=== PATIENT | male | born 1995 | race Caucasian/White ===

== ENCOUNTER 2023-03-12 16:09 | Emergency (ER) | payer OTHER, SELFPAY ==
--- NOTE | ~2023-03-12 | CT_ITS ---
EXAMINATION: CT cervical spine wo IV con, CT head/brain wo IV con INDICATION INFORMATION: Reason for Exam Syncope, neck pain, rule out fracture COMPARISON: None TECHNIQUE: Separate noncontrast CT examinations of the head and cervical spine were performed. Coronal and sagittal images were created for each examination at the technologist workstation. This CT examination was performed using dose optimization techniques as appropriate, variously including the following: *Automated exposure control *Adjustment of mA and/or kV according to patient size (this includes techniques or standardized protocols for targeted exams where dose is matched to indication/reason for exam; i.e. extremities or head) *Use of iterative reconstruction technique DLP: 1128 mGy-cm FINDINGS: Head: No acute osseous or soft tissue abnormality. The mastoid air cells and visualized portions of the paranasal sinuses are well aerated. There is no evidence of acute intracranial hemorrhage or territorial infarction. No abnormal mass effect or midline shift is seen. Bruce to white matter differentiation is well preserved. No extra-axial fluid collections are identified. There are several punctate calcifications in the right frontal lobe. No hydrocephalus. No significant volume loss. There is no abnormal attenuation within the brain parenchyma. Cervical spine: There is no evidence of acute cervical spine fracture. Vertebral bodies remain normal in height. Degenerative disc disease at C3-C4. Left greater than right facet arthropathy at C7-T1. Cervical straightening. No pre- or paravertebral soft tissue abnormality is identified. Visualized portions of the lung apices are unremarkable. The thyroid gland is unremarkable. Several dental caries. CT/CT cervical spine wo IV con IMPRESSION: 1. No acute intracranial abnormality including hemorrhage, mass effect, hydrocephalus, or acute territorial edematous infarction. 2. Several punctate foci of calcification in the right frontal lobe are nonspecific but may reflect dystrophic calcification in the setting of prior infection or inflammation. Correlate with clinical history. 3. No cervical spine fracture or traumatic malalignment.
[2023-03-12 16:15] VITALS: BP 145/100; PULSE 85; O2SAT 100
[2023-03-12 16:36] VITALS: BP 150/96; PULSE 85; RESP 14; TEMP 37; O2SAT 100; BMI 29.2
[2023-03-12 16:40] VITALS: BP 150/96; PULSE 85; RESP 14; TEMP 37
[2023-03-12 18:00] VITALS: BP 159/118; PULSE 78; RESP 15; TEMP 37.1; O2SAT 100
--- NOTE | 2023-03-12 18:16 | ED_ITS ---
HPI - Fall General Chief Complaint: Fall Stated Complaint: SYNCOPE Time Seen by Provider: 03/12/23 18:00 Source: patient Mode of arrival: EMS Limitations: no limitations History of Present Illness HPI Narrative: 27-year-old male who presents emergency department for evaluation tingling this in his lower extremities and syncope. The patient has a history of end-stage renal disease and was on peritoneal dialysis for 4 years. He was admitted to [facility] for abdominal pain, lower back pain, weakness and numbness of his lower extremities. He states that he was worked up for possible peritonitis and blood clots of his lower extremities. He states that while he was [facility] his pain was treated with Dilaudid. He states that he was discharged he still was having pain in his lower back and lower extremities. He states that he was walking the into his kitchen around 18:00 hours when he developed tingling this in both his legs he then had a syncopal episode. He was told by his mother that he struck his face and was unresponsive. An ambulance was called and he was brought to the emergency department. In the emergency department he is complaining of weakness, nausea, headache, tingling this in both lower extremities, lower back pain. The patient has a left chest dialysis catheter, right chest Port-A-Cath and peritoneal dialysis catheter still in place. He is receiving hemodialysis on Mondays, Wednesdays and Fridays. He states that he had a normal dialysis on Saturday with no complications. I did review summary packets obtained from [facility] pertaining to admission from 03/08/2023 until 03/11/2023. Patient initially was felt to have peritonitis secondary to peritoneal dialysis catheter and he was treated with vancomycin and Zosyn, however studies were unremarkable. The patient's pain however persisted. Discharge diagnosis was nonspecific abdominal pain, hy pertension and peritonitis. The hospitalist discharge note states the patient was requesting for opiate pain medications however there was no current indication to continue opiates as an outpatient and he was not discharged on opiates. 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 Social History Social History Alcohol intake: never Smoked in Last 30 Days: Yes Use of substances other than those prescribed or required for medical reasons: No Advance Directives: No Advance Directives Information Provided: No Physical Exam Vital Signs: Vital Signs: Last Vital Signs Temp 98.8 F 03/12/23 20:00 Pulse 77 03/12/23 20:00 Resp 15 03/12/23 20:00 BP 147/102 H 03/12/23 20:00 Pulse Ox 97 03/12/23 20:00 O2 Del Method Room Air 03/12/23 20:00 BMI result Body Mass Index 29.2 Const: Other: Awake, alert, male patient, pleasant, cooperative, he is tearful, answers all questions appropriately HEENT: Other: Patient's head is normal cephalic he does have tenderness palpation of his forehead, there is no facial tenderness, no ecchymosis or lacerations noted, mouth red moist membranes, pupils equal, round, reactive to light, sclera cont act however normal, no tenderness palpation of the patient's nose Eyes: General: appearance normal, both eyes and all related structures Pupils: Equal, round and reactive pupils present Neck: Other: Patient has diffuse tenderness with palpation of his trapezius muscles bilaterally with no localizing point tenderness palpation over the cervical spine Chest: Chest palpation & inspection: normal inspection of the chest and normal palpation of entire chest wall Resp: Effort & Inspection: normal respiratory effort and able to speak in complete sentences Auscultation: clear to auscultation bilaterally Cardio: Rate: regular rate Rhythm: regular rhythm Heart sounds: S1 normal heart sound present, S2 normal heart sound present and no murmurs GI: Other: Patient's abdomen does not appear to be distended, he has normoactive bowel sounds, he has mild diffuse tenderness, there is a peritoneal dialysis catheter in place Back/Spine/Pelvis: Other: Patient has no localizing point tenderness with palpation over his vertebrae of his back, he does have bilateral paraspinal muscle tenderness in the lumbar sacral area, there is no ecchymosis or lesions in this area Skin: General skin exam: no rashes or lesions noted Neuro: Other: Patient is oriented to person place, answers questions appropriately Cranial nerves: Yes CN's II-XII intact bilaterally and Yes Equal, round and reactive pupils present Cognition (Neuro): normal cognition Motor exam (neuro): 5/5 motor strength present throughout Deep tendon reflexes (DTR's): Right triceps reflex intensity grade: 2+, Left triceps reflex intensity grade: 2+, Rt Biceps (C5, C6): 2+, Left biceps reflex intensity grade: 2+, Right brachioradialis reflex intensity grade: 2+, Left brachioradialis reflex intensity grade: 2+, Right patellar reflex intensity grade: 2+, Left patellar reflex intensity grade: 2+, Right ankle reflex intensity grade: 2+ and Left ankle reflex intensity grade: 2+ Extrem: Other: Patient does have ecchymosis to his knees bilaterally, he has full range of motion of both knees, there is no edema noted to his lower extremities and his extremities are neurovascular intact Psych: Appearance: grossly normal Speech and movement: Normal speech and movement present Affect: Sad affect present (Patient is tearful) Attitude: cooperative Thought process: Normal thought process present Thought content: Normal thought content present Medications Administered Discontinued Medications Generic Name Dose Route Start Last Admin Trade Name Ruth Ann PRN Reason Stop Dose Admin Hydromorphone HCl 1 mg 03/12/23 18:18 03/12/23 19:08 Hydromorphone Hcl 1 Mg/Ml Syringe IVPUSH 03/12/23 18:19 1 mg ONCE STA Administration Protocol Hydromorphone HCl 1 mg 03/12/23 21:02 03/12/23 21:10 Hydromorphone Hcl 1 Mg/Ml Syringe IVPUSH 03/12/23 21:03 1 mg ONCE STA Administration Protocol Ondansetron HCl 4 mg 03/12/23 18:18 03/12/23 19:08 Ondansetron Hcl 4 Mg/2 Ml Vial IVPUSH 03/12/23 18:19 4 mg ONCE ONE Administration Medical Decision Making Medical Decision Making [facility] Narrative: 27-year-old male history of end-stage renal disease with 4 years of peritoneal dialysis now with hemodialysis on Saturday, Saturday and Saturday who presents emergency department for evaluation of lower back, lower extremity pain and tingling of his lower extremities x5 days with syncopal episode today when he was walking to his kitchen. Patient did fall face forward and was reported to have a loss of consciousness by his mother. Patient was recently hospitalized at [facility] for lower back , lower extremity pain , abdominal pain and peritonitis which was initially treated with antibiotics but the infectious workup was negative. The patient's physical examination did reveal mild diffuse abdominal tenderness, tenderness palpation of his trapezius muscles, tenderness with palpation of his lumbar sacral paraspinal muscles with no point tenderness of his cervical spine or vertebrae. Patient's lower extremities have normal strength with normal reflexes and his neurologic exam was nonfocal. I ordered the following tests: CBC, CMP, lipase, ethanol, PT/INR, PTT CT scan of the cervical spine, CT scan of the brain. Ordered the nurse to access his Port-A-Cath and the patient was given Zofran 4 mg IV and Dilaudid 1 mg IV. Patient will be placed on a cardiac and O2 saturation monitor 2101: Patient's electrolytes were unremarkable, mild anemia but chronic Patient's PTT is elevated however patient does have a Port-A-Cath and has had burn flushes. CT scan of the head and cervical spine were unremarkable Patient is feeling better after the above treatment, however he is still having pains was given a 2nd dose of Dilaudid 1 mg IV. Patient will be discharged home and advised to follow-up with his PCP and [facility] [employer] [facility]. Differential Diagnosis Differential diagnosis includes was not limited to: syncope caused by arrhythmia, anemia, electrolyte abnormality, anemia, hyperventilation syndrome/anxiety Skull fracture, cervical fracture, intracranial bleed Admission/Observation Consideration of admission/observation: Escalation of care including admission/observation considered Lab Data MDM Lab Attestation statement: I reviewed the patient's lab results. My interpretation patient's laboratory evaluation is as follows: Anemia with an H&H of 11 and 33 with a normal MCV-consistent anemia chronic disease/renal failure. Low platelet count a 203602. PTT is elevated at 123, the patient does have a Port-A-Cath that is been flushed with heparin and is also a dialysis patient. 06/20/23 18:52 03/12/23 18:52 Labs: Lab Results 03/12/23 03/12/23 03/12/23 Range/Units 18:52 18:52 18:52 WBC 5.5 (4.8-10.8) X10*3/uL RBC 3.70 L (4.60-5.80) X10*6/uL Hgb 11.0 L (14.0-18.0) g/dl Hct 33.4 L (42.0-52.0) % MCV 90.3 (80.0-98.0) fL MCH 29.7 (27.0-33.0) pg MCHC 32.9 (31.0-36.0) g/dl RDW 13.7 (11.0-16.0) % Plt Count 127 L (160-400) X10*3/uL MPV 9.2 L (9.4-12.4) fL Immature Gran % (Auto) 0.4 (0.0-0.4) % Neut % (Auto) 61.5 (45-73) % Lymph % (Auto) 22.8 (20-40) % [place] % (Auto) 12.2 H (2-11) % Eos % (Auto) 2.4 (0-4) % Baso % (Auto) 0.7 (0-2) % Lymph # (Auto) 1.3 (1.2-4.9) X10*3/uL [place] # (Auto) 0.7 (0.1-1.2) X10*3/uL Eos # (Auto) 0.1 (0.0-0.4) X10*3/uL Baso # (Auto) 0.0 (0.0-0.2) X10*3/uL Abs Immat Gran (auto) 0.02 (0.00-0.03) X10*3/uL Absolute Neuts (auto) 3.4 (2.0-8.3) x10*3/uL Absolute Nucleated RBC 0.000 (0.0-0.012) X10*3/uL Nucleated RBC % (auto) 0.0 (0.0-0.2) /100WBC PT 10.0 (10.0-13.1) SEC INR 0.9 (0.9-1.1) APTT 123.4 H* (26.0-36.4) SEC Sodium 140 (135-145) mmol/L Potassium 4.3 (3.3-5.1) mmol/L Chloride 98 (96-108) mmol/L Carbon Dioxide 26 (22-29) mmol/L Anion Gap 20 (12-20) BUN 18 H (9-16) mg/dL Creatinine 10.67 H* (0.5-1.4) mg/dL Estim Creat Clear Calc 12.4 Estimated GFR 6 Random Glucose 80 (60-115) mg/dL Calcium 10.0 (8.4-10.2) mg/dL Total Bilirubin 0.6 (0.0-1.0) mg/dL AST 33 (5-37) U/L ALT 17 (0-40) U/L Alkaline Phosphatase 58 (39-117) U/L Total Protein 6.1 L (6.5-8.0) g/dL Albumin 3.7 (3.5-5.0) g/dL Lipase 15 (8-78) U/L Ethyl Alcohol mg/dL 03/12/23 Range/Units 18:52 WBC (4.8-10.8) X10*3/uL RBC (4.60-5.80) X10*6/uL Hgb (14.0-18.0) g/dl Hct (42.0-52.0) % MCV (80.0-98.0) fL MCH (27.0-33.0) pg MCHC (31.0-36.0) g/dl RDW (11.0-16.0) % Plt Count (160-400) X10*3/uL MPV (9.4-12.4) fL Immature Gran % (Auto) (0.0-0.4) % Neut % (Auto) (45-73) % Lymph % (Auto) (20-40) % [place] % (Auto) (2-11) % Eos % (Auto) (0-4) % Baso % (Auto) (0-2) % Lymph # (Auto) (1.2-4.9) X10*3/uL [place] # (Auto) (0.1-1.2) X10*3/uL Eos # (Auto) (0.0-0.4) X10*3/uL Baso # (Auto) (0.0-0.2) X10*3/uL Abs Immat Gran (auto) (0.00-0.03) X10*3/uL Absolute Neuts (auto) (2.0-8.3) x10*3/uL Absolute Nucleated RBC (0.0-0.012) X10*3/uL Nucleated RBC % (auto) (0.0-0.2) /100WBC PT (10.0-13.1) SEC INR (0.9-1.1) APTT (26.0-36.4) SEC Sodium (135-145) mmol/L Potassium (3.3-5.1) mmol/L Chloride (96-108) mmol/L Carbon Dioxide (22-29) mmol/L Anion Gap (12-20) BUN (9-16) mg/dL Creatinine (0.5-1.4) mg/dL Estim Creat Clear Calc Estimated GFR Random Glucose (60-115) mg/dL Calcium (8.4-10.2) mg/dL Total Bilirubin (0.0-1.0) mg/dL AST (5-37) U/L ALT (0-40) U/L Alkaline Phosphatase (39-117) U/L Total Protein (6.5-8.0) g/dL Albumin (3.5-5.0) g/dL Lipase (8-78) U/L Ethyl Alcohol < 10 mg/dL Independent Interpretation I performed an independent interpretation of an: EKG Interpretation: My independent interpretation patient's 12 EKG is as follows: Normal sinus rhythm at a rate of 79, normal VT interval, prolonged QRS of 102 milliseconds, normal QTC interval, inverted T-waves in lead 1 and aVL, no ST segment elevatio n, no ST segment depression, no PACs, no PVCs, except for the T-wave abnormalities this is a normal EKG Radiology Impression Discussion of test interpretation with radiology: I have reviewed the radiologist's reading. Radiologist Impression: CT head/brain wo IV con and CT cervical spine wo IV con IMPRESSION: 1. No acute intracranial abnormality including hemorrhage, mass effect, hydrocephalus, or acute territorial edematous infarction. 2. Several punctate foci of calcification in the right frontal lobe are nonspecific but may reflect dystrophic calcification in the setting of prior infection or inflammation. Correlate with clinical history. 3. No cervical spine fracture or traumatic malalignment. Dictated By:Jamaal Serrato Discharge Plan Discharge Clinical Impression: Bilateral lower extremity pain Back pain Qualifiers: Back pain location: low back pain Chronicity: acute Back pain laterality: bilateral Sciatica presence: without sciatica Qualified Code(s): M54.50 - Low back pain, unspecified Syncope Qualifiers: Encounter type: initial encounter Patient Disposition: Home, Self-Care Instructions: Syncope (ED) Additional Instructions: The CT scan your head and neck revealed no skull fracture, no bleeding in the brain, no neck fracture Your blood work revealed mild anemia which is consistent with your kidney disease Your electrolytes were normal At this time I do not have a clear cause for your back pain, leg pain and for passing out. You did receive Dilaudid 1 mg IV x2 here in the emergency department. Continue taking medications as prescribed by your providers. Follow-up with your doctor in 2 days. Please return to the emergency department if your symptoms get worse or if you develop any symptoms that are concerning to you.
[2023-03-12 18:56] LABS: MANUAL DIFF FLAG NO
[2023-03-12 19:00] LABS: Basophils Percent Auto 0.7 % (0-2); Eosinophils Absolute Auto 0.1 X10*3/uL (0.0-0.4); Eosinophils Percent Auto 2.4 % (0-4); Hematocrit 33.4 % (42.0-52.0); Imm Gran Abs Auto 0.02 X10*3/uL (0.00-0.03); Imm Gran Pct Auto 0.4 % (0.0-0.4); Lymphocytes Absolute Auto 1.3 X10*3/uL (1.2-4.9); Lymphocytes Percent Auto 22.8 % (20-40); Mean Corpuscular HGB Conc 32.9 g/dl (31.0-36.0); Mean Corpuscular Hemoglobin 29.7 pg (27.0-33.0); Mean Corpuscular Volume 90.3 fL (80.0-98.0); Mean Platelet Volume 9.2 fL (9.4-12.4); Monocytes Absolute Auto 0.7 X10*3/uL (0.1-1.2); Monocytes Percent Auto 12.2 % (2-11); Neutrophils Absolute Auto 3.4 x10*3/uL (2.0-8.3); Neutrophils Percent Auto 61.5 % (45-73); Platelet Count 127 X10*3/uL (160-400); Red Cell Distribution Width 13.7 % (11.0-16.0); White Blood Count 5.5 X10*3/uL (4.8-10.8)
[2023-03-12] MEDS: ondansetron HCL 4 MG/2 ML VIAL IVPUSH (19:08)
[2023-03-12] MEDS: HYDROmorphone HCl 1 MG/ML SYRINGE IVPUSH ×2 (19:08→21:10)
[2023-03-12 19:18] LABS: Ethanol < 10 mg/dL
[2023-03-12 19:23] LABS: Alanine Aminotransferase 17 U/L (0-40); Albumin Level 3.7 g/dL (3.5-5.0); Alkaline Phosphatase 58 U/L (39-117); Anion Gap 20 (12-20); Aspartate Amino Transferase 33 U/L (5-37); Bilirubin Total 0.6 mg/dL (0.0-1.0); Blood Urea Nitrogen 18 mg/dL (9-16); Carbon Dioxide 26 mmol/L (22-29); Chloride 98 mmol/L (96-108); Creatinine Clr Calc Pharmacy 12.4; Estimated Glomerular Filt Rate 6; Glucose Random 80 mg/dL (60-115); Lipase 15 U/L (8-78); Potassium 4.3 mmol/L (3.3-5.1); Sodium 140 mmol/L (135-145); Total Protein 6.1 g/dL (6.5-8.0)
[2023-03-12 19:32] LABS: INTERNATIONAL NORM RATIO 0.9 (0.9-1.1)
--- NOTE | 2023-03-12 19:54 | PC.NURSE ---
assumed care of patient at 1900 - pt medicated per nov. pt reporting 8/10 pain to thighs radiating to lower back. pt states this has been constant for a few weeks now. pt given zofran as well for nausea. on cardiac care unit nurse, resting comfortably. call navarro within reach. waiting for CT scans and ED provider. will CTM.
[2023-03-12 20:00] VITALS: BP 147/102; PULSE 77; RESP 15; TEMP 37.1; O2SAT 97
--- NOTE | 2023-03-12 21:12 | ECG_ITS ---
Test Reason : SYNCOPE Blood Pressure : / mmHG Vent. Rate : 079 BPM Atrial Rate : 079 BPM P-R Int : 178 ms QRS Dur : 102 ms QT Int : 386 ms P-R-T Axes : 041 009 072 degrees QTc Int : 442 ms Normal sinus rhythm Nonspecific ST and T wave abnormality Abnormal ECG No previous ECGs available Referred By: Stefan Medina Electronically Signed By:CHASE FERREIRA
[2023-03-12 21:41] LABS: Partial Thromboplastin Time 123.4 SEC (26.0-36.4)
--- NOTE | 2023-03-12 22:02 | PC.NURSE ---
pt port deaccessed using normal saline flush and heparin lock flush per provider request. dressing applied. pt tolerated well. pt ready for discharge. verbalizes understanding of discharge instructions . no apparent distress or current complaints.
== END 2023-03-12 22:10 | disposition home or self-care (01) ==
PROVIDERS: Emergency Provider Emergency Medicine Emergency Medical Services
DX: R55 Syncope and collapse (principal); M54.50 Low back pain, unspecified; R20.0 Anesthesia of skin; R60.0 Localized edema; M54.2 Cervicalgia; R51.9 Headache, unspecified; Z79.899 Other long term (current) drug therapy
CPT/HCPCS: 36415; 70450; 72125; 80053; 80307; 83690; 85025; 85610; 85730; 93005; 96374; 96375; 96376; 99284; J1170; J1642; J2405

== ENCOUNTER 2023-03-13 13:27 | Inpatient (IN) | payer OTHER, SELFPAY ==
--- NOTE | 2023-03-13 | EEG_ITS ---
INTERPRETATION: This is a 16-channel EEG with an EKG lead. Patient is reported drowsy during the tracing. Background is intermittently about 10 hertz, 5 to 20 microvolt posteriorly and lower amplitude fast anteriorly. Patient goes in and out of drowsiness. Also, intermittently bifrontal slowing was noted in theta to delta range with 1 bifrontal sharp wave. Photic stimulation did not produce any significant driving. Hyperventilation is not performed. Cardiac lead did not reveal any significant abnormality. 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 MD KARINA Turpin/BALA / [id number]
--- NOTE | ~2023-03-13 | XR_ITS ---
EXAMINATION: CHEST, LEFT SHOULDER, AND LEFT ELBOW CLINICAL INFORMATION: Fall with pain COMPARISON: Elbow of July 20, 2015 TECHNIQUE: Two-view chest, 3 view left shoulder, and 3 view left elbow. FINDINGS: Two-view chest does not demonstrate any evidence of acute parenchymal disease, pneumothorax, or pleural effusion. Heart normal size. No evidence of pulmonary edema. Right internal jugular port catheter in place with tip in the distal superior vena cava. Left internal jugular dialysis catheter seen with tip in the region of the superior right atrium. There is no evidence of acute fracture or dislocation of the left shoulder. Glenohumeral joint appears unremarkable. No evidence of calcific tendinitis. Acromioclavicular joint appears unremarkable. No widening of the coracoclavicular space is seen. There is no evidence of acute fracture or dislocation of the left elbow. No left elbow effusion is identified. Joint spaces are maintained. XR/XR elbow LT min 3V IMPRESSION: No acute disease within the chest. No significant bony abnormality of the left shoulder identified. No bony abnormality or effusion of the left elbow.
--- NOTE | ~2023-03-13 | XR_ITS ---
EXAMINATION: CHEST, LEFT SHOULDER, AND LEFT ELBOW CLINICAL INFORMATION: Fall with pain COMPARISON: Elbow of July 20, 2015 TECHNIQUE: Two-view chest, 3 view left shoulder, and 3 view left elbow. FINDINGS: Two-view chest does not demonstrate any evidence of acute parenchymal disease, pneumothorax, or pleural effusion. Heart normal size. No evidence of pulmonary edema. Right internal jugular port catheter in place with tip in the distal superior vena cava. Left internal jugular dialysis catheter seen with tip in the region of the superior right atrium. There is no evidence of acute fracture or dislocation of the left shoulder. Glenohumeral joint appears unremarkable. No evidence of calcific tendinitis. Acromioclavicular joint appears unremarkable. No widening of the coracoclavicular space is seen. There is no evidence of acute fracture or dislocation of the left elbow. No left elbow effusion is identified. Joint spaces are maintained. XR/XR chest 2V IMPRESSION: No acute disease within the chest. No significant bony abnormality of the left shoulder identified. No bony abnormality or effusion of the left elbow.
--- NOTE | ~2023-03-13 | XR_ITS ---
EXAMINATION: CHEST, LEFT SHOULDER, AND LEFT ELBOW CLINICAL INFORMATION: Fall with pain COMPARISON: Elbow of July 20, 2015 TECHNIQUE: Two-view chest, 3 view left shoulder, and 3 view left elbow. FINDINGS: Two-view chest does not demonstrate any evidence of acute parenchymal disease, pneumothorax, or pleural effusion. Heart normal size. No evidence of pulmonary edema. Right internal jugular port catheter in place with tip in the distal superior vena cava. Left internal jugular dialysis catheter seen with tip in the region of the superior right atrium. There is no evidence of acute fracture or dislocation of the left shoulder. Glenohumeral joint appears unremarkable. No evidence of calcific tendinitis. Acromioclavicular joint appears unremarkable. No widening of the coracoclavicular space is seen. There is no evidence of acute fracture or dislocation of the left elbow. No left elbow effusion is identified. Joint spaces are maintained. XR/XR shoulder LT min 2V IMPRESSION: No acute disease within the chest. No significant bony abnormality of the left shoulder identified. No bony abnormality or effusion of the left elbow.
--- NOTE | ~2023-03-13 | CT_ITS ---
EXAMINATION: CT HEAD WITHOUT CONTRAST CT CERVICAL SPINE WITHOUT CONTRAST CLINICAL INFORMATION: Headache. Syncope. Neck pain. COMPARISON: CT head and cervical spine 03/12/2023 TECHNIQUE: Imaging was performed from the skull base to vertex without intravenous administration of contrast. In addition, helical noncontrast CT imaging was acquired through the cervical spine and source images were reviewed along with axial reconstructions and sagittal and coronal MPRs. [This CT examination was performed using dose optimization techniques as appropriate, variously including the following: *Automated exposure control *Adjustment of mA and/or kV according to patient size (this includes techniques or standardized protocols for targeted exams where dose is matched to indication/reason for exam; i.e. extremities or head) *Use of iterative reconstruction technique] DLP: 1253 mGy-cm FINDINGS: HEAD: No intracranial mass, hemorrhage, or midline shift is visualized. The ventricles and sulci are proportional. No extra-axial collections are identified. Redemonstration of small calcifications in the right frontal lobe unchanged since prior studies. The paranasal sinuses and mastoid air cells are well aerated. CERVICAL SPINE: There is no evidence of acute cervical spine fracture. Vertebral bodies remain normal in height. Cervical vertebrae have normal alignment. There is multilevel degenerative spondylosis of the cervical spine with disc height narrowing and endplate spurs. This is most significant at the C3-C4 disc level. No pre- or paravertebral soft tissue abnormality is identified. Limited assessment of the lung apices is unremarkable. CT/CT cervical spine wo IV con IMPRESSION: 1. No acute intracranial pathology. 2. No CT evidence of acute cervical spine fracture or traumatic subluxation
--- NOTE | ~2023-03-13 | CT_ITS ---
EXAMINATION: CT HEAD WITHOUT CONTRAST CT CERVICAL SPINE WITHOUT CONTRAST CLINICAL INFORMATION: Headache. Syncope. Neck pain. COMPARISON: CT head and cervical spine 03/12/2023 TECHNIQUE: Imaging was performed from the skull base to vertex without intravenous administration of contrast. In addition, helical noncontrast CT imaging was acquired through the cervical spine and source images were reviewed along with axial reconstructions and sagittal and coronal MPRs. [This CT examination was performed using dose optimization techniques as appropriate, variously including the following: *Automated exposure control *Adjustment of mA and/or kV according to patient size (this includes techniques or standardized protocols for targeted exams where dose is matched to indication/reason for exam; i.e. extremities or head) *Use of iterative reconstruction technique] DLP: 1253 mGy-cm FINDINGS: HEAD: No intracranial mass, hemorrhage, or midline shift is visualized. The ventricles and sulci are proportional. No extra-axial collections are identified. Redemonstration of small calcifications in the right frontal lobe unchanged since prior studies. The paranasal sinuses and mastoid air cells are well aerated. CERVICAL SPINE: There is no evidence of acute cervical spine fracture. Vertebral bodies remain normal in height. Cervical vertebrae have normal alignment. There is multilevel degenerative spondylosis of the cervical spine with disc height narrowing and endplate spurs. This is most significant at the C3-C4 disc level. No pre- or paravertebral soft tissue abnormality is identified. Limited assessment of the lung apices is unremarkable. CT/CT head/brain wo IV con IMPRESSION: 1. No acute intracranial pathology. 2. No CT evidence of acute cervical spine fracture or traumatic subluxation
--- NOTE | ~2023-03-13 | MR_ITS ---
EXAMINATION: MR LUMBAR SPINE WITHOUT AND WITH CONTRAST CLINICAL INFORMATION: Lower back pain. Disc disease. Abscess. COMPARISON: None available. TECHNIQUE: MRI of the lumbar spine was obtained using routine sequences without and following the administration of 10 mL of Gadavist intravenous contrast. FINDINGS: Mild left convex curvature of the lumbar spine. Mild degenerative retrolisthesis of L5 on S1. Otherwise, normal anatomic alignment. Moderate degenerative disc disease from T11-L3. Mild degenerative disc disease at L5-S1. Associated mixed Modic type discogenic endplate changes including mild Modic type I discogenic edema at L1-L2 and L2-L3. No additional suspicious marrow edema. Small Schmorl's nodes from T11-L3. Otherwise, the vertebral body heights are well-maintained. Normal anatomic alignment. Normal, homogeneous marrow signal throughout. The vertebral body heights are maintained. The intervertebral discs are of normal height and signal. The conus medullaris terminates at the level of L1-L2. The distal spinal cord is normal in appearance. No abnormal contrast enhancement. Moderate subcutaneous edema within the soft tissues of the back from L2-L5. No additional significant abnormalities of the paraspinal musculature. Limited evaluation of the intra-abdominal structures without significant abnormalities. The abdominal aorta is of normal contour and caliber. AXIAL SPINAL LEVELS: T12-L1: Mild diffuse disc bulge with superimposed small central disc extrusion with mild superior migration. There is mild bilateral facet joint arthropathy. There is no neural foraminal stenosis. There is mild spinal canal stenosis. L1-L2: Shallow diffuse disc bulge. There is mild bilateral facet joint arthropathy. There is no neural foraminal stenosis. There is no spinal canal stenosis. L2-L3: Shallow diffuse disc bulge. There is mild bilateral facet joint arthropathy. There is mild left and no right neural foraminal stenosis. There is no spinal canal stenosis. L3-L4: Shallow diffuse disc bulge with superimposed small left foraminal disc protrusion. There is moderate bilateral facet joint arthropathy. There is mild bilateral neural foraminal stenosis. There is mild narrowing of the subarticular zones with no overt spinal canal stenosis centrally. L4-L5: Mild diffuse disc bulge. There is moderate right and mild left facet joint arthropathy. There is mild left and no right neural foraminal stenosis. There is narrowing of the subarticular zones with no overt spinal canal stenosis centrally. L5-S1: Mild diffuse disc bulge. There is mild bilateral facet joint arthropathy. There is mild neural foraminal stenosis. There is no spinal canal stenosis. MR/MR lumbar spine wo/w con IMPRESSION: Mild to moderate multilevel degenerative spondyloarthropathy of the lumbar spine as described in detail above. Most notably, there is mild spinal canal stenosis at T12-L1. Mild narrowings of the subarticular zones at L3-L4 and L4-L5. Mild neural foraminal stenoses from L2-S1.
--- NOTE | ~2023-03-13 | MR_ITS ---
MR BRAIN WITHOUT AND WITH CONTRAST CLINICAL INFORMATION: Abnormal CT. COMPARISON: Head CT 03/13/2023. TECHNIQUE: Multiplanar, multisequence MRI of the brain was obtained before and after the intravenous administration of 10 mL Gadavist. FINDINGS: Coarse calcifications within the inferior aspect of the right frontal lobe are better demonstrated on the prior CT study. On MRI there is a developmental venous anomaly in this location and dystrophic calcifications are associated with DVAs. There is no adjacent abnormal signal. There is increased FLAIR signal within the inner ear structures bilaterally, possibly labyrinthitis that can be clinically correlated. There is no hydrocephalus, extra-axial surface collection, or herniation. The major flow voids at the skull base are preserved. There is no acute infarct on diffusion-weighted imaging. There is no intracranial hemorrhage on the gradient recalled echo acquisition. The midline structures are normal. The cerebellar tonsils are normally positioned. The cerebellum and brainstem are normal. The craniocervical junction is normal. Osseous marrow signal intensity is homogenous. The visualized soft tissues are unremarkable. MR/MR head/brain wo/w con IMPRESSION: Coarse calcifications within the inferior aspect of the right frontal lobe are better demonstrated on the prior CT study. On MRI there is a developmental venous anomaly in this location and dystrophic calcifications are associated with DVAs. There is no adjacent abnormal signal. There is increased FLAIR signal within the inner ear structures bilaterally, possibly labyrinthitis that can be clinically correlated.
[2023-03-13 13:46] VITALS: BP 139/90; PULSE 80; O2SAT 100
--- NOTE | 2023-03-13 13:58 | ECG_ITS ---
Test Reason : SYNCOPE Blood Pressure : / mmHG Vent. Rate : 067 BPM Atrial Rate : 067 BPM P-R Int : 178 ms QRS Dur : 084 ms QT Int : 388 ms P-R-T Axes : 058 009 055 degrees QTc Int : 409 ms Normal sinus rhythm Normal ECG When compared with ECG of 12-MAR-2023 21:14, Nonspecific T wave abnormality, improved in Anterolateral leads Referred By: Stefan Medina Electronically Signed By:CHASE FERREIRA
[2023-03-13 14:06] VITALS: BP 159/119; PULSE 74; RESP 16; TEMP 37; O2SAT 100; BMI 29.1
--- NOTE | 2023-03-13 14:06 | ED_ITS ---
HPI - Syncope General Chief Complaint: General Medical Stated Complaint: neck pain, fainted per EMS Time Seen by Provider: 03/13/23 13:36 Source: patient Mode of arrival: EMS Limitations: no limitations History of Present Illness HPI narrative: 27-year-old male with a history of ADHD, hyperactivity, anemia, anxiety, depression, remote history of drug addiction with IV heroin use disorder-no use in 3 years and marijuana daily use , end-stage renal disease, glomerulonephritis, hematemesis, hypertension, migraines without auras, osteomyelitis of the cervical spine, sleep apnea, lupus who presents emergency department for evaluation syncopal episode , lower back pain and pain in his legs from the knees down to his ankles bilaterally. The patient was seen in the emergency department by me yesterday for a similar presentation. The patient has been experiencing lower back pain and bilateral lower extremity pain times weeks. He states that he feels like his lower back it is bruised . He states that he has pain in both legs from the knees down to the ankles which she describes as a tingly sensation. He states that the pain in his back in 8/10 at its worst. The patient was recently hospitalized at [facility] from 03/08/2023 for until 03/11/2023 for abdominal pain and was ruled out for peritonitis (patient was getting peritoneal dialysis and is now getting hemodialysis through a left chest dialysis catheter). Yesterday he was walking into his kitchen, he had a syncopal episode and fell forward. He had no premonition prior to the syncopal episode and remembers waking up on the floor. He was seen by me in the emergency department, he had a CT scan of the head and neck which was negative and laboratory evaluation and EKG which were unremarkable. Labs were consistent with his end-stage renal disease. Patient was treated yesterday with Dilaudid x2 doses and sent home. He states that since being [place], he has continued to have constant pain in his lower back and a tingly pain from his knees down to his ankles bilaterally. He states that he was walking into the kitchen to get something out of the refrigerator and the next thing he remembers is waking up on the floor. His sister witnessed him falling into the refrigerator and then onto the floor. Patient did have a period of unresponsiveness. Patient states that he had no warning or premonition that he was going to pass out. Patient is currently complaining of neck pain, left shoulder pain, left elbow pain, lower back pain and pain from his knees to his ankles bilaterally. The patient was supposed to be dialyzed today at 11:00 however he states that he was unable to go to dialysis secondary to his back pain in his lower extremity pain. Related Data Allergies Allergy/AdvReac Type Severity Reaction Status Date / Time acetaminophen [From Percocet] Allergy Unknown Verified 03/13/23 14:05 codeine Allergy Unknown Verified 03/13/23 14:05 oxycodone [From Percocet] Allergy Unknown Verified 03/13/23 14:05 Review of Systems Review of Systems: Yes all other systems are reviewed and are negative [facility] Past Medical History [facility] Narrative: Past medical history: ADHD, hyperactivity, anemia, anxiety, depression, remote history of drug addiction with IV heroin use disorder and marijuana daily use now in remission in [facility], end-stage renal disease on hemodialysis Mondays, Wednesdays and Fridays, glomerulonephritis, hematemesis, hypertension, migraines without auras, osteomyelitis of the cervical spine, sleep apnea, lupus. Past social history: He denies tobacco, alcohol and drug use. Social History Social History Alcohol intake: never Smoked in Last 30 Days: No Advance Directives: No Advance Directives Information Provided: No Physical Exam Vital Signs: Vital Signs: Last Vital Signs Temp 98.4 F 03/13/23 17:04 Pulse 90 03/13/23 17:04 Resp 16 03/13/23 17:04 BP 165/125 H 03/13/23 17:04 Pulse Ox 98 03/13/23 17:04 O2 Del Method Room Air 03/13/23 17:04 BMI result Body Mass Index 29.1 Const: Other: Awake, alert, male patient, pleasant, cooperative, in no distress, patient sad appearing and is tearful, answers all questions appropriately HEENT: Head: Yes normal to inspection, Yes normocephalic and Yes atraumatic Ears: external ears normal General nose exam: Normal external nose present Face and sinus: Yes normal facial exam Mouth: Normal oral and palatal mucosa present Throat: Yes posterior oropharynx normal Eyes: General: appearance normal, both eyes and all related structures Neck: Other: Tender left trapezius muscle and scapular area, no point tenderness palpation over the cervical spine Neck: Yes supple Chest: Other: Mild left chest wall tenderness, patient has a dialysis catheter and his left c hest and a Port-A-Cath in his right chest Resp: Effort & Inspection: normal respiratory effort and able to speak in complete sentences Auscultation: clear to auscultation bilaterally Cardio: Rate: regular rate Rhythm: regular rhythm Heart sounds: S1 normal heart sound present, S2 normal heart sound present and no murmurs GI: Inspection: Yes normal to inspection Palpation (GI): Soft to palpation, nontender and no guarding Auscultation: normal bowel sounds Back/Spine/Pelvis: Other: No point tenderness over the thoracic, lumbar sacral vertebrae, patient does have tenderness palpation paraspinal muscles bilaterally in the lumbar sacral area Skin: General skin exam: no rashes or lesions noted Neuro: Other: Patient is awake and alert oriented to person place, cranial nerves 2-12 are int act, patient does have weakness of his lower extremities secondary to pain, his able to raise his legs up against gravity, he has 2+ upper and lower extremity reflexes Extrem: Other: Patient has tenderness with palpation of his left shoulder, has ecchymosis to his left biceps area with tenderness with palpation of his left elbow with soft tissue swelling and ecchymosis over the elbow Psych: Appearance: grossly normal Speech and movement: Normal speech and movement present Attitude: cooperative Medications Administered Discontinued Medications Generic Name Dose Route Start Last Admin Trade Name Freq PRN Reason Stop Dose Admin Diphenhydramine HCl 25 mg 03/13/23 16:56 03/13/23 17:01 Diphenhydramine Hcl 50 Mg/Ml Vial IVPUSH 03/13/23 16:57 25 mg ONCE ONE Administration Gadobutrol 10 ml 03/13/23 16:31 03/13/23 16:31 Gadobutrol 10 Ml Vial IVPUSH 03/13/23 16:32 10 ml ONCE ONE Administration Hydromorphone HCl 1 mg 03/13/23 13:57 03/13/23 15:25 Hydromorphone Hcl 1 Mg/Ml Syringe IVPUSH 03/13/23 13:58 1 mg ONCE STA Administration Protocol Hydromorphone HCl 1 mg 03/13/23 16:56 03/13/23 17:01 Hydromorphone Hcl 1 Mg/Ml Syringe IVPUSH 03/13/23 16:57 1 mg ONCE STA Administration Protocol Sodium Chloride 1,000 mls @ 999 mls/hr 03/13/23 13:57 03/13/23 17:02 Ns IV 03/13/23 14:57 999 mls/hr .[id number] STA Administration Medical Decision Making Medical Decision Making [facility] Narrative: 19-year-old male with history of end-stage renal disease on hemodialysis Mondays, Wednesdays and Fridays-missed dialysis today, lower back pain times weeks with pain to the bilateral lower extremities from the knees down to the ankles times weeks who has remote history heroin use with no reported use in 3 years who presents emergency department for evaluation of a syncopal episode. Patient states that he was walking in the kitchen go to the refrigerator when he woke up on the floor, fall was witnessed by his sister. Patient had a similar syncopal episode yesterday again when he was walking in the kitchen was seen here in the emergency department by me. Given the patient's repeat syncopal episode and persistent lower back pain with bilateral lower extremity pain I ordered the following tests: CBC, CMP, lipase, PT/INR, PTT, urine drug screen (patient did receive Dilaudid x2 yesterday in the emergency department), ETOH level lactic acid, lipase, CT scan of the head, cervical spine, x-ray of the left elbow, shoulder and chest x2. I will also try to obtain an MRI of the patient's lumbar sacral spine with and without contrast to rule out a paraspinal abscess. I did order the nurse to access the patient's Port-A-Cath and the patient was ordered to get Dilaudid 1 mg IV for his pain. 1801: The patient's laboratory evaluation was unremarkable. The patient's potassium is normal at 4.8. CT scan head and cervical spine was unremarkable. MRI of the lumbar sacral spine with and without contrast did not reveal a evidence for an abscess or other finding to explain the patient's lower back and bilateral lower extremity pain. Patient is feeling better after receiving 2 doses of Dilaudid 1 mg each. Given the fact that this is the patient's 2nd syncopal episode in 2 days with no prodrome symptoms, I will discuss admission with the covering hospitalist. 18 15: I did discuss the patient's presentation with the covering hospitalist, Dr. Lemuel Goldstein the patient will be admitted for further evaluation of his syncope. Differential Diagnosis Differential diagnosis includes was not limited to vasovagal syncope, tachyarrhythmia, bradyarrhythmia, electrolyte abnormality, paraspinal abscess, disc disease, vertebral disease, skull fracture, neck fracture, left shoulder fracture, left elbow fracture, rib fracture Admission/Observation Consideration of admission/observation: Escalation of care including admission/observation considered Lab Data MDM Lab Attestation statement: I reviewed the patient's lab results. My interpretation patient's laboratory evaluation is as follows: Low H&H 10.8 and 329-chronic unchanged from yesterday. Low platelet count a [id number]. Elevated PTT 68.8-patient has a Port-A-Cath which was flushed with heparin. BUN creatinine elevated 24 and 13.4 consistent with his chronic renal disease. Potassium was normal at 4.8. Alcohol below detectable limits. 03/13/23 15:16 03/13/23 15:16 Labs: Lab Results 03/13/23 03/13/23 03/13/23 Range/Units 15:16 15:16 15:16 WBC 5.3 (4.8-10.8) X10*3/uL RBC 3.67 L (4.60-5.80) X10*6/uL Hgb 10.8 L (14.0-18.0) g/dl Hct 32.9 L (42.0-52.0) % MCV 89.6 (80.0-98.0) fL MCH 29.4 (27.0-33.0) pg MCHC 32.8 (31.0-36.0) g/dl RDW 13.4 (11.0-16.0) % Plt Count 124 L (160-400) X10*3/uL MPV 8.5 L (9.4-12.4) fL Immature Gran % (Auto) 0.4 (0.0-0.4) % Neut % (Auto) 70.1 (45-73) % Lymph % (Auto) 17.8 L (20-40) % [place] % (Auto) 9.8 (2-11) % Eos % (Auto) 1.1 (0-4) % Baso % (Auto) 0.8 (0-2) % Lymph # (Auto) 1.0 L (1.2-4.9) X10*3/uL Nash # (Auto) 0.5 (0.1-1.2) X10*3/uL Eos # (Auto) 0.1 (0.0-0.4) X10*3/uL Baso # (Auto) 0.0 (0.0-0.2) X10*3/uL Abs Immat Gran (auto) 0.02 (0.00-0.03) X10*3/uL Absolute Neuts (auto) 3.7 (2.0-8.3) x10*3/uL Absolute Nucleated RBC 0.000 (0.0-0.012) X10*3/uL Nucleated RBC % (auto) 0.0 (0.0-0.2) /100WBC PT 9.8 L (10.0-13.1) SEC INR 0.9 (0.9-1.1) APTT 68.8 H* D (26.0-36.4) SEC Sodium 140 (135-145) mmol/L Potassium 4.8 (3.3-5.1) mmol/L Chloride 100 (96-108) mmol/L Carbon Dioxide 24 (22-29) mmol/L Anion Gap 21 H (12-20) BUN 24 H (9-16) mg/dL Creatinine 13.40 H* (0.5-1.4) mg/dL Estim Creat Clear Calc 9.9 Estimated GFR 4 Random Glucose 82 (60-115) mg/dL Lactic Acid (0.5-2.0) mmol/L Calcium 9.5 (8.4-10.2) mg/dL Total Bilirubin 0.5 (0.0-1.0) mg/dL AST 31 (5-37) U/L ALT 21 (0-40) U/L Alkaline Phosphatase 62 (39-117) U/L Total Protein 6.0 L (6.5-8.0) g/dL Albumin 3.7 (3.5-5.0) g/dL Lipase 48 (8-78) U/L Ethyl Alcohol < 10 mg/dL 03/13/23 Range/Units 15:16 WBC (4.8-10.8) X10*3/uL RBC (4.60-5.80) X10*6/uL Hgb (14.0-18.0) g/dl Hct (42.0-52.0) % MCV (80.0-98.0) fL MCH (27.0-33.0) pg MCHC (31.0-36.0) g/dl RDW (11.0-16.0) % Plt Count (160-400) X10*3/uL MPV (9.4-12.4) fL Immature Gran % (Auto) (0.0-0.4) % Neut % (Auto) (45-73) % Lymph % (Auto) (20-40) % [place] % (Auto) (2-11) % Eos % (Auto) (0-4) % Baso % (Auto) (0-2) % Lymph # (Auto) (1.2-4.9) X10*3/uL Nash # (Auto) (0.1-1.2) X10*3/uL Eos # (Auto) (0.0-0.4) X10*3/uL Baso # (Auto) (0.0-0.2) X10*3/uL Abs Immat Gran (auto) (0.00-0.03) X10*3/uL Absolute Neuts (auto) (2.0-8.3) x10*3/uL Absolute Nucleated RBC (0.0-0.012) X10*3/uL Nucleated RBC % (auto) (0.0-0.2) /100WBC PT (10.0-13.1) SEC INR (0.9-1.1) APTT (26.0-36.4) SEC Sodium (135-145) mmol/L Potassium (3.3-5.1) mmol/L Chloride (96-108) mmol/L Carbon Dioxide (22-29) mmol/L Anion Gap (12-20) BUN (9-16) mg/dL Creatinine (0.5-1.4) mg/dL Estim Creat Clear Calc Estimated GFR Random Glucose (60-115) mg/dL Lactic Acid 0.6 (0.5-2.0) mmol/L Calcium (8.4-10.2) mg/dL Total Bilirubin (0.0-1.0) mg/dL AST (5-37) U/L ALT (0-40) U/L Alkaline Phosphatase (39-117) U/L Total Protein (6.5-8.0) g/dL Albumin (3.5-5.0) g/dL Lipase (8-78) U/L Ethyl Alcohol mg/dL Independent Interpretation I performed an independent interpretation of an: EKG Interpretation: My independent interpretation patient's 12 EKG done at 1407 is as follows: Normal sinus rhythm rate of 67, normal IN interval, QRS duration QTC interval, no ST segment elevation, no ST segment depression, Q-wave lead 3, no T-wave abnormalities, no PACs, no PVCs, this is a normal EKG. No change compared to EKG 03/12/2023. Radiology Impression Discussion of test interpretation with radiology: I have reviewed the radiologist's reading. Radiologist Impression: CT head/brain wo IV con andCT cervical spine wo IV con IMPRESSION: IMPRESSION: 1. No acute intracranial pathology. 2. No CT evidence of acute cervical spine fracture or traumatic subluxation Dictated By:Gui Werner MD MR lumbar spine wo/w con IMPRESSION: Mild to moderate multilevel degenerative spondyloarthropathy of the lumbar spine as described in detail above. Most notably, there is mild spinal canal stenosis at T12-L1. Mild narrowings of the subarticular zones at L3-L4 and L4-L5. Mild neural foraminal stenoses from L2-S1. Dictated By:Neal Lucas DO Discharge Plan Discharge Patient Disposition: Admitted As Inpatient
[2023-03-13 15:22] LABS: MANUAL DIFF FLAG NO
[2023-03-13] MEDS: HYDROmorphone HCl 1 MG/ML SYRINGE IVPUSH ×2 (15:25→17:01)
[2023-03-13 15:27] LABS: Basophils Percent Auto 0.8 % (0-2); Eosinophils Absolute Auto 0.1 X10*3/uL (0.0-0.4); Eosinophils Percent Auto 1.1 % (0-4); Hematocrit 32.9 % (42.0-52.0); Hemoglobin 10.8 g/dl (14.0-18.0); Imm Gran Abs Auto 0.02 X10*3/uL (0.00-0.03); Imm Gran Pct Auto 0.4 % (0.0-0.4); Lymphocytes Percent Auto 17.8 % (20-40); Mean Corpuscular HGB Conc 32.8 g/dl (31.0-36.0); Mean Corpuscular Hemoglobin 29.4 pg (27.0-33.0); Mean Corpuscular Volume 89.6 fL (80.0-98.0); Mean Platelet Volume 8.5 fL (9.4-12.4); Monocytes Absolute Auto 0.5 X10*3/uL (0.1-1.2); Monocytes Percent Auto 9.8 % (2-11); Neutrophils Absolute Auto 3.7 x10*3/uL (2.0-8.3); Neutrophils Percent Auto 70.1 % (45-73); Platelet Count 124 X10*3/uL (160-400); Red Blood Count 3.67 X10*6/uL (4.60-5.80); Red Cell Distribution Width 13.4 % (11.0-16.0); White Blood Count 5.3 X10*3/uL (4.8-10.8)
[2023-03-13 15:38] LABS: INTERNATIONAL NORM RATIO 0.9 (0.9-1.1); Prothrombin Time 9.8 SEC (10.0-13.1)
[2023-03-13 15:39] LABS: Lactic Acid 0.6 mmol/L (0.5-2.0)
--- NOTE | 2023-03-13 15:46 | PC.NURSE ---
currently in MRI screening form completed and faxed at [phone]. Port accessed, labs done, premeditated with pain medication prior to scan
[2023-03-13 15:51] LABS: Partial Thromboplastin Time 68.8 SEC (26.0-36.4)
[2023-03-13 15:54] LABS: Alanine Aminotransferase 21 U/L (0-40); Albumin Level 3.7 g/dL (3.5-5.0); Alkaline Phosphatase 62 U/L (39-117); Anion Gap 21 (12-20); Aspartate Amino Transferase 31 U/L (5-37); Bilirubin Total 0.5 mg/dL (0.0-1.0); Blood Urea Nitrogen 24 mg/dL (9-16); Calcium 9.5 mg/dL (8.4-10.2); Carbon Dioxide 24 mmol/L (22-29); Chloride 100 mmol/L (96-108); Creatinine Clr Calc Pharmacy 9.9; Estimated Glomerular Filt Rate 4; Ethanol < 10 mg/dL; Glucose Random 82 mg/dL (60-115); Lipase 48 U/L (8-78); Potassium 4.8 mmol/L (3.3-5.1); Sodium 140 mmol/L (135-145)
[2023-03-13] MEDS: diphenhydrAMINE HCL 50 MG/ML VIAL 25 MG IVPUSH ×2 (17:01→22:46)
[2023-03-13] MEDS: 0.9 % Sodium Chloride 1,000 ML 999 ML IV (17:02)
[2023-03-13 17:04] VITALS: BP 165/125; PULSE 90; RESP 16; TEMP 36.9; O2SAT 98
[2023-03-13 18:00] VITALS: BP 186/129; PULSE 75; RESP 16; TEMP 36.8; O2SAT 97
--- NOTE | 2023-03-13 18:32 | PC.NURSE ---
pharmacy called for clondine, seen by hospitalist waiting on admit orders and bed assignment
--- NOTE | 2023-03-13 18:39 | MHC.EDTECH ---
Renal and Transplant was called @[phone]
--- NOTE | 2023-03-13 18:44 | P.HPHOSP_ITS ---
History of Present Illness Date of Service: 03/13/23 Chief Complaint: syncope 27-year-old male with a history of ADHD, hyperactivity, anemia, anxiety, depression, remote history of drug addiction with IV heroin use disorder-no use in 3 years and marijuana daily use , end-stage renal disease, glomerulonephritis, hematemesis, hypertension, migraines without auras, osteomyelitis of the cervical spine, sleep apnea, lupus who presents emergency department for evaluation syncopal episode , lower back pain and pain in his legs from the knees down to his ankles bilaterally.patient has been experiencing lower back pain and bilateral lower extremity pain times weeks.? He states that he feels like his lower back it is bruised .? He states that he has pain in both legs from the knees down to the ankles which she describes as a tingly sensation.? He states that the pain in his back in 05/02 at its worst.? The patie nt was recently hospitalized at [facility] from 03/08/2023 for until 03/11/2023 for abdominal pain and was ruled out for peritonitis (patient was getting peritoneal dialysis and is now getting hemodialysis through a left chest dialysis catheter).? Yesterday he was walking into his kitchen, he had a syncopal episode and fell forward.? He had no premonition prior to the syncopal episode and remembers waking up on the floor.? He was seen by me in the emergency department, he had a CT scan of the head and neck which was negative and laboratory evaluation and EKG which were? unremarkable.? Labs were consistent with his end-stage renal disease.? Patient was treated yesterday with Dilaudid x2 doses and sent home ER course Presents again today with similar complaints. Head CT and cervical CT negative. Lumbar spine MRI demonstrates [id number] multilevel degenerative spondyloarthropathy with mild spinal stenosis T12-L1. Labs consistent with chronic renal failure. He denies chest pain or aura prior to his fall. Mother states falls have been witnessed; no notable seizure activity Review of Systems Review of Systems: Denies chest pain Denies shortness of breath Denies nausea vomiting diarrhea Denies fever chills PMFSH Social History Alcohol intake: never Smoked in Last 30 Days: No Advance Directives: No Advance Directives Information Provided: No Meds Allergies Allergy/AdvReac Type Severity Reaction Status Date / Time acetaminophen [From Percocet] Allergy Unknown Verified 03/13/23 14:05 codeine Allergy Unknown Verified 03/13/23 14:05 oxycodone [From Percocet] Allergy Unknown Verified 03/13/23 14:05 Active Medications: Current Medications Acetaminophen (Acetaminophen 325 Mg Tablet) 650 mg PO Q6H PRN PRN Reason: Pain, Mild (Pain Scale 1-3) Heparin Sodium (Porcine) (Heparin Sodium,Porcine 5,000 Unit/Ml Vial) 5,000 unit SUBCUT Q8H DENZEL Hydromorphone HCl (Hydromorphone Hcl 0.5 Mg/0.5 Ml Syringe) 0.5 mg SUBCUT Q4H PRN; Protocol PRN Reason: Pain, Severe (Pain Scale 7-10) Pharmacy Consult (Consult Rx Perform Med Rec) 1 each MISCELLANE ONCE PRN PRN Reason: Consult order Sodium Chloride (0.9 % Sodium Chloride Flush 3 Ml Syringe) 3 ml IVFLUSH QSHIFT DENZEL Physical Exam Vital Signs and Narrative: Vital Signs: Last Vital Signs Temp 98.2 F 03/13/23 18:00 Pulse 75 03/13/23 18:00 Resp 16 03/13/23 18:00 BP 186/129 H 03/13/23 18:00 Pulse Ox 97 03/13/23 18:00 O2 Del Method Room Air 03/13/23 18:00 BMI result Body Mass Index 29.1 Const: Other: Awake alert no acute distress Chest: Other: Right in left sided chest Port-A-Cath Resp: Other: Clear to auscultation bilaterally no rales rhonchi or wheezes Cardio: Other: No S4; positive S1-S2; no S3 murmurs rubs or gallops GI: Other: Soft nontender nondistended normoactive bowel sounds. Peritoneal dialysis catheter in place Neuro: Other: Cranial nerves 2-12 grossly intact as tested. Motor is 5/5 all extremities sensation is intact. Cognition is appropriate Extrem: Other: No edema bilaterally Results Labs 03/13/23 15:16 03/13/23 15:16 Labs: Laboratory Results - last 24 hr 03/13/23 03/13/23 03/13/23 15:16 15:16 15:16 MCV 89.6 MCH 29.4 MCHC 32.8 RDW 13.4 Plt Count 124 L MPV 8.5 L Immature Gran % (Auto) 0.4 Neut % (Auto) 70.1 Lymph % (Auto) 17.8 L [place] % (Auto) 9.8 Eos % (Auto) 1.1 Baso % (Auto) 0.8 Lymph # (Auto) 1.0 L [place] # (Auto) 0.5 Eos # (Auto) 0.1 Baso # (Auto) 0.0 Abs Immat Gran (auto) 0.02 Absolute Neuts (auto) 3.7 Absolute Nucleated RBC 0.000 Nucleated RBC % (auto) 0.0 PT 9.8 L INR 0.9 APTT 68.8 H* D Anion Gap 21 H Estim Creat Clear Calc 9.9 Estimated GFR 4 Random Glucose 82 Lactic Acid Calcium 9.5 Total Bilirubin 0.5 AST 31 ALT 21 Alkaline Phosphatase 62 Total Protein 6.0 L Albumin 3.7 Lipase 48 Ethyl Alcohol < 10 03/13/23 15:16 MCV MCH MCHC RDW Plt Count MPV Immature Gran % (Auto) Neut % (Auto) Lymph % (Auto) [place] % (Auto) Eos % (Auto) Baso % (Auto) Lymph # (Auto) [place] # (Auto) Eos # (Auto) Baso # (Auto) Abs Immat Gran (auto) Absolute Neuts (auto) Absolute Nucleated RBC Nucleated RBC % (auto) PT INR APTT Anion Gap Estim Creat Clear Calc Estimated GFR Random Glucose Lactic Acid 0.6 Calcium Total Bilirubin AST ALT Alkaline Phosphatase Total Protein Albumin Lipase Ethyl Alcohol Imaging Radiologist's Impressions: Impressions Chest X-Ray 03/13/23 14:40 IMPRESSION: No acute disease within the chest. No significant bony abnormality of the left shoulder identified. No bony abnormality or effusion of the left elbow. Elbow X-Ray 03/13/23 14:40 IMPRESSION: No acute disease within the chest. No significant bony abnormality of the left shoulder identified. No bony abnormality or effusion of the left elbow. Shoulder X-Ray 03/13/23 14:40 IMPRESSION: No acute disease within the chest. No significant bony abnormality of the left shoulder identified. No bony abnormality or effusion of the left elbow. Cervical Spine CT 03/13/23 14:49 IMPRESSION: 1. No acute intracranial pathology. 2. No CT evidence of acute cervical spine fracture or traumatic subluxation Head CT 03/13/23 14:49 IMPRESSION: 1. No acute intracranial pathology. 2. No CT evidence of acute cervical spine fracture or traumatic subluxation Lumbar Spine MRI 03/13/23 16:49 IMPRESSION: Mild to moderate multilevel degenerative spondyloarthropathy of the lumbar spine as described in detail above. Most notably, there is mild spinal canal stenosis at T12-L1. Mild narrowings of the subarticular zones at L3-L4 and L4-L5. Mild neural foraminal stenoses from L2-S1. Assessment and Plan (1) Syncope: Status: Acute (2) Back pain: Status: Acute (3) Bilateral lower extremity pain: Status: Acute (4) End stage chronic kidney disease: Status: Acute Plan 27-year-old male with a history of ADHD, hyperactivity, anemia, anxiety, depression, remote history of drug addiction with IV heroin use disorder-no use in 3 years and marijuana daily use , end-stage renal disease, glomerulonephritis, hematemesis, hypertension, migraines without auras, who presents to the emergency room for 2 consecutive days with complaint of witnessed syncope without seizure activity 1.Syncope -admit to telemetry to rule out dysrhythmias -check 2D echo in a.m. -EEG -neurology consult 2. Back pain/bilateral lower extremity pain -MRI with mild stenosis -pain management 3. End-stage renal disease on HD -renal consult -hemodialysis inpatient Full code Heparin Patient will require 2 nights inpatient stay to evaluate causes for syncope. This cannot be achieved a lesser acute setting Time Spent With Patient Time: Total time managing care of this patient today ____ minutes. Quality Stroke Does the patient have a stroke diagnosis?: No VTE Prior VTE?: No VTE Risk Level:: Medical - moderate - high VTE Device Contraindication: Treatment Not Indicated VTE Drug Contraindication: N/A - Med Ordered
[2023-03-13] MEDS: cloNIDine 0.3 MG PATCH.TDWK TRANSDERMA (19:16)
[2023-03-13] MEDS: Labetalol HCL 100 MG/20 ML VIAL 20 MG IVPUSH (19:17)
--- NOTE | 2023-03-13 19:19 | PHA.MEDREC ---
Pharmacy Consult ? Medication Reconciliation Pharmacy has completed the medication reconciliation. spoke with patient and family member. They had a list. Patient states that he did not take any medications today.
--- NOTE | 2023-03-13 19:42 | PC.NURSE ---
Nurse to nurse report given to Cony. machine operator hop worker to transport to room 452
[2023-03-13 20:00] VITALS: BP 166/114; PULSE 81; RESP 16; TEMP 36.3; O2SAT 98; BMI 29.4
[2023-03-13] MEDS: HYDROmorphone HCl 0.5 MG/0.5 ML SYRINGE SUBCUT (21:26)
[2023-03-13] MEDS: Heparin Sodium,Porcine 5,000 UNIT/ML VIAL 5000 UNIT SUBCUT (21:27)
[2023-03-13] MEDS: 0.9 % Sodium Chloride Flush 3 ML SYRINGE IVFLUSH (21:28)
[2023-03-13] MEDS: ondansetron HCL 4 MG/2 ML VIAL IVPUSH (22:45)
[2023-03-13 23:15] VITALS: BP 178/125; PULSE 70; RESP 18; TEMP 36.2; O2SAT 98
[2023-03-13] MEDS: carvediloL 25 MG TABLET PO (23:19)
[2023-03-13] MEDS: Gabapentin 100 MG CAPSULE 200 MG PO (23:19)
[2023-03-13] MEDS: Sennosides/Docusate Sodium TABLET 2 TAB PO (23:19)
[2023-03-13] MEDS: hydrALAZINE HCl 25 MG TABLET PO (23:19)
[2023-03-14 00:41] LABS: Appearance Urine Clear; Color Urine Yellow; Glucose Urine UA 100 mg/dL (Negative); Leukocyte Esterase Urine Trace (Negative); Nitrite Urine Negative (Negative); PH 8.5 (5.0-9.0); UMIC TRIGGER UACC YES; Urine Blood Trace (Negative); Urine Ketones Negative (Negative); Urine Protein 300 (3+) mg/dL (Neg-Trace)
[2023-03-14 00:49] LABS: Bacteria Urine None Seen (None Seen); Hyaline Casts Urine 0-2 /LPF (0-2); RBC Urine 0-2 /HPF (0-2); Squamous Epithelial Cell Urine 0-2 /HPF (0-2); UACC Culture Trigger YES
[2023-03-14 01:08] LABS: Amphetamine Screen Urine Not Detected (Not Detect); Barbiturates, Urine Not Detected (Not Detect); Benzodiazepines Screen Urine Not Detected (Not Detect); Cannabinoid Screen Urine Not Detected (Not Detect); Cocaine Screen Urine Not Detected (Not Detect); Fentanyl, urine Not Detected (Not Detect); Opiate Screen Urine Not Detected (Not Detect); Phencyclidine Screen Urine Not Detected (Not Detect)
[2023-03-14] MEDS: HYDROmorphone HCl 0.5 MG/0.5 ML SYRINGE SUBCUT ×5 (01:31→18:50)
[2023-03-14] MEDS: ALPRAZolam 0.5 MG TABLET PO ×2 (02:43→20:11)
[2023-03-14 03:19] VITALS: BP 171/110; PULSE 72; RESP 18; TEMP 36.2; O2SAT 96
--- NOTE | 2023-03-14 03:29 | PC.NURSE ---
Notified Dr Santizo around 22:28, pt requesting Zofran, Benadryl and something for sleep. Benadryl and Zofran given around 22:45. Pt declined Melatonin. At 0239, pt requesting Benadryl again. I explained the Dr may not order but did notify Dr Santizo. did not reorder. I gave prn Xanax. Pt sleeping intermittently. C/o back pain and BLE pain-Dilaudid given at 2125 and 130 so far with some effect. See MAR. Bed alarm on for pt safety. Urinal and call navarro within patients reach. BP's remain elevated. MD aware-see MAR. Clonidine patch on right shoulder. Will continue to monitor.
[2023-03-14] MEDS: Heparin Sodium,Porcine 5,000 UNIT/ML VIAL 5000 UNIT SUBCUT ×3 (05:54→20:11)
[2023-03-14] MEDS: Omeprazole 20 MG CAPSULE.DR PO (05:54)
[2023-03-14] MEDS: cloNIDine HCL 0.2 MG TABLET PO (06:03)
--- NOTE | 2023-03-14 07:00 | CA_ITS ---
Transthoracic Echocardiogram Patient (Last, First, Middle): Gary Burns P Gender: Male Date of : 1995 Age: 27 Procedure Date: 03/14/2023 Procedure Type: Transthoracic Echocardiogram Location: [facility] – [place] Height: 182.88 cm Weight: 97.98 kg BSA: 2.20 m2 Heart Rate: bpm BP: 160 / 110 mmHg Finance Vice President: JOSE DANIEL Referring MD: Lemuel Goldstein DO Symptoms: syncope Study Quality: Adequate ECG Rhythm: Sinus Conclusions: - The left ventricular systolic function is normal. The calculated ejection fraction is 60% by biplane method. - No obvious valvular pathology seen on this study. Findings Left Ventricle Normal left ventricular cavity size. There is mildly increased left ventricular wall thickness. The left ventricular systolic function is normal. The calculated ejection fraction is 60% by biplane method. There is no evidence of regional wall motion abnormalities. Diastolic function is normal for age. Right Ventricle Normal right ventricular cavity size. There is low normal right ventricular systolic function. Atria Both atria are normal in size. Aortic Valve There is a normal trileaflet aortic valve. There is no aortic valve stenosis. There is no aortic valve regurgitation. Mitral Valve The mitral valve appears normal. There is trace mitral valve regurgitation. There is no mitral valve stenosis. Pulmonic Valve The pulmonic valve is likely normal. Tricuspid Valve Normal tricuspid valve structure. There is trace tricuspid valve regurgitation. There is no evidence of pulmonary hypertension. Great Vessels The asc aorta is normal in size. Venous The inferior vena cava is normal in size and collapses greater than 50% with inspiration. Pericardium/Pleural Prominent epicardial adipose tissue noted. There is no evidence of pericardial effusion. Prior Study Comparison No prior study available for comparison. Recommendations, Care & Conclusions No obvious valvular pathology seen on this study. Measurements 2D Linear Measurements IVSd: 1.22 0.6-0.9/0.6-1.0 cm LVIDd: 4.68 3.9-5.3/4.2-5.9 cm LVIDd Index: 2.13 2.4-3.2/2.2-3.1 cm/m2 LVIDs: 2.92 2.0-3.6 cm LVPWd: 1.28 0.7-1.1 cm LA Diam: 3.00 2.7-3.8/3.0-4.0 cm LAIDs Index: 1.36 1.5-2.3 cm/m2 LV Mass: 278.35 67-162/88-224 g LV Mass Index: 126.52 43-95/49-115 g/m2 LVOT Diam: 2.20 3.0+(-)1.3 cm 2D Systolic Function EF 4C: 57.90 >55% EF 2C: 62.90 >55% EF BiP: 60.30 >55% Mitral Valve MV Pk E: 0.57 MV PK A: 0.48 MV Decel Time: 203.00 E/A: 1.20 E'Lateral: 9.14 E'Medial: 5.87 E/E' Med: 9.80 E/E' Lat: 6.30 PHT: 59.00 MVA PHT: 3.73 Decel Patrick: 2.83 Aortic Valve AoV Pk Champ: 1.18 AoV Mn Champ: 0.91 AoV VTI: 0.24 AoV Pk Grad: 6.00 Aov Mn Grad: 4.00 DANILO Cont.VTI: 3.11 LVOT LVOT Pk Champ: 1.01 LVOT Mn Champ: 0.74 LVOT VTI: 0.19 LVOT Pk Grad: 4.00 LVOT Mn Grad: 2.00 LVOT Diam: 2.20 LVOT Area: 3.80 Diastolic Function MV Pk E: 0.57 MV Pk A: 0.48 E/A: 1.20 E'Medial: 5.87 E/E' Med: 9.80 E' Laterial: 9.14 E/E' Lat: 6.30 Right Ventricle TAPSE (mm): 18.00 TVS' Champ: 10.10 Tricuspid Valve TR Pk Champ: 1.97 TR Pk Grad: 16.00 RA Press: 3.00 RVSP: 19.00 Great Vessels Aorta Sinus of Valsalva: 3.87 2.0-3.5 cm Ao Asc: 3.30 2.1-3.4 cm Updated in Other Vendor System with Status of Final Danilo Oh MD electronically signed on 03/15/2023 1:03:10 PM with status of Final
[2023-03-14 07:18] VITALS: BP 160/110; PULSE 70; RESP 20; TEMP 36.6; O2SAT 94
--- NOTE | 2023-03-14 09:09 | MHC.CM.PN ---
CM met with Patient at bedside and addressed IMM with him, providing him with the original and placing a copy on the chart. Patient lives in a house with his Mother/HCP, Step-Father, Sister and 18 year old Nephew and he required no services [facility]LETT[facility]. Patient uses a cane at times. Patient attends HD @ [facility] M/W/. Home/resume said services is the goal and CM has initiated and will follow for dc planning. Patient is corazon schwartz and his PCP is Dr. Pillo Trejo.
[2023-03-14] MEDS: Acetaminophen 325 MG TABLET 650 MG PO ×2 (09:29→20:10)
[2023-03-14] MEDS: Losartan Potassium 50 MG TABLET 100 MG PO (09:29)
[2023-03-14] MEDS: Sennosides/Docusate Sodium TABLET 2 TAB PO ×2 (09:30→20:11)
[2023-03-14] MEDS: Gabapentin 100 MG CAPSULE 200 MG PO ×2 (09:30→20:11)
[2023-03-14] MEDS: NIFEdipine ER 60 MG TAB.ER.24 PO (09:30)
[2023-03-14] MEDS: hydrALAZINE HCl 25 MG TABLET PO (09:30)
[2023-03-14] MEDS: 0.9 % Sodium Chloride Flush 3 ML SYRINGE IVFLUSH ×2 (09:30→14:36)
[2023-03-14] MEDS: Sevelamer Carbonate Tablet 800 MG TABLET 2400 MG PO ×2 (09:30→16:57)
[2023-03-14] MEDS: carvediloL 25 MG TABLET PO ×2 (09:30→20:11)
[2023-03-14] MEDS: Sertraline HCL 50 MG TABLET PO (09:30)
[2023-03-14] MEDS: Atorvastatin Calcium 20 MG TABLET PO (09:30)
--- NOTE | 2023-03-14 11:00 | P.CNNE_ITS ---
History of Present Illness Data of Consult Service Date: 03/14/23 Primary Care Provider: Pillo Trejo, [facility]- HPI Reason for consult: Syncopal 27-year-old male with a history of ADHD, hyperactivity, anemia, anxiety, depression, remote history of drug addiction with IV heroin use disorder-no use in 3 years and marijuana daily use , end-stage renal disease, glomerulonephritis, hematemesis, hypertension, migraines without auras, osteomyelitis of the cervical spine, sleep apne, and lupus who I was asked to se e for syncope. He said that last few days he has passed out few times without any obvious trigger or reason or warning. He was not aware that there was any convulsion. He woke up on the floor. There was no cardiac symptoms Review of Systems Review of Systems: He has complain of back pain PMFSH Social History Social History Household Members: Family Household Members Other:: mom, step dad, sister and nephew Housing: House Do you presently have visiting nurse or other home services: No Alcohol intake: never Patient Tobacco Use Status: Never used Tobacco Substance Use Type: Marijuana service: No Meds Allergies Allergy/AdvReac Type Severity Reaction Status Date / Time acetaminophen [From Percocet] Allergy Unknown Verified 03/13/23 14:05 codeine Allergy Unknown Verified 03/13/23 14:05 oxycodone [From Percocet] Allergy Unknown Verified 03/13/23 14:05 Active Medications: Current Medications Acetaminophen (Acetaminophen 325 Mg Tablet) 650 mg PO Q6H PRN PRN Reason: Pain, Mild (Pain Scale 1-3) Last Admin: 03/14/23 09:29 Dose: 650 mg Alprazolam (Alprazolam 0.5 Mg Tablet) 0.5 mg PO BID PRN PRN Reason: anxiety Last Admin: 03/14/23 02:43 Dose: 0.5 mg Atorvastatin Calcium (Atorvastatin Calcium 20 Mg Tablet) 20 mg PO DAILY [facility] Last Admin: 03/14/23 09:30 Dose: 20 mg Calcitriol (Calcitriol 0.25 Mcg Capsule) 0.5 mcg PO MoWeFr@1400 [facility] Carvedilol (Carvedilol 25 Mg Tablet) 25 mg PO BID [facility]; Protocol Last Admin: 03/14/23 09:30 Dose: 25 mg Cinacalcet (Cinacalcet Hcl 30 Mg Tablet) 90 mg PO MoWeFr@0900 [facility] Clonidine (Clonidine 0.3 Mg Patch.Tdwk) 0.3 mg TRANSDERMA Q168H [facility]; Protocol Clonidine HCl (Clonidine Hcl 0.2 Mg Tablet) 0.2 mg PO DAILY PRN; Protocol PRN Reason: Blood Pressure Last Admin: 03/14/23 06:03 Dose: 0.2 mg Gabapentin (Gabapentin 100 Mg Capsule) 200 mg PO BID [facility] Last Admin: 03/14/23 09:30 Dose: 200 mg Heparin Sodium (Porcine) (Heparin Sodium,Porcine 5,000 Unit/Ml Vial) 5,000 unit SUBCUT Q8H [facility] Last Admin: 03/14/23 05:54 Dose: 5,000 unit Hydralazine HCl (Hydralazine Hcl 25 Mg Tablet) 25 mg PO TID [facility]; Protocol Last Admin: 03/14/23 09:30 Dose: 25 mg Hydromorphone HCl (Hydromorphone Hcl 0.5 Mg/0.5 Ml Syringe) 0.5 mg SUBCUT Q4H PRN; Protocol PRN Reason: Pain, Severe (Pain Scale 7-10) Last Admin: 03/14/23 10:44 Dose: 0.5 mg Lactulose (Lactulose 20 Gm/30 Ml Solution) 10 gm PO DAILY PRN PRN Reason: Constipation Losartan Potassium (Losartan Potassium 50 Mg Tablet) 100 mg PO DAILY [facility]; Protocol Last Admin: 03/14/23 09:29 Dose: 100 mg Melatonin (Melatonin 3 Mg Tablet) 6 mg PO BEDTIME PRN PRN Reason: insomnia Nifedipine (Nifedipine Er 60 Mg Tab.Er.24) 60 mg PO DAILY [facility] Last Admin: 03/14/23 09:30 Dose: 60 mg Nitroglycerin (Nitroglycerin 0.4 Mg Tab.Subl) 0.4 mg SUBLINGUAL Q5M PRN PRN Reason: Chest Pain Omeprazole (Omeprazole 20 Mg Capsule.Dr) 20 mg PO DAILY@0630 [facility] Last Admin: 03/14/23 05:54 Dose: 20 mg Ondansetron HCl (Ondansetron Hcl 4 Mg/2 Ml Vial) 4 mg IVPUSH Q6H PRN PRN Reason: Nausea and Vomiting Last Admin: 03/13/23 22:45 Dose: 4 mg Pharmacy Consult (Consult Rx Perform Med Rec) 1 each MISCELLANE ONCE PRN PRN Reason: Consult order Polyethylene Glycol (Polyethylene Glycol 3350 17 Gm Powd.Pack) 17 gm PO DAILY PRN PRN Reason: Constipation Senna/Docusate Sodium (Sennosides/Docusate Sodium Tablet) 2 tab PO BID [facility] Last Admin: 03/14/23 09:30 Dose: 2 tab Sertraline HCl (Sertraline Hcl 50 Mg Tablet) 50 mg PO DAILY [facility] Last Admin: 03/14/23 09:30 Dose: 50 mg Sevelamer Carbonate (Sevelamer Carbonate Tablet 800 Mg Tablet) 2,400 mg PO TIDWM [facility] Last Admin: 03/14/23 09:30 Dose: 2,400 mg Sodium Chloride (0.9 % Sodium Chloride Flush 3 Ml Syringe) 3 ml IVFLUSH QSHIFT [facility] Last Admin: 03/14/23 09:30 Dose: 3 ml Home Medications Medication Instructions Recorded Confirmed Last Taken Type acetaminophen 500 mg tablet 1,000 mg PO TID PRN pain 03/13/23 03/13/23 Unknown History alprazolam 0.5 mg tablet 0.5 mg PO BID PRN anxiety 03/13/23 03/13/23 Unknown History atorvastatin 20 mg tablet 20 mg PO DAILY 03/13/23 03/13/23 Unknown History calcitriol 0.5 mcg capsule 0.5 mcg PO MOWEFR 03/13/23 03/13/23 Unknown History calcium carbonate 500 mg calcium 500 mg PO DAILY 03/13/23 03/13/23 Unknown History (1,250 mg) chewable tablet carvedilol 25 mg tablet 25 mg PO BID 03/13/23 03/13/23 Unknown History cinacalcet 90 mg tablet 90 mg PO MOWEFR 03/13/23 03/13/23 Unknown History clonidine 0.3 mg/24 hr weekly 1 patch topical QWEEK 03/13/23 03/13/23 Unknown History transdermal patch clonidine HCl 0.2 mg tablet 0.2 mg PO DAILY PRN Blood Pressure 03/13/23 03/13/23 Unknown History ergocalciferol (vitamin D2) 1,250 1,250 mcg PO FR 03/13/23 03/13/23 Unknown History mcg (50,000 unit) capsule (Vitamin D2) gabapentin 100 mg capsule 200 mg PO BID 03/13/23 03/13/23 Unknown History hydralazine 25 mg tablet 25 mg PO TID 03/13/23 03/13/23 Unknown History hydrocortisone 0.5 % topical cream 1 appl topical DAILY PRN Rash 03/13/23 03/13/23 Unknown History ketoconazole 2 % topical cream 1 appl topical DAILY PRN Rash 03/13/23 03/13/23 Unknown History lactulose 10 gram/15 mL oral 15 ml PO DAILY PRN Constipation 03/13/23 03/13/23 Unknown History solution losartan 100 mg tablet 100 mg PO DAILY 03/13/23 03/13/23 Unknown History nifedipine 60 mg tablet,extended 60 mg PO DAILY 03/13/23 03/13/23 Unknown History release nitroglycerin 0.4 mg sublingual 0.4 mg sublingual Q5M PRN Chest 03/13/23 03/13/23 Unknown History tablet Pain ondansetron HCl 4 mg tablet 4 mg PO Q8H PRN Nausea 03/13/23 03/13/23 Unknown History pantoprazole 40 mg tablet,delayed 40 mg PO DAILY 03/13/23 03/13/23 Unknown History release polyethylene glycol 3350 17 17 g PO DAILY PRN Constipation 03/13/23 03/13/23 Unknown History gram/dose oral powder sennosides 8.6 mg-docusate sodium 2 tab PO BID 03/13/23 03/13/23 Unknown History 50 mg tablet (Senna Plus) sertraline 50 mg tablet 50 mg PO DAILY 03/13/23 03/13/23 Unknown History sevelamer carbonate 800 mg tablet 2,400 mg PO TIDWMEAL 03/13/23 03/13/23 Unknown History Physical Exam Vital Signs: Vital Signs: Last Vital Signs Temp 97.9 F 03/14/23 07:18 Pulse 70 03/14/23 07:18 Resp 20 03/14/23 07:18 BP 160/110 H 03/14/23 07:18 Pulse Ox 94 03/14/23 07:18 O2 Del Method Room Air 03/14/23 07:18 BMI result Body Mass Index 29.4 Neuro: Other: He is alert and awake with normal spontaneity of speech fluency comprehension and affect. Face is symmetrical. Visual soler are full. Deep tendon reflexes are on the brisker side with equivocal plantars. [id number] testing is okay. Speech is normal. Results Labs 03/13/23 15:16 03/13/23 15:16 Labs: Short CBC 03/13/23 Range/Units 15:16 WBC 5.3 (4.8-10.8) X10*3/uL Hgb 10.8 L (14.0-18.0) g/dl Hct 32.9 L (42.0-52.0) % Plt Count 124 L (160-400) X10*3/uL BMP 03/13/23 15:16 Sodium 140 Potassium 4.8 Chloride 100 Carbon Dioxide 24 BUN 24 H Creatinine 13.40 H* Calcium 9.5 Liver Function 03/13/23 Range/Units 15:16 Total Bilirubin 0.5 (0.0-1.0) mg/dL AST 31 (5-37) U/L ALT 21 (0-40) U/L Alkaline Phosphatase 62 (39-117) U/L Albumin 3.7 (3.5-5.0) g/dL Urine 03/14/23 Range/Units 00:12 Urine Color Yellow Urine Appearance Clear Urine pH 8.5 (5.0-9.0) Ur Specific [place] 1.010 (1.005-1.025) Urine Protein 300 (3+) H (Neg-Trace) mg/dL Urine Glucose (UA) 100 H (Negative) mg/dL Head CT revealed a right lower frontal hyperdensity probably of either a venous angioma or cavernous angioma. Assessment and Plan (1) Syncope: Status: Acute 27 years old man with complex medical history including uncontrolled hypertension, end-stage renal disease, and history of drug abuse. List of problems also included diagnosis of lupus. I was asked to see him for syncopal episode. He said that during last few days he has passed out few times. There was no warning and no witnessing of any convulsion. His examination revealed relative hyper reflexia, which is nonspecific. Head CT revealed her lower right frontal lesion, either a venous angioma or cavernous angioma. This type of lesions are potentially epileptogenic. If possible, I recommend obtaining an EEG and also an MRI of brain at least without contrast, but ideally with contrast if possible. For now he should avoid driving and activities that could put his life in danger in case he would pass out. Nephrology consultation can provide guidance for blood pressure control and management of renal disease. Time Spent With Patient Time: Total time managing care of this patient today ____ minutes. Procedures Date of Service Date of Service: 03/14/23
--- NOTE | 2023-03-14 12:19 | PM.CNNEP ---
History of Present Illness Reason for Consult Consult date: 03/14/23 Chief Complaint Chief complaint: Syncope History of Present Illness Narrative: 27-year-old male with end-stage renal disease( MWF ) who presented to the emergency department for evaluation syncopal episode , lower back pain and pain in his legs from the knees down to his ankles bilaterally. He was recently hospitalized at [facility] from 03/08/2023 for until 03/11/2023 for abdominal pain and was ruled out for peritonitis (patient was getting peritoneal dialysis and is now getting hemodialysis through a left chest dialysis catheter).? Yesterday he was walking into his kitchen, he had a syncopal episode and fell forward.? He had no warning symptoms to the syncopal episode and remembers waking up on the floor.? CT scan of the head and neck which was negative and laboratory evaluation and EKG which were? unremarkable.?He did not have HD yesterday. He was admitted for further management. Nephrology has been consulted to assist in his clinical care during his current hospital stay. Review of Systems Review of Systems Yes all other systems are reviewed and are [facility] Social History Social History Household Members: Family Household Members Other:: mom, step dad, sister and nephew Housing: House Do you presently have visiting nurse or other home services: No Alcohol intake: never Patient Tobacco Use Status: Never used Tobacco Substance Use Type: Marijuana service: No Meds Allergies Allergy/AdvReac Type Severity Reaction Status Date / Time acetaminophen [From Percocet] Allergy Unknown Verified 03/13/23 14:05 codeine Allergy Unknown Verified 03/13/23 14:05 oxycodone [From Percocet] Allergy Unknown Verified 03/13/23 14:05 Active Medications: Current Medications Acetaminophen (Acetaminophen 325 Mg Tablet) 650 mg PO Q6H PRN PRN Reason: Pain, Mild (Pain Scale 1-3) Last Admin: 03/14/23 09:29 Dose: 650 mg Alprazolam (Alprazolam 0.5 Mg Tablet) 0.5 mg PO BID PRN PRN Reason: anxiety Last Admin: 03/14/23 02:43 Dose: 0.5 mg Atorvastatin Calcium (Atorvastatin Calcium 20 Mg Tablet) 20 mg PO DAILY [facility] Last Admin: 03/14/23 09:30 Dose: 20 mg Calcitriol (Calcitriol 0.25 Mcg Capsule) 0.5 mcg PO MoWeFr@1400 [facility] Carvedilol (Carvedilol 25 Mg Tablet) 25 mg PO BID [facility]; Protocol Last Admin: 03/14/23 09:30 Dose: 25 mg Cinacalcet (Cinacalcet Hcl 30 Mg Tablet) 90 mg PO MoWeFr@0900 [facility] Clonidine (Clonidine 0.3 Mg Patch.Tdwk) 0.3 mg TRANSDERMA Q168H [facility]; Protocol Clonidine HCl (Clonidine Hcl 0.2 Mg Tablet) 0.2 mg PO DAILY PRN; Protocol PRN Reason: Blood Pressure Last Admin: 03/14/23 06:03 Dose: 0.2 mg Gabapentin (Gabapentin 100 Mg Capsule) 200 mg PO BID [facility] Last Admin: 03/14/23 09:30 Dose: 200 mg Heparin Sodium (Porcine) (Heparin Sodium,Porcine 5,000 Unit/Ml Vial) 5,000 unit SUBCUT Q8H [facility] Last Admin: 03/14/23 05:54 Dose: 5,000 unit Hydralazine HCl (Hydralazine Hcl 25 Mg Tablet) 25 mg PO TID [facility]; Protocol Last Admin: 03/14/23 09:30 Dose: 25 mg Hydromorphone HCl (Hydromorphone Hcl 0.5 Mg/0.5 Ml Syringe) 0.5 mg SUBCUT Q4H PRN; Protocol PRN Reason: Pain, Severe (Pain Scale 7-10) Last Admin: 03/14/23 10:44 Dose: 0.5 mg Lactulose (Lactulose 20 Gm/30 Ml Solution) 10 gm PO DAILY PRN PRN Reason: Constipation Losartan Potassium (Losartan Potassium 50 Mg Tablet) 100 mg PO DAILY [facility]; Protocol Last Admin: 03/14/23 09:29 Dose: 100 mg Melatonin (Melatonin 3 Mg Tablet) 6 mg PO BEDTIME PRN PRN Reason: insomnia Nifedipine (Nifedipine Er 60 Mg Tab.Er.24) 60 mg PO DAILY [facility] Last Admin: 03/14/23 09:30 Dose: 60 mg Nitroglycerin (Nitroglycerin 0.4 Mg Tab.Subl) 0.4 mg SUBLINGUAL Q5M PRN PRN Reason: Chest Pain Omeprazole (Omeprazole 20 Mg Capsule.Dr) 20 mg PO DAILY@0630 [facility] Last Admin: 03/14/23 05:54 Dose: 20 mg Ondansetron HCl (Ondansetron Hcl 4 Mg/2 Ml Vial) 4 mg IVPUSH Q6H PRN PRN Reason: Nausea and Vomiting Last Admin: 03/13/23 22:45 Dose: 4 mg Pharmacy Consult (Consult Rx Perform Med Rec) 1 each MISCELLANE ONCE PRN PRN Reason: Consult order Polyethylene Glycol (Polyethylene Glycol 3350 17 Gm Powd.Pack) 17 gm PO DAILY PRN PRN Reason: Constipation Senna/Docusate Sodium (Sennosides/Docusate Sodium Tablet) 2 tab PO BID [facility] Last Admin: 03/14/23 09:30 Dose: 2 tab Sertraline HCl (Sertraline Hcl 50 Mg Tablet) 50 mg PO DAILY [facility] Last Admin: 03/14/23 09:30 Dose: 50 mg Sevelamer Carbonate (Sevelamer Carbonate Tablet 800 Mg Tablet) 2,400 mg PO TIDWM [facility] Last Admin: 03/14/23 09:30 Dose: 2,400 mg Sodium Chloride (0.9 % Sodium Chloride Flush 3 Ml Syringe) 3 ml IVFLUSH QSHIFT [facility] Last Admin: 03/14/23 09:30 Dose: 3 ml Home Medications Medication Instructions Recorded Confirmed Last Taken Type acetaminophen 500 mg tablet 1,000 mg PO TID PRN pain 03/13/23 03/13/23 Unknown History alprazolam 0.5 mg tablet 0.5 mg PO BID PRN anxiety 03/13/23 03/13/23 Unknown History atorvastatin 20 mg tablet 20 mg PO DAILY 03/13/23 03/13/23 Unknown History calcitriol 0.5 mcg capsule 0.5 mcg PO MOWEFR 03/13/23 03/13/23 Unknown History calcium carbonate 500 mg calcium 500 mg PO DAILY 03/13/23 03/13/23 Unknown History (1,250 mg) chewable tablet carvedilol 25 mg tablet 25 mg PO BID 03/13/23 03/13/23 Unknown History cinacalcet 90 mg tablet 90 mg PO MOWEFR 03/13/23 03/13/23 Unknown History clonidine 0.3 mg/24 hr weekly 1 patch topical QWEEK 03/13/23 03/13/23 Unknown History transdermal patch clonidine HCl 0.2 mg tablet 0.2 mg PO DAILY PRN Blood Pressure 03/13/23 03/13/23 Unknown History ergocalciferol (vitamin D2) 1,250 1,250 mcg PO FR 03/13/23 03/13/23 Unknown History mcg (50,000 unit) capsule (Vitamin D2) gabapentin 100 mg capsule 200 mg PO BID 03/13/23 03/13/23 Unknown History hydralazine 25 mg tablet 25 mg PO TID 03/13/23 03/13/23 Unknown History hydrocortisone 0.5 % topical cream 1 appl topical DAILY PRN Rash 03/13/23 03/13/23 Unknown History ketoconazole 2 % topical cream 1 appl topical DAILY PRN Rash 03/13/23 03/13/23 Unknown History lactulose 10 gram/15 mL oral 15 ml PO DAILY PRN Constipation 03/13/23 03/13/23 Unknown History solution losartan 100 mg tablet 100 mg PO DAILY 03/13/23 03/13/23 Unknown History nifedipine 60 mg tablet,extended 60 mg PO DAILY 03/13/23 03/13/23 Unknown History release nitroglycerin 0.4 mg sublingual 0.4 mg sublingual Q5M PRN Chest 03/13/23 03/13/23 Unknown History tablet Pain ondansetron HCl 4 mg tablet 4 mg PO Q8H PRN Nausea 03/13/23 03/13/23 Unknown History pantoprazole 40 mg tablet,delayed 40 mg PO DAILY 03/13/23 03/13/23 Unknown History release polyethylene glycol 3350 17 17 g PO DAILY PRN Constipation 03/13/23 03/13/23 Unknown History gram/dose oral powder sennosides 8.6 mg-docusate sodium 2 tab PO BID 03/13/23 03/13/23 Unknown History 50 mg tablet (Senna Plus) sertraline 50 mg tablet 50 mg PO DAILY 03/13/23 03/13/23 Unknown History sevelamer carbonate 800 mg tablet 2,400 mg PO TIDWMEAL 03/13/23 03/13/23 Unknown History Physical Exam Vital Signs: Last Vital Signs Temp 97.9 F 03/14/23 07:18 Pulse 70 03/14/23 07:18 Resp 20 03/14/23 07:18 BP 160/110 H 03/14/23 07:18 Pulse Ox 94 03/14/23 07:18 O2 Del Method Room Air 03/14/23 07:18 BMI result Body Mass Index 29.4 Const General: no acute distress Orientation/consciousness: patient oriented x3 Eyes EOM: EOMs intact bilaterally Neck Neck: Yes supple Chest Other: Permcath in place Resp Auscultation: diminished lung sounds Cardio Rate: regular rate GI Other: Has a PD catheter in place Palpation (GI): Soft to palpation Skin General skin exam: no rashes or lesions noted Neuro General: patient oriented x3 and moves all extremities Results Lab Results 03/13/23 15:16 03/13/23 15:16 Lab results: Chemistry 03/13/23 15:16 Sodium 140 Potassium 4.8 Carbon Dioxide 24 BUN 24 H Creatinine 13.40 H* Calcium 9.5 Hematology 03/13/23 15:16 WBC 5.3 Hgb 10.8 L Plt Count 124 L Urinalysis 03/14/23 00:12 Urine Color Yellow Urine Appearance Clear Urine pH 8.5 Ur Specific [place] 1.010 Urine Protein 300 (3+) H Urine Glucose (UA) 100 H Urine Ketones Negative Urine Blood Trace H Urine Nitrite Negative Ur Leukocyte Esterase Trace H Urine RBC 0-2 Urine WBC 11-20 H Ur Squamous Epith Cells 0-2 Hyaline Casts 0-2 Assessment and Plan (1) ESRD on dialysis: Status: Acute Time Spent With Patient Time: Typically gets HD on MWF ( [facility]); Has not had HD yesterday Shall dialyze today & put him back on HD schedule for tomorrow( outpt schedule) Renal Diet; Phos binders with meals; D/C Hydralazine Needs Surgery to see and D/C PD catheter Dr Bauman can see as a consult for AVG as outpt All questions answered; Seen him on HD as well Procedures Date of Service Date of Service: 03/14/23
[2023-03-14] MEDS: ondansetron HCL 4 MG/2 ML VIAL IVPUSH ×2 (14:36→20:11)
--- NOTE | 2023-03-14 14:57 | HO.PM.IMPN ---
Subjective Subjective Date of Service: 03/14/23 Interval History: No acute events overnight. Examined in dialysis no acute issues Review of Systems Denies chest pain Denies shortness of breath Denies nausea vomiting diarrhea Denies fever chills Physical Exam Vital Signs: Vital Signs: Last Vital Signs Temp 97.9 F 03/14/23 07:18 Pulse 70 03/14/23 07:18 Resp 20 03/14/23 07:18 BP 160/110 H 03/14/23 07:18 Pulse Ox 94 03/14/23 07:18 O2 Del Method Room Air 03/14/23 07:18 BMI result Body Mass Index 29.4 Const: Other: Awake alert no acute distress Chest: Other: Right in left sided chest Port-A-Cath Resp: Other: Clear to auscultation bilaterally no rales rhonchi or wheezes Cardio: Other: No S4; positive S1-S2; no S3 murmurs rubs or gallops GI: Other: Soft nontender nondistended normoactive bowel sounds. Peritoneal dialysis catheter in place Neuro: Other: Cranial nerves 2-12 grossly intact as tested. Motor is 5/5 all extremities sensation is intact. Cognition is appropriate Extrem: Other: No edema bilaterally Objective Data Active Medications Acetaminophen (Acetaminophen 325 Mg Tablet) 650 mg PO Q6H PRN PRN Reason: Pain, Mild (Pain Scale 1-3) Last Admin: 03/14/23 09:29 Dose: 650 mg Documented By: MARGARET Alprazolam (Alprazolam 0.5 Mg Tablet) 0.5 mg PO BID PRN PRN Reason: anxiety Last Admin: 03/14/23 02:43 Dose: 0.5 mg Documented By: GARRETT Atorvastatin Calcium (Atorvastatin Calcium 20 Mg Tablet) 20 mg PO DAILY [facility] Last Admin: 03/14/23 09:30 Dose: 20 mg Documented By: MARGARET Calcitriol (Calcitriol 0.25 Mcg Capsule) 0.5 mcg PO MoWeFr@1400 [facility] Carvedilol (Carvedilol 25 Mg Tablet) 25 mg PO BID [facility]; Protocol Last Admin: 03/14/23 09:30 Dose: 25 mg Documented By: MARGARET Cinacalcet (Cinacalcet Hcl 30 Mg Tablet) 90 mg PO MoWeFr@0900 [facility] Clonidine (Clonidine 0.3 Mg Patch.Tdwk) 0.3 mg TRANSDERMA Q168H [facility]; Protocol Clonidine HCl (Clonidine Hcl 0.2 Mg Tablet) 0.2 mg PO DAILY PRN; Protocol PRN Reason: Blood Pressure Last Admin: 03/14/23 06:03 Dose: 0.2 mg Documented By: GARRETT Gabapentin (Gabapentin 100 Mg Capsule) 200 mg PO BID [facility] Last Admin: 03/14/23 09:30 Dose: 200 mg Documented By: MARGARET Heparin Sodium (Porcine) (Heparin Sodium,Porcine 5,000 Unit/Ml Vial) 5,000 unit SUBCUT Q8H [facility] Last Admin: 03/14/23 05:54 Dose: 5,000 unit Documented By: GARRETT Heparin Sodium (Porcine) (Heparin Sodium,Porcine 5,000 Unit/Ml Vial) 5,000 unit INTRACATH MOWEFR@1645 [facility] Hydromorphone HCl (Hydromorphone Hcl 0.5 Mg/0.5 Ml Syringe) 0.5 mg SUBCUT Q4H PRN; Protocol PRN Reason: Pain, Severe (Pain Scale 7-10) Last Admin: 03/14/23 14:36 Dose: 0.5 mg Documented By: MARGARET Lactulose (Lactulose 20 Gm/30 Ml Solution) 10 gm PO DAILY PRN PRN Reason: Constipation Losartan Potassium (Losartan Potassium 50 Mg Tablet) 100 mg PO DAILY [facility]; Protocol Last Admin: 03/14/23 09:29 Dose: 100 mg Documented By: MARGARET Melatonin (Melatonin 3 Mg Tablet) 6 mg PO BEDTIME PRN PRN Reason: insomnia Nifedipine (Nifedipine Er 60 Mg Tab.Er.24) 60 mg PO DAILY [facility] Last Admin: 03/14/23 09:30 Dose: 60 mg Documented By: MARGARET Nitroglycerin (Nitroglycerin 0.4 Mg Tab.Subl) 0.4 mg SUBLINGUAL Q5M PRN PRN Reason: Chest Pain Omeprazole (Omeprazole 20 Mg Capsule.) 20 mg PO DAILY@0630 [facility] Last Admin: 03/14/23 05:54 Dose: 20 mg Documented By: GARRETT Ondansetron HCl (Ondansetron Hcl 4 Mg/2 Ml Vial) 4 mg IVPUSH Q6H PRN PRN Reason: Nausea and Vomiting Last Admin: 03/14/23 14:36 Dose: 4 mg Documented By: MARGARET Pharmacy Consult (Consult Rx Perform Med Rec) 1 each MISCELLANE ONCE PRN PRN Reason: Consult order Polyethylene Glycol (Polyethylene Glycol 3350 17 Gm Powd.Pack) 17 gm PO DAILY PRN PRN Reason: Constipation Senna/Docusate Sodium (Sennosides/Docusate Sodium Tablet) 2 tab PO BID [facility] Last Admin: 03/14/23 09:30 Dose: 2 tab Documented By: MARGARET Sertraline HCl (Sertraline Hcl 50 Mg Tablet) 50 mg PO DAILY [facility] Last Admin: 03/14/23 09:30 Dose: 50 mg Documented By: MARGARET Sevelamer Carbonate (Sevelamer Carbonate Tablet 800 Mg Tablet) 2,400 mg PO TIDWM [facility] Last Admin: 03/14/23 09:30 Dose: 2,400 mg Documented By: MARGARET Sodium Chloride (0.9 % Sodium Chloride Flush 3 Ml Syringe) 3 ml IVFLUSH QSHIFT [facility] Last Admin: 03/14/23 14:36 Dose: 3 ml Documented By: MARGARET Labs 03/13/23 15:16 03/13/23 15:16 Labs: Laboratory Results - last 24 hr 03/13/23 03/13/23 03/13/23 15:16 15:16 15:16 MCV 89.6 MCH 29.4 MCHC 32.8 RDW 13.4 Plt Count 124 L MPV 8.5 L Immature Gran % (Auto) 0.4 Neut % (Auto) 70.1 Lymph % (Auto) 17.8 L [place] % (Auto) 9.8 Eos % (Auto) 1.1 Baso % (Auto) 0.8 Lymph # (Auto) 1.0 L [place] # (Auto) 0.5 Eos # (Auto) 0.1 Baso # (Auto) 0.0 Abs Immat Gran (auto) 0.02 Absolute Neuts (auto) 3.7 Absolute Nucleated RBC 0.000 Nucleated RBC % (auto) 0.0 PT 9.8 L INR 0.9 APTT 68.8 H* D Anion Gap 21 H Estim Creat Clear Calc 9.9 Estimated GFR 4 Random Glucose 82 Lactic Acid Calcium 9.5 Total Bilirubin 0.5 AST 31 ALT 21 Alkaline Phosphatase 62 Total Protein 6.0 L Albumin 3.7 Lipase 48 Urine Color Urine Appearance Urine pH Ur Specific [place] Urine Protein Urine Glucose (UA) Urine Ketones Urine Blood Urine Nitrite Ur Leukocyte Esterase Urine RBC Urine WBC Ur Squamous Epith Cells Urine Bacteria Hyaline Casts Urine Opiates Screen Urine Fentanyl Screen Ur Barbiturates Screen Ur Phencyclidine Scrn Ur Amphetamines Screen U Benzodiazepines Scrn Urine Cocaine Screen U Marijuana (THC) Screen Ethyl Alcohol < 10 03/13/23 03/14/23 03/14/23 15:16 00:12 00:12 MCV MCH MCHC RDW Plt Count MPV Immature Gran % (Auto) Neut % (Auto) Lymph % (Auto) [place] % (Auto) Eos % (Auto) Baso % (Auto) Lymph # (Auto) [place] # (Auto) Eos # (Auto) Baso # (Auto) Abs Immat Gran (auto) Absolute Neuts (auto) Absolute Nucleated RBC Nucleated RBC % (auto) PT INR APTT Anion Gap Estim Creat Clear Calc Estimated GFR Random Glucose Lactic Acid 0.6 Calcium Total Bilirubin AST ALT Alkaline Phosphatase Total Protein Albumin Lipase Urine Color Yellow Urine Appearance Clear Urine pH 8.5 Ur Specific [place] 1.010 Urine Protein 300 (3+) H Urine Glucose (UA) 100 H Urine Ketones Negative Urine Blood Trace H Urine Nitrite Negative Ur Leukocyte Esterase Trace H Urine RBC 0-2 Urine WBC 11-20 H Ur Squamous Epith Cells 0-2 Urine Bacteria None Seen Hyaline Casts 0-2 Urine Opiates Screen Not Detected Urine Fentanyl Screen Not Detected Ur Barbiturates Screen Not Detected Ur Phencyclidine Scrn Not Detected Ur Amphetamines Screen Not Detected U Benzodiazepines Scrn Not Detected Urine Cocaine Screen Not Detected U Marijuana (THC) Screen Not Detected Ethyl Alcohol Assessment and Plan (1) Syncope: Status: Acute (2) Back pain: Status: Acute (3) ESRD on dialysis: Status: Acute Plan 27-year-old male with a history of ADHD, hyperactivity, anemia, anxiety, depression, remote history of drug addiction with IV heroin use disorder-no use in 3 years and marijuana daily use , end-stage renal disease, glomerulonephritis, hematemesis, hypertension, migraines without auras, who presents to the emergency room for 2 consecutive days with complaint of witnessed syncope without seizure activity 1.Syncope -monitor sinus rhythm; no dysrhythmia is noted -check 2D echo -EEG; mildly abnormal EEG suggestive of underlying tendency for frontal lobe seizure disorder -neurology consult appreciated -MRI in a.m. with contrast; hemodialysis to follow-up 2. Back pain/bilateral lower extremity pain -MRI with mild stenosis -pain management 3. End-stage renal disease on HD -renal consult -hemodialysis inpatient Full code Heparin Will require ongoing hospitalization to complete workup for syncope and receive dialysis prior to discharge Time Spent With Patient Time: Total time managing care of this patient today ____ minutes. Quality Stroke Does the patient have a stroke diagnosis?: No VTE Prior VTE?: No VTE Risk Level:: Medical - moderate - high VTE Device Contraindication: Treatment Not Indicated VTE Drug Contraindication: N/A - Med Ordered
[2023-03-14 15:23] VITALS: BP 148/98; PULSE 71; RESP 14; TEMP 35.9; O2SAT 96
[2023-03-14] MEDS: diphenhydrAMINE HCL 25 MG CAPSULE PO (18:17)
[2023-03-14 19:14] VITALS: BP 138/89; PULSE 84; RESP 14; TEMP 36.7; O2SAT 96
[2023-03-14] MEDS: Melatonin 3 MG TABLET 6 MG PO (20:11)
[2023-03-14 22:57] VITALS: BP 122/69; PULSE 70; RESP 18; TEMP 36.2; O2SAT 98
[2023-03-15] MEDS: HYDROmorphone HCl 0.5 MG/0.5 ML SYRINGE SUBCUT ×6 (00:23→21:44)
[2023-03-15 03:12] VITALS: BP 149/96; PULSE 73; RESP 18; TEMP 36.3; O2SAT 98
[2023-03-15] MEDS: Omeprazole 20 MG CAPSULE.DR PO (04:51)
[2023-03-15] MEDS: Heparin Sodium,Porcine 5,000 UNIT/ML VIAL 5000 UNIT SUBCUT ×3 (04:51→21:44)
[2023-03-15 07:39] VITALS: BP 140/80; PULSE 80; RESP 20; TEMP 36.4; O2SAT 98
[2023-03-15] MEDS: Cinacalcet HCl 30 MG TABLET 90 MG PO (08:22)
[2023-03-15] MEDS: Sennosides/Docusate Sodium TABLET 2 TAB PO ×2 (08:22→21:46)
[2023-03-15] MEDS: carvediloL 25 MG TABLET PO ×2 (08:22→21:46)
[2023-03-15] MEDS: Losartan Potassium 50 MG TABLET 100 MG PO (08:23)
[2023-03-15] MEDS: Sertraline HCL 50 MG TABLET PO (08:23)
[2023-03-15] MEDS: Gabapentin 100 MG CAPSULE 200 MG PO ×2 (08:23→21:47)
[2023-03-15] MEDS: Acetaminophen 325 MG TABLET 650 MG PO (08:23)
[2023-03-15] MEDS: NIFEdipine ER 60 MG TAB.ER.24 PO (08:23)
[2023-03-15] MEDS: Atorvastatin Calcium 20 MG TABLET PO (08:23)
[2023-03-15] MEDS: 0.9 % Sodium Chloride Flush 3 ML SYRINGE IVFLUSH ×3 (08:24→21:47)
[2023-03-15] MEDS: Sevelamer Carbonate Tablet 800 MG TABLET 2400 MG PO ×3 (08:24→18:06)
--- NOTE | 2023-03-15 10:26 | MHC.CM.PN ---
Per ROUNDS discussion, Patient is having a MRI @ noon and then HD and is not yet medically cleared for dc. Home/resume HD is the goal and CM will continue to follow.
[2023-03-15 11:11] VITALS: BP 168/104; PULSE 74; RESP 20; TEMP 36.3; O2SAT 96
[2023-03-15] MEDS: ondansetron HCL 4 MG/2 ML VIAL IVPUSH (12:45)
--- NOTE | 2023-03-15 14:15 | PM.PNNEP ---
Subjective Subjective Date of Service: 03/15/23 Interval history: Seen adn examined, events noted Physical Exam Vital Signs: Vital Signs: Last Vital Signs Temp 97.3 F 03/15/23 11:11 Pulse 74 03/15/23 11:11 Resp 20 03/15/23 11:11 BP 168/104 H 03/15/23 11:11 Pulse Ox 96 03/15/23 11:11 O2 Del Method Room Air 03/15/23 11:11 BMI result Body Mass Index 29.4 Const: General: no acute distress Orientation/consciousness: patient oriented x3 Eyes: EOM: EOMs intact bilaterally Neck: Neck: Yes supple Chest: Other: Permcath in place Resp: Auscultation: diminished lung sounds Cardio: Rate: regular rate GI: Other: Has a PD catheter in place Palpation (GI): Soft to palpation Skin: General skin exam: no rashes or lesions noted Neuro: General: patient oriented x3 and moves all extremities Objective Data Labs 03/13/23 15:16 03/13/23 15:16 Microbiology Microbiology Results: Microbiology 03/14/23 Unknown Urine clean catch - Urine vang top Urine Culture - Final No growth. 03/13/23 15:16 Blood - Venous Blood Culture - Preliminary No growth after 24 hours. 03/13/23 15:16 Blood - Venous Blood Culture - Preliminary No growth after 24 hours. Procedures Date of Service Date of Service: 03/15/23 Assessment & Plan Assessment and plan (1) ESRD on dialysis: Status: Acute (2) Syncope: Status: Acute (3) Back pain: Status: Acute Plan 27-year-old male with a history of ADHD, hyperactivity, anemia, anxiety, depression, end-stage renal disease adn with ques SZ and gettng w/u Recently switched from CCDto iHD 1. ESRD: HD today after MRI w [facility] 2 2. SZ vs syncopevs both: w/u in progress 3. PD cath still inplace--schedule remova; 4. Hemoaccess: cont using Pcath and look to have AVF placed as outpt REC: cont HD 3x/wk; scheduled PD cath removal ( can be done as an outpt ) Time Spent With Patient Time: Total time managing care of this patient today ____ minutes. Progress Note: Quality Stroke Does the patient have a stroke diagnosis?: No
[2023-03-15] MEDS: ALPRAZolam 0.5 MG TABLET PO (14:40)
[2023-03-15] MEDS: diphenhydrAMINE HCL 25 MG CAPSULE PO (14:40)
--- NOTE | 2023-03-15 14:59 | P.PNIM_ITS ---
Subjective Subjective Date of Service: 03/15/23 Interval History: No acute issues overnight. Review of Systems Denies chest pain Denies shortness of breath Denies nausea vomiting diarrhea Denies fever chills Physical Exam Vital Signs: Vital Signs: Last Vital Signs Temp 97.3 F 03/15/23 11:11 Pulse 74 03/15/23 11:11 Resp 20 03/15/23 11:11 BP 168/104 H 03/15/23 11:11 Pulse Ox 96 03/15/23 11:11 O2 Del Method Room Air 03/15/23 11:11 BMI result Body Mass Index 29.4 Const: Other: Awake alert no acute distress Chest: Other: Right in left sided chest Port-A-Cath Resp: Other: Clear to auscultation bilaterally no rales rhonchi or wheezes Cardio: Other: No S4; positive S1-S2; no S3 murmurs rubs or gallops GI: Other: Soft nontender nondistended normoactive bowel sounds. Peritoneal dialysis catheter in place Neuro: Other: Cranial nerves 2-12 grossly intact as tested. Motor is 5/5 all extremities sensation is intact. Cognition is appropriate Extrem: Other: No edema bilaterally Objective Data Active Medications Acetaminophen (Acetaminophen 325 Mg Tablet) 650 mg PO Q6H PRN PRN Reason: Pain, Mild (Pain Scale 1-3) Last Admin: 03/15/23 08:23 Dose: 650 mg Documented By: MARGARET Alprazolam (Alprazolam 0.5 Mg Tablet) 0.5 mg PO BID PRN PRN Reason: anxiety Last Admin: 03/15/23 14:40 Dose: 0.5 mg Documented By: MARGARET Atorvastatin Calcium (Atorvastatin Calcium 20 Mg Tablet) 20 mg PO DAILY [facility] Last Admin: 03/15/23 08:23 Dose: 20 mg Documented By: MARGARET Calcitriol (Calcitriol 0.25 Mcg Capsule) 0.5 mcg PO MoWeFr@1400 [facility] Carvedilol (Carvedilol 25 Mg Tablet) 25 mg PO BID [facility]; Protocol Last Admin: 03/15/23 08:22 Dose: 25 mg Documented By: MARGARET Cinacalcet (Cinacalcet Hcl 30 Mg Tablet) 90 mg PO MoWeFr@0900 [facility] Last Admin: 03/15/23 08:22 Dose: 90 mg Documented By: MARGARET Clonidine (Clonidine 0.3 Mg Patch.Tdwk) 0.3 mg TRANSDERMA Q168H [facility]; Protocol Clonidine HCl (Clonidine Hcl 0.2 Mg Tablet) 0.2 mg PO DAILY PRN; Protocol PRN Reason: Blood Pressure Last Admin: 03/14/23 06:03 Dose: 0.2 mg Documented By: GARRETT Diphenhydramine HCl (Diphenhydramine Hcl 25 Mg Capsule) 25 mg PO Q6H PRN PRN Reason: Itching Last Admin: 03/15/23 14:40 Dose: 25 mg Documented By: MARGARET Gabapentin (Gabapentin 100 Mg Capsule) 200 mg PO BID [facility] Last Admin: 03/15/23 08:23 Dose: 200 mg Documented By: MARGARET Heparin Sodium (Porcine) (Heparin Sodium,Porcine 5,000 Unit/Ml Vial) 5,000 unit SUBCUT Q8H [facility] Last Admin: 03/15/23 12:45 Dose: 5,000 unit Documented By: MARGARET Heparin Sodium (Porcine) (Heparin Sodium,Porcine 5,000 Unit/Ml Vial) 5,000 unit INTRACATH MOWEFR@1645 [facility] Hydromorphone HCl (Hydromorphone Hcl 0.5 Mg/0.5 Ml Syringe) 0.5 mg SUBCUT Q4H PRN; Protocol PRN Reason: Pain, Severe (Pain Scale 7-10) Last Admin: 03/15/23 12:45 Dose: 0.5 mg Documented By: MARGARET Lactulose (Lactulose 20 Gm/30 Ml Solution) 10 gm PO DAILY PRN PRN Reason: Constipation Losartan Potassium (Losartan Potassium 50 Mg Tablet) 100 mg PO DAILY [facility]; Protocol Last Admin: 03/15/23 08:23 Dose: 100 mg Documented By: MARGARET Melatonin (Melatonin 3 Mg Tablet) 6 mg PO BEDTIME PRN PRN Reason: insomnia Last Admin: 03/14/23 20:11 Dose: 6 mg Documented By: LINNEA Nifedipine (Nifedipine Er 60 Mg Tab.Er.24) 60 mg PO DAILY [facility] Last Admin: 03/15/23 08:23 Dose: 60 mg Documented By: MARGARET Nitroglycerin (Nitroglycerin 0.4 Mg Tab.Subl) 0.4 mg SUBLINGUAL Q5M PRN PRN Reason: Chest Pain Omeprazole (Omeprazole 20 Mg Capsule.) 20 mg PO DAILY@0630 [facility] Last Admin: 03/15/23 04:51 Dose: 20 mg Documented By: LINNEA Ondansetron HCl (Ondansetron Hcl 4 Mg/2 Ml Vial) 4 mg IVPUSH Q6H PRN PRN Reason: Nausea and Vomiting Last Admin: 03/15/23 12:45 Dose: 4 mg Documented By: MARGARET Oxycodone HCl (Oxycodone Hcl Immed Release 5 Mg Tablet) 10 mg PO Q4H PRN PRN Reason: Pain, Moderate(Pain Scale 4-6) Pharmacy Consult (Consult Rx Perform Med Rec) 1 each MISCELLANE ONCE PRN PRN Reason: Consult order Polyethylene Glycol (Polyethylene Glycol 3350 17 Gm Powd.Pack) 17 gm PO DAILY PRN PRN Reason: Constipation Senna/Docusate Sodium (Sennosides/Docusate Sodium Tablet) 2 tab PO BID [facility] Last Admin: 03/15/23 08:22 Dose: 2 tab Documented By: MARGARET Sertraline HCl (Sertraline Hcl 50 Mg Tablet) 50 mg PO DAILY [facility] Last Admin: 03/15/23 08:23 Dose: 50 mg Documented By: MARGARET Sevelamer Carbonate (Sevelamer Carbonate Tablet 800 Mg Tablet) 2,400 mg PO TIDWM [facility] Last Admin: 03/15/23 12:45 Dose: 2,400 mg Documented By: MARGARET Sodium Chloride (0.9 % Sodium Chloride Flush 3 Ml Syringe) 3 ml IVFLUSH QSHIFT [facility] Last Admin: 03/15/23 08:24 Dose: 3 ml Documented By: MARGARET Labs 03/13/23 15:16 03/13/23 15:16 Microbiology Microbiology Results: Microbiology 03/14/23 Unknown Urine Culture - Final Urine clean catch - Urine vang top No growth. 03/13/23 15:16 Blood Culture - Preliminary Blood - Venous No growth after 24 hours. 03/13/23 15:16 Blood Culture - Preliminary Blood - Venous No growth after 24 hours. Assessment and Plan (1) Syncope: Status: Acute (2) ESRD on dialysis: Status: Acute Plan 27-year-old male with a history of ADHD, hyperactivity, anemia, anxiety, depression, remote history of drug addiction with IV heroin use disorder-no use in 3 years and marijuana daily use , end-stage renal disease, glomerulonephritis, hematemesis, hypertension, migraines without auras, who presents to the emergency room for 2 consecutive days with complaint of witnessed syncope without seizure activity 1.Syncope -monitor sinus rhythm; no dysrhythmia is noted -check 2D echo -EEG; mildly abnormal EEG suggestive of underlying tendency for frontal lobe seizure disorder -neurology consult appreciated -MRIdone...await further Neuro input 2. Back pain/bilateral lower extremity pain -MRI with mild stenosis -pain management 3. End-stage renal disease on HD -renal consult -hemodialysis inpatient Full code Heparin Will require ongoing hospitalization to complete workup for syncope and receive dialysis prior to discharge Time Spent With Patient Time: Total time managing care of this patient today ____ minutes. Quality Stroke Does the patient have a stroke diagnosis?: No VTE Prior VTE?: No VTE Risk Level:: Medical - moderate - high VTE Device Contraindication: Treatment Not Indicated VTE Drug Contraindication: N/A - Med Ordered
[2023-03-15] MEDS: oxyCODONE HCl Immed Release 5 MG TABLET 10 MG PO (16:30)
[2023-03-15] MEDS: calcitrioL 0.25 MCG CAPSULE 0.5 MCG PO (18:06)
[2023-03-15 19:07] VITALS: BP 140/98; PULSE 101; RESP 14; TEMP 36.2; O2SAT 98
[2023-03-15] MEDS: Melatonin 3 MG TABLET 6 MG PO (21:46)
[2023-03-15] MEDS: levETIRAcetam 500 MG TABLET PO (21:46)
[2023-03-15 23:34] VITALS: BP 132/85; PULSE 95; RESP 20; TEMP 37.1; O2SAT 97
[2023-03-16] MEDS: HYDROmorphone HCl 0.5 MG/0.5 ML SYRINGE SUBCUT (02:45)
[2023-03-16 03:17] VITALS: BP 123/78; PULSE 80; RESP 20; TEMP 36.4; O2SAT 99
[2023-03-16] MEDS: Heparin Sodium,Porcine 5,000 UNIT/ML VIAL 5000 UNIT SUBCUT ×2 (06:11→12:11)
[2023-03-16] MEDS: Omeprazole 20 MG CAPSULE.DR PO (06:12)
[2023-03-16 07:14] VITALS: BP 131/96; PULSE 74; RESP 18; TEMP 36.9; O2SAT 99
--- NOTE | 2023-03-16 08:29 | PC.NURSE ---
pt medicated with dilaudid for 8/10 pain x2 overnight. He dozed off waiting for the 2nd dose and rang again while this RN was obtaining the meds. He asked the [employer] MANA[employer] who answered the navarro if he had been given his meds yet as he couldn't remember. Med was given and pt went to sleep. This am he was roused for scheduled meds and he asked if he could have his oxycodone for 6/10 pain. Med administered and pt put meds in his mouth. This RN turned a way and was immediately alerted by the Video Engineering Assistant that pt had removed meds from his mouth and hidden them in his blankets. Pt was reminded he had a safety camera in use and asked for the meds. He removed them from beside his leg and gave them back. Meds wasted, Dr. Santizo made aware and narcotic orders d/c'd.
[2023-03-16] MEDS: Sertraline HCL 50 MG TABLET PO (08:39)
[2023-03-16] MEDS: Atorvastatin Calcium 20 MG TABLET PO (08:39)
[2023-03-16] MEDS: Losartan Potassium 50 MG TABLET 100 MG PO (08:39)
[2023-03-16] MEDS: levETIRAcetam 500 MG TABLET PO (08:39)
[2023-03-16] MEDS: NIFEdipine ER 60 MG TAB.ER.24 PO (08:39)
[2023-03-16] MEDS: Gabapentin 100 MG CAPSULE 200 MG PO (08:39)
[2023-03-16] MEDS: Sennosides/Docusate Sodium TABLET 2 TAB PO (08:40)
[2023-03-16] MEDS: carvediloL 25 MG TABLET PO (08:40)
[2023-03-16] MEDS: Acetaminophen 325 MG TABLET 650 MG PO (08:40)
[2023-03-16] MEDS: 0.9 % Sodium Chloride Flush 3 ML SYRINGE IVFLUSH (08:43)
--- NOTE | 2023-03-16 10:46 | P.DS_ITS ---
DS: Providers Provider Date of Service: 03/16/23 Date of admission: 03/13/23 18:40 Date of discharge: 03/16/23 Primary care physician: NEL Garcia Consults: 03/13/23 18:22 Consult to Nephrology Stat Consulting Provider: Ruben Graves Reason for consultation: Syncope, hemodialysis Wednesdays, missed dialysis on Has provider been notified: Yes 03/13/23 18:58 Consult to Neurology Routine Consulting Provider: [facility] Reason for consultation: syncop[e Has provider been notified: No DS: Diagnosis Discharge Diagnosis (1) Syncope: Status: Acute (2) ESRD on dialysis: Status: Acute DS: Summary Hospital Course Hospital Course: 27-year-old male with a history of ADHD, hyperactivity, anemia, anxiety, depression, remote history of drug addiction with IV heroin use disorder-no use in 3 years and marijuana daily use , end-stage renal disease, glomerulonephritis, hematemesis, hypertension, migraines without auras, osteomyelitis of the cervical spine, sleep apnea, lupus who presents emergency department for evaluation syncopal episode , lower back pain and pain in his legs from the knees down to his ankles bilaterally.patient has been experiencing lower back pain and bilateral lower extremity pain times weeks.? He states that he feels like his lower back it is bruised .? He states that he has pain in both legs from the knees down to the ankles which she describes as a tingly sensation.? He states that the pain in his back in 8/10 at its worst.? The tony ent was recently hospitalized at [facility] from 03/08/2023 for until 03/11/2023 for abdominal pain and was ruled out for peritonitis (patient was getting peritoneal dialysis and is now getting hemodialysis through a left chest dialysis catheter).? Yesterday he was walking into his kitchen, he had a syncopal episode and fell forward.? He had no premonition prior to the syncopal episode and remembers waking up on the floor.? He was seen by me in the emergency department, he had a CT scan of the head and neck which was negative and laboratory evaluation and EKG which were? unremarkable.? Labs were consistent with his end-stage renal disease.? Hospital Course Patient admitted to telemetry where his monitor failed to demonstrate any dysrhythmias. 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 Subsequent MRI confirms same. EEG done suggestive of underlying tendencies for frontal lobe seizures confirming diagnosis. Patient was started on Keppra 500 b.i.d. will continue as an outpatient. He is instructed not to drive until follow-up with Neurology. Time Spent with Patient Time attestation: Total time managing care of this patient today ____ minutes. Discharge coordination time: Greater than 30 minutes Quality: Safe Use of Opioids Does Pt have an Active Cancer Diagnosis on the Problem List?: No Quality: Stroke Does the patient have a stroke diagnosis?: No Physical Exam Vital Signs: Vital Signs: Last Vital Signs Temp 98.5 F 03/16/23 07:14 Pulse 74 03/16/23 07:14 Resp 18 03/16/23 07:14 BP 131/96 H 03/16/23 07:14 Pulse Ox 99 03/16/23 07:14 O2 Del Method Room Air 03/16/23 07:14 BMI result Body Mass Index 29.4 Const: Other: Awake alert no acute distress Chest: Other: Right in left sided chest Port-A-Cath Resp: Other: Clear to auscultation bilaterally no rales rhonchi or wheezes Cardio: Other: No S4; positive S1-S2; no S3 murmurs rubs or gallops GI: Other: Soft nontender nondistended normoactive bowel sounds. Peritoneal dialysis catheter in place Neuro: Other: Cranial nerves 2-12 grossly intact as tested. Motor is 5/5 all extremities sensation is intact. Cognition is appropriate Extrem: Other: No edema bilaterally DS: Data Data Completed and Pending Labs on day of discharge: Preliminary micro results at discharge 03/13/23 15:16 Blood Culture - Preliminary Blood - Venous No growth after 48 hours. 03/13/23 15:16 Blood Culture - Preliminary Blood - Venous No growth after 48 hours. Discharge Plan Discharge Anticipated Discharge Date/Time: 03/16/23 10:43 Patient Disposition: Home, Self-Care Discharge Diagnosis: New onset seizures Referrals: Pillo Trejo MANAGER [facility] [Primary Care Provider] - 1 Week Discharge Medications: New levetiracetam 500 mg Tablet 500 mg PO BID Qty: 60 0RF Continued carvedilol 25 mg tablet 25 mg PO BID atorvastatin 20 mg tablet 20 mg PO DAILY ondansetron HCl 4 mg tablet 4 mg PO Q8H PRN (Reason: Nausea) sennosides-docusate sodium [Senna Plus] 8.6-50 mg tablet 2 tab PO BID hydralazine 25 mg tablet 25 mg PO TID acetaminophen 500 mg tablet 1,000 mg PO TID PRN (Reason: pain) alprazolam 0.5 mg tablet 0.5 mg PO BID PRN (Reason: anxiety) clonidine HCl 0.2 mg tablet 0.2 mg PO DAILY PRN (Reason: Blood Pressure) pantoprazole 40 mg tablet,delayed release (DR/EC) 40 mg PO DAILY nitroglycerin 0.4 mg tablet, sublingual 0.4 mg sublingual Q5M PRN (Reason: Chest Pain) calcium carbonate 500 mg calcium (1,250 mg) Tablet,Chewable 500 mg PO DAILY clonidine 0.3 mg/24 hr patch weekly 1 patch topical QWEEK gabapentin 100 mg capsule 200 mg PO BID polyethylene glycol 3350 17 gram/dose powder 17 g PO DAILY PRN (Reason: Constipation) nifedipine 60 mg tablet extended release 60 mg PO DAILY losartan 100 mg tablet 100 mg PO DAILY sertraline 50 mg tablet 50 mg PO DAILY cinacalcet 90 mg Tablet 90 mg PO MOWEFR lactulose 10 gram/15 mL solution 15 ml PO DAILY PRN (Reason: Constipation) sevelamer carbonate 800 mg tablet 2,400 mg PO TIDWMEAL hydrocortisone 0.5 % Cream 1 appl TOPICAL DAILY PRN (Reason: Rash) Rx Instructions: face calcitriol 0.5 mcg Capsule 0.5 mcg PO MOWEFR Rx Instructions: administer after dialysis on dialysis days ergocalciferol (vitamin D2) [Vitamin D2] 1,250 mcg (50,000 unit) Capsule 1,250 mcg PO FR ketoconazole 2 % Cream 1 appl TOPICAL DAILY PRN (Reason: Rash) Rx Instructions: face Discharge Orders: Discharge Order (Routine); Ordered 03/16/23 Ordered By: Lemuel Goldstein Diet: Advance to usual diet Activity on Discharge: As tolerated Stand Alone Forms: Patient Portal Discharge page Care Plan Goals: Start Keppra 500 b.i.d.. Health Concerns: No driving to re-evaluated by Neurology Plan of Treatment: Continue all other outpatient therapies Assessment: See discharge summary
--- NOTE | 2023-03-16 11:13 | MHC.CM.PN ---
order for home, self-care. CM acknowledge.
[2023-03-16 11:38] VITALS: BP 116/85; PULSE 81; RESP 18; TEMP 36.8; O2SAT 98
[2023-03-16] MEDS: ondansetron HCL 4 MG/2 ML VIAL IVPUSH (12:11)
== END 2023-03-16 15:35 | disposition home or self-care (01) | DRG 100 ==
LOC: HO.ED 18:10 → HO.EDOVER 18:49 → HO.IMC 19:08
PROVIDERS: Admitting Provider Hospitalist; Emergency Provider Emergency Medicine Emergency Medical Services; PCP Nurse Practitioner Family; Visit Provider Hospitalist
DX: G40.802 Other epilepsy, not intractable, without status epilepticus (principal); N18.6 End stage renal disease; Q28.3 Other malformations of cerebral vessels; I12.0 Hypertensive chronic kidney disease with stage 5 chronic kidney disease or end stage renal disease; R55 Syncope and collapse; F90.1 Attention-deficit hyperactivity disorder, predominantly hyperactive type; M32.9 Systemic lupus erythematosus, unspecified; Z99.2 Dependence on renal dialysis; Z79.899 Other long term (current) drug therapy
CPT/HCPCS: 36415; 70450; 70553; 71046; 72125; 72158; 73030; 73080; 80053; 80307; 81001; 83605; 83690; 85025; 85610; 85730; 87040; 87086; 90999; 93005; 93306; 95816; 99285; A9585; J1170; J1200; J1643; J2405

== ENCOUNTER 2023-03-19 22:39 | Emergency (ER) | payer OTHER, SELFPAY ==
[2023-03-19 22:54] VITALS: BP 171/116; PULSE 79; RESP 17; TEMP 37.1
--- NOTE | 2023-03-19 23:00 | ED_ITS ---
HPI - Syncope General Chief Complaint: General Medical Stated Complaint: syncope Time Seen by Provider: 03/19/23 23:00 Source: patient Mode of arrival: ambulatory Limitations: no limitations History of Present Illness HPI narrative: Patient with end-stage renal disease on hemodialysis with newly diagnosed seizures came for episode of syncope questionable seizure episode.? Patient is on clonidine 0.3 mg patch but noticed that he was not wearing the patch just before EMS arrived and put a new patch on arrival patient's blood pressure was elevated to 171/116 it is not sure for how long patient had patch off,? history is not reliable compliance and not reliable patient does not sleep well in the night similar deprivation could be the cause for is having syncope/seizure episodes patient has been to [facility] all 3- 4 times a month for multiple issues most of time looks like noncompliance to his medication.? Patient states that he took his Keppra but the way his sleep pattern is not sure if taking on right time Related Data Home Medications Medication Instructions Recorded Confirmed acetaminophen 500 mg tablet 1,000 mg PO TID PRN pain 03/13/23 03/13/23 alprazolam 0.5 mg tablet 0.5 mg PO BID PRN anxiety 03/13/23 03/13/23 atorvastatin 20 mg tablet 20 mg PO DAILY 03/13/23 03/13/23 calcitriol 0.5 mcg capsule 0.5 mcg PO MOWEFR 03/13/23 03/13/23 calcium carbonate 500 mg calcium 500 mg PO DAILY 03/13/23 03/13/23 (1,250 mg) chewable tablet carvedilol 25 mg tablet 25 mg PO BID 03/13/23 03/13/23 cinacalcet 90 mg tablet 90 mg PO MOWEFR 03/13/23 03/13/23 clonidine 0.3 mg/24 hr weekly 1 patch topical QWEEK 03/13/23 03/13/23 transdermal patch clonidine HCl 0.2 mg tablet 0.2 mg PO DAILY PRN Blood Pressure 03/13/23 03/13/23 ergocalciferol (vitamin D2) 1,250 1,250 mcg PO FR 03/13/23 03/13/23 mcg (50,000 unit) capsule (Vitamin D2) gabapentin 100 mg capsule 200 mg PO BID 03/13/23 03/13/23 hydralazine 25 mg tablet 25 mg PO TID 03/13/23 03/13/23 hydrocortisone 0.5 % topical cream 1 appl topical DAILY PRN Rash 03/13/23 03/13/23 ketoconazole 2 % topical cream 1 appl topical DAILY PRN Rash 03/13/23 03/13/23 lactulose 10 gram/15 mL oral 15 ml PO DAILY PRN Constipation 03/13/23 03/13/23 solution losartan 100 mg tablet 100 mg PO DAILY 03/13/23 03/13/23 nifedipine 60 mg tablet,extended 60 mg PO DAILY 03/13/23 03/13/23 release nitroglycerin 0.4 mg sublingual 0.4 mg sublingual Q5M PRN Chest 03/13/23 03/13/23 tablet Pain ondansetron HCl 4 mg tablet 4 mg PO Q8H PRN Nausea 03/13/23 03/13/23 pantoprazole 40 mg tablet,delayed 40 mg PO DAILY 03/13/23 03/13/23 release polyethylene glycol 3350 17 17 g PO DAILY PRN Constipation 03/13/23 03/13/23 gram/dose oral powder sennosides 8.6 mg-docusate sodium 2 tab PO BID 03/13/23 03/13/23 50 mg tablet (Senna Plus) sertraline 50 mg tablet 50 mg PO DAILY 03/13/23 03/13/23 sevelamer carbonate 800 mg tablet 2,400 mg PO TIDWMEAL 03/13/23 03/13/23 Previous Rx's Medication Instructions Recorded levetiracetam 500 mg tablet 500 mg PO BID #60 tabs 03/16/23 Allergies Allergy/AdvReac Type Severity Reaction Status Date / Time lorazepam [From Ativan] AdvReac Shakiness Verified 03/15/23 14:31 metoclopramide [From Reglan] AdvReac Nausea Verified 03/15/23 14:31 Review of Systems Review of Systems: Yes all other systems are reviewed and are negative PMFSH Past Medical History Medical History Back pain Bilateral lower extremity pain End stage chronic kidney disease ESRD on dialysis Social History Social History Household Members: Family Household Members Other:: mom, step dad, sister and nephew Housing: House Do you presently have visiting nurse or other home services: No Alcohol intake: never Patient Tobacco Use Status: Never used Tobacco Smoked in Last 30 Days: Yes Use of substances other than those prescribed or required for medical reasons: Yes Substance Use Type: Marijuana Substance Use Frequency: Daily Substance Use Frequency Other:: 1 Last Used Substance: Days (ago) Any prior treatment program specific to substance use: No Advance Directives: No Advance Directives Information Provided: No service: No Physical Exam Vital Signs: Vital Signs: Last Vital Signs Temp 98.4 F 03/20/23 02:53 Pulse 80 03/20/23 02:53 Resp 18 03/20/23 02:53 BP 160/104 H 03/20/23 02:53 Pulse Ox 99 03/20/23 02:51 O2 Del Method Room Air 03/20/23 02:51 BMI result Body Mass Index 29.2 Appearance: Alert. Oriented X3. No acute distress. Eyes: PERRLA, No Nystagmus pale+ ENT: Pharynx normal. Oral Mucosa moist Neck: Normal inspection. Neck supple. CVS: Normal heart rate and rhythm. Pulses normal. Respiratory: No respiratory distress. Equal air entry bilateral, no wheezing/rales/rhonchi Abdomen: Soft and nontender. Bowel sounds are present, no mass palpable, no CVA tenderness Skin: Skin warm and dry. Normal skin color. Normal skin turgor. Extremities: No lower extremity edema. No calf tenderness Neuro: Oriented X 3. No motor deficit. No sensory deficit.No cerebellar signs , cranial nerves II-XII intact Medications Administered Generic Name Dose Route Start Last Admin Trade Name Freq PRN Reason Stop Dose Admin Heparin Sodium (Porcine) 50 0 units 03/20/23 08:00 03/20/23 03:31 units/ Sodium Chloride 5 ml IVFLUSH 50 unit QSHIFT [facility] Administration Discontinued Medications Generic Name Dose Route Start Last Admin Trade Name Freq PRN Reason Stop Dose Admin Clonidine HCl 0.2 mg 03/20/23 02:21 03/20/23 02:35 Clonidine Hcl 0.2 Mg Tablet PO 03/20/23 02:22 0.2 mg ONCE ONE Administration Protocol Hydralazine HCl 10 mg 03/19/23 23:30 03/20/23 00:02 Hydralazine Hcl 20 Mg/Ml Vial IVPUSH 03/19/23 23:31 10 mg ONCE ONE Administration Protocol Hydralazine HCl 20 mg 03/20/23 01:49 03/20/23 01:59 Hydralazine Hcl 20 Mg/Ml Vial IVPUSH 03/20/23 01:50 20 mg ONCE ONE Administration Protocol Morphine Sulfate 4 mg 03/20/23 01:49 03/20/23 01:58 Morphine Sulfate 4 Mg/Ml Cartridge IVPUSH 03/20/23 01:50 4 mg ONCE ONE Administration Protocol Ondansetron HCl 4 mg 03/20/23 01:51 03/20/23 01:58 Ondansetron Hcl 4 Mg/2 Ml Vial IVPUSH 03/20/23 01:52 4 mg ONCE ONE Administration Medical Decision Making Medical Decision Making [facility] Narrative: Patient with end-stage renal disease on hemodialysis with newly diagnosed seizures came for episode of syncope questionable seizure episode. Patient is on clonidine 0.3 mg patch but noticed that he was not wearing the patch just before EMS arrived and put a new patch on arrival patient's blood pressure was elevated to 171/116 it is not sure for how long patient had patch off, history is not reliable compliance and not reliable patient does not sleep well in the night similar deprivation could be the cause for is having syncope/seizure episodes patient has been to [facility] all 3 4 times a month for multiple issues most of time looks like noncompliance to his medication. Patient due for dialysis tomorrow will discharge patient home advised to continue his body and take them on time Patient received IV dose of hydralazine 2 times p.o. clonidine blood pressure improved discharge patient home Lab Data [facility] Lab Attestation statement: I reviewed the patient's lab results. 03/20/23 00:08 03/20/23 00:08 Labs: Lab Results 03/20/23 03/20/23 Range/Units 00:08 00:08 WBC 8.5 (4.8-10.8) X10*3/uL RBC 2.81 L D (4.60-5.80) X10*6/uL Hgb 8.3 L D (14.0-18.0) g/dl Hct 24.9 L D (42.0-52.0) % MCV 88.6 (80.0-98.0) fL MCH 29.5 (27.0-33.0) pg MCHC 33.3 (31.0-36.0) g/dl RDW 13.5 (11.0-16.0) % Plt Count 133 L (160-400) X10*3/uL MPV 9.6 (9.4-12.4) fL Immature Gran % (Auto) 0.6 H (0.0-0.4) % Neut % (Auto) 67.8 (45-73) % Lymph % (Auto) 13.7 L (20-40) % Pender % (Auto) 12.1 H (2-11) % Eos % (Auto) 5.2 H (0-4) % Baso % (Auto) 0.6 (0-2) % Lymph # (Auto) 1.2 (1.2-4.9) X10*3/uL Pender # (Auto) 1.0 (0.1-1.2) X10*3/uL Eos # (Auto) 0.4 (0.0-0.4) X10*3/uL Baso # (Auto) 0.1 (0.0-0.2) X10*3/uL Abs Immat Gran (auto) 0.05 H (0.00-0.03) X10*3/uL Absolute Neuts (auto) 5.8 (2.0-8.3) x10*3/uL Absolute Nucleated RBC 0.000 (0.0-0.012) X10*3/uL Nucleated RBC % (auto) 0.0 (0.0-0.2) /100WBC Sodium 143 (135-145) mmol/L Potassium 4.0 (3.3-5.1) mmol/L Chloride 105 (96-108) mmol/L Carbon Dioxide 27 (22-29) mmol/L Anion Gap 15 (12-20) BUN 32 H (9-16) mg/dL Creatinine 9.71 H* (0.5-1.4) mg/dL Estim Creat Clear Calc 13.7 Estimated GFR 6 Random Glucose 85 (60-115) mg/dL Calcium 9.5 (8.4-10.2) mg/dL Total Bilirubin 0.4 (0.0-1.0) mg/dL AST 11 (5-37) U/L ALT 11 (0-40) U/L Alkaline Phosphatase 43 (39-117) U/L Total Protein 5.1 L (6.5-8.0) g/dL Albumin 3.2 L (3.5-5.0) g/dL Critical Care Time Critical Care Time Critical Care Time: Yes Total Critical Care Time: 35 Attestation: The patient was critically ill with a high probability of imminent or life threatening deterioration. I spent greater than 40 minutes of discontinuous time evaluating the patient,delivering critical care at the bedside, discussing and evaluating pertinent data with consultants. Critical care time does not include time spent performing separately billable procedures or teaching. Total time spent performing critical care was 35 minutes. 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, End stage chronic kidney disease, Chronic pain Instructions: Syncope (ED), Chronic Pain (ED), Epilepsy (ED), End Stage Kidney Disease (ED) Additional Instructions: Sleep well avoid sleep deprivation Taking medication on time Follow-up with your kidney doctor and PCP Prescriptions: No Action carvedilol 25 mg tablet 25 mg PO BID atorvastatin 20 mg tablet 20 mg PO DAILY ondansetron HCl 4 mg tablet 4 mg PO Q8H PRN (Reason: Nausea) sennosides-docusate sodium [Senna Plus] 8.6-50 mg tablet 2 tab PO BID hydralazine 25 mg tablet 25 mg PO TID acetaminophen 500 mg tablet 1,000 mg PO TID PRN (Reason: pain) alprazolam 0.5 mg tablet 0.5 mg PO BID PRN (Reason: anxiety) clonidine HCl 0.2 mg tablet 0.2 mg PO DAILY PRN (Reason: Blood Pressure) pantoprazole 40 mg tablet,delayed release (DR/EC) 40 mg PO DAILY nitroglycerin 0.4 mg tablet, sublingual 0.4 mg sublingual Q5M PRN (Reason: Chest Pain) calcium carbonate 500 mg calcium (1,250 mg) Tablet,Chewable 500 mg PO DAILY clonidine 0.3 mg/24 hr patch weekly 1 patch topical QWEEK gabapentin 100 mg capsule 200 mg PO BID polyethylene glycol 3350 17 gram/dose powder 17 g PO DAILY PRN (Reason: Constipation) nifedipine 60 mg tablet extended release 60 mg PO DAILY losartan 100 mg tablet 100 mg PO DAILY sertraline 50 mg tablet 50 mg PO DAILY cinacalcet 90 mg Tablet 90 mg PO MOWEFR lactulose 10 gram/15 mL solution 15 ml PO DAILY PRN (Reason: Constipation) sevelamer carbonate 800 mg tablet 2,400 mg PO TIDWMEAL hydrocortisone 0.5 % Cream 1 appl TOPICAL DAILY PRN (Reason: Rash) Rx Instructions: face calcitriol 0.5 mcg Capsule 0.5 mcg PO MOWEFR Rx Instructions: administer after dialysis on dialysis days ergocalciferol (vitamin D2) [Vitamin D2] 1,250 mcg (50,000 unit) Capsule 1,250 mcg PO FR ketoconazole 2 % Cream 1 appl TOPICAL DAILY PRN (Reason: Rash) Rx Instructions: face levetiracetam 500 mg Tablet 500 mg PO BID Qty: 60 0RF Interventions: ED Discharge Assessment Last Done: 03/20/23 03:12
--- NOTE | 2023-03-19 23:30 | ECG_ITS ---
Test Reason : HEART Blood Pressure : / mmHG Vent. Rate : 075 BPM Atrial Rate : 075 BPM P-R Int : 190 ms QRS Dur : 098 ms QT Int : 380 ms P-R-T Axes : 064 032 057 degrees QTc Int : 424 ms Normal sinus rhythm Normal ECG When compared with ECG of 13-MAR-2023 14:07, No significant change was found Referred By: Michele Esqueda Electronically Signed By:Juvencio Vila
[2023-03-19 23:35] VITALS: BP 170/116; PULSE 77; RESP 16; TEMP 36.9; O2SAT 99; BMI 29.2
--- NOTE | 2023-03-19 23:47 | PC.NURSE ---
patient is here in the ER due to patient complaining of having episodes of passing out at home patient is alert and oriented patient is waiting to have doctor to come and assess patient will continue to be monitored for safety
[2023-03-20] VITALS: BP 170/116; PULSE 75; RESP 18; TEMP 36.9; O2SAT 99
[2023-03-20] MEDS: hydrALAZINE HCl 20 MG/ML VIAL 10 MG IVPUSH (00:02)
[2023-03-20 00:15] LABS: MANUAL DIFF FLAG NO
[2023-03-20 00:16] LABS: Basophils Absolute Auto 0.1 X10*3/uL (0.0-0.2); Basophils Percent Auto 0.6 % (0-2); Eosinophils Absolute Auto 0.4 X10*3/uL (0.0-0.4); Eosinophils Percent Auto 5.2 % (0-4); Hematocrit 24.9 % (42.0-52.0); Hemoglobin 8.3 g/dl (14.0-18.0); Imm Gran Abs Auto 0.05 X10*3/uL (0.00-0.03); Imm Gran Pct Auto 0.6 % (0.0-0.4); Lymphocytes Absolute Auto 1.2 X10*3/uL (1.2-4.9); Lymphocytes Percent Auto 13.7 % (20-40); Mean Corpuscular HGB Conc 33.3 g/dl (31.0-36.0); Mean Corpuscular Hemoglobin 29.5 pg (27.0-33.0); Mean Corpuscular Volume 88.6 fL (80.0-98.0); Mean Platelet Volume 9.6 fL (9.4-12.4); Monocytes Percent Auto 12.1 % (2-11); Neutrophils Absolute Auto 5.8 x10*3/uL (2.0-8.3); Neutrophils Percent Auto 67.8 % (45-73); Platelet Count 133 X10*3/uL (160-400); Red Blood Count 2.81 X10*6/uL (4.60-5.80); Red Cell Distribution Width 13.5 % (11.0-16.0); White Blood Count 8.5 X10*3/uL (4.8-10.8)
[2023-03-20 00:37] LABS: Alanine Aminotransferase 11 U/L (0-40); Albumin Level 3.2 g/dL (3.5-5.0); Alkaline Phosphatase 43 U/L (39-117); Anion Gap 15 (12-20); Aspartate Amino Transferase 11 U/L (5-37); Bilirubin Total 0.4 mg/dL (0.0-1.0); Blood Urea Nitrogen 32 mg/dL (9-16); Calcium 9.5 mg/dL (8.4-10.2); Carbon Dioxide 27 mmol/L (22-29); Chloride 105 mmol/L (96-108); Creatinine Clr Calc Pharmacy 13.7; Estimated Glomerular Filt Rate 6; Glucose Random 85 mg/dL (60-115); Sodium 143 mmol/L (135-145); Total Protein 5.1 g/dL (6.5-8.0)
[2023-03-20 01:50] VITALS: BP 178/115; PULSE 92; RESP 18; TEMP 37; O2SAT 99
[2023-03-20 01:58] VITALS: RESP 16
[2023-03-20] MEDS: Morphine Sulfate 4 MG/ML CARTRIDGE IVPUSH (01:58)
[2023-03-20] MEDS: ondansetron HCL 4 MG/2 ML VIAL IVPUSH (01:58)
[2023-03-20] MEDS: hydrALAZINE HCl 20 MG/ML VIAL IVPUSH (01:59)
--- NOTE | 2023-03-20 02:02 | PC.NURSE ---
patient received all medication by port patient vitals are elevated patient was given medication to help with the lower extremities pain 06/02 patient will continue to be monitored for safety
[2023-03-20] MEDS: cloNIDine HCL 0.2 MG TABLET PO (02:35)
[2023-03-20 02:51] VITALS: BP 160/104; PULSE 77; RESP 16; TEMP 36.9; O2SAT 99
[2023-03-20 02:53] VITALS: BP 160/104; PULSE 80; RESP 18; TEMP 36.9
--- NOTE | 2023-03-20 03:10 | PC.NURSE ---
'patient in the process of being discharged patient will continue to be given all paperwork
[2023-03-20] MEDS: Heparin Sodium,Porcine Flush 50 UNITS, 0.9 % Sodium Chloride Flush 5 ML IVFLUSH (03:31)
== END 2023-03-20 03:56 | disposition home or self-care (01) ==
PROVIDERS: Emergency Provider Internal Medicine; PCP Nurse Practitioner Family
DX: G40.909 Epilepsy, unspecified, not intractable, without status epilepticus (principal); R55 Syncope and collapse; G89.29 Other chronic pain; Z79.899 Other long term (current) drug therapy
CPT/HCPCS: 36415; 80053; 85025; 93005; 96374; 96375; 96376; 99285; J1642; J2270; J2405

== ENCOUNTER 2023-03-20 23:19 | Emergency (ER) | payer OTHER, SELFPAY ==
--- NOTE | ~2023-03-20 | CT_ITS ---
EXAMINATION: NONCONTRAST HEAD CT NONCONTRAST CERVICAL SPINE CT INDICATION INFORMATION: Seizure, headache and neck pain COMPARISON: 03/13/2023 TECHNIQUE: Separate noncontrast CT examinations of the head and cervical spine were performed. Coronal head CT images and coronal and sagittal cervical spine images were created at the technologist workstation. DLP: 1141 mGy-cm DOSE LOWERING TECHNIQUES: This CT examination was performed using dose optimization techniques as appropriate, variously including the following: - Automated exposure control - Adjustment of mA and/or kV according to patient size (this includes techniques or standardized protocols for targeted exams were dose is matched to indication/reason for exam; i.e. extremities or head) - Use of iterative reconstruction technique FINDINGS: Head: There is no evidence of acute intracranial hemorrhage or territorial infarction. No abnormal mass-effect or midline shift is seen. Bruce to white matter differentiation is well preserved. No extra-axial fluid collections are identified. The ventricles are normal in size. Redemonstrated right frontal lobe calcifications. The osseous structures and soft tissues are normal. Small mucous retention cysts in the sphenoid sinuses. The mastoid air cells are well-aerated. Cervical spine: Grade 1 anterolisthesis of C2 on C3 is unchanged. Alignment of the cervical spine otherwise appears anatomic. Vertebral body heights are maintained. There is disc space narrowing and surrounding endplate irregularity at C3-C4. No evidence of acute fracture. No prevertebral soft tissue swelling. Visualized portions of the lung apices are unremarkable. The thyroid gland is unremarkable. CT/CT cervical spine wo IV con IMPRESSION: No acute findings identified in the head or cervical spine.
--- NOTE | ~2023-03-20 | CT_ITS ---
EXAMINATION: NONCONTRAST HEAD CT NONCONTRAST CERVICAL SPINE CT INDICATION INFORMATION: Seizure, headache and neck pain COMPARISON: 03/13/2023 TECHNIQUE: Separate noncontrast CT examinations of the head and cervical spine were performed. Coronal head CT images and coronal and sagittal cervical spine images were created at the technologist workstation. DLP: 1141 mGy-cm DOSE LOWERING TECHNIQUES: This CT examination was performed using dose optimization techniques as appropriate, variously including the following: - Automated exposure control - Adjustment of mA and/or kV according to patient size (this includes techniques or standardized protocols for targeted exams were dose is matched to indication/reason for exam; i.e. extremities or head) - Use of iterative reconstruction technique FINDINGS: Head: There is no evidence of acute intracranial hemorrhage or territorial infarction. No abnormal mass-effect or midline shift is seen. Bruce to white matter differentiation is well preserved. No extra-axial fluid collections are identified. The ventricles are normal in size. Redemonstrated right frontal lobe calcifications. The osseous structures and soft tissues are normal. Small mucous retention cysts in the sphenoid sinuses. The mastoid air cells are well-aerated. Cervical spine: Grade 1 anterolisthesis of C2 on C3 is unchanged. Alignment of the cervical spine otherwise appears anatomic. Vertebral body heights are maintained. There is disc space narrowing and surrounding endplate irregularity at C3-C4. No evidence of acute fracture. No prevertebral soft tissue swelling. Visualized portions of the lung apices are unremarkable. The thyroid gland is unremarkable. CT/CT head/brain wo IV con IMPRESSION: No acute findings identified in the head or cervical spine.
[2023-03-20 23:22] VITALS: BP 168/70; PULSE 90; O2SAT 98
[2023-03-20 23:30] VITALS: BP 148/102; PULSE 78; RESP 10; TEMP 36.9; O2SAT 96; BMI 30.7
--- NOTE | 2023-03-21 00:53 | ED_ITS ---
HPI - Seizure General Chief Complaint: Fall Stated Complaint: seizure/fall Time Seen by Provider: 03/21/23 00:18 Source: patient Mode of arrival: EMS Limitations: other (Patient has no memory of events after his fall) History of Present Illness HPI Narrative: 27-year-old male with a history of ADHD, hyperactivity, anemia, anxiety, depression, remote history of drug addiction with IV heroin use disorder-no use in 3 years and marijuana daily use , end-stage renal disease, glomerulonephritis, hematemesis, hypertension, migraines without auras, osteomyelitis of the cervical spine, sleep apnea, lupus who presents emergency department for evaluation syncopal episode , lower back pain and pain in his legs from the knees down to his ankles bilaterally. The patient told me that he was walking out of the bathroom and then has no memory of what happened after. EMS reported to nursing staff that the patient had a syncopal episode and possible seizure. The patient was seen by me on 03/12/2023 and on 03/13/2023 with similar presentations. 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 The patient was started on Keppra 500 mg b.i.d. and he states he has been compliant with his medication. Patient is currently complaining of pain on the left side of his head which she believes is secondary to striking his head on the floor. He is also complaining of neck pain which she believes is secondary to the fall. He has been experiencing lower back pain and bilateral leg pain for months without a clear etiology. The patient does get hemodialyzed on Mondays, Wednesdays and Fridays he states t hat he was hemodialyzed yesterday without any difficulty. The patient has a left chest dialysis catheter, right chest Port-A-Cath and peritoneal dialysis catheter which is still in place. Related Data Home Medications Medication Instructions Recorded Confirmed acetaminophen 500 mg tablet 1,000 mg PO TID PRN pain 03/13/23 03/13/23 alprazolam 0.5 mg tablet 0.5 mg PO BID PRN anxiety 03/13/23 03/13/23 atorvastatin 20 mg tablet 20 mg PO DAILY 03/13/23 03/13/23 calcitriol 0.5 mcg capsule 0.5 mcg PO MOWEFR 03/13/23 03/13/23 calcium carbonate 500 mg calcium 500 mg PO DAILY 03/13/23 03/13/23 (1,250 mg) chewable tablet carvedilol 25 mg tablet 25 mg PO BID 03/13/23 03/13/23 cinacalcet 90 mg tablet 90 mg PO MOWEFR 03/13/23 03/13/23 clonidine 0.3 mg/24 hr weekly 1 patch topical QWEEK 03/13/23 03/13/23 transdermal patch clonidine HCl 0.2 mg tablet 0.2 mg PO DAILY PRN Blood Pressure 03/13/23 03/13/23 ergocalciferol (vitamin D2) 1,250 1,250 mcg PO FR 03/13/23 03/13/23 mcg (50,000 unit) capsule (Vitamin D2) gabapentin 100 mg capsule 200 mg PO BID 03/13/23 03/13/23 hydralazine 25 mg tablet 25 mg PO TID 03/13/23 03/13/23 hydrocortisone 0.5 % topical cream 1 appl topical DAILY PRN Rash 03/13/23 03/13/23 ketoconazole 2 % topical cream 1 appl topical DAILY PRN Rash 03/13/23 03/13/23 lactulose 10 gram/15 mL oral 15 ml PO DAILY PRN Constipation 03/13/23 03/13/23 solution losartan 100 mg tablet 100 mg PO DAILY 03/13/23 03/13/23 nifedipine 60 mg tablet,extended 60 mg PO DAILY 03/13/23 03/13/23 release nitroglycerin 0.4 mg sublingual 0.4 mg sublingual Q5M PRN Chest 03/13/23 03/13/23 tablet Pain ondansetron HCl 4 mg tablet 4 mg PO Q8H PRN Nausea 03/13/23 03/13/23 pantoprazole 40 mg tablet,delayed 40 mg PO DAILY 03/13/23 03/13/23 release polyethylene glycol 3350 17 17 g PO DAILY PRN Constipation 03/13/23 03/13/23 gram/dose oral powder sennosides 8.6 mg-docusate sodium 2 tab PO BID 03/13/23 03/13/23 50 mg tablet (Senna Plus) sertraline 50 mg tablet 50 mg PO DAILY 03/13/23 03/13/23 sevelamer carbonate 800 mg tablet 2,400 mg PO TIDWMEAL 03/13/23 03/13/23 Previous Rx's Medication Instructions Recorded levetiracetam 500 mg tablet 500 mg PO BID #60 tabs 03/16/23 levetiracetam 1,000 mg tablet 1,000 mg PO Q12H 30 days #60 tabs 03/21/23 (Keppra) Allergies Allergy/AdvReac Type Severity Reaction Status Date / Time lorazepam [From Ativan] AdvReac Shakiness Verified 03/20/23 23:33 metoclopramide [From Reglan] AdvReac Nausea Verified 03/20/23 23:33 Review of Systems Review of Systems: Yes all other systems are reviewed and are negative PMFSH Past Medical History Medical History Back pain Bilateral lower extremity pain End stage chronic kidney disease ESRD on dialysis Social History Social History Household Members: Family Household Members Other:: mom, step dad, sister and nephew Housing: House Do you presently have visiting nurse or other home services: No Alcohol intake: never Patient Tobacco Use Status: Never used Tobacco Smoked in Last 30 Days: Yes Substance Use Type: Marijuana Advance Directives: No Advance Directives Information Provided: No service: No Physical Exam Vital Signs: Vital Signs: Last Vital Signs Temp 98.4 F 03/20/23 23:30 Pulse 84 03/21/23 01:00 Resp 18 03/21/23 01:00 BP 137/91 H 03/21/23 01:00 Pulse Ox 98 03/21/23 01:00 O2 Del Method Room Air 03/20/23 23:30 BMI result Body Mass Index 30.7 Const: Other: Awake, alert, male patient, answers questions appropriately, does not appear to be in distress HEENT: Other: The patient does have ecchymosis with a small hematoma to his left lateral forehead, this area is tender to palpation Ears: external ears normal General nose exam: Normal external nose present Face and sinus: Yes normal facial exam Mouth: Normal oral and palatal mucosa present Throat: Yes posterior oropharynx normal Eyes: General: appearance normal, both eyes and all related structures Pupils: Equal, round and reactive pupils present Neck: Other: Patient does have tenderness palpation of his cervical spine diffusely in bilateral trapezius muscle Chest: Chest palpation & inspection: normal inspection of the chest and normal palpation of entire chest wall Resp: Effort & Inspection: normal respiratory effort and able to speak in complete sentences Auscultation: clear to auscultation bilaterally Cardio: Rate: regular rate Rhythm: regular rhythm Heart sounds: S1 normal heart sound present, S2 normal heart sound present and no murmurs GI: Inspection: Yes normal to inspection Palpation (GI): Soft to palpation, nontender and no guarding Auscultation: normal bowel sounds : General: Yes no CVA tenderness Back/Spine/Pelvis: Back: no CVA tenderness Skin: General skin exam: no rashes or lesions noted Neuro: Cranial nerves: Yes CN's II-XII intact bilaterally and Yes Equal, round and reactive pupils present Cognition (Neuro): normal cognition Motor exam (neuro): 5/5 motor strength present throughout Extrem: General: Yes normal to inspection Psych: Appearance: grossly normal Speech and movement: Normal speech and movement present Affect: normal affect Attitude: cooperative Medications Administered Discontinued Medications Generic Name Dose Route Start Last Admin Trade Name Ruth Ann PRN Reason Stop Dose Admin Hydromorphone HCl 1 mg 03/21/23 00:54 03/21/23 01:38 Hydromorphone Hcl 1 Mg/Ml Syringe IVPUSH 03/21/23 00:55 1 mg ONCE STA Administration Protocol Levetiracetam 500 mg in 100 mls @ 400 mls/hr 03/21/23 01:08 03/21/23 02:01 Keppra IV 03/21/23 01:22 Infused ONCE ONE Infusion Medical Decision Making Medical Decision Making [facility] Narrative: 27-year-old male with a history of ADHD, hyperactivity, anemia, anxiety, depression, remote history of drug addiction with IV heroin use disorder-no use in 3 years and marijuana daily use , end-stage renal disease hemodialysis on Wednesdays and Saturday, glomerulonephritis, hematemesis, hypertension, migraines without auras, osteomyelitis of the cervical spine, sleep apnea, lupus who presents emergency department for evaluation syncopal episode. Patient bloo d pressure was elevated 148/102. Patient's exam did reveal hematoma only tenderness palpation of the left lateral forehead as well as tenderness palpation over his neck muscles and cervical spine. His exam was otherwise unremarkable. I ordered the following tests: CBC, CMP, lipase, PT/INR, PTT, 12 EKG, CT scan of the head and cervical spine. I did order Dilaudid 1 mg IV 1st pain and the patient will be given Keppra 500 mg IV for his seizure disorder. I also ordered the nurse to access the patient's right chest Port-A-Cath. 0254: Laboratory evaluation is consistent with his chronic renal failure. CT scan of the brain and cervical spine revealed no acute fracture injury. Patient was given Dilaudid 1 mg IV for his pain. Patient was also given Keppra 500 mg IV for possible seizure as the cause of his syncope. Patient will be discharged home. I will increase his Keppra to 1000 mg q.12 hours. Patient will need to follow-up with his PCP and Neurology Differential Diagnosis Differential Diagnoses: The differential diagnosis associated with the presentation includes Differential diagnosis includes but is not limited to skull fracture, cerebral bleed, neck fracture, neck muscle strain, electrolyte abnormality, anemia, seizure disorder Admission/Observation Consideration of admission/observation: Escalation of care including admission/observation considered Lab Data MDM Lab Attestation statement: I reviewed the patient's lab results. My interpretation patient's laboratory evaluation as follows: Anemia with an H&H of 8.5 and 25.7-chronic secondary to renal disease. Thrombocytopenia at 129,000-again chronic secondary chronic renal failure. Elevated BUN 6.27 at baseline-secondary to chronic renal failure. 03/21/23 01:13 03/21/23 01:13 Labs: Lab Results 03/21/23 03/21/23 03/21/23 Range/Units 01:13 01:13 01:13 WBC 8.3 (4.8-10.8) X10*3/uL RBC 2.88 L (4.60-5.80) X10*6/uL Hgb 8.5 L (14.0-18.0) g/dl Hct 25.7 L (42.0-52.0) % MCV 89.2 (80.0-98.0) fL MCH 29.5 (27.0-33.0) pg MCHC 33.1 (31.0-36.0) g/dl RDW 13.6 (11.0-16.0) % Plt Count 129 L (160-400) X10*3/uL MPV 9.6 (9.4-12.4) fL Immature Gran % (Auto) 0.4 (0.0-0.4) % Neut % (Auto) 71.8 (45-73) % Lymph % (Auto) 10.5 L (20-40) % [place] % (Auto) 11.3 H (2-11) % Eos % (Auto) 5.5 H (0-4) % Baso % (Auto) 0.5 (0-2) % Lymph # (Auto) 0.9 L (1.2-4.9) X10*3/uL [place] # (Auto) 0.9 (0.1-1.2) X10*3/uL Eos # (Auto) 0.5 H (0.0-0.4) X10*3/uL Baso # (Auto) 0.0 (0.0-0.2) X10*3/uL Abs Immat Gran (auto) 0.03 (0.00-0.03) X10*3/uL Absolute Neuts (auto) 6.0 (2.0-8.3) x10*3/uL Absolute Nucleated RBC 0.000 (0.0-0.012) X10*3/uL Nucleated RBC % (auto) 0.0 (0.0-0.2) /100WBC PT 10.8 (10.0-13.1) SEC INR 0.9 (0.9-1.1) APTT 50.2 H D (26.0-36.4) SEC Sodium 142 (135-145) mmol/L Potassium 3.7 (3.3-5.1) mmol/L Chloride 102 (96-108) mmol/L Carbon Dioxide 29 (22-29) mmol/L Anion Gap 15 (12-20) BUN 15 (9-16) mg/dL Creatinine 6.27 H* (0.5-1.4) mg/dL Estim Creat Clear Calc 21.7 Estimated GFR 11 Random Glucose 90 (60-115) mg/dL Calcium 9.0 (8.4-10.2) mg/dL Total Bilirubin 0.6 (0.0-1.0) mg/dL AST 10 (5-37) U/L ALT 10 (0-40) U/L Alkaline Phosphatase 46 (39-117) U/L Total Protein 5.4 L (6.5-8.0) g/dL Albumin 3.3 L (3.5-5.0) g/dL Independent Interpretation I performed an independent interpretation of an: EKG Interpretation: My independent interpretation of the patient's 12 EKG done at 00:58 hours is as follows: Normal sinus rhythm with a rate of 73, normal [place] interval, QRS duration QTC interval, no ST segment elevation, no ST segment depression, no T- wave abnormalities, no PACs, no PVCs. This is a normal EKG. EKG is unchanged compared to 03/19/2023. Radiology Impression Discussion of test interpretation with radiology: I have reviewed the radiologist's reading. Radiologist Impression: CT cervical spine wo IV con and CT head/brain wo IV con IMPRESSION: No acute findings identified in the head or cervical spine. Dictated By:Baldemar Orosco MD Independent Historian Clinical information obtained from an independent historian. History obtained from or confirmed by: EMS External Record Review External record reviewed: Inpatient record Chronic Conditions Patient?s care impacted by: Other (End-stage renal disease, hypertension, seizure disorder) Discharge Plan Discharge Clinical Impression: Seizure Fall Qualifiers: Encounter type: initial encounter Qualified Code(s): W19.XXXA - Unspecified fall, initial encounter Closed head injury Qualifiers: Encounter type: initial encounter Qualified Code(s): S09.90XA - Unspecified injury of head, initial encounter Acute neck sprain Qualifiers: Encounter type: initial encounter Qualified Code(s): S13.9XXA - Sprain of joints and ligaments of unspecified parts of neck, initial encounter Patient Disposition: Home, Self-Care Instructions: Recurrent Seizures in Adults (ED) Additional Instructions: Your blood work was consistent with your kidney disease. The CT scan of your brain and neck did not reveal an broken bones/fractures At this time, I believe that your passing out was caused by your seizure disorder. You were given Keppra 500 mg IV to try to prevent you from having further seizures. You also received Dilaudid 1 mg IV x2 doses for your pain. I am increasing your Keppra( levetiracetam) to 1000 mg every 12 hours. Until you get this prescription filled you can take 2 of your 500 mg pills twice a day. Follow-up with your neurology in 1 week Please return to the emergency department if your symptoms get worse or if you develop any symptoms that are concerning to you. Prescriptions: New levetiracetam [Keppra] 1,000 mg tablet 1,000 mg PO Q12H 30 Days Qty: 60 0RF No Action carvedilol 25 mg tablet 25 mg PO BID atorvastatin 20 mg tablet 20 mg PO DAILY ondansetron HCl 4 mg tablet 4 mg PO Q8H PRN (Reason: Nausea) sennosides-docusate sodium [Senna Plus] 8.6-50 mg tablet 2 tab PO BID hydralazine 25 mg tablet 25 mg PO TID acetaminophen 500 mg tablet 1,000 mg PO TID PRN (Reason: pain) alprazolam 0.5 mg tablet 0.5 mg PO BID PRN (Reason: anxiety) clonidine HCl 0.2 mg tablet 0.2 mg PO DAILY PRN (Reason: Blood Pressure) pantoprazole 40 mg tablet,delayed release (DR/EC) 40 mg PO DAILY nitroglycerin 0.4 mg tablet, sublingual 0.4 mg sublingual Q5M PRN (Reason: Chest Pain) calcium carbonate 500 mg calcium (1,250 mg) Tablet,Chewable 500 mg PO DAILY clonidine 0.3 mg/24 hr patch weekly 1 patch topical QWEEK gabapentin 100 mg capsule 200 mg PO BID polyethylene glycol 3350 17 gram/dose powder 17 g PO DAILY PRN (Reason: Constipation) nifedipine 60 mg tablet extended release 60 mg PO DAILY losartan 100 mg tablet 100 mg PO DAILY sertraline 50 mg tablet 50 mg PO DAILY cinacalcet 90 mg Tablet 90 mg PO MOWEFR lactulose 10 gram/15 mL solution 15 ml PO DAILY PRN (Reason: Constipation) sevelamer carbonate 800 mg tablet 2,400 mg PO TIDWMEAL hydrocortisone 0.5 % Cream 1 appl TOPICAL DAILY PRN (Reason: Rash) Rx Instructions: face calcitriol 0.5 mcg Capsule 0.5 mcg PO MOWEFR Rx Instructions: administer after dialysis on dialysis days ergocalciferol (vitamin D2) [Vitamin D2] 1,250 mcg (50,000 unit) Capsule 1,250 mcg PO FR ketoconazole 2 % Cream 1 appl TOPICAL DAILY PRN (Reason: Rash) Rx Instructions: face levetiracetam 500 mg Tablet 500 mg PO BID Qty: 60 0RF
--- NOTE | 2023-03-21 00:54 | ECG_ITS ---
Test Reason : FALL Blood Pressure : / mmHG Vent. Rate : 073 BPM Atrial Rate : 073 BPM P-R Int : 178 ms QRS Dur : 092 ms QT Int : 400 ms P-R-T Axes : 055 032 059 degrees QTc Int : 440 ms Normal sinus rhythm Normal ECG When compared with ECG of 19-MAR-2023 23:45, No significant change was found Referred By: Stefan Medina Electronically Signed By:Juvencio Vila
[2023-03-21 01:00] VITALS: BP 137/91; PULSE 84; RESP 18; O2SAT 98
[2023-03-21 01:20] LABS: Basophils Percent Auto 0.5 % (0-2); Eosinophils Absolute Auto 0.5 X10*3/uL (0.0-0.4); Eosinophils Percent Auto 5.5 % (0-4); Hematocrit 25.7 % (42.0-52.0); Hemoglobin 8.5 g/dl (14.0-18.0); Imm Gran Abs Auto 0.03 X10*3/uL (0.00-0.03); Imm Gran Pct Auto 0.4 % (0.0-0.4); Lymphocytes Absolute Auto 0.9 X10*3/uL (1.2-4.9); Lymphocytes Percent Auto 10.5 % (20-40); MANUAL DIFF FLAG NO; Mean Corpuscular HGB Conc 33.1 g/dl (31.0-36.0); Mean Corpuscular Hemoglobin 29.5 pg (27.0-33.0); Mean Corpuscular Volume 89.2 fL (80.0-98.0); Mean Platelet Volume 9.6 fL (9.4-12.4); Monocytes Absolute Auto 0.9 X10*3/uL (0.1-1.2); Monocytes Percent Auto 11.3 % (2-11); Neutrophils Percent Auto 71.8 % (45-73); Platelet Count 129 X10*3/uL (160-400); Red Blood Count 2.88 X10*6/uL (4.60-5.80); Red Cell Distribution Width 13.6 % (11.0-16.0); White Blood Count 8.3 X10*3/uL (4.8-10.8)
[2023-03-21 01:26] LABS: INTERNATIONAL NORM RATIO 0.9 (0.9-1.1); Prothrombin Time 10.8 SEC (10.0-13.1)
[2023-03-21 01:29] LABS: Partial Thromboplastin Time 50.2 SEC (26.0-36.4)
[2023-03-21 01:38] LABS: Alanine Aminotransferase 10 U/L (0-40); Albumin Level 3.3 g/dL (3.5-5.0); Alkaline Phosphatase 46 U/L (39-117); Anion Gap 15 (12-20); Aspartate Amino Transferase 10 U/L (5-37); Bilirubin Total 0.6 mg/dL (0.0-1.0); Blood Urea Nitrogen 15 mg/dL (9-16); Carbon Dioxide 29 mmol/L (22-29); Chloride 102 mmol/L (96-108); Creatinine Clr Calc Pharmacy 21.7; Estimated Glomerular Filt Rate 11; Glucose Random 90 mg/dL (60-115); Potassium 3.7 mmol/L (3.3-5.1); Sodium 142 mmol/L (135-145); Total Protein 5.4 g/dL (6.5-8.0)
[2023-03-21] MEDS: HYDROmorphone HCl 1 MG/ML SYRINGE IVPUSH ×2 (01:38→03:25)
[2023-03-21] MEDS: levETIRAcetam in NaCl (iso-os) 500 MG/100 ML PIGGYBACK 400 MG IV (01:38)
[2023-03-21 03:12] VITALS: BP 129/91; PULSE 90; O2SAT 96
[2023-03-21 03:24] VITALS: BP 126/84; PULSE 93; RESP 15; O2SAT 96
== END 2023-03-21 04:07 | disposition home or self-care (01) ==
PROVIDERS: Emergency Provider Emergency Medicine Emergency Medical Services; PCP Nurse Practitioner Family
DX: R56.9 Unspecified convulsions (principal); S09.90XA Unspecified injury of head, initial encounter; S13.9XXA Sprain of joints and ligaments of unspecified parts of neck, initial encounter; W18.30XA Fall on same level, unspecified, initial encounter; Y93.89 Activity, other specified; Y92.89 Other specified places as the place of occurrence of the external cause; Y99.9 Unspecified external cause status; R51.9 Headache, unspecified; I12.0 Hypertensive chronic kidney disease with stage 5 chronic kidney disease or end stage renal disease; N18.6 End stage renal disease; Z99.2 Dependence on renal dialysis; M32.9 Systemic lupus erythematosus, unspecified; M86.9 Osteomyelitis, unspecified; Z79.899 Other long term (current) drug therapy
CPT/HCPCS: 36415; 70450; 72125; 80053; 85025; 85610; 85730; 93005; 96365; 96375; 96376; 99284; 99285; J1170; J1953

== ENCOUNTER 2023-03-22 11:29 | Inpatient (IN) | payer OTHER, SELFPAY ==
[2023-03-22] VITALS (11 sets, daily range): BP systolic 136–192; BP diastolic 84–117; PULSE 67–97; RESP 12–18; TEMP 36.6–36.7; O2SAT 97–99; BMI 30.2; BMI 29.6
--- NOTE | ~2023-03-22 | CT_ITS ---
EXAMINATION: CT HEAD WITHOUT CONTRAST CLINICAL INFORMATION: Head trauma, syncope COMPARISON: Examination of the previous day. TECHNIQUE: Contiguous axial imaging was performed from the skull base to vertex without intravenous administration of contrast. This CT examination was performed using dose optimization techniques as appropriate, variously including the following: *Automated exposure control *Adjustment of mA and/or kV according to patient size (this includes techniques or standardized protocols for targeted exams where dose is matched to indication/reason for exam; i.e. extremities or head) *Use of iterative reconstruction technique DLP: 691 mGy-cm FINDINGS: No definite evidence for acute hemorrhage or mass effect. Cisterns are unremarkable. No appreciable blood in the lateral ventricles. Right frontal lobe calcifications again seen. Bruce/white matter differentiation is maintained. No appreciable extra-axial collections. The mastoids are well aerated. Skull base unremarkable. The zygomas are intact. There is no appreciable calvarial disruption. CT/CT head/brain wo IV con IMPRESSION: No evidence for acute process. No significant change since the previous examination.
--- NOTE | ~2023-03-22 | CT_ITS ---
EXAMINATION: CT CERVICAL SPINE WITHOUT CONTRAST CLINICAL INFORMATION: Neck pain, status post syncope COMPARISON: Examination of the previous day. TECHNIQUE: Axial sections performed without IV contrast enhancement. Sagittal and coronal reconstructions performed. This CT examination was performed using dose optimization techniques as appropriate, variously including the following: *Automated exposure control *Adjustment of mA and/or kV according to patient size (this includes techniques or standardized protocols for targeted exams where dose is matched to indication/reason for exam; i.e. extremities or head) *Use of iterative reconstruction technique DLP: 488 mGy-cm FINDINGS: The odontoid and the condyles are unremarkable. C1 and C2 arches intact. Anterolisthesis C2-C3 again observed. Degenerative disc space narrowing and spondylitic change C2 3-4 again seen, appearing stable. No new cervical compression fracture. There is mild facet arthrosis. Spinous processes and facets intact. Epiglottis and vocal cords unremarkable. No suspiciously enlarged adenopathy. Thyroid appears stable. Bilateral central lines in position. CT/CT cervical spine wo IV con IMPRESSION: 1. No evidence for acute bony fracture. 2. Degenerative changes as noted above. 3. Other incidental findings as noted above.
--- NOTE | 2023-03-22 12:24 | ECG_ITS ---
Test Reason : SYNCOPE Blood Pressure : / mmHG Vent. Rate : 069 BPM Atrial Rate : 069 BPM P-R Int : 178 ms QRS Dur : 090 ms QT Int : 400 ms P-R-T Axes : 041 006 036 degrees QTc Int : 428 ms Normal sinus rhythm Normal ECG When compared with ECG of 21-MAR-2023 00:58, No significant change was found Referred By: Jessenia Madrigal Electronically Signed By:Juvencio Vila
--- NOTE | 2023-03-22 12:48 | ED_ITS ---
HPI - Syncope General Chief Complaint: Syncope Stated Complaint: fall w/ head strike, weakness, neck pain, ABDI Time Seen by Provider: 03/22/23 12:16 Source: patient, EMS and old records reviewed Mode of arrival: EMS Limitations: no limitations History of Present Illness HPI narrative: 27-year-old male with a history of ADHD, anemia, anxiety, depression, remote history of drug addiction with IV heroin use disorder-no use in 3 years and marijuana daily use , ESRD on PD xlast 4-5 years now on HD the last 1 month, hx glomerulonephritis, hematemesis, HTN , migraines without auras, osteomyelitis of the cervical spine, sleep apnea, lupus?who presents to the ER via EMS from [facility] where he had a syncopal episode. Patient states he was sitting down in the dialysis waiting room and leaned forward to grab something out of his bag. He then lost consciousness and woke up on the floor. Reports hitting his head on the ground. Did not feel light headed or dizzy before losing consciousness. In ED he reports headache, left lateral neck pain, nausea without vomiting. No chest pain or abdominal pain. No reports of seizure activity or postictal state. On M/W/F dialysis, did not get dialyzed today. Patient recently admitted here for similar episode, seen by neurology. Brain MRI and EEG were obtained suggesting underlying tendency for frontal lobe seizure disorder. Patient was started on Keppra. complaint: loss of consciousness Onset (ago): hour(s) Context: at rest Injuries sustained associated with event: face Related Data Home Medications Medication Instructions Recorded Confirmed acetaminophen 500 mg tablet 1,000 mg PO TID PRN pain 03/13/23 03/13/23 alprazolam 0.5 mg tablet 0.5 mg PO BID PRN anxiety 03/13/23 03/13/23 atorvastatin 20 mg tablet 20 mg PO DAILY 03/13/23 03/13/23 calcitriol 0.5 mcg capsule 0.5 mcg PO MOWEFR 03/13/23 03/13/23 calcium carbonate 500 mg calcium 500 mg PO DAILY 03/13/23 03/13/23 (1,250 mg) chewable tablet carvedilol 25 mg tablet 25 mg PO BID 03/13/23 03/13/23 cinacalcet 90 mg tablet 90 mg PO MOWEFR 03/13/23 03/13/23 clonidine 0.3 mg/24 hr weekly 1 patch topical QWEEK 03/13/23 03/13/23 transdermal patch clonidine HCl 0.2 mg tablet 0.2 mg PO DAILY PRN Blood Pressure 03/13/23 03/13/23 ergocalciferol (vitamin D2) 1,250 1,250 mcg PO FR 03/13/23 03/13/23 mcg (50,000 unit) capsule (Vitamin D2) gabapentin 100 mg capsule 200 mg PO BID 03/13/23 03/13/23 hydralazine 25 mg tablet 25 mg PO TID 03/13/23 03/13/23 hydrocortisone 0.5 % topical cream 1 appl topical DAILY PRN Rash 03/13/23 03/13/23 ketoconazole 2 % topical cream 1 appl topical DAILY PRN Rash 03/13/23 03/13/23 lactulose 10 gram/15 mL oral 15 ml PO DAILY PRN Constipation 03/13/23 03/13/23 solution losartan 100 mg tablet 100 mg PO DAILY 03/13/23 03/13/23 nifedipine 60 mg tablet,extended 60 mg PO DAILY 03/13/23 03/13/23 release nitroglycerin 0.4 mg sublingual 0.4 mg sublingual Q5M PRN Chest 03/13/23 03/13/23 tablet Pain ondansetron HCl 4 mg tablet 4 mg PO Q8H PRN Nausea 03/13/23 03/13/23 pantoprazole 40 mg tablet,delayed 40 mg PO DAILY 03/13/23 03/13/23 release polyethylene glycol 3350 17 17 g PO DAILY PRN Constipation 03/13/23 03/13/23 gram/dose oral powder sennosides 8.6 mg-docusate sodium 2 tab PO BID 03/13/23 03/13/23 50 mg tablet (Senna Plus) sertraline 50 mg tablet 50 mg PO DAILY 03/13/23 03/13/23 sevelamer carbonate 800 mg tablet 2,400 mg PO TIDWMEAL 03/13/23 03/13/23 Previous Rx's Medication Instructions Recorded levetiracetam 500 mg tablet 500 mg PO BID #60 tabs 03/16/23 levetiracetam 1,000 mg tablet 1,000 mg PO Q12H 30 days #60 tabs 03/21/23 (Keppra) Allergies Allergy/AdvReac Type Severity Reaction Status Date / Time lorazepam [From Ativan] AdvReac Shakiness Verified 03/20/23 23:33 metoclopramide [From Reglan] AdvReac Nausea Verified 03/20/23 23:33 Review of Systems Review of Systems: Yes all other systems are reviewed and are negative [facility] Past Medical History Attestation statement: The following information was validated with the patient. Source: old records reviewed and nursing notes reviewed Medical History Back pain Bilateral lower extremity pain End stage chronic kidney disease ESRD on dialysis Social History Social History Household Members: Family Household Members Other:: mom, step dad, sister and nephew Housing: House Do you presently have visiting nurse or other home services: No Alcohol intake: never Patient Tobacco Use Status: Never used Tobacco Substance Use Type: Marijuana Advance Directives: No Advance Directives Information Provided: No service: No Physical Exam Vital Signs: Vital Signs: Last Vital Signs Temp 98.1 F 03/22/23 11:36 Pulse 76 03/22/23 14:46 Resp 14 03/22/23 14:46 BP 155/104 H 03/22/23 14:46 Pulse Ox 99 03/22/23 14:46 O2 Del Method Room Air 03/22/23 14:46 BMI result Body Mass Index 30.2 Appearance: Alert. Oriented X3. No acute distress. Patient lying in bed with cervical collar in place. Head: normocephalic. Bruise to middle forehead, healing bruise noted to left periorbital region. Eyes: Pupils equal, round and reactive to light. ENT: Pharynx normal. No tonsillar swelling or exudate. Neck: Normal inspection. Neck supple. CVS: Normal heart rate and rhythm. Pulses normal. Respiratory: No respiratory distress. Breath sounds normal. Abdomen: Soft and nontender. +BS x4 Skin: Skin warm and dry. Normal skin color. Normal skin turgor. No rashes. Extremities: No lower extremity edema. No joint swelling. Anterior quadriceps soft but TTP. Neuro/psych: Oriented X 3. No motor deficit. No sensory deficit. B/l LE are equally weak, barely able to lift off the bed. Normal speech and cognition. Medications Administered Discontinued Medications Generic Name Dose Route Start Last Admin Trade Name Ruth Ann PRN Reason Stop Dose Admin Acetaminophen 975 mg 03/22/23 13:14 03/22/23 13:38 Acetaminophen 325 Mg Tablet PO 03/22/23 13:15 975 mg ONCE ONE Administration Ondansetron HCl 4 mg 03/22/23 13:14 03/22/23 13:38 Ondansetron Odt 4 Mg Tab.Rapdis TRANSLINGU 03/22/23 13:15 4 mg ONCE ONE Administration Medical Decision Making Medical Decision Making MDM Narrative: 27-year-old male with a history of ADHD, anemia, anxiety, depression, remote history of drug addiction with IV heroin use disorder-no use in 3 years and m arijuana daily use , ESRD on PD xlast 4-5 years now on HD the last 1 month, hx glomerulonephritis, hematemesis, HTN , migraines without auras, osteomyelitis of the cervical spine, sleep apnea, lupus?who presents to the ER via EMS from his [facility] where he had a syncopal episode. Vital signs notable for elevated blood pressure, otherwise within normal limits. Plan: labs, EKG, ct c spine/ head, pain control Patient's workup unremarkable, labs stable, no need for emergent HD today. Concerned about his recurrent syncope despite being started on keppra for +EEG. Question ongoing seizures vs cardiac etiology. will require admission for further evaluation and treatment. Differential Diagnosis Differential Diagnoses: The differential diagnosis associated with the presentation includes (cardiac arrhythmia, electrolyte abnormalities, hypotension, seizure, worsening anemia) Admission/Observation Consideration of admission/observation: Escalation of care including admission/o bservation considered (This 27 year old male with extensive medical history on HD with syncopal episode and recently dx seizures will be admitted.) Consult Healthcare Provider Management of the patient was discussed with: Hospitalist ([facility] ) Lab Data [facility] Lab Attestation statement: I reviewed the patient's lab results. Notable for chronic anemia. ESRD without significant electrolyte abnormalities 03/22/23 13:12 03/22/23 13:12 Labs: Lab Results 03/22/23 03/22/23 Range/Units 13:12 13:12 WBC 9.5 (4.8-10.8) X10*3/uL RBC 2.93 L (4.60-5.80) X10*6/uL Hgb 8.6 L (14.0-18.0) g/dl Hct 25.9 L (42.0-52.0) % MCV 88.4 (80.0-98.0) fL MCH 29.4 (27.0-33.0) pg MCHC 33.2 (31.0-36.0) g/dl RDW 13.4 (11.0-16.0) % Plt Count 135 L (160-400) X10*3/uL MPV 9.5 (9.4-12.4) fL Immature Gran % (Auto) 0.4 (0.0-0.4) % Neut % (Auto) 79.2 H (45-73) % Lymph % (Auto) 7.0 L (20-40) % [place] % (Auto) 9.8 (2-11) % Eos % (Auto) 3.2 (0-4) % Baso % (Auto) 0.4 (0-2) % Lymph # (Auto) 0.7 L (1.2-4.9) X10*3/uL [place] # (Auto) 0.9 (0.1-1.2) X10*3/uL Eos # (Auto) 0.3 (0.0-0.4) X10*3/uL Baso # (Auto) 0.0 (0.0-0.2) X10*3/uL Abs Immat Gran (auto) 0.04 H (0.00-0.03) X10*3/uL Absolute Neuts (auto) 7.5 (2.0-8.3) x10*3/uL Absolute Nucleated RBC 0.000 (0.0-0.012) X10*3/uL Nucleated RBC % (auto) 0.0 (0.0-0.2) /100WBC Sodium 143 (135-145) mmol/L Potassium 4.2 (3.3-5.1) mmol/L Chloride 103 (96-108) mmol/L Carbon Dioxide 27 (22-29) mmol/L Anion Gap 17 (12-20) BUN 31 H (9-16) mg/dL Creatinine 10.31 H* (0.5-1.4) mg/dL Estim Creat Clear Calc 13.1 Estimated GFR 6 Random Glucose 91 (60-115) mg/dL Calcium 9.5 (8.4-10.2) mg/dL Phosphorus 5.0 H (2.7-4.5) mg/dL Magnesium 2.2 (1.6-2.6) mg/dL Total Bilirubin 0.6 (0.0-1.0) mg/dL Direct Bilirubin 0.1 (0.0-0.5) mg/dL AST 9 (5-37) U/L ALT 7 (0-40) U/L Alkaline Phosphatase 49 (39-117) U/L Total Creatine Kinase 29 L (38-174) U/L Total Protein 5.5 L (6.5-8.0) g/dL Albumin 3.4 L (3.5-5.0) g/dL Ethyl Alcohol < 10 mg/dL Independent Interpretation I performed an independent interpretation of an: EKG (Normal sinus rhythm with rate of 69 bpm, no QT prolongation, no ST or T wave changes) and CT Scan (CT head: no intracerebral bleed or edema, CT neck: no obvious fracture, agree with radiologist's read) Radiology Impression Discussion of test interpretation with radiology: I have reviewed the radiologist's reading. Radiologist Impression: CT head/brain wo IV con IMPRESSION: No evidence for acute process. No significant change since the previous examination CT cervical spine wo IV con IMPRESSION: 1.? No evidence for acute bony fracture. 2.? Degenerative changes as noted above. 3.? Other incidental findings as noted above. Independent Historian Clinical information obtained from an independent historian. History obtained from or confirmed by: EMS External Record Review External record reviewed: Inpatient record, Office record, Outpatient record, Prior outpatient labs and Prior outpatient radiology Tests considered The following testing was considered but not selected: CTA considered - PE less likely etiology Prescription Management I considered prescription management with: Pain Medication and Other (antiepileptic) Chronic Conditions Patient?s care impacted by: Other (ESRD, anemia, seizures, lupus) Social Determinants Patient?s care significantly limited by Social Determinants of Health including: Other Social Determinant of Health Critical Care Time Critical Care Time Critical Care Time: Yes Total Critical Care Time: 35 Attestation: I have personally provided critical care time exclusive of time spent on separately billable procedures. Time includes review of lab data, radiology results, discussion with consultants, and monitoring for potential deco mpensation. Intervention performed as documented. Discharge Plan Discharge Clinical Impression: Recurrent syncope Patient Disposition: Admitted As Inpatient clonidine HCl 0.2 mg tablet 0.2 mg PO DAILY PRN (Reason: Blood Pressure) pantoprazole 40 mg tablet,delayed release (DR/EC) 40 mg PO DAILY nitroglycerin 0.4 mg tablet, sublingual 0.4 mg sublingual Q5M PRN (Reason: Chest Pain) calcium carbonate 500 mg calcium (1,250 mg) Tablet,Chewable 500 mg PO DAILY clonidine 0.3 mg/24 hr patch weekly 1 patch topical QWEEK gabapentin 100 mg capsule 200 mg PO BID polyethylene glycol 3350 17 gram/dose powder 17 g PO DAILY PRN (Reason: Constipation) nifedipine 60 mg tablet extended release 60 mg PO DAILY losartan 100 mg tablet 100 mg PO DAILY sertraline 50 mg tablet 50 mg PO DAILY cinacalcet 90 mg Tablet 90 mg PO MOWEFR lactulose 10 gram/15 mL solution 15 ml PO DAILY PRN (Reason: Constipation) sevelamer carbonate 800 mg tablet 2,400 mg PO TIDWMEAL hydrocortisone 0.5 % Cream 1 appl TOPICAL DAILY PRN (Reason: Rash) Rx Instructions: face calcitriol 0.5 mcg Capsule 0.5 mcg PO MOWEFR Rx Instructions: administer after dialysis on dialysis days ergocalciferol (vitamin D2) [Vitamin D2] 1,250 mcg (50,000 unit) Capsule 1,250 mcg PO FR ketoconazole 2 % Cream 1 appl TOPICAL DAILY PRN (Reason: Rash) Rx Instructions: face levetiracetam 500 mg Tablet 500 mg PO BID Qty: 60 0RF levetiracetam [Keppra] 1,000 mg tablet 1,000 mg PO Q12H 30 Days Qty: 60 0RF
[2023-03-22 13:19] LABS: MANUAL DIFF FLAG NO
--- NOTE | 2023-03-22 13:19 | PC.NURSE ---
accessed patients power port, good blood return. labs sent, pt tolerated procedure well
[2023-03-22 13:22] LABS: Basophils Percent Auto 0.4 % (0-2); Eosinophils Absolute Auto 0.3 X10*3/uL (0.0-0.4); Eosinophils Percent Auto 3.2 % (0-4); Hematocrit 25.9 % (42.0-52.0); Hemoglobin 8.6 g/dl (14.0-18.0); Imm Gran Abs Auto 0.04 X10*3/uL (0.00-0.03); Imm Gran Pct Auto 0.4 % (0.0-0.4); Lymphocytes Absolute Auto 0.7 X10*3/uL (1.2-4.9); Mean Corpuscular HGB Conc 33.2 g/dl (31.0-36.0); Mean Corpuscular Hemoglobin 29.4 pg (27.0-33.0); Mean Corpuscular Volume 88.4 fL (80.0-98.0); Mean Platelet Volume 9.5 fL (9.4-12.4); Monocytes Absolute Auto 0.9 X10*3/uL (0.1-1.2); Monocytes Percent Auto 9.8 % (2-11); Neutrophils Absolute Auto 7.5 x10*3/uL (2.0-8.3); Neutrophils Percent Auto 79.2 % (45-73); Platelet Count 135 X10*3/uL (160-400); Red Blood Count 2.93 X10*6/uL (4.60-5.80); Red Cell Distribution Width 13.4 % (11.0-16.0); White Blood Count 9.5 X10*3/uL (4.8-10.8)
[2023-03-22] MEDS: Acetaminophen 325 MG TABLET 975 MG PO (13:38)
[2023-03-22] MEDS: Ondansetron ODT 4 MG TAB.RAPDIS TRANSLINGU (13:38)
--- NOTE | 2023-03-22 13:40 | PC.NURSE ---
pt requested pain medication and nausea medication, provided pt tylenol and zofran as ordered by PA
[2023-03-22 14:01] LABS: Alanine Aminotransferase 7 U/L (0-40); Albumin Level 3.4 g/dL (3.5-5.0); Alkaline Phosphatase 49 U/L (39-117); Anion Gap 17 (12-20); Aspartate Amino Transferase 9 U/L (5-37); Bilirubin Direct 0.1 mg/dL (0.0-0.5); Bilirubin Total 0.6 mg/dL (0.0-1.0); Blood Urea Nitrogen 31 mg/dL (9-16); Calcium 9.5 mg/dL (8.4-10.2); Carbon Dioxide 27 mmol/L (22-29); Chloride 103 mmol/L (96-108); Creatinine Clr Calc Pharmacy 13.1; Estimated Glomerular Filt Rate 6; Ethanol < 10 mg/dL; Glucose Random 91 mg/dL (60-115); Magnesium 2.2 mg/dL (1.6-2.6); Potassium 4.2 mmol/L (3.3-5.1); Sodium 143 mmol/L (135-145); Total Protein 5.5 g/dL (6.5-8.0)
[2023-03-22] MEDS: HYDROmorphone HCl 0.5 MG/0.5 ML SYRINGE IVPUSH (15:16)
--- NOTE | 2023-03-22 15:31 | P.HPHOSP_ITS ---
History of Present Illness Date of Service: 03/22/23 Attending physician on admission: Jhon Espinoza Chief Complaint: syncope 27-year-old male with a history of ADHD, hyperactivity, anemia, anxiety, depression, remote history of drug addiction with IV heroin use disorder-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 He was admitted last week for similar episode and had positive EEG and was started on keppra. Two days ago was at home and experienced syncopal episode. This morning went to dialysis and prior to dialysis initiation felt lightheaded as he bent to grab something in his bag and syncopized, falling to the floor and hit head with LOC for unknown duration. Denies any palpitations, sob, chest pain, visual changes at the time. After the fall, complaining of left neck pain into the left upper trap. States for the last week had felt fatigued and generally week. Also notes leg cramping in legs bilaterally for the last month. As result of syncope, he was unable to be dialyzed this morning. On arrival, vital stable except for hypertension at 155/104. There is no leukocytosis. H/H 8.6/25.9%, platelets 135. Creatinine 10.31, BUN 31, electrolyte levels normal except for elevated phosphorus 5.0. Total CK 27. Etoh negative. Head CT negative for any acute abnormality. Cervical spine CT negative for any acute fracture or subluxation but degenerativ e changes are noted. He did have echocardiogram performed last week without any significant valvular abnormality or LV dysfunction. There were no wall motion abnormalities. Review of Systems Review of Systems: General: No fevers, malaise, unintentional weight loss. +fatigue, +generalized weakness HEENT: No blurred vision, diplopia. No sore throat, nasal congestion, rhinorrhea, sinus pain, ear pain Cardiovascular: No chest pain, palpitations, or leg edema Respiratory: No shortness of breath, wheezing, cough GI: No abdominal pain, nausea, vomiting, diarrhea, constipation, melena, hematochezia : No dysuria, hematuria, increased urinary frequency, decreased urinary output MSK: No myalgia, back pain. +neck pain, +leg pain Neuro: No headaches, weakness, paresthesias Skin: No rashes or lesions [facility] Medical History Back pain Bilateral lower extremity pain End stage chronic kidney disease ESRD on dialysis Seizure disorder Social History Household Members: Family Household Members Other:: mom, step dad, sister and nephew Housing: House Do you presently have visiting nurse or other home services: No Alcohol intake: never Patient Tobacco Use Status: Never used Tobacco Substance Use Type: Marijuana Advance Directives: No Advance Directives Information Provided: No service: No Meds Allergies Allergy/AdvReac Type Severity Reaction Status Date / Time lorazepam [From Ativan] AdvReac Shakiness Verified 03/20/23 23:33 metoclopramide [From Reglan] AdvReac Nausea Verified 03/20/23 23:33 Active Medications: Current Medications Acetaminophen (Acetaminophen 325 Mg Tablet) 650 mg PO Q6H PRN PRN Reason: Pain, Mild (Pain Scale 1-3) Docusate Sodium (Docusate Sodium 100 Mg Capsule) 100 mg PO DAILY PRN PRN Reason: Constipation Heparin Sodium (Porcine) (Heparin Sodium,Porcine 5,000 Unit/Ml Vial) 5,000 unit SUBCUT Q12H DENZEL Ondansetron HCl (Ondansetron Hcl 4 Mg/2 Ml Vial) 4 mg IVPUSH Q8H PRN PRN Reason: Nausea and Vomiting Pharmacy Consult (Consult Rx Perform Med Rec) 1 each MISCELLANE ONCE PRN PRN Reason: Consult order Home Medications Medication Instructions Recorded Confirmed Last Taken Type acetaminophen 500 mg tablet 1,000 mg PO TID PRN pain 03/13/23 03/13/23 Unknown History alprazolam 0.5 mg tablet 0.5 mg PO BID PRN anxiety 03/13/23 03/13/23 Unknown History atorvastatin 20 mg tablet 20 mg PO DAILY 03/13/23 03/13/23 Unknown History calcitriol 0.5 mcg capsule 0.5 mcg PO MOWEFR 03/13/23 03/13/23 Unknown History calcium carbonate 500 mg calcium 500 mg PO DAILY 03/13/23 03/13/23 Unknown History (1,250 mg) chewable tablet carvedilol 25 mg tablet 25 mg PO BID 03/13/23 03/13/23 Unknown History cinacalcet 90 mg tablet 90 mg PO MOWEFR 03/13/23 03/13/23 Unknown History clonidine 0.3 mg/24 hr weekly 1 patch topical QWEEK 03/13/23 03/13/23 Unknown History transdermal patch clonidine HCl 0.2 mg tablet 0.2 mg PO DAILY PRN Blood Pressure 03/13/23 03/13/23 Unknown History ergocalciferol (vitamin D2) 1,250 1,250 mcg PO FR 03/13/23 03/13/23 Unknown History mcg (50,000 unit) capsule (Vitamin D2) gabapentin 100 mg capsule 200 mg PO BID 03/13/23 03/13/23 Unknown History hydralazine 25 mg tablet 25 mg PO TID 03/13/23 03/13/23 Unknown History hydrocortisone 0.5 % topical cream 1 appl topical DAILY PRN Rash 03/13/23 03/13/23 Unknown History ketoconazole 2 % topical cream 1 appl topical DAILY PRN Rash 03/13/23 03/13/23 Unknown History lactulose 10 gram/15 mL oral 15 ml PO DAILY PRN Constipation 03/13/23 03/13/23 Unknown History solution losartan 100 mg tablet 100 mg PO DAILY 03/13/23 03/13/23 Unknown History nifedipine 60 mg tablet,extended 60 mg PO DAILY 03/13/23 03/13/23 Unknown History release nitroglycerin 0.4 mg sublingual 0.4 mg sublingual Q5M PRN Chest 03/13/23 03/13/23 Unknown History tablet Pain ondansetron HCl 4 mg tablet 4 mg PO Q8H PRN Nausea 03/13/23 03/13/23 Unknown History pantoprazole 40 mg tablet,delayed 40 mg PO DAILY 03/13/23 03/13/23 Unknown History release polyethylene glycol 3350 17 17 g PO DAILY PRN Constipation 03/13/23 03/13/23 Unknown History gram/dose oral powder sennosides 8.6 mg-docusate sodium 2 tab PO BID 03/13/23 03/13/23 Unknown History 50 mg tablet (Senna Plus) sertraline 50 mg tablet 50 mg PO DAILY 03/13/23 03/13/23 Unknown History sevelamer carbonate 800 mg tablet 2,400 mg PO TIDWMEAL 03/13/23 03/13/23 Unknown History Physical Exam Vital Signs and Narrative: Vital Signs: Last Vital Signs Temp 98.1 F 03/22/23 11:36 Pulse 76 03/22/23 14:46 Resp 14 03/22/23 14:46 BP 155/104 H 03/22/23 14:46 Pulse Ox 99 03/22/23 14:46 O2 Del Method Room Air 03/22/23 14:46 BMI result Body Mass Index 30.2 Constitutional - Awake and Alert, No apparent distress Eyes - Pupils slightly dilated but PERRLA, EOMI Cardiovascular - S1S2, RRR, No edema Respiratory - Normal lung expansion, Normal respiratory effort, No respiratory distress, CTA bilaterally Gastrointestinal - NT / ND; +BS; No rebound or guarding Extremities - no calf tenderness bilaterally, no swelling Musculoskeletal - Normal inspection, normal ROM. Tenderness to palpation left posterior neck without palpable spasm Skin - Warm/Dry Neurological - Alert & oriented x3, CN II-XII in tact, 5/5 strength BUE and BLE Psychological - Appropriate affect Results Labs 03/22/23 13:12 03/22/23 13:12 Labs: Laboratory Results - last 24 hr 03/22/23 03/22/23 13:12 13:12 MCV 88.4 MCH 29.4 MCHC 33.2 RDW 13.4 Plt Count 135 L MPV 9.5 Immature Gran % (Auto) 0.4 Neut % (Auto) 79.2 H Lymph % (Auto) 7.0 L [place] % (Auto) 9.8 Eos % (Auto) 3.2 Baso % (Auto) 0.4 Lymph # (Auto) 0.7 L [place] # (Auto) 0.9 Eos # (Auto) 0.3 Baso # (Auto) 0.0 Abs Immat Gran (auto) 0.04 H Absolute Neuts (auto) 7.5 Absolute Nucleated RBC 0.000 Nucleated RBC % (auto) 0.0 Anion Gap 17 Estim Creat Clear Calc 13.1 Estimated GFR 6 Random Glucose 91 Calcium 9.5 Phosphorus 5.0 H Magnesium 2.2 Total Bilirubin 0.6 Direct Bilirubin 0.1 AST 9 ALT 7 Alkaline Phosphatase 49 Total Creatine Kinase 29 L Total Protein 5.5 L Albumin 3.4 L Ethyl Alcohol < 10 Imaging Radiologist's Impressions: Impressions Cervical Spine CT 03/22/23 13:10 IMPRESSION: 1. No evidence for acute bony fracture. 2. Degenerative changes as noted above. 3. Other incidental findings as noted above. Head CT 03/22/23 13:10 IMPRESSION: No evidence for acute process. No significant change since the previous examination. Assessment and Plan (1) Recurrent syncope: Status: Acute (2) Seizure disorder: Status: Acute Plan 27-year-old male with a history of ADHD, hyperactivity, anemia, anxiety, depre ssion, remote history of drug addiction with IV heroin use disorder-no use in 3 years and marijuana daily use , end-stage renal disease, glomerulonephritis, hematemesis, hypertension, migraines without auras, osteomyelitis of the cervical spine, sleep apnea, lupus admitted for syncopal episode with ESRD requiring dialysis. #Syncope -suspect neurognic r/t seziure disorder diagnosed last week with EEG showing frontal lobe seizure activity -Continue keppra -Neurology consult -Check orthostatic VS -Discussed with Dr. Espinoza, cardiology consult ordered to assess for cardiogenic etiology -Last echo 03/14 without significnat valvular abnormlity, wall motion abnormality, or systolic/diastolic dysfunction -Lytes normal, no uremia, baseline anemia -Check UA, Urine drug screen -MOnitor on telemetry #ESRD on dilaysis- non oliguric -Creat 10, BUN 30. Lytes normal, except elevated phosphorus 5 -Nephrology consult -continue renvela #Neck pain -s/p syncope. Cervical spine CT negative for fraacture/subluxation but shows ddd -lidocaine patch, tylenol #HTN -continue home meds #Chronic leg pain -continue gabapentin, tylenol #HLD -continue statin #GERD -continue ppi DVT prophylaxis- heparin Full code Patient requires inpatient stay at least 2 midnights for management of syncope and ESRD requiring dialysis and x-ray consultation Time Spent With Patient Time: Total time managing care of this patient today ____ minutes. Quality Stroke Does the patient have a stroke diagnosis?: No VTE Prior VTE?: No VTE Risk Level:: Medical - moderate - high VTE Device Contraindication: Treatment Not Indicated VTE Drug Contraindication: N/A - Med Ordered
[2023-03-22] MEDS: Heparin Sodium,Porcine 5,000 UNIT/ML VIAL 5000 UNIT SUBCUT (16:09)
[2023-03-22] MEDS: Lidocaine 4 % Patch ADH..PATCH 1 PATCH TRANSDERMA (16:11)
--- NOTE | 2023-03-22 16:25 | PC.NURSE ---
called and gave report to [facility] RN, will arrange transport
--- NOTE | 2023-03-22 16:39 | PHA.MEDREC ---
Pharmacy Consult ? Medication Reconciliation Pharmacy has completed the medication reconciliation. Spoke to patient's mother on the phone and spoke to patient to confirm meds. Per patient, nifedipine is 60mg daily, but they have recently picked up a Rx for 120mg daily and have not started it yet. Patient is also now taking Keppra 1000mg BID.
[2023-03-22] MEDS: hydrALAZINE HCl 25 MG TABLET PO (20:44)
[2023-03-22] MEDS: traMADoL HCL 50 MG TABLET PO (20:44)
[2023-03-22] MEDS: Sennosides/Docusate Sodium TABLET 2 TAB PO (20:45)
[2023-03-22] MEDS: Gabapentin 100 MG CAPSULE 200 MG PO (20:45)
[2023-03-22] MEDS: carvediloL 25 MG TABLET PO (20:45)
[2023-03-22] MEDS: levETIRAcetam 1,000 MG TABLET 1000 MG PO (21:29)
[2023-03-22] MEDS: Morphine Sulfate 4 MG/ML CARTRIDGE IVPUSH (22:53)
[2023-03-23] VITALS (12 sets, daily range): BP systolic 136–171; BP diastolic 84–109; PULSE 68–84; RESP 16–20; TEMP 36.2–37.3; O2SAT 96–98
[2023-03-23] MEDS: diphenhydrAMINE HCL 50 MG/ML VIAL IVPUSH (00:14)
[2023-03-23] MEDS: diphenhydrAMINE HCL 50 MG/ML VIAL 25 MG IVPUSH (03:41)
[2023-03-23] MEDS: Heparin Sodium,Porcine 5,000 UNIT/ML VIAL 5000 UNIT SUBCUT (03:42)
[2023-03-23] MEDS: Omeprazole 20 MG CAPSULE.DR PO (05:43)
[2023-03-23 06:25] LABS: MANUAL DIFF FLAG NO
[2023-03-23 06:28] LABS: Basophils Percent Auto 0.4 % (0-2); Eosinophils Absolute Auto 0.3 X10*3/uL (0.0-0.4); Hematocrit 24.1 % (42.0-52.0); Hemoglobin 7.9 g/dl (14.0-18.0); Imm Gran Abs Auto 0.04 X10*3/uL (0.00-0.03); Imm Gran Pct Auto 0.5 % (0.0-0.4); Lymphocytes Absolute Auto 1.1 X10*3/uL (1.2-4.9); Lymphocytes Percent Auto 14.4 % (20-40); Mean Corpuscular HGB Conc 32.8 g/dl (31.0-36.0); Mean Corpuscular Hemoglobin 29.4 pg (27.0-33.0); Mean Corpuscular Volume 89.6 fL (80.0-98.0); Mean Platelet Volume 9.3 fL (9.4-12.4); Monocytes Absolute Auto 0.8 X10*3/uL (0.1-1.2); Monocytes Percent Auto 10.9 % (2-11); Neutrophils Absolute Auto 5.2 x10*3/uL (2.0-8.3); Neutrophils Percent Auto 69.8 % (45-73); Platelet Count 122 X10*3/uL (160-400); Red Blood Count 2.69 X10*6/uL (4.60-5.80); Red Cell Distribution Width 13.3 % (11.0-16.0); White Blood Count 7.5 X10*3/uL (4.8-10.8)
[2023-03-23 06:52] LABS: Anion Gap 16 (12-20); Blood Urea Nitrogen 38 mg/dL (9-16); Calcium 9.3 mg/dL (8.4-10.2); Carbon Dioxide 27 mmol/L (22-29); Chloride 103 mmol/L (96-108); Creatinine Clr Calc Pharmacy 10.6; Estimated Glomerular Filt Rate 5; Glucose Random 116 mg/dL (60-115); Magnesium 2.2 mg/dL (1.6-2.6); Potassium 3.9 mmol/L (3.3-5.1); Sodium 142 mmol/L (135-145)
[2023-03-23] MEDS: Sevelamer Carbonate Tablet 800 MG TABLET 2400 MG PO ×3 (08:10→17:49)
[2023-03-23] MEDS: Atorvastatin Calcium 20 MG TABLET PO (08:11)
[2023-03-23] MEDS: Sennosides/Docusate Sodium TABLET 2 TAB PO ×2 (08:11→20:02)
[2023-03-23] MEDS: Gabapentin 100 MG CAPSULE 200 MG PO ×2 (08:11→20:02)
[2023-03-23] MEDS: levETIRAcetam 1,000 MG TABLET 1000 MG PO ×2 (08:12→20:02)
[2023-03-23] MEDS: carvediloL 25 MG TABLET PO ×2 (08:12→20:02)
[2023-03-23] MEDS: ALPRAZolam 0.5 MG TABLET PO (08:12)
[2023-03-23] MEDS: Losartan Potassium 50 MG TABLET 100 MG PO (08:13)
[2023-03-23] MEDS: hydrALAZINE HCl 25 MG TABLET PO ×2 (08:13→14:49)
[2023-03-23] MEDS: cloNIDine 0.3 MG PATCH.TDWK TRANSDERMA (08:13)
[2023-03-23] MEDS: NIFEdipine ER 60 MG TAB.ER.24 PO (08:13)
[2023-03-23] MEDS: Sertraline HCL 50 MG TABLET PO (08:13)
[2023-03-23] MEDS: Lidocaine 4 % Patch ADH..PATCH 1 PATCH TRANSDERMA (08:14)
[2023-03-23] MEDS: Acetaminophen 325 MG TABLET 650 MG PO ×2 (08:16→15:18)
--- NOTE | 2023-03-23 10:42 | PM.CNCAR ---
History of Present Illness History of Present Illness Date of Service: 03/23/23 Requesting physician: Lemuel Goldstein Chief complaint: recurrent syncope, seizures Narrative: 27-year-old gentleman presenting for syncope. He has end-stage renal disease and started hemodialysis 1 week ago. He was on peritoneal dialysis since 2017. He was admitted with syncope recently and was diagnosed with seizures and was sent home on Keppra. He said he went for hemodialysis and was sitting in a chair before the dialysis could be started. He said he bent down to pick something and then passed out. When he came to [facility] he was in dialysis unit and he remembers everything and did not have any significant confusion afterward. He has no recent chest pains. He is anemic compared to his recent blood workup from end february. Blood pressure is actually elevated. He is due to get dialysis today. He had echocardiography on 03/14/2023 showing left ventricular ejection fraction 60% without any wall motion abnormalities and normal diastolic function. Right ventricular function was low normal and size was normal. No significant valvular disease. EKG reviewed showing sinus rhythm, normal axis, normal EKG, QTC 428 milliseconds. [facility] Past Medical History Medical History Back pain Bilateral lower extremity pain End stage chronic kidney disease ESRD on dialysis Seizure disorder Social History Social History Household Members: Family Household Members Other:: mom, step dad, sister and nephew Housing: House Do you presently have visiting nurse or other home services: No Alcohol intake: never Patient Tobacco Use Status: Never used Tobacco Use of substances other than those prescribed or required for medical reasons: Yes Substance Use Type: Marijuana Substance Use Frequency: Daily Last Used Substance: Days (ago) Currently Displaying Signs/Symptoms of Drug Intoxication Withdrawal: No Any prior treatment program specific to substance use: No Have you been hit, kicked, punched, or otherwise hurt by someone within the past year? If so, by whom?: No Do you feel safe in your current relationship?: No Current Relationship Is there a partner from a previous relationship who is making you feel unsafe now?: No Are you made to feel afraid or neglected: No Spiritual Healthcare Practices: none Uatsdin Healthcare Practices: none Cultural Healthcare Practices: none Advance Directives: No Advance Directives Information Provided: No Do you have thoughts of harming others: None Do you have a plan to hurt others: No Plan Recently lost weight without trying: Unsure Eating poorly because of decreased appetite: No Nutrition Risks: No Nutritional Risk Poor oral hygiene: No service: No Meds Allergies Allergy/AdvReac Type Severity Reaction Status Date / Time lorazepam [From Ativan] AdvReac Shakiness Verified 03/20/23 23:33 metoclopramide [From Reglan] AdvReac Nausea Verified 03/20/23 23:33 Active Medications: Current Medications Acetaminophen (Acetaminophen 325 Mg Tablet) 650 mg PO Q6H PRN PRN Reason: Pain, Mild (Pain Scale 1-3) Last Admin: 03/23/23 08:16 Dose: 650 mg Alprazolam (Alprazolam 0.5 Mg Tablet) 0.5 mg PO BID PRN PRN Reason: anxiety Last Admin: 03/23/23 08:12 Dose: 0.5 mg Atorvastatin Calcium (Atorvastatin Calcium 20 Mg Tablet) 20 mg PO DAILY [facility] Last Admin: 03/23/23 08:11 Dose: 20 mg Calcitriol (Calcitriol 0.25 Mcg Capsule) 0.5 mcg PO MoWeFr@1800 DENZEL Calcium Carbonate (Calcium Carbonate 750 Mg Tab.Chew) 750 mg PO DAILY PRN PRN Reason: Acid Reflux Carvedilol (Carvedilol 25 Mg Tablet) 25 mg PO BID [facility]; Protocol Last Admin: 03/23/23 08:12 Dose: 25 mg Cinacalcet (Cinacalcet Hcl 30 Mg Tablet) 90 mg PO MoWeFr@1800 DENZEL Clonidine (Clonidine 0.3 Mg Patch.Tdwk) 0.3 mg TRANSDERMA SA@0900 [facility]; Protocol Last Admin: 03/23/23 08:13 Dose: 0.3 mg Clonidine HCl (Clonidine Hcl 0.2 Mg Tablet) 0.2 mg PO DAILY PRN; Protocol PRN Reason: Sbp > 180 Clotrimazole (Clotrimazole 1 % Cream 15 Gm Tube) 1 appl TOPICAL DAILY PRN PRN Reason: Rash Docusate Sodium (Docusate Sodium 100 Mg Capsule) 100 mg PO DAILY PRN PRN Reason: Constipation Ergocalciferol (Ergocalciferol (Vitamin D2) 1,250 Mcg Capsule) 1,250 mcg PO [facility] Gabapentin (Gabapentin 100 Mg Capsule) 200 mg PO BID [facility] Last Admin: 03/23/23 08:11 Dose: 200 mg Heparin Sodium (Porcine) (Heparin Sodium,Porcine 5,000 Unit/Ml Vial) 5,000 unit SUBCUT Q12H [facility] Last Admin: 03/23/23 03:42 Dose: 5,000 unit Hydralazine HCl (Hydralazine Hcl 25 Mg Tablet) 25 mg PO TID [facility]; Protocol Last Admin: 03/23/23 08:13 Dose: 25 mg Hydrocortisone (Hydrocortisone 1 % Cream 28.35 Gm Tube) 1 appl TOPICAL DAILY PRN PRN Reason: Rash Lactulose (Lactulose 20 Gm/30 Ml Solution) 10 gm PO DAILY PRN PRN Reason: Constipation Levetiracetam (Levetiracetam 1,000 Mg Tablet) 1,000 mg PO BID [facility] Last Admin: 03/23/23 08:12 Dose: 1,000 mg Lidocaine (Lidocaine 4 % Patch Adh..Patch) 1 patch TRANSDERMA DAILY [facility]; Protocol Last Admin: 03/23/23 08:14 Dose: 1 patch Losartan Potassium (Losartan Potassium 50 Mg Tablet) 100 mg PO DAILY [facility]; Protocol Last Admin: 03/23/23 08:13 Dose: 100 mg Nifedipine (Nifedipine Er 60 Mg Tab.Er.24) 60 mg PO DAILY [facility] Last Admin: 03/23/23 08:13 Dose: 60 mg Omeprazole (Omeprazole 20 Mg Capsule.Dr) 20 mg PO DAILY@0630 [facility] Last Admin: 03/23/23 05:43 Dose: 20 mg Ondansetron HCl (Ondansetron Hcl 4 Mg/2 Ml Vial) 4 mg IVPUSH Q8H PRN PRN Reason: Nausea and Vomiting Pharmacy Consult (Consult Rx Perform Med Rec) 1 each MISCELLANE ONCE PRN PRN Reason: Consult order Polyethylene Glycol (Polyethylene Glycol 3350 17 Gm Powd.Pack) 17 gm PO DAILY PRN PRN Reason: Constipation Senna/Docusate Sodium (Sennosides/Docusate Sodium Tablet) 2 tab PO BID [facility] Last Admin: 03/23/23 08:11 Dose: 2 tab Sertraline HCl (Sertraline Hcl 50 Mg Tablet) 50 mg PO DAILY [facility] Last Admin: 03/23/23 08:13 Dose: 50 mg Sevelamer Carbonate (Sevelamer Carbonate Tablet 800 Mg Tablet) 2,400 mg PO TIDWM [facility] Last Admin: 03/23/23 08:10 Dose: 2,400 mg Home Medications Medication Instructions Recorded Confirmed Last Taken Type acetaminophen 500 mg tablet 1,000 mg PO TID PRN pain 03/13/23 03/22/23 Unknown History alprazolam 0.5 mg tablet 0.5 mg PO BID PRN anxiety 03/13/23 03/22/23 Unknown History atorvastatin 20 mg tablet 20 mg PO DAILY 03/13/23 03/22/23 03/22/23 09:00 History calcitriol 0.5 mcg capsule 0.5 mcg PO MOWEFR 03/13/23 03/22/23 03/20/23 History calcium carbonate 500 mg calcium 500 mg PO DAILY PRN Acid Reflux 03/13/23 03/22/23 Unknown History (1,250 mg) chewable tablet carvedilol 25 mg tablet 25 mg PO BID 03/13/23 03/22/23 03/22/23 09:00 History cinacalcet 90 mg tablet 90 mg PO MOWEFR 03/13/23 03/22/23 03/20/23 History clonidine 0.3 mg/24 hr weekly 1 patch topical SA@0900 03/13/23 03/22/23 03/16/23 History transdermal patch clonidine HCl 0.2 mg tablet 0.2 mg PO DAILY PRN Blood Pressure 03/13/23 03/22/23 Unknown History ergocalciferol (vitamin D2) 1,250 1,250 mcg PO FR 03/13/23 03/22/23 03/15/23 History mcg (50,000 unit) capsule (Vitamin D2) gabapentin 100 mg capsule 200 mg PO BID 03/13/23 03/22/23 03/22/23 09:00 History hydralazine 25 mg tablet 25 mg PO TID 03/13/23 03/22/23 03/22/23 09:00 History hydrocortisone 0.5 % topical cream 1 appl topical DAILY PRN Rash 03/13/23 03/22/23 Unknown History ketoconazole 2 % topical cream 1 appl topical DAILY PRN Rash 03/13/23 03/22/23 Unknown History lactulose 10 gram/15 mL oral 15 ml PO DAILY PRN Constipation 03/13/23 03/22/23 Unknown History solution losartan 100 mg tablet 100 mg PO DAILY 03/13/23 03/22/2323 09:00 History nifedipine 60 mg tablet,extended 60 mg PO DAILY 03/13/23 03/22/23 03/22/23 09:00 History release nitroglycerin 0.4 mg sublingual 0.4 mg sublingual Q5M PRN Chest 03/13/23 03/22/23 Unknown History tablet Pain ondansetron HCl 4 mg tablet 4 mg PO Q8H PRN Nausea 03/13/23 03/22/23 Unknown History pantoprazole 40 mg tablet,delayed 40 mg PO DAILY@0630 03/13/23 03/22/23 03/22/23 09:00 History release polyethylene glycol 3350 17 17 g PO DAILY PRN Constipation 03/13/23 03/22/23 Unknown History gram/dose oral powder sennosides 8.6 mg-docusate sodium 2 tab PO BID 03/13/23 03/22/23 03/22/23 09:00 History 50 mg tablet (Senna Plus) sertraline 50 mg tablet 50 mg PO DAILY 03/13/23 03/22/23 03/22/23 09:00 History sevelamer carbonate 800 mg tablet 2,400 mg PO TIDWMEAL 03/13/23 03/22/23 03/22/23 09:00 History levetiracetam 500 mg tablet 1,000 mg PO BID 03/22/23 03/22/23 03/22/23 09:00 History Physical Exam Vital Signs: Vital Signs: Last Vital Signs Temp 98.7 F 03/23/23 07:47 Pulse 69 03/23/23 07:47 Resp 20 03/23/23 07:47 BP 146/95 H 03/23/23 07:47 Pulse Ox 97 03/23/23 07:47 O2 Del Method Room Air 03/23/23 07:47 BMI result Body Mass Index 29.6 GENERAL APPEARANCE: in no acute distress, pleasant. NECK: no carotid bruit, no jugular venous distention. SKIN: no suspicious lesions, warm and dry. Left sided PermCath. Right chest port. HEART: no murmurs, regular rate and rhythm. LUNGS: clear to auscultation bilaterally. ABDOMEN: soft, nontender. EXTREMITIES: no edema. PERIPHERAL PULSES: equal. NEUROLOGIC: No gross deficits, AAO X 3 Objective Labs and Meds 03/23/23 06:13 03/23/23 06:13 Lab results: Laboratory Results - last 24 hr 03/22/23 03/22/23 03/23/23 13:12 13:12 06:13 WBC 9.5 7.5 RBC 2.93 L 2.69 L Hgb 8.6 L 7.9 L Hct 25.9 L 24.1 L MCV 88.4 89.6 MCH 29.4 29.4 MCHC 33.2 32.8 RDW 13.4 13.3 Plt Count 135 L 122 L MPV 9.5 9.3 L Immature Gran % (Auto) 0.4 0.5 H Neut % (Auto) 79.2 H 69.8 Lymph % (Auto) 7.0 L 14.4 L Emery % (Auto) 9.8 10.9 Eos % (Auto) 3.2 4.0 Baso % (Auto) 0.4 0.4 Lymph # (Auto) 0.7 L 1.1 L Emery # (Auto) 0.9 0.8 Eos # (Auto) 0.3 0.3 Baso # (Auto) 0.0 0.0 Abs Immat Gran (auto) 0.04 H 0.04 H Absolute Neuts (auto) 7.5 5.2 Absolute Nucleated RBC 0.000 0.000 Nucleated RBC % (auto) 0.0 0.0 Sodium 143 Potassium 4.2 Chloride 103 Carbon Dioxide 27 Anion Gap 17 BUN 31 H Creatinine 10.31 H* Estim Creat Clear Calc 13.1 Estimated GFR 6 Random Glucose 91 Calcium 9.5 Phosphorus 5.0 H Magnesium 2.2 Total Bilirubin 0.6 Direct Bilirubin 0.1 AST 9 ALT 7 Alkaline Phosphatase 49 Total Creatine Kinase 29 L Total Protein 5.5 L Albumin 3.4 L Ethyl Alcohol < 10 03/23/23 06:13 WBC RBC Hgb Hct MCV MCH MCHC RDW Plt Count MPV Immature Gran % (Auto) Neut % (Auto) Lymph % (Auto) Emery % (Auto) Eos % (Auto) Baso % (Auto) Lymph # (Auto) Emery # (Auto) Eos # (Auto) Baso # (Auto) Abs Immat Gran (auto) Absolute Neuts (auto) Absolute Nucleated RBC Nucleated RBC % (auto) Sodium 142 Potassium 3.9 Chloride 103 Carbon Dioxide 27 Anion Gap 16 BUN 38 H Creatinine 12.61 H* Estim Creat Clear Calc 10.6 Estimated GFR 5 Random Glucose 116 H Calcium 9.3 Phosphorus Magnesium 2.2 Total Bilirubin Direct Bilirubin AST ALT Alkaline Phosphatase Total Creatine Kinase Total Protein Albumin Ethyl Alcohol Imaging Radiologist's impression: Impressions Cervical Spine CT 03/22/23 13:10 IMPRESSION: 1. No evidence for acute bony fracture. 2. Degenerative changes as noted above. 3. Other incidental findings as noted above. Head CT 03/22/23 13:10 IMPRESSION: No evidence for acute process. No significant change since the previous examination. Assessment and Plan (1) Recurrent syncope: Status: Acute (2) Seizure disorder: Status: Acute Plan [age] year gentleman with end-stage renal disease who has been started on hemodialysis 1 week ago presenting with recurrent syncope. He was diagnosed with seizures recently and was started on Keppra. It looks like he passed out while changing posture and has been started on hemodialysis a week ago. Potential causes are orthostasis versus seizure. He had a normal echocardiogram recently. His EKG has no dynamic changes. He can be monitor on telemetry to rule out any arrhythmia. I think syncope is likely to be noncardiac in origin and seems more likely due to orthostasis given the fact that he just started hemodialysis. He is also anemic. He should have repeat hemoglobin post dialysis. Thank you for allowing me to participate in the care of your patient. Please feel free to contact me if you have any questions. Time Spent With Patient Time: Total time managing care of this patient today ____ minutes. Procedures Date of Service Date of Service: 03/23/23
--- NOTE | 2023-03-23 12:51 | PM.CNNEP ---
History of Present Illness Reason for Consult Consult date: 03/24/23 Reason for consult: ESRD Chief Complaint Chief complaint: recurrent syncope, seizures History of Present Illness Narrative: 27-year-old male with a history of ADHD, hyperactivity, anemia, anxiety, depression, remote history of drug addiction with IV heroin use disorder-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 He was admitted last week for similar episode and had positive EEG and was started on keppra. Two days ago was at home and experienced syncopal episode. This morning went to dialysis and prior to dialysis initiation felt lightheaded as he bent to grab something in his bag and syncopized, falling to the floor and hit head with LOC for unknown duration. Denies any palpitations, sob, chest pain, visual changes at the time. After the fall, complaining of left neck pain into the left upper trap. States for the last week had felt fatigued and generally week. Also notes leg cramping in legs bilaterally for the last month.? As result of syncope, he was unable to be dialyzed this morning.? On arrival, vital stable except for hypertension at 155/104.? There is no leukocytosis.? H/H 8.6/25.9%, platelets 135.? Creatinine 10.31, BUN 31, electrolyte levels normal except for elevated phosphorus 5.0. Total CK 27. Etoh negative.? Head CT negative for any acute abnormality.? Cervical spine CT negative for any acute fracture or subluxation but degenerative changes are noted.? He did have echocardiogram performed last week without any significant valvular abnormality or LV dysfunction.? There were no wall motion abnormalities. Usually gets dialysis Saturday. He did not get his dialysis yesterday. Review of Systems Review of Systems No headache. No nausea vomiting. No abdominal pain. No shortness of breath. No cough. No dysuria urgency or hematuria. No edema. No rash. [facility] Past Medical History Medical History (Updated 03/23/23 @ 17:13 by Lemuel Goldstein DO) Back pain Bilateral lower extremity pain End stage chronic kidney disease ESRD on dialysis Seizure disorder Social History Social History Household Members: Family Household Members Other:: mom, step dad, sister and nephew Housing: House Do you presently have visiting nurse or other home services: No Alcohol intake: never Patient Tobacco Use Status: Never used Tobacco Use of substances other than those prescribed or required for medical reasons: Yes Substance Use Type: Marijuana Substance Use Frequency: Daily Last Used Substance: Days (ago) Currently Displaying Signs/Symptoms of Drug Intoxication Withdrawal: No Any prior treatment program specific to substance use: No Have you been hit, kicked, punched, or otherwise hurt by someone within the past year? If so, by whom?: No Do you feel safe in your current relationship?: No Current Relationship Is there a partner from a previous relationship who is making you feel unsafe now?: No Are you made to feel afraid or neglected: No Spiritual Healthcare Practices: none [facility] Practices: none Cultural Healthcare Practices: none Advance Directives: No Advance Directives Information Provided: No Do you have thoughts of harming others: None Do you have a plan to hurt others: No Plan Recently lost weight without trying: Unsure Eating poorly because of decreased appetite: No Nutrition Risks: No Nutritional Risk Poor oral hygiene: No service: No Meds Allergies Allergy/AdvReac Type Severity Reaction Status Date / Time lorazepam [From Ativan] AdvReac Shakiness Verified 03/20/23 23:33 metoclopramide [From Reglan] AdvReac Nausea Verified 03/20/23 23:33 Active Medications: Current Medications Acetaminophen (Acetaminophen 325 Mg Tablet) 650 mg PO Q6H PRN PRN Reason: Pain, Mild (Pain Scale 1-3) Last Admin: 03/23/23 08:16 Dose: 650 mg Alprazolam (Alprazolam 0.5 Mg Tablet) 0.5 mg PO BID PRN PRN Reason: anxiety Last Admin: 03/23/23 08:12 Dose: 0.5 mg Atorvastatin Calcium (Atorvastatin Calcium 20 Mg Tablet) 20 mg PO DAILY [facility] Last Admin: 03/23/23 08:11 Dose: 20 mg Calcitriol (Calcitriol 0.25 Mcg Capsule) 0.5 mcg PO MoWeFr@1800 [facility] Calcium Carbonate (Calcium Carbonate 750 Mg Tab.Chew) 750 mg PO DAILY PRN PRN Reason: Acid Reflux Carvedilol (Carvedilol 25 Mg Tablet) 25 mg PO BID [facility]; Protocol Last Admin: 03/23/23 08:12 Dose: 25 mg Cinacalcet (Cinacalcet Hcl 30 Mg Tablet) 90 mg PO MoWeFr@1800 [facility] Clonidine (Clonidine 0.3 Mg Patch.Tdwk) 0.3 mg TRANSDERMA SA@0900 [facility]; Protocol Last Admin: 03/23/23 08:13 Dose: 0.3 mg Clonidine HCl (Clonidine Hcl 0.2 Mg Tablet) 0.2 mg PO DAILY PRN; Protocol PRN Reason: Sbp > 180 Clotrimazole (Clotrimazole 1 % Cream 15 Gm Tube) 1 appl TOPICAL DAILY PRN PRN Reason: Rash Docusate Sodium (Docusate Sodium 100 Mg Capsule) 100 mg PO DAILY PRN PRN Reason: Constipation Ergocalciferol (Ergocalciferol (Vitamin D2) 1,250 Mcg Capsule) 1,250 mcg PO FR [facility] Gabapentin (Gabapentin 100 Mg Capsule) 200 mg PO BID [facility] Last Admin: 03/23/23 08:11 Dose: 200 mg Heparin Sodium (Porcine) (Heparin Sodium,Porcine 5,000 Unit/Ml Vial) 5,000 unit SUBCUT Q12H [facility] Last Admin: 03/23/23 03:42 Dose: 5,000 unit Hydralazine HCl (Hydralazine Hcl 25 Mg Tablet) 25 mg PO TID [facility]; Protocol Last Admin: 03/23/23 08:13 Dose: 25 mg Hydrocortisone (Hydrocortisone 1 % Cream 28.35 Gm Tube) 1 appl TOPICAL DAILY PRN PRN Reason: Rash Lactulose (Lactulose 20 Gm/30 Ml Solution) 10 gm PO DAILY PRN PRN Reason: Constipation Levetiracetam (Levetiracetam 1,000 Mg Tablet) 1,000 mg PO BID [facility] Last Admin: 03/23/23 08:12 Dose: 1,000 mg Lidocaine (Lidocaine 4 % Patch Adh..Patch) 1 patch TRANSDERMA DAILY [facility]; Protocol Last Admin: 03/23/23 08:14 Dose: 1 patch Losartan Potassium (Losartan Potassium 50 Mg Tablet) 100 mg PO DAILY [facility]; Protocol Last Admin: 03/23/23 08:13 Dose: 100 mg Nifedipine (Nifedipine Er 60 Mg Tab.Er.24) 60 mg PO DAILY [facility] Last Admin: 03/23/23 08:13 Dose: 60 mg Omeprazole (Omeprazole 20 Mg Capsule.Dr) 20 mg PO DAILY@0630 [facility] Last Admin: 03/23/23 05:43 Dose: 20 mg Ondansetron HCl (Ondansetron Hcl 4 Mg/2 Ml Vial) 4 mg IVPUSH Q8H PRN PRN Reason: Nausea and Vomiting Pharmacy Consult (Consult Rx Perform Med Rec) 1 each MISCELLANE ONCE PRN PRN Reason: Consult order Polyethylene Glycol (Polyethylene Glycol 3350 17 Gm Powd.Pack) 17 gm PO DAILY PRN PRN Reason: Constipation Senna/Docusate Sodium (Sennosides/Docusate Sodium Tablet) 2 tab PO BID [facility] Last Admin: 03/23/23 08:11 Dose: 2 tab Sertraline HCl (Sertraline Hcl 50 Mg Tablet) 50 mg PO DAILY [facility] Last Admin: 03/23/23 08:13 Dose: 50 mg Sevelamer Carbonate (Sevelamer Carbonate Tablet 800 Mg Tablet) 2,400 mg PO TIDWM [facility] Last Admin: 03/23/23 12:12 Dose: 2,400 mg Home Medications Medication Instructions Recorded Confirmed Last Taken Type acetaminophen 500 mg tablet 1,000 mg PO TID PRN pain 03/13/23 03/22/23 Unknown History alprazolam 0.5 mg tablet 0.5 mg PO BID PRN anxiety 03/13/23 03/22/23 Unknown History atorvastatin 20 mg tablet 20 mg PO DAILY 03/13/23 03/22/23 03/22/23 09:00 History calcitriol 0.5 mcg capsule 0.5 mcg PO MOWEFR 03/13/23 03/22/23 03/20/23 History calcium carbonate 500 mg calcium 500 mg PO DAILY PRN Acid Reflux 03/13/23 03/22/23 Unknown History (1,250 mg) chewable tablet carvedilol 25 mg tablet 25 mg PO BID 03/13/23 03/22/23 03/22/23 09:00 History cinacalcet 90 mg tablet 90 mg PO MOWEFR 03/13/23 03/22/23 03/20/23 History clonidine 0.3 mg/24 hr weekly 1 patch topical SA@0900 03/13/23 03/22/23 03/16/23 History transdermal patch clonidine HCl 0.2 mg tablet 0.2 mg PO DAILY PRN Blood Pressure 03/13/23 03/22/23 Unknown History ergocalciferol (vitamin D2) 1,250 1,250 mcg PO FR 03/13/23 03/22/23 03/15/23 History mcg (50,000 unit) capsule (Vitamin D2) gabapentin 100 mg capsule 200 mg PO BID 03/13/23 03/22/23 03/22/23 09:00 History hydrocortisone 0.5 % topical cream 1 appl topical DAILY PRN Rash 03/13/23 03/22/23 Unknown History ketoconazole 2 % topical cream 1 appl topical DAILY PRN Rash 03/13/23 03/22/23 Unknown History lactulose 10 gram/15 mL oral 15 ml PO DAILY PRN Constipation 03/13/23 03/22/23 Unknown History solution losartan 100 mg tablet 100 mg PO DAILY 03/13/23 03/22/23 03/22/23 09:00 History nifedipine 60 mg tablet,extended 60 mg PO DAILY 03/13/23 03/22/23 03/22/23 09:00 History release nitroglycerin 0.4 mg sublingual 0.4 mg sublingual Q5M PRN Chest 03/13/23 03/22/23 Unknown History tablet Pain ondansetron HCl 4 mg tablet 4 mg PO Q8H PRN Nausea 03/13/23 03/22/23 Unknown History pantoprazole 40 mg tablet,delayed 40 mg PO DAILY@62903/13/23 03/22/23 03/22/23 09:00 History release polyethylene glycol 3350 17 17 g PO DAILY PRN Constipation 03/13/23 03/22/23 Unknown History gram/dose oral powder sennosides 8.6 mg-docusate sodium 2 tab PO BID 03/13/23 03/22/23 03/22/23 09:00 History 50 mg tablet (Senna Plus) sertraline 50 mg tablet 50 mg PO DAILY 03/13/23 03/22/23 03/22/23 09:00 History sevelamer carbonate 800 mg tablet 2,400 mg PO TIDWMEAL 03/13/23 03/22/23 03/22/23 09:00 History levetiracetam 500 mg tablet 1,000 mg PO BID 03/22/23 03/22/23 03/22/23 09:00 History Physical Exam Vital Signs: Last Vital Signs Temp 97.2 F 03/23/23 11:33 Pulse 70 03/23/23 11:33 Resp 18 03/23/23 11:33 BP 150/100 H 03/23/23 11:33 Pulse Ox 96 03/23/23 11:33 O2 Del Method Room Air 03/23/23 11:33 BMI result Body Mass Index 29.6 Comfortable Neck is supple Lung: Air entry equal Heart: S1,S2, normal. No rub Abd: Soft. BS + NS : Alert.No asterexis Ext: No edema Results Lab Results 03/23/23 06:13 03/23/23 06:13 Lab results: Chemistry 03/22/23 03/23/23 13:12 06:13 Sodium 143 142 Potassium 4.2 3.9 Carbon Dioxide 27 27 BUN 31 H 38 H Creatinine 10.31 H* 12.61 H* Calcium 9.5 9.3 Phosphorus 5.0 H Hematology 03/22/23 03/23/23 13:12 06:13 WBC 9.5 7.5 Hgb 8.6 L 7.9 L Plt Count 135 L 122 L Assessment and Plan (1) ESRD on dialysis: Status: Acute Plan Young man with ESRD. Today he has no overt signs or symptoms of uremia. He was due for dialysis yesterday since he has missed dialysis I will proceed with dialysis today. We will remove fluid as tolerated and reassess blood pressure. Anemia due to underlying CKD we will restart Epogen. Concur with other medical management and await neuro evaluation. Time Spent With Patient Time: Total time managing care of this patient today ____ minutes. Procedures Date of Service Date of Service: 03/24/23
--- NOTE | 2023-03-23 13:18 | MHC.CM.PN ---
Interview conducted w/Pt. Previously independent; owns cane, does not drive, no prior services, family drives him where he needs to go. Lives w/mother, step father, sister and nephew. D/C plan is return to home w/family via family when ready. CM to follow.
--- NOTE | 2023-03-23 13:40 | PC.NURSE ---
pt to dialysis at this time via bed
--- NOTE | 2023-03-23 16:59 | HO.PM.IMPN ---
Subjective Subjective Date of Service: 03/23/23 Interval History: continues to feel lousy . Complaining of crampy leg pain. . . Requesting pain meds and Benadryl Review of Systems denies chest pain Denies shortness of breath Denies nausea vomiting diarrhea Denies fever chills Physical Exam Vital Signs: Vital Signs: Last Vital Signs Temp 97.5 F 03/23/23 16:12 Pulse 73 03/23/23 16:12 Resp 16 03/23/23 16:12 BP 150/98 H 03/23/23 16:12 Pulse Ox 96 03/23/23 11:33 O2 Del Method Room Air 03/23/23 11:33 BMI result Body Mass Index 29.6 Const: Other: no acute distress Resp: Other: clear to auscultation bilaterally no rales rhonchi or wheezes Cardio: Other: no S4; positive S1-S2; no S3 murmurs rubs or gallops GI: Other: soft nontender nondistended normoactive bowel sounds Extrem: Other: no edema bilaterally Objective Data Active Medications Acetaminophen (Acetaminophen 325 Mg Tablet) 650 mg PO Q6H PRN PRN Reason: Pain, Mild (Pain Scale 1-3) Last Admin: 03/23/23 15:18 Dose: 650 mg Documented By: ARAM Alprazolam (Alprazolam 0.5 Mg Tablet) 0.5 mg PO BID PRN PRN Reason: anxiety Last Admin: 03/23/23 08:12 Dose: 0.5 mg Documented By: ARAM Atorvastatin Calcium (Atorvastatin Calcium 20 Mg Tablet) 20 mg PO DAILY [facility] Last Admin: 03/23/23 08:11 Dose: 20 mg Documented By: ARAM Calcitriol (Calcitriol 0.25 Mcg Capsule) 0.5 mcg PO MoWeFr@1800 [facility] Calcium Carbonate (Calcium Carbonate 750 Mg Tab.Chew) 750 mg PO DAILY PRN PRN Reason: Acid Reflux Carvedilol (Carvedilol 25 Mg Tablet) 25 mg PO BID [facility]; Protocol Last Admin: 03/23/23 08:12 Dose: 25 mg Documented By: ARAM Cinacalcet (Cinacalcet Hcl 30 Mg Tablet) 90 mg PO MoWeFr@1800 [facility] Clonidine (Clonidine 0.3 Mg Patch.Tdwk) 0.3 mg TRANSDERMA SA@0900 [facility]; Protocol Last Admin: 03/23/23 08:13 Dose: 0.3 mg Documented By: ARAM Clonidine HCl (Clonidine Hcl 0.2 Mg Tablet) 0.2 mg PO DAILY PRN; Protocol PRN Reason: Sbp > 180 Clotrimazole (Clotrimazole 1 % Cream 15 Gm Tube) 1 appl TOPICAL DAILY PRN PRN Reason: Rash Docusate Sodium (Docusate Sodium 100 Mg Capsule) 100 mg PO DAILY PRN PRN Reason: Constipation Ergocalciferol (Ergocalciferol (Vitamin D2) 1,250 Mcg Capsule) 1,250 mcg PO FR [facility] Gabapentin (Gabapentin 100 Mg Capsule) 200 mg PO BID [facility] Last Admin: 03/23/23 08:11 Dose: 200 mg Documented By: ARAM Heparin Sodium (Porcine) (Heparin Sodium,Porcine 5,000 Unit/Ml Vial) 5,000 unit SUBCUT Q12H [facility] Last Admin: 03/23/23 15:17 Dose: Not Given Documented By: ARAM Non-Admin Reason: able to walk Hydralazine HCl (Hydralazine Hcl 25 Mg Tablet) 25 mg PO TID [facility]; Protocol Last Admin: 03/23/23 14:49 Dose: 25 mg Documented By: ARAM Comments: 160/120 Hydrocortisone (Hydrocortisone 1 % Cream 28.35 Gm Tube) 1 appl TOPICAL DAILY PRN PRN Reason: Rash Lactulose (Lactulose 20 Gm/30 Ml Solution) 10 gm PO DAILY PRN PRN Reason: Constipation Levetiracetam (Levetiracetam 1,000 Mg Tablet) 1,000 mg PO BID [facility] Last Admin: 03/23/23 08:12 Dose: 1,000 mg Documented By: ARAM Lidocaine (Lidocaine 4 % Patch Adh..Patch) 1 patch TRANSDERMA DAILY [facility]; Protocol Last Admin: 03/23/23 08:14 Dose: 1 patch Documented By: ARAM Losartan Potassium (Losartan Potassium 50 Mg Tablet) 100 mg PO DAILY [facility]; Protocol Last Admin: 03/23/23 08:13 Dose: 100 mg Documented By: ARAM Nifedipine (Nifedipine Er 60 Mg Tab.Er.24) 60 mg PO DAILY [facility] Last Admin: 03/23/23 08:13 Dose: 60 mg Documented By: ARAM Omeprazole (Omeprazole 20 Mg Capsule.Dr) 20 mg PO DAILY@0630 [facility] Last Admin: 03/23/23 05:43 Dose: 20 mg Documented By: CRYSTAL Ondansetron HCl (Ondansetron Hcl 4 Mg/2 Ml Vial) 4 mg IVPUSH Q8H PRN PRN Reason: Nausea and Vomiting Pharmacy Consult (Consult Rx Perform Med Rec) 1 each MISCELLANE ONCE PRN PRN Reason: Consult order Polyethylene Glycol (Polyethylene Glycol 3350 17 Gm Powd.Pack) 17 gm PO DAILY PRN PRN Reason: Constipation Senna/Docusate Sodium (Sennosides/Docusate Sodium Tablet) 2 tab PO BID [facility] Last Admin: 03/23/23 08:11 Dose: 2 tab Documented By: ARAM Sertraline HCl (Sertraline Hcl 50 Mg Tablet) 50 mg PO DAILY [facility] Last Admin: 03/23/23 08:13 Dose: 50 mg Documented By: ARAM Sevelamer Carbonate (Sevelamer Carbonate Tablet 800 Mg Tablet) 2,400 mg PO TIDWM [facility] Last Admin: 03/23/23 12:12 Dose: 2,400 mg Documented By: ARAM Labs 03/23/23 06:13 03/23/23 06:13 Labs: Laboratory Results - last 24 hr 03/23/23 03/23/23 03/23/23 06:13 06:13 12:37 MCV 89.6 MCH 29.4 MCHC 32.8 RDW 13.3 Plt Count 122 L MPV 9.3 L Immature Gran % (Auto) 0.5 H Neut % (Auto) 69.8 Lymph % (Auto) 14.4 L [place] % (Auto) 10.9 Eos % (Auto) 4.0 Baso % (Auto) 0.4 Lymph # (Auto) 1.1 L [place] # (Auto) 0.8 Eos # (Auto) 0.3 Baso # (Auto) 0.0 Abs Immat Gran (auto) 0.04 H Absolute Neuts (auto) 5.2 Absolute Nucleated RBC 0.000 Nucleated RBC % (auto) 0.0 Anion Gap 16 Estim Creat Clear Calc 10.6 Estimated GFR 5 Random Glucose 116 H Calcium 9.3 Magnesium 2.2 Urine Color Yellow Urine Appearance Clear Urine pH 8.0 Ur Specific [place] 1.010 Urine Protein 300 (3+) H Urine Glucose (UA) 100 H Urine Ketones Negative Urine Blood Negative Urine Nitrite Negative Ur Leukocyte Esterase Negative Urine RBC 0-2 Urine WBC 6-10 H Ur Squamous Epith Cells 0-2 Urine Bacteria None Seen Hyaline Casts 0-2 Urine Opiates Screen Urine Fentanyl Screen Ur Barbiturates Screen Ur Phencyclidine Scrn Ur Amphetamines Screen U Benzodiazepines Scrn Urine Cocaine Screen U Marijuana (THC) Screen Blood Type Antibody Screen Crossmatch 03/23/23 03/23/23 12:37 13:47 MCV MCH MCHC RDW Plt Count MPV Immature Gran % (Auto) Neut % (Auto) Lymph % (Auto) [place] % (Auto) Eos % (Auto) Baso % (Auto) Lymph # (Auto) [place] # (Auto) Eos # (Auto) Baso # (Auto) Abs Immat Gran (auto) Absolute Neuts (auto) Absolute Nucleated RBC Nucleated RBC % (auto) Anion Gap Estim Creat Clear Calc Estimated GFR Random Glucose Calcium Magnesium Urine Color Urine Appearance Urine pH Ur Specific [place] Urine Protein Urine Glucose (UA) Urine Ketones Urine Blood Urine Nitrite Ur Leukocyte Esterase Urine RBC Urine WBC Ur Squamous Epith Cells Urine Bacteria Hyaline Casts Urine Opiates Screen POSITIVE H Urine Fentanyl Screen Not Detected Ur Barbiturates Screen Not Detected Ur Phencyclidine Scrn Not Detected Ur Amphetamines Screen Not Detected U Benzodiazepines Scrn POSITIVE H Urine Cocaine Screen Not Detected U Marijuana (THC) Screen Not Detected Blood Type O Positive Antibody Screen NEGATIVE Crossmatch See Detail Assessment and Plan (1) Recurrent syncope: Status: Acute (2) ESRD on dialysis: Status: Acute (3) HTN (hypertension): Status: Acute (4) Anemia: Status: Acute Plan 27-year-old male with a history of ADHD, hyperactivity, anemia, anxiety, depression, remote history of drug addiction with IV heroin use disorder-no use in 3 years and marijuana daily use , end-stage renal disease, glomerulonephritis, hematemesis, hypertension, migraines without auras, osteomyelitis of the cervical spine, sleep apnea, lupus admitted for syncopal episode with ESRD requiring dialysis. 1.Syncope -describes orthostatic near syncope -Continue keppra -Neurology consult -Check orthostatic VS 2.ESRD on dilaysis- non oliguric(recent start HD -HD as per Renal -Nephrology consult appreciated -continue renvela -follow renals/divalents 3.Anemia - will transfuse 2 units packed cells during dialysis - follow response in a.m. -epo as per enal 4.Neck pain/Chronic leg pain -caution with narcotics. . . -lidocaine patch, tylenol 5.HTN... Poor control. Goes against orthostatic nature of syncope - increase hydralazine to 50 mg t.i.d. - follow clinically Heparin Full code requires ongoing hospitalization for hemodialysis and improved control of blood pressure. Also requires hospitalization for transfusion Time Spent With Patient Time: Total time managing care of this patient today ____ minutes. Quality Stroke Does the patient have a stroke diagnosis?: No VTE Prior VTE?: No VTE Risk Level:: Medical - moderate - high VTE Device Contraindication: Treatment Not Indicated VTE Drug Contraindication: N/A - Med Ordered
[2023-03-24] MEDS: Acetaminophen 325 MG TABLET 650 MG PO (00:04)
[2023-03-24 02:07] VITALS: TEMP 36.7
[2023-03-24] MEDS: Heparin Sodium,Porcine 5,000 UNIT/ML VIAL 5000 UNIT SUBCUT (02:12)
[2023-03-24 03:32] VITALS: BP 130/75; PULSE 73; RESP 18; TEMP 36.9; O2SAT 95
[2023-03-24] MEDS: Omeprazole 20 MG CAPSULE.DR PO (05:39)
[2023-03-24 07:19] VITALS: BP 138/90; PULSE 74; RESP 20; TEMP 36.8; O2SAT 97
[2023-03-24] MEDS: Sennosides/Docusate Sodium TABLET 2 TAB PO (08:43)
[2023-03-24] MEDS: carvediloL 25 MG TABLET PO (08:43)
[2023-03-24] MEDS: Sevelamer Carbonate Tablet 800 MG TABLET 2400 MG PO (08:44)
[2023-03-24] MEDS: NIFEdipine ER 60 MG TAB.ER.24 PO (08:44)
[2023-03-24] MEDS: Atorvastatin Calcium 20 MG TABLET PO (08:44)
[2023-03-24] MEDS: Sertraline HCL 50 MG TABLET PO (08:44)
[2023-03-24] MEDS: Gabapentin 100 MG CAPSULE 200 MG PO (08:44)
[2023-03-24] MEDS: levETIRAcetam 1,000 MG TABLET 1000 MG PO (08:44)
[2023-03-24] MEDS: Losartan Potassium 50 MG TABLET 100 MG PO (08:44)
[2023-03-24 11:35] VITALS: PULSE 74; RESP 20; TEMP 36.9; O2SAT 96
--- NOTE | 2023-03-24 11:58 | PM.DS ---
DS: Providers Provider Date of Service: 03/24/23 Date of admission: 03/22/23 15:25 Primary care physician: NEL Garcia Consults: 03/22/23 15:18 Consult to Cardiology Routine Consulting Provider: [facility] [place] Cardiovascular Services Reason for consultation: syncope, ?cardiogenic Consult to Nephrology Routine Consulting Provider: Adalberto Mar Reason for consultation: esrd on dialysis DS: Diagnosis Discharge Diagnosis (1) Recurrent syncope: Status: Acute (2) ESRD on dialysis: Status: Acute (3) HTN (hypertension): Status: Acute (4) Anemia: Status: Acute DS: Summary Hospital Course Hospital Course: 27-year-old male with a history of ADHD, hyperactivity, anemia, anxiety, depression, remote history of drug addiction with IV heroin use disorder-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 He was admitted last week for similar episode and had positive EEG and was started on keppra. Two days ago was at home and experienced syncopal episode. This morning went to dialysis and prior to dialysis initiation felt lightheaded as he bent to grab something in his bag and syncopized, falling to the floor and hit head with LOC for unknown duration. Denies any palpitations, sob, chest pain, visual changes at the time. After the fall, complaining of left neck pain into the left upper trap. States for the last week had felt fatigued and generally week. Also notes leg cramping in legs bilaterally for the last month.? As result of syncope, he was unable to be dialyzed this morning.? On arrival, vital stable except for hypertension at 155/104.? There is no leukocytosis.? H/H 8.6/25.9%, platelets 135.? Creatinine 10.31, BUN 31, electrolyte levels normal except for elevated phosphorus 5.0. Total CK 27. Etoh negative.? Head CT negative for any acute abnormality.? Cervical spine CT negative for any acute fracture or subluxation but degenerative changes are noted.? He did have echocardiogram performed last week without any significant valvular abnormality or LV dysfunction.? There were no wall motion abnormalities. Hospital Course Admitted to telemetry where monitor failed to demonstrate any dysrhythmia the could be cause of patient's syncope. Patient described an orthostatics syncope however blood pressures were elevated which goes against this differential diagnosis. He was seen by Cardiology and 2D echo was reviewed. . . Cardiology did not feel this was a cardiogenic syncope. Patient's major focus is hospitalization was on his leg pain. He has follow-up with new PCP on April 02 and can discuss that at that time. And he was found to anemic and was transfused 2 units of packed red cell. Renal will follow-up at dialysis. at this point he is medically acceptable for discharge and can follow-up with his dialysis schedule Saturday and follow-up with new PCP as scheduled Time Spent with Patient Time attestation: Total time managing care of this patient today ____ minutes. Discharge coordination time: Greater than 30 minutes Quality: Safe Use of Opioids Does Pt have an Active Cancer Diagnosis on the Problem List?: No Quality: Stroke Does the patient have a stroke diagnosis?: No Physical Exam Vital Signs: Vital Signs: Last Vital Signs Temp 98.4 F 03/24/23 11:35 Pulse 74 03/24/23 11:35 Resp 20 03/24/23 11:35 BP 138/90 H 03/24/23 07:19 Pulse Ox 96 03/24/23 11:35 O2 Del Method Room Air 03/24/23 11:35 BMI result Body Mass Index 29.6 Const: Other: no acute distress Resp: Other: clear to auscultation bilaterally no rales rhonchi or wheezes Cardio: Other: no S4; positive S1-S2; no S3 murmurs rubs or gallops GI: Other: soft nontender nondistended normoactive bowel sounds Extrem: Other: no edema bilaterally DS: Data Data Completed and Pending Completed studies during hospitalization [Text1]: Procedures Performance of Urinary Filtration, Intermittent, Less than 6 Hours Per Day (03/13/23) Labs on day of discharge: Laboratory Results - last 24 hr 03/23/23 03/23/23 03/23/23 12:37 12:37 13:47 Urine Color Yellow Urine Appearance Clear Urine pH 8.0 Ur Specific [place] 1.010 Urine Protein 300 (3+) H Urine Glucose (UA) 100 H Urine Ketones Negative Urine Blood Negative Urine Nitrite Negative Ur Leukocyte Esterase Negative Urine RBC 0-2 Urine WBC 6-10 H Ur Squamous Epith Cells 0-2 Urine Bacteria None Seen Hyaline Casts 0-2 Urine Opiates Screen POSITIVE H Urine Fentanyl Screen Not Detected Ur Barbiturates Screen Not Detected Ur Phencyclidine Scrn Not Detected Ur Amphetamines Screen Not Detected U Benzodiazepines Scrn POSITIVE H Urine Cocaine Screen Not Detected U Marijuana (THC) Screen Not Detected Blood Type O Positive Antibody Screen NEGATIVE Crossmatch See Detail Discharge Plan Discharge Anticipated Discharge Date/Time: 03/24/23 11:47 Patient Disposition: Home, Self-Care Discharge Diagnosis: Presyncope Referrals: Pillo Trejo FNP-BC [Primary Care Provider] - 1 Week Discharge Medications: New hydralazine 50 mg Tablet 50 mg PO TID Qty: 90 0RF Protocol: Hold for SBP< HOLD for SBP < : 90 Continued carvedilol 25 mg tablet 25 mg PO BID atorvastatin 20 mg tablet 20 mg PO DAILY ondansetron HCl 4 mg tablet 4 mg PO Q8H PRN (Reason: Nausea) sennosides-docusate sodium [Senna Plus] 8.6-50 mg tablet 2 tab PO BID acetaminophen 500 mg tablet 1,000 mg PO TID PRN (Reason: pain) alprazolam 0.5 mg tablet 0.5 mg PO BID PRN (Reason: anxiety) clonidine HCl 0.2 mg tablet 0.2 mg PO DAILY PRN (Reason: Blood Pressure) pantoprazole 40 mg tablet,delayed release (DR/EC) 40 mg PO DAILY@0630 nitroglycerin 0.4 mg tablet, sublingual 0.4 mg sublingual Q5M PRN (Reason: Chest Pain) calcium carbonate 500 mg calcium (1,250 mg) Tablet,Chewable 500 mg PO DAILY PRN (Reason: Acid Reflux) clonidine 0.3 mg/24 hr patch weekly 1 patch topical SA@0900 gabapentin 100 mg capsule 200 mg PO BID polyethylene glycol 3350 17 gram/dose powder 17 g PO DAILY PRN (Reason: Constipation) nifedipine 60 mg tablet extended release 60 mg PO DAILY losartan 100 mg tablet 100 mg PO DAILY sertraline 50 mg tablet 50 mg PO DAILY cinacalcet 90 mg Tablet 90 mg PO MOWEFR Rx Instructions: only on dialysis days lactulose 10 gram/15 mL solution 15 ml PO DAILY PRN (Reason: Constipation) sevelamer carbonate 800 mg tablet 2,400 mg PO TIDWMEAL hydrocortisone 0.5 % Cream 1 appl TOPICAL DAILY PRN (Reason: Rash) Rx Instructions: face calcitriol 0.5 mcg Capsule 0.5 mcg PO MOWEFR Rx Instructions: administer after dialysis on dialysis days ergocalciferol (vitamin D2) [Vitamin D2] 1,250 mcg (50,000 unit) Capsule 1,250 mcg PO FR ketoconazole 2 % Cream 1 appl TOPICAL DAILY PRN (Reason: Rash) Rx Instructions: face levetiracetam 500 mg tablet 1,000 mg PO BID Discontinued hydralazine 25 mg tablet 25 mg PO TID Discharge Orders: Discharge Order (Routine); Ordered 03/24/23 Ordered By: Lemuel Goldstein Diet: Advance to usual diet Activity on Discharge: As tolerated Stand Alone Forms: Patient Portal Discharge page Care Plan Goals: meds were adjusted. Hydralazine was increased to 50 mg 3 times a day Health Concerns: resume all medicines as taken prior to hospice Plan of Treatment: resume dialysis as previous Assessment: see discharge summary
--- NOTE | 2023-03-24 12:15 | MHC.CM.PN ---
PT MEDICALLY CLEARED FOR D/C HOME SELF CARE, FAMILY FOR TRANSPORT
--- NOTE | 2023-03-24 13:02 | P.PNNP_ITS ---
Subjective Subjective Date of Service: 04/03/23 Interval history: continues to feel lousy . Complaining of crampy leg pain. . . Requesting pain meds and Benadryl Physical Exam Vital Signs: Vital Signs: Last Vital Signs Temp 98.4 F 03/24/23 11:35 Pulse 74 03/24/23 11:35 Resp 20 03/24/23 11:35 BP 138/90 H 03/24/23 07:19 Pulse Ox 96 03/24/23 11:35 O2 Del Method Room Air 03/24/23 11:35 BMI result Body Mass Index 29.6 Objective Data Labs 03/23/23 06:13 03/23/23 06:13 Labs: Laboratory Results - last 24 hr 03/23/23 03/23/23 03/23/23 12:37 12:37 13:47 Urine Color Yellow Urine Appearance Clear Urine pH 8.0 Ur Specific [place] 1.010 Urine Protein 300 (3+) H Urine Glucose (UA) 100 H Urine Ketones Negative Urine Blood Negative Urine Nitrite Negative Ur Leukocyte Esterase Negative Urine RBC 0-2 Urine WBC 6-10 H Ur Squamous Epith Cells 0-2 Urine Bacteria None Seen Hyaline Casts 0-2 Urine Opiates Screen POSITIVE H Urine Fentanyl Screen Not Detected Ur Barbiturates Screen Not Detected Ur Phencyclidine Scrn Not Detected Ur Amphetamines Screen Not Detected U Benzodiazepines Scrn POSITIVE H Urine Cocaine Screen Not Detected U Marijuana (THC) Screen Not Detected Blood Type O Positive Antibody Screen NEGATIVE Crossmatch See Detail Microbiology Microbiology Results: Microbiology 03/23/23 Unknown Urine clean catch - Urine vang top Urine Culture - Final No growth. Procedures Date of Service Date of Service: 04/03/23 Assessment & Plan Time Spent With Patient Time: Total time managing care of this patient today ____ minutes. Progress Note: Quality Stroke Does the patient have a stroke diagnosis?: No
== END 2023-03-24 15:27 | disposition home or self-care (01) | DRG 312 ==
LOC: HO.ED 14:49 → HO.EDOVER 15:36 → HO.IMC 15:57
PROVIDERS: Physician Assistant; Admitting Provider Physician Assistant; Emergency Provider Emergency Medicine Emergency Medical Services; PCP Nurse Practitioner Family; Visit Provider Hospitalist
DX: R55 Syncope and collapse (principal); N18.6 End stage renal disease; I12.0 Hypertensive chronic kidney disease with stage 5 chronic kidney disease or end stage renal disease; D63.1 Anemia in chronic kidney disease; E78.5 Hyperlipidemia, unspecified; G40.909 Epilepsy, unspecified, not intractable, without status epilepticus; F11.21 Opioid dependence, in remission; F90.9 Attention-deficit hyperactivity disorder, unspecified type; Z99.2 Dependence on renal dialysis; Z79.899 Other long term (current) drug therapy
CPT/HCPCS: 36415; 70450; 72125; 80048; 80076; 80307; 81001; 82550; 83735; 84100; 85025; 86850; 86900; 86901; 86923; 87086; 90999; 93005; 99285; J1170; J1200; J1642; J1643; J1885; J2270; P9016

== ENCOUNTER 2023-03-25 15:24 | Emergency (ER) | payer OTHER, SELFPAY ==
[2023-03-25 15:34] VITALS: BP 157/95; BP 164/114; PULSE 91; PULSE 97; RESP 18; TEMP 37.3; O2SAT 100; O2SAT 99; BMI 29.2
--- NOTE | 2023-03-25 16:35 | ED.WEAKNESS ---
HPI - Weakness General Chief complaint: Weakness Stated complaint: nausea, BL lower leg pain, seen recently Time Seen by Provider: 03/25/23 15:36 History of Present Illness HPI Narrative: Patient is a 27-year-old male presented today after having a syncopal episode at the dialysis center. Patient has a history of end-stage renal disease normally gets dialysis Saturday presented today getting dialysis felt very weak had bilateral leg pain then subsequently passed out. Denies any chest pain or diaphoresis no fever no chills feels very nauseous he is from home. Vomited multiple times. Never had any bowel obstructions in the past. Patient also complaining of bilateral leg pain. The leg pain has been more chronic in nature. It is not associated with any fever or chills. There has been no trauma. There is no redness. There is no fever. Related Data Home Medications Medication Instructions Recorded Confirmed acetaminophen 500 mg tablet 1,000 mg PO TID PRN pain 03/13/23 03/22/23 alprazolam 0.5 mg tablet 0.5 mg PO BID PRN anxiety 03/13/23 03/22/23 atorvastatin 20 mg tablet 20 mg PO DAILY 03/13/23 03/22/23 calcitriol 0.5 mcg capsule 0.5 mcg PO MOWEFR 03/13/23 03/22/23 calcium carbonate 500 mg calcium 500 mg PO DAILY PRN Acid Reflux 03/13/23 03/22/23 (1,250 mg) chewable tablet carvedilol 25 mg tablet 25 mg PO BID 03/13/23 03/22/23 cinacalcet 90 mg tablet 90 mg PO MOWEFR 03/13/23 03/22/23 clonidine 0.3 mg/24 hr weekly 1 patch topical SA@0900 03/13/23 03/22/23 transdermal patch clonidine HCl 0.2 mg tablet 0.2 mg PO DAILY PRN Blood Pressure 03/13/23 03/22/23 ergocalciferol (vitamin D2) 1,250 1,250 mcg PO FR 03/13/23 03/22/23 mcg (50,000 unit) capsule (Vitamin D2) gabapentin 100 mg capsule 200 mg PO BID 03/13/23 03/22/23 hydrocortisone 0.5 % topical cream 1 appl topical DAILY PRN Rash 03/13/23 03/22/23 ketoconazole 2 % topical cream 1 appl topical DAILY PRN Rash 03/13/23 03/22/23 lactulose 10 gram/15 mL oral 15 ml PO DAILY PRN Constipation 03/13/23 03/22/23 solution losartan 100 mg tablet 100 mg PO DAILY 03/13/23 03/22/23 nifedipine 60 mg tablet,extended 60 mg PO DAILY 03/13/23 03/22/23 release nitroglycerin 0.4 mg sublingual 0.4 mg sublingual Q5M PRN Chest 03/13/23 03/22/23 tablet Pain ondansetron HCl 4 mg tablet 4 mg PO Q8H PRN Nausea 03/13/23 03/22/23 pantoprazole 40 mg tablet,delayed 40 mg PO DAILY@30 03/13/23 03/22/23 release polyethylene glycol 3350 17 17 g PO DAILY PRN Constipation 03/13/23 03/22/23 gram/dose oral powder sennosides 8.6 mg-docusate sodium 2 tab PO BID 03/13/23 03/22/23 50 mg tablet (Senna Plus) sertraline 50 mg tablet 50 mg PO DAILY 03/13/23 03/22/23 sevelamer carbonate 800 mg tablet 2,400 mg PO TIDWMEAL 03/13/23 03/22/23 levetiracetam 500 mg tablet 1,000 mg PO BID 03/22/23 03/22/23 Previous Rx's Medication Instructions Recorded hydralazine 50 mg tablet 50 mg PO TID #90 tabs 03/24/23 Allergies Allergy/AdvReac Type Severity Reaction Status Date / Time lorazepam [From Ativan] AdvReac Shakiness Verified 03/20/23 23:33 metoclopramide [From Reglan] AdvReac Nausea Verified 03/20/23 23:33 Review of Systems Review of Systems: Positive abdominal pain, positive bilateral leg swelling Yes all other systems are reviewed and are negative PMFSH Past Medical History Attestation statement: The following information was validated with the patient. Medical History Back pain Bilateral lower extremity pain End stage chronic kidney disease ESRD on dialysis Seizure disorder Social History Social History Household Members: Family Household Members Other:: mom, step dad, sister and nephew Housing: House Do you presently have visiting nurse or other home services: No Alcohol intake: never Patient Tobacco Use Status: Never used Tobacco Substance Use Type: Marijuana Advance Directives: No Advance Directives Information Provided: No service: No Physical Exam Vital Signs: Vital Signs: Last Vital Signs Temp 99.1 F 03/25/23 15:34 Pulse 91 03/25/23 15:34 Resp 18 03/25/23 15:34 BP 164/114 H 03/25/23 15:34 Pulse Ox 100 03/25/23 15:34 O2 Del Method Room Air 03/25/23 15:34 BMI result Body Mass Index 29.2 Appearance: Alert. Oriented X3. No acute distress. Eyes: Pupils equal, round and reactive to light. ENT: Pharynx normal. Neck: Normal inspection. Neck supple. No lymph nodes noted. No crepitus CVS: Normal heart rate and rhythm. Pulses normal. Normal S1 and S2 Respiratory: No respiratory distress. Breath sounds normal. No Wheezing. No rales Abdomen: Soft and nontender. No rigidity. No distention. good BS x4 Skin: Skin warm and dry. Normal skin color. Normal skin turgor. Extremities: No lower extremity edema. Neurovascular intact to all extremities. No Lacerations. No Rash Neuro: Oriented X 3. No motor deficit. No sensory deficit. Moving all extermities. No slurred speech Medications Administered Discontinued Medications Generic Name Dose Route Start Last Admin Trade Name Freq PRN Reason Stop Dose Admin Hydromorphone HCl 0.5 mg 03/25/23 16:32 03/25/23 17:49 Hydromorphone Hcl 0.5 Mg/0.5 Ml Syringe IVPUSH 03/25/23 16:33 0.5 mg ONCE ONE Administration Protocol Hydromorphone HCl 0.5 mg 03/25/23 18:52 03/25/23 19:03 Hydromorphone Hcl 0.5 Mg/0.5 Ml Syringe IVPUSH 03/25/23 18:53 0.5 mg ONCE ONE Administration Protocol Ondansetron HCl 4 mg 03/25/23 16:32 03/25/23 17:49 Ondansetron Hcl 4 Mg/2 Ml Vial IVPUSH 03/25/23 16:33 4 mg ONCE ONE Administration Medical Decision Making Medical Decision Making [facility] Narrative: Positive syncopal episode. Patient has a history of end-stage renal disease. EKG not send honest with ACS. Patient's electrolytes consistent with end-stage renal disease. Patient's potassium is 4.1. Creatinine is in the 6 range. Consistent with just getting dialysis. Chest x-ray showed no pneumonia no CHF. CT scan of the abdomen pelvis showed no obstruction no abscess no perforation. Patient's nausea improved with Zofran. Question cause of patient's syncope. Will admit for observation overnight in stable condition patient complaining of bilateral lower extremity pain. Electrolytes are okay. Pain more chronic in nature. Given pain medication with moderate relief. Differential Diagnosis Differential Diagnoses: The differential diagnosis associated with the presentation includes Electrolyte abnormality, syncope, dehydration, fluid overload, cardiac arrhythmia Consult Healthcare Provider Management of the patient was discussed with: Hospitalist Lab Data [facility] Lab Attestation statement: I reviewed the patient's lab results. 03/25/23 18:03 03/25/23 18:03 Labs: Lab Results 03/25/23 03/25/23 03/25/23 Range/Units 18:03 18:03 18:03 WBC 6.4 (4.8-10.8) X10*3/uL RBC 3.25 L (4.60-5.80) X10*6/uL Hgb 9.6 L (14.0-18.0) g/dl Hct 28.1 L (42.0-52.0) % MCV 86.5 (80.0-98.0) fL MCH 29.5 (27.0-33.0) pg MCHC 34.2 (31.0-36.0) g/dl RDW 13.2 (11.0-16.0) % Plt Count 107 L (160-400) X10*3/uL MPV 8.2 L (9.4-12.4) fL Immature Gran % (Auto) 0.8 H (0.0-0.4) % Neut % (Auto) 70.5 (45-73) % Lymph % (Auto) 11.1 L (20-40) % [place] % (Auto) 12.4 H (2-11) % Eos % (Auto) 4.7 H (0-4) % Baso % (Auto) 0.5 (0-2) % Lymph # (Auto) 0.7 L (1.2-4.9) X10*3/uL [place] # (Auto) 0.8 (0.1-1.2) X10*3/uL Eos # (Auto) 0.3 (0.0-0.4) X10*3/uL Baso # (Auto) 0.0 (0.0-0.2) X10*3/uL Abs Immat Gran (auto) 0.05 H (0.00-0.03) X10*3/uL Absolute Neuts (auto) 4.5 (2.0-8.3) x10*3/uL Absolute Nucleated RBC 0.000 (0.0-0.012) X10*3/uL Nucleated RBC % (auto) 0.0 (0.0-0.2) /100WBC Sodium 141 (135-145) mmol/L Potassium 4.1 (3.3-5.1) mmol/L Chloride 104 (96-108) mmol/L Carbon Dioxide 27 (22-29) mmol/L Anion Gap 14 (12-20) BUN 22 H (9-16) mg/dL Creatinine 6.47 H* (0.5-1.4) mg/dL Estim Creat Clear Calc 20.5 Estimated GFR 10 Random Glucose 86 (60-115) mg/dL Calcium 8.7 D Cancelled (8.4-10.2) mg/dL Magnesium 1.9 (1.6-2.6) mg/dL Total Bilirubin 0.5 (0.0-1.0) mg/dL Direct Bilirubin 0.1 (0.0-0.5) mg/dL AST 11 (5-37) U/L ALT 7 (0-40) U/L Alkaline Phosphatase 45 (39-117) U/L Total Protein 5.6 L (6.5-8.0) g/dL Albumin 3.3 L (3.5-5.0) g/dL Lipase 17 (8-78) U/L Independent Interpretation I performed an independent interpretation of an: EKG Interpretation: Sinus rhythm heart rate is 65 FL QRS QT within normal limits is no acute ST segment elevation. External Record Review External record reviewed: Inpatient record Discharge Plan Discharge Clinical Impression: Syncope Patient Disposition: Home, Self-Care Prescriptions: No Action carvedilol 25 mg tablet 25 mg PO BID atorvastatin 20 mg tablet 20 mg PO DAILY ondansetron HCl 4 mg tablet 4 mg PO Q8H PRN (Reason: Nausea) sennosides-docusate sodium [Senna Plus] 8.6-50 mg tablet 2 tab PO BID acetaminophen 500 mg tablet 1,000 mg PO TID PRN (Reason: pain) alprazolam 0.5 mg tablet 0.5 mg PO BID PRN (Reason: anxiety) clonidine HCl 0.2 mg tablet 0.2 mg PO DAILY PRN (Reason: Blood Pressure) pantoprazole 40 mg tablet,delayed release (DR/EC) 40 mg PO DAILY@0630 nitroglycerin 0.4 mg tablet, sublingual 0.4 mg sublingual Q5M PRN (Reason: Chest Pain) calcium carbonate 500 mg calcium (1,250 mg) Tablet,Chewable 500 mg PO DAILY PRN (Reason: Acid Reflux) clonidine 0.3 mg/24 hr patch weekly 1 patch topical SA@0900 gabapentin 100 mg capsule 200 mg PO BID polyethylene glycol 3350 17 gram/dose powder 17 g PO DAILY PRN (Reason: Constipation) nifedipine 60 mg tablet extended release 60 mg PO DAILY losartan 100 mg tablet 100 mg PO DAILY sertraline 50 mg tablet 50 mg PO DAILY cinacalcet 90 mg Tablet 90 mg PO MOWEFR Rx Instructions: only on dialysis days lactulose 10 gram/15 mL solution 15 ml PO DAILY PRN (Reason: Constipation) sevelamer carbonate 800 mg tablet 2,400 mg PO TIDWMEAL hydrocortisone 0.5 % Cream 1 appl TOPICAL DAILY PRN (Reason: Rash) Rx Instructions: face calcitriol 0.5 mcg Capsule 0.5 mcg PO MOWEFR Rx Instructions: administer after dialysis on dialysis days ergocalciferol (vitamin D2) [Vitamin D2] 1,250 mcg (50,000 unit) Capsule 1,250 mcg PO FR ketoconazole 2 % Cream 1 appl TOPICAL DAILY PRN (Reason: Rash) Rx Instructions: face levetiracetam 500 mg tablet 1,000 mg PO BID hydralazine 50 mg Tablet 50 mg PO TID Qty: 90 0RF Protocol: Hold for SBP< HOLD for SBP < : 90
[2023-03-25 18:32] LABS: Alanine Aminotransferase 7 U/L (0-40); Albumin Level 3.3 g/dL (3.5-5.0); Alkaline Phosphatase 45 U/L (39-117); Anion Gap 14 (12-20); Aspartate Amino Transferase 11 U/L (5-37); Bilirubin Direct 0.1 mg/dL (0.0-0.5); Bilirubin Total 0.5 mg/dL (0.0-1.0); Blood Urea Nitrogen 22 mg/dL (9-16); Calcium 8.7 mg/dL (8.4-10.2); Carbon Dioxide 27 mmol/L (22-29); Chloride 104 mmol/L (96-108); Creatinine Clr Calc Pharmacy 20.5; Estimated Glomerular Filt Rate 10; Glucose Random 86 mg/dL (60-115); Lipase 17 U/L (8-78); Magnesium 1.9 mg/dL (1.6-2.6); Potassium 4.1 mmol/L (3.3-5.1); Sodium 141 mmol/L (135-145); Total Protein 5.6 g/dL (6.5-8.0)
[2023-03-25 20:41] VITALS: BP 158/118; PULSE 71; RESP 18; O2SAT 98
--- NOTE | 2023-03-25 20:54 | PHA.MEDREC ---
Pharmacy Consult ? Medication Reconciliation Pharmacy has completed the medication reconciliation. Spoke to mother and patient. Per patient, he is now on hydralazine 50mg and nifedipine 120mg sandra
== END 2023-03-25 20:43 | disposition home or self-care (01) ==
PROVIDERS: Emergency Provider Emergency Medicine Emergency Medical Services; PCP Nurse Practitioner Family
DX: R55 Syncope and collapse (principal); R53.1 Weakness; I12.0 Hypertensive chronic kidney disease with stage 5 chronic kidney disease or end stage renal disease; N18.6 End stage renal disease; Z99.2 Dependence on renal dialysis; M79.605 Pain in left leg; M79.604 Pain in right leg; Z79.899 Other long term (current) drug therapy
CPT/HCPCS: 36415; 71045; 74176; 80048; 80076; 83690; 83735; 85025; 93005; 96374; 96375; 96376; 99284; J1170; J2405

== ENCOUNTER 2023-03-27 20:58 | Emergency (ER) | payer OTHER, SELFPAY ==
[2023-03-27 21:01] VITALS: BP 150/90; BP 180/115; PULSE 87; PULSE 88; RESP 16; TEMP 36.9; O2SAT 98; BMI 29.2
[2023-03-27 21:06] VITALS: BP 180/115; PULSE 78; RESP 16; O2SAT 99
--- NOTE | 2023-03-27 21:20 | ED.ABDPAIN ---
HPI - Abdominal Pain General Chief Complaint: Abdominal Pain Stated Complaint: abd pain Time Seen by Provider: 03/27/23 21:15 Source: patient Mode of arrival: EMS Limitations: no limitations History of Present Illness HPI narrative: Patient history of hypertension end-stage renal disease seizure disorder been to our ER multiple times at least 6 times since 03/12/2023 with multiple nonspecific complaints last ED visit was on 03/25. Today he comes as complaining of diffuse lower abdominal discomfort with bilateral testicle pain and dysuria for last few days patient had CT scan of the abdomen on 03/25 which was negative no fever no nausea no vomiting patient had dialysis today Related Data Home Medications Medication Instructions Recorded Confirmed acetaminophen 500 mg tablet 1,000 mg PO TID PRN pain 03/13/23 03/25/23 alprazolam 0.5 mg tablet 0.5 mg PO BID PRN anxiety 03/13/23 03/25/23 atorvastatin 20 mg tablet 20 mg PO BEDTIME 03/13/23 03/25/23 calcitriol 0.5 mcg capsule 0.5 mcg PO MOWEFR@1645 03/13/23 03/25/23 calcium carbonate 500 mg calcium 500 mg PO DAILY PRN Acid Reflux 03/13/23 03/25/23 (1,250 mg) chewable tablet carvedilol 25 mg tablet 25 mg PO BID 03/13/23 03/25/23 cinacalcet 90 mg tablet 90 mg PO MOWEFR@1645 03/13/23 03/25/23 clonidine 0.3 mg/24 hr weekly 1 patch topical SA@0900 03/13/23 03/25/23 transdermal patch clonidine HCl 0.2 mg tablet 0.2 mg PO DAILY PRN Blood Pressure 03/13/23 03/25/23 ergocalciferol (vitamin D2) 1,250 1,250 mcg PO FR 03/13/23 03/25/23 mcg (50,000 unit) capsule (Vitamin D2) gabapentin 100 mg capsule 200 mg PO BID 03/13/23 03/25/23 hydrocortisone 0.5 % topical cream 1 appl topical DAILY PRN Rash 03/13/23 03/25/23 ketoconazole 2 % topical cream 1 appl topical DAILY PRN Rash 03/13/23 03/25/23 lactulose 10 gram/15 mL oral 15 ml PO DAILY PRN Constipation 03/13/23 03/25/23 solution losartan 100 mg tablet 100 mg PO DAILY 03/13/23 03/25/23 nifedipine 60 mg tablet,extended 120 mg PO DAILY 03/13/23 03/25/23 release nitroglycerin 0.4 mg sublingual 0.4 mg sublingual Q5M PRN Chest 03/13/23 03/25/23 tablet Pain ondansetron HCl 4 mg tablet 4 mg PO Q8H PRN Nausea 03/13/23 03/25/23 pantoprazole 40 mg tablet,delayed 40 mg PO DAILY@0630 03/13/23 03/25/23 release polyethylene glycol 3350 17 17 g PO DAILY PRN Constipation 03/13/23 03/25/23 gram/dose oral powder sennosides 8.6 mg-docusate sodium 2 tab PO BID 03/13/23 03/25/23 50 mg tablet (Senna Plus) sertraline 50 mg tablet 50 mg PO DAILY 03/13/23 03/25/23 sevelamer carbonate 800 mg tablet 2,400 mg PO TIDWMEAL 03/13/23 03/25/23 levetiracetam 500 mg tablet 1,000 mg PO BID 03/22/23 03/25/23 Previous Rx's Medication Instructions Recorded hydralazine 50 mg tablet 50 mg PO TID #90 tabs 03/24/23 cefuroxime axetil 250 mg tablet 250 mg PO BID 7 days #14 tabs 03/27/23 Allergies Allergy/AdvReac Type Severity Reaction Status Date / Time lorazepam [From Ativan] AdvReac Shakiness Verified 03/20/23 23:33 metoclopramide [From Reglan] AdvReac Nausea Verified 03/20/23 23:33 Review of Systems Review of Systems Yes all other systems are reviewed and are negative PMFSH Past Medical History Medical History Back pain Bilateral lower extremity pain End stage chronic kidney disease ESRD on dialysis Seizure disorder Social History Social History Household Members: Family Household Members Other:: mom, step dad, sister and nephew Housing: House Do you presently have visiting nurse or other home services: No Alcohol intake: never Patient Tobacco Use Status: Never used Tobacco Smoked in Last 30 Days: No Use of substances other than those prescribed or required for medical reasons: No Substance Use Type: Marijuana Advance Directives: No Advance Directives Information Provided: Yes service: No Physical Exam ED Vital Signs: Vital Signs - 24 hr 03/27/23 21:01 03/27/23 21:06 Temperature 98.5 F Pulse Rate 87 78 Respiratory Rate 16 16 Blood Pressure 180/115 H 180/115 H Pulse Oximetry 98 99 Oxygen Delivery Method Room Air Room Air BMI result Body Mass Index 29.2 Appearance: Alert. Oriented X3. No acute distress. ENT: Pharynx normal. Oral Mucosa moist Neck: Normal inspection. Neck supple. CVS: Normal heart rate and rhythm. Pulses normal. Respiratory: No respiratory distress. Equal air entry bilateral, no wheezing/rales/rhonchi Abdomen: Soft , mild suprapubic tenderness, Bowel sounds are present, no mass palpable, no CVA tenderness Skin: Skin warm and dry. Normal skin color. Normal skin turgor. Extremities: No lower extremity edema. No calf tenderness Neuro: Oriented X 3. No motor deficit. Medical Decision Making Medical Decision Making [facility] Narrative: Patient likely with UTI given Ceftin vitals are stable discharge patient Lab Data [facility] Lab Attestation statement: I reviewed the patient's lab results. Labs: Lab Results 03/27/23 Range/Units 22:09 Urine Color Yellow Urine Appearance Clear Urine pH 7.5 (5.0-9.0) Ur Specific Briggs <= 1.005 (1.005-1.025) Urine Protein 300 (3+) H (Neg-Trace) mg/dL Urine Glucose (UA) Negative (Negative) mg/dL Urine Ketones Negative (Negative) mg/dL Urine Blood Trace H (Negative) Urine Nitrite Negative (Negative) Ur Leukocyte Esterase Moderate (2+) H (Negative) Urine RBC 0-2 (0-2) /HPF Urine WBC 21-50 H (0-5) /HPF Ur Squamous Epith Cells 3-5 (0-2) /HPF Urine Bacteria None Seen (None Seen) Hyaline Casts 3-5 (0-2) /LPF Discharge Plan Discharge Clinical Impression: Acute UTI Patient Disposition: Home, Self-Care Instructions: Urinary Tract Infection in Men (ED) Additional Instructions: Take antibiotic as prescribed Follow up with PCP Likely have infection the urine as a cause for the pain Prescriptions: New cefuroxime axetil 250 mg tablet 250 mg PO BID 7 Days Qty: 14 0RF No Action carvedilol 25 mg tablet 25 mg PO BID atorvastatin 20 mg tablet 20 mg PO BEDTIME ondansetron HCl 4 mg tablet 4 mg PO Q8H PRN (Reason: Nausea) sennosides-docusate sodium [Senna Plus] 8.6-50 mg tablet 2 tab PO BID acetaminophen 500 mg tablet 1,000 mg PO TID PRN (Reason: pain) alprazolam 0.5 mg tablet 0.5 mg PO BID PRN (Reason: anxiety) clonidine HCl 0.2 mg tablet 0.2 mg PO DAILY PRN (Reason: Blood Pressure) pantoprazole 40 mg tablet,delayed release (DR/EC) 40 mg PO DAILY@0630 nitroglycerin 0.4 mg tablet, sublingual 0.4 mg sublingual Q5M PRN (Reason: Chest Pain) calcium carbonate 500 mg calcium (1,250 mg) Tablet,Chewable 500 mg PO DAILY PRN (Reason: Acid Reflux) clonidine 0.3 mg/24 hr patch weekly 1 patch topical SA@0900 gabapentin 100 mg capsule 200 mg PO BID polyethylene glycol 3350 17 gram/dose powder 17 g PO DAILY PRN (Reason: Constipation) nifedipine 60 mg tablet extended release 120 mg PO DAILY losartan 100 mg tablet 100 mg PO DAILY sertraline 50 mg tablet 50 mg PO DAILY cinacalcet 90 mg Tablet 90 mg PO MOWEFR@1644 Rx Instructions: only on dialysis days lactulose 10 gram/15 mL solution 15 ml PO DAILY PRN (Reason: Constipation) sevelamer carbonate 800 mg tablet 2,400 mg PO TIDWMEAL hydrocortisone 0.5 % Cream 1 appl TOPICAL DAILY PRN (Reason: Rash) Rx Instructions: face calcitriol 0.5 mcg Capsule 0.5 mcg PO MOWEFR@1645 Rx Instructions: administer after dialysis on dialysis days ergocalciferol (vitamin D2) [Vitamin D2] 1,250 mcg (50,000 unit) Capsule 1,250 mcg PO FR ketoconazole 2 % Cream 1 appl TOPICAL DAILY PRN (Reason: Rash) Rx Instructions: face levetiracetam 500 mg tablet 1,000 mg PO BID hydralazine 50 mg Tablet 50 mg PO TID Qty: 90 0RF Protocol: Hold for SBP< HOLD for SBP < : 90
[2023-03-27 22:00] VITALS: BP 160/97; PULSE 82; RESP 16; O2SAT 98
== END 2023-03-27 23:34 | disposition home or self-care (01) ==
PROVIDERS: Emergency Provider Internal Medicine
DX: N39.0 Urinary tract infection, site not specified (principal); N50.812 Left testicular pain; N50.811 Right testicular pain; I12.0 Hypertensive chronic kidney disease with stage 5 chronic kidney disease or end stage renal disease; N18.6 End stage renal disease; Z99.2 Dependence on renal dialysis; Z79.899 Other long term (current) drug therapy
CPT/HCPCS: 81001; 87086; 99283; 99284

== ENCOUNTER 2023-04-19 15:45 | Inpatient (IN) | payer OTHER, SELFPAY ==
[2023-04-19] VITALS (7 sets, daily range): BP systolic 129–148; BP diastolic 92–107; PULSE 80–99; RESP 15–18; TEMP 37–37.4; O2SAT 100; BMI 28.4
--- NOTE | ~2023-04-19 | CT_ITS ---
EXAMINATION: CT abdomen pelvis w IV con CLINICAL INFORMATION: Reason for Exam ? lower gi bleed COMPARISON: No prior CT available for comparison. TECHNIQUE: Multidetector volumetric imaging was performed from the superior aspect of the liver through the pubic symphysis 85 mL Omnipaque 350 injected Sagittal and coronal reformatted images were obtained on the technologist's workstation. This CT examination was performed using dose optimization techniques as appropriate, variously including the following: *Automated exposure control *Adjustment of mA and/or kV according to patient size (this includes techniques or standardized protocols for targeted exams where dose is matched to indication/reason for exam; i.e. extremities or head) *Use of iterative reconstruction technique DLP: 690 mGy-cm FINDINGS: LOWER THORAX: Included lung bases are clear. HEPATOBILIARY: No focal hepatic lesions. No biliary ductal dilatation. GALLBLADDER: There is 8 mm structure within the gallbladder likely gallstone. Unchanged. SPLEEN: Spleen is normal in size. PANCREAS: No focal mass or ductal dilatation. STOMACH AND GASTROINTESTINAL TRACT: Stomach is grossly unremarkable. No evidence of bowel obstruction. Appendix might have been removed surgical suture on the cecal wall at the expected location of the appendix. There is thickening of the distal sigmoid colon and rectum, suspect possible proctitis. ADRENALS: No adrenal nodules. KIDNEYS/URETERS: Bilaterally small kidneys. No hydronephrosis, stones or solid mass lesions. URINARY BLADDER: Urinary bladder is nondistended. PELVIC VISCERA: There is a free fluid in the dependent portion of the pelvis. There is no free air. PERITONEUM: There is peritoneal catheter probably dialysis catheter the tip of which is in the pelvis. There is a small amount of free fluid in the pelvis. This could be from dialysis, in the right clinical setting cannot rule out inflammation or peritendinitis. LYMPH NODES: No lymphadenopathy. VASCULAR:Abdominal aorta normal in size, no aneurysm found. BONES, ABDOMINAL WALL AND SOFT TISSUES: Age-appropriate changes of the spine and skeletal system, no destructive osteolytic or osteosclerotic bone lesion found CT/CT abdomen pelvis w IV con IMPRESSION: * There is circumferential thickening of the distal sigmoid colon and rectum, suspect underlying inflammation possible proctitis. * There is a small amount of free fluid in the dependent portion of the pelvis. This could be from dialysis, in the right clinical setting cannot rule out inflammation or peritendinitis. * There is a peritoneal catheter probably dialysis catheter the tip of which is in the pelvis. * Cholelithiasis.
--- NOTE | ~2023-04-19 | XR_ITS ---
EXAMINATION: XR chest 1V CLINICAL INFORMATION: Reason for Exam chest discomfort COMPARISON: 03/25/2023 TECHNIQUE: XR chest 1V Tubes and lines: Port-A-Cath in place the tip of which projecting over the SVC/RA junction. Left subclavian central line catheter tip projecting over the right atrium unchanged. Lungs and pleura: Both lungs are clear. Heart and mediastinum: The mediastinum is within normal limits.. Bones/soft tissue: Skeletal structures included are normal for patient's age. XR/XR chest 1V IMPRESSION: No radiographic evidence of acute cardiopulmonary disease.
--- NOTE | ~2023-04-19 | CT_ITS ---
CT head/brain wo IV con CLINICAL INFORMATION: Reason for Exam severe headache syncope COMPARISON: Multiple prior CTs most recent 03/22/2023 TECHNIQUE: Department standard protocol. This CT examination was performed using dose optimization techniques as appropriate, variously including the following: *Automated exposure control *Adjustment of mA and/or kV according to patient size (this includes techniques or standardized protocols for targeted exams where dose is matched to indication/reason for exam; i.e. extremities or head) *Use of iterative reconstruction technique DLP: 708 mGy-cm FINDINGS: CEREBRAL HEMISPHERES: Redemonstration of intraparenchymal and subarachnoid calcification in the inferior aspect of the right frontal lobe, this has not changed from prior CT exams, previously evaluated on MRI from 03/15/2023 and found to correlate most likely to dystrophic calcification associated with DVAs. There is no new evidence of intra-axial or extra-axial mass, hemorrhage or acute infarct. BRAIN PARENCHYMA: Normal vang-white matter differentiation. SUBDURAL SPACE: No bleed. BASAL GANGLIA AND PINEAL GLAND: Unremarkable VENTRICLES: Symmetric and normal in size. CEREBELLUM AND BRAINSTEM: No space-occupying mass, hemorrhage or acute infarct. CEREBELLOPONTINE ANGLES: No lesion found. ORBITS: No intraorbital mass. VESSELS: Unremarkable SKULL BASE: Unremarkable INCLUDED SINUSES AT SKULL BASE: Clear SKULL AND SKIN: No fracture or bone lesion found. CT/CT head/brain wo IV con IMPRESSION: * No CT evidence of intracranial space-occupying mass, bleed or infarct. * Redemonstration of intraparenchymal and subarachnoid calcification in the inferior aspect of the right frontal lobe, this has not changed from prior CT exams, previously evaluated on MRI from 03/22/2023 and found to correlate most likely dystrophic calcification associated with DVAs.
--- NOTE | 2023-04-19 17:23 | ED.GENADULT ---
HPI - General Adult General Chief complaint: General Medical Stated complaint: coming from dialysis, weakness,headache Time Seen by Provider: 04/19/23 16:41 Source: patient and EMS Mode of arrival: EMS Limitations: no limitations History of Present Illness HPI narrative: 27 year old male hx of ESRD on dialysis ( M,V,W), seizure disorder, b/l lower extremity edema presenting to the emergency department via ambulance for syncopal episode while at dialysis earlier today ( received 3/4 hours of dialysis). Patient reports prior to syncopized Ng he had a severe frontal headache, he tells me at times he gets them with dialysis however today feels different, severe frontal, constant, without visual disturbances or dizziness, he reports staff members told him he passed out for a few minutes and then woke up. Patient tells me he just feels overall unwell. Denies chest pain, shortness of breath, nausea, vomiting, abdominal pain, vision changes, dizziness and weakness. NIH stroke scale 0. Related Data Home Medications Medication Instructions Recorded Confirmed acetaminophen 500 mg tablet 1,000 mg PO TID PRN pain 03/13/23 04/19/23 alprazolam 0.5 mg tablet 0.5 mg PO BID PRN anxiety 03/13/23 04/19/23 atorvastatin 20 mg tablet 20 mg PO BEDTIME 03/13/23 04/19/23 calcitriol 0.5 mcg capsule 0.5 mcg PO MOWEFR@1645 03/13/23 04/19/23 calcium carbonate 500 mg calcium 500 mg PO DAILY PRN Acid Reflux 03/13/23 04/19/23 (1,250 mg) chewable tablet carvedilol 25 mg tablet 25 mg PO BID 03/13/23 04/19/23 cinacalcet 90 mg tablet 90 mg PO MOWEFR@1645 03/13/23 04/19/23 clonidine 0.3 mg/24 hr weekly 1 patch topical SA@0900 03/13/23 04/19/23 transdermal patch clonidine HCl 0.2 mg tablet 0.2 mg PO DAILY PRN Blood Pressure 03/13/23 04/19/23 ergocalciferol (vitamin D2) 1,250 1,250 mcg PO FR 03/13/23 04/19/23 mcg (50,000 unit) capsule (Vitamin D2) gabapentin 100 mg capsule 200 mg PO BID 03/13/23 04/19/23 hydrocortisone 0.5 % topical cream 1 appl topical DAILY PRN Rash 03/13/23 04/19/23 ketoconazole 2 % topical cream 1 appl topical DAILY PRN Rash 03/13/23 04/19/23 lactulose 10 gram/15 mL oral 15 ml PO DAILY PRN Constipation 03/13/23 04/19/23 solution losartan 100 mg tablet 100 mg PO DAILY 03/13/23 04/19/23 nifedipine 60 mg tablet,extended 120 mg PO DAILY 03/13/23 04/19/23 release nitroglycerin 0.4 mg sublingual 0.4 mg sublingual Q5M PRN Chest 03/13/23 04/19/23 tablet Pain ondansetron HCl 4 mg tablet 4 mg PO Q8H PRN Nausea 03/13/23 04/19/23 pantoprazole 40 mg tablet,delayed 40 mg PO DAILY@0630 03/13/23 04/19/23 release polyethylene glycol 3350 17 17 g PO DAILY PRN Constipation 03/13/23 04/19/23 gram/dose oral powder sennosides 8.6 mg-docusate sodium 2 tab PO BID 03/13/23 04/19/23 50 mg tablet (Senna Plus) sertraline 50 mg tablet 50 mg PO DAILY 03/13/23 04/19/23 sevelamer carbonate 800 mg tablet 2,400 mg PO TIDWMEAL 03/13/23 04/19/23 levetiracetam 500 mg tablet 1,000 mg PO BID 03/22/23 04/19/23 vitamin B complex and vitamin C 1 cap PO DAILY 04/19/23 04/19/23 no.20-folic acid 1 mg capsule (Renal Caps) Previous Rx's Medication Instructions Recorded hydralazine 50 mg tablet 50 mg PO TID #90 tabs 03/24/23 Allergies Allergy/AdvReac Type Severity Reaction Status Date / Time lorazepam [From Ativan] AdvReac Shakiness Verified 03/20/23 23:33 metoclopramide [From Reglan] AdvReac Nausea Verified 03/20/23 23:33 Review of Systems Review of Systems: Constitutional : No Weight loss, No Fever, No Chills, + Fatigue, + Malaise ENT/Mouth : No sore throat, No Rhinorrhea Eyes: No Eye Pain, No Swelling, No Redness Cardiovascular : No Chest Pain, No SOB, No Dyspnea on Exertion, No Orthopnea, No Edema, No Palpitations Respiratory : No Cough, No Sputum, No Wheezing Gastrointestinal : No Nausea, No Vomiting, No Diarrhea, No Constipation, No abdominal Pain, No Hematochezia, No Melena Genitourinary : No Dysuria, No Urinary Frequency, No Hematuria, Musculoskeletal : No joint pain, No Myalgias, No Joint Swelling Skin : No Skin Lesions, No rash Neuro : No Weakness, No Numbness, No Dizziness, + Headache Psych : No Anxiety/Panic, No Depression All other systems reviewed and are negative Yes all other systems are reviewed and are negative [facility] Past Medical History Attestation statement: The following information was validated with the patient. Source: old records reviewed and nursing notes reviewed Medical History Anemia Back pain Bilateral lower extremity pain End stage chronic kidney disease ESRD on dialysis HTN (hypertension) Seizure disorder Social History Social History Household Members: Family Household Members Other:: mom, step dad, sister and nephew Housing: House Do you presently have visiting nurse or other home services: No Alcohol intake: former Patient Tobacco Use Status: Never used Tobacco Smoked in Last 30 Days: No Substance Use Type: Marijuana Substance Use Frequency: Daily Advance Directives: No Advance Directives Information Provided: Yes service: No Physical Exam ED Vital Signs: Vital Signs - 24 hr 04/19/23 16:00 04/19/23 16:04 Temperature 98.7 F 98.7 F Pulse Rate 83 86 Respiratory Rate 18 15 Blood Pressure 140/93 H 140/93 H Pulse Oximetry 100 100 Oxygen Delivery Method Room Air Room Air BMI result Body Mass Index 28.4 vss Appearance: Alert.? Oriented X3.? No acute distress.? + Patient appears pale diaphoretic. Head: Normocephalic, atraumatic, no step-offs or deformities Eyes: Pupils equal, round and reactive to light.? Neck: Normal inspection.? Neck supple.? CVS: Normal heart rate and rhythm.? Pulses normal.? + Port-A-Cath on the right anterior chest wall, hemodialysis port on the left chest wall. Respiratory: No respiratory distress.? Breath sounds normal.? Abdomen: Soft and nontender.?+ Peritoneal dialysis port in patient's abdomen Skin: Skin warm and dry.? Normal skin color.? Normal skin turgor.? Extremities: No lower extremity edema.? No calf ttp. 5/5 strength to bilateral upper and lower extremities Neuro: Oriented X 3.? No motor deficit.? No sensory deficit. CN 2-12 intact Course Reevaluation(s) Reevaluation #1: EKG nonischemic, chest x-ray unremarkable. Labs, imaging, Urine, blood cultures and lactic acid pending. Time: 18:12 Reevaluation #2: received a critical call from the lab, patient's hemoglobin and hematocrit low. OBS ordered as well as type and screen. Time: 18:28 Reevaluation #3: Patient's hemoglobin 6.7, hematocrit 19.8, normocytic anemia noted, OBS obtained, pending results. Patient gave me written and verbal consent for blood, transfusion. 1 unit packed red blood cells ordered. Type and screen pending. Normal lactic acid. Chemistry pending. Sign out to night provider [facility] pending chemistry, repeat CBC, CT head, abdomen and pelvis. Plan is for hospital admission. Time: 18:44 Medications Administered Discontinued Medications Generic Name Dose Route Start Last Admin Trade Name Freq PRN Reason Stop Dose Admin Morphine Sulfate 4 mg 04/19/23 17:36 04/19/23 18:26 Morphine Sulfate 4 Mg/Ml Cartridge IVPUSH 04/19/23 17:37 4 mg ONCE ONE Administration Protocol Medical Decision Making Medical Decision Making [facility] Narrative: [id number]-year-old male presents with fatigue, malaise, headache, syncopal episode at dialysis Physical exam patient appears pale, diaphoretic, regular rate and rhythm. Lungs clear. Abdomen soft nontender nondistended. Neuro nonfocal cerebellar intact. NIH stroke scale 0. Will rule out electrolyte abnormalities, UTI. Unlikely pneumonia, PE. This is likely syncopal episode, will rule out dysrhythmias. Unlikely atypical presentation of ACS. Plan at this time labs. Differential Diagnosis Differential Diagnoses: The differential diagnosis associated with the presentation includes Will rule out electrolyte abnormalities, UTI. Unlikely pneumonia, PE. This is likely syncopal episode, will rule out dysrhythmias. Unlikely atypical presentation of ACS. Admission/Observation Consideration of admission/observation: Escalation of care including admission/observation considered likely Lab Data MDM Lab Attestation statement: I reviewed the patient's lab results. 04/19/23 18:17 04/19/23 18:16 Labs: Lab Results 04/19/23 04/19/23 Range/Units 18:17 18:17 WBC 8.6 (4.8-10.8) X10*3/uL RBC 2.22 L D (4.60-5.80) X10*6/uL Hgb 6.7 L* D (14.0-18.0) g/dl Hct 19.8 L* D (42.0-52.0) % MCV 89.2 (80.0-98.0) fL MCH 30.2 (27.0-33.0) pg MCHC 33.8 (31.0-36.0) g/dl RDW 14.6 (11.0-16.0) % Plt Count 123 L (160-400) X10*3/uL MPV 9.2 L (9.4-12.4) fL Immature Gran % (Auto) 0.5 H (0.0-0.4) % Neut % (Auto) 78.4 H (45-73) % Lymph % (Auto) 7.7 L (20-40) % [place] % (Auto) 10.3 (2-11) % Eos % (Auto) 2.8 (0-4) % Baso % (Auto) 0.3 (0-2) % Lymph # (Auto) 0.7 L (1.2-4.9) X10*3/uL [place] # (Auto) 0.9 (0.1-1.2) X10*3/uL Eos # (Auto) 0.2 (0.0-0.4) X10*3/uL Baso # (Auto) 0.0 (0.0-0.2) X10*3/uL Abs Immat Gran (auto) 0.04 H (0.00-0.03) X10*3/uL Absolute Neuts (auto) 6.7 (2.0-8.3) x10*3/uL Absolute Nucleated RBC 0.000 (0.0-0.012) X10*3/uL Nucleated RBC % (auto) 0.0 (0.0-0.2) /100WBC Lactic Acid 0.6 (0.5-2.0) mmol/L Independent Interpretation I performed an independent interpretation of an: EKG ( ventricular rate of 90, CO normal, QRS normal, QT/ QTC normal. No ST elevations or inversions concerning for acute ischemia.) and Plain X-Ray ([id number] XR/XR chest 1V IMPRESSION: No radiographic evidence of acute cardiopulmonary disease.) Radiology Impression Discussion of test interpretation with radiology: I have reviewed the radiologist's reading. Core Measures AMI core measures followed: Yes Measure exclusions: not indicated Critical Care Time Critical Care Time Critical Care Time: No Discharge Plan Discharge Clinical Impression: Syncope, Headache, CKD (chronic kidney disease), Normocytic anemia Patient Disposition: Still a Patient Prescriptions: No Action carvedilol 25 mg tablet 25 mg PO BID atorvastatin 20 mg tablet 20 mg PO BEDTIME ondansetron HCl 4 mg tablet 4 mg PO Q8H PRN (Reason: Nausea) sennosides-docusate sodium [Senna Plus] 8.6-50 mg tablet 2 tab PO BID acetaminophen 500 mg tablet 1,000 mg PO TID PRN (Reason: pain) alprazolam 0.5 mg tablet 0.5 mg PO BID PRN (Reason: anxiety) clonidine HCl 0.2 mg tablet 0.2 mg PO DAILY PRN (Reason: Blood Pressure) pantoprazole 40 mg tablet,delayed release (DR/EC) 40 mg PO DAILY@0630 nitroglycerin 0.4 mg tablet, sublingual 0.4 mg sublingual Q5M PRN (Reason: Chest Pain) calcium carbonate 500 mg calcium (1,250 mg) Tablet,Chewable 500 mg PO DAILY PRN (Reason: Acid Reflux) clonidine 0.3 mg/24 hr patch weekly 1 patch topical SA@0900 gabapentin 100 mg capsule 200 mg PO BID polyethylene glycol 3350 17 gram/dose powder 17 g PO DAILY PRN (Reason: Constipation) nifedipine 60 mg tablet extended release 120 mg PO DAILY losartan 100 mg tablet 100 mg PO DAILY sertraline 50 mg tablet 50 mg PO DAILY cinacalcet 90 mg Tablet 90 mg PO MOWEFR@1645 Rx Instructions: only on dialysis days lactulose 10 gram/15 mL solution 15 ml PO DAILY PRN (Reason: Constipation) sevelamer carbonate 800 mg tablet 2,400 mg PO TIDWMEAL hydrocortisone 0.5 % Cream 1 appl TOPICAL DAILY PRN (Reason: Rash) Rx Instructions: face calcitriol 0.5 mcg Capsule 0.5 mcg PO MOWEFR@1645 Rx Instructions: administer after dialysis on dialysis days ergocalciferol (vitamin D2) [Vitamin D2] 1,250 mcg (50,000 unit) Capsule 1,250 mcg PO FR ketoconazole 2 % Cream 1 appl TOPICAL DAILY PRN (Reason: Rash) Rx Instructions: face levetiracetam 500 mg tablet 1,000 mg PO BID hydralazine 50 mg Tablet 50 mg PO TID Qty: 90 0RF Protocol: Hold for SBP< HOLD for SBP < : 90 Renal Caps 1 mg capsule 1 cap PO DAILY
--- NOTE | 2023-04-19 17:33 | ECG_ITS ---
Test Reason : SYNCOPE Blood Pressure : / mmHG Vent. Rate : 090 BPM Atrial Rate : 090 BPM P-R Int : 184 ms QRS Dur : 100 ms QT Int : 340 ms P-R-T Axes : 060 043 061 degrees QTc Int : 415 ms Normal sinus rhythm Normal ECG When compared with ECG of 25-MAR-2023 18:41, No significant change was found Referred By: Gali Calderon Electronically Signed By:MAGALY OLMOS MD
--- NOTE | 2023-04-19 18:13 | PHA.MEDREC ---
Pharmacy Consult ? Medication Reconciliation Pharmacy has completed the medication reconciliation. Patient confirmed medications, patient could recognize the names. Brenda Mendez, [facility]
[2023-04-19 18:24] LABS: MANUAL DIFF FLAG NO
[2023-04-19 18:25] LABS: Basophils Percent Auto 0.3 % (0-2); Eosinophils Absolute Auto 0.2 X10*3/uL (0.0-0.4); Eosinophils Percent Auto 2.8 % (0-4); Imm Gran Abs Auto 0.04 X10*3/uL (0.00-0.03); Imm Gran Pct Auto 0.5 % (0.0-0.4); Lymphocytes Absolute Auto 0.7 X10*3/uL (1.2-4.9); Lymphocytes Percent Auto 7.7 % (20-40); Mean Corpuscular HGB Conc 33.8 g/dl (31.0-36.0); Mean Corpuscular Hemoglobin 30.2 pg (27.0-33.0); Mean Corpuscular Volume 89.2 fL (80.0-98.0); Mean Platelet Volume 9.2 fL (9.4-12.4); Monocytes Absolute Auto 0.9 X10*3/uL (0.1-1.2); Monocytes Percent Auto 10.3 % (2-11); Neutrophils Absolute Auto 6.7 x10*3/uL (2.0-8.3); Neutrophils Percent Auto 78.4 % (45-73); Platelet Count 123 X10*3/uL (160-400); Red Blood Count 2.22 X10*6/uL (4.60-5.80); Red Cell Distribution Width 14.6 % (11.0-16.0); White Blood Count 8.6 X10*3/uL (4.8-10.8)
[2023-04-19] MEDS: Morphine Sulfate 4 MG/ML CARTRIDGE IVPUSH (18:26)
[2023-04-19 18:27] LABS: Hematocrit 19.8 % (42.0-52.0)
[2023-04-19 18:28] LABS: Hemoglobin 6.7 g/dl (14.0-18.0)
[2023-04-19 18:37] LABS: Lactic Acid 0.6 mmol/L (0.5-2.0)
[2023-04-19 18:53] LABS: OBS Int Ctl Valid YES; OBS1 NEGATIVE (NEGATIVE)
[2023-04-19 18:54] LABS: Alanine Aminotransferase 11 U/L (0-40); Albumin Level 3.5 g/dL (3.5-5.0); Alkaline Phosphatase 48 U/L (39-117); Anion Gap 14 (12-20); Aspartate Amino Transferase 11 U/L (5-37); Bilirubin Total 0.5 mg/dL (0.0-1.0); Blood Urea Nitrogen 14 mg/dL (9-16); Carbon Dioxide 21 mmol/L (22-29); Chloride 106 mmol/L (96-108); Creatinine Clr Calc Pharmacy 25.2; Estimated Glomerular Filt Rate 12; Glucose Random 85 mg/dL (60-115); Potassium 3.5 mmol/L (3.3-5.1); Sodium 137 mmol/L (135-145); Total Protein 5.4 g/dL (6.5-8.0)
[2023-04-19 18:57] LABS: Troponin-I High Sensitivity 59.8 ng/L (<3.5-35.0)
[2023-04-19] MEDS: iohexoL 350 MG/ML 100 ML INFUS..BTL IV (19:07)
--- NOTE | 2023-04-19 21:36 | P.HPHOSP_ITS ---
Patient seen examined at bedside. I agree with STONE. patient with anemia likely secondary to chronic disease. Patient also had a syncope during dialysis. Likely multifactorial in the setting of anemia, dialysis,and hx of orthostatic hypotention with positive orthostatic vitals today pt receiving blood transfusion, IVF and will be admitted to telemetry for full H&P please see below History of Present Illness Date of Service: 04/19/23 Attending physician on admission: Elsy Engel Chief Complaint: Syncope Pt is a 27-year-old male with a PMH significant for?ESRD on hemodialysis M/W/F, ADHD, polysubstance use disorder, HTN, anemia of chronic disease, recurrent orthostatic hypotension, and anxiety who presents to the ED after having a syncopal episode at dialysis earlier today. Pt was laying down during dialysis when he began having a headache, then felt a little lightheaded, and was then observed by nursing staff to syncopize. Pt did not fall. No seizure-like activ ity or postictal state upon waking. Pt received 3/4 hours of dialysis before being sent to ED for further evaluation. Of note pt has a long bifurcated history of syncopal episodes. In June and July of last year he had multiple episodes of syncope associated with N/V. Eventually he was diagnosed and treated for orthostatic hypotension. Pt was then largely symptom free for many months until February and March of this year when he again experienced multiple syncopal episodes, this time sans N/V. He was admitted to the hospital here on 03/13/2023 through 03/16/2023 for syncope and had positive EEG and started on Keppra at that time. The following week pt was again admitted here to hospital for another syncopal episode from 03/22/2023 to 03/24/2023. Orthostatics were negative, Cardiology consulted and did not feel syncope was cardiogenic in nature, patient was found to be anemic and transfused 2 units of PRBCs. Patient was then admitted to [facility] for syncope and anemia on 03/29/2023 through 04/07/2023 which was initially thought to be a breakthrough seizure but later attributed to orthostatic hypotension. Currently, pt complains of fatigue and mild headache. Has had chronic lower leg pain for past 3-4 months that he reports feel like my bones are bruised. He also notes he has had 2 days of diarrhea, 3-4 episodes yesterday and 2-3 episodes today. Says this is not normal but occasionally happens. Denies abdominlla pain. No hematochezia, melena, hematemasis. No N/V. Denies SOB. No fever, chills. In the ED patient was afebrile but tachycardic up to 99, and hypertensive up to 140/106. Labs were significant for H&H of 6.7/19.8, platelets 123, creatinine of 5.67, initial troponin 59.8. Electrolytes WNL. Hepatic function WNL. Stool negative for occult blood. CXR showed no evidence of acute cardiopulmonary disease. 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 EKG demonstrated normal sinus rhythm with no ischemic changes. Pt was treated with morphine, IVF, and 1 unit of PRBCs. Pt will be admitted to the hospital for treatment and furth er evaluation of syncope and acute on chronic symptomatic anemia. Review of Systems Review of Systems: Syncopal episode Headache Lightheadedness Chronic lower leg pain bilaterally Diarrhea x2 days Denies melena, hematochezia, hematemesis Denies abdominal pain No chest pain/pressure, palpitations Denies SOB No fever, chills, N/V [facility] Medical History Anemia Back pain Bilateral lower extremity pain End stage chronic kidney disease ESRD on dialysis HTN (hypertension) Seizure disorder Social History Household Members: Family Household Members Other:: mom, step dad, sister and nephew Housing: House Do you presently have visiting nurse or other home services: No Alcohol intake: former Patient Tobacco Use Status: Never used Tobacco Smoked in Last 30 Days: No Substance Use Type: Marijuana Substance Use Frequency: Daily Advance Directives: No Advance Directives Information Provided: Yes service: No Meds Allergies Allergy/AdvReac Type Severity Reaction Status Date / Time ceftriaxone AdvReac Nausea and Verified 04/19/23 23:15 Vomiting lorazepam [From Ativan] AdvReac Shakiness Verified 03/20/23 23:33 metoclopramide [From Reglan] AdvReac Nausea Verified 03/20/23 23:33 Active Medications: Current Medications Pharmacy Consult (Consult Rx Perform Med Rec) 1 each MISCELLANE ONCE PRN PRN Reason: Consult order Home Medications Medication Instructions Recorded Confirmed Last Taken Type acetaminophen 500 mg tablet 1,000 mg PO TID PRN pain 03/13/23 04/19/23 Unknown History alprazolam 0.5 mg tablet 0.5 mg PO BID PRN anxiety 03/13/23 04/19/23 03/25/23 History atorvastatin 20 mg tablet 20 mg PO BEDTIME 03/13/23 04/19/23 03/24/23 History calcitriol 0.5 mcg capsule 0.5 mcg PO MOWEFR@1645 03/13/23 04/19/23 03/20/23 History calcium carbonate 500 mg calcium 500 mg PO DAILY PRN Acid Reflux 03/13/23 04/19/23 03/25/23 History (1,250 mg) chewable tablet carvedilol 25 mg tablet 25 mg PO BID 03/13/23 04/19/23 03/25/23 History cinacalcet 90 mg tablet 90 mg PO MOWEFR@1645 03/13/23 04/19/23 03/20/23 History clonidine 0.3 mg/24 hr weekly 1 patch topical SA@0900 03/13/23 04/19/23 03/16/23 History transdermal patch clonidine HCl 0.2 mg tablet 0.2 mg PO DAILY PRN Blood Pressure 03/13/23 04/19/23 03/25/23 History ergocalciferol (vitamin D2) 1,250 1,250 mcg PO FR 03/13/23 04/19/23 03/15/23 History mcg (50,000 unit) capsule (Vitamin D2) gabapentin 100 mg capsule 200 mg PO BID 03/13/23 04/19/23 03/25/23 History hydrocortisone 0.5 % topical cream 1 appl topical DAILY PRN Rash 03/13/23 04/19/23 Unknown History ketoconazole 2 % topical cream 1 appl topical DAILY PRN Rash 03/13/23 04/19/23 Unknown History lactulose 10 gram/15 mL oral 15 ml PO DAILY PRN Constipation 03/13/23 04/19/23 Unknown History solution losartan 100 mg tablet 100 mg PO DAILY 03/13/23 04/19/23 03/25/23 History nifedipine 60 mg tablet,extended 120 mg PO DAILY 03/13/23 04/19/23 03/25/23 History release nitroglycerin 0.4 mg sublingual 0.4 mg sublingual Q5M PRN Chest 03/13/23 04/19/23 Unknown History tablet Pain ondansetron HCl 4 mg tablet 4 mg PO Q8H PRN Nausea 03/13/23 04/19/23 Unknown History pantoprazole 40 mg tablet,delayed 40 mg PO DAILY@0630 03/13/23 04/19/23 03/25/23 History release polyethylene glycol 3350 17 17 g PO DAILY PRN Constipation 03/13/23 04/19/23 Unknown History gram/dose oral powder sennosides 8.6 mg-docusate sodium 2 tab PO BID 03/13/23 04/19/23 03/25/23 History 50 mg tablet (Senna Plus) sertraline 50 mg tablet 50 mg PO DAILY 03/13/23 04/19/23 03/25/23 History sevelamer carbonate 800 mg tablet 2,400 mg PO TIDWMEAL 03/13/23 04/19/23 03/25/23 History levetiracetam 500 mg tablet 1,000 mg PO BID 03/22/23 04/19/23 03/25/23 History vitamin B complex and vitamin C 1 cap PO DAILY 04/19/23 04/19/23 Unknown History no.20-folic acid 1 mg capsule (Renal Caps) Physical Exam Vital Signs and Narrative: Vital Signs: Last Vital Signs Temp 98.7 F 04/19/23 16:04 Pulse 86 04/19/23 16:04 Resp 15 04/19/23 16:04 BP 140/93 H 04/19/23 16:04 Pulse Ox 100 04/19/23 16:04 O2 Del Method Room Air 04/19/23 16:04 BMI result Body Mass Index 28.4 Constitutional: Alert, pt pale-looking, in no acute distress. Mental Status: Oriented to person, place and time. Eyes: Pupils are equal, round, and reactive to light. Ear, Nose, and Throat: Oropharynx clear, mucous membranes moist. Ears and nose without deformities. Trachea midline. Respiratory: Clear to auscultation bilaterally. No wheezing, rales, or rhonchi. Cardiovascular: S1, S2 regular. No murmurs, rubs, or gallops. Gastrointestinal: Abdomen soft, non-tender, non-distended. Normal bowel sounds. Neurologic: Cranial nerves II-XII are grossly intact bilaterally. No focal neurological deficits. Moves all extremities spontaneously. Skin: No rashes or lesions noted. Musculoskeletal: No cyanosis or clubbing. Diffuse tenderness to lower legs bilaterally. Extremities: No edema. Psychiatric: Normal mood and affect. Results Labs 04/19/23 18:17 04/19/23 18:16 Labs: Laboratory Results - last 24 hr 04/19/23 04/19/23 04/19/23 18:16 18:17 18:17 MCV 89.2 MCH 30.2 MCHC 33.8 RDW 14.6 Plt Count 123 L MPV 9.2 L Immature Gran % (Auto) 0.5 H Neut % (Auto) 78.4 H Lymph % (Auto) 7.7 L [place] % (Auto) 10.3 Eos % (Auto) 2.8 Baso % (Auto) 0.3 Lymph # (Auto) 0.7 L [place] # (Auto) 0.9 Eos # (Auto) 0.2 Baso # (Auto) 0.0 Abs Immat Gran (auto) 0.04 H Absolute Neuts (auto) 6.7 Absolute Nucleated RBC 0.000 Nucleated RBC % (auto) 0.0 Anion Gap 14 Estim Creat Clear Calc 25.2 Estimated GFR 12 Random Glucose 85 Lactic Acid 0.6 Calcium 9.0 Total Bilirubin 0.5 AST 11 ALT 11 Alkaline Phosphatase 48 Total Protein 5.4 L Albumin 3.5 Stool Occult Blood Blood Type Antibody Screen Crossmatch 04/19/23 04/19/23 18:39 20:11 MCV MCH MCHC RDW Plt Count MPV Immature Gran % (Auto) Neut % (Auto) Lymph % (Auto) [place] % (Auto) Eos % (Auto) Baso % (Auto) Lymph # (Auto) [place] # (Auto) Eos # (Auto) Baso # (Auto) Abs Immat Gran (auto) Absolute Neuts (auto) Absolute Nucleated RBC Nucleated RBC % (auto) Anion Gap Estim Creat Clear Calc Estimated GFR Random Glucose Lactic Acid Calcium Total Bilirubin AST ALT Alkaline Phosphatase Total Protein Albumin Stool Occult Blood NEGATIVE Blood Type O Positive Antibody Screen NEGATIVE Crossmatch See Detail Imaging Radiologist's Impressions: Impressions Chest X-Ray 04/19/23 17:45 IMPRESSION: No radiographic evidence of acute cardiopulmonary disease. Head CT 04/19/23 18:57 IMPRESSION: * No CT evidence of intracranial space-occupying mass, bleed or infarct. * Redemonstration of intraparenchymal and subarachnoid calcification in the inferior aspect of the right frontal lobe, this has not changed from prior CT exams, previously evaluated on MRI from 03/22/2023 and found to correlate most likely dystrophic calcification associated with DVAs. Abdomen/Pelvis CT 04/19/23 19:05 IMPRESSION: * There is circumferential thickening of the distal sigmoid colon and rectum, suspect underlying inflammation possible proctitis. * There is a small amount of free fluid in the dependent portion of the pelvis. This could be from dialysis, in the right clinical setting cannot rule out inflammation or peritendinitis. * There is a peritoneal catheter probably dialysis catheter the tip of which is in the pelvis. * Cholelithiasis. Assessment and Plan (1) Syncope: Status: Acute (2) Normocytic anemia: Status: Acute (3) CKD (chronic kidney disease): Status: Acute Plan Pt is a 27-year-old male with a PMH significant for?ESRD on hemodialysis M/W/F, ADHD, polysubstance use disorder, HTN, anemia of chronic disease, recurrent orthostatic hypotension, and anxiety who presents to the ED after having a syncopal episode at dialysis earlier today. Pt will be admitted to the hospital for treatment and further evaluation of syncope and acute on chronic symptomatic anemia. Acute on chronic anemia Pt's H&H 6.7/19.8, down from 9.6/28.1 on 03/25/2023 No sign of bleeding: stool negative for occult blood, pt denies hematemesis, hematochezia Most likely secondary to ESRD Pt recevied 2 units PRBCs in ED Pt has had 3 transfusions in the past 5 months Hematology consult Follow CBC Syncope Most likely multifactorial: anemia, orthostatic hypotension, pt receiving dialysis Less likely cardiogenic or neurologic in nature Pt receiving fluid, 2 units of PRBCs Repeat orthostatics in the morning Monitor on telemetry Proctitis CT of abd/pelvis with evidence of possible proctitis Pt with 2 days of 3-4 episodes of diarrhea Abdominal exam benign, pt afebrile, without abdominal pain Will hold off treating for now Monitor, reevaluate in the morning ESRD on hemodialysis M/W/F Pt received 3/4 hours of dialysis on Saturday before presenting to the ED Continue sevelamer carbonate Nephrology consult Elevated troponin Initial troponin 59.8 Patient asymptomatic, EKG negative for ischemic changes Likely type 2 in the setting of anemia Will check repeat troponin Seizure disorder Continue Keppra HTN Continue home meds HLD Continue statin GERD Continue PPI Chronic lower leg pain Continue gabapentin Full Code Attending:?Dr. Lieberman DVT Prophylaxis: Heparin Pt will require a hospitalization of at least two nights for treatment and further evaluation of syncope and acute on chronic symptomatic anemia. Time Spent With Patient Time: Total time managing care of this patient today ____ minutes. Quality Stroke Does the patient have a stroke diagnosis?: No VTE Prior VTE?: No VTE Risk Level:: Medical - moderate - high VTE Device Contraindication: Treatment Not Indicated VTE Drug Contraindication: N/A - Med Ordered
--- NOTE | 2023-04-19 22:03 | PC.NURSE ---
Returned blood due to verification issue. Sent tiger text to gas pumping station supervisor for next steps.
[2023-04-20] VITALS (13 sets, daily range): BP systolic 129–158; BP diastolic 79–109; PULSE 73–100; RESP 12–18; TEMP 35.8–38; O2SAT 95–98
[2023-04-20] MEDS: Sevelamer Carbonate Tablet 800 MG TABLET 2400 MG PO ×2 (00:51→12:32)
[2023-04-20] MEDS: levETIRAcetam 1,000 MG TABLET 1000 MG PO ×3 (00:53→20:06)
[2023-04-20] MEDS: Sennosides/Docusate Sodium TABLET 2 TAB PO ×2 (00:53→20:07)
[2023-04-20] MEDS: Losartan Potassium 50 MG TABLET 100 MG PO ×2 (00:53→09:38)
[2023-04-20] MEDS: Atorvastatin Calcium 20 MG TABLET PO ×2 (00:54→20:06)
[2023-04-20] MEDS: Gabapentin 100 MG CAPSULE 200 MG PO (00:54)
[2023-04-20] MEDS: hydrALAZINE HCl 50 MG TABLET PO ×4 (00:54→20:06)
[2023-04-20] MEDS: carvediloL 25 MG TABLET PO ×3 (00:55→20:06)
[2023-04-20] MEDS: Morphine Sulfate 4 MG/ML CARTRIDGE IVPUSH ×2 (00:55→06:05)
[2023-04-20] MEDS: Heparin Sodium,Porcine 5,000 UNIT/ML VIAL 5000 UNIT SUBCUT ×4 (00:56→22:17)
[2023-04-20 01:40] LABS: MANUAL DIFF FLAG NO
[2023-04-20 01:41] LABS: Basophils Percent Auto 0.4 % (0-2); Eosinophils Absolute Auto 0.2 X10*3/uL (0.0-0.4); Eosinophils Percent Auto 3.3 % (0-4); Hematocrit 21.3 % (42.0-52.0); Hemoglobin 7.2 g/dl (14.0-18.0); Imm Gran Abs Auto 0.03 X10*3/uL (0.00-0.03); Imm Gran Pct Auto 0.4 % (0.0-0.4); Lymphocytes Absolute Auto 1.1 X10*3/uL (1.2-4.9); Mean Corpuscular HGB Conc 33.8 g/dl (31.0-36.0); Mean Corpuscular Hemoglobin 30.1 pg (27.0-33.0); Mean Corpuscular Volume 89.1 fL (80.0-98.0); Mean Platelet Volume 9.4 fL (9.4-12.4); Monocytes Absolute Auto 0.6 X10*3/uL (0.1-1.2); Monocytes Percent Auto 9.4 % (2-11); Neutrophils Absolute Auto 4.7 x10*3/uL (2.0-8.3); Neutrophils Percent Auto 70.5 % (45-73); Platelet Count 123 X10*3/uL (160-400); Red Blood Count 2.39 X10*6/uL (4.60-5.80); Red Cell Distribution Width 14.8 % (11.0-16.0); White Blood Count 6.7 X10*3/uL (4.8-10.8)
[2023-04-20] MEDS: Ergocalciferol (Vitamin D2) 1,250 MCG CAPSULE 1250 MCG PO (01:51)
[2023-04-20] MEDS: 0.9 % Sodium Chloride Flush 3 ML SYRINGE IVFLUSH ×3 (01:54→15:23)
[2023-04-20 02:13] LABS: Troponin-I High Sensitivity 66.2 ng/L (<3.5-35.0)
--- NOTE | 2023-04-20 03:10 | PC.NURSE ---
Late entry: Patient alert and oriented on arrival. Arrived via EMS from dialysis with reports of ABDI, possible syncopal episode or focal seizure. Port accessed, labs drawn. Pt unable to urinate. Patient H&H critically low administered 1 unit of PRBC. First unit ordered had a verification issue and was returned back to Blood bank. Requested provider to discontinue first order and reorder for transfusion. PT tolerated transfusion.
--- NOTE | 2023-04-20 03:45 | PC.NURSE ---
Report given to Carmen TRINIDDA on [facility]. Pt being transported by automotive technology instructor.
--- NOTE | 2023-04-20 03:56 | PC.NURSE ---
This RN sent message to requesting cancellation of first unit of blood.l Will need to reorder due to the frst one having a verification issue. Awaiting new orders, naval architect specialist Carmen aware and will continue to follow.
[2023-04-20] MEDS: ondansetron HCL 4 MG/2 ML VIAL IVPUSH (08:24)
[2023-04-20] MEDS: cloNIDine 0.3 MG PATCH.TDWK TRANSDERMA (09:34)
[2023-04-20] MEDS: NIFEdipine ER 60 MG TAB.ER.24 120 MG PO (09:37)
[2023-04-20] MEDS: Sertraline HCL 50 MG TABLET PO (09:38)
--- NOTE | 2023-04-20 10:39 | MHC.CM.PN ---
Interview conducted w/Pt. IMM 04/20/23. Pt lives w/mother, step-father, sister and sister's child. New PCP is Dr. Pillo Trejo and his first appt. w/Dr. Lorenzo is 04/29/23. OP HD is at [facility] in [place] on M, W, F 11:30am to 3:30am. Mother drives him to all of his appts. No previous services. Patient Accounts Coordinator is Dr. Hicks. D/C plan is return home w/mother via mother. CM to follow.
[2023-04-20 13:20] LABS: Hematocrit 25.8 % (42.0-52.0); Hemoglobin 8.5 g/dl (14.0-18.0); Mean Corpuscular HGB Conc 32.9 g/dl (31.0-36.0); Mean Corpuscular Hemoglobin 29.4 pg (27.0-33.0); Mean Corpuscular Volume 89.3 fL (80.0-98.0); Mean Platelet Volume 9.5 fL (9.4-12.4); Platelet Count 126 X10*3/uL (160-400); Red Blood Count 2.89 X10*6/uL (4.60-5.80); Red Cell Distribution Width 15.7 % (11.0-16.0)
[2023-04-20 13:43] LABS: Anion Gap 16 (12-20); Blood Urea Nitrogen 22 mg/dL (9-16); Calcium 9.5 mg/dL (8.4-10.2); Carbon Dioxide 20 mmol/L (22-29); Chloride 105 mmol/L (96-108); Estimated Glomerular Filt Rate 8; Glucose Random 91 mg/dL (60-115); Magnesium 1.9 mg/dL (1.6-2.6); Potassium 4.4 mmol/L (3.3-5.1); Sodium 137 mmol/L (135-145)
--- NOTE | 2023-04-20 15:34 | P.PNIM_ITS ---
Subjective Subjective Date of Service: 04/20/23 Interval History: No further syncopal episodes since admission. Continues to complain of leg pain; persistently asking for Dilaudid Review of Systems Denies chest pain Denies shortness of breath Denies nausea vomiting diarrhea Denies fever chills Physical Exam Vital Signs: Vital Signs: Last Vital Signs Temp 100.4 F 04/20/23 11:35 Pulse 73 04/20/23 11:35 Resp 18 04/20/23 11:35 BP 157/99 H 04/20/23 11:35 Pulse Ox 95 04/20/23 11:10 O2 Del Method Room Air 04/20/23 11:10 BMI result Body Mass Index 28.4 Const: Other: Awake alert no acute distress Resp: Other: Clear to auscultation bilaterally no rales rhonchi or wheezes Cardio: Other: No S4; positive S1-S2; no S3 murmurs rubs or gallops GI: Other: Soft nontender nondistended normoactive bowel sounds Extrem: Other: No edema bilaterally Objective Data Active Medications Acetaminophen (Acetaminophen 325 Mg Tablet) 975 mg PO TID PRN PRN Reason: Pain, Mild (Pain Scale 1-3) Alprazolam (Alprazolam 0.5 Mg Tablet) 0.5 mg PO BID PRN PRN Reason: anxiety Atorvastatin Calcium (Atorvastatin Calcium 20 Mg Tablet) 20 mg PO BEDTIME [facility] Last Admin: 04/20/23 00:54 Dose: 20 mg Documented By: EB Calcitriol (Calcitriol 0.25 Mcg Capsule) 0.5 mcg PO MOWEFR@1645 [facility] Calcium Carbonate (Calcium Carbonate 500 Mg Tablet) 500 mg PO DAILY PRN PRN Reason: Acid Reflux Carvedilol (Carvedilol 25 Mg Tablet) 25 mg PO BID [facility]; Protocol Last Admin: 04/20/23 09:38 Dose: 25 mg Documented By: KAYLA Cinacalcet (Cinacalcet Hcl 30 Mg Tablet) 90 mg PO MOWEFR@1645 [facility] Clonidine (Clonidine 0.3 Mg Patch.Tdwk) 0.3 mg TRANSDERMA SA@0900 [facility]; Protocol Last Admin: 04/20/23 09:34 Dose: 0.3 mg Documented By: KAYLA Clonidine HCl (Clonidine Hcl 0.2 Mg Tablet) 0.2 mg PO DAILY PRN; Protocol PRN Reason: Blood Pressure Docusate Sodium (Docusate Sodium 100 Mg Capsule) 100 mg PO DAILY PRN PRN Reason: Constipation Ergocalciferol (Ergocalciferol (Vitamin D2) 1,250 Mcg Capsule) 1,250 mcg PO FR [facility] Last Admin: 04/20/23 01:51 Dose: 1,250 mcg Documented By: MONTEIR Gabapentin (Gabapentin 100 Mg Capsule) 200 mg PO BID [facility] Last Admin: 04/20/23 10:03 Dose: Not Given Documented By: KAYLA Non-Admin Reason: Patient Refused Heparin Sodium (Porcine) (Heparin Sodium,Porcine 5,000 Unit/Ml Vial) 5,000 unit SUBCUT Q8H [facility] Last Admin: 04/20/23 15:25 Dose: 5,000 unit Documented By: SONIA Hydralazine HCl (Hydralazine Hcl 50 Mg Tablet) 50 mg PO TID [facility]; Protocol Last Admin: 04/20/23 15:24 Dose: 50 mg Documented By: SONIA Lactulose (Lactulose 20 Gm/30 Ml Solution) 10 gm PO DAILY PRN PRN Reason: Constipation Levetiracetam (Levetiracetam 1,000 Mg Tablet) 1,000 mg PO BID [facility] Last Admin: 04/20/23 09:37 Dose: 1,000 mg Documented By: KAYLA Losartan Potassium (Losartan Potassium 50 Mg Tablet) 100 mg PO DAILY [facility]; Protocol Last Admin: 04/20/23 09:38 Dose: 100 mg Documented By: KAYLA Multivitamins/Vitamin C (Multivitamin Tablet) 1 tab PO DAILY [facility] Last Admin: 04/20/23 10:03 Dose: Not Given Documented By: KAYLA Non-Admin Reason: Patient Refused Nifedipine (Nifedipine Er 60 Mg Tab.Er.24) 120 mg PO DAILY [facility] Last Admin: 04/20/23 09:37 Dose: 120 mg Documented By: KAYLA Nitroglycerin (Nitroglycerin 0.4 Mg Tab.Subl) 0.4 mg SUBLINGUAL Q5M PRN PRN Reason: Chest Pain Omeprazole (Omeprazole 20 Mg Capsule.Dr) 20 mg PO DAILY [facility] Last Admin: 04/20/23 10:03 Dose: Not Given Documented By: KAYLA Non-Admin Reason: Patient Refused Ondansetron HCl (Ondansetron Hcl 4 Mg/2 Ml Vial) 4 mg IVPUSH Q8H PRN PRN Reason: Nausea and Vomiting Last Admin: 04/20/23 08:24 Dose: 4 mg Documented By: KAYLA Pharmacy Consult (Consult Rx Perform Med Rec) 1 each MISCELLANE ONCE PRN PRN Reason: Consult order Polyethylene Glycol (Polyethylene Glycol 3350 17 Gm Powd.Pack) 17 gm PO DAILY PRN PRN Reason: Constipation Senna/Docusate Sodium (Sennosides/Docusate Sodium Tablet) 2 tab PO BID [facility] Last Admin: 04/20/23 10:03 Dose: Not Given Documented By: KAYLA Non-Admin Reason: Patient Refused Sertraline HCl (Sertraline Hcl 50 Mg Tablet) 50 mg PO DAILY [facility] Last Admin: 04/20/23 09:38 Dose: 50 mg Documented By: KAYLA Sevelamer Carbonate (Sevelamer Carbonate Tablet 800 Mg Tablet) 2,400 mg PO TIDWM [facility] Last Admin: 04/20/23 12:32 Dose: 2,400 mg Documented By: KAYLA Sodium Chloride (0.9 % Sodium Chloride Flush 3 Ml Syringe) 3 ml IVFLUSH QSHIFT [facility] Last Admin: 04/20/23 15:23 Dose: 3 ml Documented By: SONIA Labs 04/20/23 13:06 04/20/23 13:06 Labs: Laboratory Results - last 24 hr 04/19/23 04/19/23 04/19/23 18:16 18:17 18:17 MCV 89.2 MCH 30.2 MCHC 33.8 RDW 14.6 Plt Count 123 L MPV 9.2 L Immature Gran % (Auto) 0.5 H Neut % (Auto) 78.4 H Lymph % (Auto) 7.7 L [place] % (Auto) 10.3 Eos % (Auto) 2.8 Baso % (Auto) 0.3 Lymph # (Auto) 0.7 L [place] # (Auto) 0.9 Eos # (Auto) 0.2 Baso # (Auto) 0.0 Abs Immat Gran (auto) 0.04 H Absolute Neuts (auto) 6.7 Absolute Nucleated RBC 0.000 Nucleated RBC % (auto) 0.0 Anion Gap 14 Estim Creat Clear Calc 25.2 Estimated GFR 12 Random Glucose 85 Lactic Acid 0.6 Calcium 9.0 Magnesium Total Bilirubin 0.5 AST 11 ALT 11 Alkaline Phosphatase 48 Total Protein 5.4 L Albumin 3.5 Stool Occult Blood Blood Type Antibody Screen Crossmatch 04/19/23 04/19/23 04/20/23 18:39 20:11 01:35 MCV 89.1 MCH 30.1 MCHC 33.8 RDW 14.8 Plt Count 123 L MPV 9.4 Immature Gran % (Auto) 0.4 Neut % (Auto) 70.5 Lymph % (Auto) 16.0 L [place] % (Auto) 9.4 Eos % (Auto) 3.3 Baso % (Auto) 0.4 Lymph # (Auto) 1.1 L [place] # (Auto) 0.6 Eos # (Auto) 0.2 Baso # (Auto) 0.0 Abs Immat Gran (auto) 0.03 Absolute Neuts (auto) 4.7 Absolute Nucleated RBC 0.000 Nucleated RBC % (auto) 0.0 Anion Gap Estim Creat Clear Calc Estimated GFR Random Glucose Lactic Acid Calcium Magnesium Total Bilirubin AST ALT Alkaline Phosphatase Total Protein Albumin Stool Occult Blood NEGATIVE Blood Type O Positive Antibody Screen NEGATIVE Crossmatch See Detail 04/20/23 04/20/23 13:06 13:06 MCV 89.3 MCH 29.4 MCHC 32.9 RDW 15.7 Plt Count 126 L MPV 9.5 Immature Gran % (Auto) Neut % (Auto) Lymph % (Auto) [place] % (Auto) Eos % (Auto) Baso % (Auto) Lymph # (Auto) [place] # (Auto) Eos # (Auto) Baso # (Auto) Abs Immat Gran (auto) Absolute Neuts (auto) Absolute Nucleated RBC 0.000 Nucleated RBC % (auto) 0.0 Anion Gap 16 Estim Creat Clear Calc 18.0 Estimated GFR 8 Random Glucose 91 Lactic Acid Calcium 9.5 Magnesium 1.9 Total Bilirubin AST ALT Alkaline Phosphatase Total Protein Albumin Stool Occult Blood Blood Type Antibody Screen Crossmatch Assessment and Plan (1) Syncope: Status: Acute (2) CKD (chronic kidney disease): Status: Acute (3) Normocytic anemia: Status: Acute (4) Bilateral lower extremity pain: Status: Acute Plan Pt is a 27-year-old male with a PMH significant for?ESRD on hemodialysis M/W/F, ADHD, polysubstance use disorder, HTN, anemia of chronic disease, recurrent orthostatic hypotension, and anxiety who presents to the ED after having a syncopal episode at dialysis earlier today. Pt will be admitted to the hospital for treatment and further evaluation of syncope and acute on chronic symptomatic anemia. 1.Acute on chronic anemia -good response to transfusion -will discuss Procrit with Renal after seen 2.Syncope -no further episodes. -no seizure activity noted 3.ESRD - sevelamer carbonate -Nephrology consult 4.Bilateral lower extremity pain -past admission patient was known to save oxycodone under bed sheet. Explained to patient that given this behavior is inappropriate for him to be medicated; continues to ask for Dilaudid and Benadryl -will utilize Tylenol for pain as he exhibits drug-seeking behavior -continue gabapentin 5.HTN -Acceptable control on current therapies -adjust as indicated Full Code Heparin Patient will require ongoing hospitalization for dialysis Time Spent With Patient Time: Total time managing care of this patient today ____ minutes. Quality Stroke Does the patient have a stroke diagnosis?: No VTE Prior VTE?: No VTE Risk Level:: Medical - moderate - high VTE Device Contraindication: Treatment Not Indicated VTE Drug Contraindication: N/A - Med Ordered
[2023-04-20] MEDS: ALPRAZolam 0.5 MG TABLET PO (19:13)
--- NOTE | 2023-04-20 20:08 | P.CNHO_ITS ---
Subjective - Subjective Chief complaint: Consult for: Anemia. Patient: new to practice Consult date: 04/20/23 Requesting Physician: Angelita. Primary Care Provider: travon Trejo Family Provider: Travon Trejo Medical Summary: DIAGNOSIS ANEMIA. HPI - Consult Narrative Reason for consult: Consult for: Anemia. Narrative: Gary Burns is a 27 year old gentleman referred by Dr. Lundy, on account of Anemia. Pt.was undergoing dialysis when he developed headache, felt dizzy then went on to have a syncopal episode. Was noted to be significantly anemic. Hgb 6.7, HCT 19.8. Was given two units of blood. He was on peritoneal dialysis for about 5 years. He was switched to hemodialysis a couple of months ago. HPI: 27-year-old male presented to the ED after having a syncopal episode at dialysis Pt was laying down during dialysis when he began having a headache, then felt a little lightheaded, and was then observed by nursing staff to syncopize. Pt did not fall. No seizure-like activity or postictal state upon waking. Pt received 3/4 hours of dialysis before being sent to ED for further evaluation. Of note pt has a long bifurcated history of syncopal episodes. In June and July of last year he had multiple episodes of syncope associated with N/V. Eventually he was diagnosed and treated for orthostatic hypotension. Pt was then largely symptom free for many months until February and March of this year when he again experienced multiple syncopal episodes, this time with N/V. He was admitted to the hospital here on 03/13/2023 through 03/16/2023 for syncope and had positive EEG and started on Keppra at that time. The following week pt was again admitted here to hospital for another syncopal episode from 03/22/2023 to 03/24/2023. Orthostatics were negative, Cardiology consulted and did not feel syncope was cardiogenic in nature, patient was found to be anemic and transfused 2 units of PRBCs. Patient was then admitted to [facility] for syncope and anemia on 03/29/2023 through 04/07/2023 which was initially thought to be a breakthrough seizure but later attributed to orthostatic hypotension. Pt complains of fatigue and mild headache. Has had chronic lower leg pain for past 3-4 months that he reports feel like my bones are bruised. He also notes he has had 2 days of diarrhea, 3-4 episodes per day. Says this is not normal but occasionally happens. Denies abdominlla pain. No hematochezia, melena, hematemasis. No N/V. Denies SOB. No fever, chills. In the ED patient was afebrile but tachycardic up to 99, and hypertensive up to 140/106. Labs were significant for H&H of 6.7/19.8, platelets 123, creatinine of 5.67, initial troponin 59.8. Electrolytes WNL. Hepatic function WNL. Stool negative for occult blood. CXR showed no evidence of acute cardiopulmonary disease. 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 EKG demonstrated normal sinus rhythm with no ischemic changes. Pt was treated with morphine, IVF, and 1 unit of PRBCs. Pt will be admitted to the hospital for treatment and further evaluation of syncope and acute on chronic symptomatic anemia. Review of Systems Review of Systems: Syncopal episode Headache Lightheadedness Chronic lower leg pain bilaterally Diarrhea x 2 days Denies melena, hematochezia, hematemesis Denies abdominal pain No chest pain/pressure, palpitations Denies SOB No fever, chills, N/V PMFSH: Medical History: ESRD on hemodialysis M/W/F, recurrent orthostatic hypotension. ADHD, Polysubstance use disorder, HTN, Anemia of chronic disease, , Back pain Bilateral lower extremity pain End stage chronic kidney disease ESRD on dialysis Seizure disorder and anxiety. Family history: An aunt had cancer. Maternal uncles times to have kidney disease. No hematological problems in the family. 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 Currently unemployed. He is not . He has no children. He smoked for 10 years. A pack a day. Quit in 2019. He now smokes pot to help him sleep. He denies alcohol. Household Members: Family Household Members Other:: mom, step dad, sister and nephew Housing: House Do you presently have visiting nurse or other home services: No Alcohol intake: former Review of Systems - Constitutional Reports system reviewed and no additional complaints, except as documented, Reports anorexia, Reports fatigue, Reports headache(s), Reports lack of energy, Reports malaise, Reports weakness, Reports weight loss, Denies fever(s) - Eyes Reports system reviewed and no additional complaints, except as documented, Denies blurry vision - ENT Reports system reviewed and no additional complaints, except as documented - Cardiovascular Reports system reviewed and no additional complaints, except as documented, Denies chest pain at rest, Denies fast heart rate - Respiratory Reports no additional respiratory complaints, Denies cough - Gastrointestinal Reports system reviewed and no additional complaints, except as documented, R eports abdominal pain, Reports diarrhea, Reports nausea, Denies vomiting - Genitourinary Genitourinary: Reports no additional male genitourinary complaints, Denies blood in urine - Musculoskeletal Reports system reviewed and no additional complaints, except as documented, Reports abnormal walking - Integumentary/Breasts Skin/Breast: Reports no additional skin complaints, Denies bleeding lesions - Neurologic Reports system reviewed and no additional complaints, except as documented - Psychiatric Reports system reviewed and no additional complaints, except as documented, Reports anxiety - Endocrine Reports no additional endocrine complaints, Denies cold intolerance - Hematologic/Lymphatic Reports system reviewed and no additional complaints, except as documented, Reports easy bleeding - Allergic/Immunologic Reports system reviewed and no additional complaints, except as documented, Reports GI upset with certain foods Oncology Screenings - ECOG Performance Status ECOG Performance Status: 0 PMFSH Medical History: Medical History (Last Updated 04/21/23 @ 13:05 by Lemuel Goldstein DO) Anemia Back pain Bilateral lower extremity pain End stage chronic kidney disease ESRD on dialysis HTN (hypertension) Seizure disorder Syncope Functional capacity: independent ambulation Patient : No Social History: Social History (Last Reviewed 04/20/23 @ 01:03 by JOS Gerber) Living Situation History: Household Members: Family Household Members Other:: mom, step dad, sister and nephew Housing: House Do you presently have visiting nurse or other home services: No Tobacco History: Patient Tobacco Use Status: Never used Tobacco Substance Use History: Substance Use Type: Marijuana Occupation Assessmet: service: No Home Medications and Allergies Current Medications: Current Medications Acetaminophen (Acetaminophen 325 Mg Tablet) 975 mg PO TID PRN PRN Reason: Pain, Mild (Pain Scale 1-3) Alprazolam (Alprazolam 0.5 Mg Tablet) 0.5 mg PO BID PRN PRN Reason: anxiety Last Admin: 04/20/23 19:13 Dose: 0.5 mg Atorvastatin Calcium (Atorvastatin Calcium 20 Mg Tablet) 20 mg PO BEDTIME COUNTS INCLUDE 234 BEDS AT THE [facility] Last Admin: 04/20/23 20:06 Dose: 20 mg Calcitriol (Calcitriol 0.25 Mcg Capsule) 0.5 mcg PO MOWEFR@1645 COUNTS INCLUDE 234 BEDS AT THE [facility] Calcium Carbonate (Calcium Carbonate 500 Mg Tablet) 500 mg PO DAILY PRN PRN Reason: Acid Reflux Carvedilol (Carvedilol 25 Mg Tablet) 25 mg PO BID COUNTS INCLUDE 234 BEDS AT THE [facility]; Protocol Last Admin: 04/20/23 20:06 Dose: 25 mg Cinacalcet (Cinacalcet Hcl 30 Mg Tablet) 90 mg PO MOWEFR@1645 COUNTS INCLUDE 234 BEDS AT THE [facility] Clonidine (Clonidine 0.3 Mg Patch.Tdwk) 0.3 mg TRANSDERMA SA@0900 COUNTS INCLUDE 234 BEDS AT THE [facility]; Protocol Last Admin: 04/20/23 09:34 Dose: 0.3 mg Clonidine HCl (Clonidine Hcl 0.2 Mg Tablet) 0.2 mg PO DAILY PRN; Protocol PRN Reason: Blood Pressure Docusate Sodium (Docusate Sodium 100 Mg Capsule) 100 mg PO DAILY PRN PRN Reason: Constipation Ergocalciferol (Ergocalciferol (Vitamin D2) 1,250 Mcg Capsule) 1,250 mcg PO FR COUNTS INCLUDE 234 BEDS AT THE [facility] Last Admin: 04/20/23 01:51 Dose: 1,250 mcg Gabapentin (Gabapentin 100 Mg Capsule) 200 mg PO BID COUNTS INCLUDE 234 BEDS AT THE [facility] Last Admin: 04/20/23 10:03 Dose: Not Given Heparin Sodium (Porcine) (Heparin Sodium,Porcine 5,000 Unit/Ml Vial) 5,000 unit SUBCUT Q8H COUNTS INCLUDE 234 BEDS AT THE [facility] Last Admin: 04/20/23 15:25 Dose: 5,000 unit Hydralazine HCl (Hydralazine Hcl 50 Mg Tablet) 50 mg PO TID COUNTS INCLUDE 234 BEDS AT THE [facility]; Protocol Last Admin: 04/20/23 20:06 Dose: 50 mg Lactulose (Lactulose 20 Gm/30 Ml Solution) 10 gm PO DAILY PRN PRN Reason: Constipation Levetiracetam (Levetiracetam 1,000 Mg Tablet) 1,000 mg PO BID COUNTS INCLUDE 234 BEDS AT THE [facility] Last Admin: 04/20/23 20:06 Dose: 1,000 mg Losartan Potassium (Losartan Potassium 50 Mg Tablet) 100 mg PO DAILY COUNTS INCLUDE 234 BEDS AT THE [facility]; Protocol Last Admin: 04/20/23 09:38 Dose: 100 mg Multivitamins/Vitamin C (Multivitamin Tablet) 1 tab PO DAILY COUNTS INCLUDE 234 BEDS AT THE [facility] Last Admin: 04/20/23 10:03 Dose: Not Given Nifedipine (Nifedipine Er 60 Mg Tab.Er.24) 120 mg PO DAILY COUNTS INCLUDE 234 BEDS AT THE [facility] Last Admin: 04/20/23 09:37 Dose: 120 mg Nitroglycerin (Nitroglycerin 0.4 Mg Tab.Subl) 0.4 mg SUBLINGUAL Q5M PRN PRN Reason: Chest Pain Omeprazole (Omeprazole 20 Mg Capsule.Dr) 20 mg PO DAILY COUNTS INCLUDE 234 BEDS AT THE [facility] Last Admin: 04/20/23 10:03 Dose: Not Given Ondansetron HCl (Ondansetron Hcl 4 Mg/2 Ml Vial) 4 mg IVPUSH Q8H PRN PRN Reason: Nausea and Vomiting Last Admin: 04/20/23 08:24 Dose: 4 mg Pharmacy Consult (Consult Rx Perform Med Rec) 1 each MISCELLANE ONCE PRN PRN Reason: Consult order Polyethylene Glycol (Polyethylene Glycol 3350 17 Gm Powd.Pack) 17 gm PO DAILY PRN PRN Reason: Constipation Senna/Docusate Sodium (Sennosides/Docusate Sodium Tablet) 2 tab PO BID COUNTS INCLUDE 234 BEDS AT THE [facility] Last Admin: 04/20/23 20:07 Dose: 2 tab Sertraline HCl (Sertraline Hcl 50 Mg Tablet) 50 mg PO DAILY COUNTS INCLUDE 234 BEDS AT THE [facility] Last Admin: 04/20/23 09:38 Dose: 50 mg Sevelamer Carbonate (Sevelamer Carbonate Tablet 800 Mg Tablet) 2,400 mg PO TIDWM COUNTS INCLUDE 234 BEDS AT THE [facility] Last Admin: 04/20/23 17:53 Dose: Not Given Sodium Chloride (0.9 % Sodium Chloride Flush 3 Ml Syringe) 3 ml IVFLUSH QSHIFT COUNTS INCLUDE 234 BEDS AT THE [facility] Last Admin: 04/20/23 15:23 Dose: 3 ml Home Medications Medication Instructions Recorded Confirmed Type acetaminophen 500 mg tablet 1,000 mg PO TID PRN pain 03/13/23 04/19/23 History alprazolam 0.5 mg tablet 0.5 mg PO BID PRN anxiety 03/13/23 04/19/23 History atorvastatin 20 mg tablet 20 mg PO BEDTIME 03/13/23 04/19/23 History calcitriol 0.5 mcg capsule 0.5 mcg PO MOWEFR@1645 03/13/23 04/19/23 History calcium carbonate 500 mg calcium 500 mg PO DAILY PRN Acid Reflux 03/13/23 04/19/23 History (1,250 mg) chewable tablet carvedilol 25 mg tablet 25 mg PO BID 03/13/23 04/19/23 History cinacalcet 90 mg tablet 90 mg PO MOWEFR@1645 03/13/23 04/19/23 History clonidine 0.3 mg/24 hr weekly 1 patch topical SA@0900 03/13/23 04/19/23 History transdermal patch clonidine HCl 0.2 mg tablet 0.2 mg PO DAILY PRN Blood Pressure 03/13/23 04/19/23 History ergocalciferol (vitamin D2) 1,250 1,250 mcg PO FR 03/13/23 04/19/23 History mcg (50,000 unit) capsule (Vitamin D2) gabapentin 100 mg capsule 200 mg PO BID 03/13/23 04/19/23 History hydrocortisone 0.5 % topical cream 1 appl topical DAILY PRN Rash 03/13/23 04/19/23 History ketoconazole 2 % topical cream 1 appl topical DAILY PRN Rash 03/13/23 04/19/23 History lactulose 10 gram/15 mL oral 15 ml PO DAILY PRN Constipation 03/13/23 04/19/23 History solution losartan 100 mg tablet 100 mg PO DAILY 03/13/23 04/19/23 History nifedipine 60 mg tablet,extended 120 mg PO DAILY 03/13/23 04/19/23 History release nitroglycerin 0.4 mg sublingual 0.4 mg sublingual Q5M PRN Chest 03/13/23 04/19/23 History tablet Pain ondansetron HCl 4 mg tablet 4 mg PO Q8H PRN Nausea 03/13/23 04/19/23 History pantoprazole 40 mg tablet,delayed 40 mg PO DAILY@0630 03/13/23 04/19/23 History release polyethylene glycol 3350 17 17 g PO DAILY PRN Constipation 03/13/23 04/19/23 History gram/dose oral powder sennosides 8.6 mg-docusate sodium 2 tab PO BID 03/13/23 04/19/23 History 50 mg tablet (Senna Plus) sertraline 50 mg tablet 50 mg PO DAILY 03/13/23 04/19/23 History sevelamer carbonate 800 mg tablet 2,400 mg PO TIDWMEAL 03/13/23 04/19/23 History levetiracetam 500 mg tablet 1,000 mg PO BID 03/22/23 04/19/23 History vitamin B complex and vitamin C 1 cap PO DAILY 04/19/23 04/19/23 History no.20-folic acid 1 mg capsule (Renal Caps) Allergies Allergy/AdvReac Type Severity Reaction Status Date / Time ceftriaxone AdvReac Nausea and Verified 04/19/23 23:15 Vomiting lorazepam [From Ativan] AdvReac Shakiness Verified 03/20/23 23:33 metoclopramide [From Reglan] AdvReac Nausea Verified 03/20/23 23:33 Physical Exam Vital signs: Vital Signs Temp 98.5 F 04/20/23 19:22 Pulse 84 04/20/23 19:22 Resp 16 04/20/23 19:22 BP 135/79 04/20/23 19:22 Pulse Ox 96 04/20/23 19:22 O2 Del Method Room Air 04/20/23 19:22 Intake & Output 04/20/23 04/20/23 04/21/23 06:59 18:59 06:59 Intake Total 492 / 492 830 / 830 Output Total 0 / 0 Balance 492 / 492 830 / 830 Urine Output (Average ml/kg/hr) 0.00 Intake: Intake, Oral Amount 480 / 480 Intake (Blood Product) Amount 292 / 292 350 / 350 Red Blood Cells (E0336) Unit 0 / 0 350 / 350 [id number] Red Blood Cells Aph (E0686) 292 / 292 Unit [id number] Intake, IV Amount 200 / 200 0.9 % Sodium Chloride 100 ml @ 200 / 200 100 mls/hr IV ONCE ONE Rx#: [id number] Output: Output, Urine Amount 0 / 0 Other: Breakfast % Eaten 0% Lunch % Eaten 50% Number of Unmeasured Voids 2 Weight 103 kg - Constitutional Present: moderate distress - Routine HEENT Exam Head: Present: normal inspection Eye: Present: normal appearance ENT: Present: mucous membranes moist - Routine Neck Exam Present: supple - Routine Respiratory Exam Present: CTAB - Routine Cardiovascular Exam Cardiovascular: Present: RRR, S1, S2 - Routine Abdominal Exam Present: soft, nontender - Routine Extremities Exam Present: nontender - Routine Skin Exam Present: intact - Routine Neurological Exam Present: alert, oriented X3 - Detailed Neurological Exam: Coma Scale Eye Opening: Spontaneous (4) Hem/Onc Consult Result - Labs CBC & Chem 7: 04/20/23 13:06 04/20/23 13:06 Labs: Short CBC 04/20/23 04/20/23 Range/Units 01:35 13:06 WBC 6.7 6.0 (4.8-10.8) X10*3/uL Hgb 7.2 L 8.5 L (14.0-18.0) g/dl Hct 21.3 L 25.8 L D (42.0-52.0) % Plt Count 123 L 126 L (160-400) X10*3/uL BMP 04/20/23 13:06 Sodium 137 Potassium 4.4 D Chloride 105 Carbon Dioxide 20 L BUN 22 H Creatinine 7.91 H* Calcium 9.5 Assessment and Plan Patient Active problem list reviewed?: Yes (1) Normocytic anemia Status: Acute Assessment and plan: This is a pleasant 27 year old gentelman with ESRD on dialysis, presented with syncopal episode, resulting from anemia. CT HEAD FROM 04/19: * No CT evidence of intracranial space-occupying mass, bleed or infarct. * Redemonstration of intraparenchymal and subarachnoid calcification in the inferior aspect of the right frontal lobe, this has not changed from prior CT exams, previously evaluated on MRI from 03/22/2023 and found to correlate most likely dystrophic calcification associated with DVAs. DIFFERENTIAL DIAGNOSIS: 1. IRON DEFICIENCY ANEMIA: This is a possibility. His iron studies: (these were done on pre transfusion labs.) concern is GI loss. Less likely GI malabsorption from celiac disease. 2. ANEMIA OF CHRONIC DISEASE: This is most likely. He has this on the basis of CKD. 3. B12/FOLATE DEFICIENCY: Can coexist. 4. HEMOLYTIC ANEMIA: Is in the differential. 5. MYELO INFILTRATIVE DISORDER: MDS versus lymphoma versus multiple myeloma: Is a possibility in view of kidney disease and his comorbidities. PLAN: I will proceed with further workup. Check iron studies: . Check EPO level. Check B12 and folate levels. LDH: 127. SIEP. Will plan further management based upon the above results. Thank you for the consult, Will follow along with you, Cc: Dr. Goldstein. Addendum: 04/21: Patient is going home today. He has an appointment with his primary on 04/29. He will then be referred for further evaluation to GI. I will follow him up on the outpatient basis. - Time Spent With Patient Time Spent with Patient (in minutes): 30
[2023-04-21] MEDS: 0.9 % Sodium Chloride Flush 3 ML SYRINGE IVFLUSH ×2 (00:16→09:30)
[2023-04-21 03:27] VITALS: BP 138/80; PULSE 84; RESP 18; TEMP 37.3; O2SAT 96
[2023-04-21 07:09] VITALS: BP 118/71; PULSE 83; RESP 18; TEMP 36.2; O2SAT 96
[2023-04-21] MEDS: Heparin Sodium,Porcine 5,000 UNIT/ML VIAL 5000 UNIT SUBCUT (09:29)
[2023-04-21] MEDS: carvediloL 25 MG TABLET PO (09:30)
[2023-04-21] MEDS: Sennosides/Docusate Sodium TABLET 2 TAB PO (09:30)
[2023-04-21] MEDS: Sertraline HCL 50 MG TABLET PO (09:30)
[2023-04-21] MEDS: levETIRAcetam 1,000 MG TABLET 1000 MG PO (09:30)
[2023-04-21] MEDS: NIFEdipine ER 60 MG TAB.ER.24 120 MG PO (09:30)
[2023-04-21] MEDS: Losartan Potassium 50 MG TABLET 100 MG PO (09:30)
[2023-04-21] MEDS: Omeprazole 20 MG CAPSULE.DR PO (09:30)
[2023-04-21] MEDS: hydrALAZINE HCl 50 MG TABLET PO (09:30)
[2023-04-21 11:14] VITALS: BP 127/79; PULSE 79; RESP 20; TEMP 36.7; O2SAT 96
--- NOTE | 2023-04-21 13:04 | P.DS_ITS ---
DS: Providers Provider Date of Service: 04/21/23 Date of admission: 04/19/23 22:52 Date of discharge: 04/21/23 Primary care physician: Unknown Physician Consults: 04/19/23 22:58 Consult to Nephrology Routine Consulting Provider: Luis An Reason for consultation: ESRD on HD M/W/F DS: Diagnosis Discharge Diagnosis (1) Normocytic anemia: Status: Acute (2) Syncope: Status: Acute (3) CKD (chronic kidney disease): Status: Acute DS: Summary Hospital Course Hospital Course: 27-year-old male with a PMH significant for?ESRD on hemodialysis M/W/F, ADHD, polysubstance use disorder, HTN, anemia of chronic disease, recurrent orthostatic hypotension, and anxiety who presents to the ED after having a syncopal episode at dialysis earlier today. Pt was laying down during dialysis when he began having a headache, then felt a little lightheaded, and was then observed by nursing staff to syncopize. Pt did not fall. No seizure-like activity or postictal state upon waking. Pt received 3/4 hours of dialysis before being sent to ED for further evaluation. Of note pt has a long bifurcated history of syncopal episodes. In June and July of last year he had multiple episodes of syncope associated with N/V. Eventually he was diagnosed and treated for orthostatic hypotension. Pt was then largely symptom free for many months until February and March of this year when he again experienced multiple syncopal episodes, this time sans N/V. He was admitted to the hospital here on 03/13/2023 through 03/16/2023 for syncope and had positive EEG and started on Keppra at that time.? The following week pt was again admitted here to hospital for another syncopal episode from 03/22/2023 to 03/24/2023.? Orthostatics were negative, Cardiology consulted and did not feel syncope was cardiogenic in nature, patient was found to be anemic and transfused 2 units of PRBCs.? Patient was then admitted to [facility] for syncope and anemia on 03/29/2023 through 04/07/2023 which was initially thought to be a breakthrough seizure but later attributed to orthostatic hypotension. Currently, pt complains of fatigue and mild headache. Has had chronic lower leg pain for past 3-4 months that he reports feel like my bones are bruised. He also notes he has had 2 days of diarrhea, 3-4 episodes yesterday and 2-3 episodes today. Says this is not normal but occasionally happens. Denies abdominlla pain. No hematochezia, melena, hematemasis. No N/V. Denies SOB. No fever, chills. Hospital course Patient was admitted to general medical floor after initial workup being essentially unremarkable save anemia. He was transfused 3 units of packed red cells with an increase in his hemoglobin to 9. He was seen in consultation by Oncology Hematology workup is pending. At this point in time after being seen by the data systems manager he is medically stable for discharge and can resume his out patient dialysis schedule. It is unlikely that this admission was related to syncope Time Spent with Patient Time attestation: Total time managing care of this patient today ____ minutes. Discharge coordination time: Greater than 30 minutes Quality: Safe Use of Opioids Does Pt have an Active Cancer Diagnosis on the Problem List?: No Quality: Stroke Does the patient have a stroke diagnosis?: No Physical Exam Vital Signs: Vital Signs: Last Vital Signs Temp 98.1 F 04/21/23 11:14 Pulse 79 04/21/23 11:14 Resp 20 04/21/23 11:14 BP 127/79 04/21/23 11:14 Pulse Ox 96 04/21/23 11:14 O2 Del Method Room Air 04/21/23 11:14 BMI result Body Mass Index 28.4 Const: Other: Awake alert no acute distress Resp: Other: Clear to auscultation bilaterally no rales rhonchi or wheezes Cardio: Other: No S4; positive S1-S2; no S3 murmurs rubs or gallops GI: Other: Soft nontender nondistended normoactive bowel sounds Extrem: Other: No edema bilaterally DS: Data Data Completed and Pending Completed studies during hospitalization [Text1]: Procedures Performance of Urinary Filtration, Intermittent, Less than 6 Hours Per Day (03/13/23) Transfusion of Nonautologous Red Blood Cells into Peripheral Vein, Percutaneous Approach (03/22/23) Labs on day of discharge: Laboratory Results - last 24 hr 04/20/23 04/20/23 13:06 13:06 WBC 6.0 RBC 2.89 L D Hgb 8.5 L Hct 25.8 L D MCV 89.3 MCH 29.4 MCHC 32.9 RDW 15.7 Plt Count 126 L MPV 9.5 Absolute Nucleated RBC 0.000 Nucleated RBC % (auto) 0.0 Sodium 137 Potassium 4.4 D Chloride 105 Carbon Dioxide 20 L Anion Gap 16 BUN 22 H Creatinine 7.91 H* Estim Creat Clear Calc 18.0 Estimated GFR 8 Random Glucose 91 Calcium 9.5 Magnesium 1.9 Preliminary micro results at discharge 04/19/23 18:17 Blood Culture - Preliminary Blood - Venous No growth after 24 hours. 04/19/23 18:17 Blood Culture - Preliminary Blood - Venous No growth after 24 hours. Discharge Plan Discharge Anticipated Discharge Date/Time: 04/21/23 13:01 Patient Disposition: Home, Self-Care Discharge Diagnosis: syncope Referrals: Physician,Unknown J [Primary Care Provider] - 1 Week Discharge Medications: Continued carvedilol 25 mg tablet 25 mg PO BID atorvastatin 20 mg tablet 20 mg PO BEDTIME ondansetron HCl 4 mg tablet 4 mg PO Q8H PRN (Reason: Nausea) sennosides-docusate sodium [Senna Plus] 8.6-50 mg tablet 2 tab PO BID acetaminophen 500 mg tablet 1,000 mg PO TID PRN (Reason: pain) alprazolam 0.5 mg tablet 0.5 mg PO BID PRN (Reason: anxiety) clonidine HCl 0.2 mg tablet 0.2 mg PO DAILY PRN (Reason: Blood Pressure) pantoprazole 40 mg tablet,delayed release (DR/EC) 40 mg PO DAILY@0630 nitroglycerin 0.4 mg tablet, sublingual 0.4 mg sublingual Q5M PRN (Reason: Chest Pain) calcium carbonate 500 mg calcium (1,250 mg) Tablet,Chewable 500 mg PO DAILY PRN (Reason: Acid Reflux) clonidine 0.3 mg/24 hr patch weekly 1 patch topical SA@0900 gabapentin 100 mg capsule 200 mg PO BID polyethylene glycol 3350 17 gram/dose powder 17 g PO DAILY PRN (Reason: Constipation) nifedipine 60 mg tablet extended release 120 mg PO DAILY losartan 100 mg tablet 100 mg PO DAILY sertraline 50 mg tablet 50 mg PO DAILY cinacalcet 90 mg Tablet 90 mg PO MOWEFR@1645 Rx Instructions: only on dialysis days lactulose 10 gram/15 mL solution 15 ml PO DAILY PRN (Reason: Constipation) sevelamer carbonate 800 mg tablet 2,400 mg PO TIDWMEAL hydrocortisone 0.5 % Cream 1 appl TOPICAL DAILY PRN (Reason: Rash) Rx Instructions: face calcitriol 0.5 mcg Capsule 0.5 mcg PO MOWEFR@1645 Rx Instructions: administer after dialysis on dialysis days ergocalciferol (vitamin D2) [Vitamin D2] 1,250 mcg (50,000 unit) Capsule 1,250 mcg PO FR ketoconazole 2 % Cream 1 appl TOPICAL DAILY PRN (Reason: Rash) Rx Instructions: face levetiracetam 500 mg tablet 1,000 mg PO BID hydralazine 50 mg Tablet 50 mg PO TID Qty: 90 0RF Protocol: Hold for SBP< HOLD for SBP < : 90 Renal Caps 1 mg capsule 1 cap PO DAILY Discharge Orders: Discharge Order (Routine); Ordered 04/21/23 Ordered By: Lemuel Goldstein Diet: Advance to usual diet Activity on Discharge: As tolerated Stand Alone Forms: Patient Portal Discharge page Care Plan Goals: Resume all medicines as taken prior to hospitalization Health Concerns: Resume your outpatient dialysis schedule Plan of Treatment: Follow-up with PCP 2 weeks Assessment: See discharge summary
[2023-04-21 13:21] LABS: Iron 24 mcg/dL (45-160); Lactate Dehydrogenase 127 U/L (118-273); Percent Iron Saturation 12 % (15-50); Total Iron Binding Capacity 203 mcg/dL (228-428); Unsaturated Iron Binding 179 ug/dL
--- NOTE | 2023-04-21 13:25 | PM.PNNEP ---
Subjective Subjective Date of Service: 04/21/23 Interval history: Seen and examined, events noted Physical Exam Vital Signs: Vital Signs: Last Vital Signs Temp 98.1 F 04/21/23 11:14 Pulse 79 04/21/23 11:14 Resp 20 04/21/23 11:14 BP 127/79 04/21/23 11:14 Pulse Ox 96 04/21/23 11:14 O2 Del Method Room Air 04/21/23 11:14 BMI result Body Mass Index 28.4 Const: Other: Awake alert no acute distress Resp: Other: Clear to auscultation bilaterally no rales rhonchi or wheezes Cardio: Other: No S4; positive S1-S2; no S3 murmurs rubs or gallops GI: Other: Soft nontender nondistended normoactive bowel sounds Extrem: Other: No edema bilaterally Objective Data Labs 04/20/23 13:06 04/20/23 13:06 Labs: Laboratory Results - last 24 hr 04/19/23 04/20/23 18:16 13:06 Sodium 137 Potassium 4.4 D Chloride 105 Carbon Dioxide 20 L Anion Gap 16 BUN 22 H Creatinine 7.91 H* Estim Creat Clear Calc 18.0 Estimated GFR 8 Random Glucose 91 Calcium 9.5 Magnesium 1.9 Iron 24 L TIBC 203 L % Saturation 12 L Unsat Iron Binding 179 Lactate Dehydrogenase 127 Microbiology Microbiology Results: Microbiology 04/19/23 18:17 Blood - Venous Blood Culture - Preliminary No growth after 24 hours. 04/19/23 18:17 Blood - Venous Blood Culture - Preliminary No growth after 24 hours. Procedures Date of Service Date of Service: 04/21/23 Assessment & Plan Assessment and plan (1) Normocytic anemia: Status: Acute (2) Syncope: Status: Acute (3) CKD (chronic kidney disease): Status: Acute Plan ESRD: cont HD 3x/wk Pain Syn REC: cont HD 3x/wk; d/c planning Time Spent With Patient Time: Total time managing care of this patient today ____ minutes. Progress Note: Quality Stroke Does the patient have a stroke diagnosis?: No
--- NOTE | 2023-04-21 13:38 | MHC.CM.PN ---
IMM 04/20/23 PATIENT IS DISCHARGED TO HOME TODAY SELF-CARE. HE WILL RESUME HD SCHEDULE @ [facility]. PATIENTS MOTHER WILL PROVIDE TRANSPORT HOME.
[2023-04-21 13:41] LABS: Ferritin 322 ng/mL (20-250)
[2023-04-21] MEDS: Heparin Sodium,Porcine Flush 50 UNITS/5 ML SYRINGE IVFLUSH (15:06)
--- NOTE | 2023-06-24 12:11 | CONS_ITS ---
DATE OF SERVICE: 04/20/2023 HISTORY OF PRESENT ILLNESS: I was asked to see the patient to assist in evaluation and management of patient's dialysis needs in the setting of coming to the hospital complaining of feeling lightheaded as well as having some generalized pain. In summary, he is a 27-year-old gentleman on dialysis Saturday, Saturday, Saturday with multiple chronic medical problems including a history of polysubstance abuse disorder, hypertension, anemia, orthostatic hypotension, anxiety. The patient did receive dialysis prior to coming to the emergency room, but was having symptoms, therefore came off dialysis. He has had multiple hospitalizations for episodes of nausea as well as orthostatic hypotension and pain. PAST MEDICAL HISTORY: As noted above. CURRENT MEDICATIONS: Noted in the admitting notes. They include Xanax, Lipitor, calcitriol, carvedilol, Sensipar, clonidine, losartan, Renvela, Zoloft. SOCIAL HISTORY: He is a nonsmoker. No alcohol or illicit drug use. REVIEW OF SYSTEMS: As noted above. PHYSICAL EXAMINATION: VITAL SIGNS: Blood pressure of 160/80 with a heart rate in the 70s. HEAD: Atraumatic and normocephalic. NECK: Supple. Mucous membranes moist. LUNGS: Clear. CARDIAC: Regular rate and rhythm. ABDOMEN: Soft. EXTREMITIES: 1+ edema. LABORATORY DATA: DICTATION ENDS HERE. MD ANDRE Coelho/BALA / [phone]
== END 2023-04-21 15:47 | disposition home or self-care (01) | DRG 312 ==
LOC: HO.ED 17:57 → HO.EDOVER 04-20 01:25 → HO.IMC 04-20 02:29
PROVIDERS: Physician Assistant; Admitting Provider Student in an Organized Health Care Education/Training Program; Emergency Provider Emergency Medicine Emergency Medical Services; Visit Provider Hospitalist
DX: I95.1 Orthostatic hypotension (principal); N18.6 End stage renal disease; I12.0 Hypertensive chronic kidney disease with stage 5 chronic kidney disease or end stage renal disease; E78.5 Hyperlipidemia, unspecified; K21.9 Gastro-esophageal reflux disease without esophagitis; G89.29 Other chronic pain; K62.89 Other specified diseases of anus and rectum; F19.10 Other psychoactive substance abuse, uncomplicated; F90.9 Attention-deficit hyperactivity disorder, unspecified type; D63.1 Anemia in chronic kidney disease; Z76.5 Malingerer [conscious simulation]; Z99.2 Dependence on renal dialysis; Z79.899 Other long term (current) drug therapy
CPT/HCPCS: 36415; 70450; 71045; 74177; 80048; 80053; 82272; 82728; 83540; 83605; 83615; 83735; 84484; 85025; 85027; 86850; 86900; 86901; 86923; 87040; 93005; 99285; J1642; J1643; J2270; J2405; P9016; Q9967

== ENCOUNTER → 2023-04-19 17:33 | Outpatient (BNV) | payer OTHER, SELFPAY | PROVIDERS: Admitting Provider Student in an Organized Health Care Education/Training Program; Emergency Provider Emergency Medicine Emergency Medical Services; Visit Provider Internal Medicine Cardiovascular Disease | DX: R55 Syncope and collapse (principal) | CPT/HCPCS: 93010 ==

== ENCOUNTER → 2023-04-19 22:52 | Outpatient (BNV) | payer OTHER, SELFPAY | PROVIDERS: Admitting Provider Student in an Organized Health Care Education/Training Program; Emergency Provider Emergency Medicine Emergency Medical Services; Visit Provider Hospitalist | DX: R55 Syncope and collapse (principal); D64.9 Anemia, unspecified; N18.9 Chronic kidney disease, unspecified | CPT/HCPCS: 99223; 99232; 99239 ==

== ENCOUNTER → 2023-04-19 22:52 | Outpatient (BNV) | payer OTHER, SELFPAY | PROVIDERS: Admitting Provider Student in an Organized Health Care Education/Training Program; Emergency Provider Emergency Medicine Emergency Medical Services; Visit Provider Internal Medicine Medical Oncology | DX: N18.6 End stage renal disease (principal); D63.1 Anemia in chronic kidney disease | CPT/HCPCS: 99222 ==

== ENCOUNTER 2023-04-29 14:29 | Outpatient (AMB) | payer OTHER, SELFPAY ==
[2023-04-29 14:37] VITALS: BP 130/92; PULSE 80; O2SAT 99
--- NOTE | 2023-04-29 14:37 | MHC.PC.OV ---
Vital Signs 04/29/23 14:37 Height 6 ft Weight 221 lb 6 oz BMI 30.0 BP 130/92 H Blood Pressure Location Lt brachial Position Sitting Pulse 80 Pulse Source Pulse Oximeter Pulse Oximetry (%) 99 Oxygen Delivery Method Room Air Intake Visit Reasons: New Patient/ Knee pain/ Kidney failure Allergies ceftriaxone Adverse Reaction (Verified 04/29/23 14:40) Nausea and Vomiting lorazepam [From Ativan] Adverse Reaction (Verified 04/29/23 14:40) Shakiness metoclopramide [From Reglan] Adverse Reaction (Verified 04/29/23 14:40) Nausea Medication List - Last Reconciled 04/29/23 by Pillo Trejo, FINANCIAL PLANNING CONSULTANT-BC acetaminophen 1,000 mg PO TID PRN alprazolam 0.5 mg PO BID PRN atorvastatin 20 mg PO BEDTIME B complex with C 20-folic acid 1 mg (Renal Caps) 1 cap PO DAILY calcitriol 0.5 mcg PO MOWEFR@1645 calcium carbonate 500 mg PO DAILY PRN carvedilol 25 mg PO BID cinacalcet 90 mg PO MOWEFR@1645 clonidine 1 patch topical SA@0900 clonidine HCl 0.2 mg PO DAILY PRN ergocalciferol (vitamin D2) (Vitamin D2) 1,250 mcg PO FR gabapentin 200 mg PO BID hydralazine 50 mg See Protocol PO TID hydrocortisone 0.5% 1 appl topical DAILY PRN ketoconazole 2% 1 appl topical DAILY PRN lactulose 15 mL PO DAILY PRN levetiracetam 1,000 mg PO BID losartan 100 mg PO DAILY nifedipine ER 120 mg PO DAILY nitroglycerin 0.4 mg sublingual Q5M PRN ondansetron HCl 4 mg PO Q8H PRN polyethylene glycol 3350 17 grams PO DAILY PRN sennosides-docusate sodium 8.6-50 mg (Senna Plus) 2 tabs PO BID sertraline 50 mg PO DAILY sevelamer carbonate 2,400 mg PO TIDWMEAL Tobacco use date assessed: 04/29/23 Dental Screening Dental Screen Date: 04/29/23 Did you have a dental visit in the last 12 months?: No Did you have a dental problem in the last 6 months where you did not have access to dental care?: No Was dental information given to patient?: Patient has dentist HPI New Patient/ Knee pain/ Kidney failure HPI Details Pt was seen in the ER on 03/29 after a syncopal episode. He was seen by neurology due to hx of seizure disorder. Pt had a video EEG while keppra was held which showed no epileptiform activity. Keppra was resumed. Head CT showed no acute pathology, multiple coarse calfifications within the right frontal lobe and left parietal lobe which may represent vascular calcification vs sequela of previous infection. Pending MRI of the brain. Pt is to follow up with neurology at [place]. Pt was treated for a UTI with ceftriaxone which caused vomiting, changed to cefpodoxime daily after dialysis. Pt was to resume cefuroxime at d/c. He was also seen by cardiology due to recurrent syncope, echo was performed (see results). Recommended outpatient follow up and loop recorder. Pt was then seen at [place] ER on 04/19 after another syncopal episode. Labs were significant for H&H of 6.7/19.8, platelets 123, creatinine of 5.67, initial troponin 59.8. Electrolytes and Hepatic function were WNL. Stool negative for occult blood. Chest xr showed no evidence of acute cardiopulmonary disease. 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 EKG showed normal sinus rhythm with no ischemic changes. Pt was treated with morphine, IV fluids, and 1 unit of PRBCs. He was admitted for further evaluation. Pt was seen by nephrology, recommended continuing dialysis 3 times a week due to ESRD. Pt has not had any syncopal episodes since being discharged and reports doing well. Pt needs a referral to neurology and hematology, will refer (for follow ups from inpt). Will order labs. Denies fever, chills, and dizziness. [facility] Medical History (Updated 04/29/23 @ 15:27 by NEL Alan) Anemia Back pain Bilateral lower extremity pain CKD (chronic kidney disease) End stage chronic kidney disease ESRD on dialysis HTN (hypertension) Normocytic anemia Seizure disorder Syncope Family History Sister Substance use disorder Social History Household Members: Family Household Members Other:: mom, step dad, sister and nephew Housing: House Do you presently have visiting nurse or other home services: No Alcohol intake: former Patient Tobacco Use Status: Never used Tobacco e-Cigarette/Vaping Use: Never Used Substance Use Type: Marijuana service: No Cognitive needs: No Hearing needs: No Vision needs: No Questionnaire PHQ-9 Over the last 2 weeks, how often have you been bothered by any of the following problems? 1. Little interest or pleasure in doing things: more than half the days 2. Feeling down, depressed, or hopeless: nearly every day 3. Trouble falling or staying asleep, or sleeping too much: several days 4. Feeling tired or having little energy: several days 5. Poor appetite or overeating: more than half the days 6. Feeling bad about yourself - or that you are a failure or have let yourself or your family down: not at all 7. Trouble concentrating on things, such as reading the newspaper or watching television: several days 8. Moving or speaking so slowly that other people could have noticed. Or the opposite - being so fidgety or restless that you have been moving around a lot more than usual: not at all 9. Thoughts that you would be better off or of hurting yourself in some way: not at all Total score: 10 Source: Developed by Drs. Shad Hansen, Shirley Jenkins, Matthew Rojas and colleagues, with an educational marcela from [employer]. Thrive Questionnaire Date Thrive assessed: 04/29/23 I am a: Patient What is your living situation today?: I have a steady place to live Within the past 12 months, did the food you bought not last and you didn't have the money to get more?: Never true Within the past 12 months, did you worry whether your food would run out before you got money to buy more?: Never true Do you have trouble paying for medicines?: No Do you have trouble getting transportation to medical appointments?: No Do you have trouble paying your heating and electricity bill?: No Do you have trouble taking care of your child, family member or friend?: No Do you have trouble with day-to-day activities such as bathing, preparing meals, shopping, managing finances, etc.?: Yes Are you currently unemployed and looking for a job?: No Are you interested in more education?: No AUDIT C Alcohol Use Questionnaire (AUDIT-C) 1. How often do you have a drink containing alcohol?: Never 3. How often do you have six or more drinks on one occasion?: Never Total Score: 0 NAHED-7 AMB Questionnaire NAHED-7 Date NAHED - 7 assessed: 04/29/23 Feeling nervous, anxious, or on edge: 2 = More than half the days Not being able to stop or control worryin = Several days Worrying too much about different things: 1 = Several days Trouble relaxin = More than half the days Being so restless that it is hard to sit still: 1 = Several days Becoming easily annoyed or irritable: 1 = Several days Feeling afraid as if something awful might happen: 0 = Not at all Total NAHED-7 score (0-4 normal; 5-9 mild; 10-14 moderate; 15-21 severe): 8 Source: Developed by Drs. Shad Hansen, Shirley Jenkins, Matthew Rojas and colleagues, with an educational marcela from [employer]. Review of Systems Const Reports as per HPI Physical exam (Primary Care) Vital Signs: Last Vital Signs Pulse 80 04/29/23 14:37 BP 130/92 H 04/29/23 14:37 Pulse Ox 99 04/29/23 14:37 Oxygen Delivery Method Room Air 04/29/23 14:37 BMI result Body Mass Index 30.0 Tobacco/Smoking Status: Tobacco use Status Tobacco use date assessed 04/29/23 04/29/23 14:48 Patient Tobacco Use Status Never used Tobacco 04/29/23 14:48 e-Cigarette/Vaping Use Never Used 04/29/23 14:48 PHQ-9: PHQ-9 Score PHQ-9: Total score 10 04/29/23 16:25 Thrive Assessment: Date of Thrive Assessment Date Thrive assessed 04/29/23 04/29/23 16:25 Const Other: using cane General: cooperative Orientation/consciousness: patient oriented x3 Limitations: ambulation with cane Resp Effort & Inspection: normal respiratory effort Auscultation: clear to auscultation bilaterally Cardio Rate: regular rate Rhythm: regular rhythm Heart sounds: S1 normal heart sound present and S2 normal heart sound present Skin Other: LLQ with peritoneal dialysis port, left upper chest hemodialysis port, central line port to right upper chest Neuro General: patient oriented x3 Extrem Right lower extremity: no edema Left lower extremity: no edema Psych Appearance: grossly normal Mental Status: mental status grossly normal Speech and movement: Normal speech and movement present Affect: normal affect Attitude: cooperative Thought process: Normal thought process present Thought content: Normal thought content present Insight: Good insight present (Psych) Judgement: Good judgement present (Psych) Assessment and Plan Assessment & Plan (1) Seizure disorder: Code(s): G40.909 - Epilepsy, unspecified, not intractable, without status epilepticus Plan: Referred to neurology (2) Anemia: Code(s): D64.9 - Anemia, unspecified Plan: Labs ordered, referred to hematology (3) ESRD on dialysis: Code(s): N18.6 - End stage renal disease; Z99.2 - Dependence on renal dialysis Plan: Labs ordered (4) Syncope: Code(s): R55 - Syncope and collapse Plan: Labs ordered Plan The patient agreed to the use of a director biomedical engineering for this encounter. Scribed for NEL San by Stacey Hope director biomedical engineering, on 04/29/2023 at 15:10 EST. Orders: Orders Comprehensive Met. Panel Today D64.9 - Anemia, unspecified, G40.909 - Epilepsy, unspecified, not intractable, without status epilepticus, N18.6 - End stage renal disease, R55 - Syncope and collapse, Z99.2 - Dependence on renal dialysis TSH reflex Free T4 Today D64.9 - Anemia, unspecified, G40.909 - Epilepsy, unspecified, not intractable, without status epilepticus, N18.6 - End stage renal disease, R55 - Syncope and collapse, Z99.2 - Dependence on renal dialysis Complete Blood Count Auto Diff Today D64.9 - Anemia, unspecified, G40.909 - Epilepsy, unspecified, not intractable, without status epilepticus, N18.6 - End stage renal disease, R55 - Syncope and collapse, Z99.2 - Dependence on renal dialysis UA CC w/rflx Micro + Cult Today D64.9 - Anemia, unspecified, G40.909 - Epilepsy, unspecified, not intractable, without status epilepticus, N18.6 - End stage renal disease, R55 - Syncope and collapse, Z99.2 - Dependence on renal dialysis Lipid Panel Today D64.9 - Anemia, unspecified, N18.6 - End stage renal disease, R55 - Syncope and collapse, Z99.2 - Dependence on renal dialysis Referrals Neurology Referral G40.909 - Epilepsy, unspecified, not intractable, without status epilepticus Hematology & Oncology Referral D64.9 - Anemia, unspecified Medications: Discontinued levetiracetam 500 mg PO BID 60 tabs 0RF Coding Level of Care Code New Pt Level 4 (60164) Diagnoses Seizure disorder G40.909 Anemia D64.9 ESRD on dialysis N18.6; Z99.2 Syncope R55
== END 2023-04-29 15:43 | disposition home or self-care (01) ==
PROVIDERS: Visit Provider Nurse Practitioner Family
DX: G40.909 Epilepsy, unspecified, not intractable, without status epilepticus (principal); D64.9 Anemia, unspecified; N18.6 End stage renal disease; Z99.2 Dependence on renal dialysis; R55 Syncope and collapse
CPT/HCPCS: 99204

== ENCOUNTER 2023-05-03 21:43 | Emergency (ER) | payer OTHER, SELFPAY ==
[2023-05-03 21:51] VITALS: BP 123/82; BP 162/102; PULSE 102; PULSE 91; RESP 18; TEMP 37.2; O2SAT 95; O2SAT 98; BMI 37.3
[2023-05-03 21:52] VITALS: BP 123/82; PULSE 91; RESP 18; TEMP 37.2; O2SAT 95
--- NOTE | 2023-05-03 21:55 | ECG_ITS ---
Test Reason : SYNCOPE Blood Pressure : / mmHG Vent. Rate : 088 BPM Atrial Rate : 088 BPM P-R Int : 172 ms QRS Dur : 092 ms QT Int : 352 ms P-R-T Axes : 050 014 046 degrees QTc Int : 425 ms Normal sinus rhythm Normal ECG When compared with ECG of 19-APR-2023 17:45, No significant change was found Referred By: Edmund Salmeron Electronically Signed By:Juvencio Vila
[2023-05-03 22:07] LABS: Glucose, Whole Blood 92 mg/dL (60-115)
--- NOTE | 2023-05-03 22:20 | ED_ITS ---
HPI - Syncope General Chief Complaint: Syncope Stated Complaint: syncopal episode, per ems Time Seen by Provider: 05/03/23 22:09 Source: patient and EMS Mode of arrival: EMS Limitations: no limitations History of Present Illness HPI narrative: Patient comes to the emergency room for a syncopal episode. Patient states that he had dialysis today, patient got home, patient was walking around his house and had a syncopal episode. Patient's mother witnessed the event, states that the patient did lose conscious. Patient denies any chest pain or shortness of breath. At this time, patient states that he feels weak. Of note, patient was admitted from April 19 to 04/21/2023, patient had a syncopal episode, cardiology was consulted, determined this was not of cardiac etiology, likely secondary to be orthostatic and also secondary to anemia, patient required a blood transfusion. Related Data Home Medications Medication Instructions Recorded Confirmed acetaminophen 500 mg tablet 1,000 mg PO TID PRN pain 03/13/23 04/29/23 alprazolam 0.5 mg tablet 0.5 mg PO BID PRN anxiety 03/13/23 04/29/23 atorvastatin 20 mg tablet 20 mg PO BEDTIME 03/13/23 04/29/23 calcitriol 0.5 mcg capsule 0.5 mcg PO MOWEFR@1645 03/13/23 04/29/23 calcium carbonate 500 mg calcium 500 mg PO DAILY PRN Acid Reflux 03/13/23 04/29/23 (1,250 mg) chewable tablet carvedilol 25 mg tablet 25 mg PO BID 03/13/23 04/29/23 cinacalcet 90 mg tablet 90 mg PO MOWEFR@1645 03/13/23 04/29/23 clonidine 0.3 mg/24 hr weekly 1 patch topical SA@0900 03/13/23 04/29/23 transdermal patch clonidine HCl 0.2 mg tablet 0.2 mg PO DAILY PRN Blood Pressure 03/13/23 04/29/23 ergocalciferol (vitamin D2) 1,250 1,250 mcg PO FR 03/13/23 04/29/23 mcg (50,000 unit) capsule (Vitamin D2) gabapentin 100 mg capsule 200 mg PO BID 03/13/23 04/29/23 hydrocortisone 0.5 % topical cream 1 appl topical DAILY PRN Rash 03/13/23 04/29/23 ketoconazole 2 % topical cream 1 appl topical DAILY PRN Rash 03/13/23 04/29/23 lactulose 10 gram/15 mL oral 15 ml PO DAILY PRN Constipation 03/13/23 04/29/23 solution losartan 100 mg tablet 100 mg PO DAILY 03/13/23 04/29/23 nifedipine 60 mg tablet,extended 120 mg PO DAILY 03/13/23 04/29/23 release nitroglycerin 0.4 mg sublingual 0.4 mg sublingual Q5M PRN Chest 03/13/23 04/29/23 tablet Pain ondansetron HCl 4 mg tablet 4 mg PO Q8H PRN Nausea 03/13/23 04/29/23 polyethylene glycol 3350 17 17 g PO DAILY PRN Constipation 03/13/23 04/29/23 gram/dose oral powder sennosides 8.6 mg-docusate sodium 2 tab PO BID 03/13/23 04/29/23 50 mg tablet (Senna Plus) sertraline 50 mg tablet 50 mg PO DAILY 03/13/23 04/29/23 sevelamer carbonate 800 mg tablet 2,400 mg PO TIDWMEAL 03/13/23 04/29/23 levetiracetam 500 mg tablet 1,000 mg PO BID 03/22/23 04/29/23 vitamin B complex and vitamin C 1 cap PO DAILY 04/19/23 04/29/23 no.20-folic acid 1 mg capsule (Renal Caps) Previous Rx's Medication Instructions Recorded hydralazine 50 mg tablet 50 mg PO TID #90 tabs 03/24/23 Allergies Allergy/AdvReac Type Severity Reaction Status Date / Time ceftriaxone AdvReac Nausea and Verified 04/29/23 14:40 Vomiting lorazepam [From Ativan] AdvReac Shakiness Verified 04/29/23 14:40 metoclopramide [From Reglan] AdvReac Nausea Verified 04/29/23 14:40 Review of Systems Review of Systems: Constitutional : No Weight loss, No Fever, No Chills, No Night Sweats, complain of chronic fatigue ENT/Mouth : No Hearing loss, No Ear Pain, No Nasal Congestion, No Sinus Pain, No Hoarseness, No sore throat, No Rhinorrhea, No Swallowing Difficulty Eyes: No Eye Pain, No Swelling, No Redness, No Foreign Body, No Discharge, No Vision Changes Cardiovascular : No Chest Pain, No SOB, No Dyspnea on Exertion, No Orthopnea, No Edema, No Palpitations Respiratory : No Cough, No Sputum, No Wheezing, No Smoke Exposure, No Dyspnea Gastrointestinal : No Nausea, No Vomiting, No Diarrhea, No Constipation, No abdominal Pain, No Hematochezia, No Melena Genitourinary : no irregular bleeding, No Dysuria, No Urinary Frequency, No Hematuria, No Urinary Incontinence, No Urgency, No Flank Pain, No Urinary Flow Changes, No Hesitancy Musculoskeletal complaining of chronic lower extremity pain worsened by dialysis, No Joint Swelling Skin : No Skin Lesions, No rash Neuro : No Weakness, No Numbness, No Paresthesias, complaining of 1 episode of loss of consciousness., No Dizziness, No Headache Psych : No Anxiety/Panic, No Depression, No SI/HI/AH/VH, No Social Issues, Heme/Lymph: No Bruising, No Bleeding,No Lymphadenopathy Endocrine : No Polyuria, No Polydipsia, No Temperature Intolerance [facility] Past Medical History Medical History Anemia Back pain Bilateral lower extremity pain CKD (chronic kidney disease) End stage chronic kidney disease ESRD on dialysis HTN (hypertension) Normocytic anemia Seizure disorder Syncope Family History Family History Sister Substance use disorder Social History Social History Household Members: Family Household Members Other:: mom, step dad, sister and nephew Housing: House Do you presently have visiting nurse or other home services: No Alcohol intake: former Patient Tobacco Use Status: Never used Tobacco e-Cigarette/Vaping Use: Never Used Substance Use Type: Marijuana Advance Directives: No Advance Directives Information Provided: No service: No Cognitive needs: No Hearing needs: No Vision needs: No Physical Exam Vital Signs: Vital Signs: Last Vital Signs Temp 98.5 F 05/04/23 00:27 Pulse 83 05/04/23 00:27 Resp 17 05/04/23 00:27 BP 141/83 H 05/04/23 00:27 Pulse Ox 97 05/04/23 00:27 O2 Del Method Room Air 05/04/23 00:27 BMI result Body Mass Index 37.3 Const: Other: Appearance: Alert. Oriented X3. No acute distress. Eyes: Pupils equal, round and reactive to light. ENT: Pharynx normal. Neck: Normal inspection. Neck supple. No lymph nodes noted. No crepitus CVS: Normal heart rate and rhythm. Pulses normal. Normal S1 and S2 Respiratory: No respiratory distress. Breath sounds normal. No Wheezing. No rales Abdomen: Soft and nontender. No rigidity. No distention. Skin: Skin warm and dry. Pale skin color. Normal skin turgor. Extremities: No lower extremity edema. No Lacerations. No Rash. Patient able to flex and extend both knees. Neuro: Oriented X 3. No motor deficit. No sensory deficit. Moving all extremities. No slurred speech. CN 2 through 12 grossly intact Psych: calm, cooperative, normal affect Course Course Course Narrative: -all of patient's labs pending Medical Decision Making Medical Decision Making [facility] Narrative: -my interpretation of EKG: Normal sinus rhythm, heart rate 88, no ST segment dep ression or elevation, no T-wave inversion, QTC 425 -orthostatics pending -orthostatic vitals negative, patient feels well to go home. Differential Diagnosis Differential Diagnoses: The differential diagnosis associated with the presentation includes (Chronic orthostatic hypotension, over dialyzed, anemic) Admission/Observation Consideration of admission/observation: Escalation of care including admission/observation considered (Patient has history of significant orthostatic hypotension, admission was considered.) Lab Data [facility] Lab Attestation statement: I reviewed the patient's lab results. 05/03/23 23:13 05/03/23 23:13 Labs: Lab Results 05/03/23 05/03/23 05/03/23 Range/Units 22:02 23:13 23:13 WBC 7.5 (4.8-10.8) X10*3/uL RBC 3.31 L (4.60-5.80) X10*6/uL Hgb 10.2 L (14.0-18.0) g/dl Hct 30.6 L (42.0-52.0) % MCV 92.4 (80.0-98.0) fL MCH 30.8 (27.0-33.0) pg MCHC 33.3 (31.0-36.0) g/dl RDW 17.9 H (11.0-16.0) % Plt Count 140 L (160-400) X10*3/uL MPV 9.0 L (9.4-12.4) fL Immature Gran % (Auto) 0.4 (0.0-0.4) % Neut % (Auto) 70.2 (45-73) % Lymph % (Auto) 13.7 L (20-40) % Valley % (Auto) 10.8 (2-11) % Eos % (Auto) 4.4 H (0-4) % Baso % (Auto) 0.5 (0-2) % Lymph # (Auto) 1.0 L (1.2-4.9) X10*3/uL Valley # (Auto) 0.8 (0.1-1.2) X10*3/uL Eos # (Auto) 0.3 (0.0-0.4) X10*3/uL Baso # (Auto) 0.0 (0.0-0.2) X10*3/uL Abs Immat Gran (auto) 0.03 (0.00-0.03) X10*3/uL Absolute Neuts (auto) 5.3 (2.0-8.3) x10*3/uL Absolute Nucleated RBC 0.000 (0.0-0.012) X10*3/uL Nucleated RBC % (auto) 0.0 (0.0-0.2) /100WBC PT 11.5 (11.1-13.3) SEC INR 0.9 (0.9-1.1) Sodium (135-145) mmol/L Potassium (3.3-5.1) mmol/L Chloride (96-108) mmol/L Carbon Dioxide (22-29) mmol/L Anion Gap (12-20) BUN (9-16) mg/dL Creatinine (0.5-1.4) mg/dL Estim Creat Clear Calc Estimated GFR POC Glucose 92 (60-115) mg/dL Random Glucose (60-115) mg/dL Calcium (8.4-10.2) mg/dL Total Bilirubin (0.0-1.0) mg/dL Direct Bilirubin (0.0-0.5) mg/dL AST (5-37) U/L ALT (0-40) U/L Alkaline Phosphatase (39-117) U/L Troponin I High Sens (<3.5-35.0) ng/L Total Protein (6.5-8.0) g/dL Albumin (3.5-5.0) g/dL Ethyl Alcohol mg/dL Blood Type Antibody Screen 05/03/23 05/03/23 05/03/23 Range/Units 23:13 23:13 23:13 WBC (4.8-10.8) X10*3/uL RBC (4.60-5.80) X10*6/uL Hgb (14.0-18.0) g/dl Hct (42.0-52.0) % MCV (80.0-98.0) fL MCH (27.0-33.0) pg MCHC (31.0-36.0) g/dl RDW (11.0-16.0) % Plt Count (160-400) X10*3/uL MPV (9.4-12.4) fL Immature Gran % (Auto) (0.0-0.4) % Neut % (Auto) (45-73) % Lymph % (Auto) (20-40) % Valley % (Auto) (2-11) % Eos % (Auto) (0-4) % Baso % (Auto) (0-2) % Lymph # (Auto) (1.2-4.9) X10*3/uL Valley # (Auto) (0.1-1.2) X10*3/uL Eos # (Auto) (0.0-0.4) X10*3/uL Baso # (Auto) (0.0-0.2) X10*3/uL Abs Immat Gran (auto) (0.00-0.03) X10*3/uL Absolute Neuts (auto) (2.0-8.3) x10*3/uL Absolute Nucleated RBC (0.0-0.012) X10*3/uL Nucleated RBC % (auto) (0.0-0.2) /100WBC PT (11.1-13.3) SEC INR (0.9-1.1) Sodium 139 (135-145) mmol/L Potassium 3.4 D (3.3-5.1) mmol/L Chloride 103 (96-108) mmol/L Carbon Dioxide 25 (22-29) mmol/L Anion Gap 14 (12-20) BUN 12 (9-16) mg/dL Creatinine 5.92 H* (0.5-1.4) mg/dL Estim Creat Clear Calc 23.9 Estimated GFR 11 POC Glucose (60-115) mg/dL Random Glucose 85 (60-115) mg/dL Calcium 10.4 H D (8.4-10.2) mg/dL Total Bilirubin 0.7 (0.0-1.0) mg/dL Direct Bilirubin 0.2 (0.0-0.5) mg/dL AST 16 (5-37) U/L ALT 13 (0-40) U/L Alkaline Phosphatase 49 (39-117) U/L Troponin I High Sens 20.9 D (<3.5-35.0) ng/L Total Protein 6.6 (6.5-8.0) g/dL Albumin 4.1 (3.5-5.0) g/dL Ethyl Alcohol < 10 mg/dL Blood Type O Positive Antibody Screen NEGATIVE Critical Care Time Critical Care Time Critical Care Time: Yes Total Critical Care Time: 45 Attestation: I have personally provided critical care time. Time includes review of lab data, radiology results, discussion with consultants, and monitoring for potential decompensation. Intervention performed as documented. Discharge Plan Discharge Clinical Impression: Chronic orthostatic hypotension, Chronic leg pain Patient Disposition: Home, Self-Care Instructions: Hypotension (ED) Additional Instructions: Please follow-up with your primary care physician tomorrow. If you have any worsening or new symptoms, please return to the emergency room or call 911 Prescriptions: No Action carvedilol 25 mg tablet 25 mg PO BID atorvastatin 20 mg tablet 20 mg PO BEDTIME ondansetron HCl 4 mg tablet 4 mg PO Q8H PRN (Reason: Nausea) sennosides-docusate sodium [Senna Plus] 8.6-50 mg tablet 2 tab PO BID acetaminophen 500 mg tablet 1,000 mg PO TID PRN (Reason: pain) alprazolam 0.5 mg tablet 0.5 mg PO BID PRN (Reason: anxiety) clonidine HCl 0.2 mg tablet 0.2 mg PO DAILY PRN (Reason: Blood Pressure) nitroglycerin 0.4 mg tablet, sublingual 0.4 mg sublingual Q5M PRN (Reason: Chest Pain) calcium carbonate 500 mg calcium (1,250 mg) Tablet,Chewable 500 mg PO DAILY PRN (Reason: Acid Reflux) clonidine 0.3 mg/24 hr patch weekly 1 patch topical SA@0900 gabapentin 100 mg capsule 200 mg PO BID polyethylene glycol 3350 17 gram/dose powder 17 g PO DAILY PRN (Reason: Constipation) nifedipine 60 mg tablet extended release 120 mg PO DAILY losartan 100 mg tablet 100 mg PO DAILY sertraline 50 mg tablet 50 mg PO DAILY cinacalcet 90 mg Tablet 90 mg PO MOWEFR@1644 Rx Instructions: only on dialysis days lactulose 10 gram/15 mL solution 15 ml PO DAILY PRN (Reason: Constipation) sevelamer carbonate 800 mg tablet 2,400 mg PO TIDWMEAL hydrocortisone 0.5 % Cream 1 appl TOPICAL DAILY PRN (Reason: Rash) Rx Instructions: face calcitriol 0.5 mcg Capsule 0.5 mcg PO MOWEFR@1644 Rx Instructions: administer after dialysis on dialysis days ergocalciferol (vitamin D2) [Vitamin D2] 1,250 mcg (50,000 unit) Capsule 1,250 mcg PO FR ketoconazole 2 % Cream 1 appl TOPICAL DAILY PRN (Reason: Rash) Rx Instructions: face levetiracetam 500 mg tablet 1,000 mg PO BID hydralazine 50 mg Tablet 50 mg PO TID Qty: 90 0RF Protocol: Hold for SBP< HOLD for SBP < : 90 Renal Caps 1 mg capsule 1 cap PO DAILY
--- NOTE | 2023-05-03 22:55 | MHC.EDTECH ---
PATIENT TOLD THIS TECH THAT HE IS UNABLE TO STAND DUE TO HIS LEGS BEING WEAK THIS TECH TOLD MD AND SHE IS OK WITH NOT DOING ORTHOSTATIC VITALS
[2023-05-03 23:18] LABS: MANUAL DIFF FLAG NO
[2023-05-03 23:19] LABS: Basophils Percent Auto 0.5 % (0-2); Eosinophils Absolute Auto 0.3 X10*3/uL (0.0-0.4); Eosinophils Percent Auto 4.4 % (0-4); Hematocrit 30.6 % (42.0-52.0); Hemoglobin 10.2 g/dl (14.0-18.0); Imm Gran Abs Auto 0.03 X10*3/uL (0.00-0.03); Imm Gran Pct Auto 0.4 % (0.0-0.4); Lymphocytes Percent Auto 13.7 % (20-40); Mean Corpuscular HGB Conc 33.3 g/dl (31.0-36.0); Mean Corpuscular Hemoglobin 30.8 pg (27.0-33.0); Mean Corpuscular Volume 92.4 fL (80.0-98.0); Monocytes Absolute Auto 0.8 X10*3/uL (0.1-1.2); Monocytes Percent Auto 10.8 % (2-11); Neutrophils Absolute Auto 5.3 x10*3/uL (2.0-8.3); Neutrophils Percent Auto 70.2 % (45-73); Platelet Count 140 X10*3/uL (160-400); Red Blood Count 3.31 X10*6/uL (4.60-5.80); Red Cell Distribution Width 17.9 % (11.0-16.0); White Blood Count 7.5 X10*3/uL (4.8-10.8)
[2023-05-03 23:24] LABS: INTERNATIONAL NORM RATIO 0.9 (0.9-1.1); Prothrombin Time 11.5 SEC (11.1-13.3)
[2023-05-03 23:39] LABS: Troponin-I High Sensitivity 20.9 ng/L (<3.5-35.0)
[2023-05-03 23:44] LABS: Alanine Aminotransferase 13 U/L (0-40); Albumin Level 4.1 g/dL (3.5-5.0); Alkaline Phosphatase 49 U/L (39-117); Anion Gap 14 (12-20); Aspartate Amino Transferase 16 U/L (5-37); Bilirubin Direct 0.2 mg/dL (0.0-0.5); Bilirubin Total 0.7 mg/dL (0.0-1.0); Blood Urea Nitrogen 12 mg/dL (9-16); Calcium 10.4 mg/dL (8.4-10.2); Carbon Dioxide 25 mmol/L (22-29); Chloride 103 mmol/L (96-108); Creatinine Clr Calc Pharmacy 23.9; Estimated Glomerular Filt Rate 11; Ethanol < 10 mg/dL; Glucose Random 85 mg/dL (60-115); Potassium 3.4 mmol/L (3.3-5.1); Sodium 139 mmol/L (135-145); Total Protein 6.6 g/dL (6.5-8.0)
[2023-05-04 00:22] VITALS: BP 132/80; PULSE 80
[2023-05-04 00:24] VITALS: BP 136/88; PULSE 86
[2023-05-04 00:25] VITALS: BP 121/85; PULSE 108
[2023-05-04 00:27] VITALS: BP 141/83; PULSE 83; RESP 17; TEMP 36.9; O2SAT 97
[2023-05-04 03:42] VITALS: BP 132/78; PULSE 95; RESP 16; O2SAT 97
[2023-05-04] MEDS: traMADoL HCL 50 MG TABLET PO (03:43)
== END 2023-05-04 04:08 | disposition home or self-care (01) ==
PROVIDERS: Emergency Provider Emergency Medicine
DX: I95.1 Orthostatic hypotension (principal); G89.29 Other chronic pain; M79.605 Pain in left leg; M79.604 Pain in right leg; I12.0 Hypertensive chronic kidney disease with stage 5 chronic kidney disease or end stage renal disease; N18.6 End stage renal disease; Z99.2 Dependence on renal dialysis; D64.9 Anemia, unspecified; Z79.899 Other long term (current) drug therapy
CPT/HCPCS: 36415; 80048; 80076; 80307; 82947; 84484; 85025; 85610; 86850; 86900; 86901; 93005; 99283; 99284

== ENCOUNTER → 2023-05-03 21:55 | Outpatient (BNV) | payer OTHER, SELFPAY | PROVIDERS: Emergency Provider Emergency Medicine; Visit Provider Internal Medicine Cardiovascular Disease | DX: R55 Syncope and collapse (principal) | CPT/HCPCS: 93010 ==

== ENCOUNTER 2023-05-18 19:35 | Emergency (ER) | payer OTHER, SELFPAY ==
--- NOTE | 2023-05-18 | ECG_ITS ---
Test Reason : PALPITATIONS Blood Pressure : / mmHG Vent. Rate : 086 BPM Atrial Rate : 086 BPM P-R Int : 184 ms QRS Dur : 094 ms QT Int : 362 ms P-R-T Axes : 059 024 053 degrees QTc Int : 433 ms Normal sinus rhythm Nonspecific ST and T wave abnormality Abnormal ECG When compared with ECG of 03-MAY-2023 21:59, No significant change was found Referred By: Generic ED Physician Electronically Signed By:HUGH STARR
--- NOTE | ~2023-05-18 | XR_ITS ---
EXAMINATION: XR CHEST CLINICAL INFORMATION: Syncope COMPARISON: None available. TECHNIQUE: 2 views of the chest were obtained. FINDINGS: Bilateral central lines in place. No significant abnormality is noted involving the heart, lungs, mediastinum, bony thorax or soft tissues. XR/XR chest 2V IMPRESSION: No active chest disease. No pneumothorax
--- NOTE | ~2023-05-18 | CT_ITS ---
EXAMINATION: CT ABDOMEN AND PELVIS WITHOUT CONTRAST CLINICAL INFORMATION: Abdominal pain COMPARISON: 04/19/2023 TECHNIQUE: Multidetector volumetric imaging was performed from the superior aspect of the liver through the pubic symphysis. Sagittal and coronal reformatted images were obtained on the technologist's workstation. This CT examination was performed using dose optimization techniques as appropriate, variously including the following: *Automated exposure control *Adjustment of mA and/or kV according to patient size (this includes techniques or standardized protocols for targeted exams where dose is matched to indication/reason for exam; i.e. extremities or head) *Use of iterative reconstruction technique DLP: 629 mGy-cm FINDINGS: LUNG BASES: The visualized lung bases are unremarkable. LIVER, GALLBLADDER, AND BILIARY TREE: The liver is normal in size, shape, and attenuation. No focal hepatic lesion or biliary ductal dilatation is present. Gallstone without acute inflammatory changes. PANCREAS: Unremarkable. SPLEEN: Unremarkable. ADRENAL GLANDS: Unremarkable. KIDNEYS AND URETERS: The kidneys are normal in size, shape, and attenuation. No hydronephrosis, hydroureter, or calculi seen. No perinephric stranding. BLADDER: Unremarkable. GASTROINTESTINAL TRACT: The small and large bowel are unremarkable. The appendix is unremarkable. Free fluid has resolved. Peritoneal dialysis catheter remains in place. No fluid collection. ABDOMINAL WALL: No significant hernia is appreciated. LYMPH NODES: Normal. VASCULAR: Unremarkable. PELVIC VISCERA: Unremarkable. OSSEOUS STRUCTURES: Unremarkable. CT/CT abdomen pelvis wo IV con IMPRESSION: No focal abnormality to explain patient's symptoms. Incidental gallstones. Fleischner guidelines were followed.
[2023-05-18 19:44] VITALS: BP 134/110; BP 145/103; PULSE 106; PULSE 108; RESP 16; TEMP 36.7; O2SAT 98; BMI 29.7
[2023-05-18 20:06] VITALS: BP 147/103; PULSE 94
--- NOTE | 2023-05-18 20:07 | ED_ITS ---
HPI - General Adult General Chief complaint: General Medical Stated complaint: WEAKNESS ABD PAIN Time Seen by Provider: 05/18/23 19:54 Source: patient and EMS Mode of arrival: EMS Limitations: no limitations History of Present Illness HPI narrative: 27 yo male with a history of end-stage renal disease on hemodialysis Saturday and Saturday, ADHD, depression, hypertension, chronic abdominal pain/leg pain, sleep apnea with multiple admissions for abdominal pain, hypertensive urgency, peritonitis (related to PD now on HD), syncopal episodes presents to the ER with complaints of generalized abdominal pain, nausea, bilateral lower leg pain since yesterday unrelieved with home Tylenol and gabapentin. Today while walking felt dizzy w/ palpitations. No syncope. No chest pain, shortness of breath, cough, fever, vomiting, diarrhea, constipation. Patient makes little urine output Related Data Home Medications Medication Instructions Recorded Confirmed acetaminophen 500 mg tablet 1,000 mg PO TID PRN pain 03/13/23 04/29/23 alprazolam 0.5 mg tablet 0.5 mg PO BID PRN anxiety 03/13/23 04/29/23 atorvastatin 20 mg tablet 20 mg PO BEDTIME 03/13/23 04/29/23 calcitriol 0.5 mcg capsule 0.5 mcg PO MOWEFR@1645 03/13/23 04/29/23 calcium carbonate 500 mg calcium 500 mg PO DAILY PRN Acid Reflux 03/13/23 04/29/23 (1,250 mg) chewable tablet carvedilol 25 mg tablet 25 mg PO BID 03/13/23 04/29/23 cinacalcet 90 mg tablet 90 mg PO MOWEFR@1645 03/13/23 04/29/23 clonidine 0.3 mg/24 hr weekly 1 patch topical SA@0900 03/13/23 04/29/23 transdermal patch clonidine HCl 0.2 mg tablet 0.2 mg PO DAILY PRN Blood Pressure 03/13/23 04/29/23 ergocalciferol (vitamin D2) 1,250 1,250 mcg PO FR 03/13/23 04/29/23 mcg (50,000 unit) capsule (Vitamin D2) gabapentin 100 mg capsule 200 mg PO BID 03/13/23 04/29/23 hydrocortisone 0.5 % topical cream 1 appl topical DAILY PRN Rash 03/13/23 04/29/23 ketoconazole 2 % topical cream 1 appl topical DAILY PRN Rash 03/13/23 04/29/23 lactulose 10 gram/15 mL oral 15 ml PO DAILY PRN Constipation 03/13/23 04/29/23 solution losartan 100 mg tablet 100 mg PO DAILY 03/13/23 04/29/23 nifedipine 60 mg tablet,extended 120 mg PO DAILY 03/13/23 04/29/23 release nitroglycerin 0.4 mg sublingual 0.4 mg sublingual Q5M PRN Chest 03/13/23 04/29/23 tablet Pain ondansetron HCl 4 mg tablet 4 mg PO Q8H PRN Nausea 03/13/23 04/29/23 polyethylene glycol 3350 17 17 g PO DAILY PRN Constipation 03/13/23 04/29/23 gram/dose oral powder sennosides 8.6 mg-docusate sodium 2 tab PO BID 03/13/23 04/29/23 50 mg tablet (Senna Plus) sertraline 50 mg tablet 50 mg PO DAILY 03/13/23 04/29/23 sevelamer carbonate 800 mg tablet 2,400 mg PO TIDWMEAL 03/13/23 04/29/23 levetiracetam 500 mg tablet 1,000 mg PO BID 03/22/23 04/29/23 vitamin B complex and vitamin C 1 cap PO DAILY 04/19/23 04/29/23 no.20-folic acid 1 mg capsule (Renal Caps) Previous Rx's Medication Instructions Recorded hydralazine 50 mg tablet 50 mg PO TID #90 tabs 03/24/23 Allergies Allergy/AdvReac Type Severity Reaction Status Date / Time ceftriaxone AdvReac Nausea and Verified 04/29/23 14:40 Vomiting lorazepam [From Ativan] AdvReac Shakiness Verified 04/29/23 14:40 metoclopramide [From Reglan] AdvReac Nausea Verified 04/29/23 14:40 Review of Systems Review of Systems: Yes all other systems are reviewed and are negative Constitutional: Constitutional: Reports no additional constitutional complaints, Denies body ache(s), Denies chills, Denies fever(s), Denies headache(s) and Denies weakness Eyes: Eyes: Reports no additional eye complaints and Denies change in vision ENT: Reports system reviewed and no additional complaints, except as documented, Reports dizziness, Denies headache(s), Denies nasal congestion, Denies nasal discharge and Denies neck pain Cardiovascular: Cardiovascular: Reports no additional cardiovascular complaints, Denies chest pain, Denies leg edema and Denies dyspnea Respiratory: Respiratory: Reports no additional respiratory complaints, Denies cough and Denies dyspnea Gastrointestinal: Gastrointestinal: Reports no additional gastrointestinal complaints, Reports abdominal pain, Denies diarrhea, Reports nausea and Denies vomiting Genitourinary: Genitourinary: Denies urinary incontinence Musculoskeletal: Musculoskeletal: Reports no additional musculoskeletal complaints, Denies back pain, Denies arthralgias, Denies joint swelling, Denies neck pain, Denies numbness and Denies tingling Integumentary/Breasts: Skin/Breast: Reports system reviewed and no additional complaints, except as docu and Denies rash Neurologic: Reports system reviewed and no additional complaints, except as documented, Reports dizziness, Denies headache(s), Denies numbness, Denies tingling and Denies weakness PMFSH Past Medical History Attestation statement: The following information was validated with the patient. Source: old records reviewed and nursing notes reviewed Medical History Anemia Back pain Bilateral lower extremity pain CKD (chronic kidney disease) End stage chronic kidney disease ESRD on dialysis HTN (hypertension) Normocytic anemia Seizure disorder Syncope Family History Family History Sister Substance use disorder Social History Social History Household Members: Family Household Members Other:: mom, step dad, sister and nephew Housing: House Do you presently have visiting nurse or other home services: No Alcohol intake: never Patient Tobacco Use Status: Never used Tobacco Smoked in Last 30 Days: No e-Cigarette/Vaping Use: Never Used Use of substances other than those prescribed or required for medical reasons: No Substance Use Type: Marijuana Advance Directives: No Advance Directives Information Provided: Yes service: No Cognitive needs: No Hearing needs: No Vision needs: No Physical Exam ED Vital Signs: Vital Signs - 24 hr 05/18/23 19:44 05/18/23 20:13 05/18/23 21:29 Temperature 98.0 F 98 F Pulse Rate 106 H 93 95 Respiratory Rate 16 15 12 Blood Pressure 134/110 H 148/112 H 143/99 H Pulse Oximetry 98 98 97 Oxygen Delivery Method Room Air Room Air Room Air 05/18/23 20:06 05/18/23 23:15 05/18/23 23:15 Temperature Pulse Rate 94 101 H 112 H Respiratory Rate Blood Pressure 147/103 H 136/103 H 134/85 Pulse Oximetry Oxygen Delivery Method BMI result Body Mass Index 29.7 Const General: cooperative, healthy appearing, comfortable and no acute distress Orientation/consciousness: patient oriented x3 Limitations: no limitations HENMT Head: Yes normal to inspection Ears: hearing grossly normal bilaterally and TM's normal bilaterally General nose exam: Normal external nose present Face and sinus: Yes normal facial exam Mouth: Normal oral and palatal mucosa present Throat: Yes posterior oropharynx normal, Yes tonsils normal and Yes uvula midline Eyes General: appearance normal, both eyes and all related structures Pupils: Equal, round and reactive pupils present Neck Neck: Yes normal visual inspection, Yes full ROM and Yes no lymphadenopathy Chest Chest palpation & inspection: normal inspection of the chest Resp Effort & Inspection: normal respiratory effort Auscultation: clear to auscultation bilaterally Cardio Rate: regular rate Rhythm: regular rhythm Peripheral pulses: Peripheral pulses 2+ throughout GI Inspection: Yes normal to inspection Palpation (GI): Soft to palpation and nontender General: Yes no CVA tenderness Back/Spine/Pelvis Back: no CVA tenderness Thoracic/Lumbar Spine: thoracic and lumbar spine normal to inspection Skin General skin exam: no rashes or lesions noted Neuro General: patient oriented x3 and moves all extremities Cranial nerves: Yes CN's II-XII intact bilaterally, Yes Equal, round and reactive pupils present, Yes Bilaterally intact EOM present, Yes Nystagmus not present, Yes Normal facial strength present and Yes Midline tongue present Cognition (Neuro): normal cognition Motor exam (neuro): 5/5 motor strength present throughout Sensory Exam: Normal double simultaneous stimulation for sensation Extrem General: Yes normal to inspection and Yes no pedal edema Course Course Course Narrative: 2330-Orthos +. Patient is symptomatic. Will give 500ml only of NS. Second troponin flat so low concern for ACS. CT A/P shows no acute finding. Abdominal pain/leg pain seems chronic for patient and he takes tylenol/gabapentin at home for this. He can f/u with his PCP in regards to this. His dizziness is likely secondary to orthostasis and I have low concern for ACS, cerebellar infact/cva/ich, anemia, electrolyte abnormality. Plan for discharge home post fluids. reviewed worrisome signs./symptoms and when to seek additional care. comfortable with discharge home Medications Administered Discontinued Medications Generic Name Dose Route Start Last Admin Trade Name Ruth Ann PRN Reason Stop Dose Admin Acetaminophen 975 mg 05/18/23 22:15 05/18/23 22:27 Acetaminophen 325 Mg Tablet PO 05/18/23 22:16 975 mg ONCE ONE Administration Sodium Chloride 500 mls @ 999 mls/hr 05/18/23 23:30 05/19/23 00:08 Ns IV 05/19/23 00:00 Infused .Q31M STA Infusion Morphine Sulfate 2 mg 05/18/23 20:06 05/18/23 20:48 Morphine Sulfate 2 Mg/Ml Cartridge IVPUSH 05/18/23 20:07 2 mg ONCE ONE Administration Protocol Ondansetron HCl 4 mg 05/18/23 20:06 05/18/23 20:48 Ondansetron Hcl 4 Mg/2 Ml Vial IVPUSH 05/18/23 20:07 4 mg ONCE ONE Administration Medical Decision Making Medical Decision Making MDM Narrative: 27 yo male with a history of end-stage renal disease on hemodialysis Saturday and Saturday, ADHD, depression, hypertension, chronic abdominal pain/leg pain, sleep apnea with multiple admissions for abdominal pain, hypertensive urgency, peritonitis (related to PD now on HD), syncopal episodes presents to the ER with complaints of generalized abdominal pain, nausea, bilateral lower leg pain since yesterday unrelieved with home Tylenol and gabapentin.? Today while walking felt dizzy w/ palpitations.? No syncope.? No chest pain, shortness of breath, cough, fever, vomiting, diarrhea, constipation. Patient makes little urine output. On arrival patient is alert oriented. Patient has no focal abdominal pain, rebound or guarding. His abdomen is soft nondistended. His lungs are clear. Her vitals are stable. He has a normal neurological exam. Will check labs, orthostatics, EKG, covid/flu testing Differential Diagnosis Differential Diagnoses: The differential diagnosis associated with the presentation includes Chronic abdominal and leg pain, near syncope, orthostatic hypotension, electrolyte abnormality, ACS, arrhythmia Low concern for PE-perc o Admission/Observation Consideration of admission/observation: Escalation of care including admission/observation considered see discussion in course of care Lab Data MDM Lab Attestation statement: I reviewed the patient's lab results. CKD 05/18/23 20:30 05/18/23 20:30 Labs: Lab Results 05/18/23 05/18/23 05/18/23 Range/Units 20:30 20:30 20:30 WBC 7.0 (4.8-10.8) X10*3/uL RBC 4.38 L D (4.60-5.80) X10*6/uL Hgb 14.0 D (14.0-18.0) g/dl Hct 40.4 L D (42.0-52.0) % MCV 92.2 (80.0-98.0) fL MCH 32.0 (27.0-33.0) pg MCHC 34.7 (31.0-36.0) g/dl RDW 15.9 (11.0-16.0) % Plt Count 146 L (160-400) X10*3/uL MPV 9.2 L (9.4-12.4) fL Immature Gran % (Auto) 0.4 (0.0-0.4) % Neut % (Auto) 64.7 (45-73) % Lymph % (Auto) 17.9 L (20-40) % Montgomery % (Auto) 13.0 H (2-11) % Eos % (Auto) 3.1 (0-4) % Baso % (Auto) 0.9 (0-2) % Lymph # (Auto) 1.3 (1.2-4.9) X10*3/uL Montgomery # (Auto) 0.9 (0.1-1.2) X10*3/uL Eos # (Auto) 0.2 (0.0-0.4) X10*3/uL Baso # (Auto) 0.1 (0.0-0.2) X10*3/uL Abs Immat Gran (auto) 0.03 (0.00-0.03) X10*3/uL Absolute Neuts (auto) 4.5 (2.0-8.3) x10*3/uL Absolute Nucleated RBC 0.000 (0.0-0.012) X10*3/uL Nucleated RBC % (auto) 0.0 (0.0-0.2) /100WBC Sodium 132 L (135-145) mmol/L Potassium 3.6 (3.3-5.1) mmol/L Chloride 98 (96-108) mmol/L Carbon Dioxide 19 L (22-29) mmol/L Anion Gap 19 (12-20) BUN 22 H (9-16) mg/dL Creatinine 9.19 H* (0.5-1.4) mg/dL Estim Creat Clear Calc 14.6 Estimated GFR 7 Random Glucose 87 (60-115) mg/dL Calcium 11.5 H D (8.4-10.2) mg/dL Magnesium 1.9 (1.6-2.6) mg/dL Total Bilirubin 0.6 (0.0-1.0) mg/dL Direct Bilirubin 0.2 (0.0-0.5) mg/dL AST 12 (5-37) U/L ALT 6 (0-40) U/L Alkaline Phosphatase 64 (39-117) U/L Troponin I High Sens (<3.5-35.0) ng/L Total Protein 7.1 (6.5-8.0) g/dL Albumin 4.6 (3.5-5.0) g/dL Lipase 18 (8-78) U/L COVID-19 (ENOCH) (Negative) COVID-19 Clin Com Influenza Type A (DEBORAH) (Negative) Influenza Type B (DEBORAH) (Negative) Influenza A & B Note 05/18/23 05/18/23 05/18/23 Range/Units 20:30 20:30 20:30 WBC (4.8-10.8) X10*3/uL RBC (4.60-5.80) X10*6/uL Hgb (14.0-18.0) g/dl Hct (42.0-52.0) % MCV (80.0-98.0) fL MCH (27.0-33.0) pg MCHC (31.0-36.0) g/dl RDW (11.0-16.0) % Plt Count (160-400) X10*3/uL MPV (9.4-12.4) fL Immature Gran % (Auto) (0.0-0.4) % Neut % (Auto) (45-73) % Lymph % (Auto) (20-40) % Montgomery % (Auto) (2-11) % Eos % (Auto) (0-4) % Baso % (Auto) (0-2) % Lymph # (Auto) (1.2-4.9) X10*3/uL Montgomery # (Auto) (0.1-1.2) X10*3/uL Eos # (Auto) (0.0-0.4) X10*3/uL Baso # (Auto) (0.0-0.2) X10*3/uL Abs Immat Gran (auto) (0.00-0.03) X10*3/uL Absolute Neuts (auto) (2.0-8.3) x10*3/uL Absolute Nucleated RBC (0.0-0.012) X10*3/uL Nucleated RBC % (auto) (0.0-0.2) /100WBC Sodium (135-145) mmol/L Potassium (3.3-5.1) mmol/L Chloride (96-108) mmol/L Carbon Dioxide (22-29) mmol/L Anion Gap (12-20) BUN (9-16) mg/dL Creatinine (0.5-1.4) mg/dL Estim Creat Clear Calc Estimated GFR Random Glucose (60-115) mg/dL Calcium (8.4-10.2) mg/dL Magnesium (1.6-2.6) mg/dL Total Bilirubin (0.0-1.0) mg/dL Direct Bilirubin (0.0-0.5) mg/dL AST (5-37) U/L ALT (0-40) U/L Alkaline Phosphatase (39-117) U/L Troponin I High Sens 35.9 H D (<3.5-35.0) ng/L Total Protein (6.5-8.0) g/dL Albumin (3.5-5.0) g/dL Lipase (8-78) U/L COVID-19 (ENOCH) Negative (Negative) COVID-19 Clin Com See Note Influenza Type A (DEBORAH) Negative (Negative) Influenza Type B (DEBORAH) Negative (Negative) Influenza A & B Note See Note 05/18/23 Range/Units 23:13 WBC (4.8-10.8) X10*3/uL RBC (4.60-5.80) X10*6/uL Hgb (14.0-18.0) g/dl Hct (42.0-52.0) % MCV (80.0-98.0) fL MCH (27.0-33.0) pg MCHC (31.0-36.0) g/dl RDW (11.0-16.0) % Plt Count (160-400) X10*3/uL MPV (9.4-12.4) fL Immature Gran % (Auto) (0.0-0.4) % Neut % (Auto) (45-73) % Lymph % (Auto) (20-40) % Montgomery % (Auto) (2-11) % Eos % (Auto) (0-4) % Baso % (Auto) (0-2) % Lymph # (Auto) (1.2-4.9) X10*3/uL Montgomery # (Auto) (0.1-1.2) X10*3/uL Eos # (Auto) (0.0-0.4) X10*3/uL Baso # (Auto) (0.0-0.2) X10*3/uL Abs Immat Gran (auto) (0.00-0.03) X10*3/uL Absolute Neuts (auto) (2.0-8.3) x10*3/uL Absolute Nucleated RBC (0.0-0.012) X10*3/uL Nucleated RBC % (auto) (0.0-0.2) /100WBC Sodium (135-145) mmol/L Potassium (3.3-5.1) mmol/L Chloride (96-108) mmol/L Carbon Dioxide (22-29) mmol/L Anion Gap (12-20) BUN (9-16) mg/dL Creatinine (0.5-1.4) mg/dL Estim Creat Clear Calc Estimated GFR Random Glucose (60-115) mg/dL Calcium (8.4-10.2) mg/dL Magnesium (1.6-2.6) mg/dL Total Bilirubin (0.0-1.0) mg/dL Direct Bilirubin (0.0-0.5) mg/dL AST (5-37) U/L ALT (0-40) U/L Alkaline Phosphatase (39-117) U/L Troponin I High Sens 31.5 (<3.5-35.0) ng/L Total Protein (6.5-8.0) g/dL Albumin (3.5-5.0) g/dL Lipase (8-78) U/L COVID-19 ([facility]CH) (Negative) COVID-19 Clin Com Influenza Type A (DEBORAH) (Negative) Influenza Type B (DEBORAH) (Negative) Influenza A & B Note Independent Interpretation I performed an independent interpretation of an: EKG, Plain X-Ray and CT Scan Interpretation: I independently reviewed the chest x-ray and the CT scan of the abdomen and pelvis and agree with radiology's report Independently viewed EKG which shows normal sinus rhythm with a rate 86, normal TN, normal QRS, normal QT Radiology Impression Discussion of test interpretation with radiology: I have reviewed the radiologist's reading. Radiologist Impression: [place] [id number] CT Scan Report Signed Patient: Gary Burns MR#: [id number] : 1995 Acct:[id number] Age/Sex: 27 / M ADM Date: 05/18/23 Loc: .ED Attending Dr: Ordering Physician: Barb Read NP Date of Service: 05/18/23 Procedure(s): CT abdomen pelvis wo IV con Accession Number(s): [id number] cc: Barb Read NP~ EXAMINATION: CT ABDOMEN AND PELVIS WITHOUT CONTRAST? CLINICAL INFORMATION: Abdominal pain? COMPARISON: 04/19/2023 TECHNIQUE: Multidetector volumetric imaging was performed from the superior aspect of the liver through the pubic symphysis. Sagittal and coronal reformatted images were obtained on the technologist's workstation.? This CT examination was performed using dose optimization techniques as appropriate, variously including the following: *Automated exposure control *Adjustment of mA and/or kV according to patient size (this includes techniques or standardized protocols for targeted exams where dose is matched to indication/reason for exam; i.e. extremities or head) *Use of iterative reconstruction technique DLP: 629 mGy-cm FINDINGS: LUNG BASES: The visualized lung bases are unremarkable.? LIVER, GALLBLADDER, AND BILIARY TREE: The liver is normal in size, shape, and attenuation. No focal hepatic lesion or biliary ductal dilatation is present. Gallstone without acute inflammatory changes.? PANCREAS: Unremarkable.? SPLEEN: Unremarkable.? ADRENAL GLANDS: Unremarkable.? KIDNEYS AND URETERS: The kidneys are normal in size, shape, and attenuation. No hydronephrosis, hydroureter, or calculi seen. No perinephric stranding. ? BLADDER: Unremarkable.? GASTROINTESTINAL TRACT: The small and large bowel are unremarkable. The appendix is unremarkable. Free fluid has resolved. Peritoneal dialysis catheter remains in place. No fluid collection. ABDOMINAL WALL: No significant hernia is appreciated.? LYMPH NODES: Normal. VASCULAR: Unremarkable. PELVIC VISCERA: Unremarkable.? OSSEOUS STRUCTURES: Unremarkable.? CT/CT abdomen pelvis wo IV con IMPRESSION: No focal abnormality to explain patient's symptoms. Incidental gallstones. ? Fleischner guidelines were followed. [place] [id number] XRay Report Signed Patient: Gary Burns MR#: [id number] : 1995 Acct:[id number] Age/Sex: 27 / M ADM Date: 05/18/23 Loc: .ED Attending Dr: Ordering Physician: Barb Read NP Date of Service: 05/18/23 Procedure(s): XR chest 2V Accession Number(s): [id number] cc: Barb Read NP~ EXAMINATION: XR CHEST CLINICAL INFORMATION: Syncope COMPARISON: None available. TECHNIQUE: 2 views of the chest were obtained. FINDINGS: Bilateral central lines in place. No significant abnormality is noted involving the heart, lungs, mediastinum, bony thorax or soft tissues. XR/XR chest 2V IMPRESSION: No active chest disease. No pneumothorax Independent Historian Clinical information obtained from an independent historian. History obtained from or confirmed by: EMS External Record Review External record reviewed: Inpatient record and Outpatient record I reviewed the previous admissions of the patient has had to this facility for symptomatic anemia with syncope. He has also been admitted to [facility] multiple times for chronic abdominal pain secondary to peritonitis when the patient was on peritoneal dialysis, syncope Patient has had extensive workups for his syncopal episodes including evaluation by hand in Cardiology with outpatient follow-up and loop recorder, workup by Neurology for possible breakthrough seizures with negative workup. His previous syncopal episodes have been thought to be secondary to orthostatic hypotension and on 1 occasion anemia Discharge Plan Discharge Clinical Impression: Orthostatic hypotension Patient Disposition: Home, Self-Care Instructions: Dizziness (ED) Additional Instructions: Your blood pressure and heart rate did change with position changes and so you received some IV fluids will your in the emergency room Your CT scan of your abdomen and pelvis did not show any acute finding Your lab work looks to be at baseline for you. Your EKG and heart levels are okay Please follow-up with her primary care doctor in regards to your chronic abdominal and leg pain. Continue your home medications Prescriptions: No Action carvedilol 25 mg tablet 25 mg PO BID atorvastatin 20 mg tablet 20 mg PO BEDTIME ondansetron HCl 4 mg tablet 4 mg PO Q8H PRN (Reason: Nausea) sennosides-docusate sodium [Senna Plus] 8.6-50 mg tablet 2 tab PO BID acetaminophen 500 mg tablet 1,000 mg PO TID PRN (Reason: pain) alprazolam 0.5 mg tablet 0.5 mg PO BID PRN (Reason: anxiety) clonidine HCl 0.2 mg tablet 0.2 mg PO DAILY PRN (Reason: Blood Pressure) nitroglycerin 0.4 mg tablet, sublingual 0.4 mg sublingual Q5M PRN (Reason: Chest Pain) calcium carbonate 500 mg calcium (1,250 mg) Tablet,Chewable 500 mg PO DAILY PRN (Reason: Acid Reflux) clonidine 0.3 mg/24 hr patch weekly 1 patch topical SA@0900 gabapentin 100 mg capsule 200 mg PO BID polyethylene glycol 3350 17 gram/dose powder 17 g PO DAILY PRN (Reason: Constipation) nifedipine 60 mg tablet extended release 120 mg PO DAILY losartan 100 mg tablet 100 mg PO DAILY sertraline 50 mg tablet 50 mg PO DAILY cinacalcet 90 mg Tablet 90 mg PO MOWEFR@1645 Rx Instructions: only on dialysis days lactulose 10 gram/15 mL solution 15 ml PO DAILY PRN (Reason: Constipation) sevelamer carbonate 800 mg tablet 2,400 mg PO TIDWMEAL hydrocortisone 0.5 % Cream 1 appl TOPICAL DAILY PRN (Reason: Rash) Rx Instructions: face calcitriol 0.5 mcg Capsule 0.5 mcg PO MOWEFR@1645 Rx Instructions: administer after dialysis on dialysis days ergocalciferol (vitamin D2) [Vitamin D2] 1,250 mcg (50,000 unit) Capsule 1,250 mcg PO FR ketoconazole 2 % Cream 1 appl TOPICAL DAILY PRN (Reason: Rash) Rx Instructions: face levetiracetam 500 mg tablet 1,000 mg PO BID hydralazine 50 mg Tablet 50 mg PO TID Qty: 90 0RF Protocol: Hold for SBP< HOLD for SBP < : 90 Renal Caps 1 mg capsule 1 cap PO DAILY Referrals: Physician,Unknown J [Primary Care Provider] - 1 week Interventions: ED Discharge Assessment Last Done: 05/19/23 00:41 Discharge Date/Time: 05/19/23 00:42
[2023-05-18 20:13] VITALS: BP 148/112; PULSE 93; RESP 15; TEMP 36.6; O2SAT 98
[2023-05-18 20:47] LABS: MANUAL DIFF FLAG NO
[2023-05-18] MEDS: ondansetron HCL 4 MG/2 ML VIAL IVPUSH (20:48)
[2023-05-18] MEDS: Morphine Sulfate 2 MG/ML CARTRIDGE IVPUSH (20:48)
[2023-05-18 20:51] LABS: Basophils Absolute Auto 0.1 X10*3/uL (0.0-0.2); Basophils Percent Auto 0.9 % (0-2); Eosinophils Absolute Auto 0.2 X10*3/uL (0.0-0.4); Eosinophils Percent Auto 3.1 % (0-4); Hematocrit 40.4 % (42.0-52.0); Imm Gran Abs Auto 0.03 X10*3/uL (0.00-0.03); Imm Gran Pct Auto 0.4 % (0.0-0.4); Lymphocytes Absolute Auto 1.3 X10*3/uL (1.2-4.9); Lymphocytes Percent Auto 17.9 % (20-40); Mean Corpuscular HGB Conc 34.7 g/dl (31.0-36.0); Mean Corpuscular Volume 92.2 fL (80.0-98.0); Mean Platelet Volume 9.2 fL (9.4-12.4); Monocytes Absolute Auto 0.9 X10*3/uL (0.1-1.2); Neutrophils Absolute Auto 4.5 x10*3/uL (2.0-8.3); Neutrophils Percent Auto 64.7 % (45-73); Platelet Count 146 X10*3/uL (160-400); Red Blood Count 4.38 X10*6/uL (4.60-5.80); Red Cell Distribution Width 15.9 % (11.0-16.0)
--- NOTE | 2023-05-18 20:58 | PC.NURSE ---
this RN accessed pts port, pt confirmed that port was a power port as he has received IV contrast through it many times. Blood work obtained through port as well. Pt offers no complaints to this RN at this time. resting on stretcher, respirations even and unlabored, skin pwd, alert and oriented x4.
[2023-05-18 21:01] LABS: Magnesium 1.9 mg/dL (1.6-2.6)
[2023-05-18 21:06] LABS: COVID-19 Test Negative (Negative); IDNOW Serial# 08D9AD1C
[2023-05-18 21:07] LABS: IDNOW Serial# BCCEAD1C; Influenza A Negative (Negative); Influenza B2 Negative (Negative)
[2023-05-18 21:10] LABS: Troponin-I High Sensitivity 35.9 ng/L (<3.5-35.0)
[2023-05-18 21:12] LABS: Alanine Aminotransferase 6 U/L (0-40); Albumin Level 4.6 g/dL (3.5-5.0); Alkaline Phosphatase 64 U/L (39-117); Anion Gap 19 (12-20); Aspartate Amino Transferase 12 U/L (5-37); Bilirubin Direct 0.2 mg/dL (0.0-0.5); Bilirubin Total 0.6 mg/dL (0.0-1.0); Blood Urea Nitrogen 22 mg/dL (9-16); Calcium 11.5 mg/dL (8.4-10.2); Carbon Dioxide 19 mmol/L (22-29); Chloride 98 mmol/L (96-108); Creatinine Clr Calc Pharmacy 14.6; Estimated Glomerular Filt Rate 7; Glucose Random 87 mg/dL (60-115); Lipase 18 U/L (8-78); Potassium 3.6 mmol/L (3.3-5.1); Sodium 132 mmol/L (135-145); Total Protein 7.1 g/dL (6.5-8.0)
[2023-05-18 21:29] VITALS: BP 143/99; PULSE 95; RESP 12; O2SAT 97
[2023-05-18] MEDS: Acetaminophen 325 MG TABLET 975 MG PO (22:27)
[2023-05-18 23:15] VITALS: BP 134/85; BP 136/103; PULSE 101; PULSE 112
[2023-05-18] MEDS: 0.9 % Sodium Chloride 500 ML 999 ML IV (23:34)
[2023-05-18 23:43] LABS: Troponin-I High Sensitivity 31.5 ng/L (<3.5-35.0)
== END 2023-05-19 00:42 | disposition home or self-care (01) ==
PROVIDERS: Nurse Practitioner Family; Emergency Provider Emergency Medicine
DX: I95.1 Orthostatic hypotension (principal); R10.9 Unspecified abdominal pain; Z20.822 Contact with and (suspected) exposure to COVID-19; I12.0 Hypertensive chronic kidney disease with stage 5 chronic kidney disease or end stage renal disease; N18.6 End stage renal disease; Z99.2 Dependence on renal dialysis; D64.9 Anemia, unspecified; Z79.899 Other long term (current) drug therapy
CPT/HCPCS: 36415; 71046; 74176; 80053; 82248; 83690; 83735; 84484; 85025; 87502; 87635; 93005; 96361; 96374; 96375; 99284; 99285; J2270; J2405

== ENCOUNTER 2023-06-14 12:11 | Observation (INO) | payer OTHER, SELFPAY ==
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
[2023-06-14 12:16] VITALS: BP 152/116; PULSE 100; RESP 18; TEMP 36.7; O2SAT 99; BMI 29.2
[2023-06-14 12:30] VITALS: BP 169/123; PULSE 102; O2SAT 99
--- NOTE | 2023-06-14 14:17 | ECG_ITS ---
Test Reason : HTN Blood Pressure : / mmHG Vent. Rate : 097 BPM Atrial Rate : 097 BPM P-R Int : 212 ms QRS Dur : 076 ms QT Int : 310 ms P-R-T Axes : 043 023 056 degrees QTc Int : 393 ms Sinus rhythm with 1st degree A-V block Possible Acute pericarditis Abnormal ECG When compared with ECG of 18-MAY-2023 20:10, No significant change was found Referred By: Generic ED Physician Electronically Signed By:HUGH STARR
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
[2023-06-14 15:16] LABS: Anion Gap 20 (12-20)
[2023-06-14] MEDS: Acetaminophen 325 MG TABLET 975 MG PO (16:25)
[2023-06-14 16:32] LABS: Basophils Percent Auto 0.3 % (0-2); Eosinophils Absolute Auto 0.1 X10*3/uL (0.0-0.4); Eosinophils Percent Auto 1.6 % (0-4); Hematocrit 26.9 % (42.0-52.0); Hemoglobin 9.1 g/dl (14.0-18.0); Imm Gran Abs Auto 0.03 X10*3/uL (0.00-0.03); Imm Gran Pct Auto 0.5 % (0.0-0.4); Lymphocytes Absolute Auto 0.7 X10*3/uL (1.2-4.9); Lymphocytes Percent Auto 10.5 % (20-40); Mean Corpuscular HGB Conc 33.8 g/dl (31.0-36.0); Mean Corpuscular Hemoglobin 31.6 pg (27.0-33.0); Mean Corpuscular Volume 93.4 fL (80.0-98.0); Mean Platelet Volume 9.3 fL (9.4-12.4); Monocytes Absolute Auto 0.9 X10*3/uL (0.1-1.2); Monocytes Percent Auto 13.8 % (2-11); Neutrophils Absolute Auto 4.7 x10*3/uL (2.0-8.3); Neutrophils Percent Auto 73.3 % (45-73); Platelet Count 137 X10*3/uL (160-400); Red Blood Count 2.88 X10*6/uL (4.60-5.80); Red Cell Distribution Width 12.6 % (11.0-16.0); White Blood Count 6.4 X10*3/uL (4.8-10.8)
[2023-06-14 16:58] LABS: Blood Urea Nitrogen 37 mg/dL (9-16); Calcium 10.1 mg/dL (8.4-10.2); Carbon Dioxide 18 mmol/L (22-29); Chloride 106 mmol/L (96-108); Estimated Glomerular Filt Rate 6; Glucose Random 96 mg/dL (60-115); Potassium 5.3 mmol/L (3.3-5.1); Sodium 137 mmol/L (135-145)
--- NOTE | 2023-06-14 18:34 | PHA.MEDREC ---
Pharmacy Consult ? Medication Reconciliation Pharmacy has completed the medication reconciliation. Sridevi was able to recognize names of medications. Reported calcitriol was recently stopped. Brenda Mendez, PharmD
--- NOTE | 2023-06-14 19:05 | P.HPHOSP_ITS ---
History of Present Illness Date of Service: 06/14/23 Chief Complaint: Hyperkalemia 27-year-old male with known history of end-stage renal disease on dialysis apparently had a syncopal episode at dialysis necessitating transfer to [facility]. Of note patient has had multiple syncopal episodes prior to dialysis which he describes as orthostatic in nature; never able to duplicate Ortho status while inpatient. In the ER noted to have potassium of 5.3 and a creatinine of greater than 11. He will be admitted for urgent dialysis in a.m. Review of Systems 2 Review of Systems: Denies chest pain Denies shortness of breath Denies nausea vomiting diarrhea Denies fever chills PMFSH Medical History Normocytic anemia CKD (chronic kidney disease) Syncope Anemia HTN (hypertension) Seizure disorder ESRD on dialysis End stage chronic kidney disease Bilateral lower extremity pain Back pain Family History Sister Substance use disorder Social History Household Members: Family Household Members Other:: mom, step dad, sister and nephew Housing: House Do you presently have visiting nurse or other home services: No Alcohol intake: never Patient Tobacco Use Status: Never used Tobacco Smoked in Last 30 Days: No e-Cigarette/Vaping Use: Never Used Use of substances other than those prescribed or required for medical reasons: Yes Substance Use Type: Marijuana Substance Use Frequency: Daily Last Used Substance Other:: prior to bed Currently Displaying Signs/Symptoms of Drug Intoxication Withdrawal: No Have you been hit, kicked, punched, or otherwise hurt by someone within the past year? If so, by whom?: No Do you feel safe in your current relationship?: Yes Is there a partner from a previous relationship who is making you feel unsafe now?: No Are you made to feel afraid or neglected: No Advance Directives: No Advance Directives Information Provided: Yes Do you have thoughts of harming others: None Do you have a plan to hurt others: No Plan Recently lost weight without trying: No Nutrition Risks: No Nutritional Risk Poor oral hygiene: No service: No Cognitive needs: No Hearing needs: No Vision needs: No Meds Allergies Allergy/AdvReac Type Severity Reaction Status Date / Time ceftriaxone AdvReac Nausea and Verified 04/29/23 14:40 Vomiting lorazepam [From Ativan] AdvReac Shakiness Verified 04/29/23 14:40 metoclopramide [From Reglan] AdvReac Nausea Verified 04/29/23 14:40 Active Medications: Current Medications Acetaminophen (Acetaminophen 325 Mg Tablet) 650 mg PO Q6H PRN PRN Reason: Pain, Mild (Pain Scale 1-3) Alprazolam (Alprazolam 0.5 Mg Tablet) 0.5 mg PO BID PRN PRN Reason: anxiety Atorvastatin Calcium (Atorvastatin Calcium 20 Mg Tablet) 20 mg PO BEDTIME [facility]ZEL Carvedilol (Carvedilol 25 Mg Tablet) 25 mg PO BID DENZEL; Protocol Clonidine (Clonidine 0.3 Mg Patch.Tdwk) mg TRANSDERMA SA@0900 DENZEL; Protocol Ergocalciferol (Ergocalciferol (Vitamin D2) 1,250 Mcg Capsule) 1,250 mcg PO FR [facility]ZEL Gabapentin (Gabapentin 100 Mg Capsule) 100 mg PO BID [facility] Hydralazine HCl (Hydralazine Hcl 50 Mg Tablet) 50 mg PO TID DNEZEL; Protocol Lactulose (Lactulose 20 Gm/30 Ml Solution) 10 gm PO DAILY PRN PRN Reason: Constipation Levetiracetam (Levetiracetam 500 Mg Tablet) 500 mg PO BID [facility]ZEL Levetiracetam (Levetiracetam 500 Mg Tablet) 500 mg PO MOWEFR@1645 [facility] Losartan Potassium (Losartan Potassium 50 Mg Tablet) 100 mg PO DAILY [facility]; Protocol Multivitamins/Vitamin C (Multivitamin Tablet) 1 tab PO DAILY [facility] Nitroglycerin (Nitroglycerin 0.4 Mg Tab.Subl) 0.4 mg SUBLINGUAL Q5M PRN PRN Reason: Chest Pain Non-Formulary Medication (Calcium Carbonate) 500 mg PO DAILY PRN PRN Reason: Acid Reflux Non-Formulary Medication (Cholecalciferol (Vitamin D3)) 1,250 mcg PO FR [facility] Non-Formulary Medication (Nifedipine) 120 mg PO DAILY [facility] Ondansetron HCl (Ondansetron Hcl 4 Mg/2 Ml Vial) 4 mg IVPUSH Q8H PRN PRN Reason: Nausea and Vomiting Oxycodone HCl (Oxycodone Hcl Immed Release 5 Mg Tablet) 5 mg PO Q6H PRN PRN Reason: Pain, Severe (Pain Scale 7-10) Polyethylene Glycol (Polyethylene Glycol 3350 17 Gm Powd.Pack) 17 gm PO DAILY PRN PRN Reason: Constipation Senna/Docusate Sodium (Sennosides/Docusate Sodium Tablet) 2 tab PO BID [facility] Sertraline HCl (Sertraline Hcl 50 Mg Tablet) 50 mg PO DAILY [facility] Sevelamer Carbonate (Sevelamer Carbonate Tablet 800 Mg Tablet) 2,400 mg PO TIDWMEAL [facility] Sodium Chloride (0.9 % Sodium Chloride Flush 3 Ml Syringe) 3 ml IVFLUSH QSHIFT [facility] Home Medications Medication Instructions Recorded Confirmed Last Taken Type acetaminophen 500 mg tablet 1,000 mg PO TID PRN pain 03/13/23 06/14/23 Unknown History alprazolam 0.5 mg tablet 0.5 mg PO BID PRN anxiety 03/13/23 06/14/23 03/25/23 History atorvastatin 20 mg tablet 20 mg PO BEDTIME 03/13/23 06/14/23 06/13/23 History calcium carbonate 500 mg calcium 500 mg PO DAILY PRN Acid Reflux 03/13/23 06/14/23 03/25/23 History (1,250 mg) chewable tablet carvedilol 25 mg tablet 25 mg PO BID 03/13/23 06/14/23 06/14/23 History cinacalcet 90 mg tablet 90 mg PO MOWEFR@1645 03/13/23 06/14/23 06/12/23 History clonidine 0.3 mg/24 hr weekly 1 patch topical SA@0900 03/13/23 06/14/23 06/08/23 History transdermal patch gabapentin 100 mg capsule 100 mg PO BID 03/13/23 06/14/23 06/14/23 History hydrocortisone 0.5 % topical cream 1 appl topical DAILY PRN Rash 03/13/23 06/14/23 Unknown History ketoconazole 2 % topical cream 1 appl topical DAILY PRN Rash 03/13/23 06/14/23 Unknown History lactulose 10 gram/15 mL oral 15 ml PO DAILY PRN Constipation 03/13/23 06/14/23 Unknown History solution losartan 100 mg tablet 100 mg PO DAILY 03/13/23 06/14/23 06/14/23 History nifedipine 60 mg tablet,extended 120 mg PO DAILY 06/06/14/23 06/14/23 History release nitroglycerin 0.4 mg sublingual 0.4 mg sublingual Q5M PRN Chest 03/13/23 06/14/23 Unknown History tablet Pain ondansetron HCl 4 mg tablet 4 mg PO Q8H PRN Nausea 03/13/23 06/14/23 Unknown History polyethylene glycol 3350 17 17 g PO DAILY PRN Constipation 03/13/23 06/14/23 Unknown History gram/dose oral powder sennosides 8.6 mg-docusate sodium 2 tab PO BID 03/13/23 06/14/23 06/14/23 History 50 mg tablet (Senna Plus) sertraline 50 mg tablet 50 mg PO DAILY 03/13/23 06/14/23 06/14/23 History sevelamer carbonate 800 mg tablet 2,400 mg PO TIDWMEAL 03/13/23 06/14/23 06/14/23 History vitamin B complex and vitamin C 1 cap PO DAILY 04/19/23 06/14/23 06/14/23 History no.20-folic acid 1 mg capsule (Renal Caps) cholecalciferol (vitamin D3) 1,250 1,250 mcg PO FR 06/14/23 06/14/23 06/14/23 History mcg (50,000 unit) capsule levetiracetam 1,000 mg tablet 500 mg PO BID 06/14/23 06/14/23 06/14/23 History levetiracetam 500 mg tablet 500 mg PO MOWEFR@1645 06/14/23 06/14/23 06/12/23 History Physical Exam 2 Vital Signs and Narrative: Vital Signs: Last Vital Signs Temp 98.1 F 06/14/23 12:16 Pulse 100 06/14/23 12:16 Resp 18 06/14/23 12:16 BP 152/116 H 06/14/23 12:16 Pulse Ox 99 06/14/23 12:16 O2 Del Method Room Air 06/14/23 12:16 BMI result Body Mass Index 29.2 Const: Other: Awake alert no acute distress Resp: Other: Clear to auscultation bilaterally no rales rhonchi or wheezes Cardio: Other: No S4; positive S1-S2; no S3 murmurs rubs or gallops Neuro: Other: Cranial nerves 2-12 grossly intact as tested. Motor is 5/5 all extremities. Sensation is intact Extrem: Other: No edema bilaterally Results Labs 06/15/23 06:47 06/15/23 06:47 Labs: Laboratory Results - last 24 hr 06/14/23 16:24 MCV 93.4 MCH 31.6 MCHC 33.8 RDW 12.6 Plt Count 137 L MPV 9.3 L Immature Gran % (Auto) 0.5 H Neut % (Auto) 73.3 H Lymph % (Auto) 10.5 L [place] % (Auto) 13.8 H Eos % (Auto) 1.6 Baso % (Auto) 0.3 Lymph # (Auto) 0.7 L [place] # (Auto) 0.9 Eos # (Auto) 0.1 Baso # (Auto) 0.0 Abs Immat Gran (auto) 0.03 Absolute Neuts (auto) 4.7 Absolute Nucleated RBC 0.000 Nucleated RBC % (auto) 0.0 Anion Gap 20 Estim Creat Clear Calc 12.0 Estimated GFR 6 Random Glucose 96 Calcium 10.1 D Imaging Radiologist's Impressions: Impressions Lumbar Spine X-Ray 06/14/23 15:33 IMPRESSION: 1. No acute visible fracture or dislocation. 2. Slight grade 1 retrolisthesis of L3 on L4. Assessment and Plan (1) Acute hyperkalemia: Status: Acute (2) Syncope: Qualifiers: Syncope type: unspecified Qualified Code(s): R55 - Syncope and collapse Status: Acute Plan 27-year-old male with known history of end-stage renal disease on dialysis presents having a ?syncopal episodes at dialysis. Multiple similar presentations in the past. In emergency room found to be hyperkalemic with a creatinine of greater than 11. Given the fact that he had missed his dialysis he will be admitted overnight for dialysis in a.m. 1. End-stage renal disease on hemodialysis with subsequent hyperkalemia -patient will be admitted to the floor overnight with Renal consult in a.m. and subsequent hemodialysis. Given his multiple admissions for syncope without clear focus, no other workup will be initiated. -likely discharge in a.m. Full code Heparin Patient will require 1 midnight stay to necessitate urgent hemodialysis. This cannot be achieved in lesser acute setting Time Spent With Patient Time: Total time managing care of this patient today ____ minutes. Quality Stroke Does the patient have a stroke diagnosis?: No VTE Prior VTE?: No VTE Risk Level:: Medical - moderate - high VTE Device Contraindication: Treatment Not Indicated VTE Drug Contraindication: N/A - Med Ordered
[2023-06-14] MEDS: Sennosides/Docusate Sodium TABLET 2 TAB PO (20:09)
[2023-06-14] MEDS: hydrALAZINE HCl 50 MG TABLET PO (20:10)
[2023-06-14] MEDS: Gabapentin 100 MG CAPSULE PO (20:10)
[2023-06-14] MEDS: carvediloL 25 MG TABLET PO (20:10)
[2023-06-14] MEDS: levETIRAcetam 500 MG TABLET PO (20:10)
[2023-06-14] MEDS: oxyCODONE HCl Immed Release 5 MG TABLET PO (20:10)
[2023-06-14] MEDS: Atorvastatin Calcium 20 MG TABLET PO (20:10)
[2023-06-14 20:13] VITALS: BP 147/101; PULSE 104; RESP 18; TEMP 36.8; O2SAT 98
[2023-06-14 20:58] VITALS: BMI 29.0
[2023-06-14] MEDS: oxyCODONE HCl Immed Release 5 MG TABLET 10 MG PO (22:04)
[2023-06-14 23:59] VITALS: BP 157/95; PULSE 105; RESP 20; TEMP 36.9; O2SAT 97
[2023-06-15] MEDS: ALPRAZolam 0.5 MG TABLET PO (00:42)
[2023-06-15 03:44] VITALS: BP 139/84; PULSE 80; RESP 16; TEMP 37.2; O2SAT 98
[2023-06-15] MEDS: oxyCODONE HCl Immed Release 5 MG TABLET 10 MG PO ×3 (03:59→15:25)
[2023-06-15 06:18] VITALS: TEMP 36.7
[2023-06-15 07:10] LABS: MANUAL DIFF FLAG NO
[2023-06-15 07:15] LABS: Basophils Percent Auto 0.4 % (0-2); Eosinophils Absolute Auto 0.1 X10*3/uL (0.0-0.4); Eosinophils Percent Auto 2.5 % (0-4); Hematocrit 25.9 % (42.0-52.0); Hemoglobin 8.4 g/dl (14.0-18.0); Imm Gran Abs Auto 0.01 X10*3/uL (0.00-0.03); Imm Gran Pct Auto 0.2 % (0.0-0.4); Lymphocytes Absolute Auto 0.9 X10*3/uL (1.2-4.9); Lymphocytes Percent Auto 17.9 % (20-40); Mean Corpuscular HGB Conc 32.4 g/dl (31.0-36.0); Mean Corpuscular Hemoglobin 31.2 pg (27.0-33.0); Mean Corpuscular Volume 96.3 fL (80.0-98.0); Monocytes Absolute Auto 0.8 X10*3/uL (0.1-1.2); Monocytes Percent Auto 16.3 % (2-11); Neutrophils Absolute Auto 3.2 x10*3/uL (2.0-8.3); Neutrophils Percent Auto 62.7 % (45-73); Platelet Count 142 X10*3/uL (160-400); Red Blood Count 2.69 X10*6/uL (4.60-5.80); Red Cell Distribution Width 12.8 % (11.0-16.0); White Blood Count 5.2 X10*3/uL (4.8-10.8)
[2023-06-15 07:26] VITALS: BP 135/89; PULSE 96; RESP 20; TEMP 36.9; O2SAT 96
[2023-06-15 07:36] LABS: Alanine Aminotransferase 8 U/L (0-40); Albumin Level 3.4 g/dL (3.5-5.0); Alkaline Phosphatase 55 U/L (39-117); Anion Gap 20 (12-20); Aspartate Amino Transferase 9 U/L (5-37); Bilirubin Total 0.3 mg/dL (0.0-1.0); Blood Urea Nitrogen 44 mg/dL (9-16); Calcium 9.6 mg/dL (8.4-10.2); Carbon Dioxide 19 mmol/L (22-29); Chloride 105 mmol/L (96-108); Creatinine Clr Calc Pharmacy 10.6; Estimated Glomerular Filt Rate 5; Glucose Random 99 mg/dL (60-115); Potassium 5.2 mmol/L (3.3-5.1); Sodium 139 mmol/L (135-145); Total Protein 5.5 g/dL (6.5-8.0)
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
[2023-06-15] MEDS: hydrALAZINE HCl 50 MG TABLET PO ×2 (10:08→15:25)
[2023-06-15] MEDS: Sennosides/Docusate Sodium TABLET 2 TAB PO (10:08)
[2023-06-15] MEDS: Sertraline HCL 50 MG TABLET PO (10:08)
[2023-06-15] MEDS: carvediloL 25 MG TABLET PO (10:09)
[2023-06-15] MEDS: NIFEdipine ER 60 MG TAB.ER.24 120 MG PO (10:09)
[2023-06-15] MEDS: Multivitamin TABLET 1 TAB PO (10:09)
[2023-06-15] MEDS: levETIRAcetam 500 MG TABLET PO (10:10)
[2023-06-15] MEDS: Gabapentin 100 MG CAPSULE PO (10:10)
[2023-06-15] MEDS: cloNIDine 0.3 MG PATCH.TDWK TRANSDERMA (10:12)
[2023-06-15 12:02] VITALS: BP 133/103; PULSE 98; RESP 20; TEMP 36.7
--- NOTE | 2023-06-15 14:47 | P.DS_ITS ---
DS: Providers Provider Date of Service: 06/15/23 Date of admission: 06/14/23 18:40 Date of discharge: 06/15/23 Primary care physician: Unknown Physician DS: Diagnosis Discharge Diagnosis (1) Acute hyperkalemia: Status: Acute (2) Syncope: Status: Acute DS: Summary Hospital Course Hospital Course: 27-year-old male with known history of end-stage renal disease missed dialysis secondary to ?syncopal? episode. He has had multiple questionable syncopal episodes in past. In emergency room he was found to be hyperkalemic with a creatinine of 11. The decision was made to admit in dialyze in a.m.. He underwent dialysis this a.m. without issue. At this point time is medically acceptable to be discharged to home Time Spent with Patient Time attestation: Total time managing care of this patient today ____ minutes. Discharge coordination time: Greater than 30 minutes Quality: Safe Use of Opioids Does Pt have an Active Cancer Diagnosis on the Problem List?: No Quality: Stroke Does the patient have a stroke diagnosis?: No Physical Exam Vital Signs: Vital Signs: Last Vital Signs Temp 98.1 F 06/15/23 12:02 Pulse 98 06/15/23 12:02 Resp 20 06/15/23 12:02 BP 133/103 H 06/15/23 12:02 Pulse Ox 96 06/15/23 07:26 O2 Del Method Room Air 06/15/23 07:26 BMI result Body Mass Index 29.0 DS: Data Data Completed and Pending Completed studies during hospitalization [Text1]: Procedures Performance of Urinary Filtration, Intermittent, Less than 6 Hours Per Day (03/13/23) Transfusion of Nonautologous Red Blood Cells into Peripheral Vein, Percutaneous Approach (04/19/23) Labs on day of discharge: Laboratory Results - last 24 hr 06/14/23 06/15/23 16:24 06:47 WBC 6.4 5.2 RBC 2.88 L D 2.69 L Hgb 9.1 L D 8.4 L Hct 26.9 L D 25.9 L MCV 93.4 96.3 MCH 31.6 31.2 MCHC 33.8 32.4 RDW 12.6 12.8 Plt Count 137 L 142 L MPV 9.3 L 10.0 Immature Gran % (Auto) 0.5 H 0.2 Neut % (Auto) 73.3 H 62.7 Lymph % (Auto) 10.5 L 17.9 L [place] % (Auto) 13.8 H 16.3 H Eos % (Auto) 1.6 2.5 Baso % (Auto) 0.3 0.4 Lymph # (Auto) 0.7 L 0.9 L [place] # (Auto) 0.9 0.8 Eos # (Auto) 0.1 0.1 Baso # (Auto) 0.0 0.0 Abs Immat Gran (auto) 0.03 0.01 Absolute Neuts (auto) 4.7 3.2 Absolute Nucleated RBC 0.000 0.000 Nucleated RBC % (auto) 0.0 0.0 Sodium 137 139 Potassium 5.3 H D 5.2 H Chloride 106 105 Carbon Dioxide 18 L 19 L Anion Gap 20 20 BUN 37 H 44 H Creatinine 11.06 H* 12.41 H* Estim Creat Clear Calc 12.0 10.6 Estimated GFR 6 5 Random Glucose 96 99 Calcium 10.1 D 9.6 Total Bilirubin 0.3 AST 9 ALT 8 Alkaline Phosphatase 55 Total Protein 5.5 L Albumin 3.4 L Discharge Plan Discharge Anticipated Discharge Date/Time: 06/15/23 14:33 Patient Disposition: Home, Self-Care Discharge Diagnosis: ESRD on HD with hyperkalemia Referrals: Physician,Unknown J [Primary Care Provider] - 1 Week Discharge Medications: Continued carvedilol 25 mg tablet 25 mg PO BID atorvastatin 20 mg tablet 20 mg PO BEDTIME ondansetron HCl 4 mg tablet 4 mg PO Q8H PRN (Reason: Nausea) sennosides-docusate sodium [Senna Plus] 8.6-50 mg tablet 2 tab PO BID acetaminophen 500 mg tablet 1,000 mg PO TID PRN (Reason: pain) alprazolam 0.5 mg tablet 0.5 mg PO BID PRN (Reason: anxiety) nitroglycerin 0.4 mg tablet, sublingual 0.4 mg sublingual Q5M PRN (Reason: Chest Pain) calcium carbonate 500 mg calcium (1,250 mg) Tablet,Chewable 500 mg PO DAILY PRN (Reason: Acid Reflux) clonidine 0.3 mg/24 hr patch weekly 1 patch topical SA@0900 gabapentin 100 mg capsule 100 mg PO BID polyethylene glycol 3350 17 gram/dose powder 17 g PO DAILY PRN (Reason: Constipation) nifedipine 60 mg tablet extended release 120 mg PO DAILY losartan 100 mg tablet 100 mg PO DAILY sertraline 50 mg tablet 50 mg PO DAILY cinacalcet 90 mg Tablet 90 mg PO MOWEFR@1645 Rx Instructions: only on dialysis days lactulose 10 gram/15 mL solution 15 ml PO DAILY PRN (Reason: Constipation) sevelamer carbonate 800 mg tablet 2,400 mg PO TIDWMEAL hydrocortisone 0.5 % Cream 1 appl TOPICAL DAILY PRN (Reason: Rash) Rx Instructions: face ketoconazole 2 % Cream 1 appl TOPICAL DAILY PRN (Reason: Rash) Rx Instructions: face hydralazine 50 mg Tablet 50 mg PO TID Qty: 90 0RF Protocol: Hold for SBP< HOLD for SBP < : 90 Renal Caps 1 mg capsule 1 cap PO DAILY levetiracetam 500 mg tablet 500 mg PO MOWEFR@1645 Rx Instructions: AFTER DIAYLSIS cholecalciferol (vitamin D3) 1,250 mcg (50,000 unit) capsule 1,250 mcg PO FR levetiracetam 1,000 mg tablet 500 mg PO BID Discharge Orders: Discharge Order (Routine); Ordered 06/15/23 Ordered By: Lemuel Goldstein Diet: Advance to usual diet Activity on Discharge: As tolerated Stand Alone Forms: Patient Portal Discharge page Care Plan Goals: Resume all medicines as taken prior to hospital. There were no changes made to your regimen Health Concerns: Resume dialysis schedule as previously Plan of Treatment: Follow-up PCP as scheduled Assessment: See discharge summary
== END 2023-06-15 15:37 | disposition home or self-care (01) ==
LOC: HO.ED 17:55 → HO.EDOVER 18:48 → HO.IMC 19:23
PROVIDERS: Admitting Provider Hospitalist; Emergency Provider Emergency Medicine; Visit Provider Hospitalist
DX: E87.5 Hyperkalemia (principal); E87.20 Acidosis, unspecified; R55 Syncope and collapse; I12.0 Hypertensive chronic kidney disease with stage 5 chronic kidney disease or end stage renal disease; N18.6 End stage renal disease; Z99.2 Dependence on renal dialysis; M54.50 Low back pain, unspecified; G40.909 Epilepsy, unspecified, not intractable, without status epilepticus
CPT/HCPCS: 36415; 72100; 80048; 80053; 85025; 90999; 93005; 99222; 99284

== ENCOUNTER → 2023-06-14 18:40 | Outpatient (BNV) | payer OTHER, SELFPAY | PROVIDERS: Admitting Provider Hospitalist; Emergency Provider Emergency Medicine; Visit Provider Hospitalist | DX: E87.5 Hyperkalemia (principal); R55 Syncope and collapse | CPT/HCPCS: 99223; 99239 ==

== ENCOUNTER 2023-07-22 19:39 | Emergency (ER) | payer OTHER, SELFPAY ==
--- NOTE | 2023-07-22 | ECG_ITS ---
Test Reason : FALL Blood Pressure : / mmHG Vent. Rate : 080 BPM Atrial Rate : 080 BPM P-R Int : 190 ms QRS Dur : 092 ms QT Int : 364 ms P-R-T Axes : 047 022 047 degrees QTc Int : 419 ms Normal sinus rhythm Possible Acute pericarditis Nonspecific ST abnormality Abnormal ECG When compared with ECG of 14-JUN-2023 14:34, Nonspecific T wave abnormality now evident in Lateral leads Inferior leads Heart rate has decreased T wave amplitude has decreased in Anterior leads Referred By: Generic ED Physician Electronically Signed By:JEANNINE MOONEY MD
--- NOTE | ~2023-07-22 | CT_ITS ---
EXAMINATION: CT HEAD WITHOUT CONTRAST CLINICAL INFORMATION: Head injury. COMPARISON: None available. TECHNIQUE: Contiguous axial imaging was performed from the skull base to vertex without intravenous administration of contrast. This CT examination was performed using dose optimization techniques as appropriate, variously including the following: *Automated exposure control *Adjustment of mA and/or kV according to patient size (this includes techniques or standardized protocols for targeted exams where dose is matched to indication/reason for exam; i.e. extremities or head) *Use of iterative reconstruction technique DLP: 655 mGy-cm FINDINGS: The lateral, third and fourth ventricles are normally outlined. The cortical sulci and basal cisterns are normally outlined as well. There is no acute territorial defect, hemorrhage or midline shift. The extra-axial spaces are unremarkable. Calvarium: Intact. Maxillofacial sinuses and mastoids: Clear as visualized. CT/CT head/brain wo IV con IMPRESSION: No acute intracranial pathology.
[2023-07-22 19:44] VITALS: BP 116/86; BP 142/106; PULSE 85; PULSE 92; RESP 18; TEMP 36.8; O2SAT 98; BMI 27.9
[2023-07-22 19:48] VITALS: PULSE 81; RESP 18
--- NOTE | 2023-07-22 19:51 | PC.NURSE ---
pt BIBA from home. pt report having a fall after a bowel movement. pt reports standing up and walking out of bathroom when everything went black and he passed out. pt step father witnessed fall and reports pt down for 30 seconds. pt reports hx of syncope in the past. pt a&ox4. respirations even and unlabored. pt denies n/v/d and chest pain. pt has redness noted center forehead. pt reports 8/10 head pain. pt reports he has stage 5 kidney failure and receives dialysis through a port. last received dialysis today. pt normal sinus on tele 86-89.
--- NOTE | 2023-07-22 21:33 | ED.SYNCOPE ---
HPI - Syncope General Chief Complaint: Fall Stated Complaint: SYNCOPAL EPISODE Time Seen by Provider: 07/22/23 20:54 Source: patient Mode of arrival: EMS Limitations: no limitations History of Present Illness HPI narrative: Patient incident disease on dialysis for last 3 years history of syncope episodes/complex partial seizure for some time started on Keppra for last 3 months last syncope episode was 1 month ago today patient had dialysis came home had loose bowels 3 times nausea or coming back to the room patient felt very dizzy and fell forward hitting his forehead to the ground patient does not remember the episode no seizure activity noticed patient takes Keppra 500 mg twice daily and on the day of dialysis he takes 1500 mg 1 before dialysis and 2 after dialysis patient is due for the evening dose today no tongue bite no incontinence patient complaining of frontal headache after the fall. Patient usually does not get headaches very often Related Data Home Medications Medication Instructions Recorded Confirmed acetaminophen 500 mg tablet 1,000 mg PO TID PRN pain 03/13/23 06/14/23 alprazolam 0.5 mg tablet 0.5 mg PO BID PRN anxiety 03/13/23 06/14/23 atorvastatin 20 mg tablet 20 mg PO BEDTIME 03/13/23 06/14/23 calcium carbonate 500 mg calcium 500 mg PO DAILY PRN Acid Reflux 03/13/23 06/14/23 (1,250 mg) chewable tablet carvedilol 25 mg tablet 25 mg PO BID 03/13/23 06/14/23 cinacalcet 90 mg tablet 90 mg PO MOWEFR@1645 03/13/23 06/14/23 clonidine 0.3 mg/24 hr weekly 1 patch topical SA@0900 03/13/23 06/14/23 transdermal patch gabapentin 100 mg capsule 100 mg PO BID 03/13/23 06/14/23 hydrocortisone 0.5 % topical cream 1 appl topical DAILY PRN Rash 03/13/23 06/14/23 ketoconazole 2 % topical cream 1 appl topical DAILY PRN Rash 03/13/23 06/14/23 lactulose 10 gram/15 mL oral 15 ml PO DAILY PRN Constipation 03/13/23 06/14/23 solution losartan 100 mg tablet 100 mg PO DAILY 03/13/23 06/14/23 nifedipine 60 mg tablet,extended 120 mg PO DAILY 06/21/23 09/22/23 release nitroglycerin 0.4 mg sublingual 0.4 mg sublingual Q5M PRN Chest 03/13/23 06/14/23 tablet Pain ondansetron HCl 4 mg tablet 4 mg PO Q8H PRN Nausea 03/13/23 06/14/23 polyethylene glycol 3350 17 17 g PO DAILY PRN Constipation 03/13/23 06/14/23 gram/dose oral powder sennosides 8.6 mg-docusate sodium 2 tab PO BID 03/13/23 06/14/23 50 mg tablet (Senna Plus) sertraline 50 mg tablet 50 mg PO DAILY 03/13/23 06/14/23 sevelamer carbonate 800 mg tablet 2,400 mg PO TIDWMEAL 03/13/23 06/14/23 vitamin B complex and vitamin C 1 cap PO DAILY 04/19/23 06/14/23 no.20-folic acid 1 mg capsule (Renal Caps) cholecalciferol (vitamin D3) 1,250 1,250 mcg PO FR 06/14/23 06/14/23 mcg (50,000 unit) capsule levetiracetam 1,000 mg tablet 500 mg PO BID 06/14/23 06/14/23 levetiracetam 500 mg tablet 500 mg PO MOWEFR@1645 06/14/23 06/14/23 Previous Rx's Medication Instructions Recorded hydralazine 50 mg tablet 50 mg PO TID #90 tabs 03/24/23 Allergies Allergy/AdvReac Type Severity Reaction Status Date / Time ceftriaxone AdvReac Nausea and Verified 07/22/23 19:44 Vomiting lorazepam [From Ativan] AdvReac Shakiness Verified 07/22/23 19:44 metoclopramide [From Reglan] AdvReac Nausea Verified 07/22/23 19:44 Review of Systems Review of Systems: Yes all other systems are reviewed and are negative PMFSH Past Medical History Medical History Drug abuse Normocytic anemia CKD (chronic kidney disease) Syncope Anemia HTN (hypertension) Seizure disorder ESRD on dialysis End stage chronic kidney disease Bilateral lower extremity pain Back pain Family History Family History Sister Substance use disorder Social History Social History Household Members: Family Household Members Other:: mom, step dad, sister and nephew Housing: House Do you presently have visiting nurse or other home services: No Alcohol intake: never Patient Tobacco Use Status: Never used Tobacco Smoked in Last 30 Days: No e-Cigarette/Vaping Use: Never Used Use of substances other than those prescribed or required for medical reasons: Yes Substance Use Type: Marijuana Substance Use Frequency: Daily Advance Directives: No Advance Directives Information Provided: No service: No Cognitive needs: No Hearing needs: No Vision needs: No Physical Exam Vital Signs: Vital Signs: Last Vital Signs Temp 98.2 F 07/22/23 23:52 Pulse 103 H 07/23/23 00:51 Resp 20 07/22/23 23:52 BP 99/64 07/23/23 00:51 Pulse Ox 98 07/22/23 23:52 O2 Del Method Room Air 07/22/23 23:52 BMI result Body Mass Index 27.9 Appearance: Alert. Oriented X3. No acute distress. Eyes: PERRLA, No Nystagmus ENT: Pharynx normal. Oral Mucosa moist no tongue bite, superficial abrasions soft tissue swelling of the forehead Neck: Normal inspection. Neck supple. No midline tenderness CVS: Normal heart rate and rhythm. Pulses normal. Respiratory: No respiratory distress. Equal air entry bilateral, no wheezing/rales/rhonchi Abdomen: Soft and nontender. Bowel sounds are present, no mass palpable, no CVA tenderness Skin: Skin warm and dry. Normal skin color. Normal skin turgor. Extremities: No lower extremity edema. No calf tenderness Neuro: Oriented X 3. No motor deficit. No sensory deficit.No cerebellar signs , cranial nerves II-XII intact Medications Administered Discontinued Medications Generic Name Dose Route Start Last Admin Trade Name Freq PRN Reason Stop Dose Admin Midodrine 5 mg 07/23/23 01:08 07/23/23 01:13 Midodrine Hcl 5 Mg Tablet PO 07/23/23 01:09 5 mg ONCE ONE Administration Morphine Sulfate 15 mg 07/22/23 22:10 07/22/23 22:20 Morphine Sulfate Immed Release 15 Mg Tablet PO 07/22/23 22:11 15 mg ONCE ONE Administration Medical Decision Making Medical Decision Making MDM Narrative: Patient with history of complex partial seizures on Keppra with history of syncope episodes multiple times questionable seizure usually on the day of dialysis came with similar episode with minor head injury CT scan of the head is negative patient ambulatory in the ED without any discomfort no dizziness noticed in the ER discharge patient home vital stable patient did drop his blood pressure on standing positive orthostatic hypotension will give him p.o. fluids Patient given midodrine 5 mg repeat orthostatics shows improvement discharge patient home Radiology Impression Discussion of test interpretation with radiology: I have reviewed the radiologist's reading. Discharge Plan Discharge Clinical Impression: Seizure disorder, Syncope Patient Disposition: Home, Self-Care Instructions: Syncope (ED), Epilepsy (ED) Additional Instructions: Likely you had a complex partial seizure/transient drop in blood pressure Continue taking medications for seizure as prescribed Drink extra fluid on the day of dialysis Follow-up with your neurologist Prescriptions: No Action carvedilol 25 mg tablet 25 mg PO BID atorvastatin 20 mg tablet 20 mg PO BEDTIME ondansetron HCl 4 mg tablet 4 mg PO Q8H PRN (Reason: Nausea) sennosides-docusate sodium [Senna Plus] 8.6-50 mg tablet 2 tab PO BID acetaminophen 500 mg tablet 1,000 mg PO TID PRN (Reason: pain) alprazolam 0.5 mg tablet 0.5 mg PO BID PRN (Reason: anxiety) nitroglycerin 0.4 mg tablet, sublingual 0.4 mg sublingual Q5M PRN (Reason: Chest Pain) calcium carbonate 500 mg calcium (1,250 mg) Tablet,Chewable 500 mg PO DAILY PRN (Reason: Acid Reflux) clonidine 0.3 mg/24 hr patch weekly 1 patch topical SA@0900 gabapentin 100 mg capsule 100 mg PO BID polyethylene glycol 3350 17 gram/dose powder 17 g PO DAILY PRN (Reason: Constipation) nifedipine 60 mg tablet extended release 120 mg PO DAILY losartan 100 mg tablet 100 mg PO DAILY sertraline 50 mg tablet 50 mg PO DAILY cinacalcet 90 mg Tablet 90 mg PO MOWEFR@1645 Rx Instructions: only on dialysis days lactulose 10 gram/15 mL solution 15 ml PO DAILY PRN (Reason: Constipation) sevelamer carbonate 800 mg tablet 2,400 mg PO TIDWMEAL hydrocortisone 0.5 % Cream 1 appl TOPICAL DAILY PRN (Reason: Rash) Rx Instructions: face ketoconazole 2 % Cream 1 appl TOPICAL DAILY PRN (Reason: Rash) Rx Instructions: face hydralazine 50 mg Tablet 50 mg PO TID Qty: 90 0RF Protocol: Hold for SBP< HOLD for SBP < : 90 Renal Caps 1 mg capsule 1 cap PO DAILY levetiracetam 500 mg tablet 500 mg PO MOWEFR@1645 Rx Instructions: AFTER DIAYLSIS cholecalciferol (vitamin D3) 1,250 mcg (50,000 unit) capsule 1,250 mcg PO FR levetiracetam 1,000 mg tablet 500 mg PO BID
[2023-07-22 21:47] VITALS: BP 111/72; PULSE 90; RESP 22; TEMP 36.7; O2SAT 98
[2023-07-22] MEDS: Morphine Sulfate Immed Release 15 MG TABLET PO (22:20)
[2023-07-22 23:52] VITALS: BP 120/85; PULSE 77; RESP 20; TEMP 36.8; O2SAT 98
[2023-07-23 00:49] VITALS: BP 121/79; PULSE 78
[2023-07-23 00:50] VITALS: BP 109/68; PULSE 99
[2023-07-23 00:51] VITALS: BP 99/64; PULSE 103
[2023-07-23] MEDS: Midodrine HCl 5 MG TABLET PO (01:13)
[2023-07-23 01:36] VITALS: BP 131/79; PULSE 83
[2023-07-23 01:38] VITALS: BP 120/79; PULSE 92
[2023-07-23 01:39] VITALS: BP 108/75; PULSE 104
== END 2023-07-23 01:58 | disposition home or self-care (01) ==
PROVIDERS: Emergency Provider Internal Medicine
DX: G40.909 Epilepsy, unspecified, not intractable, without status epilepticus (principal); R55 Syncope and collapse; R42 Dizziness and giddiness; R94.31 Abnormal electrocardiogram [ECG] [EKG]; Z79.899 Other long term (current) drug therapy
CPT/HCPCS: 70450; 93005; 99284; 99285

== ENCOUNTER 2023-12-09 13:36 | Inpatient (IN) | payer OTHER, SELFPAY ==
[2023-12-09] VITALS (7 sets, daily range): BP systolic 159–192; BP diastolic 104–170; PULSE 66–80; RESP 14–18; TEMP 36.4–36.8; O2SAT 97–100; BMI 29.8
--- NOTE | ~2023-12-09 | CT_ITS ---
EXAMINATION: CT HEAD WITHOUT CONTRAST CLINICAL INFORMATION: Headache. COMPARISON: CT scan of the head 07/22/2023. Brain MRI 03/15/2023. TECHNIQUE: Contiguous axial imaging was performed from the skull base to vertex without intravenous administration of contrast. This CT examination was performed using dose optimization techniques as appropriate, variously including the following: *Automated exposure control *Adjustment of mA and/or kV according to patient size (this includes techniques or standardized protocols for targeted exams where dose is matched to indication/reason for exam; i.e. extremities or head) *Use of iterative reconstruction technique DLP: 899 mGy-cm FINDINGS: Again there are a few small dystrophic calcifications located within the subcortical white matter of the right inferior frontal lobe. There is no acute intracranial hemorrhage or abnormal extra-axial collection. No intracranial mass effect or midline shift. Lateral and third ventricles are normal. No hydrocephalus. Bruce-white matter differentiation is grossly preserved and there is no evidence of acute territorial infarct. The calvarium and skull base are intact. Mastoid air cells and middle ear cavities are well aerated. No active paranasal sinus disease. CT/CT head/brain wo IV con IMPRESSION: Again there are small dystrophic calcifications associated with a known vascular lesion located along the inferior aspect of the right frontal lobe. Otherwise normal CT scan of the head. No evidence of acute territorial infarct or hemorrhage. No intracranial mass effect or hydrocephalus.
--- NOTE | ~2023-12-09 | XR_ITS ---
EXAMINATION: XR CHEST CLINICAL INFORMATION: Chest pain. COMPARISON: Chest radiograph 05/18/2023. TECHNIQUE: 2 views of the chest were obtained. FINDINGS: Right-sided CT compatible chest port with tip projecting over the region of the superior cavoatrial junction. Normal appearance of the cardiomediastinal silhouette. No focal airspace opacities, pleural effusion or pneumothorax. No evidence of pulmonary edema. No acute osseous findings. XR/XR chest 2V IMPRESSION: No acute cardiopulmonary findings.
--- NOTE | 2023-12-09 14:34 | ECG_ITS ---
Test Reason : CHEST PAIN Blood Pressure : / mmHG Vent. Rate : 068 BPM Atrial Rate : 068 BPM P-R Int : 214 ms QRS Dur : 096 ms QT Int : 394 ms P-R-T Axes : 066 022 054 degrees QTc Int : 418 ms Sinus rhythm with 1st degree A-V block Very mild ST elevation inferior leads Otherwise normal EKG When compared with ECG of 22-JUL-2023 19:50, No significant changes seen Referred By: Yaritza Mcwilliams Electronically Signed By:CHASE FERREIRA
--- NOTE | 2023-12-09 14:34 | ED_ITS ---
HPI - General Adult General Chief complaint: General Medical Stated complaint: CP LOWER BACK PAIN Time Seen by Provider: 12/09/23 15:37 History of Present Illness HPI narrative: 28 y/o M patient; PMH ESRD on dialysis M/W/F, SLE, HTN; presents from home reporting two days of diffuse muscle aches and generalized weakness. Patient denies missing any recent dialysis appointments other than this morning's appointment due to his current symptoms. Director Of Enrollment: Dr. Hicks Related Data Home Medications Medication Instructions Recorded Confirmed acetaminophen 500 mg tablet 1,000 mg PO TID PRN pain 03/13/23 06/14/23 alprazolam 0.5 mg tablet 0.5 mg PO BID PRN anxiety 03/13/23 06/14/23 atorvastatin 20 mg tablet 20 mg PO BEDTIME 03/13/23 06/14/23 calcium carbonate 500 mg calcium 500 mg PO DAILY PRN Acid Reflux 03/13/23 06/14/23 (1,250 mg) chewable tablet carvedilol 25 mg tablet 25 mg PO BID 03/13/23 06/14/23 cinacalcet 90 mg tablet 90 mg PO MOWEFR@1645 03/13/23 06/14/23 clonidine 0.3 mg/24 hr weekly 1 patch topical SA@0900 03/13/23 06/14/23 transdermal patch gabapentin 100 mg capsule 100 mg PO BID 03/13/23 06/14/23 hydrocortisone 0.5 % topical cream 1 appl topical DAILY PRN Rash 03/13/23 06/14/23 ketoconazole 2 % topical cream 1 appl topical DAILY PRN Rash 03/13/23 06/14/23 lactulose 10 gram/15 mL oral 15 ml PO DAILY PRN Constipation 03/13/23 06/14/23 solution losartan 100 mg tablet 100 mg PO DAILY 03/13/23 06/14/23 nifedipine 60 mg tablet,extended 120 mg PO DAILY 03/13/23 06/14/23 release nitroglycerin 0.4 mg sublingual 0.4 mg sublingual Q5M PRN Chest 03/13/23 06/14/23 tablet Pain ondansetron HCl 4 mg tablet 4 mg PO Q8H PRN Nausea 03/13/23 06/14/23 polyethylene glycol 3350 17 17 g PO DAILY PRN Constipation 03/13/23 06/14/23 gram/dose oral powder sennosides 8.6 mg-docusate sodium 2 tab PO BID 03/13/23 06/14/23 50 mg tablet (Senna Plus) sertraline 50 mg tablet 50 mg PO DAILY 03/13/23 06/14/23 sevelamer carbonate 800 mg tablet 2,400 mg PO TIDWMEAL 03/13/23 06/14/23 vitamin B complex and vitamin C 1 cap PO DAILY 04/19/23 06/14/23 no.20-folic acid 1 mg capsule (Renal Caps) cholecalciferol (vitamin D3) 1,250 1,250 mcg PO FR 06/14/23 06/14/23 mcg (50,000 unit) capsule levetiracetam 1,000 mg tablet 500 mg PO BID 06/14/23 06/14/23 levetiracetam 500 mg tablet 500 mg PO MOWEFR@1645 06/14/23 06/14/23 Previous Rx's Medication Instructions Recorded hydralazine 50 mg tablet 50 mg PO TID #90 tabs 03/24/23 Allergies Allergy/AdvReac Type Severity Reaction Status Date / Time ceftriaxone AdvReac Nausea and Verified 07/22/23 19:44 Vomiting lorazepam [From Ativan] AdvReac Shakiness Verified 07/22/23 19:44 metoclopramide [From Reglan] AdvReac Nausea Verified 07/22/23 19:44 Review of Systems 2 Review of Systems: Yes all other systems are reviewed and are negative PMFSH Past Medical History Attestation statement: The following information was validated with the patient. Source: old records reviewed Medical History Drug abuse Normocytic anemia CKD (chronic kidney disease) Syncope Anemia HTN (hypertension) Seizure disorder ESRD on dialysis End stage chronic kidney disease Bilateral lower extremity pain Back pain Family History Family History Sister Substance use disorder Social History Social History Household Members: Family Household Members Other:: mom, step dad, sister and nephew Housing: House Do you presently have visiting nurse or other home services: No Alcohol intake: former Comment: Pt refusing bed alarm Patient Tobacco Use Status: Never used Tobacco Smoked in Last 30 Days: No e-Cigarette/Vaping Use: Never Used Use of substances other than those prescribed or required for medical reasons: Yes Substance Use Type: Marijuana Advance Directives: No Advance Directives Information Provided: No service: No Cognitive needs: No Hearing needs: No Vision needs: No Physical Exam ED Vital Signs: Vital Signs - 24 hr 12/09/23 14:33 12/09/23 15:38 Temperature 97.6 F Pulse Rate 77 66 Respiratory Rate 18 18 Blood Pressure 192/170 H 159/107 H Pulse Oximetry 100 100 Oxygen Delivery Method Room Air Room Air BMI result Body Mass Index 29.8 Patient is afebrile, hypertensive. Const General: cooperative HENMT Head: Yes atraumatic Eyes General: appearance normal, both eyes and all related structures Neck Neck: Yes normal visual inspection, Yes full ROM, Yes supple and No tender Chest Chest palpation & inspection: normal inspection of the chest and normal palpation of entire chest wall Resp Effort & Inspection: normal respiratory effort, able to speak in complete sentences, no cough and no respiratory distress Auscultation: clear to auscultation bilaterally Cardio Rate: regular rate Rhythm: regular rhythm Peripheral pulses: Peripheral pulses 2+ throughout GI Inspection: Yes normal to inspection, No Abdominal wall edema and No distended Palpation (GI): Soft to palpation, not firm, nontender, no guarding and not rigid Auscultation: normal bowel sounds Extrem Other: Diffuse muscle tenderness in upper and lower extremities Course Course Course Narrative: RME performed by Yaritza Mcwilliams PA-C. Patient is a 28 year old assigned male at presenting to the emergency department with chest pain and low back pain. Patient is supposed to dialyze today. Detailed physical exam and review of systems are deferred to the reforestation worker. Labs, imaging, and swabs ordered. Patient placed back in the waiting room pending room availability and results. Reevaluation(s) Reevaluation #1: Provided patient's EKG in triage. Immediately noted hyperacute T waves - nursing charge notified and room requested. Calcium gluconate provided. Potassium resulted at 8. Added albuterol NEB high dose, insulin and dextrose IV. Patient's covering city marshal paged - will arrange emergent dialysis session. Plan: Admit to hospitalist Condition: Stable Medications Administered Discontinued Medications Generic Name Dose Route Start Last Admin Trade Name Freq PRN Reason Stop Dose Admin Sodium Zirconium Cyclosilicate 5 gm 12/09/23 15:52 12/09/23 16:38 Sodium Zirconium Cyclosilicate 5 Gm Powd.Pack PO 12/09/23 15:53 5 gm ONCE ONE Administration Medical Decision Making Lab Data 12/09/23 14:57 12/09/23 14:57 Labs: Lab Results 12/09/23 12/09/23 12/09/23 Range/Units 14:57 15:00 16:33 WBC 9.4 (4.8-10.8) X10*3/uL RBC 3.10 L (4.60-5.80) X10*6/uL Hgb 10.3 L D (14.0-18.0) g/dl Hct 29.4 L (42.0-52.0) % MCV 94.8 (80.0-98.0) fL MCH 33.2 H (27.0-33.0) pg MCHC 35.0 (31.0-36.0) g/dl RDW 12.5 (11.0-16.0) % Plt Count 151 L (160-400) X10*3/uL MPV 9.7 (9.4-12.4) fL Immature Gran % (Auto) 0.5 H (0.0-0.4) % Neut % (Auto) 79.1 H (45-73) % Lymph % (Auto) 10.6 L (20-40) % Castro % (Auto) 6.9 (2-11) % Eos % (Auto) 2.3 (0-4) % Baso % (Auto) 0.6 (0-2) % Lymph # (Auto) 1.0 L (1.2-4.9) X10*3/uL Castro # (Auto) 0.7 (0.1-1.2) X10*3/uL Eos # (Auto) 0.2 (0.0-0.4) X10*3/uL Baso # (Auto) 0.1 (0.0-0.2) X10*3/uL Abs Immat Gran (auto) 0.05 H (0.00-0.03) X10*3/uL Absolute Neuts (auto) 7.5 (2.0-8.3) x10*3/uL Absolute Nucleated RBC 0.000 (0.0-0.012) X10*3/uL Nucleated RBC % (auto) 0.0 (0.0-0.2) /100WBC VBG pH 7.33 (7.32-7.43) VBG pCO2 26 mmHg VBG pO2 104 mmHg VBG HCO3 14 L (22-26) mmol/L VBG O2 Saturation 100.0 % VBG Base Excess -9.8 mmol/L Sodium 135 (135-145) mmol/L Potassium 8.0 H* (3.3-5.1) mmol/L Chloride 101 (96-108) mmol/L Carbon Dioxide 13 L (22-29) mmol/L Anion Gap 29 H (12-20) BUN 68 H (9-16) mg/dL Creatinine 13.20 H* (0.5-1.4) mg/dL Estim Creat Clear Calc 10.0 Estimated GFR 4 POC Glucose 75 (60-115) mg/dL Random Glucose 82 (60-115) mg/dL Calcium 8.4 D (8.4-10.2) mg/dL Magnesium 1.9 (1.6-2.6) mg/dL Total Bilirubin 0.4 (0.0-1.0) mg/dL AST 24 (5-37) U/L ALT 35 (0-40) U/L Alkaline Phosphatase 113 (39-117) U/L Total Protein 6.5 (6.5-8.0) g/dL Albumin 4.2 (3.5-5.0) g/dL Influenza Type A (PCR) NEGATIVE (Negative) Influenza Type B (PCR) NEGATIVE (Negative) RSV RNA Qual (PCR) NEGATIVE (Negative) SARS-CoV-2 RNA (RT-PCR) NEGATIVE (Negative) Critical Care Time Critical Care Time Critical Care Time: Yes Total Critical Care Time: 30 Attestation: Management of hyperkalemia - emergent dialysis and specialist consultation Discharge Plan Discharge Clinical Impression: CKD (chronic kidney disease), Acute hyperkalemia Patient Disposition: Admitted As Inpatient Prescriptions: No Action carvedilol 25 mg tablet 25 mg PO BID atorvastatin 20 mg tablet 20 mg PO BEDTIME ondansetron HCl 4 mg tablet 4 mg PO Q8H PRN (Reason: Nausea) sennosides-docusate sodium [Senna Plus] 8.6-50 mg tablet 2 tab PO BID acetaminophen 500 mg tablet 1,000 mg PO TID PRN (Reason: pain) alprazolam 0.5 mg tablet 0.5 mg PO BID PRN (Reason: anxiety) nitroglycerin 0.4 mg tablet, sublingual 0.4 mg sublingual Q5M PRN (Reason: Chest Pain) calcium carbonate 500 mg calcium (1,250 mg) Tablet,Chewable 500 mg PO DAILY PRN (Reason: Acid Reflux) clonidine 0.3 mg/24 hr patch weekly 1 patch topical SA@0900 gabapentin 100 mg capsule 100 mg PO BID polyethylene glycol 3350 17 gram/dose powder 17 g PO DAILY PRN (Reason: Constipation) nifedipine 60 mg tablet extended release 120 mg PO DAILY losartan 100 mg tablet 100 mg PO DAILY sertraline 50 mg tablet 50 mg PO DAILY cinacalcet 90 mg Tablet 90 mg PO MOWEFR@1644 Rx Instructions: only on dialysis days lactulose 10 gram/15 mL solution 15 ml PO DAILY PRN (Reason: Constipation) sevelamer carbonate 800 mg tablet 2,400 mg PO TIDWMEAL hydrocortisone 0.5 % Cream 1 appl TOPICAL DAILY PRN (Reason: Rash) Rx Instructions: face ketoconazole 2 % Cream 1 appl TOPICAL DAILY PRN (Reason: Rash) Rx Instructions: face hydralazine 50 mg Tablet 50 mg PO TID Qty: 90 0RF Protocol: Hold for SBP< HOLD for SBP < : 90 Renal Caps 1 mg capsule 1 cap PO DAILY levetiracetam 500 mg tablet 500 mg PO MOWEFR@1644 Rx Instructions: AFTER DIAYLSIS cholecalciferol (vitamin D3) 1,250 mcg (50,000 unit) capsule 1,250 mcg PO FR levetiracetam 1,000 mg tablet 500 mg PO BID
[2023-12-09 15:02] LABS: MANUAL DIFF FLAG NO
[2023-12-09 15:04] LABS: Basophils Absolute Auto 0.1 X10*3/uL (0.0-0.2); Basophils Percent Auto 0.6 % (0-2); Eosinophils Absolute Auto 0.2 X10*3/uL (0.0-0.4); Eosinophils Percent Auto 2.3 % (0-4); Hematocrit 29.4 % (42.0-52.0); Hemoglobin 10.3 g/dl (14.0-18.0); Imm Gran Abs Auto 0.05 X10*3/uL (0.00-0.03); Imm Gran Pct Auto 0.5 % (0.0-0.4); Lymphocytes Percent Auto 10.6 % (20-40); Mean Corpuscular Hemoglobin 33.2 pg (27.0-33.0); Mean Corpuscular Volume 94.8 fL (80.0-98.0); Mean Platelet Volume 9.7 fL (9.4-12.4); Monocytes Absolute Auto 0.7 X10*3/uL (0.1-1.2); Monocytes Percent Auto 6.9 % (2-11); Neutrophils Absolute Auto 7.5 x10*3/uL (2.0-8.3); Neutrophils Percent Auto 79.1 % (45-73); Platelet Count 151 X10*3/uL (160-400); Red Cell Distribution Width 12.5 % (11.0-16.0); White Blood Count 9.4 X10*3/uL (4.8-10.8)
[2023-12-09 15:08] LABS: VBG Base Excess -9.8 mmol/L; VBG HCO3 14 mmol/L (22-26); VBG pCO2 26 mmHg; VBG pH 7.33 (7.32-7.43); VBG pO2 104 mmHg
[2023-12-09 15:08] LABS: Venous Blood Gas Refer to POC result
[2023-12-09 15:30] LABS: Alanine Aminotransferase 35 U/L (0-40); Albumin Level 4.2 g/dL (3.5-5.0); Alkaline Phosphatase 113 U/L (39-117); Anion Gap 29 (12-20); Aspartate Amino Transferase 24 U/L (5-37); Bilirubin Total 0.4 mg/dL (0.0-1.0); Blood Urea Nitrogen 68 mg/dL (9-16); Calcium 8.4 mg/dL (8.4-10.2); Carbon Dioxide 13 mmol/L (22-29); Chloride 101 mmol/L (96-108); Estimated Glomerular Filt Rate 4; Glucose Random 82 mg/dL (60-115); Magnesium 1.9 mg/dL (1.6-2.6); Sodium 135 mmol/L (135-145); Total Protein 6.5 g/dL (6.5-8.0)
[2023-12-09 15:44] LABS: Influenza A PCR NEGATIVE (Negative); Influenza B PCR NEGATIVE (Negative); Resp Syncy Virus RNA Qual PCR NEGATIVE (Negative); SARS COV2 PCR INHOUSE NEGATIVE (Negative)
[2023-12-09 16:36] LABS: Glucose, Whole Blood 75 mg/dL (60-115)
[2023-12-09] MEDS: Sodium Zirconium Cyclosilicate 5 GM POWD.PACK PO (16:38)
[2023-12-09] MEDS: Calcium Gluconate/NaCl,Iso-Osm 1 GM/50 ML PLAST..BAG IV (16:45)
--- NOTE | 2023-12-09 16:49 | PC.NURSE ---
Port accessed, calcium gluconate started per MD order
[2023-12-09] MEDS: Albuterol Sulfate 2.5 MG/0.5 ML VIAL.NEB 20 MG INHALE (17:01)
[2023-12-09] MEDS: Dextrose 50 % 25 GM/50 ML SYRINGE IVPUSH (17:01)
[2023-12-09] MEDS: Insulin Regular, Human 100 UNIT/ML 3 ML VIAL 10 UNIT IVPUSH (17:02)
[2023-12-09] MEDS: Acetaminophen 325 MG TABLET 975 MG PO (17:10)
--- NOTE | 2023-12-09 17:17 | ECG_ITS ---
Test Reason : HYPERTENSIVE Blood Pressure : / mmHG Vent. Rate : 079 BPM Atrial Rate : 079 BPM P-R Int : 178 ms QRS Dur : 090 ms QT Int : 380 ms P-R-T Axes : 053 015 044 degrees QTc Int : 435 ms Normal sinus rhythm Normal ECG When compared with ECG of 09-DEC-2023 14:46, CT interval has decreased Referred By: Catia Umanzor Electronically Signed By:CHASE FERREIRA
--- NOTE | 2023-12-09 17:26 | PC.NURSE ---
Patient alert and oriented, reports no longer feeling numbness and tingling in fingers. Dialysis coming to get patient for treatment
[2023-12-09 17:28] LABS: Glucose, Whole Blood 134 mg/dL (60-115)
--- NOTE | 2023-12-09 17:31 | P.HPHOSP_ITS ---
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 He presents with he presents with no feeling well with leg, back, and diffuse body ache, nasue and diarrhea which he states is normal for him after dialysis but persisted this time. He did not attend dialysis today and is rather here. Labs work show potassium of 8. Treated with Albuterol, calcium gluconate, insulin with dextrose, lokelma and arrangement has been made for urgent dialysis today. Review of Systems 2 Review of Systems: Gen: no fever Resp: no sob, no cough CV: no chest, no GLORIA, no leg edema GI: + n/v, no abd pain, +diarrha Neuro: No confusion [facility] Medical History Drug abuse Normocytic anemia CKD (chronic kidney disease) Syncope Anemia HTN (hypertension) Seizure disorder ESRD on dialysis End stage chronic kidney disease Bilateral lower extremity pain Back pain Family History Sister Substance use disorder Social History Household Members: Family Household Members Other:: mom, step dad, sister and nephew Housing: House Do you presently have visiting nurse or other home services: No Alcohol intake: former Comment: Pt refusing bed alarm Patient Tobacco Use Status: Never used Tobacco Smoked in Last 30 Days: No e-Cigarette/Vaping Use: Never Used Use of substances other than those prescribed or required for medical reasons: Yes Substance Use Type: Marijuana Currently Displaying Signs/Symptoms of Drug Intoxication Withdrawal: No Advance Directives: No Advance Directives Information Provided: No Do you have thoughts of harming others: None Do you have a plan to hurt others: No Plan Recently lost weight without trying: Unsure Eating poorly because of decreased appetite: No Nutrition Risks: No Nutritional Risk Poor oral hygiene: No service: No Cognitive needs: No Hearing needs: No Vision needs: No Meds Allergies Allergy/AdvReac Type Severity Reaction Status Date / Time ceftriaxone AdvReac Nausea and Verified 07/22/23 19:44 Vomiting lorazepam [From Ativan] AdvReac Shakiness Verified 07/22/23 19:44 metoclopramide [From Reglan] AdvReac Nausea Verified 07/22/23 19:44 Active Medications: Current Medications Acetaminophen (Acetaminophen Supp 650 Mg Supp.Rect) 650 mg WA Q6H PRN PRN Reason: Pain, Mild (Pain Scale 1-3) Heparin Sodium (Porcine) (Heparin Sodium,Porcine 5,000 Unit/Ml Vial) 5,000 unit SUBCUT Q12H [facility] Magnesium Hydroxide (Milk Of Magnesia 30 Ml Oral.Susp) 30 ml PO DAILY PRN PRN Reason: Constipation Ondansetron HCl (Ondansetron Hcl 4 Mg/2 Ml Vial) 4 mg IVPUSH Q8H PRN PRN Reason: Nausea and Vomiting Sodium Chloride (0.9 % Sodium Chloride Flush 3 Ml Syringe) 3 ml IVFLUSH QSHIFT [facility] Home Medications Medication Instructions Recorded Confirmed Last Taken Type acetaminophen 500 mg tablet 1,000 mg PO TID PRN pain 03/13/23 12/09/23 Unknown History atorvastatin 20 mg tablet 20 mg PO DAILY 03/13/23 12/09/23 12/09/23 History carvedilol 25 mg tablet 25 mg PO BID 03/13/23 12/09/23 12/09/23 History clonidine 0.3 mg/24 hr weekly 1 patch topical FR@0900 03/13/23 12/09/23 11/30/23 History transdermal patch gabapentin 100 mg capsule 200 mg PO BID 03/13/23 12/09/23 12/09/23 History hydrocortisone 0.5 % topical cream 1 appl topical DAILY PRN Rash 03/13/23 12/09/23 Unknown History ketoconazole 2 % topical cream 1 appl topical DAILY PRN Rash 03/13/23 12/09/23 Unknown History lactulose 10 gram/15 mL oral 15 ml PO DAILY PRN Constipation 03/13/23 12/09/23 Unknown History solution nifedipine 60 mg tablet,extended 60 mg PO SUTUTHSA@0900 03/13/23 12/09/23 12/09/23 History release ondansetron HCl 4 mg tablet 4 mg PO Q8H PRN Nausea 03/13/23 12/09/23 Unknown History polyethylene glycol 3350 17 17 g PO DAILY PRN Constipation 03/13/23 12/09/23 Unknown History gram/dose oral powder sennosides 8.6 mg-docusate sodium 2 tab PO BID 03/13/23 12/09/23 12/09/23 History 50 mg tablet (Senna Plus) sertraline 50 mg tablet 50 mg PO DAILY 03/13/23 12/09/23 12/09/23 History sevelamer carbonate 800 mg tablet 2,400 mg PO TIDWMEAL 03/13/23 12/09/23 12/09/23 History vitamin B complex and vitamin C 1 cap PO BEDTIME 04/19/23 12/09/23 06/14/23 History no.20-folic acid 1 mg capsule (Renal Caps) levetiracetam 1,000 mg tablet 500 mg PO BID 06/14/23 12/09/23 12/09/23 History levetiracetam 500 mg tablet 500 mg PO MOWEFR@1645 06/14/23 12/09/23 06/12/23 History losartan 50 mg tablet 50 mg PO BID 12/09/23 12/09/23 12/09/23 History Physical Exam 2 Vital Signs and Narrative: Vital Signs: Last Vital Signs Temp 98.2 F 12/09/23 17:06 Pulse 70 12/09/23 17:06 Resp 16 12/09/23 17:06 BP 174/104 H 12/09/23 17:06 Pulse Ox 99 12/09/23 17:06 O2 Del Method Room Air 12/09/23 17:06 BMI result Body Mass Index 29.8 General: AO X 3, no acute distress Resp: CTA bilateral CVS: S1,S2,RRR GI: +BS, NT, no distention Skin: No rash Neuro: motor grossly intact Psych: appropriate affect Results Labs 12/09/23 14:57 12/10/23 05:52 Labs: Laboratory Results - last 24 hr 12/09/23 12/09/23 12/09/23 14:57 15:00 16:33 MCV 94.8 MCH 33.2 H MCHC 35.0 RDW 12.5 Plt Count 151 L MPV 9.7 Immature Gran % (Auto) 0.5 H Neut % (Auto) 79.1 H Lymph % (Auto) 10.6 L [place] % (Auto) 6.9 Eos % (Auto) 2.3 Baso % (Auto) 0.6 Lymph # (Auto) 1.0 L [place] # (Auto) 0.7 Eos # (Auto) 0.2 Baso # (Auto) 0.1 Abs Immat Gran (auto) 0.05 H Absolute Neuts (auto) 7.5 Absolute Nucleated RBC 0.000 Nucleated RBC % (auto) 0.0 VBG pH 7.33 VBG pCO2 26 VBG pO2 104 VBG HCO3 14 L VBG O2 Saturation 100.0 VBG Base Excess -9.8 Anion Gap 29 H Estim Creat Clear Calc 10.0 Estimated GFR 4 POC Glucose 75 Random Glucose 82 Calcium 8.4 D Magnesium 1.9 Total Bilirubin 0.4 AST 24 ALT 35 Alkaline Phosphatase 113 Total Protein 6.5 Albumin 4.2 Influenza Type A (PCR) NEGATIVE Influenza Type B (PCR) NEGATIVE RSV RNA Qual (PCR) NEGATIVE SARS-CoV-2 RNA (RT-PCR) NEGATIVE 12/09/23 17:24 MCV MCH MCHC RDW Plt Count MPV Immature Gran % (Auto) Neut % (Auto) Lymph % (Auto) [place] % (Auto) Eos % (Auto) Baso % (Auto) Lymph # (Auto) [place] # (Auto) Eos # (Auto) Baso # (Auto) Abs Immat Gran (auto) Absolute Neuts (auto) Absolute Nucleated RBC Nucleated RBC % (auto) VBG pH VBG pCO2 VBG pO2 VBG HCO3 VBG O2 Saturation VBG Base Excess Anion Gap Estim Creat Clear Calc Estimated GFR POC Glucose 134 H Random Glucose Calcium Magnesium Total Bilirubin AST ALT Alkaline Phosphatase Total Protein Albumin Influenza Type A (PCR) Influenza Type B (PCR) RSV RNA Qual (PCR) SARS-CoV-2 RNA (RT-PCR) Assessment and Plan (1) Acute hyperkalemia: Status: Acute (2) CKD (chronic kidney disease): Status: Acute Plan 28-year-old male with a history of ADHD, hyperactivity, anemia, anxiety, depression, remote history of drug addiction with IV heroin, lupus with nephropathy and ESRD on dialysis here after missing dialysis and found to have acute hyperkalemia. #Acute Hyperkalemia--treated with insulin, lokelma, calcium gluconate and awaiting dialysis as definitive treatment, tele monitoring until after dialysis and repeat labs post dialysis #ESRD on dilaysis- HD MWF, nephrology aware #Metabolic Acidosis--likely related to ESRD and should improve after dialysis, recheck lab after dialysis #Diffuse pain, related to need for HD #HTN -continue home Clonidine, Nifedipine and hold [place] d/t high k #Chronic leg pain -continue gabapentin, tylenol #HLD -continue statin #GERD -continue ppi DVT prophylaxis- heparin Full code need for inpatient: Acute hyperkalemia needs urgent dialysis. Quality Stroke Does the patient have a stroke diagnosis?: No VTE Prior VTE?: No VTE Risk Level:: Medical - moderate - high VTE Device Contraindication: Treatment Not Indicated VTE Drug Contraindication: N/A - Med Ordered
--- NOTE | 2023-12-09 18:10 | PC.NURSE ---
Patient reports feeling better, patient requesting pain medication, provider aware
--- NOTE | 2023-12-09 18:10 | PC.NURSE ---
Brought to dialysis by transport
[2023-12-09] MEDS: Morphine Sulfate 2 MG/ML CARTRIDGE IVPUSH (21:03)
--- NOTE | 2023-12-09 22:08 | PC.NURSE ---
Delay in medication administration, patient currently being at dialysis.
[2023-12-09 22:14] LABS: Lactic Acid 0.5 mmol/L (0.5-2.0)
[2023-12-09 22:19] LABS: Anion Gap 16 (12-20); Blood Urea Nitrogen 22 mg/dL (9-16); Carbon Dioxide 23 mmol/L (22-29); Chloride 101 mmol/L (96-108); Creatinine Clr Calc Pharmacy 25.7; Estimated Glomerular Filt Rate 13; Glucose Random 98 mg/dL (60-115); Potassium 3.3 mmol/L (3.3-5.1); Sodium 137 mmol/L (135-145)
--- NOTE | 2023-12-09 22:20 | PC.NURSE ---
Lab called with critical level of creat 5.17. Dr. Kevin notified via [employer] message.
[2023-12-09] MEDS: Multivitamin TABLET 1 TAB PO (23:51)
[2023-12-09] MEDS: Gabapentin 100 MG CAPSULE 200 MG PO (23:51)
[2023-12-09] MEDS: carvediloL 25 MG TABLET PO (23:52)
[2023-12-09] MEDS: levETIRAcetam 500 MG TABLET PO (23:52)
[2023-12-10] MEDS: ondansetron HCL 4 MG/2 ML VIAL IVPUSH ×2 (00:03→08:49)
[2023-12-10] MEDS: Heparin Sodium,Porcine 5,000 UNIT/ML VIAL 5000 UNIT SUBCUT ×2 (00:04→08:45)
--- NOTE | 2023-12-10 00:04 | PC.NURSE ---
Pharmacy contacted re: Heparin 5,000 unit not administered as scheduled d/t was at dialysis, per pharmacist administer Heparin at 00:05 and Heparin will be adjusted to meet Q 12 hour schedule.
[2023-12-10 01:52] VITALS: BP 164/106; PULSE 82; RESP 18; TEMP 36.6; O2SAT 99
[2023-12-10] MEDS: 0.9 % Sodium Chloride Flush 3 ML SYRINGE IVFLUSH ×2 (01:54→08:45)
[2023-12-10 03:13] VITALS: BP 176/104; PULSE 75; RESP 18; TEMP 36.9; O2SAT 98
--- NOTE | 2023-12-10 03:39 | CONS_ITS ---
DATE OF SERVICE: HISTORY OF PRESENT ILLNESS: In summary, the patient is a 28-year-old gentleman, well known to the [facility] practice. Normally gets his dialysis Saturday, Saturday, Saturday. Presents to the emergency room having missed his dialysis today. Complaining of back pain, abdominal pain, some nauseousness, and diarrhea. In summary, he is a 28-year-old gentleman with a history of ESRD, was on peritoneal dialysis for about 5 years, and now is on hemodialysis for the past year via an AV fistula. He has a history of anemia, anxiety, depression, attention deficit disorder, remote history of drug addiction with IV heroin, and lupus glomerulonephritis, normally dialyzes Saturday, Saturday, Saturday. He presents again with some back and abdominal pain along with some nausea and vomiting. He also had some diarrhea. In the emergency room, he had labs done, which showed a potassium of 8. He was treated medically with IV calcium, insulin glucose, and albuterol treatment, and I send him up for emergent dialysis. PAST MEDICAL HISTORY: As listed above. Also includes seizure disorder. MEDICATIONS: His medications on admission noted in the admitting notes. REVIEW OF SYSTEMS: As noted above. FAMILY HISTORY: As noted in the electronic admission note. ALLERGIES: HE HAS MULTIPLE DRUG ALLERGIES LISTED IN ELECTRONIC MEDICAL RECORD. PHYSICAL EXAMINATION: VITAL SIGNS: Blood pressure 170/100 with a heart rate in the 70s. HEAD: Atraumatic and normocephalic. NECK: Supple. Mucous membranes are moist. LUNGS: Breath sounds bilaterally. CARDIAC: Regular rate and rhythm. ABDOMEN: Soft. EXTREMITIES: Left upper extremity with a bruit and thrill from his fistula. He has a port in the right chest wall. ABDOMEN: Soft, nontender. EXTREMITIES: Shows no edema. LABORATORY DATA: Sodium 135, potassium 8, chloride 101, bicarb 13, anion gap 29, BUN 68, creatinine 13.2, calcium 8.4, albumin 4.2, hemoglobin 10.3, hematocrit 29.4, white blood cell count 9.4, platelet count 151. IMPRESSION: A 28-YEAR-OLD END-STAGE RENAL DISEASE PATIENT ADMITTED TO THE HOSPITAL WITH BACK PAIN, ABDOMINAL PAIN, DIARRHEA, AND SOME NAUSEOUSNESS. 1. Severe hyperkalemia. This is due to having missed his dialysis treatment along with his metabolic acidosis causing potassium transcellular movement. He is getting treated medically emergently here in the emergency room. We will get him on emergent dialysis on a 1K bath. 2. Anion gap depressed serum bicarb. We will check a lactate level, although his blood pressure looks good, so it does not look like it is tissue hypoperfusion. He has been having diarrhea, and I suspect this is the culprit for a depressed bicarb. 3. Back and abdominal pain. Further evaluation may be necessary. We will correct his hyperkalemia. Some of his musculoskeletal aches and pains resolve. RECOMMENDATIONS: At this time include emergent dialysis on a 1K bath. Check post dialysis labs including a lactate level. Further evaluation pending his clinical course. We will follow the patient closely with the team. MD ANDRE Coelho/BALA / [phone]
[2023-12-10] MEDS: Morphine Sulfate 2 MG/ML CARTRIDGE IVPUSH ×2 (03:47→10:05)
[2023-12-10] MEDS: Acetaminophen 325 MG TABLET 650 MG PO ×2 (03:51→15:01)
[2023-12-10 06:27] LABS: Anion Gap 20 (12-20); Blood Urea Nitrogen 32 mg/dL (9-16); Calcium 8.6 mg/dL (8.4-10.2); Carbon Dioxide 21 mmol/L (22-29); Chloride 100 mmol/L (96-108); Creatinine Clr Calc Pharmacy 15.6; Estimated Glomerular Filt Rate 7; Glucose Random 76 mg/dL (60-115); Potassium 4.2 mmol/L (3.3-5.1); Sodium 137 mmol/L (135-145)
[2023-12-10 08:00] VITALS: BP 170/104; PULSE 75; RESP 17; TEMP 36.7; O2SAT 99
[2023-12-10] MEDS: Gabapentin 100 MG CAPSULE 200 MG PO (08:44)
[2023-12-10] MEDS: Sennosides/Docusate Sodium TABLET 2 TAB PO (08:44)
[2023-12-10] MEDS: Sertraline HCL 50 MG TABLET PO (08:45)
[2023-12-10] MEDS: carvediloL 25 MG TABLET PO (08:45)
[2023-12-10] MEDS: Atorvastatin Calcium 20 MG TABLET PO (08:45)
[2023-12-10] MEDS: levETIRAcetam 500 MG TABLET PO (08:45)
--- NOTE | 2023-12-10 09:48 | PM.DS ---
DS: Providers Provider Date of Service: 12/10/23 Date of admission: 12/09/23 17:23 Primary care physician: NEL Garcia Consults: 12/09/23 19:18 Consult to Nephrology Routine Consulting Provider: [facility] Reason for consultation: Hyperkalemia Has provider been notified: Yes DS: Diagnosis Discharge Diagnosis (1) Acute hyperkalemia: Status: Resolved (2) CKD (chronic kidney disease): Status: Inactive DS: Summary Hospital Course Hospital Course: Chief Complaint: Bodyache H 27-year-old male with a history of ADHD, hyperactivity, anemia, anxiety, depression, remote history of drug addiction with IV heroin use disorder , 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 He presents with he presents with no feeling well with leg, back, and diffuse body ache, nasue and diarrhea which he states is normal for him after dialysis but persisted this time. He did not attend dialysis today and is rather here. Labs work show potassium of 8. Treated with Albuterol, calcium gluconate, insulin with dextrose, lokelma and arrangement has been made for urgent dialysis today. Hospital course: He presented with bodyache, and found to have hyperkalemia of after missing dialysis. He underwent urgent dialysis in addition to medical management of potassium with Insulin, calcium gluconate, lokelma. Folowing dialysis, his potasssium returned to 4.2 and metabolic acidosis with bicab of 13 has is now 21. He will resume outpatient dialysis as usual Time Attestation Discharge Coordination Time (in mins): 35 Quality: Safe Use of Opioids Does Pt have an Active Cancer Diagnosis on the Problem List?: No Quality: Stroke Does the patient have a stroke diagnosis?: No Physical Exam Vital Signs: Vital Signs: Last Vital Signs Temp 98.0 F 12/10/23 08:00 Pulse 75 12/10/23 08:00 Resp 17 12/10/23 08:00 BP 170/104 H 12/10/23 08:00 Pulse Ox 99 12/10/23 08:00 O2 Del Method Room Air 12/10/23 08:00 BMI result Body Mass Index 29.8 General: AO X 3, no acute distress Resp: CTA bilateral CVS: S1,S2,RRR GI: +BS, NT, no distention Skin: No rash Neuro: motor grossly intact Psych: appropriate affect DS: Data Data Completed and Pending Completed studies during hospitalization [Text1]: Procedures Performance of Urinary Filtration, Intermittent, Less than 6 Hours Per Day (03/13/23) Transfusion of Nonautologous Red Blood Cells into Peripheral Vein, Percutaneous Approach (04/19/23) Labs on day of discharge: Laboratory Results - last 24 hr 12/09/23 12/09/23 12/09/23 14:57 15:00 16:33 WBC 9.4 RBC 3.10 L Hgb 10.3 L D Hct 29.4 L MCV 94.8 MCH 33.2 H MCHC 35.0 RDW 12.5 Plt Count 151 L MPV 9.7 Immature Gran % (Auto) 0.5 H Neut % (Auto) 79.1 H Lymph % (Auto) 10.6 L [place] % (Auto) 6.9 Eos % (Auto) 2.3 Baso % (Auto) 0.6 Lymph # (Auto) 1.0 L [place] # (Auto) 0.7 Eos # (Auto) 0.2 Baso # (Auto) 0.1 Abs Immat Gran (auto) 0.05 H Absolute Neuts (auto) 7.5 Absolute Nucleated RBC 0.000 Nucleated RBC % (auto) 0.0 Hold Purple Top VBG pH 7.33 VBG pCO2 26 VBG pO2 104 VBG HCO3 14 L VBG O2 Saturation 100.0 VBG Base Excess -9.8 Sodium 135 Potassium 8.0 H* Chloride 101 Carbon Dioxide 13 L Anion Gap 29 H BUN 68 H Creatinine 13.20 H* Estim Creat Clear Calc 10.0 Estimated GFR 4 POC Glucose 75 Random Glucose 82 Lactic Acid Calcium 8.4 D Magnesium 1.9 Total Bilirubin 0.4 AST 24 ALT 35 Alkaline Phosphatase 113 Total Protein 6.5 Albumin 4.2 Influenza Type A (PCR) NEGATIVE Influenza Type B (PCR) NEGATIVE RSV RNA Qual (PCR) NEGATIVE SARS-CoV-2 RNA (RT-PCR) NEGATIVE 12/09/23 12/09/23 12/10/23 17:24 21:54 05:52 WBC RBC Hgb Hct MCV MCH MCHC RDW Plt Count MPV Immature Gran % (Auto) Neut % (Auto) Lymph % (Auto) [place] % (Auto) Eos % (Auto) Baso % (Auto) Lymph # (Auto) [place] # (Auto) Eos # (Auto) Baso # (Auto) Abs Immat Gran (auto) Absolute Neuts (auto) Absolute Nucleated RBC Nucleated RBC % (auto) Hold Purple Top SEE NOTE VBG pH VBG pCO2 VBG pO2 VBG HCO3 VBG O2 Saturation VBG Base Excess Sodium 137 137 Potassium 3.3 D 4.2 D Chloride 101 100 Carbon Dioxide 23 21 L Anion Gap 16 20 BUN 22 H 32 H Creatinine 5.17 H* 8.51 H* Estim Creat Clear Calc 25.7 15.6 Estimated GFR 13 7 POC Glucose 134 H Random Glucose 98 76 Lactic Acid 0.5 Calcium 9.0 D 8.6 Magnesium Total Bilirubin AST ALT Alkaline Phosphatase Total Protein Albumin Influenza Type A (PCR) Influenza Type B (PCR) RSV RNA Qual (PCR) SARS-CoV-2 RNA (RT-PCR) Discharge Plan Discharge Anticipated Discharge Date/Time: 12/10/23 09:41 Patient Disposition: Home, Self-Care Discharge Diagnosis: Hyperkalemia Referrals: Pillo Trejo, COST MANAGER- [Primary Care Provider] - 1 Week Discharge Medications: Continued carvedilol 25 mg tablet 25 mg PO BID atorvastatin 20 mg tablet 20 mg PO DAILY ondansetron HCl 4 mg tablet 4 mg PO Q8H PRN (Reason: Nausea) sennosides-docusate sodium [Senna Plus] 8.6-50 mg tablet 2 tab PO BID acetaminophen 500 mg tablet 1,000 mg PO TID PRN (Reason: pain) clonidine 0.3 mg/24 hr patch weekly 1 patch topical FR@0900 gabapentin 100 mg capsule 200 mg PO BID polyethylene glycol 3350 17 gram/dose powder 17 g PO DAILY PRN (Reason: Constipation) nifedipine 60 mg tablet extended release 60 mg PO SUTUTHSA@0900 sertraline 50 mg tablet 50 mg PO DAILY lactulose 10 gram/15 mL solution 15 ml PO DAILY PRN (Reason: Constipation) sevelamer carbonate 800 mg tablet 2,400 mg PO TIDWMEAL hydrocortisone 0.5 % Cream 1 appl TOPICAL DAILY PRN (Reason: Rash) Rx Instructions: face ketoconazole 2 % Cream 1 appl TOPICAL DAILY PRN (Reason: Rash) Rx Instructions: face Renal Caps 1 mg capsule 1 cap PO BEDTIME levetiracetam 500 mg tablet 500 mg PO MOWEFR@5375 Rx Instructions: AFTER DIAYLSIS levetiracetam 1,000 mg tablet 500 mg PO BID losartan 50 mg tablet 50 mg PO BID Discharge Orders: Discharge Order (Routine); Ordered 12/10/23 Ordered By: Matthew Kevin Diet: Advance to usual diet Activity on Discharge: As tolerated Stand Alone Forms: Patient Portal Discharge page Print Language: Italian Care Plan Goals: Correction of high potassium Health Concerns: Hyperkalemia End-stage renal disease on dialysis Plan of Treatment: Resume dialysis as usual Continue taking your medications as before. Assessment: See above Discharge Date/Time: 12/10/23 16:58
[2023-12-10] MEDS: Losartan Potassium 50 MG TABLET PO (10:05)
--- NOTE | 2023-12-10 10:32 | MHC.CM.PN ---
IMM 12/09. Pt self-care, uses a cane, and lives at home with his parents. Pt goes to [facility] for HD M-W-F. Pt mother to transport home. HCP completed with pt, now on file. PCP: Dr. Pillo Trejo
[2023-12-10 11:15] VITALS: BP 157/103; PULSE 76; RESP 20; TEMP 36.6; O2SAT 97
[2023-12-10] MEDS: Ondansetron ODT 4 MG TAB.RAPDIS TRANSLINGU (15:02)
[2023-12-10 15:25] VITALS: BP 152/100; PULSE 82; RESP 20; TEMP 36.8; O2SAT 94
--- NOTE | 2023-12-10 15:50 | MHC.CM.PN ---
Pt is medically cleared for D/C home self-care with resumption of outpt HD at [facility], pts mother to transport him home.
== END 2023-12-10 16:58 | disposition home or self-care (01) | DRG 640 ==
LOC: HO.ED 16:54 → HO.EDOVER 17:41 → HO.IMC 12-10 00:22
PROVIDERS: Physician Assistant Medical; Admitting Provider Internal Medicine; Emergency Provider Emergency Medicine; PCP Nurse Practitioner Family; Visit Provider Internal Medicine
DX: E87.5 Hyperkalemia (principal); N18.6 End stage renal disease; I12.0 Hypertensive chronic kidney disease with stage 5 chronic kidney disease or end stage renal disease; M32.9 Systemic lupus erythematosus, unspecified; M32.14 Glomerular disease in systemic lupus erythematosus; E87.20 Acidosis, unspecified; Z99.2 Dependence on renal dialysis; E78.5 Hyperlipidemia, unspecified; K21.9 Gastro-esophageal reflux disease without esophagitis; Z91.158 Patient's noncompliance with renal dialysis for other reason; Z20.822 Contact with and (suspected) exposure to COVID-19; Z79.899 Other long term (current) drug therapy
CPT/HCPCS: 0241U; 36415; 70450; 71046; 80048; 80053; 82803; 82947; 83605; 83735; 85025; 90999; 93005; 94640; 99285; J0613; J1644; J2270; J2405

== ENCOUNTER → 2023-12-09 14:34 | Outpatient (BNV) | payer OTHER, SELFPAY | PROVIDERS: Admitting Provider Internal Medicine; Emergency Provider Emergency Medicine; PCP Nurse Practitioner Family; Visit Provider Internal Medicine | DX: R07.9 Chest pain, unspecified (principal) | CPT/HCPCS: 93010 ==

== ENCOUNTER → 2023-12-09 17:23 | Outpatient (BNV) | payer OTHER, SELFPAY | PROVIDERS: Admitting Provider Internal Medicine; Emergency Provider Emergency Medicine; PCP Nurse Practitioner Family; Visit Provider Internal Medicine | DX: E87.5 Hyperkalemia (principal); N18.9 Chronic kidney disease, unspecified | CPT/HCPCS: 99223; 99239 ==

== ENCOUNTER 2024-01-05 18:32 | Emergency (ER) | payer OTHER, SELFPAY ==
[2024-01-05 18:37] VITALS: BP 182/100; PULSE 100; O2SAT 95
[2024-01-05 18:44] VITALS: BP 152/100; PULSE 89; RESP 16; TEMP 36.6; O2SAT 99; BMI 31.5
--- NOTE | 2024-01-05 18:48 | ECG_ITS ---
Test Reason : NEAR SYNCOPE Blood Pressure : / mmHG Vent. Rate : 085 BPM Atrial Rate : 085 BPM P-R Int : 174 ms QRS Dur : 082 ms QT Int : 368 ms P-R-T Axes : 043 013 056 degrees QTc Int : 437 ms Normal sinus rhythm Normal ECG When compared with ECG of 09-DEC-2023 17:28, No significant change was found Referred By: Generic ED Physician Electronically Signed By:CHASE FERREIRA
--- NOTE | 2024-01-05 19:42 | ED.GENADULT ---
HPI - General Adult General Chief complaint: Weakness Stated complaint: LETHARGIC, HAS STAGE 5 KIDNEY FAILIURE,BACK ACHES Time Seen by Provider: 01/05/24 19:33 History of Present Illness HPI narrative: The patient is a 28-year-old male with multiple medical problems including chronic renal failure on dialysis. The patient receives dialysis on Mondays, Wednesdays, and Fridays. He therefore had dialysis 2 days ago on Saturday. Yesterday felt well. Today however he felt lightheaded as if he might pass out. He also had pain in his low back and he had a sense of numbness and tingling in his feet. He says that these symptoms are somewhat similar to symptoms he had 1 month ago when he had a potassium of 8.0. He has had no fever. Related Data Home Medications ?Medication ?Instructions ?Recorded ?Confirmed acetaminophen 500 mg tablet 1,000 mg PO TID PRN pain 03/13/23 12/09/23 atorvastatin 20 mg tablet 20 mg PO DAILY 03/13/23 12/09/23 carvedilol 25 mg tablet 25 mg PO BID 03/13/23 12/09/23 clonidine 0.3 mg/24 hr weekly 1 patch topical FR@0900 03/13/23 12/09/23 transdermal patch gabapentin 100 mg capsule 200 mg PO BID 03/13/23 12/09/23 hydrocortisone 0.5 % topical cream 1 appl topical DAILY PRN Rash 03/13/23 12/09/23 ketoconazole 2 % topical cream 1 appl topical DAILY PRN Rash 03/13/23 12/09/23 lactulose 10 gram/15 mL oral 15 ml PO DAILY PRN Constipation 03/13/23 12/09/23 solution nifedipine 60 mg tablet,extended 60 mg PO SUTUTHSA@0900 03/13/23 12/09/23 release ondansetron HCl 4 mg tablet 4 mg PO Q8H PRN Nausea 03/13/23 12/09/23 polyethylene glycol 3350 17 17 g PO DAILY PRN Constipation 03/13/23 12/09/23 gram/dose oral powder sennosides 8.6 mg-docusate sodium 2 tab PO BID 03/13/23 12/09/23 50 mg tablet (Senna Plus) sertraline 50 mg tablet 50 mg PO DAILY 03/13/23 12/09/23 sevelamer carbonate 800 mg tablet 2,400 mg PO TIDWMEAL 03/13/23 12/09/23 vitamin B complex and vitamin C 1 cap PO BEDTIME 04/19/23 12/09/23 no.20-folic acid 1 mg capsule (Renal Caps) levetiracetam 1,000 mg tablet 500 mg PO BID 06/14/23 12/09/23 levetiracetam 500 mg tablet 500 mg PO MOWEFR@1645 06/14/23 12/09/23 losartan 50 mg tablet 50 mg PO BID 12/09/23 12/09/23 Allergies Allergy/AdvReac Type Severity Reaction Status Date / Time ceftriaxone AdvReac Nausea and Verified 01/05/24 18:46 Vomiting lorazepam [From Ativan] AdvReac Shakiness Verified 01/05/24 18:46 metoclopramide [From Reglan] AdvReac Nausea Verified 01/05/24 18:46 Review of Systems Review of Systems: Yes all other systems are reviewed and are negative [facility] Past Medical History Medical History Drug abuse Normocytic anemia CKD (chronic kidney disease) Syncope Anemia HTN (hypertension) Seizure disorder ESRD on dialysis End stage chronic kidney disease Bilateral lower extremity pain Back pain Family History Family History Sister Substance use disorder Social History Social History Household Members: Family Household Members Other:: mom, step dad, sister and nephew Housing: House Do you presently have visiting nurse or other home services: No Alcohol intake: former Comment: Pt refusing bed alarm Patient Tobacco Use Status: Never used Tobacco e-Cigarette/Vaping Use: Never Used Substance Use Type: Marijuana Advance Directives: Yes Advance Directives on File: Yes Advance Directives Date on File: 12/10/20 service: No Cognitive needs: No Hearing needs: No Vision needs: No Physical Exam ED Vital Signs: Vital Signs - 24 hr 01/05/24 18:44 01/05/24 20:29 01/05/24 22:12 Temperature 97.9 F 98.4 F 98.4 F Pulse Rate 89 82 86 Respiratory Rate 16 12 20 Blood Pressure 152/100 H 152/102 H 145/97 H Pulse Oximetry 99 99 96 Oxygen Delivery Method Room Air Room Air Room Air 01/05/24 23:05 01/06/24 00:00 01/06/24 00:56 Temperature 98.5 F 98.1 F Pulse Rate 87 95 98 Respiratory Rate 16 17 20 Blood Pressure 150/92 H 154/98 H Pulse Oximetry 94 92 Oxygen Delivery Method Room Air Room Air 01/06/24 02:35 Temperature 98.6 F Pulse Rate 93 Respiratory Rate 18 Blood Pressure 152/96 H Pulse Oximetry 94 Oxygen Delivery Method Room Air BMI result Body Mass Index 31.5 Const Other: The patient is awake and alert. He is somewhat chronically ill-appearing 28-year-old. He does not appear obviously acutely ill. HENMT Other: Face is symmetrical, mucous membranes moist Eyes Other: Pupils are round equal, conjunctivae are clear, extraocular movements intact Neck Neck: Yes no JVD Resp Effort & Inspection: normal respiratory effort Auscultation: clear to auscultation bilaterally Cardio Rate: regular rate Rhythm: regular rhythm Heart sounds: S1 normal heart sound present and S2 normal heart sound present GI Other: Abdomen is soft and nontender Skin Other: Skin is dry and unremarkable Neuro Other: The patient is awake and alert with a normal mental status. He has good strength in his extremities. Extrem Other: Mild lower extremity edema Medications Administered Discontinued Medications Generic Name Dose Route Start Last Admin Trade Name Freq PRN Reason Stop Dose Admin Albuterol Sulfate 5 mg 01/05/24 22:41 01/05/24 23:02 Albuterol Sulfate (0.083%) 2.5 Mg/3 Ml Vial.Neb INHALE 01/05/24 22:42 5 mg ONCE ONE Administration Heparin Sodium (Porcine) 50 0 units 01/06/24 02:05 01/06/24 02:28 units/ Sodium Chloride 5 ml IVFLUSH 01/06/24 02:06 50 unit ONCE ONE Administration Calcium Gluconate 2 gm in 100 mls @ 400 mls/hr 01/05/24 22:41 01/05/24 23:58 Calcium Gluconate IV 01/05/24 22:55 400 mls/hr ONCE ONE Infusion Dextrose 250 mls @ 750 mls/hr 01/05/24 22:41 01/05/24 23:48 D10 IV Infused Q15M PRN Infusion per Hypoglycemia Standing Ord. Insulin Human Regular 10 unit 01/05/24 22:41 01/05/24 23:02 Insulin Regular, Human 100 Unit/Ml 3 Ml Vial IVPUSH 01/05/24 22:42 10 unit ONCE ONE Administration Morphine Sulfate 4 mg 01/05/24 20:37 01/05/24 20:48 Morphine Sulfate 4 Mg/Ml Cartridge IVPUSH 01/05/24 20:38 4 mg ONCE ONE Administration Protocol Morphine Sulfate 4 mg 01/05/24 23:34 01/06/24 00:03 Morphine Sulfate 4 Mg/Ml Cartridge IVPUSH 01/05/24 23:35 4 mg ONCE ONE Administration Protocol Ondansetron HCl 4 mg 01/05/24 20:57 01/05/24 21:07 Ondansetron Hcl 4 Mg/2 Ml Vial IVPUSH 01/05/24 20:58 4 mg ONCE ONE Administration Ondansetron HCl 4 mg 01/05/24 23:50 01/06/24 00:03 Ondansetron Hcl 4 Mg/2 Ml Vial IVPUSH 01/05/24 23:51 4 mg ONCE ONE Administration Sodium Zirconium Cyclosilicate 10 gm 01/05/24 22:45 01/05/24 23:02 Sodium Zirconium Cyclosilicate 10 Gm Powd.Pack PO 01/05/24 22:46 10 gm ONCE ONE Administration Sodium Zirconium Cyclosilicate 10 gm 01/05/24 23:38 01/06/24 00:03 Sodium Zirconium Cyclosilicate 10 Gm Powd.Pack PO 01/05/24 23:39 10 gm ONCE ONE Administration Medical Decision Making Medical Decision Making [facility] Narrative: The patient is a 28-year-old dialysis patient who presents with a sense of numbness and tingling in his feet that he feels is similar to symptoms he experienced a few weeks ago when he had a potassium of 8. He is due for dialysis tomorrow. His potassium today is 6.5. He was treated with calcium gluconate, albuterol, insulin and glucose, and Lokelma. He was hemodynamically stable. I discussed the case with the on-call communications media professor who felt that the patient would likely be stable until he could go to his usual outpatient dialysis. The patient seemed comfortable being discharged with a plan to go to dialysis later today. Lab Data 01/05/24 21:05 01/05/24 21:05 Labs: Lab Results 01/05/24 01/05/24 01/06/24 Range/Units 21:05 23:53 00:54 WBC 7.6 (4.8-10.8) X10*3/uL RBC 3.16 L (4.60-5.80) X10*6/uL Hgb 10.6 L (14.0-18.0) g/dl Hct 30.5 L (42.0-52.0) % MCV 96.5 (80.0-98.0) fL MCH 33.5 H (27.0-33.0) pg MCHC 34.8 (31.0-36.0) g/dl RDW 13.2 (11.0-16.0) % Plt Count 105 L D (160-400) X10*3/uL MPV 9.2 L (9.4-12.4) fL Immature Gran % (Auto) 0.3 (0.0-0.4) % Neut % (Auto) 75.5 H (45-73) % Lymph % (Auto) 12.0 L (20-40) % Alfalfa % (Auto) 9.3 (2-11) % Eos % (Auto) 2.4 (0-4) % Baso % (Auto) 0.5 (0-2) % Lymph # (Auto) 0.9 L (1.2-4.9) X10*3/uL Alfalfa # (Auto) 0.7 (0.1-1.2) X10*3/uL Eos # (Auto) 0.2 (0.0-0.4) X10*3/uL Baso # (Auto) 0.0 (0.0-0.2) X10*3/uL Abs Immat Gran (auto) 0.02 (0.00-0.03) X10*3/uL Absolute Neuts (auto) 5.8 (2.0-8.3) x10*3/uL Absolute Nucleated RBC 0.000 (0.0-0.012) X10*3/uL Nucleated RBC % (auto) 0.0 (0.0-0.2) /100WBC Sodium 141 (135-145) mmol/L Potassium 6.5 H* D (3.3-5.1) mmol/L Chloride 108 (96-108) mmol/L Carbon Dioxide 18 L (22-29) mmol/L Anion Gap 22 H (12-20) BUN 54 H (9-16) mg/dL Creatinine 11.40 H* (0.5-1.4) mg/dL Estim Creat Clear Calc 11.9 Estimated GFR 5 POC Glucose 119 H 102 (60-115) mg/dL Random Glucose 87 (60-115) mg/dL Calcium 8.2 L (8.4-10.2) mg/dL Total Bilirubin 0.8 (0.0-1.0) mg/dL AST 15 (5-37) U/L ALT 19 (0-40) U/L Alkaline Phosphatase 84 (39-117) U/L Total Protein 6.2 L (6.5-8.0) g/dL Albumin 4.1 (3.5-5.0) g/dL 01/06/24 Range/Units 01:21 WBC (4.8-10.8) X10*3/uL RBC (4.60-5.80) X10*6/uL Hgb (14.0-18.0) g/dl Hct (42.0-52.0) % MCV (80.0-98.0) fL MCH (27.0-33.0) pg MCHC (31.0-36.0) g/dl RDW (11.0-16.0) % Plt Count (160-400) X10*3/uL MPV (9.4-12.4) fL Immature Gran % (Auto) (0.0-0.4) % Neut % (Auto) (45-73) % Lymph % (Auto) (20-40) % Alfalfa % (Auto) (2-11) % Eos % (Auto) (0-4) % Baso % (Auto) (0-2) % Lymph # (Auto) (1.2-4.9) X10*3/uL Alfalfa # (Auto) (0.1-1.2) X10*3/uL Eos # (Auto) (0.0-0.4) X10*3/uL Baso # (Auto) (0.0-0.2) X10*3/uL Abs Immat Gran (auto) (0.00-0.03) X10*3/uL Absolute Neuts (auto) (2.0-8.3) x10*3/uL Absolute Nucleated RBC (0.0-0.012) X10*3/uL Nucleated RBC % (auto) (0.0-0.2) /100WBC Sodium (135-145) mmol/L Potassium (3.3-5.1) mmol/L Chloride (96-108) mmol/L Carbon Dioxide (22-29) mmol/L Anion Gap (12-20) BUN (9-16) mg/dL Creatinine (0.5-1.4) mg/dL Estim Creat Clear Calc Estimated GFR POC Glucose 103 (60-115) mg/dL Random Glucose (60-115) mg/dL Calcium (8.4-10.2) mg/dL Total Bilirubin (0.0-1.0) mg/dL AST (5-37) U/L ALT (0-40) U/L Alkaline Phosphatase (39-117) U/L Total Protein (6.5-8.0) g/dL Albumin (3.5-5.0) g/dL Discharge Plan Discharge Clinical Impression: Acute hyperkalemia Patient Disposition: Home, Self-Care Additional Instructions: Your potassium today was somewhat elevated at 6.5. You received medications in the emergency room to help bring your potassium down. I believe the medications you have received in the emergency room tonight will keep your potassium low enough for you to be safe until you have dialysis at your usual dialysis center later today. Therefore please rest and take it easy tonight and keep your normal Saturday dialysis appointment. Follow up with your regular doctor and your regular communications media professor. Return to the emergency room if worse. Prescriptions: No Action carvedilol 25 mg tablet 25 mg PO BID atorvastatin 20 mg tablet 20 mg PO DAILY ondansetron HCl 4 mg tablet 4 mg PO Q8H PRN (Reason: Nausea) sennosides-docusate sodium [Senna Plus] 8.6-50 mg tablet 2 tab PO BID acetaminophen 500 mg tablet 1,000 mg PO TID PRN (Reason: pain) clonidine 0.3 mg/24 hr patch weekly 1 patch topical FR@0900 gabapentin 100 mg capsule 200 mg PO BID polyethylene glycol 3350 17 gram/dose powder 17 g PO DAILY PRN (Reason: Constipation) nifedipine 60 mg tablet extended release 60 mg PO SUTUTHSA@0900 sertraline 50 mg tablet 50 mg PO DAILY lactulose 10 gram/15 mL solution 15 ml PO DAILY PRN (Reason: Constipation) sevelamer carbonate 800 mg tablet 2,400 mg PO TIDWMEAL hydrocortisone 0.5 % Cream 1 appl TOPICAL DAILY PRN (Reason: Rash) Rx Instructions: face ketoconazole 2 % Cream 1 appl TOPICAL DAILY PRN (Reason: Rash) Rx Instructions: face Renal Caps 1 mg capsule 1 cap PO BEDTIME levetiracetam 500 mg tablet 500 mg PO MOWEFR@1645 Rx Instructions: AFTER DIAYLSIS levetiracetam 1,000 mg tablet 500 mg PO BID losartan 50 mg tablet 50 mg PO BID Referrals: Jeffery Hicks MD [Physician] - (Hyperkalemia) Pillo Trejo FNP-BECKI [Primary Care Provider] - (Hyperkalemia) Interventions: ED Discharge Assessment Last Done: 01/06/24 02:35 Discharge Date/Time: 01/06/24 02:39 Print Language: British
[2024-01-05 20:29] VITALS: BP 152/102; PULSE 82; RESP 12; TEMP 36.9; O2SAT 99
[2024-01-05] MEDS: Morphine Sulfate 4 MG/ML CARTRIDGE IVPUSH (20:48)
[2024-01-05] MEDS: ondansetron HCL 4 MG/2 ML VIAL IVPUSH (21:07)
[2024-01-05 21:10] LABS: MANUAL DIFF FLAG NO
[2024-01-05 21:12] LABS: Basophils Percent Auto 0.5 % (0-2); Eosinophils Absolute Auto 0.2 X10*3/uL (0.0-0.4); Eosinophils Percent Auto 2.4 % (0-4); Hematocrit 30.5 % (42.0-52.0); Hemoglobin 10.6 g/dl (14.0-18.0); Imm Gran Abs Auto 0.02 X10*3/uL (0.00-0.03); Imm Gran Pct Auto 0.3 % (0.0-0.4); Lymphocytes Absolute Auto 0.9 X10*3/uL (1.2-4.9); Mean Corpuscular HGB Conc 34.8 g/dl (31.0-36.0); Mean Corpuscular Hemoglobin 33.5 pg (27.0-33.0); Mean Corpuscular Volume 96.5 fL (80.0-98.0); Mean Platelet Volume 9.2 fL (9.4-12.4); Monocytes Absolute Auto 0.7 X10*3/uL (0.1-1.2); Monocytes Percent Auto 9.3 % (2-11); Neutrophils Absolute Auto 5.8 x10*3/uL (2.0-8.3); Neutrophils Percent Auto 75.5 % (45-73); Platelet Count 105 X10*3/uL (160-400); Red Blood Count 3.16 X10*6/uL (4.60-5.80); Red Cell Distribution Width 13.2 % (11.0-16.0); White Blood Count 7.6 X10*3/uL (4.8-10.8)
[2024-01-05 22:06] LABS: Alanine Aminotransferase 19 U/L (0-40); Albumin Level 4.1 g/dL (3.5-5.0); Alkaline Phosphatase 84 U/L (39-117); Anion Gap 22 (12-20); Aspartate Amino Transferase 15 U/L (5-37); Bilirubin Total 0.8 mg/dL (0.0-1.0); Blood Urea Nitrogen 54 mg/dL (9-16); Calcium 8.2 mg/dL (8.4-10.2); Carbon Dioxide 18 mmol/L (22-29); Chloride 108 mmol/L (96-108); Creatinine Clr Calc Pharmacy 11.9; Estimated Glomerular Filt Rate 5; Glucose Random 87 mg/dL (60-115); Potassium 6.5 mmol/L (3.3-5.1); Sodium 141 mmol/L (135-145); Total Protein 6.2 g/dL (6.5-8.0)
[2024-01-05 22:12] VITALS: BP 145/97; PULSE 86; RESP 20; TEMP 36.9; O2SAT 96
[2024-01-05] MEDS: Calcium Gluconate/NaCl,Iso-Osm 2 GM/100 ML PLAST..BAG IV (23:01)
[2024-01-05] MEDS: Albuterol Sulfate (0.083%) 2.5 MG/3 ML VIAL.NEB 5 MG INHALE (23:02)
[2024-01-05] MEDS: Sodium Zirconium Cyclosilicate 10 GM POWD.PACK PO (23:02)
[2024-01-05] MEDS: Insulin Regular, Human 100 UNIT/ML 3 ML VIAL 10 UNIT IVPUSH (23:02)
[2024-01-05 23:05] VITALS: PULSE 87; RESP 16; O2SAT 94
[2024-01-05] MEDS: Dextrose 10 % 250 ML 750 ML IV (23:28)
[2024-01-05 23:58] LABS: Glucose, Whole Blood 119 mg/dL (60-115)
[2024-01-06] VITALS: BP 150/92; PULSE 95; RESP 17; TEMP 36.9; O2SAT 94
[2024-01-06] MEDS: Morphine Sulfate 4 MG/ML CARTRIDGE IVPUSH (00:03)
[2024-01-06] MEDS: Sodium Zirconium Cyclosilicate 10 GM POWD.PACK PO (00:03)
[2024-01-06] MEDS: ondansetron HCL 4 MG/2 ML VIAL IVPUSH (00:03)
[2024-01-06 00:56] VITALS: BP 154/98; PULSE 98; RESP 20; TEMP 36.7; O2SAT 92
[2024-01-06 00:59] LABS: Glucose, Whole Blood 102 mg/dL (60-115)
[2024-01-06 01:24] LABS: Glucose, Whole Blood 103 mg/dL (60-115)
[2024-01-06] MEDS: Heparin Sodium,Porcine Flush 50 UNITS, 0.9 % Sodium Chloride Flush 5 ML IVFLUSH (02:28)
[2024-01-06 02:35] VITALS: BP 152/96; PULSE 93; RESP 18; TEMP 37; O2SAT 94
== END 2024-01-06 02:39 | disposition home or self-care (01) ==
PROVIDERS: Emergency Provider Emergency Medicine; PCP Nurse Practitioner Family
DX: E87.5 Hyperkalemia (principal); I12.0 Hypertensive chronic kidney disease with stage 5 chronic kidney disease or end stage renal disease; N18.6 End stage renal disease; Z99.2 Dependence on renal dialysis
CPT/HCPCS: 36415; 80053; 82947; 85025; 93005; 94640; 96365; 96367; 96375; 96376; 99285; J0613; J1642; J2270; J2405

== ENCOUNTER → 2024-01-05 18:48 | Outpatient (BNV) | payer OTHER, SELFPAY | PROVIDERS: Emergency Provider Emergency Medicine; PCP Nurse Practitioner Family; Visit Provider Internal Medicine | DX: R55 Syncope and collapse (principal) | CPT/HCPCS: 93010 ==

== ENCOUNTER 2024-02-21 17:40 | Emergency (ER) | payer OTHER, SELFPAY ==
--- NOTE | ~2024-02-21 | XR_ITS ---
EXAMINATION: XR CHEST CLINICAL INFORMATION: Chest pain. COMPARISON: Chest radiographs dated 12/09/2023. TECHNIQUE: 2 frontal views of the chest were obtained. FINDINGS: No significant abnormality is noted involving the heart, lungs, mediastinum, bony thorax or soft tissues. A right internal jugular Port-A-Cath device is noted. XR/XR chest 1V IMPRESSION: Unremarkable examination.
[2024-02-21 17:51] VITALS: BP 148/97; PULSE 83; PULSE 94; RESP 17; TEMP 36.9; O2SAT 96; O2SAT 97; BMI 29.8
--- NOTE | 2024-02-21 17:56 | ECG_ITS ---
Test Reason : CP Blood Pressure : / mmHG Vent. Rate : 073 BPM Atrial Rate : 073 BPM P-R Int : 188 ms QRS Dur : 088 ms QT Int : 392 ms P-R-T Axes : 061 041 090 degrees QTc Int : 431 ms Normal sinus rhythm Nonspecific T wave abnormality Borderline ECG When compared with ECG of 05-JAN-2024 18:49, No significant change was found Referred By: Generic ED Physician Electronically Signed By:CHASE FERREIRA
--- NOTE | 2024-02-21 19:13 | ED_ITS ---
HPI - General Adult General Chief complaint: Syncope Stated complaint: chest pain, syncopal ep. Missed dialysis on sat Time Seen by Provider: 02/21/24 19:05 Source: patient Mode of arrival: EMS Limitations: no limitations History of Present Illness HPI narrative: This is a 28-year-old man with a past medical history of hypertension, ESRD on dialysis, anxiety/depression, ADHD, history of IV heroin use (sober proximally 4 years), glomerular nephritis, migraines without auras, osteomyelitis of the cervical spine, sleep apnea and lupus who presents via EMS for evaluation of syncope. He states that is he finished have his dialysis session today and went home. He reports that he has been sick for the last week with 2-3 episodes of nonbloody diarrhea per day. He reports associated nausea and vomiting. He states no hematemesis. He states no melena or hematochezia. He states that he was lying in bed for approximately 20-30 minutes. Patient reports sitting up and subsequently feeling lightheaded. Patient reports that he had a pre have subtle loss of conscious. Patient reports waking up with his family helping him up. He states no confusion following this episode. He states no tongue biting or urinary incontinence. He reports having sensation of chest pain following this. He states no recent fevers, cough, chills or difficulty breathing. He states no abdominal pain. He reports some nausea at this time. He reports similar prior episodes of syncope. He states no exertional chest pain or chest pain with syncope. He states no back pain. He states no extremity weakness or paresthesias. He reports pain in both of his legs. Patient states no family history of sudden cardiac . Related Data Home Medications ?Medication ?Instructions ?Recorded ?Confirmed acetaminophen 500 mg tablet 1,000 mg PO TID PRN pain 03/13/23 12/09/23 atorvastatin 20 mg tablet 20 mg PO DAILY 03/13/23 12/09/23 carvedilol 25 mg tablet 25 mg PO BID 03/13/23 12/09/23 clonidine 0.3 mg/24 hr weekly 1 patch topical FR@0900 03/13/23 12/09/23 transdermal patch gabapentin 100 mg capsule 200 mg PO BID 03/13/23 12/09/23 hydrocortisone 0.5 % topical cream 1 appl topical DAILY PRN Rash 03/13/23 12/09/23 ketoconazole 2 % topical cream 1 appl topical DAILY PRN Rash 03/13/23 12/09/23 lactulose 10 gram/15 mL oral 15 ml PO DAILY PRN Constipation 03/13/23 12/09/23 solution nifedipine 60 mg tablet,extended 60 mg PO SUTUTHSA@0900 03/13/23 12/09/23 release ondansetron HCl 4 mg tablet 4 mg PO Q8H PRN Nausea 03/13/23 12/09/23 polyethylene glycol 3350 17 17 g PO DAILY PRN Constipation 03/13/23 12/09/23 gram/dose oral powder sennosides 8.6 mg-docusate sodium 2 tab PO BID 03/13/23 12/09/23 50 mg tablet (Senna Plus) sertraline 50 mg tablet 50 mg PO DAILY 03/13/23 12/09/23 sevelamer carbonate 800 mg tablet 2,400 mg PO TIDWMEAL 03/13/23 12/09/23 vitamin B complex and vitamin C 1 cap PO BEDTIME 04/19/23 12/09/23 no.20-folic acid 1 mg capsule (Renal Caps) levetiracetam 1,000 mg tablet 500 mg PO BID 06/14/23 12/09/23 levetiracetam 500 mg tablet 500 mg PO MOWEFR@1645 06/14/23 12/09/23 losartan 50 mg tablet 50 mg PO BID 12/09/23 12/09/23 Allergies Allergy/AdvReac Type Severity Reaction Status Date / Time ceftriaxone AdvReac Nausea and Verified 02/21/24 17:54 Vomiting lorazepam [From Ativan] AdvReac Shakiness Verified 02/21/24 17:54 metoclopramide [From Reglan] AdvReac Nausea Verified 02/21/24 17:54 Review of Systems 2 Review of Systems: ROS as per HPI [facility] Past Medical History Medical History Drug abuse Normocytic anemia CKD (chronic kidney disease) Syncope Anemia HTN (hypertension) Seizure disorder ESRD on dialysis End stage chronic kidney disease Bilateral lower extremity pain Back pain Family History Family History Sister Substance use disorder Social History Social History Household Members: Family Household Members Other:: mom, step dad, sister and nephew Housing: House Do you presently have visiting nurse or other home services: No Alcohol intake: former Comment: Pt refusing bed alarm Patient Tobacco Use Status: Never used Tobacco Smoked in Last 30 Days: No e-Cigarette/Vaping Use: Never Used Use of substances other than those prescribed or required for medical reasons: Yes Substance Use Type: Marijuana Advance Directives: Yes Advance Directives on File: Yes Advance Directives Date on File: 12/10/20 Do you have a plan to hurt others: No Plan service: No Cognitive needs: No Hearing needs: No Vision needs: No Physical Exam ED Vital Signs: Vital Signs - 24 hr 02/21/24 17:51 02/21/24 20:27 Temperature 98.5 F 97.8 F Pulse Rate 83 74 Respiratory Rate 17 18 Blood Pressure 148/97 H 145/92 H Pulse Oximetry 96 96 Oxygen Delivery Method Room Air Room Air BMI result Body Mass Index 29.8 Gen: NAD, AOx3 HEENT: NCAT, EOMI, normal conjunctiva, no lingual lacerations CV: RRR Pulm: CTAB, no increased work of breathing MSK: Palpable thrill to left upper extremity GI: Soft, NTND, no rebound, guarding or rigidity Neuro: Grossly non focal Medications Administered Discontinued Medications Generic Name Dose Route Start Last Admin Trade Name Freq PRN Reason Stop Dose Admin Ketorolac Tromethamine 15 mg 02/21/24 19:13 02/21/24 20:00 Ketorolac Tromethamine 15 Mg/Ml Vial IVPUSH 02/21/24 19:14 15 mg ONCE ONE Administration Ondansetron HCl 4 mg 02/21/24 19:13 02/21/24 20:00 Ondansetron Hcl 4 Mg/2 Ml Vial IVPUSH 02/21/24 19:14 4 mg ONCE ONE Administration Medical Decision Making Medical Decision Making MDM Narrative: Differential diagnosis includes, but is not limited to vasovagal syncope, ACS, chest pain, electrolyte abnormality Patient is afebrile and hemodynamically stable on room air. Exam is benign and reassuring. He is provided Zofran and Toradol for supportive care. I reviewed and interpreted labs, which is notable for a troponin of 31.4. Creatinine is elevated at 10.9, patient is a known dialysis patient. Patient is at approximate baseline anemia and thrombocytopenia levels. He has no evidence of bleeding/traumatic injury on exam or history of bleeding. I have independently reviewed and interpreted EKG and chest x-ray, which is unremarkable for any acute findings. EKG shows no ischemic changes. Given prodrome of lightheadedness, transient loss of consciousness with return to baseline mentation I do have high clinical suspicion for vasovagal syncope. Patient is offered Tylenol for additional analgesia, but he declines. Care is transitioned to Dr. Saenz at 2108 with disposition pending 2nd troponin and patient re-evaluation. Admission/Observation Consideration of admission/observation: Escalation of care including admission/observation considered Lab Data MDM Lab Attestation statement: I reviewed the patient's lab results. 02/21/24 19:59 02/21/24 19:59 Labs: Lab Results 02/21/24 Range/Units 19:59 WBC 3.6 L (4.8-10.8) X10*3/uL RBC 2.65 L (4.60-5.80) X10*6/uL Hgb 8.9 L (14.0-18.0) g/dl Hct 25.4 L (42.0-52.0) % MCV 95.8 (80.0-98.0) fL MCH 33.6 H (27.0-33.0) pg MCHC 35.0 (31.0-36.0) g/dl RDW 13.0 (11.0-16.0) % Plt Count 105 L (160-400) X10*3/uL MPV 9.3 L (9.4-12.4) fL Immature Gran % (Auto) 0.3 (0.0-0.4) % Neut % (Auto) 65.6 (45-73) % Lymph % (Auto) 17.2 L (20-40) % Mccracken % (Auto) 14.4 H (2-11) % Eos % (Auto) 2.2 (0-4) % Baso % (Auto) 0.3 (0-2) % Lymph # (Auto) 0.6 L (1.2-4.9) X10*3/uL [place]racken # (Auto) 0.5 (0.1-1.2) X10*3/uL Eos # (Auto) 0.1 (0.0-0.4) X10*3/uL Baso # (Auto) 0.0 (0.0-0.2) X10*3/uL Abs Immat Gran (auto) 0.01 (0.00-0.03) X10*3/uL Absolute Neuts (auto) 2.4 (2.0-8.3) x10*3/uL Absolute Nucleated RBC 0.000 (0.0-0.012) X10*3/uL Nucleated RBC % (auto) 0.0 (0.0-0.2) /100WBC Sodium 148 H (135-145) mmol/L Potassium 4.7 D (3.3-5.1) mmol/L Chloride 109 H (96-108) mmol/L Carbon Dioxide 26 (22-29) mmol/L Anion Gap 18 (12-20) BUN 36 H (9-16) mg/dL Creatinine 10.99 H* (0.5-1.4) mg/dL Estim Creat Clear Calc 12.1 Estimated GFR 6 Random Glucose 95 (60-115) mg/dL Calcium 8.8 D (8.4-10.2) mg/dL Troponin I High Sens 31.4 (<3.5-35.0) ng/L Independent Interpretation I performed an independent interpretation of an: EKG and Plain X-Ray Interpretation: EKG shows sinus rhythm at 73 beats per minute, normal axis, DE 188, QRS 80, QTC 431, no STEMI, no Brugada morphology, no delta wave, no epsilon wave. Chest x- ray demonstrates no focal consolidation, widened mediastinum or pneumothorax Discharge Plan Discharge Clinical Impression: Syncope, Chest pain Patient Disposition: Still a Patient Prescriptions: No Action carvedilol 25 mg tablet 25 mg PO BID atorvastatin 20 mg tablet 20 mg PO DAILY ondansetron HCl 4 mg tablet 4 mg PO Q8H PRN (Reason: Nausea) sennosides-docusate sodium [Senna Plus] 8.6-50 mg tablet 2 tab PO BID acetaminophen 500 mg tablet 1,000 mg PO TID PRN (Reason: pain) clonidine 0.3 mg/24 hr patch weekly 1 patch topical FR@0900 gabapentin 100 mg capsule 200 mg PO BID polyethylene glycol 3350 17 gram/dose powder 17 g PO DAILY PRN (Reason: Constipation) nifedipine 60 mg tablet extended release 60 mg PO SUTUTHSA@0900 sertraline 50 mg tablet 50 mg PO DAILY lactulose 10 gram/15 mL solution 15 ml PO DAILY PRN (Reason: Constipation) sevelamer carbonate 800 mg tablet 2,400 mg PO TIDWMEAL hydrocortisone 0.5 % Cream 1 appl TOPICAL DAILY PRN (Reason: Rash) Rx Instructions: face ketoconazole 2 % Cream 1 appl TOPICAL DAILY PRN (Reason: Rash) Rx Instructions: face Renal Caps 1 mg capsule 1 cap PO BEDTIME levetiracetam 500 mg tablet 500 mg PO MOWEFR@1645 Rx Instructions: AFTER DIAYLSIS levetiracetam 1,000 mg tablet 500 mg PO BID losartan 50 mg tablet 50 mg PO BID Print Language: Lithuanian
[2024-02-21] MEDS: ondansetron HCL 4 MG/2 ML VIAL IVPUSH (20:00)
[2024-02-21] MEDS: Ketorolac Tromethamine 15 MG/ML VIAL IVPUSH (20:00)
[2024-02-21 20:06] LABS: MANUAL DIFF FLAG NO
[2024-02-21 20:08] LABS: Basophils Percent Auto 0.3 % (0-2); Eosinophils Absolute Auto 0.1 X10*3/uL (0.0-0.4); Eosinophils Percent Auto 2.2 % (0-4); Hematocrit 25.4 % (42.0-52.0); Hemoglobin 8.9 g/dl (14.0-18.0); Imm Gran Abs Auto 0.01 X10*3/uL (0.00-0.03); Imm Gran Pct Auto 0.3 % (0.0-0.4); Lymphocytes Absolute Auto 0.6 X10*3/uL (1.2-4.9); Lymphocytes Percent Auto 17.2 % (20-40); Mean Corpuscular Hemoglobin 33.6 pg (27.0-33.0); Mean Corpuscular Volume 95.8 fL (80.0-98.0); Mean Platelet Volume 9.3 fL (9.4-12.4); Monocytes Absolute Auto 0.5 X10*3/uL (0.1-1.2); Monocytes Percent Auto 14.4 % (2-11); Neutrophils Absolute Auto 2.4 x10*3/uL (2.0-8.3); Neutrophils Percent Auto 65.6 % (45-73); Platelet Count 105 X10*3/uL (160-400); Red Blood Count 2.65 X10*6/uL (4.60-5.80); White Blood Count 3.6 X10*3/uL (4.8-10.8)
[2024-02-21 20:27] VITALS: BP 145/92; PULSE 74; RESP 18; TEMP 36.6; O2SAT 96
[2024-02-21 20:34] LABS: Troponin-I High Sensitivity 31.4 ng/L (<3.5-35.0)
[2024-02-21 20:36] LABS: Anion Gap 18 (12-20); Blood Urea Nitrogen 36 mg/dL (9-16); Calcium 8.8 mg/dL (8.4-10.2); Carbon Dioxide 26 mmol/L (22-29); Chloride 109 mmol/L (96-108); Creatinine Clr Calc Pharmacy 12.1; Estimated Glomerular Filt Rate 6; Glucose Random 95 mg/dL (60-115); Potassium 4.7 mmol/L (3.3-5.1); Sodium 148 mmol/L (135-145)
[2024-02-21 21:40] VITALS: BP 146/100; PULSE 77; RESP 18; TEMP 36.6; O2SAT 97
--- NOTE | 2024-02-21 21:41 | MHC.EDTECH ---
Late Entry,This tech took over care of patient at 1900,hourly rounds and vitals were completed,call navarro in reach
--- NOTE | 2024-02-21 21:42 | MHC.EDTECH ---
Hourly rounds and vitals completed,BP elevated 146/100 RN was made aware.
[2024-02-21] MEDS: Ondansetron ODT 4 MG TAB.RAPDIS TRANSLINGU (22:19)
[2024-02-21 22:53] LABS: Troponin-I High Sensitivity 30.1 ng/L (<3.5-35.0)
[2024-02-21 23:09] VITALS: BP 154/98; PULSE 63; RESP 18; TEMP 36.7; O2SAT 96
--- NOTE | 2024-02-21 23:10 | MHC.EDTECH ---
Hourly rounds and vitals completed,patient is waiting to be discharged at this time.
[2024-02-22 00:25] VITALS: BP 154/98; PULSE 63; RESP 18; TEMP 36.7; O2SAT 96
== END 2024-02-22 00:26 | disposition home or self-care (01) ==
PROVIDERS: Emergency Provider Emergency Medicine; PCP Nurse Practitioner Family
DX: R55 Syncope and collapse (principal); R07.9 Chest pain, unspecified; I12.0 Hypertensive chronic kidney disease with stage 5 chronic kidney disease or end stage renal disease; N18.6 End stage renal disease; Z99.2 Dependence on renal dialysis
CPT/HCPCS: 36415; 71045; 80048; 84484; 85025; 93005; 96374; 96375; 99284; 99285; J1885; J2405

== ENCOUNTER → 2024-02-21 17:56 | Outpatient (BNV) | payer OTHER, SELFPAY | PROVIDERS: Emergency Provider Emergency Medicine; PCP Nurse Practitioner Family; Visit Provider Internal Medicine | DX: R07.9 Chest pain, unspecified (principal) | CPT/HCPCS: 93010 ==

== ENCOUNTER 2024-02-24 10:07 | Emergency (ER) | payer OTHER, SELFPAY ==
--- NOTE | ~2024-02-24 | CT_ITS ---
EXAMINATION: CT HEAD WITHOUT CONTRAST CLINICAL INFORMATION: Seizure, Mechanical fall. Blunt head trauma without loss of consciousness, significant head injury and posttraumatic headache. COMPARISON: CT scan of brain on. 12/10/2023, MRI brain on 03/15/2023 TECHNIQUE: Contiguous axial imaging was performed from the skull base to vertex without intravenous administration of contrast. This CT examination was performed using dose optimization techniques as appropriate, variously including the following: *Automated exposure control *Adjustment of mA and/or kV according to patient size (this includes techniques or standardized protocols for targeted exams where dose is matched to indication/reason for exam; i.e. extremities or head) *Use of iterative reconstruction technique DLP: 714 mGy-cm FINDINGS: Ventricles, sulci and cisterns are normal. Persistent 2 focal calcifications are seen in inferior right frontal lobe deep white matter measuring up to 4 mm in diameter There is no midline shift, no abnormal intra- or extra- axial fluid accumulation. Bruce and white matter differentiation is normal. Bone window images show no evidence of skull fracture. CT/CT head/brain wo IV con IMPRESSION: 1. Unchanged inferior right frontal deep white matter dystrophic calcifications, could be associated with developmental venous anomaly found on MRI of brain. 2. No intracranial hemorrhage or skull fracture is seen. 3. No evidence of space occupying lesion could be found. 4. The current plain CT scan of the brain shows no diagnostic evidence of acute cerebral infarction.
--- NOTE | ~2024-02-24 | CT_ITS ---
EXAMINATION: CT CERVICAL SPINE WITHOUT CONTRAST CLINICAL INFORMATION: Seizure, Mechanical fall. Blunt head trauma without loss of consciousness, significant head injury and posttraumatic headache. COMPARISON: CT scan of cervical spine on 03/22/2023 TECHNIQUE: Multiple 3.0 and 0.6 mm axial images were obtained from base of skull to T1 levels without IV contrast enhancement. Sagittal and coronal 2.0 mm bone window images were reconstructed from axial image data. This CT examination was performed using dose optimization techniques as appropriate, variously including the following: *Automated exposure control *Adjustment of mA and/or kV according to patient size (this includes techniques or standardized protocols for targeted exams where dose is matched to indication/reason for exam; i.e. extremities or head) *Use of iterative reconstruction technique DLP: 476 mGy-cm FINDINGS: C1/C2: Bony structures are intact with normal alignment. There is no spinal stenosis. C2/C3: Bony structures are intact with anterior C2 on C3 displacement by 0.20 cm. There is no spinal stenosis. Bilateral C2/C3 neuroforamina are patent. Bilateral apophyseal joints are intact with normal alignment. C3/C4: Bony structures are intact with normal alignment. There is severe loss of intervertebral disc height. Sclerotic and erosive vertebral endplate changes are seen at C3-C4 junction. There is no spinal stenosis. Bilateral C3/C4 neuroforamina are patent. Bilateral apophyseal joints are intact with normal alignment. C4/C5: Bony structures are intact with mild anterior C4 on C5 displacement by 0.16 cm. There is no spinal stenosis. Bilateral C4/C5 neuroforamina are patent. Bilateral apophyseal joints are intact with normal alignment. C5/C6: Bony structures are intact with normal alignment. There is no spinal stenosis. Bilateral C5/C6 neuroforamina are patent. Bilateral apophyseal joints are intact with normal alignment. C6/C7: Bony structures are intact with normal alignment. There is no spinal stenosis. Bilateral C6/C7 neuroforamina are patent. Bilateral apophyseal joints are intact with normal alignment. C7/T1: Bony structures are intact with normal alignment. There is no spinal stenosis. Bilateral C7/T1 neuroforamina are patent. Bilateral apophyseal joints are intact with normal alignment. CT/CT cervical spine wo IV con IMPRESSION: 1. Unchanged, No evidence of acute fracture or dislocation. 2. Unchanged advanced degenerative disc disease at C3-C4 junction. 3. Unchanged grade 1 C2-C3 and C4-C5 anterolisthesis.
[2024-02-24 10:16] VITALS: BP 165/109; BP 170/90; PULSE 85; PULSE 87; RESP 13; TEMP 36.8; O2SAT 100; O2SAT 98; BMI 31.9
--- NOTE | 2024-02-24 10:20 | ECG_ITS ---
Test Reason : cp,n/v/d Blood Pressure : / mmHG Vent. Rate : 083 BPM Atrial Rate : 083 BPM P-R Int : 186 ms QRS Dur : 090 ms QT Int : 374 ms P-R-T Axes : 057 031 076 degrees QTc Int : 439 ms Normal sinus rhythm Nonspecific T wave abnormality Abnormal ECG When compared with ECG of 21-FEB-2024 18:03, No significant change was found Referred By: Generic ED Physician Electronically Signed By:MAGALY OLMOS MD
--- NOTE | 2024-02-24 10:24 | ED.GENADULT ---
HPI - General Adult General Chief complaint: Nausea/Vomiting/Diarrhea Stated complaint: CP,N/V/D,HYPERTENSIVE PER EMS Time Seen by Provider: 02/24/24 10:23 Source: patient and EMS Mode of arrival: EMS Limitations: no limitations History of Present Illness ED Provider: Dr. Salmeron HPI narrative: Patient seen in the ED 3 days ago for Chest pain with diarrhea. He did not get dialysis on Saturday and now is back for the same complaints, patient requesting pain medication Onset (ago): day(s) Severity: mild Pain Consistency: intermittent Related Data Home Medications ?Medication ?Instructions ?Recorded ?Confirmed acetaminophen 500 mg tablet 1,000 mg PO TID PRN pain 03/13/23 12/09/23 atorvastatin 20 mg tablet 20 mg PO DAILY 03/13/23 12/09/23 carvedilol 25 mg tablet 25 mg PO BID 03/13/23 12/09/23 clonidine 0.3 mg/24 hr weekly 1 patch topical FR@0900 03/13/23 12/09/23 transdermal patch gabapentin 100 mg capsule 200 mg PO BID 03/13/23 12/09/23 hydrocortisone 0.5 % topical cream 1 appl topical DAILY PRN Rash 03/13/23 12/09/23 ketoconazole 2 % topical cream 1 appl topical DAILY PRN Rash 03/13/23 12/09/23 lactulose 10 gram/15 mL oral 15 ml PO DAILY PRN Constipation 03/13/23 12/09/23 solution nifedipine 60 mg tablet,extended 60 mg PO SUTUTHSA@0900 03/13/23 12/09/23 release ondansetron HCl 4 mg tablet 4 mg PO Q8H PRN Nausea 03/13/23 12/09/23 polyethylene glycol 3350 17 17 g PO DAILY PRN Constipation 03/13/23 12/09/23 gram/dose oral powder sennosides 8.6 mg-docusate sodium 2 tab PO BID 03/13/23 12/09/23 50 mg tablet (Senna Plus) sertraline 50 mg tablet 50 mg PO DAILY 03/13/23 12/09/23 sevelamer carbonate 800 mg tablet 2,400 mg PO TIDWMEAL 03/13/23 12/09/23 vitamin B complex and vitamin C 1 cap PO BEDTIME 04/19/23 12/09/23 no.20-folic acid 1 mg capsule (Renal Caps) levetiracetam 1,000 mg tablet 500 mg PO BID 06/14/23 12/09/23 levetiracetam 500 mg tablet 500 mg PO MOWEFR@1645 06/14/23 12/09/23 losartan 50 mg tablet 50 mg PO BID 12/09/23 12/09/23 Allergies Allergy/AdvReac Type Severity Reaction Status Date / Time ceftriaxone AdvReac Nausea and Verified 02/24/24 10:19 Vomiting lorazepam [From Ativan] AdvReac Shakiness Verified 02/24/24 10:19 metoclopramide [From Reglan] AdvReac Nausea Verified 02/24/24 10:19 Review of Systems Review of Systems: Yes all other systems are reviewed and are negative Neurologic: Denies Sensory deficit (Neuro) [facility] Past Medical History Medical History Drug abuse Normocytic anemia CKD (chronic kidney disease) Syncope Anemia HTN (hypertension) Seizure disorder ESRD on dialysis End stage chronic kidney disease Bilateral lower extremity pain Back pain Family History Family History Sister Substance use disorder Social History Social History Household Members: Family Household Members Other:: mom, step dad, sister and nephew Housing: House Do you presently have visiting nurse or other home services: No Alcohol intake: former Comment: Pt refusing bed alarm Patient Tobacco Use Status: Never used Tobacco Smoked in Last 30 Days: No e-Cigarette/Vaping Use: Never Used Use of substances other than those prescribed or required for medical reasons: Yes Substance Use Type: Marijuana Advance Directives: Yes Advance Directives on File: Yes Advance Directives Date on File: 12/11/23 Do you have a plan to hurt others: No Plan service: No Cognitive needs: No Hearing needs: No Vision needs: No Physical Exam ED Vital Signs: Vital Signs - 24 hr 02/24/24 10:16 Temperature 98.2 F Pulse Rate 87 Respiratory Rate 13 Blood Pressure 165/109 H Pulse Oximetry 100 Oxygen Delivery Method Room Air BMI result Body Mass Index 31.9 Const Other: obese, anxious chronically ill appearing in no acute distress Orientation/consciousness: oriented to person and patient oriented x3 Limitations: no limitations HENMT Head: Yes normal to inspection Ears: external ears normal General nose exam: Normal external nose present Mouth: Normal oral and palatal mucosa present and oropharynx normal Throat: Yes posterior oropharynx normal Eyes General: appearance normal, both eyes and all related structures Neck Neck: Yes normal visual inspection Chest Chest palpation & inspection: normal inspection of the chest Resp Auscultation: clear to auscultation bilaterally Cardio Jugular venous distension: no JVD Rate: regular rate Rhythm: regular rhythm Heart sounds: S1 normal heart sound present and S2 normal heart sound present GI Inspection: Yes normal to inspection Palpation (GI): Soft to palpation, nontender and No hepatosplenomegaly present Auscultation: normal bowel sounds General: Yes no CVA tenderness Back/Spine/Pelvis Back: no CVA tenderness Skin General skin exam: no rashes or lesions noted Neuro General: oriented to person and patient oriented x3 Cranial nerves: Yes CN's II-XII intact bilaterally Motor exam (neuro): 5/5 motor strength present throughout Sensory Exam: No Sensory deficit (Neuro) Extrem General: Yes normal to inspection Psych Appearance: grossly normal Course Reevaluation(s) Reevaluation #1: Patient with non cardiac chest pain, he needs dialysis will dc so he can go to dialysis Time: 11:26 Medical Decision Making Differential Diagnosis Differential Diagnoses: The differential diagnosis associated with the presentation includes cardiac ischemia, atypical chest pain, PE, opiate abuse Admission/Observation Consideration of admission/observation: Escalation of care including admission/observation considered (patient considered for admission) Lab Data 02/24/24 10:38 02/24/24 10:38 Labs: Lab Results 02/24/24 Range/Units 10:38 WBC 5.3 (4.8-10.8) X10*3/uL RBC 2.69 L (4.60-5.80) X10*6/uL Hgb 9.2 L (14.0-18.0) g/dl Hct 25.5 L (42.0-52.0) % MCV 94.8 (80.0-98.0) fL MCH 34.2 H (27.0-33.0) pg MCHC 36.1 H (31.0-36.0) g/dl RDW 12.8 (11.0-16.0) % Plt Count 88 L (160-400) X10*3/uL MPV 9.4 (9.4-12.4) fL Immature Gran % (Auto) 0.4 (0.0-0.4) % Neut % (Auto) 66.3 (45-73) % Lymph % (Auto) 18.6 L (20-40) % [place]wood % (Auto) 11.1 H (2-11) % Eos % (Auto) 3.0 (0-4) % Baso % (Auto) 0.6 (0-2) % Lymph # (Auto) 1.0 L (1.2-4.9) X10*3/uL [place]wood # (Auto) 0.6 (0.1-1.2) X10*3/uL Eos # (Auto) 0.2 (0.0-0.4) X10*3/uL Baso # (Auto) 0.0 (0.0-0.2) X10*3/uL Abs Immat Gran (auto) 0.02 (0.00-0.03) X10*3/uL Absolute Neuts (auto) 3.5 (2.0-8.3) x10*3/uL Absolute Nucleated RBC 0.000 (0.0-0.012) X10*3/uL Nucleated RBC % (auto) 0.0 (0.0-0.2) /100WBC Sodium 141 (135-145) mmol/L Potassium 5.1 (3.3-5.1) mmol/L Chloride 102 (96-108) mmol/L Carbon Dioxide 23 (22-29) mmol/L Anion Gap 21 H (12-20) BUN 63 H (9-16) mg/dL Creatinine 17.17 H* (0.5-1.4) mg/dL Estim Creat Clear Calc 8.0 Estimated GFR 3 Random Glucose 93 (60-115) mg/dL Calcium 8.4 (8.4-10.2) mg/dL Troponin I High Sens 25.2 (<3.5-35.0) ng/L Independent Interpretation I performed an independent interpretation of an: EKG (sinus 80, no st or twave changes) Independent Historian Clinical information obtained from an independent historian. History obtained from or confirmed by: EMS External Record Review External record reviewed: Outpatient record and Prior outpatient labs Chronic Conditions Patient?s care impacted by: Other (renal failure and dialysis) Social Determinants Patient?s care significantly limited by Social Determinants of Health including: Low income Discharge Plan Discharge Clinical Impression: Chest pain Patient Disposition: Home, Self-Care Instructions: Chest Pain (ED) Additional Instructions: Must go to dialysis immediately Prescriptions: No Action carvedilol 25 mg tablet 25 mg PO BID atorvastatin 20 mg tablet 20 mg PO DAILY ondansetron HCl 4 mg tablet 4 mg PO Q8H PRN (Reason: Nausea) sennosides-docusate sodium [Senna Plus] 8.6-50 mg tablet 2 tab PO BID acetaminophen 500 mg tablet 1,000 mg PO TID PRN (Reason: pain) clonidine 0.3 mg/24 hr patch weekly 1 patch topical FR@0900 gabapentin 100 mg capsule 200 mg PO BID polyethylene glycol 3350 17 gram/dose powder 17 g PO DAILY PRN (Reason: Constipation) nifedipine 60 mg tablet extended release 60 mg PO SUTUTHSA@0900 sertraline 50 mg tablet 50 mg PO DAILY lactulose 10 gram/15 mL solution 15 ml PO DAILY PRN (Reason: Constipation) sevelamer carbonate 800 mg tablet 2,400 mg PO TIDWMEAL hydrocortisone 0.5 % Cream 1 appl TOPICAL DAILY PRN (Reason: Rash) Rx Instructions: face ketoconazole 2 % Cream 1 appl TOPICAL DAILY PRN (Reason: Rash) Rx Instructions: face Renal Caps 1 mg capsule 1 cap PO BEDTIME levetiracetam 500 mg tablet 500 mg PO MOWEFR@1645 Rx Instructions: AFTER DIAYLSIS levetiracetam 1,000 mg tablet 500 mg PO BID losartan 50 mg tablet 50 mg PO BID Print Language: Bruneian
[2024-02-24 10:41] LABS: MANUAL DIFF FLAG NO
[2024-02-24 10:46] LABS: Basophils Percent Auto 0.6 % (0-2); Eosinophils Absolute Auto 0.2 X10*3/uL (0.0-0.4); Hematocrit 25.5 % (42.0-52.0); Hemoglobin 9.2 g/dl (14.0-18.0); Imm Gran Abs Auto 0.02 X10*3/uL (0.00-0.03); Imm Gran Pct Auto 0.4 % (0.0-0.4); Lymphocytes Percent Auto 18.6 % (20-40); Mean Corpuscular HGB Conc 36.1 g/dl (31.0-36.0); Mean Corpuscular Hemoglobin 34.2 pg (27.0-33.0); Mean Corpuscular Volume 94.8 fL (80.0-98.0); Mean Platelet Volume 9.4 fL (9.4-12.4); Monocytes Absolute Auto 0.6 X10*3/uL (0.1-1.2); Monocytes Percent Auto 11.1 % (2-11); Neutrophils Absolute Auto 3.5 x10*3/uL (2.0-8.3); Neutrophils Percent Auto 66.3 % (45-73); Red Blood Count 2.69 X10*6/uL (4.60-5.80); Red Cell Distribution Width 12.8 % (11.0-16.0); White Blood Count 5.3 X10*3/uL (4.8-10.8)
[2024-02-24 10:47] LABS: Platelet Count 88 X10*3/uL (160-400)
[2024-02-24 11:05] LABS: Anion Gap 21 (12-20); Blood Urea Nitrogen 63 mg/dL (9-16); Calcium 8.4 mg/dL (8.4-10.2); Carbon Dioxide 23 mmol/L (22-29); Chloride 102 mmol/L (96-108); Glucose Random 93 mg/dL (60-115); Potassium 5.1 mmol/L (3.3-5.1); Sodium 141 mmol/L (135-145)
[2024-02-24 11:06] LABS: Estimated Glomerular Filt Rate 3
[2024-02-24 11:12] LABS: Troponin-I High Sensitivity 25.2 ng/L (<3.5-35.0)
--- NOTE | 2024-02-24 11:52 | PC.NURSE ---
pt with unwitnessed fall in room, witnessed by family in room 14. pt went to his knees then fell onto his face. Dr. Salmeron at bedside immediately. pt VSS.
[2024-02-24 12:05] VITALS: BP 152/101; PULSE 91; RESP 12; O2SAT 99
[2024-02-24 13:47] VITALS: BP 153/100; PULSE 89; RESP 14; O2SAT 99
[2024-02-24 14:04] VITALS: BP 144/97; PULSE 86; RESP 16; O2SAT 99
[2024-02-24 15:38] VITALS: BP 162/106; PULSE 89; RESP 18; O2SAT 100
[2024-02-24] MEDS: Acetaminophen 325 MG TABLET 975 MG PO (15:38)
[2024-02-24 16:07] VITALS: BP 162/106; PULSE 89; RESP 18; TEMP 36.8; O2SAT 100
== END 2024-02-24 16:07 | disposition home or self-care (01) ==
PROVIDERS: Emergency Provider Emergency Medicine; PCP Nurse Practitioner Family
DX: R07.89 Other chest pain (principal); Z76.5 Malingerer [conscious simulation]; F19.10 Other psychoactive substance abuse, uncomplicated; M47.812 Spondylosis without myelopathy or radiculopathy, cervical region; S00.83XA Contusion of other part of head, initial encounter; W19.XXXA Unspecified fall, initial encounter; I12.0 Hypertensive chronic kidney disease with stage 5 chronic kidney disease or end stage renal disease; N18.6 End stage renal disease; Z99.2 Dependence on renal dialysis; Y93.89 Activity, other specified; Y92.230 Patient room in hospital as the place of occurrence of the external cause; Y99.9 Unspecified external cause status
CPT/HCPCS: 36415; 70450; 72125; 80048; 84484; 85025; 93005; 99284; 99285

== ENCOUNTER → 2024-02-24 10:20 | Outpatient (BNV) | payer OTHER, SELFPAY | PROVIDERS: Emergency Provider Emergency Medicine; PCP Nurse Practitioner Family; Visit Provider Internal Medicine Cardiovascular Disease | DX: R94.31 Abnormal electrocardiogram [ECG] [EKG] (principal) | CPT/HCPCS: 93010 ==

== ENCOUNTER 2024-07-13 19:25 | Emergency (ER) | payer OTHER, SELFPAY ==
--- NOTE | 2024-07-13 19:32 | ECG_ITS ---
Test Reason : WEAKNESS Blood Pressure : / mmHG Vent. Rate : 067 BPM Atrial Rate : 067 BPM P-R Int : 208 ms QRS Dur : 094 ms QT Int : 422 ms P-R-T Axes : 069 032 081 degrees QTc Int : 445 ms Normal sinus rhythm ST elevation, consider early repolarization, pericarditis, or injury Abnormal ECG When compared with ECG of 24-FEB-2024 10:17, T wave amplitude has increased in Inferior leads Nonspecific T wave abnormality no longer evident in Lateral leads Referred By: Yaritza Mcwilliams Electronically Signed By:Juvencio Vial
[2024-07-13 19:34] VITALS: BP 158/121; PULSE 80; O2SAT 97
[2024-07-13 19:40] VITALS: BP 143/89; PULSE 69; RESP 16; TEMP 36.5; O2SAT 99; BMI 31.6
[2024-07-13 20:40] LABS: Basophils Percent Auto 0.5 % (0-2); Eosinophils Absolute Auto 0.2 X10*3/uL (0.0-0.4); Eosinophils Percent Auto 2.5 % (0-4); Hemoglobin 13.9 g/dl (14.0-18.0); Imm Gran Abs Auto 0.04 X10*3/uL (0.00-0.03); Imm Gran Pct Auto 0.5 % (0.0-0.4); Lymphocytes Absolute Auto 0.7 X10*3/uL (1.2-4.9); MANUAL DIFF FLAG SCAN; Mean Corpuscular HGB Conc 34.8 g/dl (31.0-36.0); Mean Corpuscular Hemoglobin 32.9 pg (27.0-33.0); Mean Corpuscular Volume 94.8 fL (80.0-98.0); Monocytes Absolute Auto 0.7 X10*3/uL (0.1-1.2); Monocytes Percent Auto 8.3 % (2-11); Neutrophils Absolute Auto 6.4 x10*3/uL (2.0-8.3); Neutrophils Percent Auto 79.2 % (45-73); PLT CLUMP 1; Red Blood Count 4.22 X10*6/uL (4.60-5.80); Red Cell Distribution Width 15.3 % (11.0-16.0); SCAN SMEAR FLAG 1
[2024-07-13 20:41] LABS: White Blood Count 8.1 X10*3/uL (4.8-10.8)
[2024-07-13 20:43] LABS: Alanine Aminotransferase 19 U/L (0-40); Albumin Level 5.6 g/dL (3.5-5.0); Alkaline Phosphatase 192 U/L (39-117); Anion Gap 25 (12-20); Aspartate Amino Transferase 30 U/L (5-37); Bilirubin Total 1.8 mg/dL (0.0-1.0); Blood Urea Nitrogen 31 mg/dL (9-16); Calcium 9.6 mg/dL (8.4-10.2); Carbon Dioxide 25 mmol/L (22-29); Chloride 98 mmol/L (96-108); Creatinine Clr Calc Pharmacy 14.6; Estimated Glomerular Filt Rate 7; Glucose Random 95 mg/dL (60-115); Magnesium 1.8 mg/dL (1.6-2.6); Potassium 8.4 mmol/L (3.3-5.1); Sodium 140 mmol/L (135-145); Total Protein 9.1 g/dL (6.5-8.0)
[2024-07-13 20:45] LABS: Mean Platelet Volume 10.8 fL (9.4-12.4); Platelet Count 146 X10*3/uL (160-400); SLIDE REVIEW VERIFIED
[2024-07-13 20:55] LABS: Influenza A PCR NEGATIVE (Negative); Influenza B PCR NEGATIVE (Negative); Resp Syncy Virus RNA Qual PCR NEGATIVE (Negative); SARS COV2 PCR INHOUSE NEGATIVE (Negative)
[2024-07-13 21:34] LABS: Alanine Aminotransferase 14 U/L (0-40); Albumin Level 5.1 g/dL (3.5-5.0); Alkaline Phosphatase 172 U/L (39-117); Anion Gap 23 (12-20); Aspartate Amino Transferase 22 U/L (5-37); Bilirubin Total 1.5 mg/dL (0.0-1.0); Blood Urea Nitrogen 32 mg/dL (9-16); Calcium 9.1 mg/dL (8.4-10.2); Carbon Dioxide 27 mmol/L (22-29); Chloride 98 mmol/L (96-108); Creatinine Clr Calc Pharmacy 14.6; Estimated Glomerular Filt Rate 7; Glucose Random 91 mg/dL (60-115); Potassium 7.7 mmol/L (3.3-5.1); Sodium 140 mmol/L (135-145); Total Protein 7.9 g/dL (6.5-8.0)
[2024-07-13 21:45] LABS: Glucose, Whole Blood 91 mg/dL (60-115)
[2024-07-13] MEDS: Dextrose 10 % 250 ML 750 ML IV (21:47)
[2024-07-13] MEDS: Albuterol Sulfate (0.083%) 2.5 MG/3 ML VIAL.NEB 10 MG INHALE (21:49)
[2024-07-13 21:50] VITALS: BP 134/88; PULSE 62; RESP 12; O2SAT 100
[2024-07-13 21:52] VITALS: PULSE 62; RESP 12; O2SAT 96
[2024-07-13] MEDS: Sodium Bicarbonate 8.4% 50 MEQ/50 ML SYRINGE IVPUSH (22:03)
[2024-07-13] MEDS: Insulin Regular, Human 100 UNIT/ML 10 ML VIAL 10 UNIT IVPUSH (22:05)
[2024-07-13] MEDS: Calcium Gluconate/NaCl,Iso-Osm 2 GM/100 ML PLAST..BAG IV (22:07)
[2024-07-13 22:35] LABS: Glucose, Whole Blood 159 mg/dL (60-115)
--- NOTE | 2024-07-13 23:18 | PC.NURSE ---
this rn assumed care of pt, pt a&ox4, respirations even and unlabored. pt denies pain at this time, no acute distress noted.
[2024-07-13 23:32] VITALS: BP 151/94; PULSE 73; RESP 14; O2SAT 95
--- NOTE | 2024-07-14 00:26 | PC.NURSE ---
pt calcium drip completed at this time, pt lab obtained from accessed port at this time.
[2024-07-14 00:58] LABS: Alanine Aminotransferase 12 U/L (0-40); Albumin Level 4.5 g/dL (3.5-5.0); Alkaline Phosphatase 153 U/L (39-117); Anion Gap 19 (12-20); Aspartate Amino Transferase 20 U/L (5-37); Bilirubin Total 1.1 mg/dL (0.0-1.0); Blood Urea Nitrogen 33 mg/dL (9-16); Carbon Dioxide 29 mmol/L (22-29); Chloride 99 mmol/L (96-108); Estimated Glomerular Filt Rate 6; Glucose Random 81 mg/dL (60-115); Potassium 5.1 mmol/L (3.3-5.1); Sodium 142 mmol/L (135-145)
[2024-07-14 01:12] LABS: Calcium 12.6 mg/dL (8.4-10.2)
--- NOTE | 2024-07-14 01:35 | ED_ITS ---
HPI - General Adult General Chief complaint: Weakness Stated complaint: kidney failure,had dialysis today,feels weak/dizzy Time Seen by Provider: 07/13/24 21:05 Source: patient and EMS Mode of arrival: EMS Limitations: no limitations History of Present Illness ED Provider: Dr. Kristyn Rutledge HPI narrative: patient comes to the emergency room complaining of weakness in bilateral upper and lower extremities. Patient states it started this weekend. Patient states that earlier today he went to dialysis as he usually does. Patient compliant with dialysis. Finish full treatment. Patient denies any injuries or falls. patient denies chest pain or shortness of breath Related Data Home Medications ?Medication ?Instructions ?Recorded ?Confirmed acetaminophen 500 mg tablet 1,000 mg PO TID PRN pain 03/13/23 02/24/24 atorvastatin 20 mg tablet 20 mg PO DAILY 03/13/23 02/24/24 carvedilol 25 mg tablet 25 mg PO BID 03/13/23 02/24/24 clonidine 0.3 mg/24 hr weekly 1 patch topical FR@0900 03/13/23 02/24/24 transdermal patch gabapentin 100 mg capsule 200 mg PO BID 03/13/23 02/24/24 hydrocortisone 0.5 % topical cream 1 appl topical DAILY PRN Rash 03/13/23 02/24/24 ketoconazole 2 % topical cream 1 appl topical DAILY PRN Rash 03/13/23 02/24/24 lactulose 10 gram/15 mL oral 15 ml PO DAILY PRN Constipation 03/13/23 02/24/24 solution nifedipine 60 mg tablet,extended 60 mg PO DAILY 03/13/23 02/24/24 release ondansetron HCl 4 mg tablet 4 mg PO Q8H PRN Nausea 03/13/23 02/24/24 polyethylene glycol 3350 17 17 g PO DAILY PRN Constipation 03/13/23 02/24/24 gram/dose oral powder sennosides 8.6 mg-docusate sodium 2 tab PO BID 03/13/23 02/24/24 50 mg tablet (Senna Plus) sertraline 50 mg tablet 50 mg PO DAILY 03/13/23 02/24/24 sevelamer carbonate 800 mg tablet 2,400 mg PO TIDWMEAL 03/13/23 12/09/23 vitamin B complex and vitamin C 1 cap PO BEDTIME 04/19/23 02/24/24 no.20-folic acid 1 mg capsule (Renal Caps) levetiracetam 500 mg tablet 500 mg PO JEANNE@1645 06/14/23 02/24/24 docusate sodium 100 mg capsule 100 - 200 mg PO DAILY PRN 02/24/24 02/24/24 Constipation lanthanum 1,000 mg chewable tablet 1,000 mg PO TID 02/24/24 02/24/24 levetiracetam 500 mg tablet 500 mg PO BID 02/24/24 02/24/24 losartan 100 mg tablet 100 mg PO DAILY 02/24/24 02/24/24 nitroglycerin 0.4 mg sublingual 0.4 mg sublingual Q5M PRN Chest 02/24/24 02/24/24 tablet Pain Previous Rx's ?Medication ?Instructions ?Recorded naloxone 4 mg/actuation nasal spray 4 mg intranasal Q3M PRN opioid 07/01/24 overdose #2 ea Allergies Allergy/AdvReac Type Severity Reaction Status Date / Time ceftriaxone AdvReac Nausea and Verified 07/13/24 19:43 Vomiting lorazepam [From Ativan] AdvReac Shakiness Verified 07/13/24 19:43 metoclopramide [From Reglan] AdvReac Nausea Verified 07/13/24 19:43 Review of Systems 2 Review of Systems: Constitutional : No Weight loss, No Fever, No Chills, No Night Sweats, No Fatigue, No Malaise ENT/Mouth : No Hearing loss, No Ear Pain, No Nasal Congestion, No Sinus Pain, No Hoarseness, No sore throat, No Rhinorrhea, No Swallowing Difficulty Eyes: No Eye Pain, No Swelling, No Redness, No Foreign Body, No Discharge, No Vision Changes Cardiovascular : No Chest Pain, No SOB, No Dyspnea on Exertion, No Orthopnea, No Edema, No Palpitations Respiratory : No Cough, No Sputum, No Wheezing, No Smoke Exposure, No Dyspnea Gastrointestinal : No Nausea, No Vomiting, No Diarrhea, No Constipation, No abdominal Pain, No Hematochezia, No Melena Genitourinary : no irregular bleeding, No Dysuria, No Urinary Frequency, No Hematuria, No Urinary Incontinence, No Urgency, No Flank Pain, No Urinary Flow Changes, No Hesitancy Musculoskeletal : patient complaining of bilateral upper and lower extremity numbness and weakness Skin : No Skin Lesions, No rash Neuro : No Weakness, No Numbness, No Paresthesias, No Loss of Consciousness, No Dizziness, No Headache Psych : No Anxiety/Panic, No Depression, No SI/HI/AH/VH, No Social Issues, Heme/Lymph: No Bruising, No Bleeding,No Lymphadenopathy Endocrine : No Polyuria, No Polydipsia, No Temperature Intolerance [facility] Past Medical History Medical History Drug abuse Normocytic anemia CKD (chronic kidney disease) Syncope Anemia HTN (hypertension) Seizure disorder ESRD on dialysis End stage chronic kidney disease Bilateral lower extremity pain Back pain Family History Family History Sister Substance use disorder Social History Social History Household Members: Family Household Members Other:: mom, step dad, sister and nephew Housing: House Do you presently have visiting nurse or other home services: No Alcohol intake: never Comment: Pt refusing bed alarm Patient Tobacco Use Status: Never used Tobacco Smoked in Last 30 Days: No e-Cigarette/Vaping Use: Never Used Use of substances other than those prescribed or required for medical reasons: Yes Substance Use Type: Marijuana Advance Directives: Yes Advance Directives on File: Yes Advance Directives Date on File: 12/11/23 service: No Cognitive needs: No Hearing needs: No Vision needs: No Physical Exam ED Vital Signs: Vital Signs - 24 hr 07/13/24 19:40 07/13/24 21:50 07/13/24 21:52 Temperature 97.7 F Pulse Rate 69 62 62 Respiratory Rate 16 12 12 Blood Pressure 143/89 H 134/88 Pulse Oximetry 99 100 Oxygen Delivery Method Room Air Room Air 07/13/24 23:32 Temperature Pulse Rate 73 Respiratory Rate 14 Blood Pressure 151/94 H Pulse Oximetry 95 Oxygen Delivery Method Room Air BMI result Body Mass Index 31.6 Const Other: Appearance: Alert. Oriented X3. No acute distress. Eyes: Pupils equal, round and reactive to light. ENT: Pharynx normal. Neck: Normal inspection. Neck supple. No lymph nodes noted. No crepitus CVS: Normal heart rate and rhythm. Pulses normal. Normal S1 and S2 Respiratory: No respiratory distress. Breath sounds normal. No Wheezing. No rales dialysis port on the chest, clean Abdomen: Soft and nontender. No rigidity. No distention. Skin: Skin warm and dry. Normal skin color. Normal skin turgor. Extremities: No lower extremity edema. No Lacerations. No Rash Neuro: Oriented X 3. No motor deficit. No sensory deficit. Moving all extremities. No slurred speech. CN 2 through 12 grossly intact Psych: calm, cooperative, normal affect Medications Administered Generic Name Dose Route Start Last Admin Trade Name Freq PRN Reason Stop Dose Admin Dextrose 250 mls @ 750 mls/hr 07/13/24 21:33 07/13/24 22:07 D10 IV Infused Q15M PRN Infusion per Hypoglycemia Standing Ord. Discontinued Medications Generic Name Dose Route Start Last Admin Trade Name Freq PRN Reason Stop Dose Admin Albuterol Sulfate 10 mg 07/13/24 21:33 07/13/24 21:49 Albuterol Sulfate (0.083%) 2.5 Mg/3 Ml Vial.Neb INHALE 07/13/24 21:34 10 mg ONCE ONE Administration Calcium Gluconate 2 gm in 100 mls @ 50 mls/hr 07/13/24 21:33 07/14/24 00:10 Calcium Gluconate IV 07/13/24 23:32 Infused ONCE ONE Infusion Insulin Human Regular 10 unit 07/13/24 21:33 07/13/24 22:05 Insulin Regular, Human 100 Unit/Ml 10 Ml Vial IVPUSH 07/13/24 21:34 10 unit ONCE ONE Administration Sodium Bicarbonate 50 meq 07/13/24 21:33 07/13/24 22:03 Sodium Bicarbonate 8.4% 50 Meq/50 Ml Syringe IVPUSH 07/13/24 21:34 50 meq ONCE ONE Administration Medical Decision Making Medical Decision Making [facility] Narrative: my interpretation of labs: Patient's hematology at baseline, chemistry shows a potassium of 8.4. - My interpretation of EKG: Normal sinus rhythm, heart rate 67, no ST segment depression or elevation, no peaked T-waves, QTC 445 - patient received IV calcium gluconate, albuterol 10 mg, insulin 10 units along with dextrose 750, sodium bicarb. - Patient's potassium improved to 5.1, patient states that he feels back to baseline, no longer having weakness or paresthesias. Differential Diagnosis Differential Diagnoses: The differential diagnosis associated with the presentation includes ( Hyperkalemia) Lab Data MDM Lab Attestation statement: I reviewed the patient's lab results. 07/13/24 20:10 07/14/24 00:21 Labs: Lab Results 07/13/24 07/13/24 07/13/24 Range/Units 20:10 20:11 21:02 WBC 8.1 (4.8-10.8) X10*3/uL RBC 4.22 L D (4.60-5.80) X10*6/uL Hgb 13.9 L D (14.0-18.0) g/dl Hct 40.0 L D (42.0-52.0) % MCV 94.8 (80.0-98.0) fL MCH 32.9 (27.0-33.0) pg MCHC 34.8 (31.0-36.0) g/dl RDW 15.3 (11.0-16.0) % Plt Count 146 L D (160-400) X10*3/uL MPV 10.8 (9.4-12.4) fL Immature Gran % (Auto) 0.5 H (0.0-0.4) % Neut % (Auto) 79.2 H (45-73) % Lymph % (Auto) 9.0 L (20-40) % [place] % (Auto) 8.3 (2-11) % Eos % (Auto) 2.5 (0-4) % Baso % (Auto) 0.5 (0-2) % Lymph # (Auto) 0.7 L (1.2-4.9) X10*3/uL [place] # (Auto) 0.7 (0.1-1.2) X10*3/uL Eos # (Auto) 0.2 (0.0-0.4) X10*3/uL Baso # (Auto) 0.0 (0.0-0.2) X10*3/uL Abs Immat Gran (auto) 0.04 H (0.00-0.03) X10*3/uL Absolute Neuts (auto) 6.4 (2.0-8.3) x10*3/uL Absolute Nucleated RBC 0.000 (0.0-0.012) X10*3/uL Nucleated RBC % (auto) 0.0 (0.0-0.2) /100WBC Smear Tech's Comments VERIFIED Sodium 140 140 (135-145) mmol/L Potassium 8.4 H* D 7.7 H* (3.3-5.1) mmol/L Chloride 98 98 (96-108) mmol/L Carbon Dioxide 25 27 (22-29) mmol/L Anion Gap 25 H 23 H (12-20) BUN 31 H 32 H (9-16) mg/dL Creatinine 9.35 H* 9.35 H* (0.5-1.4) mg/dL Estim Creat Clear Calc 14.6 14.6 Estimated GFR 7 7 POC Glucose (60-115) mg/dL Random Glucose 95 91 (60-115) mg/dL Calcium 9.6 D 9.1 (8.4-10.2) mg/dL Magnesium 1.8 (1.6-2.6) mg/dL Total Bilirubin 1.8 H 1.5 H (0.0-1.0) mg/dL AST 30 22 (5-37) U/L ALT 19 14 (0-40) U/L Alkaline Phosphatase 192 H 172 H (39-117) U/L Total Protein 9.1 H 7.9 (6.5-8.0) g/dL Albumin 5.6 H 5.1 H (3.5-5.0) g/dL Influenza Type A (PCR) NEGATIVE (Negative) Influenza Type B (PCR) NEGATIVE (Negative) RSV RNA Qual (PCR) NEGATIVE (Negative) SARS-CoV-2 RNA (RT-PCR) NEGATIVE (Negative) 07/13/24 07/13/24 07/14/24 Range/Units 21:41 22:31 00:21 WBC (4.8-10.8) X10*3/uL RBC (4.60-5.80) X10*6/uL Hgb (14.0-18.0) g/dl Hct (42.0-52.0) % MCV (80.0-98.0) fL MCH (27.0-33.0) pg MCHC (31.0-36.0) g/dl RDW (11.0-16.0) % Plt Count (160-400) X10*3/uL MPV (9.4-12.4) fL Immature Gran % (Auto) (0.0-0.4) % Neut % (Auto) (45-73) % Lymph % (Auto) (20-40) % [place] % (Auto) (2-11) % Eos % (Auto) (0-4) % Baso % (Auto) (0-2) % Lymph # (Auto) (1.2-4.9) X10*3/uL [place] # (Auto) (0.1-1.2) X10*3/uL Eos # (Auto) (0.0-0.4) X10*3/uL Baso # (Auto) (0.0-0.2) X10*3/uL Abs Immat Gran (auto) (0.00-0.03) X10*3/uL Absolute Neuts (auto) (2.0-8.3) x10*3/uL Absolute Nucleated RBC (0.0-0.012) X10*3/uL Nucleated RBC % (auto) (0.0-0.2) /100WBC Smear Tech's Comments Sodium 142 (135-145) mmol/L Potassium 5.1 D (3.3-5.1) mmol/L Chloride 99 (96-108) mmol/L Carbon Dioxide 29 (22-29) mmol/L Anion Gap 19 (12-20) BUN 33 H (9-16) mg/dL Creatinine 9.71 H* (0.5-1.4) mg/dL Estim Creat Clear Calc 14.0 Estimated GFR 6 POC Glucose 91 159 H (60-115) mg/dL Random Glucose 81 (60-115) mg/dL Calcium 12.6 H* D (8.4-10.2) mg/dL Magnesium (1.6-2.6) mg/dL Total Bilirubin 1.1 H (0.0-1.0) mg/dL AST 20 (5-37) U/L ALT 12 (0-40) U/L Alkaline Phosphatase 153 H (39-117) U/L Total Protein 7.0 (6.5-8.0) g/dL Albumin 4.5 (3.5-5.0) g/dL Influenza Type A (PCR) (Negative) Influenza Type B (PCR) (Negative) RSV RNA Qual (PCR) (Negative) SARS-CoV-2 RNA (RT-PCR) (Negative) Critical Care Time Critical Care Time Critical Care Time: Yes Total Critical Care Time: 60 Attestation: I have personally provided critical care time. Time includes review of lab data, radiology results, discussion with consultants, and monitoring for potential decompensation. Intervention performed as documented. Discharge Plan Discharge Clinical Impression: Hyperkalemia Patient Disposition: Home, Self-Care Instructions: Hyperkalemia (ED) Additional Instructions: Please follow-up with your primary care physician tomorrow. If you have any worsening or new symptoms, please return to the emergency room or call 911 Prescriptions: No Action naloxone 4 mg/actuation spray,non-aerosol 4 mg intranasal Q3M PRN (Reason: opioid overdose) Qty: 2 2RF Rx Instructions: spray 1 dose into ONE nostril; alternate nostrils w each dose until help arrives carvedilol 25 mg tablet 25 mg PO BID atorvastatin 20 mg tablet 20 mg PO DAILY ondansetron HCl 4 mg tablet 4 mg PO Q8H PRN (Reason: Nausea) sennosides-docusate sodium [Senna Plus] 8.6-50 mg tablet 2 tab PO BID acetaminophen 500 mg tablet 1,000 mg PO TID PRN (Reason: pain) clonidine 0.3 mg/24 hr patch weekly 1 patch topical FR@0900 gabapentin 100 mg capsule 200 mg PO BID polyethylene glycol 3350 17 gram/dose powder 17 g PO DAILY PRN (Reason: Constipation) nifedipine 60 mg tablet extended release 60 mg PO DAILY sertraline 50 mg tablet 50 mg PO DAILY lactulose 10 gram/15 mL solution 15 ml PO DAILY PRN (Reason: Constipation) sevelamer carbonate 800 mg tablet 2,400 mg PO TIDWMEAL hydrocortisone 0.5 % Cream 1 appl TOPICAL DAILY PRN (Reason: Rash) Rx Instructions: face ketoconazole 2 % Cream 1 appl TOPICAL DAILY PRN (Reason: Rash) Rx Instructions: face Renal Caps 1 mg capsule 1 cap PO BEDTIME levetiracetam 500 mg tablet 500 mg PO MOWEFR@1645 Rx Instructions: AFTER DIAYLSIS levetiracetam 500 mg Tablet 500 mg PO BID nitroglycerin 0.4 mg Tablet, Sublingual 0.4 mg SUBLINGUAL Q5M PRN (Reason: Chest Pain) Rx Instructions: do not exceed 3 doses per episode docusate sodium 100 mg Capsule 100 - 200 mg PO DAILY PRN (Reason: Constipation) losartan 100 mg tablet 100 mg PO DAILY lanthanum 1,000 mg tablet,chewable 1,000 mg PO TID Print Language: Bengali
[2024-07-14 02:12] VITALS: BP 146/99; PULSE 78; RESP 16; TEMP 37; O2SAT 99
[2024-07-14 02:13] VITALS: BP 146/99; PULSE 78; RESP 16; TEMP 37; O2SAT 99
--- NOTE | 2024-07-14 02:14 | PC.NURSE ---
pt port deaccessed at this time.
== END 2024-07-14 02:14 | disposition home or self-care (01) ==
PROVIDERS: Physician Assistant Medical; Emergency Provider Emergency Medicine; PCP Nurse Practitioner Family
DX: E87.5 Hyperkalemia (principal); R53.1 Weakness; I12.0 Hypertensive chronic kidney disease with stage 5 chronic kidney disease or end stage renal disease; N18.6 End stage renal disease; Z03.818 Encounter for observation for suspected exposure to other biological agents ruled out; Z79.899 Other long term (current) drug therapy; Z99.2 Dependence on renal dialysis
CPT/HCPCS: 0241U; 36415; 80053; 82947; 83735; 85025; 93005; 96365; 96366; 96367; 96375; 99285; J0613

== ENCOUNTER → 2024-07-13 19:32 | Outpatient (BNV) | payer OTHER, SELFPAY | PROVIDERS: Emergency Provider Emergency Medicine; PCP Nurse Practitioner Family; Visit Provider Internal Medicine Cardiovascular Disease | DX: R94.31 Abnormal electrocardiogram [ECG] [EKG] (principal) | CPT/HCPCS: 93010 ==

== ENCOUNTER 2024-08-04 15:07 | Outpatient (AMB) | payer OTHER, SELFPAY ==
--- NOTE | 2024-08-04 15:08 | A.OFFPC_ITS ---
Vital Signs 08/04/24 15:09 Height 6 ft Weight 237 lb BMI 32.1 BP 140/80 H Blood Pressure Location Rt brachial Position Sitting Pulse 77 Pulse Source Pulse Oximeter Pulse Oximetry (%) 97 Intake Visit Reasons: ED follow up Intake Note: pt is here for ED follow up Allergies ceftriaxone Adverse Reaction (Verified 08/04/24 15:13) Nausea and Vomiting lorazepam [From Ativan] Adverse Reaction (Verified 08/04/24 15:13) Shakiness metoclopramide [From Reglan] Adverse Reaction (Verified 08/04/24 15:13) Nausea Medication List - Last Reconciled 08/04/24 by Pillo Trejo, [employer]-BC alprazolam 0.5 mg PO Q OTHER DAY PRN atorvastatin 20 mg PO DAILY B complex with C 20-folic acid 1 mg (Renal Caps) 1 cap PO BEDTIME carvedilol 25 mg PO BID clonidine 1 patch topical FR@0900 docusate sodium 100 - 200 mg PO DAILY PRN gabapentin 200 mg PO BID hydrocortisone 0.5% 1 appl topical DAILY PRN ketoconazole 2% 1 appl topical DAILY PRN lactulose 15 mL PO DAILY PRN lanthanum 1,000 mg PO TID levetiracetam 500 mg PO MOWEFR@1645 levetiracetam 500 mg PO BID losartan 100 mg PO DAILY naloxone 4 mg/actuation 4 mg intranasal Q3M PRN nifedipine ER 60 mg PO DAILY nitroglycerin 0.4 mg sublingual Q5M PRN ondansetron HCl 4 mg PO Q8H PRN polyethylene glycol 3350 17 grams PO DAILY PRN sennosides-docusate sodium 8.6-50 mg (Senna Plus) 2 tabs PO BID sertraline 50 mg PO DAILY sevelamer carbonate 2,400 mg PO TIDWMEAL Tobacco use date assessed: 08/04/24 Dental Screening Dental Screen Date: 08/04/24 Did you have a dental visit in the last 12 months?: Yes Did you have a dental problem in the last 6 months where you did not have access to dental care?: No Was dental information given to patient?: Patient has dentist HPI ED follow up HPI Details Patient is here for preop today for future low risk dental repair including dental caries, periodontitis, impacted teeth. He does have a history of obstructive sleep apnea in end-stage renal disease, he goes for dialysis 3 times a week. He denies any cardiac history. He will be under general anesthesia for these procedures. It was noted on the maxillofacial implant surgery form that they are aware of his obstructive sleep apnea his kidney disease and hypertension. There is a question of a seizure disorder, but patient denies any recent seizure activity. I will get an EKG today, and blood work. The patient has a low has a low cardiac risk stratification, does not need any antibiotic prophylaxis that I am aware of, there are no other adriaan operative recommendations currently. I will clear him after he gets his lab work. It was noted on his paper that it would be good to perform the surgery a day after having dialysis. [facility] Medical History Drug abuse Normocytic anemia CKD (chronic kidney disease) Syncope Anemia HTN (hypertension) Seizure disorder ESRD on dialysis End stage chronic kidney disease Bilateral lower extremity pain Back pain Family History Sister Substance use disorder Social History Household Members: Family Household Members Other:: mom, step dad, sister and nephew Housing: House Do you presently have visiting nurse or other home services: No Alcohol intake: never Comment: Pt refusing bed alarm Patient Tobacco Use Status: Never used Tobacco e-Cigarette/Vaping Use: Never Used Substance Use Type: Marijuana Advance Directives Date on File: 12/11/23 service: No Cognitive needs: No Hearing needs: No Vision needs: No Questionnaire PHQ-9 Over the last 2 weeks, how often have you been bothered by any of the following problems? 1. Little interest or pleasure in doing things: more than half the days 2. Feeling down, depressed, or hopeless: nearly every day 3. Trouble falling or staying asleep, or sleeping too much: several days 4. Feeling tired or having little energy: several days 5. Poor appetite or overeating: more than half the days 6. Feeling bad about yourself - or that you are a failure or have let yourself or your family down: not at all 7. Trouble concentrating on things, such as reading the newspaper or watching te levision: several days 8. Moving or speaking so slowly that other people could have noticed. Or the opposite - being so fidgety or restless that you have been moving around a lot more than usual: not at all 9. Thoughts that you would be better off or of hurting yourself in some way: not at all Total score: 10 Depression Screening Interpretation: Positive Depression Screening Done: Yes 92815 - PHQ-9 Billing: Yes Source: Developed by Drs. Shad Hansen, Shirley Jenkins, Matthew Rojas and colleagues, with an educational marcela from 3yy game platform. Thrive Questionnaire Date Thrive assessed: 12/10/23 AUDIT C Alcohol Use Questionnaire (AUDIT-C) 1. How often do you have a drink containing alcohol?: Never 3. How often do you have six or more drinks on one occasion?: Never Total Score: 0 Score Reviewed/Action Taken: Yes NAHED-7 AMB Questionnaire NAHED-7 Date NAHED - 7 assessed: 08/04/24 Feeling nervous, anxious, or on edge: 2 = More than half the days Not being able to stop or control worryin = Several days Worrying too much about different things: 1 = Several days Trouble relaxin = More than half the days Being so restless that it is hard to sit still: 1 = Several days Becoming easily annoyed or irritable: 1 = Several days Feeling afraid as if something awful might happen: 0 = Not at all Total NAHED-7 score (0-4 normal; 5-9 mild; 10-14 moderate; 15-21 severe): 8 Source: Developed by Drs. Shad Hansen, Shirley Jenkins, Matthew Rojas and colleagues, with an educational marcela from 3yy game platform. NAHED-7 Assessment Billing NAHED-7 Assessment Tool: NAHED-7 Assessment 96867 Physical exam (Primary Care) Vital Signs: Last Vital Signs Pulse 77 08/04/24 15:09 BP 140/80 H 08/04/24 15:09 Pulse Ox 97 08/04/24 15:09 BMI result Body Mass Index 32.1 Tobacco/Smoking Status: Tobacco use Status Tobacco use date assessed 08/04/24 08/04/24 15:16 Patient Tobacco Use Status Never used Tobacco 08/04/24 15:11 e-Cigarette/Vaping Use Never Used 08/04/24 15:11 PHQ-9: PHQ-9 Score PHQ-9: Total score 10 08/04/24 15:53 Depression Screening Interpretation: Positive Thrive Assessment: Date of Thrive Assessment Date Thrive assessed 12/10/23 08/04/24 15:11 Const General: cooperative, healthy appearing and comfortable Neck Neck: No lymphadenopathy Resp Effort & Inspection: normal respiratory effort Auscultation: clear to auscultation bilaterally Cardio Rate: regular rate Rhythm: regular rhythm Heart sounds: S1 normal heart sound present, S2 normal heart sound present and no murmurs Extrem Right lower extremity: no edema Left lower extremity: no edema Psych Appearance: grossly normal Mental Status: mental status grossly normal Speech and movement: Normal speech and movement present Affect: normal affect Attitude: cooperative Thought process: Normal thought process present Insight: Good insight present (Psych) Judgement: Good judgement present (Psych) Coding Level of Care Code Est Pt Prev Care 18-39y([id number]) Diagnoses Pre-op evaluation Z01.818 Additional Codes PHQ-9 - 25180 - PHQ-9 Billing: Yes ([id number]) NAHED-7 Assessment Billing - NAHED-7 Assessment Tool: NAHED-7 Assessment 23393 ([id number]) Assessment & Plan Assessment & Plan (1) Pre-op evaluation: Code(s): Z01.818 - Encounter for other preprocedural examination Category: Medical Plan: labs ordered Orders: Orders Complete Blood Count Auto Diff Today Z01.818 - Encounter for other preprocedural examination Partial Thromboplastin Time Today Z01.818 - Encounter for other preprocedural examination Comprehensive Met. Panel Today Z01.818 - Encounter for other preprocedural examination Prothrombin Time INR Today Z01.818 - Encounter for other preprocedural examination
[2024-08-04 15:09] VITALS: BP 140/80; PULSE 77; O2SAT 97; BMI 32.1
== END 2024-08-04 16:44 | disposition home or self-care (01) ==
PROVIDERS: PCP Nurse Practitioner Family; Visit Provider Nurse Practitioner Family
DX: Z01.818 Encounter for other preprocedural examination (principal)

== ENCOUNTER → 2024-08-04 15:07 | Outpatient (BNVA) | payer OTHER, SELFPAY | PROVIDERS: PCP Nurse Practitioner Family; Visit Provider Nurse Practitioner Family | DX: Z01.818 Encounter for other preprocedural examination (principal); I12.0 Hypertensive chronic kidney disease with stage 5 chronic kidney disease or end stage renal disease; N18.6 End stage renal disease | CPT/HCPCS: 96127; 99212 ==

== ENCOUNTER 2024-10-20 03:23 | Inpatient (IN) | payer OTHER, SELFPAY ==
--- NOTE | ~2024-10-20 | XR_ITS ---
CLINICAL HISTORY: Dialysis patient 1 view chest x-ray Comparison: CR/SR - XR CHEST 1V - 02/21/24 19:32 EDT Findings: No consolidation or effusion. Mild chronic interstitial prominence. Cardiac and mediastinal contours are stable. Right-sided chest port appears well-positioned. No acute fracture. IMPRESSION: Mild chronic interstitial prominence without overt edema or focal consolidation. This document has been electronically signed by: Nish Chavira MD on 10/20/2024 06:15:32
[2024-10-20 03:32] VITALS: BP 195/114; BP 200/140; PULSE 74; PULSE 79; RESP 16; TEMP 36.4; O2SAT 90; O2SAT 99
[2024-10-20 03:35] VITALS: BP 195/114; PULSE 72; RESP 20; TEMP 36.4; O2SAT 99; BMI 34.0
--- NOTE | 2024-10-20 03:40 | PC.NURSE ---
Pt is a&ox4, no signs of distress. Pt reports 4/10 intermittent headache and sob, cc n/v/d x 2 days. Pt missed dialysis today d/t sx. Pt reports was seen here a couple months ago for similar sx. Plan of care ongoing.
[2024-10-20] MEDS: ondansetron HCL 4 MG/2 ML VIAL IVPUSH ×2 (04:43→13:48)
[2024-10-20 04:45] LABS: MANUAL DIFF FLAG NO
[2024-10-20 04:46] LABS: Basophils Percent Auto 0.4 % (0-2); Eosinophils Absolute Auto 0.2 X10*3/uL (0.0-0.4); Eosinophils Percent Auto 2.4 % (0-4); Hematocrit 24.7 % (42.0-52.0); Hemoglobin 8.9 g/dl (14.0-18.0); Imm Gran Abs Auto 0.02 X10*3/uL (0.00-0.03); Imm Gran Pct Auto 0.3 % (0.0-0.4); Lymphocytes Absolute Auto 0.8 X10*3/uL (1.2-4.9); Lymphocytes Percent Auto 11.5 % (20-40); Mean Corpuscular Hemoglobin 32.1 pg (27.0-33.0); Mean Corpuscular Volume 89.2 fL (80.0-98.0); Mean Platelet Volume 10.1 fL (9.4-12.4); Monocytes Absolute Auto 0.5 X10*3/uL (0.1-1.2); Monocytes Percent Auto 7.2 % (2-11); Neutrophils Absolute Auto 5.4 x10*3/uL (2.0-8.3); Neutrophils Percent Auto 78.2 % (45-73); Platelet Count 109 X10*3/uL (160-400); Red Blood Count 2.77 X10*6/uL (4.60-5.80); Red Cell Distribution Width 12.4 % (11.0-16.0)
--- OUTSIDE RECORDS SUMMARY | 2024-10-20 05:01 | XMS_ITS | Encounter Summary ---
Author Organization [facility] Address [address] [place] [address] Phone Care Team Providers Care Arabic Professor Name Role Phone Unavailable Primary Care Provider Unavailabl e Reason for Visit * Reason Comments Med Refill Encounter Details Date Type Department Care Team (Late st Contact Info) Description 10/02/2024 Refill [facility] [address] [place] [address] Jeffery Hicks MD [address] [facility] [address] [place] [address] Social History Tobacco Use Types Packs/Day Years Used Date Smoking Tobacco: Former Cigarettes Alcohol Use Standard Drinks/Week Comments Yes 0 (1 standard drink = 0.6 oz pure alcohol) Alcoholic Drinks/day: Occasional social drink Sex and Gender Information Value Date Recorded Sex Assigned at Not on file Legal Sex Male 4:48 PM EST Gender Identity Not on file Sexual Orientation Not on file documented as of this encounter Plan of Treatment Not on file documented as of this encounter Procedures Procedure Name Priority Date/Time Associated Diagnosis Comments HEMOGLOBIN Routine 10/16/2024 3:00 AM EST COLLECTION DATE (HC) Routine 09/30/2024 3:00 AM EST ALUMINUM LEVEL Routine 09/30/2024 3:00 AM EST documented in this encounter Results * (ABNORMAL) Hemoglobin (10/16/2024 3:00 AM EST) Hgb 8.5(L) 13.7 - 17.5 g/dL [facility] Hemoglobin x 3 25.5(L) 41.1 - 52.5 g/dL [facility] 10/16/2024 3:00 AM EST 2024 2:11 PM EST us Jeffery Hicks MD LAB BLOOD ORDERABLES Final Resu lt Performing Organization Address [facility] de Phone Number [facility]PS [facility] [address] [place] [address] * Collection Date (09/30/2024 3:00 AM EST) Collection Date See Comment [facility] Comment: Patient sample received may exceed specimen stability, based on the collection date electronically provided. ??When reviewing patient results, verify collection information and consider specimen stability before acting on any critical or panic results. 09/30/2024 3:00 AM EST us Jeffery Hicks MD LAB [id number] LICITED RESULTS Final Result Performing Organization Address [facility] de Phone Number [facility] [address] [place] [address] * Aluminum level (09/30/2024 3:00 AM EST) Aluminum 6 1 - 20 ug/L [facility] 09/30/2024 3:00 AM EST 10/01/2024 4:09 PM EST us Jeffery Hicks MD LAB BLOOD ORDERABLES Final Resu lt Performing Organization Address [facility] de Phone Number [facility] [address] [place] [address] documented in this encounter Visit Diagnoses Not on filedocumented in this encounter
--- OUTSIDE RECORDS SUMMARY | 2024-10-20 05:01 | XMS_ITS | Encounter Summary ---
Author Organization [facility] Address [address] [address] Phone Care Team Providers Care Aircraft Structural Repairer Name Role Phone Unavailable Primary Care Provider Unavailabl e Encounter Details Date Type Department Care Team (Late st Contact Info) Description 10/16/2024 Treatment [facility]. [address] [address] Jeffery Hicks MD [address] [address] Social History Tobacco Use Types Packs/Day [...] on file documented as of this encounter Miscellaneous Notes * Dialysis Note - Jeffery Hicks MD - 10/16/2024 12:00 AM EST Patient: Gary Burns : 1995 Note Type: Dialysis Rounds-Basic Telehealth Service Date: 10/16/2024 Telehealth encounter using audiovisual technology, performed according to state requirements. Appropriate patient consent obtained. This patient was personally seen for a basic visit as part of routine monthly dialysis care for end stage renal disease. Attending Coding Validator: JEFFERY HICKS MD Dialysis Location: [facility] Schedule: Shift: 2 OVERVIEW Patient is stable. HOME MEDICATIONS Medications reviewed. Current [facility] Out[facility] Medications ALPRAZolam (Xanax) 0.5 MG tablet Take 1 tablet (0.5 mg total) by mouth every other day if needed for anxiety Start Date: 06/03/2024 atorvastatin (Lipitor) 20 MG tablet Take 1 tablet (20 mg total) by mouth 1 (one) time each day Start Date: 10/02/2023 atorvastatin (LIPITOR) 20 MG tablet TAKE 1 TABLET(20 MG) BY MOUTH 1 TIME EACH DAY Start Date: 08/26/2024 bumetanide (BUMEX) 2 MG tablet Take 2 tablets (4 mg total) by mouth 1 (one) time each day Start Date: 08/26/2024 busPIRone (BUSPAR) 5 MG tablet Take 2 tablets (10 mg total) by mouth 1 (one) time each day Start Date: 09/25/2024 calcitriol (ROCALTROL) capsule Take 0.5 mcg by mouth 1 (one) time each day Taking 8 tablets Start Date: carvedilol (COREG) 12.5 MG tablet TAKE 2 TABLETS(25 MG) BY MOUTH IN THE MORNING AND 2 TABLETS BY MOUTH IN THE EVENING Start Date: 10/05/2024 clonazePAM (KlonoPIN) 0.5 MG tablet Take 0.5 tablets (0.25 mg total) by mouth every night Start Date: 10/26/2022 cloNIDine 0.3 MG/24HR patch weekly Apply 1 patch topically 1 (one) time per week Start Date: 04/07/2024 ergocalciferol (VITAMIN D-2) capsule 50,000 units Take 50,000 Units by mouth 1 (one) time per week Start Date: furosemide (LASIX) 80 MG tablet Take 1 tablet (80 mg total) by mouth 1 (one) time each day Start Date: 06/16/2022 gabapentin (NEURONTIN) 100 MG capsule TAKE ONE CAPSULE BY MOUTH EVERY MORNING, 1 CAPSULE AT NOON, 1 CAPSULE EVERY EVENING, AND 1 CAPSULE EVERY NIGHT AT BEDTIME Start Date: 07/13/2024 hydrALAZINE 25 MG tablet Take 2 tablets (50 mg total) by mouth in the morning and 2 tablets (50 mg total) in the evening and 2 tablets (50 mg total) before bedtime. Start Date: 07/22/2023 lanthanum (Fosrenol) 1000 MG chewable tablet Chew 1 tablet (1,000 mg total) in the morning and 1 tablet (1,000 mg total) at noon and 1 tablet (1,000 mg total) in the evening. Chew with meals. Start Date: 02/12/2024 levETIRAcetam (KEPPRA) tablet Take 500 mg by mouth in the morning and 500 mg in the evening. Start Date: losartan (Cozaar) 100 MG tablet Take 1 tablet (100 mg total) by mouth in the morning and 1 tablet (100 mg total) in the evening. Start Date: 02/17/2024 losartan (Cozaar) 50 MG tablet Take 1 tablet (50 mg total) by mouth in the morning and 1 tablet (50 mg total) in the evening. Start Date: 12/02/2023 NIFEdipine XL (PROCARDIA XL) 60 MG 24 hr tablet Take 1 tablet (60 mg total) by mouth in the morning and 1 tablet (60 mg total) in the evening. Do not crush, chew, or split.. Start Date: 03/09/2024 nitroglycerin (Nitrostat) 0.[address] 1 tablet (0.4 mg total) under the tongue every 5 (five) minutes if needed for chest pain Start Date: 01/08/2024 ondansetron (Zofran) 4 MG tablet Take 1 tablet (4 mg total) by mouth every 8 (eight) hours if needed for nausea or vomiting for up to 60 doses Start Date: 03/06/2023 oxyCODONE (Roxicodone) 5 MG immediate release tablet Take 1 tablet (5 mg total) by mouth every 6 (six) hours if needed for moderate pain Start Date: 08/23/2023 oxyCODONE (ROXICODONE) immediate release tablet Start Date: 08/22/2023 sertraline (Zoloft) 50 MG tablet Take 1 tablet (50 mg total) by mouth 1 (one) time each day Start Date: 03/17/2024 Stimulant Laxative 8.6-50 MG per tablet TAKE 2 TABLETS BY MOUTH EVERY MORNING AND 2 TABLETS EVERY EVENING Start Date: 10/03/2023 Current [facility] Allergies Allergen: CEFUROXIME Reaction: Shortness of breath Severity: High Allergen: LORAZEPAM Reaction: Nausea Allergen: REGLAN [METOCLOPRAMIDE] BP AND FLUID ASSESSMENT Acceptable blood pressure. Fluid status acceptable. ADEQUACY ASSESSMENT Kt/V, Natural Log 1.61 (09/30/24) 1.63 (08/26/24) 1.58 (07/29/24) UREA REDUCTION RATIO (%) 74 (09/30/24) 75 (08/26/24) 74 (07/29/24) BUN 57 (09/30/24) 59 (08/26/24) 61 (07/29/24) BUN Post Dialysis 15 (09/30/24) 15 (08/26/24) 16 (07/29/24) Creatinine 12.17 (09/30/24) 13.68 (08/26/24) 11.72 (07/29/24) Bicarbonate (CO2) 28 (09/30/24) 22 (08/26/24) 27 (07/29/24) Sodium 142 (09/30/24) 141 (08/26/24) 142 (07/29/24) ANEMIA ASSESSMENT Hgb 8.5 (10/16/24) 9.6 (09/30/24) 9.0 (09/14/24) Iron Saturation (TSat) 58 (09/30/24) 91 (08/26/24) 39 (07/29/24) Ferritin 501 (09/30/24) 604 (08/26/24) 371 (07/29/24) Iron 124 (09/30/24) 177 (08/26/24) 82 (07/29/24) TIBC 213 (09/30/24) 195 (08/26/24) 213 (07/29/24) MCV 95.4 (09/30/24) 94.0 (08/26/24) 99.4 (07/29/24) Platelets 121 (09/30/24) 90 (08/26/24) 111 (07/29/24) BMM ASSESSMENT Calcium, Adjusted Total 8.4 09/30/24 7.7 08/26/24 7.8 07/29/24 Calcium 8.4 09/30/24 7.6 08/26/24 7.8 07/29/24 Phosphorus, Serum 7.6 09/30/24 8.9 08/26/24 8.4 08/12/24 Ca*PO4 63.8 09/30/24 67.6 08/26/24 100.6 07/29/24 PTH, Intact 1,324 09/30/24 1,205 08/26/24 1,288 08/12/24 Vitamin D, 25-Hydroxy 15 09/30/24 Magnesium 2.0 09/30/24 1.9 08/26/24 2.0 07/29/24 Alkaline Phosphatase 148 09/30/24 135 08/26/24 120 07/29/24 Aluminum 6 09/30/24 NUTRITION ASSESSMENT Albumin 4.0 09/30/24 3.9 08/26/24 4.1 07/29/24 Potassium 4.3 09/30/24 5.5 08/26/24 5.6 07/29/24 ADDITIONAL LABS White Blood Cells 4.7 (09/30/24) 6.8 (08/26/24) 4.9 (07/29/24) Cholesterol 114 (09/30/24) HDL 28 (09/30/24) LDL-Calc 49 (09/30/24) Triglycerides 183 (09/30/24) Hep B Surface Antibody 905 (09/30/24) Uric Acid 5.6 (09/30/24) Signed by: JEFFERY HICKS MD on 10/19/2024 at 11:34:20 AM documented in this encounter Plan of Treatment Not on file documented as of this encounter Visit Diagnoses Not on filedocumented in this encounter
--- OUTSIDE RECORDS SUMMARY | 2024-10-20 05:01 | XMS_ITS | Clinical Summary ---
Author Organization [facility] Address [address] [place] [phone] Phone Care Team Providers Care Boring Machine Set Up Operator Name Role Phone Kalen Kerns MD Primary Care Provider [phone] Allergies No known active allergies Medications cloNIDine 0.2 MG tablet 05/27/2018 Active HP ACTHAR 80 UNIT/ML injectable gel 05/06/2018 Active Family History Medical History Relation Name Comments No Known Problems Mother quique Relation Name Status Comments Father missy Alive Mother quique Alive Social History Tobacco Use Types Packs/Day Years Used Date Smoking Tobacco: Every Day Cigarettes Sex and Gender Information Value Date Recorded Sex Assigned at Not on file Legal Sex Male 4:43 PM EDT Gender Identity Not on file Sexual Orientation Not on file Last Filed Vital Signs Vital Sign Reading Time Taken Comments Blood Pressure 160/102 05/28/2018 11:38 AM EDT Pulse 76 05/28/2018 10:51 AM EDT Temperature 36.7 ??C (98.1 ??F) 05/28/2018 10:51 AM E DT Respiratory Rate - - Oxygen Saturation - - Inhaled Oxygen Concentration - - Weight 87.6 kg (193 lb 3 oz) 05/28/2018 10:51 AM EDT Height 183.5 cm (6' 0.25 ) 05/28/2018 10:51 AM E DT Body Mass Index 26.02 05/28/2018 10:51 AM EDT Plan of Treatment Health Maintenance Due Date Last Done Comments Consider Men B Vaccine (1 of 2 - Bexsero 2-dose series) 2010 DTaP,Tdap,and Td Vaccines (1 - Tdap) 2012 Hepatitis B Vaccines (1 of 3 - 19+ 3-dose series) 2013 Varicella Vaccines (1 of 2 - 13+ 2-dose series) 05/17/2021 Influenza Vaccines (#1) 2024 08/25/20, 08/14/2019, 07/26/2017 COVID-19 Vaccine (3 - 2023-2 5 season) 2024 12/15/2020, 11/03/2020 Meningococcal Vaccine Aged Out 03/01/2017 No josue dashawn eligible based on patient's age to complete this topic Pneumococcal Vaccine Aged Out 07/26/2017 No long er eligible based on patient's age to complete this topic MMR Vaccines Completed 04/19/2021 HIB Vaccines Aged Out No longer eligi ble based on patient's age to complete this topic HPV Vaccines Aged Out No longer eligi ble based on patient's age to complete this topic Hepatitis A Vaccines Aged Out No long er eligible based on patient's age to complete this topic IPV Vaccines Aged Out No longer eligi ble based on patient's age to complete this topic Men B Vaccine Aged Out No longer elig ible based on patient's age to complete [place] [address] [facility] OTHER O O Care Teams Boring Machine Set Up Operator Relationship Specialty Start Date End Date Kalen Kerns MD [address] [place] [address] [place] [address] PCP - General Pediatrics 05/27/18
--- OUTSIDE RECORDS SUMMARY | 2024-10-20 05:01 | XMS_ITS | Encounter Summary ---
Author Organization [facility] Address [address] [place] [address] Phone Care Team Providers Care Supervisor Mapping Name Role Phone Annmarie Ba MD Primary Care Provider Unavailabl e Encounter Details Date Type Department Care Team (Late st Contact Info) Description 10/19/2022 Office Communication [facility] [address] [place] [address] Edith Garcia, RN [address] [place] [address] Social History Tobacco Use Types Packs/Day Years Used Date Smoking Tobacco: Every Day Cigarettes Alcohol Use Standard Drinks/Week Comments Yes [...] Diagnoses Not on filedocumented in this encounter Care Teams Supervisor Mapping Relationship Specialty Start Date End Date Annmarie Ba MD PCP - General 10/03/20 06/22/24 documented as of this encounter
--- OUTSIDE RECORDS SUMMARY | 2024-10-20 05:01 | XMS_ITS | Clinical Summary ---
Author Organization Formerly [facility] Facility Address [address] [place] [address] Care Team Providers Care Renewable Energy Technician Name Role Phone Unavailable Primary Care Provider Unavailabl e Allergies Active Allergy Reactions Criticality Noted Date Comments Cefuroxime Shortness of breath High 08/14/2023 Difficult breathing Lorazepam Nausea 08/14/2023 Metoclopramide 08/14/2023 Panic attack Medications calcitriol (ROCALTROL) 0.25 MCG capsule Take 0.5 mcg by mouth 1 (one) time each day Taking 8 tablets Active furosemide (LASIX) 80 MG tablet Take 1 tablet (80 mg total) by mouth 1 (one) time each day 90 tablet 3 06/16/20 22 Active clonazePAM (KlonoPIN) 0.5 MG tablet Take 0.5 tablets (0.25 mg total) by mouth every night 15 tablet 5 10/26/19 23 Active ondansetron (Zofran) 4 MG tablet Take 1 tablet (4 mg total) by mouth every 8 (eight) hours if needed for nausea or vomiting for up to 60 doses 60 tablet 03/06/20 23 Active hydrALAZINE 25 MG tablet Take 2 tablets (50 mg total) by mouth in the morning and 2 tablets (50 mg total) in the evening and 2 tablets (50 mg total) before bedtime. 180 tablet 3 07/22/20 23 Active levETIRAcetam (KEPPRA) 500 MG tablet Take 500 mg by mouth in the morning and 500 mg in the evening. Active ergocalciferol 1.25 MG (97693 UT) capsule Take 50,000 Units by mouth 1 (one) time per week Active oxyCODONE (ROXICODONE) 5 MG immediate release tablet 08/22/20 23 Active oxyCODONE (Roxicodone) 5 MG immediate release tablet Take 1 tablet (5 mg total) by mouth every 6 (six) hours if needed for moderate pain 12 tablet 08/23/20 23 Active Stimulant Laxative 8.6-50 MG per tablet TAKE 2 TABLETS BY MOUTH EVERY MORNING AND 2 TABLETS EVERY EVENING 120 tablet 10/03/19 24 Active atorvastatin (Lipitor) 20 MG tablet Take 1 tablet (20 mg total) by mouth 1 (one) time each day 30 tablet 10/02/19 24 Active losartan (Cozaar) 50 MG tablet Take 1 tablet (50 mg total) by mouth in the morning and 1 tablet (50 mg total) in the evening. 120 tablet 12/02/19 24 Active nitroglycerin (Nitrostat) 0.[address] 1 tablet (0.4 mg total) under the tongue every 5 (five) minutes if needed for chest pain 90 tablet 01/08/20 24 025 Active lanthanum (Fosrenol) 1000 MG chewable tablet Chew 1 tablet (1,000 mg total) in the morning and 1 tablet (1,000 mg total) at noon and 1 tablet (1,000 mg total) in the evening. Chew with meals. 180 tablet 02/12/20 24 Active losartan (Cozaar) 100 MG tablet Take 1 tablet (100 mg total) by mouth in the morning and 1 tablet (100 mg total) in the evening. 120 tablet 02/17/20 24 Active NIFEdipine XL (PROCARDIA XL) 60 MG 24 hr tablet Take 1 tablet (60 mg total) by mouth in the morning and 1 tablet (60 mg total) in the evening. Do not crush, chew, or split.. 120 tablet 03/09/20 24 Active sertraline (Zoloft) 50 MG tablet Take 1 tablet (50 mg total) by mouth 1 (one) time each day 90 tablet 03/17/20 24 025 Active cloNIDine 0.3 MG/24HR patch weekly Apply 1 patch topically 1 (one) time per week 4 patch 3 04/07/20 24 Active ALPRAZolam (Xanax) 0.5 MG tablet Take 1 tablet (0.5 mg total) by mouth every other day if needed for anxiety 15 tablet 5 06/03/20 24 025 Active gabapentin (NEURONTIN) 100 MG capsule TAKE ONE CAPSULE BY MOUTH EVERY MORNING, 1 CAPSULE AT NOON, 1 CAPSULE EVERY EVENING, AND 1 CAPSULE EVERY NIGHT AT BEDTIME 120 capsule 3 07/13/20 24 Active atorvastatin (LIPITOR) 20 MG tablet TAKE 1 TABLET(20 MG) BY MOUTH 1 TIME EACH DAY 30 tablet 3 08/26/20 24 Active bumetanide (BUMEX) 2 MG tablet Take 2 tablets (4 mg total) by mouth 1 (one) time each day 60 tablet 6 08/26/20 24 025 Active busPIRone (BUSPAR) 5 MG tablet Take 2 tablets (10 mg total) by mouth 1 (one) time each day 60 tablet 6 09/25/19 25 025 Active carvedilol (COREG) 12.5 MG tablet TAKE 2 TABLETS(25 MG) BY MOUTH IN THE MORNING AND 2 TABLETS BY MOUTH IN THE EVENING 360 tablet 3 10/05/19 25 Active carvedilol (Coreg) 12.5 MG tablet Take 2 tablets (25 mg total) by mouth in the morning and 2 tablets (25 mg total) in the evening. 360 tablet 3 10/02/19 24 025 Discontinued Active Problems Problem Noted Date Diagnosed Date Obese class I 03/13/2022 Depressive disorder 03/12/2022 Dependence on renal dialysis 03/12/2022 Chronic kidney disease stage 2 03/12/2022 Chronic kidney disease stage 3 03/12/2022 Bone marrow finding 03/12/2022 Anemia 03/12/2022 Disorder of immune function 03/12/2022 Hematemesis 03/12/2022 Unspecified drug dependence, unspecified use Hypertensive disorder 03/12/2022 Needs influenza immunization 03/12/2022 Patient encounter status 03/12/2022 Smoker 03/12/2022 Laparoscopic appendectomy 02/04/2021 Cannabis abuse 02/09/2020 Attention deficit hyperactivity disorder 020 Anxiety 02/09/2020 Anemia in chronic kidney disease 02/09/2020 History of tonsillectomy 02/09/2020 Heroin dependence 02/09/2020 H/O: depression 02/09/2020 Ex-smoker 02/09/2020 Excessive daytime sleepiness - normal night slee p 02/09/2020 End-stage renal disease 02/09/2020 Intravenous drug user 02/09/2020 Hypertensive renal disease with renal failure 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 02/09/2020 Hypertensive heart and renal disease with (congestive) heart failure 02/09/2020 Kidney biopsy result borderline abnormal 020 Migraine without aura 02/09/2020 Glomerulonephritis 02/09/2020 Peritoneal dialysis catheter in situ 02/09/2020 Osteomyelitis of vertebra 02/09/2020 Nocturnal enuresis 02/09/2020 Tonsillectomy and adenoidectomy 02/09/2020 Sleep apnea 02/09/2020 Encounters Date Type Department Care Team Description 10/16/2024 Treatment [facility] [address] [address] Jeffery Hicks MD 10/13/2024 Treatment [facility] [address] [address] Jeffery Hicks MD 10/02/2024 Refill [facility] [address] [facility] [address] [place] [address] Jeffery Hicks MD 09/30/2024 Treatment [facility] [address] [address] Jeffery Hicks MD 09/25/2024 Treatment [facility] [address] [address] Jeffery Hicks MD 09/22/2024 Treatment [facility] [address] [address] Jeffery Hicks MD 09/14/2024 Treatment [facility] [address] [address] Bobby Bhandari MD 09/04/2024 Treatment [facility] [address] [address] Jeffery Hicks MD 08/26/2024 Treatment [facility] [address] [place] [address] Jeffery Hicks MD 08/25/2024 Refill [facility] [address] [facility] [address] [place] [address] Jeffery Hicks MD 08/12/2024 Treatment [facility] [address] [place] [address] Jeffery Hicks MD 08/05/2024 Treatment [facility] [address] [place] [address] [address] [place] [address] Jeffery Hicks MD 07/29/2024 Treatment [facility] [address] [place] [phone] Jeffery Hicks MD 07/24/2024 Treatment [facility] [address] [place] [address] Jeffery Hicks MD 07/20/2024 Treatment [facility] [address] [address] Jeffery Hicks MD from Last 3 Months Immunizations Name Administration Dates Next Due Influenza, Unspecified 08/25/2021,08/14/2019,11/2016 MMR 04/19/2021 Meningococcal MCV4P 03/01/2017 Moderna SARS-COV-2 12/15/2020,11/03/2020 Pneumococcal Polysaccharide 07/26/2017 Social History Tobacco Use Types Packs/Day Years Used Date Smoking Tobacco: Former Cigarettes Tobacco Cessation:Counseling Given: Not Answered Alcohol Use Standard Drinks/Week Comments Yes 0 (1 standard drink = 0.6 oz pure alcohol) Alcoholic Drinks/day: Occasional social drink Sex and Gender Information Value Date Recorded Sex Assigned at Not on file Legal Sex Male 4:48 PM EST Gender Identity Not on file Sexual Orientation Not on file Last Filed Vital Signs Vital Sign Reading Time Taken Comments Blood Pressure 130/89 08/23/2023 3:49 PM EST Pulse 93 08/23/2023 3:49 PM EST Temperature 36.4 ??C (97.5 ??F) 08/23/2023 3:49 PM ES T Respiratory Rate - - Oxygen Saturation 97% 08/23/2023 3:49 PM EST Inhaled Oxygen Concentration - - Weight 88.5 kg (195 lb) 08/23/2023 3:49 PM EST Height 182.9 cm (6') 08/23/2023 3:49 PM EST Body Mass Index 26.45 08/23/2023 3:49 PM EST Plan of Treatment Health Maintenance Due Date Last Done Comments Hepatitis B Vaccine (1 of 5 - Risk Dialysis 4-dose series) 2014 Pneumococcal Vaccine: Pediat rics (0 to 5 Years) and At-Risk Patients (6 to 64 Years) (2 of 2 - PCV) 07/26/2018 07/26/2017 Influenza Vaccine (#1) 2024 2, 08/25/2021, 08/14/2019, Additional history exists Procedures Procedure Name Priority Date/Time Associated Diagnosis Comments HEMOGLOBIN Routine 10/16/2024 3:00 AM EST COLLECTION DATE (HC) Routine 09/30/2024 3:00 AM EST ALUMINUM LEVEL Routine 09/30/2024 3:00 AM EST HEPATITIS C ABS W/REFLEX RNA DETECTR Routine 09/30/2024 3:00 AM EST CONFIRMATION TEST HCV Routine 09/30/2024 3:00 AM EST HEPATITIS B SURFACE ANTIGEN W/REFL CONFIRM Routine 09/30/2024 3:00 AM EST TRANSFERRIN SATURATION Routine 3:00 AM EST URIC ACID Routine 09/30/2024 3:00 AM EST PROTEIN, TOTAL, SERUM Routine 09/30/2024 3:00 AM EST KT/V NATURAL LOG, URR (HC) Routine 09/30/2024 3:00 AM EST MAGNESIUM Routine 09/30/2024 3:00 AM EST LIPID PANEL Routine 09/30/2024 3:00 AM EST ELECTROLYTE PANEL Routine 09/30/2024 3:0 0 AM EST LIH (HC) Routine 09/30/2024 3:00 AM EST LACTATE DEHYDROGENASE Routine 09/30/2024 3:00 AM EST GLUCOSE, RANDOM Routine 09/30/2024 3:00 AM EST CREATININE, SERUM Routine 09/30/2024 3:0 0 AM EST AST Routine 09/30/2024 3:00 AM EST BILIRUBIN, TOTAL Routine 09/30/2024 3:00 AM EST ALT Routine 09/30/2024 3:00 AM EST CALCIUM PHOSPHORUS PRODUCT, ADJUSTED (HC) Routine 09/30/2024 3:00 AM EST ALKALINE PHOSPHATASE Routine 09/30/2024 3:00 AM EST VITAMIN D 25 HYDROXY Routine 09/30/2024 3:00 AM EST FERRITIN Routine 09/30/2024 3:00 AM EST PTH, INTACT Routine 09/30/2024 3:00 AM EST HEPATITIS B SURFACE ANTIBODY QUANT Routine 09/30/2024 3:00 AM EST CBC AND DIFFERENTIAL Routine 09/30/2024 3:00 AM EST HEMOGLOBIN Routine 09/14/2024 3:00 AM EST HEMOGLOBIN Routine 09/09/2024 3:00 AM EST FERRITIN Routine 08/26/2024 3:00 AM EST PTH, INTACT Routine 08/26/2024 3:00 AM EST PROTEIN, TOTAL, SERUM Routine 08/26/2024 3:00 AM EST TRANSFERRIN SATURATION Routine 3:00 AM EST KT/V NATURAL LOG, URR (HC) Routine 08/26/2024 3:00 AM EST MAGNESIUM Routine 08/26/2024 3:00 AM EST ELECTROLYTE PANEL Routine 08/26/2024 3:0 0 AM EST LACTATE DEHYDROGENASE Routine 08/26/2024 3:00 AM EST LIH (HC) Routine 08/26/2024 3:00 AM EST GLUCOSE, RANDOM Routine 08/26/2024 3:00 AM EST BILIRUBIN, TOTAL Routine 08/26/2024 3:00 AM EST CREATININE, SERUM Routine 08/26/2024 3:0 0 AM EST AST Routine 08/26/2024 3:00 AM EST ALT Routine 08/26/2024 3:00 AM EST ALKALINE PHOSPHATASE Routine 08/26/2024 3:00 AM EST CALCIUM PHOSPHORUS PRODUCT, ADJUSTED (HC) Routine 08/26/2024 3:00 AM EST CBC AND DIFFERENTIAL Routine 08/26/2024 3:00 AM EST PHOSPHATE ( PHOSPHORUS) Routine 08/12/2024 3:00 AM EST LIH () Routine 08/12/2024 3:00 AM EST PTH, INTACT Routine 08/12/2024 3:00 AM EST COLLECTION DATE () Routine 07/29/2024 3:00 AM EST HEPATITIS B SURFACE ANTIGEN W/REFL CONFIRM Routine 07/29/2024 3:00 AM EST TRANSFERRIN SATURATION Routine 3:00 AM EST KT/V NATURAL LOG, URR () Routine 07/29/2024 3:00 AM EST MAGNESIUM Routine 07/29/2024 3:00 AM EST PROTEIN, TOTAL, SERUM Routine 07/29/2024 3:00 AM EST ELECTROLYTE PANEL Routine 07/29/2024 3:0 0 AM EST LIH () Routine 07/29/2024 3:00 AM EST LACTATE DEHYDROGENASE Routine 07/29/2024 3:00 AM EST CREATININE, SERUM Routine 07/29/2024 3:0 0 AM EST GLUCOSE, RANDOM Routine 07/29/2024 3:00 AM EST BILIRUBIN, TOTAL Routine 07/29/2024 3:00 AM EST ALKALINE PHOSPHATASE Routine 07/29/2024 3:00 AM EST AST Routine 07/29/2024 3:00 AM EST ALT Routine 07/29/2024 3:00 AM EST CALCIUM PHOSPHORUS PRODUCT, ADJUSTED (HC) Routine 07/29/2024 3:00 AM EST FERRITIN Routine 07/29/2024 3:00 AM EST CBC AND DIFFERENTIAL Routine 07/29/2024 3:00 AM EST from Last 3 Months Results * (ABNORMAL) Hemoglobin (10/16/2024 3:00 AM EST) Only the most recent of3 resultswithin the time period is included. Hgb 8.5(L) 13.7 - 17.5 g/dL [facility] Hemoglobin x 3 25.5(L) 41.1 - 52.5 g/dL [facility] 10/16/2024 3:00 AM EST 2024 2:11 PM EST Jeffery Hicks MD LAB BLOOD ORDERABLES Final Resu lt Performing Organization Address City/State/[facility] [facility] Co de Phone Number [facility] [address] [place] [address] * Confirmation Test HCV (09/30/2024 3:00 AM EST) Hep C Ab Confirmation Not needed [facility] 09/30/2024 3:00 AM EST 10/01/2024 4:01 PM EST Jeffery Hicks MD LAB BLOOD ORDERABLES Final Resu lt Performing Organization Address City/[facility]/ZIP Co de Phone Number [facility] [address] [place] [address] * Collection Date (09/30/2024 3:00 AM EST) Only the most recent of2 resultswithin the time period is included. Collection Date See Comment [facility] Comment: Patient sample received may exceed specimen stability, based on the collection date electronically provided. ??When reviewing patient results, verify collection information and consider specimen stability before acting on any critical or panic results. 09/30/2024 3:00 AM EST us Jeffery Hicks MD LAB [id number] LICITED RESULTS Final Result Performing Organization Address City/[facility]/ZIP Co de Phone Number [facility] [address] [place] [address] * LIH (09/30/2024 3:00 AM EST) Only the most recent of4 resultswithin the time period is included. Lipemia Normal Normal [facility] Icterus Normal Normal [facility] Hemolysis Normal Normal [facility] 09/30/2024 3:00 AM EST 10/01/2024 4:02 PM EST us Jeffery Hicks MD LAB [id number] LICITED RESULTS Final Result Performing Organization Address [facility] de Phone Number [facility] [address] [place] [address] * (ABNORMAL) Kt/V Natural Log, URR (09/30/2024 3:00 AM EST) Only the most recent of3 resultswithin the time period is included. BUN 57(H) 7 - 25 mg/dL [facility] Treatment Time 244 min [facility] Pre-Weight, lb 108.3 kg [facility] Post-Weight, lb 103.6 kg [facility] Ultrafiltration Rate 11 <=13 mL/kg/hr [facility] Comment: Recommend achieving Ultrafiltration Rate (UFR) <=10 mL/kg/hr References: Meghan SEQUEIRA et al. Kidney Int. 2010; 79(2):250-257 BUN Post Dialysis 15 7 - 25 mg/dL [facility] UREA REDUCTION RATIO (%) 74 >=65 % [facility] Kt/V Natural Log 1.61 >=1.2 [facility] 09/30/2024 3:00 AM EST 10/01/2024 4:02 PM EST us Jeffery Hicks MD LAB [id number] LICITED RESULTS Final Result Performing Organization Address City/[facility] Co de Phone Number [facility] [address] [place] [address] * (ABNORMAL) Calcium Phosphorus Product, Adjusted (09/30/2024 3:00 AM EST) Only the most recent of3 resultswithin the time period is included. [facility] Albumin 4.0 3.6 - 5.4 g/dL [facility] Calcium 8.4(L) 8.6 - 10.3 mg/dL [facility] Phosphorus, Serum 7.6(H) 2.5 - 5.0 mg/dL [facility] Ca*PO4 63.8(A) <55.0 mg2/dL2 [facility] Calcium, Adjusted Total 8.4(L) 8.6 - 10.3 mg/dL [facility] CA*PO4 CORRCTD 63.8(A) <55.0 mg2/dL2 [facility] 09/30/2024 3:00 AM EST 10/01/2024 4:02 PM EST us Jeffery Hicks MD LAB [id number] LICITED RESULTS Final Result Performing Organization Address City/[facility]/ZIP Co de Phone Number [facility] [address] [place] [address] * HEPATITIS C ABS W/REFLEX RNA DETECTR (09/30/2024 3:00 AM EST) [facility] Hep C Virus Ab Non-Reacti ve Non-Reacti ve [facility] 09/30/2024 3:00 AM EST 10/01/2024 4:02 PM EST Jeffery Hicks MD LAB [id number] LICITED RESULTS Final Result Performing Organization Address [facility] Co de Phone Number [facility] [address] [place] [address] * Hepatitis B Surface Ag w/Reflex Confirmation (09/30/2024 3:00 AM EST) Only the most recent of2 resultswithin the time period is included. [facility] Hep B Surface Antigen Negative Negative [facility] 09/30/2024 3:00 AM EST 10/01/2024 4:02 PM EST us Jeffery Hicks MD LAB BLOOD ORDERABLES Final Resu lt Performing Organization Address [facility] de Phone Number [facility] [address] [place] [address] * (ABNORMAL) TSAT (09/30/2024 3:00 AM EST) Only the most recent of3 resultswithin the time period is included. Iron 124 65 - 175 ug/dL [facility] Transferrin 152(L) 215 - 365 mg/dL [facility] TIBC 213 211 - 406 ug/dL [facility] Iron Saturation (TSat) 58(H) 22 - 52 % [facility] 09/30/2024 3:00 AM EST 10/01/2024 4:02 PM EST us Jeffery Hicks MD LAB BLOOD ORDERABLES Final Resu lt Performing Organization Address [facility] de Phone Number [facility] [address] [place] [address] * Aluminum level (09/30/2024 3:00 AM EST) Aluminum 6 1 - 20 ug/L [facility] 09/30/2024 3:00 AM EST 10/01/2024 4:09 PM EST us Jeffery Hicks MD LAB BLOOD ORDERABLES Final Resu lt Performing Organization Address [facility] de Phone Number [facility] [address] [place] [address] * Vitamin D 25 Hydroxy (09/30/2024 3:00 AM EST) Vitamin D, 25-Hydroxy 15 30 - 100 ng/mL [facility] Comment: Status ? Adult ?? Pediatric Deficient: ? <20 ? <15 Insufficient: ??20-29 ?? 15-19 Sufficient: ?30-100 ??20-100 09/30/2024 3:00 AM EST 10/01/2024 4:02 PM EST us Jeffery Hicks MD LAB BLOOD ORDERABLES Final Resu lt Performing Organization Address City/[facility]/ZIP Co de Phone Number [facility] [address] [place] [address] * Hepatitis B Surface Antibody (09/30/2024 3:00 AM EST) Pathologist [facility] Hep B Surface Antibody 905 mIU/mL [facility] Comment: Interpretation: <10: No Immunity >=10: Probable Immunity 09/30/2024 3:00 AM EST 10/01/2024 4:02 PM EST us Jeffery Hicks MD LAB BLOOD ORDERABLES Final Resu Performing Organization Address [facility] de Phone Number [facility] [address] [place] [address] * (ABNORMAL) CBC and Differential (09/30/2024 3:00 AM EST) Only the most recent of3 resultswithin the time period is included. [facility] DIFFERENTIAL MANUAL, 2 Not Indicated [facility] White Blood Cells 4.7 4.2 - 9.1 K/uL [facility] RBC 3.06(L) 4.63 - 6.08 M/uL [facility] Hgb 9.6(L) 13.7 - 17.5 g/dL [facility] Hemoglobin x 3 28.8(L) 41.1 - 52.5 g/dL [facility] Hematocrit 29.2(L) 40.1 - 51.0 % [facility] MCV 95.4(H) 79.0 - 92.2 fL [facility] MCH 31.4 25.7 - 32.2 pg [facility] MCHC 32.9 32.3 - 36.5 g/dL [facility] Platelets 121(L) 163 - 337 K/uL [facility] RDW 12.3 11.6 - 14.4 % [facility] Neutrophils Relative 51.8 34.0 - 67.9 % [facility] Lymphocytes Relative 32.6 21.8 - 53.1 % [facility] Monocytes 10.7 5.3 - 12.2 % [facility] Eosinophils Relative 3.8 0.8 - 7.0 % [facility] Basophils Relative 0.9 0.2 - 1.2 % [facility] Immature Granulocytes 0.2 0.0 - 1.0 % [facility] 09/30/2024 3:00 AM EST 10/01/2024 4:01 PM EST us Jeffery Hicks MD LAB BLOOD ORDERABLES Final Resu lt Performing Organization Address [facility] de Phone Number [facility] [address] [place] [address] * Uric Acid (09/30/2024 3:00 AM EST) Uric Acid 5.6 4.4 - 7.6 mg/dL [facility] 09/30/2024 3:00 AM EST 10/01/2024 4:02 PM EST us Jeffery Hicks MD LAB BLOOD ORDERABLES Final Resu lt Performing Organization Address [facility] de Phone Number [facility] [address] [place] [address] * (ABNORMAL) ALT (09/30/2024 3:00 AM EST) Only the most recent of3 resultswithin the time period is included. ALT (SGPT) 8(L) 10 - 49 U/L [facility] 09/30/2024 3:00 AM EST 10/01/2024 4:02 PM EST us Jeffery Hicks MD LAB BLOOD ORDERABLES Final Resu lt Performing Organization Address [facility] de Phone Number [facility] [address] [place] [address] * AST (09/30/2024 3:00 AM EST) Only the most recent of3 resultswithin the time period is included. AST (SGOT) 10 <34 U/L [facility] 09/30/2024 3:00 AM EST 10/01/2024 4:02 PM EST us Jeffery Hicks MD LAB BLOOD ORDERABLES Final Resu Performing Organization Address [facility]/ZIP Co de Phone Number [facility] [address] [place] [address] * (ABNORMAL) Protein, total (09/30/2024 3:00 AM EST) Only the most recent of3 resultswithin the time period is included. Total Protein 6.1(L) 6.4 - 8.9 g/dL [facility] 09/30/2024 3:00 AM EST 10/01/2024 4:02 PM EST us Jeffery Hicks MD LAB BLOOD ORDERABLES Final Resu Performing Organization Address [facility] de Phone Number [facility] [address] [place] [address] * (ABNORMAL) Alkaline phosphatase (09/30/2024 3:00 AM EST) Only the most recent of3 resultswithin the time period is included. Alkaline Phosphatase 148(H) 46 - 116 U/L [facility] 09/30/2024 3:00 AM EST 10/01/2024 4:02 PM EST us Jeffery Hicks MD LAB BLOOD ORDERABLES Final Resu Performing Organization Address [facility] Co de Phone Number [facility] [address] [place] [address] * (ABNORMAL) PTH, Intact (09/30/2024 3:00 AM EST) Only the most recent of3 resultswithin the time period is included. PTH, Intact 1,324(H) 160 - 721 pg/mL [facility] Comment: Suggested (KDIGO) ESRD maintenance range is two to nine times the upper normal limit (80.1 pg/mL) for the laboratory. 09/30/2024 3:00 AM EST 10/01/2024 4:02 PM EST us Jeffery Hicks MD LAB BLOOD ORDERABLES Final Resu lt Performing Organization Address [facility]/ZIP Co de Phone Number [facility] [address] [place] [address] * Magnesium (09/30/2024 3:00 AM EST) Only the most recent of3 resultswithin the time period is included. Magnesium 2.0 1.9 - 2.7 mg/dL [facility] 09/30/2024 3:00 AM EST 10/01/2024 4:02 PM EST us Jeffery Hicks MD LAB BLOOD ORDERABLES Final Resu lt Performing Organization Address [facility] de Phone Number [facility] [address] [place] [address] * Lactate dehydrogenase (09/30/2024 3:00 AM EST) Only the most recent of3 resultswithin the time period is included. LDH 169 120 - 246 U/L [facility] 09/30/2024 3:00 AM EST 10/01/2024 4:02 PM EST us Jeffery Hicks MD LAB BLOOD ORDERABLES Final Resu lt Performing Organization Address [facility] de Phone Number [facility] [address] [place] [address] * Glucose, random (09/30/2024 3:00 AM EST) Only the most recent of3 resultswithin the time period is included. Glucose 95 74 - 109 mg/dL [facility] 09/30/2024 3:00 AM EST 10/01/2024 4:02 PM EST us Jeffery Hicks MD LAB BLOOD ORDERABLES Final Resu lt Performing Organization Address [facility] Co de Phone Number [facility] [address] [place] [address] * (ABNORMAL) Ferritin (09/30/2024 3:00 AM EST) Only the most recent of3 resultswithin the time period is included. Ferritin 501(H) 22 - 322 ng/mL [facility] 09/30/2024 3:00 AM EST 10/01/2024 4:02 PM EST us Jeffery Hicks MD LAB BLOOD ORDERABLES Final Resu lt Performing Organization Address [facility] de Phone Number [facility] [address] [place] [address] * (ABNORMAL) Creatinine, serum (09/30/2024 3:00 AM EST) Only the most recent of3 resultswithin the time period is included. Creatinine 12.17(H) 0.70 - 1.30 mg/dL [facility] 09/30/2024 3:00 AM EST 10/01/2024 4:02 PM EST us Jeffery Hicks MD LAB BLOOD ORDERABLES Final Resu lt Performing Organization Address [facility] de Phone Number [facility] [address] [place] [address] * (ABNORMAL) Bilirubin, total (09/30/2024 3:00 AM EST) Only the most recent of3 resultswithin the time period is included. Total Bilirubin 0.2(L) 0.3 - 1.2 mg/dL [facility] 09/30/2024 3:00 AM EST 10/01/2024 4:02 PM EST us Jeffery Hicks MD LAB BLOOD ORDERABLES Final Resu lt Performing Organization Address [facility] de Phone Number [facility] [address] [place] [address] * (ABNORMAL) Lipid panel (09/30/2024 3:00 AM EST) Cholesterol 114 <200 mg/dL [facility] Comment: Optimal: ?<200 Borderline: ? 200-239 Higher Risk: ?>239 Triglycerides 183(A) <150 mg/dL [facility] Comment: Optimal: ?<150 Borderline High: ??150-199 High: ? 200-499 Very High: ?>499 HDL 28(A) >59 mg/dL [facility] Comment: Desirable: ?>59 Higher Risk: ?<40 LDL-Calc 49 <100 mg/dL [facility] Comment: Optimal: ?<100 Above Optimal: ?100-129 Borderline High: ??130-159 High: ? 160-189 Very High: ?>189 VLDL Cholesterol Emiliano 37(A) <30 mg/dL [facility] Comment: Optimal: ?<30 Borderline High: ??30-39 High: ? 40-99 Very High: ?>99 Chol/HDL Ratio 4.1(A) <3.3 [facility] Comment: Optimal: ?<3.3 Higher Risk: ?>6.2 09/30/2024 3:00 AM EST 10/01/2024 4:02 PM EST us Jeffery Hicks MD LAB BLOOD ORDERABLES Final Resu lt [facility] [address] [place] [address] * Electrolyte panel (09/30/2024 3:00 AM EST) Only the most recent of3 resultswithin the time period is included. Sodium 142 136 - 145 mEq/L [facility] Potassium 4.3 3.4 - 5.0 mEq/L [facility] Chloride 101 98 - 107 mEq/L [facility] Bicarbonate (CO2) 28 21 - 31 mEq/L [facility] Anion Gap 13 3 - 14 mEq/L [facility] 09/30/2024 3:00 AM EST 10/01/2024 4:02 PM EST us Jeffery Hicks MD LAB BLOOD ORDERABLES Final Resu lt [facility] [address] [place] [address] * (ABNORMAL) Phosphorus (08/12/2024 3:00 AM EST) Phosphorus, Serum 8.4(H) 2.5 - 5.0 mg/dL [facility] 08/12/2024 3:00 AM EST 08/13/2024 1:46 PM EST us Jeffery Hicks MD LAB BLOOD ORDERABLES Final Resu lt Performing Organization Address [facility] Co de Phone Number [facility] [address] [place] [address] from Last 3 Months Insurance [facility] ([id number]) JOS [place]GRON [id number] [facility] ([id number]) [facility] ([id number])
--- OUTSIDE RECORDS SUMMARY | 2024-10-20 05:01 | XMS_ITS | Encounter Summary ---
Author Organization [facility] Address [address] [place] [address] Phone Care Team Providers Care Toolroom Checker Name Role Phone Annmarie Ba MD Primary Care Provider Unavailabl e Reason for Visit * Reason Comments Med Refill Encounter Details Date Type Department Care Team (Late st Contact Info) Description 10/08/2023 Refill [facility] [address] [place] [address] Josefina Durbin MD Social History Tobacco Use Types Packs/Day Years [...] on filedocumented in this encounter Care Teams Toolroom Checker Relationship Specialty Start Date End Date Annmarie Ba MD PCP - General 10/03/20 06/22/24 documented as of this encounter
--- OUTSIDE RECORDS SUMMARY | 2024-10-20 05:01 | XMS_ITS | Encounter Summary ---
Author Organization [facility] Address [address] [address] Phone Care Team Providers Care Zoogler Name Role Phone Unavailable Primary Care Provider Unavailabl e Encounter Details Date Type Department Care Team (Late st Contact Info) Description 09/30/2024 Treatment [facility]. [address] [address] Jeffery Hicks MD [address] [address] Social History Tobacco Use Types [...] Dialysis Note - Jeffery Hicks MD - 09/30/2024 12:00 AM EST Patient: Gary Burns : 1995 Note Type: Dialysis Rounds-Basic Service Date: 09/30/2024 This patient was personally seen for a basic visit as part of routine monthly dialysis care for end stage renal disease. Attending Panel Edge Sealer: JEFFERY HICKS MD Dialysis Location: [facility] Schedule: Shift: 2 OVERVIEW Patient is stable. COMMENTS: Has anxiety in HD - on Xanax - will switch to Buspar HOME MEDICATIONS Medications reviewed. Current [facility] Outpatient Medications ALPRAZolam (Xanax) 0.5 MG tablet [...] day Taking 8 tablets Start Date: carvedilol (Coreg) 12.5 MG tablet Take 2 tablets (25 mg total) by mouth in the morning and 2 tablets (25 mg total) in the evening. Start Date: 10/02/2023 clonazePAM (KlonoPIN) 0.5 MG tablet Take 0.5 [...] status acceptable. ADEQUACY ASSESSMENT Kt/V, Natural Log 1.63 (08/26/24) 1.58 (07/29/24) UREA REDUCTION RATIO (%) 75 (08/26/24) 74 (07/29/24) BUN 59 (08/26/24) 61 (07/29/24) BUN Post Dialysis 15 (08/26/24) 16 (07/29/24) Creatinine 13.68 (08/26/24) 11.72 (07/29/24) Bicarbonate (CO2) 22 (08/26/24) 27 (07/29/24) Sodium 141 (08/26/24) 142 (07/29/24) ANEMIA ASSESSMENT Hgb 9.0 (09/14/24) 9.6 (09/09/24) 9.3 (08/26/24) Iron Saturation (TSat) 91 (08/26/24) 39 (07/29/24) Ferritin 604 (08/26/24) 371 (07/29/24) Iron 177 (08/26/24) 82 (07/29/24) TIBC 195 (08/26/24) 213 (07/29/24) MCV 94.0 (08/26/24) 99.4 (07/29/24) Platelets 90 (08/26/24) 111 (07/29/24) BMM ASSESSMENT Calcium, Adjusted Total 7.7 08/26/24 7.8 07/29/24 Calcium 7.6 08/26/24 7.8 07/29/24 Phosphorus, Serum 8.9 08/26/24 8.4 08/12/24 12.9 07/29/24 Ca*PO4 67.6 08/26/24 100.6 07/29/24 PTH, Intact 1,205 08/26/24 1,288 08/12/24 Magnesium 1.9 08/26/24 2.0 07/29/24 Alkaline Phosphatase 135 08/26/24 120 07/29/24 NUTRITION ASSESSMENT Albumin 3.9 08/26/24 4.1 07/29/24 Potassium 5.5 08/26/24 5.6 07/29/24 ADDITIONAL LABS White Blood Cells 6.8 (08/26/24) 4.9 (07/29/24) Signed by: JEFFERY HICKS MD on 09/30/2024 at 02:22:06 PM Transcribed by: JEFFERY HICKS MD on 09/30/2024 at 02:22:06 PM documented in this encounter Plan of Treatment Not on file documented as of this encounter Visit Diagnoses Not on filedocumented in this encounter
--- OUTSIDE RECORDS SUMMARY | 2024-10-20 05:01 | XMS_ITS | Encounter Summary ---
Author Organization [facility] Address [address] [address] Phone Care Team Providers Care Plate Slitter And Inspector Name Role Phone Unavailable Primary Care Provider Unavailabl e Encounter Details Date Type Department Care Team (Late st Contact Info) Description 10/13/2024 Treatment [facility]. [address] [address] Jeffery Hicks MD [address] [address] Social History Tobacco Use Types [...] Dialysis Note - Jeffery Hicks MD - 10/13/2024 12:00 AM EST Patient: Gary Burns : 1995 Note Type: Dialysis Rounds-Basic Telehealth Service Date: 10/13/2024 Telehealth encounter using audiovisual technology, performed according to state requirements. Appropriate patient consent obtained. This patient was personally seen for a basic visit as part of routine monthly dialysis care for end stage renal disease. Attending Esl Teacher: JEFFERY HICKS MD Dialysis Location: [facility] Schedule: Shift: 2 OVERVIEW Patient is stable. COMMENTS: Has anxiety in HD - on Xanax - will switch to Buspar HOME MEDICATIONS Medications reviewed. Current [facility] Outpatient Medications ALPRAZolam (Xanax) 0.5 MG [...] 141 (08/26/24) 142 (07/29/24) ANEMIA ASSESSMENT Hgb 9.6 (09/30/24) 9.0 (09/14/24) 9.6 (09/09/24) Iron Saturation (TSat) 58 (09/30/24) 91 (08/26/24) [...] (09/30/24) Signed by: JEFFERY HICKS MD on 10/14/2024 at 02:21:12 PM documented in this encounter Plan of Treatment Not on file documented as of this encounter Visit Diagnoses Not on filedocumented in this encounter
--- OUTSIDE RECORDS SUMMARY | 2024-10-20 05:01 | XMS_ITS | Encounter Summary ---
Author Organization [facility] Address [address] [address] Phone Care Team Providers Care Fishing Vessel Operator Name Role Phone Unavailable Primary Care Provider Unavailabl e Encounter Details Date Type Department Care Team (Late st Contact Info) Description 09/25/2024 Treatment [facility]. [address] [phone] Jeffery Hicks MD [address] [address] Social History Tobacco Use Types [...] Dialysis Note - Jeffery Hicks MD - 09/25/2024 12:00 AM EST Patient: Gary Burns : 1995 Note Type: Dialysis Rounds-Comp Service Date: 09/25/2024 This patient was personally seen for a complete visit as part of routine monthly dialysis care for end stage renal disease. Attending Keel Press Operator: JEFFERY HICKS MD Dialysis Location: [facility] Schedule: Shift: 2 OVERVIEW Patient is stable. COMMENTS: Has anxiety in HD - on Xanax - will switch to Buspar HOME MEDICATIONS Medications reviewed. Current [facility] Outpatient Medications ALPRAZolam (Xanax) 0.5 MG [...] blood pressure. Fluid status acceptable. ADEQUACY ASSESSMENT Target met. Prescription compliance acceptable. Kt/V, Natural Log 1.63 (08/26/24) 1.58 (07/29/24) UREA REDUCTION RATIO (%) 75 (08/26/24) 74 (07/29/24) BUN 59 (08/26/24) 61 (07/29/24) BUN Post Dialysis 15 (08/26/24) 16 (07/29/24) Creatinine 13.68 (08/26/24) 11.72 (07/29/24) Bicarbonate (CO2) 22 (08/26/24) 27 (07/29/24) Sodium 141 (08/26/24) 142 (07/29/24) ACCESS ASSESSMENT Vascular access examined. Current access is permanent and functioning well. ANEMIA ASSESSMENT Anemia targets met. Continue current WILFRED dose. Iron adjusted per protocol. Hgb 9.0 (09/14/24) 9.6 (09/09/24) 9.3 (08/26/24) Iron Saturation (TSat) 91 (08/26/24) 39 (07/29/24) Ferritin 604 (08/26/24) 371 (07/29/24) Iron 177 (08/26/24) 82 (07/29/24) TIBC 195 (08/26/24) 213 (07/29/24) MCV 94.0 (08/26/24) 99.4 (07/29/24) Platelets 90 (08/26/24) 111 (07/29/24) BMM ASSESSMENT PTH within target. Phosphorus controlled. Phosphorus binders adjusted. Calcium controlled. Bone and mineral metabolism parameters reviewed. Calcium, Adjusted Total 7.7 08/26/24 7.8 07/29/24 Calcium 7.6 08/26/24 7.8 07/29/24 Phosphorus, Serum 8.9 08/26/24 8.4 08/12/24 12.9 07/29/24 Ca*PO4 67.6 08/26/24 100.6 07/29/24 PTH, Intact 1,205 08/26/24 1,288 08/12/24 Magnesium 1.9 08/26/24 2.0 07/29/24 Alkaline Phosphatase 135 08/26/24 120 07/29/24 NUTRITION ASSESSMENT Albumin not at goal. Potassium controlled. Albumin 3.9 08/26/24 4.1 07/29/24 Potassium 5.5 08/26/24 5.6 07/29/24 PHYSICAL EXAM Exam performed. Vital Signs Reviewed. Lungs - Clear. CV - Blood pressure noted. No edema. EXT - No ulcers. ADDITIONAL LABS White Blood Cells 6.8 (08/26/24) 4.9 (07/29/24) Signed by: JEFFERY HICKS MD on 09/25/2024 at 09:11:55 PM Transcribed by: JEFFERY HICKS MD on 09/25/2024 at 09:11:55 PM documented in this encounter Plan of Treatment Not on file documented as of this encounter Visit Diagnoses Not on filedocumented in this encounter
--- OUTSIDE RECORDS SUMMARY | 2024-10-20 05:01 | XMS_ITS | Encounter Summary ---
Author Organization [facility] Address [address] [address] Phone Care Team Providers Care Mortgage Loan Counselor Name Role Phone Unavailable Primary Care Provider Unavailabl e Encounter Details Date Type Department Care Team (Late st Contact Info) Description 09/22/2024 Treatment [facility] [address] [address] Jeffery Hicks MD [address] [address] Social History Tobacco Use Types [...] Dialysis Note - Jeffery Hicks MD - 09/22/2024 12:00 AM EST Patient: Gary Burns : 1995 Note Type: Dialysis Rounds-Basic Telehealth Service Date: 09/22/2024 Telehealth encounter using audiovisual technology, performed according to state requirements. Appropriate patient consent obtained. This patient was personally seen for a basic visit as part of routine monthly dialysis care for end stage renal disease. Attending Post Graduate Intern: JEFFERY HICKS MD Dialysis Location: [facility] Schedule: Shift: 2 OVERVIEW Patient is stable. COMMENTS: Has anxiety in HD - on Xanax HOME MEDICATIONS Medications reviewed. Current [facility] Outpatient Medications ALPRAZolam (Xanax) 0.5 MG [...] (one) time each day Start Date: 08/26/2024 calcitriol (ROCALTROL) capsule Take 0.5 mcg by [...] (07/29/24) Signed by: JEFFERY HICKS MD on 09/23/2024 at 06:48:16 PM Transcribed by: JEFFERY HICKS MD on 09/23/2024 at 06:48:16 PM documented in this encounter Plan of Treatment Not on file documented as of this encounter Visit Diagnoses Not on filedocumented in this encounter
[2024-10-20 05:12] LABS: Alanine Aminotransferase < 6 U/L (0-40); Albumin Level 3.9 g/dL (3.5-5.0); Anion Gap 24 (12-20); Aspartate Amino Transferase 14 U/L (5-37); Bilirubin Total 0.8 mg/dL (0.0-1.0); Blood Urea Nitrogen 52 mg/dL (9-16); Carbon Dioxide 22 mmol/L (22-29); Chloride 98 mmol/L (96-108); Creatinine Clr Calc Pharmacy 9.7; Estimated Glomerular Filt Rate 4; Glucose Random 94 mg/dL (60-115); Potassium 7.5 mmol/L (3.3-5.1); Sodium 136 mmol/L (135-145); Total Protein 6.6 g/dL (6.5-8.0)
--- NOTE | 2024-10-20 05:17 | ECG_ITS ---
Test Reason : HYPERKALEMIA Blood Pressure : */* mmHG Vent. Rate : 73 BPM Atrial Rate : 73 BPM P-R Int : 184 ms QRS Dur : 90 ms QT Int : 416 ms P-R-T Axes : 51 16 56 degrees QTcB Int : 458 ms Normal sinus rhythm Normal ECG When compared with ECG of 13-Jul-2024 19:29, T wave amplitude has decreased in Inferior leads Referred By: Birgit Arambula Electronically Signed By: CHASE FERREIRA
[2024-10-20 05:18] LABS: Alkaline Phosphatase 152 U/L (39-117)
--- NOTE | 2024-10-20 05:29 | ED_ITS ---
HPI - Nausea/Vomiting/Diarrhea General Chief complaint: Nausea/Vomiting/Diarrhea Stated complaint: n/v x2 days & headache, missed dialysis today Time Seen by Provider: 10/20/24 05:16 Source: patient and EMS Mode of arrival: EMS Limitations: no limitations History of Present Illness ED Provider: DR. Arambula HPI Narrative: 29-year-old male ESRD on HD (M-W-F) been having nausea, vomiting, diarrhea for 2- 3 days, patient missed his dialysis yesterday, patient is also complaining of bilateral hand and feet numbness and tingling which usually happen when his potassium is high, patient feels no nausea, or vomiting now, abdominal pain is much better. No CP, no SOB, no fever, no chills. Related Data Home Medications ?Medication ?Instructions ?Recorded ?Confirmed atorvastatin 20 mg tablet 20 mg PO DAILY 03/13/23 08/04/24 carvedilol 25 mg tablet 25 mg PO BID 03/13/23 08/04/24 clonidine 0.3 mg/24 hr weekly 1 patch topical FR@0900 03/13/23 08/04/24 transdermal patch gabapentin 100 mg capsule 200 mg PO BID 03/13/23 08/04/24 hydrocortisone 0.5 % topical cream 1 appl topical DAILY PRN Rash 03/13/23 08/04/24 ketoconazole 2 % topical cream 1 appl topical DAILY PRN Rash 03/13/23 08/04/24 lactulose 10 gram/15 mL oral 15 ml PO DAILY PRN Constipation 03/13/23 08/04/24 solution nifedipine 60 mg tablet,extended 60 mg PO DAILY 03/13/23 08/04/24 release ondansetron HCl 4 mg tablet 4 mg PO Q8H PRN Nausea 03/13/23 08/04/24 polyethylene glycol 3350 17 17 g PO DAILY PRN Constipation 03/13/23 08/04/24 gram/dose oral powder sennosides 8.6 mg-docusate sodium 2 tab PO BID 03/13/23 08/04/24 50 mg tablet (Senna Plus) sertraline 50 mg tablet 50 mg PO DAILY 03/13/23 08/04/24 sevelamer carbonate 800 mg tablet 2,400 mg PO TIDWMEAL 03/13/23 08/04/24 vitamin B complex and vitamin C 1 cap PO BEDTIME 04/19/23 08/04/24 no.20-folic acid 1 mg capsule (Renal Caps) levetiracetam 500 mg tablet 500 mg PO MOWEFR@1645 06/14/23 08/04/24 docusate sodium 100 mg capsule 100 - 200 mg PO DAILY PRN 02/24/24 08/04/24 Constipation lanthanum 1,000 mg chewable tablet 1,000 mg PO TID 02/24/24 08/04/24 levetiracetam 500 mg tablet 500 mg PO BID 02/24/24 08/04/24 losartan 100 mg tablet 100 mg PO DAILY 02/24/24 08/04/24 nitroglycerin 0.4 mg sublingual 0.4 mg sublingual Q5M PRN Chest 02/24/24 08/04/24 tablet Pain alprazolam 0.5 mg tablet 0.5 mg PO Q OTHER DAY PRN anxiety 08/04/24 08/04/24 Previous Rx's ?Medication ?Instructions ?Recorded naloxone 4 mg/actuation nasal spray 4 mg intranasal Q3M PRN opioid 07/01/24 overdose #2 ea Allergies Allergy/AdvReac Type Severity Reaction Status Date / Time ceftriaxone AdvReac Nausea and Verified 10/20/24 03:37 Vomiting lorazepam [From Ativan] AdvReac Shakiness Verified 10/20/24 03:37 metoclopramide [From Reglan] AdvReac Nausea Verified 10/20/24 03:37 Review of Systems 2 Review of Systems: All other systems are reviewed and are negative Constitutional: Reports as per HPI and Reports no additional constitutional complaints Eyes: Reports as per HPI and Reports no additional eye complaints Reports system reviewed and no additional complaints, except as documented Cardiovascular: Reports as per HPI and Reports no additional cardiovascular complaints Respiratory: Reports as per HPI and Reports no additional respiratory complaints Gastrointestinal: Reports as per HPI and Reports no additional gastrointestinal complaints Genitourinary: Reports no additional female genitourinary complaints Musculoskeletal: Reports no additional musculoskeletal complaints Skin/Breast: Reports system reviewed and no additional complaints, except as docu Psychiatric: Reports no additional psychiatric complaints Endocrine: Reports no additional endocrine complaints Hematologic/Lymphatic: Reports no additional hematologic/lymphatic complaints Allergic/Immunologic: Reports no additional allergic/immunologic complaints Reports system reviewed and no additional complaints, except as documented and Reports Abnormal speech present [facility] Past Medical History Medical History Drug abuse Normocytic anemia CKD (chronic kidney disease) Syncope Anemia HTN (hypertension) Seizure disorder ESRD on dialysis End stage chronic kidney disease Bilateral lower extremity pain Back pain Family History Family History Sister Substance use disorder Social History Social History Household Members: Family Household Members Other:: mom, step dad, sister and nephew Housing: House Do you presently have visiting nurse or other home services: No Alcohol intake: never Comment: Pt refusing bed alarm Patient Tobacco Use Status: Never used Tobacco Smoked in Last 30 Days: Yes e-Cigarette/Vaping Use: Never Used Use of substances other than those prescribed or required for medical reasons: Yes Substance Use Type: Marijuana Advance Directives: Yes Advance Directives on File: Yes Advance Directives Date on File: 12/11/23 service: No Cognitive needs: No Hearing needs: No Vision needs: No Physical Exam 2 Vital Signs: Vital Signs: Last Vital Signs Temp 97.6 F 10/20/24 03:35 Pulse 72 10/20/24 03:35 Resp 20 10/20/24 03:35 BP 195/114 H 10/20/24 03:35 Pulse Ox 99 10/20/24 03:35 O2 Del Method Room Air 10/20/24 03:35 BMI result Body Mass Index 34.0 Vital signs have been reviewed and appear to be correct. Blood pressure elevated. Heart rate normal. Respiratory rate normal. Temperature normal. Oxygen saturation normal. Appearance: Alert. Oriented X3. No acute distress. Head: Normal external exam. Normocephalic. Atraumatic. No Gunter signs noted. No raccoon eyes noted Eyes: PERRLA. EOMI. Conjunctiva and sclera normal. Eyelids normal. ENT: TM's Normal. Pharynx normal. Uvula midline. Moist mucous membranes. No trismus noted. No drooling noted. No muffled voice noted. Neck: Normal inspection. Neck supple. FROM. No adenopathy. Thyroid Normal. No meningeal signs. No neck mass noted. CVS: Normal heart rate and rhythm. Heart sound normal. No murmurs noted. Pulses normal throughout. Respiratory: No respiratory distress. Painless inspiration. Breath sounds normal. No wheezes/rales/rhonchi noted. Chest nontender. No accessory muscle usage noted or decreased air movement noted. Abdomen: Soft and nontender. Bowel sounds normal in all 4 quadrants. No distention noted. No organomegaly noted. No visible injury noted. Back: No CVA tenderness. Full range of motion noted. Skin: Skin warm and dry. Normal skin color. Normal skin turgor. No rashes/lesions/lacerations noted. Extremities: No lower extremity edema. Extremities exhibit normal range of motion. Extremities nontender. Neuro: Oriented X 3. Cranial nerve exam: II-XII are grossly intact No motor deficit. No sensory deficit. Reflexes normal. Course Reevaluation(s) Reevaluation #1: ESRD on HD missed his last dialysis yesterday came in with hyperkalemia with no EKG changes, patient was given Lokelma, insulin/D50, and calcium gluconate. Case discussed with from nephrology service who will arrange for dialysis this morning. Time: 05:47 Medications Administered Discontinued Medications Generic Name Dose Route Start Last Admin Trade Name Freq PRN Reason Stop Dose Admin Ondansetron HCl 4 mg 10/20/24 03:57 10/20/24 04:43 Ondansetron Hcl 4 Mg/2 Ml Vial IVPUSH 10/20/24 03:58 4 mg ONCE ONE Administration Medical Decision Making Differential Diagnosis Differential Diagnoses: The differential diagnosis associated with the presentation includes (Hyperkalemia, EKG changes secondary to hyperkalemia, electrolyte derangement, severe anemia.) Admission/Observation Consideration of admission/observation: Escalation of care including admission/observation considered Lab Data MDM Lab Attestation statement: I reviewed the patient's lab results. 10/20/24 04:37 10/20/24 04:37 Labs: Lab Results 10/20/24 Range/Units 04:37 WBC 7.0 (4.8-10.8) X10*3/uL RBC 2.77 L D (4.60-5.80) X10*6/uL Hgb 8.9 L D (14.0-18.0) g/dl Hct 24.7 L D (42.0-52.0) % MCV 89.2 (80.0-98.0) fL MCH 32.1 (27.0-33.0) pg MCHC 36.0 (31.0-36.0) g/dl RDW 12.4 (11.0-16.0) % Plt Count 109 L D (160-400) X10*3/uL MPV 10.1 (9.4-12.4) fL Immature Gran % (Auto) 0.3 (0.0-0.4) % Neut % (Auto) 78.2 H (45-73) % Lymph % (Auto) 11.5 L (20-40) % Sandoval % (Auto) 7.2 (2-11) % Eos % (Auto) 2.4 (0-4) % Baso % (Auto) 0.4 (0-2) % Lymph # (Auto) 0.8 L (1.2-4.9) X10*3/uL Sandoval # (Auto) 0.5 (0.1-1.2) X10*3/uL Eos # (Auto) 0.2 (0.0-0.4) X10*3/uL Baso # (Auto) 0.0 (0.0-0.2) X10*3/uL Abs Immat Gran (auto) 0.02 (0.00-0.03) X10*3/uL Absolute Neuts (auto) 5.4 (2.0-8.3) x10*3/uL Absolute Nucleated RBC 0.000 (0.0-0.012) X10*3/uL Nucleated RBC % (auto) 0.0 (0.0-0.2) /100WBC Sodium 136 (135-145) mmol/L Potassium 7.5 H* D (3.3-5.1) mmol/L Chloride 98 (96-108) mmol/L Carbon Dioxide 22 (22-29) mmol/L Anion Gap 24 H (12-20) BUN 52 H (9-16) mg/dL Creatinine 14.47 H* (0.5-1.4) mg/dL Estim Creat Clear Calc 9.7 Estimated GFR 4 Random Glucose 94 (60-115) mg/dL Calcium 8.0 L D (8.4-10.2) mg/dL Total Bilirubin 0.8 (0.0-1.0) mg/dL AST 14 (5-37) U/L ALT < 6 (0-40) U/L Alkaline Phosphatase 152 H (39-117) U/L Total Protein 6.6 (6.5-8.0) g/dL Albumin 3.9 (3.5-5.0) g/dL Critical Care Time Critical Care Time Critical Care Time: Yes Total Critical Care Time: 60 Attestation: The patient was critically ill with a high probability of imminent or life- threatening deterioration. I spent greater than 30 minutes of discontinuous time evaluating the patient, delivering critical care at the bedside, discussing evaluating data with consultants. Critical care time does not include time spent performing separately billable procedures or teaching. Time spent performing critical care was 60 minutes. Discharge Plan Discharge Clinical Impression: Acute hyperkalemia, ESRD needing dialysis Patient Disposition: Admitted As Inpatient Print Language: [place]
[2024-10-20] MEDS: Dextrose 50 % 25 GM/50 ML SYRINGE IVPUSH (05:43)
[2024-10-20] MEDS: Sodium Zirconium Cyclosilicate 10 GM POWD.PACK PO (05:46)
[2024-10-20] MEDS: Insulin Regular, Human 100 UNIT/ML 10 ML VIAL IVPUSH (05:49)
[2024-10-20] MEDS: Calcium Gluconate/NaCl,Iso-Osm 2 GM/100 ML PLAST..BAG IV (05:52)
--- NOTE | 2024-10-20 06:06 | PM.IMHP ---
History of Present Illness Date of Service: 10/20/24 Chief Complaint: n/v 29M PMH 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, htn, epilepsy, mood disorder, hld presented with n/v. patient has been feeling unwell for about 2 days. Has no sick contacts. Complaining of nausea vomiting and loose stools. Denies abdominal pain or fevers. Unable to tolerate p.o.. Patient missed hemodialysis on 10/19/2024. In ED, lab significant for a potassium of 7.5 without EKG changes. Review of Systems Review of Systems: Yes all other systems are reviewed and are negative [facility] Medical History Drug abuse Normocytic anemia CKD (chronic kidney disease) Syncope Anemia HTN (hypertension) Seizure disorder ESRD on dialysis End stage chronic kidney disease Bilateral lower extremity pain Back pain Family History Sister Substance use disorder Social History Household Members: Family Household Members Other:: mom, step dad, sister and nephew Housing: House Do you presently have visiting nurse or other home services: No Alcohol intake: never Comment: Pt refusing bed alarm Patient Tobacco Use Status: Never used Tobacco Smoked in Last 30 Days: Yes e-Cigarette/Vaping Use: Never Used Use of substances other than those prescribed or required for medical reasons: Yes Substance Use Type: Marijuana Advance Directives: Yes Advance Directives on File: Yes Advance Directives Date on File: 12/11/23 service: No Cognitive needs: No Hearing needs: No Vision needs: No Meds Allergies Allergy/AdvReac Type Severity Reaction Status Date / Time ceftriaxone AdvReac Nausea and Verified 10/20/24 03:37 Vomiting lorazepam [From Ativan] AdvReac Shakiness Verified 10/20/24 03:37 metoclopramide [From Reglan] AdvReac Nausea Verified 10/20/24 03:37 Active Medications: Current Medications Acetaminophen (Acetaminophen 325 Mg Tablet) 650 mg PO Q6H PRN PRN Reason: Pain, Mild 1-3,fever,headache Calcium Carbonate (Calcium Carbonate 750 Mg Tab.Chew) 750 mg PO Q4H PRN PRN Reason: Heartburn Dextrose (Dextrose 50 % 25 Gm/50 Ml Syringe) 25 gm IVPUSH Q15M PRN PRN Reason: HYPOGLYCEMIA STANDING PROTOCOL Last Admin: 10/20/24 05:43 Dose: 25 gm Heparin Sodium (Porcine) (Heparin Sodium,Porcine 5,000 Unit/Ml Vial) 5,000 unit SUBCUT Q8H [facility] Calcium Gluconate (Calcium Gluconate) 2 gm in 100 mls @ 50 mls/hr IV ONCE ONE Stop: 10/20/24 07:25 Last Admin: 10/20/24 05:52 Dose: 50 mls/hr Magnesium Hydroxide (Milk Of Magnesia 30 Ml Oral.Susp) 30 ml PO DAILY PRN PRN Reason: Constipation Melatonin (Melatonin 3 Mg Tablet) 6 mg PO BEDTIME PRN PRN Reason: Insomnia Sodium Chloride (0.9 % Sodium Chloride Flush 3 Ml Syringe) 3 ml IVFLUSH QSHIFT [facility] Home Medications ?Medication ?Instructions ?Recorded ?Confirmed ?Last Taken ?Type atorvastatin 20 mg tablet 20 mg PO DAILY 03/13/23 08/04/24 12/09/23 History carvedilol 25 mg tablet 25 mg PO BID 03/13/23 08/04/24 12/09/23 History clonidine 0.3 mg/24 hr weekly 1 patch topical FR@0900 03/13/23 08/04/24 11/30/23 History transdermal patch gabapentin 100 mg capsule 200 mg PO BID 03/13/23 08/04/24 12/09/23 History hydrocortisone 0.5 % topical cream 1 appl topical DAILY PRN Rash 03/13/23 08/04/24 Unknown History ketoconazole 2 % topical cream 1 appl topical DAILY PRN Rash 03/13/23 08/04/24 Unknown History lactulose 10 gram/15 mL oral 15 ml PO DAILY PRN Constipation 03/13/23 08/04/24 Unknown History solution nifedipine 60 mg tablet,extended 60 mg PO DAILY 03/13/23 08/04/24 12/09/23 History release ondansetron HCl 4 mg tablet 4 mg PO Q8H PRN Nausea 03/13/23 08/04/24 Unknown History polyethylene glycol 3350 17 17 g PO DAILY PRN Constipation 03/13/23 08/04/24 Unknown History gram/dose oral powder sennosides 8.6 mg-docusate sodium 2 tab PO BID 03/13/23 08/04/24 12/09/23 History 50 mg tablet (Senna Plus) sertraline 50 mg tablet 50 mg PO DAILY 03/13/23 08/04/24 12/09/23 History sevelamer carbonate 800 mg tablet 2,400 mg PO TIDWMEAL 03/13/23 08/04/24 12/09/23 History vitamin B complex and vitamin C 1 cap PO BEDTIME 04/19/23 08/04/24 06/14/23 History no.20-folic acid 1 mg capsule (Renal Caps) levetiracetam 500 mg tablet 500 mg PO MOWEFR@1645 06/14/23 08/04/24 06/12/23 History docusate sodium 100 mg capsule 100 - 200 mg PO DAILY PRN 02/24/24 08/04/24 Unknown History Constipation lanthanum 1,000 mg chewable tablet 1,000 mg PO TID 02/24/24 08/04/24 Unknown History levetiracetam 500 mg tablet 500 mg PO BID 02/24/24 08/04/24 Unknown History losartan 100 mg tablet 100 mg PO DAILY 02/24/24 08/04/24 Unknown History nitroglycerin 0.4 mg sublingual 0.4 mg sublingual Q5M PRN Chest 02/24/24 08/04/24 Unknown History tablet Pain alprazolam 0.5 mg tablet 0.5 mg PO Q OTHER DAY PRN anxiety 08/04/24 08/04/24 Unknown History Physical Exam Vital Signs and Narrative: Vital Signs: Last Vital Signs Temp 97.6 F 10/20/24 03:35 Pulse 72 10/20/24 03:35 Resp 20 10/20/24 03:35 BP 195/114 H 10/20/24 03:35 Pulse Ox 99 10/20/24 03:35 O2 Del Method Room Air 10/20/24 03:35 BMI result Body Mass Index 34.0 General: AO X 3, no acute distress Resp: CTA bilateral, no accessory muscles used CVS: S1,S2,RRR GI: soft, non tender, non distended Neuro: motor grossly intact, alert Psych: appropriate affect, appropriate insight Results Labs 10/20/24 04:37 10/20/24 04:37 Labs: Laboratory Results - last 24 hr 10/20/24 04:37 MCV 89.2 MCH 32.1 MCHC 36.0 RDW 12.4 Plt Count 109 L D MPV 10.1 Immature Gran % (Auto) 0.3 Neut % (Auto) 78.2 H Lymph % (Auto) 11.5 L [place] % (Auto) 7.2 Eos % (Auto) 2.4 Baso % (Auto) 0.4 Lymph # (Auto) 0.8 L [place] # (Auto) 0.5 Eos # (Auto) 0.2 Baso # (Auto) 0.0 Abs Immat Gran (auto) 0.02 Absolute Neuts (auto) 5.4 Absolute Nucleated RBC 0.000 Nucleated RBC % (auto) 0.0 Anion Gap 24 H Estim Creat Clear Calc 9.7 Estimated GFR 4 Random Glucose 94 Calcium 8.0 L D Total Bilirubin 0.8 AST 14 ALT < 6 Alkaline Phosphatase 152 H Total Protein 6.6 Albumin 3.9 Assessment and Plan (1) Acute hyperkalemia: Status: Acute Plan 29M PMH 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, htn, epilepsy, mood disorder, hld presented with n/v and diarrhea and found to have severe hyperkalemia End-stage renal disease complicated by acute hyperkalemia due to missed hemodialysis Hold losartan Status post insulin, calcium gluconate, Lokelma Nephro consult - rtane Plan for dialysis today Monitor on telemetry Follow up repeat BMP Gastroenteritis Check stool studies, symptomatic management with antiemetics Hypertension Holding losartan Continue carvedilol, clonidine patch Mood disorder Continue Xanax Epilepsy Continue Keppra Hyperlipidemia Continue statin DVT prophylaxis with heparin subQ Full code Given degree of hyperkalemia need for dialysis likely require at least 2 midnights inpatient Quality Stroke Does the patient have a stroke diagnosis?: No VTE Prior VTE?: No VTE Risk Level:: Medical - moderate - high VTE Device Contraindication: Treatment Not Indicated VTE Drug Contraindication: N/A - Med Ordered
[2024-10-20 06:18] VITALS: BP 182/123; PULSE 72; RESP 16; TEMP 36.8; O2SAT 95
[2024-10-20 06:20] LABS: Glucose, Whole Blood 138 mg/dL (60-115)
--- NOTE | 2024-10-20 08:23 | PC.NURSE ---
dialysis has a spot for pt. per RN in dialysis hold BP meds and keppra until after dialysis
--- NOTE | 2024-10-20 08:54 | PM.PNNEP ---
Subjective Subjective Date of Service: 10/20/24 Principal diagnosis: Pt seen on HD . Feels OK Interval history: No CP K is high Physical Exam Vital Signs: Vital Signs: Last Vital Signs Temp 98.2 F 10/20/24 06:18 Pulse 72 10/20/24 06:18 Resp 16 10/20/24 06:18 BP 182/123 H 10/20/24 06:18 Pulse Ox 95 10/20/24 06:18 O2 Del Method Room Air 10/20/24 06:18 BMI result Body Mass Index 34.0 Appearance: Alert. Oriented X3. No acute distress. Head: Normal external exam. Eyes: PERRLA. EOMI. Conjunctiva and sclera normal. Eyelids normal. ENT: TM's Normal. Pharynx normal. Uvula midline. Moist mucous membranes. No trismus noted. No drooling noted. No muffled voice noted. Neck: Normal inspection. Neck supple. FROM. No adenopathy. Thyroid Normal. No meningeal signs. No neck mass noted. CVS: Normal heart rate and rhythm. Heart sound normal. No murmurs noted. Pulses normal throughout. Respiratory: No respiratory distress. Painless inspiration. Breath sounds normal. No wheezes/rales/rhonchi noted. Chest nontender. No accessory muscle usage noted or decreased air movement noted. Abdomen: Soft and nontender. Bowel sounds normal in all 4 quadrants. No distention noted. No organomegaly noted. No visible injury noted. Back: No CVA tenderness. Full range of motion noted. Skin: Skin warm and dry. Normal skin color. Normal skin turgor. No rashes/lesions/lacerations noted. Extremities: No lower extremity edema. Extremities exhibit normal range of motion. Extremities nontender. Neuro: Oriented X 3. No motor deficit. No sensory deficit. Objective Data Labs 10/20/24 04:37 10/20/24 04:37 Labs: Laboratory Results - last 24 hr 10/20/24 10/20/24 04:37 06:15 WBC 7.0 RBC 2.77 L D Hgb 8.9 L D Hct 24.7 L D MCV 89.2 MCH 32.1 MCHC 36.0 RDW 12.4 Plt Count 109 L D MPV 10.1 Immature Gran % (Auto) 0.3 Neut % (Auto) 78.2 H Lymph % (Auto) 11.5 L [place] % (Auto) 7.2 Eos % (Auto) 2.4 Baso % (Auto) 0.4 Lymph # (Auto) 0.8 L [place] # (Auto) 0.5 Eos # (Auto) 0.2 Baso # (Auto) 0.0 Abs Immat Gran (auto) 0.02 Absolute Neuts (auto) 5.4 Absolute Nucleated RBC 0.000 Nucleated RBC % (auto) 0.0 Sodium 136 Potassium 7.5 H* D Chloride 98 Carbon Dioxide 22 Anion Gap 24 H BUN 52 H Creatinine 14.47 H* Estim Creat Clear Calc 9.7 Estimated GFR 4 POC Glucose 138 H Random Glucose 94 Calcium 8.0 L D Total Bilirubin 0.8 AST 14 ALT < 6 Alkaline Phosphatase 152 H Total Protein 6.6 Albumin 3.9 Procedures Date of Service Date of Service: 10/20/24 Assessment & Plan Assessment and plan (1) ESRD needing dialysis: Status: Acute (2) Acute hyperkalemia: Status: Acute (3) Anemia: Status: Acute (4) Seizure disorder: Status: Acute (5) ESRD on dialysis: Status: Inactive (6) Syncope: Status: Resolved (7) Back pain: Status: Inactive Plan 29-year-old male with a history of ADHD, hyperactivity, anemia, anxiety, depression, end-stage renal disease admitted with feeling unwell 1. ESRD: Missd HD yesterday- Usual HD MWF at [facility] . HD today and in [place] if inhouse 2. Hyperkalemia : No EKG changes . Medical Rx for high K- 1 K bath on HD followed by 2 K . Low K diet 3. HTN : uncontrolled- Should improve with HD. Continue home BP meds Will use AVF Low Na diet 1500 ml fluid restriction D/w pt about compliance with HD and diet Can restart Losartan later today after HD Time Spent With Patient Time: Total time managing care of this patient today ____ minutes. Progress Note: Quality Stroke Does the patient have a stroke diagnosis?: No
--- NOTE | 2024-10-20 09:29 | PHA.MEDREC ---
Addendum entered by Carmen Villegas RPh 10/20/24 09:56: reviewed by [facility]. Original Note: Pharmacy Consult ? Medication Reconciliation Pharmacy has completed the medication reconciliation. Spoke with patient and he confirmed his medications. He confirmed his Alprazolam 0.5mg tab and confirmed he takes it as needed on Mondays, Wednesdays and Fridays for dialysis. He stated he stopped taking the Bumetadine 2mg tab a few weeks ago due to not getting any relief while taking it. He was not sure if he was taking the Buspirone 5mg tab or not and then stated he was never able to pick that up from his pharmacy to start that; I called and spoke with Garth and they confirmed with me that the patient picked up that medication on 09/28 for 30 days. He confirmed the Clonidine patch once a week and confirmed he changed it this past Monday 10/16. He confirmed his Dr stopped The Nifedipine 60mg tab a few months ago but did not remember why at this time he stopped it. He confirmed he still has Sevelamer Carbonate 800mg tab at home and stated he takes them on occasion depending on how he feels after Dialysis. He states he is not taking the Velphoro 500mg anymore and claims he did not care for taking it or see any changes while on it. He confirmed he took his morning medications yesterday morning but did not take any for Dialysis.
--- NOTE | 2024-10-20 10:34 | MHC.CM.PN ---
IMM 10/20/24, Pt.lives with his family, PCP confirmed, Dr. Trejo, HCP on file and confirmed: Caitlin. He does not have home care services, for DME, uses a cane. He is able to arrange a ride home at [place]. DCP: home, self care, CM to follow for DC needs.
--- NOTE | 2024-10-20 11:19 | PM.EVENT ---
Event Note Date of Service: 10/20/24 Event Note: The patient was seen and evaluated this morning Feels better while in dialysis To reeval after dialysis, DC home and follow with Dialysis outpatient tomorrow Time Spent With Patient Time: Total time managing care of this patient today ____ minutes.
[2024-10-20 13:19] VITALS: BP 179/117; PULSE 84; RESP 18; TEMP 36.6; O2SAT 98
--- NOTE | 2024-10-20 13:22 | PC.NURSE ---
pt back from dialysis at 1320
[2024-10-20] MEDS: levETIRAcetam 500 MG TABLET PO (13:53)
[2024-10-20] MEDS: carvediloL 25 MG TABLET PO (13:53)
[2024-10-20] MEDS: Losartan Potassium 50 MG TABLET 100 MG PO (14:17)
[2024-10-20] MEDS: NIFEdipine ER 60 MG TAB.ER.24 PO (14:17)
--- NOTE | 2024-10-20 15:03 | P.DS_ITS ---
DS: Providers Provider Date of Service: 10/20/24 Date of admission: 10/20/24 05:52 Date of discharge: 10/20/24 Primary care physician: JAE Garcia Consults: 10/20/24 05:49 Consult to Nephrology Stat Consulting Provider: [facility] Reason for consultation: Hyperkalemia Has provider been notified: Yes 10/20/24 05:50 Consult to Nephrology Routine Consulting Provider: [facility] 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 patient has been feeling unwell for about 2 days. Has no sick contacts. Complaining of nausea vomiting and loose stools. Denies abdominal pain or fevers. Unable to tolerate p.o.. Patient missed hemodialysis on 10/19/2024. In ED, lab significant for a potassium of 7.5 without EKG changes. Hospital course The patient was admitted for urgent dialysis. received insulin, calcium gluconate, Lokelma in ED. tolerated dialysis well. Seen by Dr Hicks from nephrology who recommended fluid restriction and low sodium diet. advised the patient to follow for outpatient dialysis tomorrow as planned. REpeated blood work showed K of 3.1 and better controlled blood pressure. Repeated blood pressure reading after getting his home medications No more episodes of vomiting or diarrhea while inpatient. felt good and asked to be discharged home to follow with dialysis tomorrow. I discussed with dr Hicks who felt comfortable with him going home. Discharge plan Zofran as needed for nausea Continue home medications and monitor blood pressure readings Follow for dialysis tomorrow Follow with nephrology as outpatient Time Attestation Discharge Coordination Time (in mins): 38 Quality: Safe Use of Opioids Does Pt have an Active Cancer Diagnosis on the Problem List?: No Quality: Stroke Does the patient have a stroke diagnosis?: No Physical Exam Vital Signs: Vital Signs: Last Vital Signs Temp 97.8 F 10/20/24 13:19 Pulse 84 10/20/24 13:19 Resp 18 10/20/24 13:19 BP 179/117 H 10/20/24 13:19 Pulse Ox 98 10/20/24 13:19 O2 Del Method Room Air 10/20/24 13:19 BMI result Body Mass Index 34.0 Const: Other: Constitutional : interactive, not in distress Cardiovascular : no JVP, no lower extremity edema, dialysis cather right chest wall Respiratory : bilateral chest movement, not in resp distress Gastrointestinal: soft, lax, Non tender Skin : Warm, Dry Neurological : Alert & oriented , No focal deficit DS: Data Data Completed and Pending Completed studies during hospitalization [Text1]: Procedures Performance of Urinary Filtration, Intermittent, Less than 6 Hours Per Day (12/09/23) Transfusion of Nonautologous Red Blood Cells into Peripheral Vein, Percutaneous Approach (04/19/23) Labs on day of discharge: Laboratory Results - last 24 hr 10/20/24 10/20/24 04:37 06:15 WBC 7.0 RBC 2.77 L D Hgb 8.9 L D Hct 24.7 L D MCV 89.2 MCH 32.1 MCHC 36.0 RDW 12.4 Plt Count 109 L D MPV 10.1 Immature Gran % (Auto) 0.3 Neut % (Auto) 78.2 H Lymph % (Auto) 11.5 L [place] % (Auto) 7.2 Eos % (Auto) 2.4 Baso % (Auto) 0.4 Lymph # (Auto) 0.8 L [place] # (Auto) 0.5 Eos # (Auto) 0.2 Baso # (Auto) 0.0 Abs Immat Gran (auto) 0.02 Absolute Neuts (auto) 5.4 Absolute Nucleated RBC 0.000 Nucleated RBC % (auto) 0.0 Sodium 136 Potassium 7.5 H* D Chloride 98 Carbon Dioxide 22 Anion Gap 24 H BUN 52 H Creatinine 14.47 H* Estim Creat Clear Calc 9.7 Estimated GFR 4 POC Glucose 138 H Random Glucose 94 Calcium 8.0 L D Total Bilirubin 0.8 AST 14 ALT < 6 Alkaline Phosphatase 152 H Total Protein 6.6 Albumin 3.9 Discharge Plan Discharge Anticipated Discharge Date/Time: 10/20/24 14:51 Patient Disposition: Home, Self-Care Discharge Diagnosis: Hyperkalemia needing dialysis Referrals: Pillo Trejo, [employer]- [Primary Care Provider] - 1 Week Discharge Medications: New ondansetron 4 mg tablet,disintegrating 4 mg PO Q8H PRN (Reason: nausea and vomiting) Qty: 14 0RF Continued carvedilol 25 mg tablet 25 mg PO BID atorvastatin 20 mg tablet 20 mg PO DAILY ondansetron HCl 4 mg tablet 4 mg PO Q8H PRN (Reason: Nausea) sennosides-docusate sodium [Senna Plus] 8.6-50 mg tablet 2 tab PO BID clonidine 0.3 mg/24 hr patch weekly 1 patch topical FR@0900 gabapentin 100 mg capsule 200 mg PO BID sertraline 50 mg tablet 50 mg PO DAILY sevelamer carbonate 800 mg tablet 2,400 mg PO TIDWMEAL hydrocortisone 0.5 % Cream 1 appl TOPICAL DAILY PRN (Reason: Rash) Rx Instructions: face ketoconazole 2 % Cream 1 appl TOPICAL DAILY PRN (Reason: Rash) Rx Instructions: face Renal Caps 1 mg capsule 1 cap PO BEDTIME levetiracetam 500 mg tablet 500 mg PO MOWEFR@1645 Rx Instructions: AFTER DIAYLSIS levetiracetam 500 mg Tablet 500 mg PO BID nitroglycerin 0.4 mg Tablet, Sublingual 0.4 mg SUBLINGUAL Q5M PRN (Reason: Chest Pain) Rx Instructions: do not exceed 3 doses per episode losartan 100 mg tablet 100 mg PO DAILY buspirone 5 mg tablet 5 mg PO BID cholecalciferol (vitamin D3) [Vitamin D3] 50 mcg (2,000 unit) Tablet 50 mcg PO BEDTIME alprazolam 0.5 mg tablet 0.5 mg PO MOWEFR PRN (Reason: anxiety) Discharge Orders: Discharge Order (Routine); Ordered 10/20/24 Ordered By: Arsenio Thurston Diet: Low salt diet Activity on Discharge: As tolerated Stand Alone Forms: Patient Portal Discharge page Print Language: Greek Care Plan Goals: Zofran as needed for nausea Continue home medications and monitor blood pressure readings Follow for dialysis tomorrow Follow with nephrology as outpatient Health Concerns: ESRD on dialysis with hyperkalemia Plan of Treatment: Dialysis Assessment: as above Discharge Date/Time: 10/20/24 16:30
[2024-10-20 15:13] VITALS: BP 157/101; PULSE 84; RESP 18; TEMP 36.6; O2SAT 98
[2024-10-20] MEDS: Heparin Sodium,Porcine Flush 50 UNITS/5 ML SYRINGE IVFLUSH (15:13)
--- NOTE | 2024-10-20 15:16 | PC.NURSE ---
port flushed with hep lock and removed.
[2024-10-20 15:50] LABS: Anion Gap 15 (12-20); Blood Urea Nitrogen 18 mg/dL (9-16); Calcium 8.6 mg/dL (8.4-10.2); Carbon Dioxide 26 mmol/L (22-29); Chloride 99 mmol/L (96-108); Estimated Glomerular Filt Rate 9; Glucose Random 119 mg/dL (60-115); Potassium 3.5 mmol/L (3.3-5.1); Sodium 136 mmol/L (135-145)
[2024-10-20 16:24] VITALS: BP 157/101; PULSE 84; RESP 18; TEMP 36.6; O2SAT 98
--- NOTE | 2024-10-20 22:43 | CONS_ITS ---
DATE OF SERVICE: REASON FOR CONSULTATION: Consult requested by the medical team to evaluate and help in management of patient with end-stage renal disease who is presented with not feeling well, nausea and vomiting. HISTORY OF PRESENT ILLNESS: The patient is a 29-year-old male with end-stage renal disease on hemodialysis, hypertension, epilepsy, who usually gets dialyzed on Saturday, Saturday, Saturday at [facility], who presents to the hospital with above-mentioned complaint. He has been unwell for 2 days. There were no sick contacts. He did have loose stools. He did not have any abdominal pain or fevers. He was unable to tolerate p.o. fluids. Apparently, he missed dialysis on October 19. In the ER, lab work showed that his potassium level was elevated at 7.5 without any EKG changes. He was treated medically for hyperkalemia and admitted to the hospital on the telemetry unit. My colleague was contacted and she arranged for hemodialysis for the patient with a low-potassium diet bath. REVIEW OF SYSTEMS: As noted above. Other system review negative. PAST MEDICAL HISTORY: History of drug abuse, history of anemia, ESRD on hemodialysis, history of syncope, hypertension, long-standing seizure disorder, bilateral lower extremity pain. FAMILY HISTORY: The patient's sister has substance abuse disorder. PERSONAL AND SOCIAL HISTORY: The patient lives with his family. Does not drink alcohol and does not smoke. He has history of substance abuse and uses marijuana. ALLERGIES: PATIENT HAS ALLERGIES TO CEFTRIAXONE, LORAZEPAM, AND METOCLOPRAMIDE. MEDICATIONS: As an outpatient and inpatient were reviewed in detail. PHYSICAL EXAMINATION: GENERAL: Patient is resting in the bed. Awake, alert, oriented x3. VITAL SIGNS: Blood pressure was 182/123, pulse 72, afebrile. HEENT: Shows pupils are equal, round, and reactive bilaterally to light. NECK: No jugular venous distention is noted. Neck was supple. CARDIOVASCULAR SYSTEM: S1, S2 without rub or murmur. RESPIRATORY SYSTEM: Mildly decreased in bases. ABDOMEN: Obese, soft, nontender. No guarding noted. Bowel sounds normal. EXTREMITIES: Showed no edema. There is no peripheral cyanosis or clubbing. UPPER EXTREMITY: AV fistula with bruit and thrill was noted. LABORATORY DATA: Labs done recently. Sodium 136, potassium was 7.5, and non hemolyzed. Chloride 98, CO2 22, BUN 52, creatinine 14.47. Calcium is 8.0, albumin 3.9. WBCs 7.0, hemoglobin 8.9, hematocrit 24.7, platelets were 109. IMPRESSION: 1. Young male with end-stage renal disease, on hemodialysis. Admitted with missed dialysis weakness/uremia. 2. Hyperkalemia due to missed dialysis treatment and dietary noncompliance. 3. Hypertension is uncontrolled in the setting of missed dialysis treatment, possible noncompliance. 4. Anemia of chronic disease. 5. Likely gastroenteritis. RECOMMENDATION: At this juncture, we have arranged hemodialysis for the patient in the inpatient dialysis unit. We will try to remove fluid as tolerated. We used 1 potassium bath initially and then converted to 2 potassium baths for this patient given hyperkalemia. Usually gets dialyzed on Saturday, Saturday, Saturday and arrange hemodialysis for the patient again in a.m. He should be on strict 2 g sodium diet, 2 g potassium diet and a fluid restriction of 1500 mL. We will continue to monitor for erythropoietin needs for this patient. I counseled the patient regarding compliance with his dialysis treatment on diet. The patient can continue his present antihypertensive regimen and I will restart losartan after dialysis today. Thank you for allowing me to participate in medical management of the patient. MD PINKY Duque/BALA / [phone]
== END 2024-10-20 16:30 | disposition home or self-care (01) | DRG 640 ==
LOC: HO.ED 05:47 → HO.EDOVER 05:57 → HO.IMC 14:17 → HO.EDOVER 14:41
PROVIDERS: Admitting Provider Internal Medicine; Emergency Provider Emergency Medicine; PCP Nurse Practitioner Family; Visit Provider Student in an Organized Health Care Education/Training Program
DX: E87.5 Hyperkalemia (principal); N18.6 End stage renal disease; I12.0 Hypertensive chronic kidney disease with stage 5 chronic kidney disease or end stage renal disease; K52.9 Noninfective gastroenteritis and colitis, unspecified; G40.909 Epilepsy, unspecified, not intractable, without status epilepticus; D63.1 Anemia in chronic kidney disease; E78.5 Hyperlipidemia, unspecified; M32.14 Glomerular disease in systemic lupus erythematosus; Z99.2 Dependence on renal dialysis; Z91.158 Patient's noncompliance with renal dialysis for other reason; Z79.899 Other long term (current) drug therapy
CPT/HCPCS: 36415; 71045; 80048; 80053; 82947; 85025; 90999; 93005; 99285; J0613; J1642; J2405

== ENCOUNTER → 2024-10-20 05:17 | Outpatient (BNV) | payer OTHER, SELFPAY | PROVIDERS: Admitting Provider Internal Medicine; Emergency Provider Emergency Medicine; PCP Nurse Practitioner Family; Visit Provider Internal Medicine | DX: R11.2 Nausea with vomiting, unspecified (principal) | CPT/HCPCS: 93010 ==

== ENCOUNTER → 2024-10-20 05:17 | Outpatient (BNV) | payer OTHER, SELFPAY | PROVIDERS: Admitting Provider Internal Medicine; Emergency Provider Emergency Medicine; PCP Nurse Practitioner Family; Visit Provider Radiology Vascular & Interventional Radiology | DX: J84.9 Interstitial pulmonary disease, unspecified (principal) | CPT/HCPCS: 71045 ==

== ENCOUNTER → 2024-10-20 05:52 | Outpatient (BNV) | payer OTHER, SELFPAY | PROVIDERS: Admitting Provider Internal Medicine; Emergency Provider Emergency Medicine; PCP Nurse Practitioner Family; Visit Provider Internal Medicine | DX: N18.6 End stage renal disease (principal); Z99.2 Dependence on renal dialysis; E87.5 Hyperkalemia; R55 Syncope and collapse; M54.9 Dorsalgia, unspecified; R03.0 Elevated blood-pressure reading, without diagnosis of hypertension | CPT/HCPCS: 99235; 99499 ==

== ENCOUNTER 2025-02-26 15:36 | Inpatient (IN) | payer OTHER, SELFPAY ==
[2025-02-26] VITALS (10 sets, daily range): BP systolic 165–189; BP diastolic 98–118; PULSE 72–84; RESP 11–18; TEMP 36.5–36.7; O2SAT 94–100; BMI 31.9
--- NOTE | ~2025-02-26 | CT_ITS ---
CLINICAL HISTORY: fall ?head strike CT cervical spine without contrast Comparison: None Findings: The alignment of the cervical spine is normal. There is no fracture. There is moderate C3-4 degenerative disc disease. There is no significant central canal or neuroforaminal stenosis. There is a partially visualized right IJ central venous catheter. IMPRESSION: No evidence of cervical spine injury. This document has been electronically signed by: Indra Carpenter MD on 02/26/2025 22:57:30
--- NOTE | ~2025-02-26 | CT_ITS ---
CLINICAL HISTORY: headache, fall, weakness CT head without contrast Comparison: None Findings: There is no acute intracranial hemorrhage. Ventricles are of normal size and shape. No mass effect or midline shift is present. The vang-white matter differentiation appears normal. There are a few punctate calcifications in the right frontal lobe. The visualized portions of the orbits, paranasal sinuses, and mastoids are unremarkable. No fractures are identified. IMPRESSION: No acute intracranial abnormality. This document has been electronically signed by: Indra Carpenter MD on 02/26/2025 23:00:27
--- NOTE | ~2025-02-26 | XR_ITS ---
CLINICAL HISTORY: hypoxia Two views of the chest. COMPARISON: XR chest dated 10/20/24 at 05:46 EST FINDINGS: Right-sided chest port tip overlies the distal SVC. Normal heart size. No consolidation. No pleural effusion or pneumothorax. No fracture identified. IMPRESSION: 1. No consolidation. This document has been electronically signed by: Lester Wise MD on 02/26/2025 18:02:09
--- NOTE | 2025-02-26 15:48 | ECG_ITS ---
Test Reason : CHEST PAIN Blood Pressure : */* mmHG Vent. Rate : 78 BPM Atrial Rate : 78 BPM P-R Int : 184 ms QRS Dur : 88 ms QT Int : 414 ms P-R-T Axes : 26 15 81 degrees QTcB Int : 471 ms Normal sinus rhythm Nonspecific T wave abnormality Prolonged QT Abnormal ECG When compared with ECG of 20-Oct-2024 05:24, T wave inversion now evident in Lateral leads Referred By: Generic ED Physician Electronically Signed By: CHASE FERREIRA
--- NOTE | 2025-02-26 15:53 | ED.DIZZY ---
HPI - Dizziness General Chief Complaint: Chest Pain Stated Complaint: DIZZINESS,CP Time Seen by Provider: 02/26/25 15:43 Source: patient Mode of arrival: ambulatory Limitations: no limitations History of Present Illness ED Provider: Mayra Boykin PA-C HPI Narrative: 29-year-old male with medical history of ESRD on dialysis, anemia, HTN, seizure disorder, presents to the ED today due to dizziness. Patient states he has ?not been feeling well? for the last 2 days due to migraine and weakness, with nausea and vomiting. Last episode of vomiting was yesterday. States that he took Tylenol this morning for migraine without effect. States that today he tried to get out of bed and was able to do so felt dizzy, with blurry vision, and felt as if ?his legs gave out? when he fell to the floor. States his dizziness is more like lightheadedness does not feel as if he or the room is spinning, more so feels lightheaded when getting up from a sitting or lying position. Denies LOC, head strike. Patient states 30 minutes after episode of weakness he felt left-sided chest pain that is a constant dull pressure. Patient states he has been dealing with ?months of watery diarrhea?. Additionally patient states he has bilateral lower extremity muscle aches. Patient is on dialysis this with end-stage renal disease last dialysis was Saturday, was supposed to go for dialysis today but did not make the appointment due to not feeling well. Denies shortness of breath, visual changes, fever, chills, black or tarry stool, urinary symptoms, bilious vomit, hematemesis MD elicited complaint: dizziness Pertinent past history: other (ESRD on dialysis, dialyzed Saturday, missed today) Onset (ago): day(s) (2) Timing: awoke with symptoms Severity: moderate Description: lightheadedness Exacerbating factors: movement/ambulation (Sitting up from lying down) Relieving factors: remaining still Associated symptoms: vomiting, chest pain (Left-sided sternal) and other (Diarrhea) Related Data Home Medications ?Medication ?Instructions ?Recorded ?Confirmed atorvastatin 20 mg tablet 20 mg PO DAILY 03/13/23 03/01/25 clonidine 0.3 mg/24 hr weekly 1 patch topical FR@0900 03/13/23 03/01/25 transdermal patch gabapentin 100 mg capsule 200 mg PO BID 03/13/23 03/01/25 ketoconazole 2 % topical cream 1 appl topical DAILY PRN Rash 03/13/23 03/01/25 sennosides 8.6 mg-docusate sodium 2 tab PO BID PRN Constipation 03/13/23 03/01/25 50 mg tablet (Senna Plus) sertraline 50 mg tablet 50 mg PO DAILY 03/13/23 03/01/25 sevelamer carbonate 800 mg tablet 2,400 mg PO TIDWMEAL 03/13/23 03/01/25 levetiracetam 500 mg tablet 500 mg PO MOWEFR AFTER DIALYSIS ON 02/24/24 03/01/25 DIALYSIS DAYS losartan 100 mg tablet 100 mg PO BID 02/24/24 03/01/25 nitroglycerin 0.4 mg sublingual 0.4 mg sublingual Q5M PRN Chest 02/24/24 03/01/25 tablet Pain alprazolam 0.5 mg tablet,extended 0.5 mg PO BID PRN Anxiety 02/26/25 03/01/25 release 24 hr buspirone 15 mg tablet 15 mg PO BID 02/26/25 03/01/25 carvedilol 12.5 mg tablet 25 mg PO BID 02/26/25 03/01/25 hydrocortisone 2.5 % topical cream 1 appl topical DAILY PRN Rash 02/26/25 03/01/25 trazodone 50 mg tablet 50 mg PO BEDTIME PRN Sleep 02/26/25 03/01/25 vitamin B complex and vitamin C 1 cap PO BEDTIME 03/01/25 03/01/25 no.20-folic acid 1 mg capsule (Triphrocaps) Previous Rx's ?Medication ?Instructions ?Recorded ondansetron 4 mg disintegrating 4 mg PO Q8H PRN nausea and 10/20/24 tablet vomiting #14 tabs levetiracetam 250 mg tablet 750 mg (3 x 250 mg) PO BID #540 03/02/25 tabs metronidazole 500 mg tablet 500 mg PO Q8H 10 days #30 tabs 03/09/25 Allergies Allergy/AdvReac Type Severity Reaction Status Date / Time ceftriaxone AdvReac Nausea and Verified 02/28/25 20:02 Vomiting lorazepam [From Ativan] AdvReac Shakiness Verified 02/28/25 20:02 metoclopramide [From Reglan] AdvReac Nausea Verified 02/28/25 20:02 Review of Systems Review of Systems: CONST: Negative for fever, body aches and chills. HENT: Negative for neck pain/stiffness, congestion, sore throat, swelling. POS migraine EYES: Negative for discharge/pain or vision changes. RESP: Negative for cough/hemoptysis and shortness of breath. CV: Negative, difficulty breathing, palpitations. POS L sided chest pain/pressure ABD: Negative pain, nausea, vomiting. : Negative increase frequency, dysuria, blood in urine or stool. POS diarrhea MUSC: Negative for, edema. POS LE muscle aches SKIN: Negative rash, lesions/sores. NEURO: POS lightheadedness, dizziness, weakness PMFSH Past Medical History Attestation statement: The following information was validated with the patient. Source: old records reviewed and nursing notes reviewed Medical History Syncope ESRD needing dialysis Drug abuse Normocytic anemia CKD (chronic kidney disease) Anemia HTN (hypertension) Seizure disorder ESRD on dialysis End stage chronic kidney disease Bilateral lower extremity pain Back pain Family History Family History Sister Substance use disorder Social History Social History Household Members: Family Household Members Other:: mom, step dad, sister and nephew Housing: House Do you presently have visiting nurse or other home services: No Alcohol intake: never Comment: Pt refusing bed alarm Patient Tobacco Use Status: Former Tobacco user e-Cigarette/Vaping Use: Never Used Substance Use Type: Marijuana Advance Directives Date on File: 12/11/23 service: No Cognitive needs: No Hearing needs: No Vision needs: No Physical Exam Vital Signs: Vital Signs: Last Vital Signs Temp 99.0 F 02/27/25 15:51 Pulse 83 02/27/25 15:51 Resp 16 02/27/25 15:51 BP 148/110 H 02/27/25 15:51 Pulse Ox 97 02/27/25 15:51 O2 Del Method Room Air 02/27/25 15:51 O2 Flow Rate 2 02/26/25 19:38 BMI result Body Mass Index 31.9 GENERAL APPEARANCE: ?AxOx4, tired appearing, no acute distress. HEENT: ?NC, AT. MMM. EOMI, clear conjunctiva, oropharynx clear. Pupils appropriate size and reactive. NECK: ?Supple without lymphadenopathy.? No stiffness or restricted ROM. HEART:? Normal rate and regular rhythm, normal S1/S1, no m/r/g LUNGS:? CTAB, moving air well. No crackles or wheezes are heard. ABDOMEN: ?Soft, nontender, nondistended with good bowel sounds heard. BACK: No CVAT, no obvious deformity. EXTREMITIES: ?Without cyanosis, clubbing or edema. ecchymosis of B/L shins. NEUROLOGICAL: ?Grossly nonfocal. Alert and oriented, moving all 4 extremities. Observed to ambulate with normal gait. Skin: ?Warm and dry without any rash. Medications Administered Discontinued Medications Generic Name Dose Route Start Last Admin Trade Name Freq PRN Reason Stop Dose Admin Buspirone HCl 15 mg 02/26/25 22:15 02/27/25 14:04 Buspirone Hcl 5 Mg Tablet PO Not Given BID [facility] Buspirone HCl 15 mg 02/27/25 14:00 02/27/25 14:25 Buspirone Hcl 5 Mg Tablet PO 15 mg BID [facility] Administration Carvedilol 25 mg 02/26/25 22:15 02/27/25 14:04 Carvedilol 25 Mg Tablet PO Not Given BID [facility] Protocol Carvedilol 25 mg 02/27/25 14:00 02/27/25 14:25 Carvedilol 25 Mg Tablet PO 25 mg BID [facility] Administration Protocol Gabapentin 200 mg 02/26/25 22:15 02/27/25 14:04 Gabapentin 100 Mg Capsule PO Not Given BID [facility] Gabapentin 200 mg 02/27/25 14:00 02/27/25 14:23 Gabapentin 100 Mg Capsule PO 200 mg BID [facility] Administration Heparin Sodium (Porcine) 5,000 unit 02/27/25 10:00 02/27/25 14:05 Heparin Sodium,Porcine 5,000 Unit/Ml Vial SUBCUT Not Given Q8H [facility] Heparin Sodium (Porcine) 5,000 unit 02/27/25 14:00 02/27/25 14:22 Heparin Sodium,Porcine 5,000 Unit/Ml Vial SUBCUT 5,000 unit Q8H [facility] Administration Hydromorphone HCl 0.25 mg 02/26/25 22:08 02/27/25 14:21 Hydromorphone Hcl 0.5 Mg/0.5 Ml Syringe IVPUSH 0.25 mg Q4H PRN Administration Pain, Severe (Pain Scale 7-10) Protocol Acetaminophen 1,000 mg in 100 mls @ 400 mls/hr 02/26/25 16:35 02/26/25 19:42 Ofirmev IV 02/26/25 16:49 Infused ONCE ONE Infusion Levetiracetam 500 mg 02/26/25 22:15 02/27/25 14:04 Levetiracetam 500 Mg Tablet PO Not Given BID [facility] Levetiracetam 500 mg 03/01/25 16:45 02/27/25 14:24 Levetiracetam 500 Mg Tablet PO 500 mg [id number] [facility] Administration Levetiracetam 500 mg 02/27/25 14:00 02/27/25 14:33 Levetiracetam 500 Mg Tablet PO Not Given BID [facility] Losartan Potassium 100 mg 02/26/25 22:15 02/27/25 14:05 Losartan Potassium 50 Mg Tablet PO Not Given BID [facility] Protocol Losartan Potassium 100 mg 02/27/25 14:00 02/27/25 14:26 Losartan Potassium 50 Mg Tablet PO 100 mg BID [facility] Administration Protocol Senna/Docusate Sodium 2 tab 02/26/25 22:15 02/27/25 14:05 Sennosides/Docusate Sodium Tablet PO Not Given BID [facility] Senna/Docusate Sodium 2 tab 02/27/25 14:00 02/27/25 14:26 Sennosides/Docusate Sodium Tablet PO Not Given BID [facility] Sertraline HCl 50 mg 02/27/25 09:00 02/27/25 14:05 Sertraline Hcl 50 Mg Tablet PO Not Given DAILY [facility] Sertraline HCl 50 mg 02/27/25 14:00 02/27/25 14:25 Sertraline Hcl 50 Mg Tablet PO 50 mg DAILY [facility] Administration Sevelamer Carbonate 2,400 mg 02/27/25 08:00 02/27/25 14:23 Sevelamer Carbonate Tablet 800 Mg Tablet PO Not Given TIDWM [facility] Sodium Chloride 3 ml 02/27/25 00:00 02/27/25 08:37 0.9 % Sodium Chloride Flush 3 Ml Syringe IVFLUSH 3 ml QSHIFT [facility] Administration Medical Decision Making Medical Decision Making MDM Narrative: 29-year-old male with medical history of ESRD on dialysis, anemia, HTN, seizure disorder, presents to the ED today due to dizziness. Has ?not been feeling well? for the last 2 days due to migraine and weakness, with nausea and vomiting. Last episode of vomiting was yesterday. Took Tylenol this morning for migraine without effect. Tried to get out of bed this AM and felt dizzy, with blurry vision, and ?his legs gave out? when he fell to the floor. States his dizziness is more like lightheadedness does not feel as if he or the room is spinning, more so feels lightheaded when getting up from a sitting or lying position. Denies LOC, head strike. 30 minutes after episode of weakness he felt left-sided chest pain that is a constant dull pressure. Has been dealing with ?months of watery diarrhea?. Additionally patient states he has bilateral lower extremity muscle aches. Patient is on dialysis last dialysis was Saturday, was supposed to go for dialysis today but did not make the appointment due to not feeling well. VSS, patient seems tired, in no acute distress, nontoxic appearing. Physical exam benign, no focal neurological deficits, pupils appropriate size and reactive. EKG without ST elevation/ depressions, T-wave inversions of lateral leads will obtain troponin to R/O ACS. Awaiting lab results. Nursing reports patient was hypoxic while sleeping into the 70s, she placed him on 3 L of O2, is now 100%. Patient states he has undiagnosed ELZBIETA. Critical lab result of creatinine at 13.23-patient not dialyzed today Currently awaiting lab results, chest x-ray. Course 18:00- initial troponin elevated at 45.5, maybe elevated due to ESRD vs ACS. Will repeat for delta changes. Patient sleeping comfortably at this time. CXR does not show evidence of pulmonary effusion. Consult with Susan Powell PA-C for possible admission. 18:25- CXR without evidence of pleural effusion, or cardiopulmonary disease, no consolidations. Currently awaiting consult with [facility] to decide if patient needs dialysis tonight. Spoke with Dr. Renae of [facility] who advised patient could be dialyzed tomorrow. Susan Powell PA-C will admit to medicine. Patient aware of plan. Differential Diagnosis Differential Diagnoses: The differential diagnosis associated with the presentation includes TANIA Electrolyte abnormality Orthostatic hypotension Dehydration Pulmonary effusion Admission/Observation Consideration of admission/observation: Escalation of care including admission/observation considered Lab Data MDM Lab Attestation statement: I reviewed the patient's lab results. 02/27/25 06:51 02/27/25 06:51 Labs: Lab Results 02/26/25 Range/Units 16:47 WBC 5.0 (4.8-10.8) X10*3/uL RBC 2.52 L (4.60-5.80) X10*6/uL Hgb 8.2 L (14.0-18.0) g/dl Hct 23.2 L (42.0-52.0) % MCV 92.1 (80.0-98.0) fL MCH 32.5 (27.0-33.0) pg MCHC 35.3 (31.0-36.0) g/dl RDW 12.0 (11.0-16.0) % Plt Count 79 L D (160-400) X10*3/uL MPV 10.5 (9.4-12.4) fL Immature Gran % (Auto) 0.4 (0.0-0.4) % Neut % (Auto) 63.8 (45-73) % Lymph % (Auto) 19.6 L (20-40) % [place] % (Auto) 12.8 H (2-11) % Eos % (Auto) 3.0 (0-4) % Baso % (Auto) 0.4 (0-2) % Lymph # (Auto) 1.0 L (1.2-4.9) X10*3/uL [place] # (Auto) 0.6 (0.1-1.2) X10*3/uL Eos # (Auto) 0.2 (0.0-0.4) X10*3/uL Baso # (Auto) 0.0 (0.0-0.2) X10*3/uL Abs Immat Gran (auto) 0.02 (0.00-0.03) X10*3/uL Absolute Neuts (auto) 3.2 (2.0-8.3) x10*3/uL Absolute Nucleated RBC 0.000 (0.0-0.012) X10*3/uL Nucleated RBC % (auto) 0.0 (0.0-0.2) /100WBC Sodium 145 (135-145) mmol/L Potassium 4.2 (3.3-5.1) mmol/L Chloride 101 (96-108) mmol/L Carbon Dioxide 28 (22-29) mmol/L Anion Gap 20 (12-20) BUN 48 H (9-16) mg/dL Creatinine 13.23 H* (0.5-1.4) mg/dL Estim Creat Clear Calc 10.3 Estimated GFR 4 Random Glucose 93 (60-115) mg/dL Calcium 8.1 L (8.4-10.2) mg/dL Magnesium 1.8 (1.6-2.6) mg/dL Total Bilirubin 0.6 (0.0-1.0) mg/dL AST 16 (5-37) U/L ALT 10 (0-40) U/L Alkaline Phosphatase 154 H (39-117) U/L Total Creatine Kinase 60 (38-174) U/L Troponin I High Sens 45.5 H D (<3.5-35.0) ng/L Total Protein 5.7 L (6.5-8.0) g/dL Albumin 4.0 (3.5-5.0) g/dL Independent Interpretation I performed an independent interpretation of an: EKG and Plain X-Ray Interpretation: I personally interpreted the EKG Vent. Rate : 78 BPM Atrial Rate : 78 BPM P-R Int : 184 ms QRS Dur : 88 ms QT Int : 414 ms P-R-T Axes : 26 15 81 degrees QTcB Int : 471 ms Normal sinus rhythm Nonspecific T wave abnormality Prolonged QT Abnormal ECG When compared with ECG of 20-Oct-2024 05:24, T wave inversion now evident in Lateral leads Radiology Impression Discussion of test interpretation with radiology: I have reviewed the radiologist's reading. Radiologist Impression: COMPARISON: XR chest dated 10/20/24 at 05:46 EST FINDINGS: Right-sided chest port tip overlies the distal SVC. Normal heart size. No consolidation. No pleural effusion or pneumothorax. No fracture identified. IMPRESSION: 1. No consolidation. This document has been electronically signed by: Lester Wise MD on 02/26/2025 18:02:09 External Record Review External record reviewed: Inpatient record, Office record and Outpatient record Chronic Conditions Patient?s care impacted by: Other (ESRD on dialysis) Discharge Plan Discharge Clinical Impression: Dizziness Patient Disposition: Left Against Medical Advice Interventions: Admission Worksheet (ED) Last Done: 02/27/25 13:56 ED Discharge Assessment Last Done: 02/27/25 15:51 Discharge Date/Time: 02/27/25 15:51
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
[2025-02-26 16:52] LABS: MANUAL DIFF FLAG NO
[2025-02-26] MEDS: Acetaminophen 1,000 MG/100 ML PIGGYBACK 400 MG IV (16:52)
--- NOTE | 2025-02-26 16:57 | PC.NURSE ---
POX noted to be dipping briefly down into the high 70's. Provider notified. Patient placed on o2 therapy at 3L via NC.
[2025-02-26 16:58] LABS: Basophils Percent Auto 0.4 % (0-2); Eosinophils Absolute Auto 0.2 X10*3/uL (0.0-0.4); Hematocrit 23.2 % (42.0-52.0); Hemoglobin 8.2 g/dl (14.0-18.0); Imm Gran Abs Auto 0.02 X10*3/uL (0.00-0.03); Imm Gran Pct Auto 0.4 % (0.0-0.4); Lymphocytes Percent Auto 19.6 % (20-40); Mean Corpuscular HGB Conc 35.3 g/dl (31.0-36.0); Mean Corpuscular Hemoglobin 32.5 pg (27.0-33.0); Mean Corpuscular Volume 92.1 fL (80.0-98.0); Monocytes Absolute Auto 0.6 X10*3/uL (0.1-1.2); Monocytes Percent Auto 12.8 % (2-11); Neutrophils Absolute Auto 3.2 x10*3/uL (2.0-8.3); Neutrophils Percent Auto 63.8 % (45-73); Red Blood Count 2.52 X10*6/uL (4.60-5.80)
[2025-02-26 17:15] LABS: Mean Platelet Volume 10.5 fL (9.4-12.4); Platelet Count 79 X10*3/uL (160-400); Troponin-I High Sensitivity 45.5 ng/L (<3.5-35.0)
[2025-02-26 17:20] LABS: Alanine Aminotransferase 10 U/L (0-40); Anion Gap 20 (12-20); Aspartate Amino Transferase 16 U/L (5-37); Bilirubin Total 0.6 mg/dL (0.0-1.0); Blood Urea Nitrogen 48 mg/dL (9-16); Calcium 8.1 mg/dL (8.4-10.2); Carbon Dioxide 28 mmol/L (22-29); Chloride 101 mmol/L (96-108); Creatinine Clr Calc Pharmacy 10.3; Estimated Glomerular Filt Rate 4; Glucose Random 93 mg/dL (60-115); Magnesium 1.8 mg/dL (1.6-2.6); Potassium 4.2 mmol/L (3.3-5.1); Sodium 145 mmol/L (135-145); Total Protein 5.7 g/dL (6.5-8.0)
--- NOTE | 2025-02-26 18:43 | W.PM.DNNEP ---
Subjective Subjective Date of Service: 02/26/25 This patient was seen during dialysis. Physical Exam Vital Signs: Vital Signs: Last Vital Signs Temp 97.7 F 02/26/25 15:48 Pulse 79 02/26/25 17:59 Resp 14 02/26/25 17:59 BP 183/118 H 02/26/25 17:59 Pulse Ox 99 02/26/25 17:59 O2 Del Method Room Air 02/26/25 17:59 BMI result Body Mass Index 31.9 Assessment & Plan Assessment and plan (1) ESRD (end stage renal disease): Status: Acute Plan Missed dialysis MWF BP elevated 180/110 Currently not on O2 Presented with chest pain Potassium 4 plan: For dialysis tomorrow ( saturday) 3.5 hours UF 2.5-3 liter Blood flow 400 Dialysate 600 Heparin free Calcium 2.5, bicarbonate 36 For elevated BP, can consider nicardipine drip is BP remains elevated Time Spent With Patient Time: Total time managing care of this patient today ____ minutes. Procedures Date of Service Date of Service: 02/26/25
[2025-02-26 18:55] LABS: Troponin-I High Sensitivity 47.3 ng/L (<3.5-35.0)
--- NOTE | 2025-02-26 19:14 | PC.NURSE ---
Addendum entered by Mae Crump 02/26/25 19:53: Pt A&Ox3 stated that he has general feeling of not feeling well for the past couple days , w/ reports of pain migraine and legs pt described the pain as an 8 and feeling severely bruised . Pt states that he walks independently w/ a cane at home for balance and independent for ADL's w/ assitance for meal prep. Pt is on dialysis w/ a fistula in his left bicep, assessed and positive for thrill and bruit upon auscultation and port located on his right shoulder, flushed w/ NS and capped. o2 removed at this time, pt states not using o2 at home. Pt states being limited to receiving medications r/t ESRD. Original Note: Assumed care of this Pt at this time.
[2025-02-26 19:58] LABS: Alkaline Phosphatase 154 U/L (39-117)
--- NOTE | 2025-02-26 20:46 | PHA.MEDREC ---
Pharmacy Consult ? Medication Reconciliation Pharmacy has completed the medication reconciliation.Med rec complete. Spoke to patient, and used list from dialysis center and pharmacy claim history.
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
[2025-02-26] MEDS: Losartan Potassium 50 MG TABLET 100 MG PO (22:54)
[2025-02-26] MEDS: busPIRone HCl 5 MG TABLET 15 MG PO (22:55)
[2025-02-26] MEDS: Gabapentin 100 MG CAPSULE 200 MG PO (22:56)
[2025-02-26] MEDS: levETIRAcetam 500 MG TABLET PO (22:56)
[2025-02-26] MEDS: carvediloL 25 MG TABLET PO (22:56)
[2025-02-26] MEDS: HYDROmorphone HCl 0.5 MG/0.5 ML SYRINGE 0.25 MG IVPUSH (23:00)
[2025-02-26] MEDS: 0.9 % Sodium Chloride Flush 3 ML SYRINGE IVFLUSH (23:02)
[2025-02-27] VITALS (7 sets, daily range): BP systolic 130–148; BP diastolic 84–110; PULSE 73–86; RESP 13–20; TEMP 36.1–37.2; O2SAT 93–100
[2025-02-27] MEDS: HYDROmorphone HCl 0.5 MG/0.5 ML SYRINGE 0.25 MG IVPUSH ×3 (03:29→14:21)
[2025-02-27 07:12] LABS: Hematocrit 24.8 % (42.0-52.0); Hemoglobin 8.5 g/dl (14.0-18.0); Mean Corpuscular HGB Conc 34.3 g/dl (31.0-36.0); Mean Corpuscular Hemoglobin 32.2 pg (27.0-33.0); Mean Corpuscular Volume 93.9 fL (80.0-98.0); Mean Platelet Volume 10.9 fL (9.4-12.4); Red Blood Count 2.64 X10*6/uL (4.60-5.80); White Blood Count 4.4 X10*3/uL (4.8-10.8)
[2025-02-27 07:13] LABS: Platelet Count 82 X10*3/uL (160-400)
[2025-02-27 07:24] LABS: Anion Gap 21 (12-20); Blood Urea Nitrogen 54 mg/dL (9-16); Calcium 8.2 mg/dL (8.4-10.2); Carbon Dioxide 26 mmol/L (22-29); Chloride 101 mmol/L (96-108); Creatinine Clr Calc Pharmacy 9.4; Estimated Glomerular Filt Rate 4; Glucose Random 110 mg/dL (60-115); Potassium 4.5 mmol/L (3.3-5.1); Sodium 143 mmol/L (135-145)
[2025-02-27] MEDS: 0.9 % Sodium Chloride Flush 3 ML SYRINGE IVFLUSH (08:37)
--- NOTE | 2025-02-27 09:12 | PC.NURSE ---
Brought to dialysis at this time. Will medicate & resume care upon return from dialysis.
--- NOTE | 2025-02-27 09:44 | HO.PM.IMPN ---
Subjective Subjective Date of Service: 02/27/25 Interval History: chronic diarrhea feeling weak, headache Physical Exam Vital Signs: Vital Signs: Last Vital Signs Temp 97 F 02/27/25 06:06 Pulse 73 02/27/25 06:06 Resp 13 02/27/25 06:06 BP 130/86 02/27/25 06:06 Pulse Ox 93 02/27/25 06:06 O2 Del Method Room Air 02/27/25 06:06 O2 Flow Rate 2 02/26/25 19:38 BMI result Body Mass Index 31.9 General: AO X 3, no acute distress Resp: CTA bilateral, no accessory muscles used CVS: S1,S2,RRR GI: soft, non tender, non distended Neuro: motor grossly intact, alert Psych: appropriate affect, appropriate insight Objective Data Active Medications Acetaminophen (Acetaminophen 325 Mg Tablet) 975 mg PO Q6H PRN PRN Reason: Pain, Mild 1-3,fever,headache Acetaminophen/Codeine Phosphate (Acetaminophen/Codeine 300-30mg Tablet) 1 tab PO Q4H PRN PRN Reason: Pain, Moderate(Pain Scale 4-6) Alprazolam (Alprazolam 0.5 Mg Tablet) 0.5 mg PO BID PRN PRN Reason: Anxiety Atorvastatin Calcium (Atorvastatin Calcium 20 Mg Tablet) 20 mg PO BEDTIME [facility] Buspirone HCl (Buspirone Hcl 5 Mg Tablet) 15 mg PO BID [facility] Last Admin: 02/26/25 22:55 Dose: 15 mg Documented By: RAGHAVENDRA Calcium Carbonate (Calcium Carbonate 750 Mg Tab.Chew) 750 mg PO Q4H PRN PRN Reason: Heartburn Carvedilol (Carvedilol 25 Mg Tablet) 25 mg PO BID [facility]; Protocol Last Admin: 02/26/25 22:56 Dose: 25 mg Documented By: RAGHAVENDRA Clonidine (Clonidine 0.3 Mg Patch.Tdwk) 0.3 mg TRANSDERMA FR@0900 [facility]; Protocol Gabapentin (Gabapentin 100 Mg Capsule) 200 mg PO BID [facility] Last Admin: 02/26/25 22:56 Dose: 200 mg Documented By: RAGHAVENDRA Hydromorphone HCl (Hydromorphone Hcl 0.5 Mg/0.5 Ml Syringe) 0.25 mg IVPUSH Q4H PRN; Protocol PRN Reason: Pain, Severe (Pain Scale 7-10) Last Admin: 02/27/25 08:37 Dose: 0.25 mg Documented By: RAGHAVENDRA Levetiracetam (Levetiracetam 500 Mg Tablet) 500 mg PO BID [facility] Last Admin: 02/26/25 22:56 Dose: 500 mg Documented By: RAGHAVENDRA Levetiracetam (Levetiracetam 500 Mg Tablet) 500 mg PO MoWeFr@1645 [facility] Losartan Potassium (Losartan Potassium 50 Mg Tablet) 100 mg PO BID [facility]; Protocol Last Admin: 02/26/25 22:54 Dose: 100 mg Documented By: RAGHAVENDRA Magnesium Hydroxide (Milk Of Magnesia 30 Ml Oral.Susp) 30 ml PO DAILY PRN PRN Reason: Constipation Melatonin (Melatonin 3 Mg Tablet) 6 mg PO BEDTIME PRN PRN Reason: Insomnia Multivitamins/Vitamin C (Multivitamin Tablet) 1 tab PO BEDTIME [facility] Ondansetron HCl (Ondansetron Hcl 4 Mg/2 Ml Vial) 4 mg IVPUSH Q8H PRN PRN Reason: Nausea and Vomiting Senna/Docusate Sodium (Sennosides/Docusate Sodium Tablet) 2 tab PO BID [facility] Last Admin: 02/26/25 23:41 Dose: Not Given Documented By: RAGHAVENDRA Non-Admin Reason: Patient Refused Sertraline HCl (Sertraline Hcl 50 Mg Tablet) 50 mg PO DAILY [facility] Sevelamer Carbonate (Sevelamer Carbonate Tablet 800 Mg Tablet) 2,400 mg PO TIDWM [facility] Sodium Chloride (0.9 % Sodium Chloride Flush 3 Ml Syringe) 3 ml IVFLUSH QSHIFT [facility] Last Admin: 02/27/25 08:37 Dose: 3 ml Documented By: RAGHAVENDRA Trazodone HCl (Trazodone Hcl 50 Mg Tablet) 50 mg PO BEDTIME PRN PRN Reason: Sleep Labs 02/27/25 06:51 02/27/25 06:51 Labs: Laboratory Results - last 24 hr 02/26/25 02/26/25 02/27/25 16:47 18:27 06:51 MCV 92.1 93.9 MCH 32.5 32.2 MCHC 35.3 34.3 RDW 12.0 12.0 Plt Count 79 L D 82 L MPV 10.5 10.9 Immature Gran % (Auto) 0.4 Neut % (Auto) 63.8 Lymph % (Auto) 19.6 L Charlton % (Auto) 12.8 H Eos % (Auto) 3.0 Baso % (Auto) 0.4 Lymph # (Auto) 1.0 L [place] # (Auto) 0.6 Eos # (Auto) 0.2 Baso # (Auto) 0.0 Abs Immat Gran (auto) 0.02 Absolute Neuts (auto) 3.2 Absolute Nucleated RBC 0.000 0.000 Nucleated RBC % (auto) 0.0 0.0 Anion Gap 20 21 H Estim Creat Clear Calc 10.3 9.4 Estimated GFR 4 4 Random Glucose 93 110 Calcium 8.1 L 8.2 L Magnesium 1.8 Total Bilirubin 0.6 AST 16 ALT 10 Alkaline Phosphatase 154 H Total Creatine Kinase 60 Troponin I High Sens 45.5 H D 47.3 H Total Protein 5.7 L Albumin 4.0 Assessment and Plan (1) Uncontrolled hypertension: Status: Acute Plan 29M PMH ESRD on HD, htn, opiate dependence, seizure disorder presented with chest pain, dizziness, weakness, fall Chest pain, dizziness, weakness, fall, nausea vomiting trops flat follow up cards echo chronic diarrhea check stool studies celiac labs esrd hd HD htn continue clonidine, coreg, losartan seizure keppra dvt prophylaxis - hep sq full code reason for continued hospitalization:feeling unwell Quality Stroke Does the patient have a stroke diagnosis?: No VTE Prior VTE?: No VTE Risk Level:: Medical - moderate - high VTE Device Contraindication: Treatment Not Indicated VTE Drug Contraindication: N/A - Med Ordered
--- NOTE | 2025-02-27 11:22 | MHC.CM.PN ---
CM met with Patient at bedside, in HD, and addressed IMM with him, providing Patient with the original and a copy will be placed on the chart.Patient lives in a house with his Mother/HCP/Caitlin, his Step Father, Sister (FOOTWEAR SALES COORDINATOR), and Nephew and he uses a cane to assist with mobility. Patient has a [employer] & monthly RN visits and he attends HD @ [facility] in [place]; home/resume said services is the goal. CM has initiated and will follow for dc planning. PCP is Dr. Pillo Trejo and Mother will transport at time of dc.
--- NOTE | 2025-02-27 13:02 | PC.NURSE ---
Received call from plastic tile setter. Patient to come back to ED 18. In report, RN stated that patient has a headache, and has been hypertensive while in dialysis. 4L dialysis. Patient to be medicated for pain & hypertension upon return.
[2025-02-27] MEDS: Heparin Sodium,Porcine 5,000 UNIT/ML VIAL 5000 UNIT SUBCUT (14:22)
[2025-02-27] MEDS: Gabapentin 100 MG CAPSULE 200 MG PO (14:23)
[2025-02-27] MEDS: levETIRAcetam 500 MG TABLET PO (14:24)
[2025-02-27] MEDS: Sertraline HCL 50 MG TABLET PO (14:25)
[2025-02-27] MEDS: carvediloL 25 MG TABLET PO (14:25)
[2025-02-27] MEDS: busPIRone HCl 5 MG TABLET 15 MG PO (14:25)
[2025-02-27] MEDS: Losartan Potassium 50 MG TABLET 100 MG PO (14:26)
--- NOTE | 2025-02-27 15:15 | PM.DS ---
DS: Providers Provider Date of Service: 02/27/25 Date of admission: 02/26/25 18:22 Date of discharge: 02/27/25 Primary care physician: Pillo Trejo [facility]- Consults: 02/26/25 19:35 Consult to Nephrology Routine Consulting Provider: [facility] Reason for consultation: ESRD on HD M/W/F, missed dialysis today DS: Diagnosis Discharge Diagnosis (1) Uncontrolled hypertension: Status: Acute DS: Summary Hospital Course Hospital Course: from initial hpi: 29-year-old male with a past medical history significant for ESRD on HD MWF, history OUD (sober x5 years per patient), chronic anemia, reported undiagnosed ELZBIETA, HTN, seizure disorder (last seizure years ago), who presented to the ED due to multiple complaints including left-sided chest pain, dizziness, weakness, headache, nausea and vomiting. The patient reports that he missed dialysis today as he was not feeling well. When he was getting out of bed earlier today his legs gave out on him due to weakness. He reports he did not lose consciousness but is unaware if he hit his head. His headache has been going on for the past few days he reports he has never had a headache last this long and has never been this severe. His chest pain has improved since arriving to the ED but he describes it as a chest pressure that is constant. He was also found to be hypoxic in the ED while he was sleeping , saturating in the 70s, patient reports that he has undiagnosed sleep apnea. The last time he vomited was yesterday. He has been struggling with watery diarrhea for the past few months. Currently he rates his headache at 8/10 he reports it is on the left side traveling from the front to the occipital region. When he fell earlier today he did have some blurry vision however this has subsided. hospital course: Patient was admitted for chest pain, dizziness, weakness, fall, nausea and vomiting. His troponins were flat. No signs of ACS. Did not want to stay for echocardiogram or cardiology eval states he is feeling much better except for mild residual headache we will be discharged home and should follow up with hemodialysis and monitor blood pressures for chronic diarrhea recommendations were to follow up with Gastroenterology workup. For end-stage renal disease underwent hemodialysis. For hypertension uncontrolled was continued on clonidine, Coreg, losartan improved after dialysis. For seizure was continued on Keppra Time Attestation Discharge Coordination Time (in mins): 33 Quality: Safe Use of Opioids Does Pt have an Active Cancer Diagnosis on the Problem List?: No Quality: Stroke Does the patient have a stroke diagnosis?: No Physical Exam Vital Signs: Vital Signs: Last Vital Signs Temp 97.2 F 02/27/25 14:13 Pulse 84 02/27/25 14:25 Resp 20 02/27/25 14:21 BP 148/110 H 02/27/25 14:26 Pulse Ox 100 02/27/25 14:13 O2 Del Method Room Air 02/27/25 14:13 O2 Flow Rate 2 02/26/25 19:38 BMI result Body Mass Index 31.9 General: AO X 3, no acute distress Resp: CTA bilateral, no accessory muscles used CVS: S1,S2,RRR GI: soft, non tender, non distended Neuro: motor grossly intact, alert Psych: appropriate affect, appropriate insight DS: Data Data Completed and Pending Completed studies during hospitalization [Text1]: Procedures Performance of Urinary Filtration, Intermittent, Less than 6 Hours Per Day (10/20/24) Transfusion of Nonautologous Red Blood Cells into Peripheral Vein, Percutaneous Approach (04/19/23) Labs on day of discharge: Laboratory Results - last 24 hr 02/26/25 02/26/25 02/27/25 16:47 18:27 06:51 WBC 5.0 4.4 L RBC 2.52 L 2.64 L Hgb 8.2 L 8.5 L Hct 23.2 L 24.8 L MCV 92.1 93.9 MCH 32.5 32.2 MCHC 35.3 34.3 RDW 12.0 12.0 Plt Count 79 L D 82 L MPV 10.5 10.9 Immature Gran % (Auto) 0.4 Neut % (Auto) 63.8 Lymph % (Auto) 19.6 L [place] % (Auto) 12.8 H Eos % (Auto) 3.0 Baso % (Auto) 0.4 Lymph # (Auto) 1.0 L [place] # (Auto) 0.6 Eos # (Auto) 0.2 Baso # (Auto) 0.0 Abs Immat Gran (auto) 0.02 Absolute Neuts (auto) 3.2 Absolute Nucleated RBC 0.000 0.000 Nucleated RBC % (auto) 0.0 0.0 Sodium 145 143 Potassium 4.2 4.5 Chloride 101 101 Carbon Dioxide 28 26 Anion Gap 20 21 H BUN 48 H 54 H Creatinine 13.23 H* 14.35 H* Estim Creat Clear Calc 10.3 9.4 Estimated GFR 4 4 Random Glucose 93 110 Calcium 8.1 L 8.2 L Magnesium 1.8 Total Bilirubin 0.6 AST 16 ALT 10 Alkaline Phosphatase 154 H Total Creatine Kinase 60 Troponin I High Sens 45.5 H D 47.3 H Total Protein 5.7 L Albumin 4.0 Discharge Plan Discharge Anticipated Discharge Date/Time: 02/27/25 15:13 Patient Disposition: Home, Self-Care Discharge Diagnosis: htn Referrals: Pillo Trejo FNP-BECKI [Primary Care Provider] - 1 Week Ericka Renae MD [Physician] - () Discharge Medications: Continued atorvastatin 20 mg tablet 20 mg PO BEDTIME sennosides-docusate sodium [Senna Plus] 8.6-50 mg tablet 2 tab PO BID clonidine 0.3 mg/24 hr patch weekly 1 patch topical FR@0900 gabapentin 100 mg capsule 200 mg PO BID sertraline 50 mg tablet 50 mg PO DAILY sevelamer carbonate 800 mg tablet 2,400 mg PO TIDWMEAL ketoconazole 2 % Cream 1 appl TOPICAL DAILY PRN (Reason: Rash) Rx Instructions: face levetiracetam 500 mg tablet 500 mg PO BID levetiracetam 500 mg Tablet 500 mg PO DAILY PRN (Reason: AFTER DIALYSIS ON DIALYSIS DAYS) Rx Instructions: ADDITIONAL TABLET AFTER DIALYSIS nitroglycerin 0.4 mg Tablet, Sublingual 0.4 mg SUBLINGUAL Q5M PRN (Reason: Chest Pain) Rx Instructions: do not exceed 3 doses per episode losartan 100 mg tablet 100 mg PO BID carvedilol 12.5 mg tablet 25 mg PO BID trazodone 50 mg tablet 50 mg PO BEDTIME PRN (Reason: Sleep) Triphrocaps 1 mg capsule 1 cap PO BEDTIME buspirone 15 mg tablet 15 mg PO BID alprazolam 0.5 mg Tablet Extended Release 24 Hr 0.5 mg PO BID PRN (Reason: Anxiety) hydrocortisone 2.5 % Cream 1 appl TOPICAL DAILY PRN (Reason: Rash) Protocol: Apply to: Apply to: FACE ondansetron 4 mg tablet,disintegrating 4 mg PO Q8H PRN (Reason: nausea and vomiting) Qty: 14 0RF Discharge Orders: Discharge Order (Routine); Ordered 02/27/25 Ordered By: Aftab Rios Diet: Low salt diet Activity on Discharge: As tolerated Stand Alone Forms: Patient Portal Discharge page Print Language: Polish Care Plan Goals: recovery Health Concerns: htn, headache Plan of Treatment: follow with HD, monitor bp Assessment: see above
--- NOTE | 2025-02-27 15:18 | MHC.CM.PN ---
Patient has been medically cleared for dc to home today, self care.
--- NOTE | 2025-02-27 15:41 | PC.NURSE ---
Patient wishes to leave AMA. Dr. Rios came to bedside, explained risks of leaving AMA. States that the rooms on 4th floor are 'too hot'. Environmental notified, aware, fixed the issue. Pt continues to refuse admission stating I'm just done, I want to go, you can't change my mind . Agrees to stay for AMA paperwork, but insists on discharge. Floor RN (Felicity) notified. Bed cancelled.
== END 2025-02-27 16:04 | disposition home or self-care (01) | DRG 682 ==
LOC: HO.ED 18:40 → HO.EDOVER 18:45 → HO.IMC 02-27 13:38 → HO.EDOVER 02-27 15:24
PROVIDERS: Physician Assistant; Admitting Provider Student in an Organized Health Care Education/Training Program; Emergency Provider Emergency Medicine; PCP Nurse Practitioner Family; Visit Provider Internal Medicine
DX: I12.0 Hypertensive chronic kidney disease with stage 5 chronic kidney disease or end stage renal disease (principal); N18.6 End stage renal disease; I16.0 Hypertensive urgency; E66.811 Obesity, class 1; K52.9 Noninfective gastroenteritis and colitis, unspecified; G47.33 Obstructive sleep apnea (adult) (pediatric); G40.909 Epilepsy, unspecified, not intractable, without status epilepticus; Z71.3 Dietary counseling and surveillance; Z68.31 Body mass index [BMI] 31.0-31.9, adult; D63.1 Anemia in chronic kidney disease; Z99.2 Dependence on renal dialysis; Z87.891 Personal history of nicotine dependence; Z91.158 Patient's noncompliance with renal dialysis for other reason; Z79.899 Other long term (current) drug therapy
CPT/HCPCS: 36415; 70450; 71046; 72125; 80048; 80053; 82550; 83735; 84484; 85025; 85027; 90999; 93005; 99285; J0131; J1171; J1644

== ENCOUNTER → 2025-02-26 15:48 | Outpatient (BNV) | payer OTHER, SELFPAY | PROVIDERS: Admitting Provider Student in an Organized Health Care Education/Training Program; Emergency Provider Emergency Medicine; PCP Nurse Practitioner Family; Visit Provider Internal Medicine | DX: R94.31 Abnormal electrocardiogram [ECG] [EKG] (principal); R07.9 Chest pain, unspecified | CPT/HCPCS: 93010 ==

== ENCOUNTER → 2025-02-26 17:28 | Outpatient (BNV) | payer OTHER, SELFPAY | PROVIDERS: Admitting Provider Student in an Organized Health Care Education/Training Program; Emergency Provider Emergency Medicine; PCP Nurse Practitioner Family; Visit Provider Radiology Diagnostic Radiology | DX: M50.30 Other cervical disc degeneration, unspecified cervical region (principal); G44.309 Post-traumatic headache, unspecified, not intractable | CPT/HCPCS: 70450; 72125 ==

== ENCOUNTER → 2025-02-26 18:22 | Outpatient (BNV) | payer OTHER, SELFPAY | PROVIDERS: Admitting Provider Student in an Organized Health Care Education/Training Program; Emergency Provider Emergency Medicine; PCP Nurse Practitioner Family; Visit Provider Internal Medicine | DX: I16.0 Hypertensive urgency (principal); N18.6 End stage renal disease; R42 Dizziness and giddiness; R79.89 Other specified abnormal findings of blood chemistry; I12.0 Hypertensive chronic kidney disease with stage 5 chronic kidney disease or end stage renal disease | CPT/HCPCS: 99223; 99239 ==

== ENCOUNTER 2025-02-28 19:43 | Inpatient (IN) | payer OTHER, SELFPAY ==
--- NOTE | 2025-02-28 | EEG_ITS ---
FINDINGS: The waking background activity consists of a moderate voltage 6.5 to 7.5 Hz diffuse theta seen most prominently in the posterior quadrants, intermixed anteriorly with low voltage, fast frequencies and muscle artifacts. Photic stimulation is without activation. Hyperventilation was omitted. IMPRESSION: This EEG is considered mildly abnormal due to mild diffuse background slowing consistent with a diffuse encephalopathic process. No focal abnormalities or epileptiform discharges seen. MD MARLEN Winter/BALA / [id number]
--- NOTE | ~2025-02-28 | CT_ITS ---
CLINICAL HISTORY: fall CT head without contrast Comparison: CT/SR - CT HEAD/BRAIN WO IV CON - 02/26/25 21:30 EDT Findings: No acute intracranial hemorrhage, transcortical infarct, hydrocephalus or mass effect. Parenchymal calcifications in the inferior right frontal lobe, similar to recent prior. Bruce-white matter differentiation is preserved. There is no sinus or mastoid fluid. The orbits are within normal limits. There is no acute fracture. IMPRESSION: 1. No acute intracranial findings. This document has been electronically signed by: Francoise Schmidt MD on 02/28/2025 23:47:09
[2025-02-28 19:49] VITALS: BP 178/112; PULSE 72; RESP 18; TEMP 36.6; O2SAT 100
--- NOTE | 2025-02-28 19:53 | ECG_ITS ---
Test Reason : SYNCOPE Blood Pressure : */* mmHG Vent. Rate : 71 BPM Atrial Rate : 71 BPM P-R Int : 164 ms QRS Dur : 94 ms QT Int : 422 ms P-R-T Axes : -29 -24 146 degrees QTcB Int : 458 ms Normal sinus rhythm ST & T wave abnormality, consider lateral ischemia Abnormal ECG When compared with ECG of 26-Feb-2025 15:51, No significant change was found Referred By: Generic ED Physician Electronically Signed By: MAGALY OLMOS MD
[2025-02-28 19:54] VITALS: BP 185/117; PULSE 79; O2SAT 100; BMI 31.7
--- NOTE | 2025-02-28 20:04 | PC.NURSE ---
Addendum entered by Donaldo iSngh RN 02/28/25 20:07: also endorses mild photosensitivity. call navarro in reach Original Note: denies vision changes, dizziniess, numbness/tingling. strength normal and facial symmetry intact bilat. alert and oriented. calm but tearful. frontal headache with small lac to top middle forehead, right knee pain worse with movement, left chest pain worse on palpation. c collar in place.
--- NOTE | 2025-02-28 20:57 | PC.NURSE ---
port accessed using sterile technique. dressing in place with green cap, line clamped. labs sent
--- NOTE | 2025-02-28 21:19 | ED_ITS ---
HPI - Fall General Chief Complaint: Fall Stated Complaint: fall with head strike Time Seen by Provider: 02/28/25 21:16 Source: patient and family Mode of arrival: EMS Limitations: no limitations History of Present Illness ED Provider: HPI Narrative: 29-year-old male with a past medical history significant for ESRD on HD MWF, history OUD (sober x5 years per patient), chronic anemia, reported undiagnosed ELZBIETA, HTN, seizure disorder (last seizure years ago), comes here for increased dizziness and headache found himself on the floor was seen here on 02/26 with similar complaints workup was negative says that when he feels increased anxiety this can happen last seizure was about 1 year ago patient had dialysis yesterday Related Data Home Medications ?Medication ?Instructions ?Recorded ?Confirmed atorvastatin 20 mg tablet 20 mg PO BEDTIME 03/13/23 02/26/25 clonidine 0.3 mg/24 hr weekly 1 patch topical FR@0900 03/13/23 02/26/25 transdermal patch gabapentin 100 mg capsule 200 mg PO BID 03/13/23 02/26/25 ketoconazole 2 % topical cream 1 appl topical DAILY PRN Rash 03/13/23 02/26/25 sennosides 8.6 mg-docusate sodium 2 tab PO BID 03/13/23 02/26/25 50 mg tablet (Senna Plus) sertraline 50 mg tablet 50 mg PO DAILY 03/13/23 02/26/25 sevelamer carbonate 800 mg tablet 2,400 mg PO TIDWMEAL 03/13/23 02/26/25 levetiracetam 500 mg tablet 500 mg PO BID 06/14/23 02/26/25 levetiracetam 500 mg tablet 500 mg PO DAILY PRN AFTER DIALYSIS 02/24/24 02/26/25 ON DIALYSIS DAYS losartan 100 mg tablet 100 mg PO BID 02/24/24 02/26/25 nitroglycerin 0.4 mg sublingual 0.4 mg sublingual Q5M PRN Chest 02/24/24 02/26/25 tablet Pain alprazolam 0.5 mg tablet,extended 0.5 mg PO BID PRN Anxiety 02/26/25 02/26/25 release 24 hr buspirone 15 mg tablet 15 mg PO BID 02/26/25 02/26/25 carvedilol 12.5 mg tablet 25 mg PO BID 02/26/25 02/26/25 hydrocortisone 2.5 % topical cream 1 appl topical DAILY PRN Rash 02/26/25 02/26/25 trazodone 50 mg tablet 50 mg PO BEDTIME PRN Sleep 02/26/25 02/26/25 vitamin B complex and vitamin C 1 cap PO BEDTIME 02/26/25 02/26/25 no.20-folic acid 1 mg capsule (Triphrocaps) Previous Rx's ?Medication ?Instructions ?Recorded ondansetron 4 mg disintegrating 4 mg PO Q8H PRN nausea and 10/20/24 tablet vomiting #14 tabs Allergies Allergy/AdvReac Type Severity Reaction Status Date / Time ceftriaxone AdvReac Nausea and Verified 02/28/25 20:02 Vomiting lorazepam [From Ativan] AdvReac Shakiness Verified 02/28/25 20:02 metoclopramide [From Reglan] AdvReac Nausea Verified 02/28/25 20:02 Review of Systems 2 Review of Systems: Yes all other systems are reviewed and are negative [facility] Past Medical History Medical History (Updated 03/01/25 @ 06:06 by Michele Esqueda MD) Syncope ESRD needing dialysis Drug abuse Normocytic anemia CKD (chronic kidney disease) Anemia HTN (hypertension) Seizure disorder ESRD on dialysis End stage chronic kidney disease Bilateral lower extremity pain Back pain Family History Family History Sister Substance use disorder Social History Social History Household Members: Family Household Members Other:: mom, step dad, sister and nephew Housing: House Do you presently have visiting nurse or other home services: No Alcohol intake: never Comment: Pt refusing bed alarm Patient Tobacco Use Status: Never used Tobacco Smoked in Last 30 Days: No e-Cigarette/Vaping Use: Never Used Use of substances other than those prescribed or required for medical reasons: Yes Substance Use Type: Marijuana Advance Directives: Yes Advance Directives on File: Yes Advance Directives Date on File: 12/11/23 Do you have a plan to hurt others: No Plan service: No Cognitive needs: No Hearing needs: No Vision needs: No Physical Exam 2 Vital Signs: Vital Signs: Last Vital Signs Temp 98.6 F 03/01/25 00:00 Pulse 83 03/01/25 00:00 Resp 13 03/01/25 00:33 BP 153/81 H 03/01/25 00:00 Pulse Ox 98 03/01/25 00:00 O2 Del Method Room Air 03/01/25 00:00 BMI result Body Mass Index 31.7 Appearance: Alert. Oriented X3. No acute distress. Eyes: PERRLA, No Nystagmus HEENT: Pharynx normal. Oral Mucosa moist superficial abrasion of the forehead no tongue bite Neck: Normal inspection. Neck supple. CVS: Normal heart rate and rhythm. Pulses normal. Respiratory: No respiratory distress. Equal air entry bilateral, no wheezing/rales/rhonchi Abdomen: Soft and nontender. Bowel sounds are present, no mass palpable, no CVA tenderness Skin: Skin warm and dry. Normal skin color. Normal skin turgor. Extremities: No lower extremity edema. No calf tenderness Neuro: Oriented X 3. No motor deficit. No sensory deficit.No cerebellar signs , cranial nerves II-XII intact Medications Administered Generic Name Dose Route Start Last Admin Trade Name Freq PRN Reason Stop Dose Admin Acetaminophen 650 mg 02/28/25 23:53 03/01/25 02:37 Acetaminophen 325 Mg Tablet PO 650 mg Q6H PRN Administration Pain, Mild 1-3,fever,headache Sodium Chloride 3 ml 03/01/25 00:00 03/01/25 00:38 0.9 % Sodium Chloride Flush 3 Ml Syringe IVFLUSH Not Given QSHIFT DENZEL Discontinued Medications Generic Name Dose Route Start Last Admin Trade Name Freq PRN Reason Stop Dose Admin Acetaminophen/Butalbital/Caffeine 1 tab 02/28/25 21:36 02/28/25 22:05 Butalb/Acetamin/Caff 50/325/40 Tablet PO 02/28/25 21:37 1 tab ONCE ONE Administration Carvedilol 25 mg 02/28/25 22:22 02/28/25 23:44 Carvedilol 25 Mg Tablet PO 02/28/25 22:23 25 mg ONCE ONE Administration Protocol Hydromorphone HCl 0.5 mg 03/01/25 04:41 03/01/25 05:06 Hydromorphone Hcl 0.5 Mg/0.5 Ml Syringe IVPUSH 03/01/25 04:42 0.5 mg ONCE ONE Administration Protocol Levetiracetam 500 mg 02/28/25 23:03 02/28/25 23:43 Levetiracetam 500 Mg Tablet PO 02/28/25 23:04 500 mg ONCE ONE Administration Losartan Potassium 100 mg 02/28/25 22:22 02/28/25 23:43 Losartan Potassium 50 Mg Tablet PO 02/28/25 22:23 100 mg ONCE ONE Administration Protocol Morphine Sulfate 4 mg 02/28/25 23:53 03/01/25 00:03 Morphine Sulfate 4 Mg/Ml Cartridge IVPUSH 02/28/25 23:54 4 mg ONCE ONE Administration Protocol Ondansetron HCl 4 mg 02/28/25 23:54 03/01/25 00:03 Ondansetron Hcl 4 Mg/2 Ml Vial IVPUSH 02/28/25 23:55 4 mg ONCE ONE Administration Medical Decision Making Medical Decision Making [facility] Narrative: Patient with passing out episode details not available does not seem like to be seizure as when he had a seizure in the past he had different symptoms at this time also no tongue bite patient was just admitted and discharged yesterday after dialysis no chest pain no cardiac arrhythmia patient wishes evening dose of blood pressure which will give it to him now Patient's family arrived case discussed in details again Patient with end-stage renal disease on dialysis been having the syncope episode for last several years finally diagnose in 03/15 as seizures and started on Keppra since then patient did not have any episode accept on Saturday when he stood up he felt funny and slumped down came in admitted workup was negative today mother was at home patient was in the bed got up and fell again in his still patient's lost consciousness and does not remember what happened no seizure activity noticed mother also did not notice any seizure activity in his seems like this episode is same as what he used to have before Keppra was started patient has been feeling weak and tired at this time will admit patient for syncope episode rule out cardiac arrhythmias seizures Differential Diagnosis Differential Diagnoses: The differential diagnosis associated with the presentation includes Syncope/seizure/cardiac arrhythmias Lab Data [facility] Lab Attestation statement: I reviewed the patient's lab results. 03/01/25 04:42 03/01/25 04:42 Labs: Lab Results 02/28/25 Range/Units 20:50 Sodium 142 (135-145) mmol/L Potassium 3.7 (3.3-5.1) mmol/L Chloride 98 (96-108) mmol/L Carbon Dioxide 27 (22-29) mmol/L Anion Gap 21 H (12-20) BUN 40 H (9-16) mg/dL Creatinine 12.09 H* (0.5-1.4) mg/dL Estim Creat Clear Calc 11.2 Estimated GFR 5 Random Glucose 93 (60-115) mg/dL Calcium 8.9 D (8.4-10.2) mg/dL Magnesium 1.8 (1.6-2.6) mg/dL Total Bilirubin 0.8 (0.0-1.0) mg/dL AST 15 (5-37) U/L ALT 7 (0-40) U/L Alkaline Phosphatase 185 H (39-117) U/L Troponin I High Sens 38.7 H (<3.5-35.0) ng/L Total Protein 6.4 L (6.5-8.0) g/dL Albumin 4.4 (3.5-5.0) g/dL Discharge Plan Discharge Clinical Impression: Uncontrolled hypertension, ESRD (end stage renal disease), Hypertensive urgency, Elevated troponin Syncope Qualifiers: Syncope type: unspecified Qualified Code(s): R55 - Syncope and collapse Patient Disposition: Admitted As Inpatient
[2025-02-28 21:30] LABS: Alanine Aminotransferase 7 U/L (0-40); Albumin Level 4.4 g/dL (3.5-5.0); Alkaline Phosphatase 185 U/L (39-117); Anion Gap 21 (12-20); Aspartate Amino Transferase 15 U/L (5-37); Bilirubin Total 0.8 mg/dL (0.0-1.0); Blood Urea Nitrogen 40 mg/dL (9-16); Calcium 8.9 mg/dL (8.4-10.2); Carbon Dioxide 27 mmol/L (22-29); Chloride 98 mmol/L (96-108); Creatinine Clr Calc Pharmacy 11.2; Estimated Glomerular Filt Rate 5; Glucose Random 93 mg/dL (60-115); Magnesium 1.8 mg/dL (1.6-2.6); Potassium 3.7 mmol/L (3.3-5.1); Sodium 142 mmol/L (135-145); Total Protein 6.4 g/dL (6.5-8.0)
--- OUTSIDE RECORDS SUMMARY | 2025-02-28 21:30 | XMS_ITS | Encounter Summary ---
Author Organization [facility] Address [address] [place] [address] Phone Care Team Providers Care Medical Coding Auditor Name Role Phone Annmarie Ba MD Primary Care Provider Unavailabl e Encounter Details Date Type Department Care Team (Late st Contact Info) Description 10/19/2022 Office Communication [facility] [address] [place] [address] Edith Garcia, RN [address] [place] [address] Social History Tobacco Use Types [...] on filedocumented in this encounter Care Teams Medical Coding Auditor Relationship Specialty Start Date End Date Annmarie Ba MD PCP - General 10/03/20 06/22/24 documented as of this encounter
[2025-02-28 21:34] LABS: Troponin-I High Sensitivity 38.7 ng/L (<3.5-35.0)
[2025-02-28] MEDS: Butalb/Acetamin/Caff 50/325/40 TABLET 1 TAB PO (22:05)
[2025-02-28 22:48] VITALS: BP 138/93; PULSE 111; RESP 24; O2SAT 92
[2025-02-28 23:43] VITALS: BP 182/112
[2025-02-28] MEDS: levETIRAcetam 500 MG TABLET PO (23:43)
[2025-02-28] MEDS: Losartan Potassium 50 MG TABLET 100 MG PO (23:43)
[2025-02-28 23:44] VITALS: PULSE 81
[2025-02-28] MEDS: carvediloL 25 MG TABLET PO (23:44)
--- NOTE | 2025-02-28 23:58 | PM.IMHP ---
History of Present Illness Date of Service: 02/28/25 Chief Complaint: Syncope 29-year-old male with a past medical history of HTN, anemia, ESRD on hemodialysis, seizure disorder, chronic back pain; recent admission to the hospital for nearsyncope presented to the hospital today with a chief complaint of syncope. Reportedly patient stood up from his bed and suddenly fainted and fell onto the floor; episode was brief. Patient has postictal confusion. Patient's mom witnessed the episode and mentioned patient did not have any seizure-like activity. Subsequently brought him to the hospital for further evaluation. Reports that last hemodialysis session was on Saturday. Denies any fever chills cough or sputum production. Denies any GI or symptoms. Denies any headaches or blurry visions. Review of all other systems is negative except mentioned above ER course: Per ER team, patient's EKG was nonischemic, troponins were negative; creatinine elevated; blood pressure elevated; patient back to his baseline; given seizures in the differentials-patient was given a dose of Keppra. [facility] Medical History (Updated 03/01/25 @ 00:02 by Braxton Rivas MD) Syncope ESRD needing dialysis Drug abuse Normocytic anemia CKD (chronic kidney disease) Anemia HTN (hypertension) Seizure disorder ESRD on dialysis End stage chronic kidney disease Bilateral lower extremity pain Back pain Family History Sister Substance use disorder Social History Household Members: Family Household Members Other:: mom, step dad, sister and nephew Housing: House Do you presently have visiting nurse or other home services: No Alcohol intake: never Comment: Pt refusing bed alarm Patient Tobacco Use Status: Never used Tobacco Smoked in Last 30 Days: No e-Cigarette/Vaping Use: Never Used Use of substances other than those prescribed or required for medical reasons: Yes Substance Use Type: Marijuana Advance Directives: Yes Advance Directives on File: Yes Advance Directives Date on File: 12/11/23 Do you have a plan to hurt others: No Plan service: No Cognitive needs: No Hearing needs: No Vision needs: No Meds Allergies Allergy/AdvReac Type Severity Reaction Status Date / Time ceftriaxone AdvReac Nausea and Verified 02/28/25 20:02 Vomiting lorazepam [From Ativan] AdvReac Shakiness Verified 02/28/25 20:02 metoclopramide [From Reglan] AdvReac Nausea Verified 02/28/25 20:02 Active Medications: Current Medications Acetaminophen (Acetaminophen 325 Mg Tablet) 650 mg PO Q6H PRN PRN Reason: Pain, Mild 1-3,fever,headache Calcium Carbonate (Calcium Carbonate 750 Mg Tab.Chew) 750 mg PO Q4H PRN PRN Reason: Heartburn Magnesium Hydroxide (Milk Of Magnesia 30 Ml Oral.Susp) 30 ml PO DAILY PRN PRN Reason: Constipation Melatonin (Melatonin 3 Mg Tablet) 6 mg PO BEDTIME PRN PRN Reason: Insomnia Sodium Chloride (0.9 % Sodium Chloride Flush 3 Ml Syringe) [facility]ations ?Medication ?Instructions ?Recorded ?Confirmed ?Last Taken ?Type atorvastatin 20 mg tablet 20 mg PO BEDTIME 03/13/23 02/26/25 10/19/24 History clonidine 0.3 mg/24 hr weekly 1 patch topical FR@0900 03/13/23 02/26/25 10/16/24 History transdermal patch gabapentin 100 mg capsule 200 mg PO BID 03/13/23 02/26/25 10/19/24 History ketoconazole 2 % topical cream 1 appl topical DAILY PRN Rash 03/13/23 02/26/25 Unknown History sennosides 8.6 mg-docusate sodium 2 tab PO BID 03/13/23 02/26/25 10/19/24 History 50 mg tablet (Senna Plus) sertraline 50 mg tablet 50 mg PO DAILY 03/13/23 02/26/25 10/19/24 History sevelamer carbonate 800 mg tablet 2,400 mg PO TIDWMEAL 03/13/23 02/26/25 12/09/23 History levetiracetam 500 mg tablet 500 mg PO BID 06/14/23 02/26/25 10/16/24 History levetiracetam 500 mg tablet 500 mg PO DAILY PRN AFTER DIALYSIS 02/24/24 02/26/25 10/19/24 History ON DIALYSIS DAYS losartan 100 mg tablet 100 mg PO BID 02/24/24 02/26/25 10/19/24 History nitroglycerin 0.4 mg sublingual 0.4 mg sublingual Q5M PRN Chest 02/24/24 02/26/25 Unknown History tablet Pain alprazolam 0.5 mg tablet,extended 0.5 mg PO BID PRN Anxiety 02/26/25 02/26/25 Unknown History release 24 hr buspirone 15 mg tablet 15 mg PO BID 02/26/25 02/26/25 Unknown History carvedilol 12.5 mg tablet 25 mg PO BID 02/26/25 02/26/25 Unknown History hydrocortisone 2.5 % topical cream 1 appl topical DAILY PRN Rash 02/26/25 02/26/25 Unknown History trazodone 50 mg tablet 50 mg PO BEDTIME PRN Sleep 02/26/25 02/26/25 Unknown History vitamin B complex and vitamin C 1 cap PO BEDTIME 02/26/25 02/26/25 Unknown History no.20-folic acid 1 mg capsule (Triphrocaps) Physical Exam Vital Signs and Narrative: Vital Signs: Last Vital Signs Temp 97.8 F 02/28/25 19:49 Pulse 81 02/28/25 23:44 Resp 24 H 02/28/25 22:48 BP 182/112 H 02/28/25 23:43 Pulse Ox 92 02/28/25 22:48 O2 Del Method Room Air 02/28/25 22:48 BMI result Body Mass Index 31.7 Gen: Appears be in no acute distress HEENT: NCAT, Moist mucosa. Pulmonary: Vesicular breath sounds, fair air entry CVS: Normal S1-S2 Abdomen: BS+, Soft, Nontender Extremities: Warm well perfused Neuro: Alert and awake. Results Labs 02/28/25 20:50 02/28/25 20:50 Labs: Laboratory Results - last 24 hr 02/28/25 20:50 Anion Gap 21 H Estim Creat Clear Calc 11.2 Estimated GFR 5 Random Glucose 93 Calcium 8.9 D Magnesium 1.8 Total Bilirubin 0.8 AST 15 ALT 7 Alkaline Phosphatase 185 H Troponin I High Sens 38.7 H Total Protein 6.4 L Albumin 4.4 Assessment and Plan (1) Syncope: Qualifiers: Syncope type: unspecified Qualified Code(s): R55 - Syncope and collapse Status: Acute Plan 29-year-old male with a past medical history of HTN, anemia, ESRD on hemodialysis, seizure disorder, chronic back pain; recent admission to the hospital for syncope presented to the hospital today with a chief complaint of syncope. Recurrent syncope: Seizure:(typical seizure episode: Patient patient had sudden falls with loss of consciousness. No tonic-clonic movements. Brief postictal state.) Patient got up from the bed, after he stood up he suddenly fell forward hitting his head. Has abrasion on his forehead. Patient did not resist the fall. He had multiple episodes fevers ago of similar kind and after extensive testing at the [facility] and he was noted to have seizures on the EEG and started on Keppra-500 mg b.i.d. which he has been compliant. Takes extra dose of Keppra on dialysis days. Did not take Keppra on last Saturday when he has dialysis done. Patient reports since he was started on the Keppra he not have any seizures in the recent time. Patient was given a dose of Keppra empirically in the ER given atonic seizures in the differential. EKG showed no evidence of blocks Plan: Telemetry Echocardiogram Holter at the time of discharge Cardiology consult EEG Continue home Keppra b.i.d. Neurology consult Orthostatic vitals Fall precautions ESRD: Patient on hemodialysis Saturday. Nephrology consult. Continue home sevelamer. Hemodialysis on Saturday. Last dialysis was on Saturday as he missed her Saturday dialysis. Hypertensive urgency: Hydralazine p.r.n.. Patient on clonidine patch weekly. Continue home carvedilol. Thrombocytopenia: Chronic. Stable. Denies any signs of bleeding. Diarrhea: For more than 2 months patient has been having loose watery stools. Slightly decreased over the past couple days as he has decreased oral intake. GI follow-up recommended DVT prophylaxis: SCD boots Code status: Full code Quality Stroke Does the patient have a stroke diagnosis?: No VTE Prior VTE?: No VTE Risk Level:: Medical - moderate - high VTE Device Contraindication: Treatment Not Indicated VTE Drug Contraindication: N/A - Med Ordered
[2025-03-01] VITALS (11 sets, daily range): BP systolic 138–174; BP diastolic 81–106; PULSE 70–83; RESP 10–19; TEMP 36.3–37; O2SAT 96–98; BMI 32.6
[2025-03-01] MEDS: ondansetron HCL 4 MG/2 ML VIAL IVPUSH ×4 (00:03→23:58)
[2025-03-01] MEDS: Morphine Sulfate 4 MG/ML CARTRIDGE IVPUSH (00:03)
[2025-03-01 00:39] LABS: Basophils Percent Auto 0.2 % (0-2); Eosinophils Absolute Auto 0.1 X10*3/uL (0.0-0.4); Eosinophils Percent Auto 2.1 % (0-4); Hematocrit 26.6 % (42.0-52.0); Hemoglobin 9.6 g/dl (14.0-18.0); Imm Gran Abs Auto 0.02 X10*3/uL (0.00-0.03); Imm Gran Pct Auto 0.4 % (0.0-0.4); Lymphocytes Absolute Auto 1.4 X10*3/uL (1.2-4.9); Lymphocytes Percent Auto 24.2 % (20-40); Mean Corpuscular HGB Conc 36.1 g/dl (31.0-36.0); Mean Corpuscular Hemoglobin 32.4 pg (27.0-33.0); Mean Corpuscular Volume 89.9 fL (80.0-98.0); Mean Platelet Volume 9.8 fL (9.4-12.4); Monocytes Absolute Auto 0.7 X10*3/uL (0.1-1.2); Monocytes Percent Auto 12.7 % (2-11); Neutrophils Absolute Auto 3.4 x10*3/uL (2.0-8.3); Neutrophils Percent Auto 60.4 % (45-73); Platelet Count 88 X10*3/uL (160-400); Red Blood Count 2.96 X10*6/uL (4.60-5.80); Red Cell Distribution Width 11.7 % (11.0-16.0); White Blood Count 5.7 X10*3/uL (4.8-10.8)
[2025-03-01 00:40] LABS: MANUAL DIFF FLAG NO
[2025-03-01] MEDS: Acetaminophen 325 MG TABLET 650 MG PO (02:37)
[2025-03-01] MEDS: HYDROmorphone HCl 0.5 MG/0.5 ML SYRINGE IVPUSH (05:06)
[2025-03-01 05:12] LABS: MANUAL DIFF FLAG NO
[2025-03-01 05:15] LABS: Basophils Percent Auto 0.4 % (0-2); Eosinophils Absolute Auto 0.1 X10*3/uL (0.0-0.4); Eosinophils Percent Auto 2.2 % (0-4); Hematocrit 26.9 % (42.0-52.0); Hemoglobin 9.4 g/dl (14.0-18.0); Imm Gran Abs Auto 0.02 X10*3/uL (0.00-0.03); Imm Gran Pct Auto 0.4 % (0.0-0.4); Lymphocytes Absolute Auto 1.6 X10*3/uL (1.2-4.9); Lymphocytes Percent Auto 28.2 % (20-40); Mean Corpuscular HGB Conc 34.9 g/dl (31.0-36.0); Mean Corpuscular Volume 91.5 fL (80.0-98.0); Mean Platelet Volume 10.8 fL (9.4-12.4); Monocytes Absolute Auto 0.7 X10*3/uL (0.1-1.2); Monocytes Percent Auto 12.2 % (2-11); Neutrophils Absolute Auto 3.1 x10*3/uL (2.0-8.3); Neutrophils Percent Auto 56.6 % (45-73); Platelet Count 92 X10*3/uL (160-400); Red Blood Count 2.94 X10*6/uL (4.60-5.80); Red Cell Distribution Width 11.8 % (11.0-16.0); White Blood Count 5.5 X10*3/uL (4.8-10.8)
[2025-03-01 05:35] LABS: Alanine Aminotransferase 9 U/L (0-40); Albumin Level 4.1 g/dL (3.5-5.0); Alkaline Phosphatase 170 U/L (39-117); Anion Gap 18 (12-20); Aspartate Amino Transferase 14 U/L (5-37); Bilirubin Total 0.6 mg/dL (0.0-1.0); Blood Urea Nitrogen 43 mg/dL (9-16); Calcium 8.5 mg/dL (8.4-10.2); Carbon Dioxide 29 mmol/L (22-29); Chloride 98 mmol/L (96-108); Creatinine Clr Calc Pharmacy 10.4; Estimated Glomerular Filt Rate 5; Glucose Random 99 mg/dL (60-115); Potassium 3.6 mmol/L (3.3-5.1); Sodium 141 mmol/L (135-145); Total Protein 6.1 g/dL (6.5-8.0)
--- NOTE | 2025-03-01 07:00 | CA_ITS ---
Transthoracic Echocardiogram Patient (Last, First, Middle): Gary Burns P Gender: Male Date of : 1995 Age: 29 Procedure Date: 03/01/2025 Procedure Type: Transthoracic Echocardiogram Location: ER Height: 182.88 cm Weight: 105.69 kg BSA: 2.27 m2 Heart Rate: 63 bpm BP: 168 / 106 mmHg Online Editor: HENOK Referring MD: Braxton Rivas MD Clothing Sales Assistant: Prasanth Mg MD Symptoms: syncope Study Quality: Adequate ECG Rhythm: Sinus Conclusions: - 1. Normal LV ejection fraction 55-60% with mild concentric left ventricular hypertrophy and moderate to severe asymmetric basal posterior wall hypertrophy 2. Mildly dilated left atrium 3. Normal cardiac valvular Dopplers 4. Normal RV systolic pressure 5. Small pericardial effusion near the left ventricle Findings Left Ventricle Normal left ventricular size and systolic function. There is mildly increased left ventricular wall thickness. The visually estimated ejection fraction is between 55-60%. There is severe posterior asymmetric hypertrophy. Right Ventricle Mildly increased right ventricular cavity size. There is normal right ventricular systolic function. Atria The left atrium is mildly dilated. There is no evidence of interatrial shunt. The right atrium is likely dilated. Aortic Valve Normal aortic valve structure and function. There is no aortic valve stenosis. There is no aortic valve regurgitation. Mitral Valve Normal mitral valve structure and function. There is trace mitral valve regurgitation. There is no mitral valve stenosis. Pulmonic Valve The pulmonic valve is likely normal. Tricuspid Valve Normal tricuspid valve structure. There is mild tricuspid valve regurgitation. The right ventricular systolic pressure is normal. The right ventricular systolic pressure is 16 mmHg. Normal right atrial pressure. There is no evidence of pulmonary hypertension. Great Vessels All visible segments of the aorta are normal in size. The pulmonary artery was not well visualized. There is no dilatation of the ascending aorta measuring 3.40 cm. Venous The inferior vena cava is normal in size and collapses greater than 50% with inspiration. Pericardium/Pleural There is a small loculated pericardial effusion overlying the left ventricle. Measurements 2D Linear Measurements IVSd: 1.17 0.6-0.9/0.6-1.0 cm LVIDd: 5.92 3.9-5.3/4.2-5.9 cm LVIDd Index: 2.61 2.4-3.2/2.2-3.1 cm/m2 LVIDs: 3.99 2.0-3.6 cm LVPWd: 1.65 0.7-1.1 cm LA Diam: 4.30 2.7-3.8/3.0-4.0 cm LAIDs Index: 1.89 1.5-2.3 cm/m2 LV Mass: 478.56 67-162/88-224 g LV Mass Index: 210.82 43-95/49-115 g/m2 LVOT Diam: 2.50 3.0+(-)1.3 cm 2D Systolic Function EF 4C: 54.20 >55% EF 2C: 64.40 >55% EF BiP: 59.60 >55% Mitral Valve MV Pk E: 0.90 MV PK A: 0.81 MV Decel Time: 265.00 E/A: 1.10 E'Lateral: 7.29 E'Medial: 6.42 E/E' Med: 14.10 E/E' Lat: 12.40 PHT: 78.00 MVA PHT: 2.82 Decel Wilkinson: 3.41 Aortic Valve AoV Pk Champ: 1.46 AoV Mn Champ: 1.02 AoV VTI: 0.32 AoV Pk Grad: 9.00 Aov Mn Grad: 5.00 DANILO Cont.VTI: 4.20 LVOT LVOT Pk Champ: 1.22 LVOT Mn Champ: 0.89 LVOT VTI: 0.27 LVOT Pk Grad: 6.00 LVOT Mn Grad: 4.00 LVOT Diam: 2.50 LVOT Area: 4.91 Diastolic Function MV Pk E: 0.90 MV Pk A: 0.81 E/A: 1.10 E'Medial: 6.42 E/E' Med: 14.10 E' Laterial: 7.29 E/E' Lat: 12.40 Right Ventricle TAPSE (mm): 22.40 TVS' Champ: 10.40 Tricuspid Valve TR Pk Champ: 1.80 TR Pk Grad: 13.00 RA Press: 3.00 RVSP: 16.00 Great Vessels Aorta Sinus of Valsalva: 3.60 2.0-3.5 cm Ao Asc: 3.40 2.1-3.4 cm Ao Arch: 3.10 Pulmonary Valve PV Pk Champ: 1.02 Peak PV Grad: 4.00 Updated in Other Vendor System with Status of Final Prasanth Mg MD electronically signed on 03/01/2025 12:32:43 PM with status of Final
--- NOTE | 2025-03-01 07:36 | PC.NURSE ---
Assumed care of pt approx 0700, resting comfortably in bed with no apparent s/s of distress. A/O x 4. Pt declined breakfast.
--- NOTE | 2025-03-01 09:25 | PHA.MEDREC ---
Addendum entered by Eugene Cabrera [facility] 03/01/25 11:12: Med rec was reviewed by [facility]. Notified Dr. Rios in the discrepancy of how patient takes alprazolam ER 0.5 mg bid prn vs daily and Dr. Rios wants to keep it as bid prn . Addendum entered by Jeff Quevedo 03/01/25 10:20: Found Pt own Alprazolam 0.5mg ER bottle in pharmacy safe and directions on there read take 1 tab daily and what pt had confirmed before with me was Alrazolam 0.5mg 1 BID PRN anxiety ; I spoke again with the pt and he confirmed the Alprazolam 0.5mg ER tabs but stated he takes them BID as needed for anxiety. Addendum entered by Jeff Quevedo 03/01/25 09:58: Called [facility] about the Sevelamer Carbonate 800mg tab and they stated the pt has not gotten that medication since 10/2023 for a 90 day supply and stated the pt had 3 refills left but the script is now . Original Note: Pharmacy Consult ? Medication Reconciliation Pharmacy has completed the medication reconciliation. Spoke with pt and he was able to confirm his medications. Pt just here 02/26-02/27 and stated he came back in last night (02/28) and was able to take his morning medications before coming back.
--- NOTE | 2025-03-01 09:37 | P.CONCA_ITS ---
History of Present Illness History of Present Illness Date of Service: 03/01/25 Requesting physician: Aftab Rios Consult reason: other (Loss of consciousness) Chief complaint: syncope Narrative: I was consulted to see Gary in cardiology consultation today because of loss of consciousness. 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 Patient has prior multiple episodes of loss of consciousness and has been diagnose with seizure disorder has been told that this of focal seizures and sees Dr. Damon. He has been on Keppra for the same. He said yesterday the whole day on Saturday he was not feeling well. He is in bed and he had some anxiety. He said he gets episodes of anxiety without any clear apparent triggers. He said he was his room and got out of bed to walk out, his mother was sitting right then watched him fall face forward. He did not brace himself. He hit his head. Said this entire episode was witnessed by his mom and then he had some post loss of consciousness confusion. There were no seizure-like activities noted. There were no bowel bladder incontinence. He said it took some time for his parents to get him oriented and get him in bed. He was then brought to the emergency room. Since being in the emergency room he has been in sinus rhythm. He has been noted to have significantly elevated blood pressure. His orthostatics done this morning are within normal limits. He does not recall the entire event. In the past said with other events he would no that he had fainted but this event he does not recall. He said he has a headache and feels nauseous. He is a little wound in the center. He said he hit his head seems like pretty hard on the floor. He has no other injuries. He has no prior cardiac history. He says he takes all his medications religiously. He said he has been hydrating himself adequately. He has not noticed any blood loss. His troponins are minimally elevated but flat. His EKG is suggestive of LVH with repolarization abnormality Review of Systems 2 Constitutional: Constitutional: Denies body ache(s), Denies chills, Denies fever(s), Reports headache(s) and Reports malaise Eyes: Eyes: Reports no additional eye complaints ENT: Reports system reviewed and no additional complaints, except as documented and Reports headache(s) Cardiovascular: Cardiovascular: Denies chest pain, Denies leg edema, Reports Loss of Consciousness, Denies palpitations, Denies dyspnea and Denies dyspnea on exertion Respiratory: Respiratory: Denies no additional respiratory complaints, Denies dyspnea and Denies dyspnea on exertion Gastrointestinal: Gastrointestinal: Reports nausea Genitourinary: Genitourinary: Reports no additional male genitourinary complaints Neurologic: Reports headache(s) Psychiatric: Psychiatric: Reports no additional psychiatric complaints Endocrine: Endocrine: Denies palpitations PMFSH Past Medical History Medical History Syncope ESRD needing dialysis Drug abuse Normocytic anemia CKD (chronic kidney disease) Anemia HTN (hypertension) Seizure disorder ESRD on dialysis End stage chronic kidney disease Bilateral lower extremity pain Back pain Family History Family History Sister Substance use disorder Social History Social History Household Members: Family Household Members Other:: mom, step dad, sister and nephew Housing: House Do you presently have visiting nurse or other home services: No Alcohol intake: never Comment: Pt refusing bed alarm Patient Tobacco Use Status: Never used Tobacco Smoked in Last 30 Days: No e-Cigarette/Vaping Use: Never Used Use of substances other than those prescribed or required for medical reasons: Yes Substance Use Type: Marijuana Advance Directives: Yes Advance Directives on File: Yes Advance Directives Date on File: 12/11/23 Do you have a plan to hurt others: No Plan service: No Cognitive needs: No Hearing needs: No Vision needs: No Meds Allergies Allergy/AdvReac Type Severity Reaction Status Date / Time ceftriaxone AdvReac Nausea and Verified 02/28/25 20:02 Vomiting lorazepam [From Ativan] AdvReac Shakiness Verified 02/28/25 20:02 metoclopramide [From Reglan] AdvReac Nausea Verified 02/28/25 20:02 Active Medications: Current Medications Acetaminophen (Acetaminophen 325 Mg Tablet) 650 mg PO Q6H PRN PRN Reason: Pain, Mild 1-3,fever,headache Last Admin: 03/01/25 02:37 Dose: 650 mg Atorvastatin Calcium (Atorvastatin Calcium 20 Mg Tablet) 20 mg PO DAILY [facility] Buspirone HCl (Buspirone Hcl 5 Mg Tablet) 15 mg PO BID [facility] Calcium Carbonate (Calcium Carbonate 750 Mg Tab.Chew) 750 mg PO Q4H PRN PRN Reason: Heartburn Carvedilol (Carvedilol 25 Mg Tablet) 25 mg PO BID [facility]; Protocol Carvedilol (Carvedilol 25 Mg Tablet) 25 mg PO BID [facility]; Protocol Gabapentin (Gabapentin 100 Mg Capsule) 200 mg PO BID [facility] Hydralazine HCl (Hydralazine Hcl 20 Mg/Ml Vial) 10 mg IVPUSH Q6H PRN; Protocol PRN Reason: SBP > 160 Levetiracetam (Levetiracetam 500 Mg Tablet) 500 mg PO BID [facility] Levetiracetam (Levetiracetam 500 Mg Tablet) 500 mg PO MOWEFR [facility] Losartan Potassium (Losartan Potassium 50 Mg Tablet) 100 mg PO BID [facility]; Protocol Magnesium Hydroxide (Milk Of Magnesia 30 Ml Oral.Susp) 30 ml PO DAILY PRN PRN Reason: Constipation Melatonin (Melatonin 3 Mg Tablet) 6 mg PO BEDTIME PRN PRN Reason: Insomnia Non-Formulary Medication (Alprazolam) 0.5 mg PO BID PRN PRN Reason: Anxiety Ondansetron HCl (Ondansetron Hcl 4 Mg/2 Ml Vial) 4 mg IVPUSH Q6H PRN PRN Reason: Nausea Oxycodone HCl (Oxycodone Hcl Immed Release 5 Mg Tablet) 5 mg PO Q6H PRN PRN Reason: Pain, Severe (Pain Scale 7-10) Sertraline HCl (Sertraline Hcl 50 Mg Tablet) 50 mg PO DAILY [facility] Sevelamer Carbonate (Sevelamer Carbonate Tablet 800 Mg Tablet) 2,400 mg PO TIDWMEAL [facility] Sodium Chloride (0.9 % Sodium Chloride Flush 3 Ml Syringe) [address] [facility] Last Admin: 03/01/25 09:22 Dose: Not Given Trazodone HCl (Trazodone Hcl 50 Mg Tablet) 50 mg PO BEDTIME PRN PRN Reason: Sleep Home Medications ?Medication ?Instructions ?Recorded ?Confirmed ?Last Taken ?Type atorvastatin 20 mg tablet 20 mg PO DAILY 03/13/23 03/01/25 02/28/25 History clonidine 0.3 mg/24 hr weekly 1 patch topical FR@0900 03/13/23 03/01/25 02/26/25 History transdermal patch gabapentin 100 mg capsule 200 mg PO BID 03/13/23 03/01/25 02/28/25 History ketoconazole 2 % topical cream 1 appl topical DAILY PRN Rash 03/13/23 03/01/25 Unknown History sennosides 8.6 mg-docusate sodium 2 tab PO BID 03/13/23 03/01/25 02/28/25 History 50 mg tablet (Senna Plus) sertraline 50 mg tablet 50 mg PO DAILY 03/13/23 03/01/25 02/28/25 History sevelamer carbonate 800 mg tablet 2,400 mg PO TIDWMEAL 03/13/23 03/01/25 02/28/25 History levetiracetam 500 mg tablet 500 mg PO BID 06/14/23 03/01/25 02/28/25 History levetiracetam 500 mg tablet 500 mg PO MOWEFR AFTER DIALYSIS ON 02/24/24 03/01/25 10/19/24 History DIALYSIS DAYS losartan 100 mg tablet 100 mg PO BID 02/24/24 03/01/25 02/28/25 History nitroglycerin 0.4 mg sublingual 0.4 mg sublingual Q5M PRN Chest 02/24/24 03/01/25 Unknown History tablet Pain alprazolam 0.5 mg tablet,extended 0.5 mg PO BID PRN Anxiety 02/26/25 03/01/25 Unknown History release 24 hr buspirone 15 mg tablet 15 mg PO BID 02/26/25 03/01/25 02/28/25 History carvedilol 12.5 mg tablet 25 mg PO BID 02/26/25 03/01/25 02/28/25 History hydrocortisone 2.5 % topical cream 1 appl topical DAILY PRN Rash 02/26/25 03/01/25 Unknown History trazodone 50 mg tablet 50 mg PO BEDTIME PRN Sleep 02/26/25 03/01/25 02/28/25 History vitamin B complex and vitamin C 1 cap PO BEDTIME 03/01/25 03/01/25 02/27/25 History no.20-folic acid 1 mg capsule (Triphrocaps) Physical Exam 2 Vital Signs: Vital Signs: Last Vital Signs Temp 98.2 F 03/01/25 07:32 Pulse 83 03/01/25 07:37 Resp 18 03/01/25 07:32 BP 154/104 H 03/01/25 07:37 Pulse Ox 96 03/01/25 07:32 O2 Del Method Room Air 03/01/25 07:32 BMI result Body Mass Index 31.7 Const: General: cooperative, comfortable, no acute distress, alert and awake Nutritional Appearance: obese Orientation/consciousness: patient oriented x3 HEENT: Head: Yes normocephalic and Yes atraumatic Neck: Neck: Yes trachea midline, Yes supple and Yes no JVD Resp: Effort & Inspection: normal respiratory effort Auscultation: clear to auscultation bilaterally Cardio: Jugular venous distension: no JVD Palpation: normal PMI Rate: r egular rate Rhythm: regular rhythm Heart sounds: S1 normal heart sound present, S2 normal heart sound present, no click, no gallops and no murmurs GI: Auscultation: normal bowel sounds Skin: General skin exam: no rashes or lesions noted Neuro: General: patient oriented x3 and no focal motor deficits Extrem: General: Yes no clubbing, cyanosis or edema Psych: Affect: Anxious affect present and Blunted affect present Objective Labs and Meds 03/01/25 04:42 03/01/25 04:42 Lab results: Laboratory Results - last 24 hr 02/28/25 03/01/25 03/01/25 20:50 00:34 04:42 WBC 5.7 5.5 RBC 2.96 L 2.94 L Hgb 9.6 L 9.4 L Hct 26.6 L 26.9 L MCV 89.9 91.5 MCH 32.4 32.0 MCHC 36.1 H 34.9 RDW 11.7 11.8 Plt Count 88 L 92 L MPV 9.8 10.8 Immature Gran % (Auto) 0.4 0.4 Neut % (Auto) 60.4 56.6 Lymph % (Auto) 24.2 28.2 Glascock % (Auto) 12.7 H 12.2 H Eos % (Auto) 2.1 2.2 Baso % (Auto) 0.2 0.4 Lymph # (Auto) 1.4 1.6 [place]ock # (Auto) 0.7 0.7 Eos # (Auto) 0.1 0.1 Baso # (Auto) 0.0 0.0 Abs Immat Gran (auto) 0.02 0.02 Absolute Neuts (auto) 3.4 3.1 Absolute Nucleated RBC 0.000 0.000 Nucleated RBC % (auto) 0.0 0.0 Sodium 142 141 Potassium 3.7 3.6 Chloride 98 98 Carbon Dioxide 27 29 Anion Gap 21 H 18 BUN 40 H 43 H Creatinine 12.09 H* 13.00 H* Estim Creat Clear Calc 11.2 10.4 Estimated GFR 5 5 Random Glucose 93 99 Calcium 8.9 D 8.5 Magnesium 1.8 Total Bilirubin 0.8 0.6 AST 15 14 ALT 7 9 Alkaline Phosphatase 185 H 170 H Troponin I High Sens 38.7 H Total Protein 6.4 L 6.1 L Albumin 4.4 4.1 EKG shows normal sinus rhythm with suggestive of LVH with repolarization abnormality Assessment and Plan (1) Syncope: Qualifiers: Syncope type: unspecified Qualified Code(s): R55 - Syncope and collapse Status: Acute Patient present with a loss of consciousness episode which she could not control and does not remember. He did fall and had injury. This is concerning. Historically appears to be possibly orthostatic in nature although orthostatic vital signs this morning are within normal limits. He is at baseline significantly hypertensive. He is on antihypertensive therapy. He says during dialysis session he does not have any significant drop in his blood pressure. The entire episode is unclear. I will continue full disclosure cardiac monitoring for 24 more hours. Also suggest an echocardiogram to evaluate for LV systolic and diastolic function to evaluate for hypertensive heart disease. Question seizure episode, he is on Keppra therapy. Advise neurology consult. If no obvious etiology is found he will need a long-term monitoring his outpatient possible ischemic workup given that he has abnormal EKG as well as longstanding end-stage renal disease which makes him prone to develop premature atherosclerosis. Will sign of the case and follow with you as need be. Thank you for allowing me to partake in his care Procedures Date of Service Date of Service: 03/01/25
--- NOTE | 2025-03-01 10:08 | PM.NEUROCN ---
History of Present Illness Data of Consult Service Date: 03/01/25 Primary Care Provider: Unknown Physician HPI Reason for consult: Seizure disorder 29 years old man who was born premature at 28 weeks of gestation in his mother was told that he might have a small brain bleed, his brain scan revealing right frontal hyperdense lesion suggestive of an AVM or venous angioma, history of glomerular nephritis, hypertension, end-stage renal disease on dialysis, and also history of substance abuse including IV heroin and marijuana was treated for seizure disorder. He came to hospital after an episode of passing out. He said that he did not know what happened. Apparently he passed out for few sec or briefly and was later was noted to be confused. He said that he was taking his medicines on regular basis. He was prescribed levetiracetam 500 mg twice a day. Review of Systems Review of Systems: No recent cold or flu-like illness PMFSH Past Medical History Medical History Syncope ESRD needing dialysis Drug abuse Normocytic anemia CKD (chronic kidney disease) Anemia HTN (hypertension) Seizure disorder ESRD on dialysis End stage chronic kidney disease Bilateral lower extremity pain Back pain Family History Family History Sister Substance use disorder Social History Social History Household Members: Family Household Members Other:: mom, step dad, sister and nephew Housing: House Do you presently have visiting nurse or other home services: No Alcohol intake: never Comment: Pt refusing bed alarm Patient Tobacco Use Status: Never used Tobacco Smoked in Last 30 Days: No e-Cigarette/Vaping Use: Never Used Use of substances other than those prescribed or required for medical reasons: Yes Substance Use Type: Marijuana Advance Directives: Yes Advance Directives on File: Yes Advance Directives Date on File: 12/11/23 Do you have a plan to hurt others: No Plan service: No Cognitive needs: No Hearing needs: No Vision needs: No Meds Allergies Allergy/AdvReac Type Severity Reaction Status Date / Time ceftriaxone AdvReac Nausea and Verified 02/28/25 20:02 Vomiting lorazepam [From Ativan] AdvReac Shakiness Verified 02/28/25 20:02 metoclopramide [From Reglan] AdvReac Nausea Verified 02/28/25 20:02 Active Medications: Current Medications Acetaminophen (Acetaminophen 325 Mg Tablet) 650 mg PO Q6H PRN PRN Reason: Pain, Mild 1-3,fever,headache Last Admin: 03/01/25 02:37 Dose: 650 mg Atorvastatin Calcium (Atorvastatin Calcium 20 Mg Tablet) 20 mg PO DAILY [facility] Buspirone HCl (Buspirone Hcl 5 Mg Tablet) 15 mg PO BID [facility] Calcium Carbonate (Calcium Carbonate 750 Mg Tab.Chew) 750 mg PO Q4H PRN PRN Reason: Heartburn Carvedilol (Carvedilol 25 Mg Tablet) 25 mg PO BID [facility]; Protocol Gabapentin (Gabapentin 100 Mg Capsule) 200 mg PO BID [facility] Hydralazine HCl (Hydralazine Hcl 20 Mg/Ml Vial) 10 mg IVPUSH Q6H PRN; Protocol PRN Reason: SBP > 160 Levetiracetam (Levetiracetam 500 Mg Tablet) 500 mg PO BID [facility] Levetiracetam (Levetiracetam 500 Mg Tablet) 500 mg PO MOWEFR [facility] Losartan Potassium (Losartan Potassium 50 Mg Tablet) 100 mg PO BID [facility]; Protocol Magnesium Hydroxide (Milk Of Magnesia 30 Ml Oral.Susp) 30 ml PO DAILY PRN PRN Reason: Constipation Melatonin (Melatonin 3 Mg Tablet) 6 mg PO BEDTIME PRN PRN Reason: Insomnia Non-Formulary Medication (Alprazolam) 0.5 mg PO BID PRN PRN Reason: Anxiety Ondansetron HCl (Ondansetron Hcl 4 Mg/2 Ml Vial) 4 mg IVPUSH Q6H PRN PRN Reason: Nausea Oxycodone HCl (Oxycodone Hcl Immed Release 5 Mg Tablet) 5 mg PO Q6H PRN PRN Reason: Pain, Severe (Pain Scale 7-10) Sertraline HCl (Sertraline Hcl 50 Mg Tablet) 50 mg PO DAILY [facility] Sevelamer Carbonate (Sevelamer Carbonate Tablet 800 Mg Tablet) 2,400 mg PO TIDWM [facility] Sodium Chloride (0.9 % Sodium Chloride Flush 3 Ml Syringe) 3 ml IVFLUSH QSHIFT [facility] Last Admin: 03/01/25 09:22 Dose: Not Given Trazodone HCl (Trazodone Hcl 50 Mg Tablet) 50 mg PO BEDTIME PRN PRN Reason: Sleep Home Medications ?Medication ?Instructions ?Recorded ?Confirmed ?Last Taken ?Type atorvastatin 20 mg tablet 20 mg PO DAILY 03/13/23 03/01/25 02/28/25 History clonidine 0.3 mg/24 hr weekly 1 patch topical FR@0900 03/13/23 03/01/25 02/26/25 History transdermal patch gabapentin 100 mg capsule 200 mg PO BID 03/13/23 03/01/25 02/28/25 History ketoconazole 2 % topical cream 1 appl topical DAILY PRN Rash 03/13/23 03/01/25 Unknown History sennosides 8.6 mg-docusate sodium 2 tab PO BID PRN Constipation 03/13/23 03/01/25 02/28/25 History 50 mg tablet (Senna Plus) sertraline 50 mg tablet 50 mg PO DAILY 03/13/23 03/01/25 02/28/25 History sevelamer carbonate 800 mg tablet 2,400 mg PO TIDWMEAL 03/13/23 03/01/25 02/28/25 History levetiracetam 500 mg tablet 500 mg PO BID 06/14/23 03/01/25 02/28/25 History levetiracetam 500 mg tablet 500 mg PO MOWEFR AFTER DIALYSIS ON 02/24/24 03/01/25 10/19/24 History DIALYSIS DAYS losartan 100 mg tablet 100 mg PO BID 02/24/24 03/01/25 02/28/25 History nitroglycerin 0.4 mg sublingual 0.4 mg sublingual Q5M PRN Chest 02/24/24 03/01/25 Unknown History tablet Pain alprazolam 0.5 mg tablet,extended 0.5 mg PO BID PRN Anxiety 02/26/25 03/01/25 Unknown History release 24 hr buspirone 15 mg tablet 15 mg PO BID 02/26/25 03/01/25 02/28/25 History carvedilol 12.5 mg tablet 25 mg PO BID 02/26/25 03/01/25 02/28/25 History hydrocortisone 2.5 % topical cream 1 appl topical DAILY PRN Rash 02/26/25 03/01/25 Unknown History trazodone 50 mg tablet 50 mg PO BEDTIME PRN Sleep 02/26/25 03/01/25 02/28/25 History vitamin B complex and vitamin C 1 cap PO BEDTIME 03/01/25 03/01/25 02/27/25 History no.20-folic acid 1 mg capsule (Triphrocaps) Physical Exam Vital Signs: Vital Signs: Last Vital Signs Temp 98.2 F 03/01/25 07:32 Pulse 83 03/01/25 07:37 Resp 18 03/01/25 07:32 BP 154/104 H 03/01/25 07:37 Pulse Ox 96 03/01/25 07:32 O2 Del Method Room Air 03/01/25 07:32 BMI result Body Mass Index 31.7 Neuro: Other: He is alert and awake with normal spontaneity of speech fluency comprehension and flat affect. He recognize me. There was mild bruise on his forehead. Otherwise face was symmetrical. Deep tendon reflexes were absent with flexor plantars. Visual soler are full. Speech was normal. Results Labs 03/01/25 04:42 03/01/25 04:42 Labs: Short CBC 03/01/25 03/01/25 Range/Units 00:34 04:42 WBC 5.7 5.5 (4.8-10.8) X10*3/uL Hgb 9.6 L 9.4 L (14.0-18.0) g/dl Hct 26.6 L 26.9 L (42.0-52.0) % Plt Count 88 L 92 L (160-400) X10*3/uL BMP 02/28/25 03/01/25 20:50 04:42 Sodium 142 141 Potassium 3.7 3.6 Chloride 98 98 Carbon Dioxide 27 29 BUN 40 H 43 H Creatinine 12.09 H* 13.00 H* Calcium 8.9 D 8.5 Liver Function 02/28/25 03/01/25 Range/Units 20:50 04:42 Total Bilirubin 0.8 0.6 (0.0-1.0) mg/dL AST 15 14 (5-37) U/L ALT 7 9 (0-40) U/L Alkaline Phosphatase 185 H 170 H (39-117) U/L Albumin 4.4 4.1 (3.5-5.0) g/dL His head CT did not reveal any new lesion. Right frontal hyperdensity was still noted. Assessment and Plan (1) Syncope: Qualifiers: Syncope type: unspecified Qualified Code(s): R55 - Syncope and collapse Status: Acute 29 years old man with complex underlying history resulting in multiple type of risks for seizure disorder. His blood pressure was not low to suggest hypotensive or orthostatic syncope. My recommendation is to increase is levetiracetam dose to 750 mg twice a day. Otherwise he should take appropriate precautions to avoid any accidents including not driving and not swimming alone or sitting in a soaking tub alone. Procedures Date of Service Date of Service: 03/01/25
[2025-03-01] MEDS: carvediloL 25 MG TABLET PO ×2 (10:20→20:13)
[2025-03-01] MEDS: levETIRAcetam 500 MG TABLET PO ×2 (10:20→17:38)
[2025-03-01] MEDS: Sertraline HCL 50 MG TABLET PO (10:20)
[2025-03-01] MEDS: oxyCODONE HCl Immed Release 5 MG TABLET PO ×3 (10:20→23:58)
--- NOTE | 2025-03-01 10:28 | P.PNIM_ITS ---
Subjective Subjective Date of Service: 03/01/25 Interval History: hadache Physical Exam 2 Vital Signs: Vital Signs: Last Vital Signs Temp 98.2 F 03/01/25 07:32 Pulse 79 03/01/25 10:20 Resp 18 03/01/25 07:32 BP 168/106 H 03/01/25 10:20 Pulse Ox 96 03/01/25 07:32 O2 Del Method Room Air 03/01/25 07:32 BMI result Body Mass Index 31.7 Neuro: Other: He is alert and awake with normal spontaneity of speech fluency comprehension and flat affect. He recognize me. There was mild bruise on his forehead. Otherwise face was symmetrical. Deep tendon reflexes were absent with flexor plantars. Visual soler are full. Speech was normal. Objective Data Active Medications Acetaminophen (Acetaminophen 325 Mg Tablet) 650 mg PO Q6H PRN PRN Reason: Pain, Mild 1-3,fever,headache Last Admin: 03/01/25 02:37 Dose: 650 mg Documented By: SHANIA Atorvastatin Calcium (Atorvastatin Calcium 20 Mg Tablet) 20 mg PO DAILY [facility]ZEL Buspirone HCl (Buspirone Hcl 5 Mg Tablet) 15 mg PO BID [facility]EL Calcium Carbonate (Calcium Carbonate 750 Mg Tab.Chew) 750 mg PO Q4H PRN PRN Reason: Heartburn Carvedilol (Carvedilol 25 Mg Tablet) 25 mg PO BID [facility]; Protocol Last Admin: 03/01/25 10:20 Dose: 25 mg Documented By: SAUL Gabapentin (Gabapentin 100 Mg Capsule) 200 mg PO BID [facility] Hydralazine HCl (Hydralazine Hcl 20 Mg/Ml Vial) 10 mg IVPUSH Q6H PRN; Protocol PRN Reason: SBP > 160 Levetiracetam (Levetiracetam 500 Mg Tablet) 500 mg PO BID [facility] Last Admin: 03/01/25 10:20 Dose: 500 mg Documented By: SAUL Levetiracetam (Levetiracetam 500 Mg Tablet) 500 mg PO MOWEFR DENZEL Losartan Potassium (Losartan Potassium 50 Mg Tablet) 100 mg PO BID [facility]; Protocol Magnesium Hydroxide (Milk Of Magnesia 30 Ml Oral.Susp) 30 ml PO DAILY PRN PRN Reason: Constipation Melatonin (Melatonin 3 Mg Tablet) 6 mg PO BEDTIME PRN PRN Reason: Insomnia Non-Formulary Medication (Alprazolam) 0.5 mg PO BID PRN PRN Reason: Anxiety Ondansetron HCl (Ondansetron Hcl 4 Mg/2 Ml Vial) 4 mg IVPUSH Q6H PRN PRN Reason: Nausea Last Admin: 03/01/25 10:16 Dose: 4 mg Documented By: SAUL Oxycodone HCl (Oxycodone Hcl Immed Release 5 Mg Tablet) 5 mg PO Q6H PRN PRN Reason: Pain, Severe (Pain Scale 7-10) Last Admin: 03/01/25 10:20 Dose: 5 mg Documented By: SAUL Sertraline HCl (Sertraline Hcl 50 Mg Tablet) 50 mg PO DAILY [facility] Last Admin: 03/01/25 10:20 Dose: 50 mg Documented By: SAUL Sevelamer Carbonate (Sevelamer Carbonate Tablet 800 Mg Tablet) 2,400 mg PO TIDWM [facility] Sodium Chloride (0.9 % Sodium Chloride Flush 3 Ml Syringe) 3 ml IVFLUSH QSHIFT [facility] Last Admin: 03/01/25 09:22 Dose: Not Given Documented By: SAUL Non-Admin Reason: Patient Refused Trazodone HCl (Trazodone Hcl 50 Mg Tablet) 50 mg PO BEDTIME PRN PRN Reason: Sleep Labs 03/01/25 04:42 03/01/25 04:42 Labs: Laboratory Results - last 24 hr 02/28/25 03/01/25 03/01/25 20:50 00:34 04:42 MCV 89.9 91.5 MCH 32.4 32.0 MCHC 36.1 H 34.9 RDW 11.7 11.8 Plt Count 88 L 92 L MPV 9.8 10.8 Immature Gran % (Auto) 0.4 0.4 Neut % (Auto) 60.4 56.6 Lymph % (Auto) 24.2 28.2 [place] % (Auto) 12.7 H 12.2 H Eos % (Auto) 2.1 2.2 Baso % (Auto) 0.2 0.4 Lymph # (Auto) 1.4 1.6 [place] # (Auto) 0.7 0.7 Eos # (Auto) 0.1 0.1 Baso # (Auto) 0.0 0.0 Abs Immat Gran (auto) 0.02 0.02 Absolute Neuts (auto) 3.4 3.1 Absolute Nucleated RBC 0.000 0.000 Nucleated RBC % (auto) 0.0 0.0 Anion Gap 21 H 18 Estim Creat Clear Calc 11.2 10.4 Estimated GFR 5 5 Random Glucose 93 99 Calcium 8.9 D 8.5 Magnesium 1.8 Total Bilirubin 0.8 0.6 AST 15 14 ALT 7 9 Alkaline Phosphatase 185 H 170 H Troponin I High Sens 38.7 H Total Protein 6.4 L 6.1 L Albumin 4.4 4.1 Assessment and Plan (1) ESRD (end stage renal disease): Status: Acute Plan 29M PMH ESRD, hypertension, seizure disorder, presented with loss of consciousness Loss of consciousness Most consistent with seizure, neurology appreciated, Keppra increased to 750 mg b.i.d. Monitor orthostatics, telemetry, echo End-stage renal disease Hemodialysis Hypertension Losartan, clonidine, Coreg Mood disorder Sertraline, alprazolam DVT prophylaxis- hep sq full code reason for continued hospitalization:monitor tele Quality Stroke Does the patient have a stroke diagnosis?: No VTE Prior VTE?: No VTE Risk Level:: Medical - moderate - high VTE Device Contraindication: Treatment Not Indicated VTE Drug Contraindication: N/A - Med Ordered
[2025-03-01] MEDS: ALPRAZOLAM 0.5 MG 0.5 EACH PO (11:58)
[2025-03-01] MEDS: Heparin Sodium,Porcine 5,000 UNIT/ML VIAL 5000 UNIT SUBCUT ×2 (11:58→22:44)
--- NOTE | 2025-03-01 14:40 | P.CONNP_ITS ---
History of Present Illness Reason for Consult Consult date: 03/01/25 Chief Complaint Chief complaint: syncope History of Present Illness Narrative: ESRD PT well known to [facility] gets HD [facility] ( [id number]) MWF ad with syncope and chronci diarrhea and AMS with ques of recent SZ Neuro eval in progress Complicated MEd history ( see below) HAS LUE AVF for HD and a port for IV draws and VF as he is a diffuulct stick Overall feeling better today but still doesnt feel safe to go home Review of Systems Review of Systems No recent cold or flu-like illness Yes all other systems are reviewed and are negative Constitutional: Denies body ache(s), Denies chills, Denies fever(s), Reports headache(s) and Reports malaise Eyes: Reports no additional eye complaints Reports system reviewed and no additional complaints, except as documented and Reports headache(s) Cardiovascular: Denies chest pain, Denies leg edema, Reports Loss of Consciousness, Denies palpitations, Denies dyspnea and Denies dyspnea on exertion Respiratory: Denies no additional respiratory complaints, Denies dyspnea and Denies dyspnea on exertion Gastrointestinal: Reports nausea Genitourinary: Reports no additional male genitourinary complaints Reports headache(s) Psychiatric: Reports no additional psychiatric complaints Endocrine: Denies palpitations PMFSH Past Medical History Medical History Syncope ESRD needing dialysis Drug abuse Normocytic anemia CKD (chronic kidney disease) Anemia HTN (hypertension) Seizure disorder ESRD on dialysis End stage chronic kidney disease Bilateral lower extremity pain Back pain Family History Family History Sister Substance use disorder Social History Social History Household Members: Family Household Members Other:: mom, step dad, sister and nephew Housing: House Do you presently have visiting nurse or other home services: No Alcohol intake: never Comment: Pt refusing bed alarm Patient Tobacco Use Status: Never used Tobacco Smoked in Last 30 Days: No e-Cigarette/Vaping Use: Never Used Use of substances other than those prescribed or required for medical reasons: No Substance Use Type: Marijuana Advance Directives: Yes Advance Directives on File: Yes Advance Directives Date on File: 03/20/24 Do you have a plan to hurt others: No Plan service: No Cognitive needs: No Hearing needs: No Vision needs: No Meds Allergies Allergy/AdvReac Type Severity Reaction Status Date / Time ceftriaxone AdvReac Nausea and Verified 02/28/25 20:02 Vomiting lorazepam [From Ativan] AdvReac Shakiness Verified 02/28/25 20:02 metoclopramide [From Reglan] AdvReac Nausea Verified 02/28/25 20:02 Active Medications: Current Medications Acetaminophen (Acetaminophen 325 Mg Tablet) 650 mg PO Q6H PRN PRN Reason: Pain, Mild 1-3,fever,headache Last Admin: 03/01/25 02:37 Dose: 650 mg Atorvastatin Calcium (Atorvastatin Calcium 20 Mg Tablet) 20 mg PO DAILY [facility] Buspirone HCl (Buspirone Hcl 5 Mg Tablet) 15 mg PO BID [facility] Calcium Carbonate (Calcium Carbonate 750 Mg Tab.Chew) 750 mg PO Q4H PRN PRN Reason: Heartburn Carvedilol (Carvedilol 25 Mg Tablet) 25 mg PO BID [facility]; Protocol Last Admin: 03/01/25 10:20 Dose: 25 mg Gabapentin (Gabapentin 100 Mg Capsule) 200 mg PO BID [facility] Heparin Sodium (Porcine) (Heparin Sodium,Porcine 5,000 Unit/Ml Vial) 5,000 unit SUBCUT Q12H [facility]ZEL Last Admin: 03/01/25 11:58 Dose: 5,000 unit Hydralazine HCl (Hydralazine Hcl 20 Mg/Ml Vial) 10 mg IVPUSH Q6H PRN; Protocol PRN Reason: SBP > 160 Levetiracetam (Levetiracetam 250 Mg Tablet) 750 mg PO BID DENZEL Levetiracetam (Levetiracetam 500 Mg Tablet) 500 mg PO [id number]@1600 [facility] Losartan Potassium (Losartan Potassium 50 Mg Tablet) 100 mg PO BID [facility]; Protocol Magnesium Hydroxide (Milk Of Magnesia 30 Ml Oral.Susp) 30 ml PO DAILY PRN PRN Reason: Constipation Melatonin (Melatonin 3 Mg Tablet) 6 mg PO BEDTIME PRN PRN Reason: Insomnia Pt Own (Alprazolam 0 .5 Mg Tablet Extended Release 24 Hr) 0.5 mg PO BID PRN PRN Reason: Anxiety Last Admin: 03/01/25 11:58 Dose: 0.5 mg Ondansetron HCl (Ondansetron Hcl 4 Mg/2 Ml Vial) 4 mg IVPUSH Q6H PRN PRN Reason: Nausea Last Admin: 03/01/25 10:16 Dose: 4 mg Oxycodone HCl (Oxycodone Hcl Immed Release 5 Mg Tablet) 5 mg PO Q6H PRN PRN Reason: Pain, Severe (Pain Scale 7-10) Last Admin: 03/01/25 10:20 Dose: 5 mg Sertraline HCl (Sertraline Hcl 50 Mg Tablet) 50 mg PO DAILY [facility] Last Admin: 03/01/25 10:20 Dose: 50 mg Sevelamer Carbonate (Sevelamer Carbonate Tablet 800 Mg Tablet) 2,400 mg PO TIDWM [facility] Last Admin: 03/01/25 12:03 Dose: Not Given Sodium Chloride (0.9 % Sodium Chloride Flush 3 Ml Syringe) [facility] Last Admin: 03/01/25 09:22 Dose: Not Given Trazodone HCl (Trazodone Hcl 50 Mg Tablet) 50 mg PO BEDTIME PRN PRN Reason: Sleep Home Medications ?Medication ?Instructions ?Recorded ?Confirmed ?Last Taken ?Type atorvastatin 20 mg tablet 20 mg PO DAILY 03/13/23 03/01/25 02/28/25 History clonidine 0.3 mg/24 hr weekly 1 patch topical FR@0900 03/13/23 03/01/25 02/26/25 History transdermal patch gabapentin 100 mg capsule 200 mg PO BID 03/13/23 03/01/25 02/28/25 History ketoconazole 2 % topical cream 1 appl topical DAILY PRN Rash 03/13/23 03/01/25 Unknown History sennosides 8.6 mg-docusate sodium 2 tab PO BID PRN Constipation 03/13/23 03/01/25 02/28/25 History 50 mg tablet (Senna Plus) sertraline 50 mg tablet 50 mg PO DAILY 03/13/23 03/01/25 02/28/25 History sevelamer carbonate 800 mg tablet 2,400 mg PO TIDWMEAL 03/13/23 03/01/25 02/28/25 History levetiracetam 500 mg tablet 500 mg PO BID 06/14/23 03/01/25 02/28/25 History levetiracetam 500 mg tablet 500 mg PO MOWEFR AFTER DIALYSIS ON 02/24/24 03/01/25 10/19/24 History DIALYSIS DAYS losartan 100 mg tablet 100 mg PO BID 02/24/24 03/01/25 02/28/25 History nitroglycerin 0.4 mg sublingual 0.4 mg sublingual Q5M PRN Chest 02/24/24 03/01/25 Unknown History tablet Pain alprazolam 0.5 mg tablet,extended 0.5 mg PO BID PRN Anxiety 02/26/25 03/01/25 Unknown History release 24 hr buspirone 15 mg tablet 15 mg PO BID 02/26/25 03/01/25 02/28/25 History carvedilol 12.5 mg tablet 25 mg PO BID 02/26/25 03/01/25 02/28/25 History hydrocortisone 2.5 % topical cream 1 appl topical DAILY PRN Rash 02/26/25 03/01/25 Unknown History trazodone 50 mg tablet 50 mg PO BEDTIME PRN Sleep 02/26/25 03/01/25 02/28/25 History vitamin B complex and vitamin C 1 cap PO BEDTIME 03/01/25 03/01/25 02/27/25 History no.20-folic acid 1 mg capsule (Triphrocaps) Physical Exam Vital Signs: Last Vital Signs Temp 97.7 F 03/01/25 12:27 Pulse 70 03/01/25 12:27 Resp 10 L 03/01/25 12:27 BP 138/84 03/01/25 12:27 Pulse Ox 97 03/01/25 12:27 O2 Del Method Room Air 03/01/25 12:27 BMI result Body Mass Index 31.7 Const General: cooperative, comfortable, no acute distress, alert and awake Nutritional Appearance: obese Orientation/consciousness: patient oriented x3 HEENT Head: Yes normocephalic and Yes atraumatic Neck Neck: Yes trachea midline, Yes supple and Yes no JVD Resp Effort & Inspection: normal respiratory effort Auscultation: clear to auscultation bilaterally Cardio Jugular venous distension: no JVD Palpation: normal PMI Rate: regular rate Rhythm: regular rhythm Heart sounds: S1 normal heart sound present, S2 normal heart sound present, no click, no gallops and no murmurs GI Auscultation: normal bowel sounds Skin General skin exam: no rashes or lesions noted Neuro Other: He is alert and awake with normal spontaneity of speech fluency comprehension and flat affect. He recognize me. There was mild bruise on his forehead. Otherwise face was symmetrical. Deep tendon reflexes were absent with flexor plantars. Visual soler are full. Speech was normal. General: patient oriented x3 and no focal motor deficits Extrem General: Yes no clubbing, cyanosis or edema Psych Affect: Anxious affect present and Blunted affect present Results Lab Results 03/01/25 04:42 03/01/25 04:42 Lab results: Chemistry 02/28/25 03/01/25 20:50 04:42 Sodium 142 141 Potassium 3.7 3.6 Carbon Dioxide 27 29 BUN 40 H 43 H Creatinine 12.09 H* 13.00 H* Calcium 8.9 D 8.5 Hematology 03/01/25 03/01/25 00:34 04:42 WBC 5.7 5.5 Hgb 9.6 L 9.4 L Plt Count 88 L 92 L Assessment and Plan (1) ESRD (end stage renal disease): Status: Acute Plan 29 Y/O ESRD [facility] MWF adm with AMS PMH ESRD, hypertension, seizure disorder, presented with loss of consciousness Loss of consciousness: ques Sz vs other; getting Neuro eval End-stage renal disease Hemodialysis MWF Hypertension Losartan, clonidine, Coreg Mood disorder Sertraline, alprazolam DVT prophylaxis- hep sq REC: HD today and cotn on usu MWF schedule Procedures Date of Service Date of Service: 03/01/25
[2025-03-01] MEDS: 0.9 % Sodium Chloride Flush 3 ML SYRINGE IVFLUSH ×2 (17:38→20:16)
[2025-03-01] MEDS: Losartan Potassium 50 MG TABLET 100 MG PO (20:13)
[2025-03-01] MEDS: Gabapentin 100 MG CAPSULE 200 MG PO (20:13)
[2025-03-01] MEDS: levETIRAcetam 250 MG TABLET 750 MG PO (20:14)
[2025-03-01] MEDS: busPIRone HCl 5 MG TABLET 15 MG PO (20:14)
[2025-03-01] MEDS: hydrALAZINE HCl 20 MG/ML VIAL 10 MG IVPUSH (20:15)
[2025-03-02] VITALS (11 sets, daily range): BP systolic 133–165; BP diastolic 60–102; PULSE 74–96; RESP 16–17; TEMP 36.2–36.4; O2SAT 94–98
[2025-03-02 07:19] LABS: Hemoglobin 11.1 g/dl (14.0-18.0); Mean Corpuscular HGB Conc 33.6 g/dl (31.0-36.0); Mean Corpuscular Hemoglobin 31.7 pg (27.0-33.0); Mean Corpuscular Volume 94.3 fL (80.0-98.0); Mean Platelet Volume 11.3 fL (9.4-12.4); Platelet Count 116 X10*3/uL (160-400); White Blood Count 6.5 X10*3/uL (4.8-10.8)
[2025-03-02] MEDS: Gabapentin 100 MG CAPSULE 200 MG PO (07:23)
[2025-03-02] MEDS: Losartan Potassium 50 MG TABLET 100 MG PO (07:23)
[2025-03-02] MEDS: Atorvastatin Calcium 20 MG TABLET PO (07:24)
[2025-03-02] MEDS: 0.9 % Sodium Chloride Flush 3 ML SYRINGE IVFLUSH ×2 (07:24→16:25)
[2025-03-02] MEDS: Sertraline HCL 50 MG TABLET PO (07:24)
[2025-03-02] MEDS: busPIRone HCl 5 MG TABLET 15 MG PO (07:24)
[2025-03-02] MEDS: levETIRAcetam 250 MG TABLET 750 MG PO (07:24)
[2025-03-02] MEDS: carvediloL 25 MG TABLET PO (07:24)
[2025-03-02] MEDS: oxyCODONE HCl Immed Release 5 MG TABLET PO (07:27)
[2025-03-02 07:46] LABS: Anion Gap 17 (12-20); Blood Urea Nitrogen 26 mg/dL (9-16); Calcium 9.2 mg/dL (8.4-10.2); Carbon Dioxide 31 mmol/L (22-29); Chloride 97 mmol/L (96-108); Estimated Glomerular Filt Rate 7; Glucose Random 81 mg/dL (60-115); Potassium 3.8 mmol/L (3.3-5.1); Sodium 141 mmol/L (135-145)
[2025-03-02] MEDS: Heparin Sodium,Porcine 5,000 UNIT/ML VIAL 5000 UNIT SUBCUT (09:50)
--- NOTE | 2025-03-02 12:55 | P.PNIM_ITS ---
Subjective Subjective Date of Service: 03/02/25 Interval History: nausea Physical Exam 2 Vital Signs: Vital Signs: Last Vital Signs Temp 97.3 F 03/02/25 11:39 Pulse 82 03/02/25 11:39 Resp 17 03/02/25 11:39 BP 133/88 03/02/25 11:39 Pulse Ox 96 03/02/25 11:39 O2 Del Method Room Air 03/02/25 11:39 BMI result Body Mass Index 32.6 Const: General: cooperative, comfortable, no acute distress, alert and awake Nutritional Appearance: obese Orientation/consciousness: patient oriented x3 HEENT: Head: Yes normocephalic and Yes atraumatic Neck: Neck: Yes trachea midline, Yes supple and Yes no JVD Resp: Effort & Inspection: normal respiratory effort Auscultation: clear to auscultation bilaterally Cardio: Jugular venous distension: no JVD Palpation: normal PMI Rate: r egular rate Rhythm: regular rhythm Heart sounds: S1 normal heart sound present, S2 normal heart sound present, no click, no gallops and no murmurs GI: Auscultation: normal bowel sounds Skin: General skin exam: no rashes or lesions noted Neuro: Other: He is alert and awake with normal spontaneity of speech fluency comprehension and flat affect. He recognize me. There was mild bruise on his forehead. Otherwise face was symmetrical. Deep tendon reflexes were absent with flexor plantars. Visual soler are full. Speech was normal. General: patient oriented x3 and no focal motor deficits Extrem: General: Yes no clubbing, cyanosis or edema Psych: Affect: Anxious affect present and Blunted affect present Objective Data Active Medications Acetaminophen (Acetaminophen 325 Mg Tablet) 650 mg PO Q6H PRN PRN Reason: Pain, Mild 1-3,fever,headache Last Admin: 03/01/25 02:37 Dose: 650 mg Documented By: SHANIA Atorvastatin Calcium (Atorvastatin Calcium 20 Mg Tablet) 20 mg PO DAILY [facility] Last Admin: 03/02/25 07:24 Dose: 20 mg Documented By: SEGUNDO Buspirone HCl (Buspirone Hcl 5 Mg Tablet) 15 mg PO BID [facility] Last Admin: 03/02/25 07:24 Dose: 15 mg Documented By: SEGUNDO Calcium Carbonate (Calcium Carbonate 750 Mg Tab.Chew) 750 mg PO Q4H PRN PRN Reason: Heartburn Carvedilol (Carvedilol 25 Mg Tablet) 25 mg PO BID [facility]; Protocol Last Admin: 03/02/25 07:24 Dose: 25 mg Documented By: SEGUNDO Gabapentin (Gabapentin 100 Mg Capsule) 200 mg PO BID [facility] Last Admin: 03/02/25 07:23 Dose: 200 mg Documented By: SEGUNDO Heparin Sodium (Porcine) (Heparin Sodium,Porcine 5,000 Unit/Ml Vial) 5,000 unit SUBCUT Q12H [facility] Last Admin: 03/02/25 09:50 Dose: 5,000 unit Documented By: SEGUNDO Hydralazine HCl (Hydralazine Hcl 20 Mg/Ml Vial) 10 mg IVPUSH Q6H PRN; Protocol PRN Reason: SBP > 160 Last Admin: 03/01/25 20:15 Dose: 10 mg Documented By: DENNYS Levetiracetam (Levetiracetam 250 Mg Tablet) 750 mg PO BID [facility] Last Admin: 03/02/25 07:24 Dose: 750 mg Documented By: SEGUNDO Levetiracetam (Levetiracetam 500 Mg Tablet) 500 mg PO [id number]@1600 [facility] Last Admin: 03/01/25 17:38 Dose: 500 mg Documented By: SEGUNDO Losartan Potassium (Losartan Potassium 50 Mg Tablet) 100 mg PO BID [facility]; Protocol Last Admin: 03/02/25 07:23 Dose: 100 mg Documented By: SEGUNDO Magnesium Hydroxide (Milk Of Magnesia 30 Ml Oral.Susp) 30 ml PO DAILY PRN PRN Reason: Constipation Melatonin (Melatonin 3 Mg Tablet) 6 mg PO BEDTIME PRN PRN Reason: Insomnia Pt Own (Alprazolam 0 .5 Mg Tablet Extended Release 24 Hr) 0.5 mg PO BID PRN PRN Reason: Anxiety Last Admin: 03/01/25 11:58 Dose: 0.5 mg Documented By: SAUL Ondansetron HCl (Ondansetron Hcl 4 Mg/2 Ml Vial) 4 mg IVPUSH Q6H PRN PRN Reason: Nausea Last Admin: 03/01/25 23:58 Dose: 4 mg Documented By: DENNYS Oxycodone HCl (Oxycodone Hcl Immed Release 5 Mg Tablet) 5 mg PO Q6H PRN PRN Reason: Pain, Severe (Pain Scale 7-10) Last Admin: 03/02/25 07:27 Dose: 5 mg Documented By: SEGUNDO Sertraline HCl (Sertraline Hcl 50 Mg Tablet) 50 mg PO DAILY [facility] Last Admin: 03/02/25 07:24 Dose: 50 mg Documented By: SEGUNDO Sevelamer Carbonate (Sevelamer Carbonate Tablet 800 Mg Tablet) 2,400 mg PO TIDWM [facility] Last Admin: 03/02/25 11:43 Dose: Not Given Documented By: SEGUNDO Non-Admin Reason: Patient Refused Sodium Chloride (0.9 % Sodium Chloride Flush 3 Ml Syringe) 3 ml IVFLUSH QSHIFT [facility] Last Admin: 03/02/25 07:24 Dose: 3 ml Documented By: SEGUNDO Trazodone HCl (Trazodone Hcl 50 Mg Tablet) 50 mg PO BEDTIME PRN PRN Reason: Sleep Labs 03/02/25 05:55 03/02/25 05:54 Labs: Laboratory Results - last 24 hr 03/02/25 03/02/25 05:54 05:55 MCV 94.3 MCH 31.7 MCHC 33.6 RDW 12.0 Plt Count 116 L D MPV 11.3 Absolute Nucleated RBC 0.000 Nucleated RBC % (auto) 0.0 Anion Gap 17 Estim Creat Clear Calc 15.0 Estimated GFR 7 Random Glucose 81 Calcium 9.2 D Assessment and Plan (1) ESRD (end stage renal disease): Status: Acute Plan 29M PMH ESRD, hypertension, seizure disorder, presented with loss of consciousness Loss of consciousness Most consistent with seizure, neurology appreciated, Keppra increased to 750 mg b.i.d. Monitor orthostatics, telemetry, echo with normal ef, asymmetric hypertrophy End-stage renal disease Hemodialysis Hypertension Losartan, clonidine, Coreg Mood disorder Sertraline, alprazolam DVT prophylaxis- hep sq full code reason for continued hospitalization:monitor tele, [place]za Quality Stroke Does the patient have a stroke diagnosis?: No VTE Prior VTE?: No VTE Risk Level:: Medical - moderate - high VTE Device Contraindication: Treatment Not Indicated VTE Drug Contraindication: N/A - Med Ordered
--- NOTE | 2025-03-02 15:12 | MHC.CM.PN ---
Addendum entered by Ely Simpson 03/02/25 15:22: Pillo Page PCP Original Note: IMM 03/02/25 DX Syncope Lives with other family members. He uses a cane for ambulation. Assist ADLs, his sister is his MANAGER FAMILY. [facility] MANAGER FAMILY in place. ROSITA RN [facility] M-W-F [facility] HD [place] DP home with resumption of services that are already in place. A family member will provide transport home. DC is anticipated tomorrow.
--- NOTE | 2025-03-02 15:51 | P.DS_ITS ---
DS: Providers Provider Date of Service: 03/02/25 Date of admission: 02/28/25 23:53 Date of discharge: 03/02/25 Primary care physician: Unknown Physician Consults: 02/28/25 23:55 Consult to Cardiology Routine Consulting Provider: [facility] Reason for consultation: rec syncope 03/01/25 00:38 Consult to Neurology Routine Consulting Provider: [facility] Reason for consultation: syncope/ seizure 03/01/25 07:43 Consult to Nephrology Routine Consulting Provider: [facility] Reason for consultation: esrd DS: Diagnosis Discharge Diagnosis (1) ESRD (end stage renal disease): Status: Acute DS: Summary Hospital Course Hospital Course: from initial hpi: 29-year-old male with a past medical history of HTN, anemia, ESRD on hemodialysis, seizure disorder, chronic back pain; recent admission to the hospital for nearsyncope presented to the hospital today with a chief complaint of syncope. Reportedly patient stood up from his bed and suddenly fainted and fell onto the floor; episode was brief. Patient has postictal confusion. Patient's mom witnessed the episode and mentioned patient did not have any seizure-like activity. Subsequently brought him to the hospital for further evaluation. Reports that last hemodialysis session was on Saturday. Denies any fever chills cough or sputum production. Denies any GI or symptoms. Denies any headaches or blurry visions. Review of all other systems is negative except mentioned above ER course: Per ER team, patient's EKG was nonischemic, troponins were negative; creatinine elevated; blood pressure elevated; patient back to his baseline; given seizures in the differentials-patient was given a dose of Keppra. hospital course: Patient was admitted for loss of consciousness. Was seen by Neurology who felt this was most likely seizure. Recommended increasing Keppra to 750 mg b.i.d.. Orthostatics were negative, no events on telemetry, echo with normal EF asymmetric hypertrophy. The end-stage renal disease on hemodialysis. For hypertension was continued losartan, clonidine, Coreg. For mood disorder was continued sertraline and alprazolam. Patient is feeling better will be discharged home. Time Attestation Discharge Coordination Time (in mins): 33 Quality: Safe Use of Opioids Does Pt have an Active Cancer Diagnosis on the Problem List?: No Quality: Stroke Does the patient have a stroke diagnosis?: No Physical Exam Vital Signs: Vital Signs: Last Vital Signs Temp 97.2 F 03/02/25 15:42 Pulse 76 03/02/25 15:42 Resp 16 03/02/25 15:42 BP 140/83 H 03/02/25 15:42 Pulse Ox 97 03/02/25 15:42 O2 Del Method Room Air 03/02/25 15:42 BMI result Body Mass Index 32.6 Const: General: cooperative, comfortable, no acute distress, alert and awake Nutritional Appearance: obese Orientation/consciousness: patient oriented x3 HEENT: Head: Yes normocephalic and Yes atraumatic Neck: Neck: Yes trachea midline, Yes supple and Yes no JVD Resp: Effort & Inspection: normal respiratory effort Auscultation: clear to auscultation bilaterally Cardio: Jugular venous distension: no JVD Palpation: normal PMI Rate: regular rate Rhythm: regular rhythm Heart sounds: S1 normal heart sound present, S2 normal heart sound present, no click, no gallops and no murmurs GI: Auscultation: normal bowel sounds Skin: General skin exam: no rashes or lesions noted Neuro: Other: He is alert and awake with normal spontaneity of speech fluency comprehension and flat affect. He recognize me. There was mild bruise on his forehead. Otherwise face was symmetrical. Deep tendon reflexes were absent with flexor plantars. Visual soler are full. Speech was normal. General: patient oriented x3 and no focal motor deficits Extrem: General: Yes no clubbing, cyanosis or edema Psych: Affect: Anxious affect present and Blunted affect present DS: Data Data Completed and Pending Completed studies during hospitalization [Text1]: Procedures Performance of Urinary Filtration, Intermittent, Less than 6 Hours Per Day (10/20/24) Transfusion of Nonautologous Red Blood Cells into Peripheral Vein, Percutaneous Approach (04/19/23) Labs on day of discharge: Laboratory Results - last 24 hr 03/02/25 03/02/25 05:54 05:55 WBC 6.5 RBC 3.50 L Hgb 11.1 L Hct 33.0 L D MCV 94.3 MCH 31.7 MCHC 33.6 RDW 12.0 Plt Count 116 L D MPV 11.3 Absolute Nucleated RBC 0.000 Nucleated RBC % (auto) 0.0 Sodium 141 Potassium 3.8 Chloride 97 Carbon Dioxide 31 H Anion Gap 17 BUN 26 H Creatinine 9.12 H* Estim Creat Clear Calc 15.0 Estimated GFR 7 Random Glucose 81 Calcium 9.2 D Discharge Plan Discharge Anticipated Discharge Date/Time: 03/02/25 15:48 Patient Disposition: Home, Self-Care Discharge Diagnosis: seizure Referrals: Physician,Unknown J [Primary Care Provider] - 1 Week Discharge Medications: New levetiracetam 250 mg Tablet 750 mg PO BID Qty: 540 0RF Continued atorvastatin 20 mg tablet 20 mg PO DAILY sennosides-docusate sodium [Senna Plus] 8.6-50 mg tablet 2 tab PO BID PRN (Reason: Constipation) clonidine 0.3 mg/24 hr patch weekly 1 patch topical FR@0900 gabapentin 100 mg capsule 200 mg PO BID sertraline 50 mg tablet 50 mg PO DAILY sevelamer carbonate 800 mg tablet 2,400 mg PO TIDWMEAL ketoconazole 2 % Cream 1 appl TOPICAL DAILY PRN (Reason: Rash) Rx Instructions: face levetiracetam 500 mg Tablet 500 mg PO MOWEFR Rx Instructions: ADDITIONAL TABLET AFTER DIALYSIS nitroglycerin 0.4 mg Tablet, Sublingual 0.4 mg SUBLINGUAL Q5M PRN (Reason: Chest Pain) Rx Instructions: do not exceed 3 doses per episode losartan 100 mg tablet 100 mg PO BID carvedilol 12.5 mg tablet 25 mg PO BID trazodone 50 mg tablet 50 mg PO BEDTIME PRN (Reason: Sleep) buspirone 15 mg tablet 15 mg PO BID alprazolam 0.5 mg Tablet Extended Release 24 Hr 0.5 mg PO BID PRN (Reason: Anxiety) hydrocortisone 2.5 % Cream 1 appl TOPICAL DAILY PRN (Reason: Rash) Protocol: Apply to: Apply to: FACE Triphrocaps 1 mg capsule 1 cap PO BEDTIME ondansetron 4 mg tablet,disintegrating 4 mg PO Q8H PRN (Reason: nausea and vomiting) Qty: 14 0RF Discontinued levetiracetam 500 mg tablet 500 mg PO BID Discharge Orders: Discharge Order (Routine); Ordered 03/02/25 Ordered By: Aftab Rios Diet: Advance to usual diet Activity on Discharge: As tolerated Stand Alone Forms: Patient Portal Discharge page Print Language: Urdu Care Plan Goals: recovery Health Concerns: seizure Plan of Treatment: icnreased keppra to 750mg bid Assessment: see above
--- NOTE | 2025-03-02 16:02 | MHC.CM.PN ---
IMM 03/02/25 Patient is discharged to home self care. A family member will provide transportation home.
[2025-03-02] MEDS: Heparin Sodium,Porcine Flush 50 UNITS/5 ML SYRINGE IVFLUSH (16:21)
== END 2025-03-02 18:31 | disposition home or self-care (01) | DRG 100 ==
LOC: HO.ED 21:34 → HO.EDOVER 23:58 → HO.IMC 03-01 14:24
PROVIDERS: Admitting Provider Hospitalist; Emergency Provider Internal Medicine; PCP Nurse Practitioner Family; Visit Provider Internal Medicine
DX: G40.909 Epilepsy, unspecified, not intractable, without status epilepticus (principal); N18.6 End stage renal disease; I12.0 Hypertensive chronic kidney disease with stage 5 chronic kidney disease or end stage renal disease; F39 Unspecified mood [affective] disorder; F17.210 Nicotine dependence, cigarettes, uncomplicated; T42.6X6A Underdosing of other antiepileptic and sedative-hypnotic drugs, initial encounter; D63.1 Anemia in chronic kidney disease; I16.0 Hypertensive urgency; Z99.2 Dependence on renal dialysis; D69.6 Thrombocytopenia, unspecified; Z71.6 Tobacco abuse counseling; Z79.899 Other long term (current) drug therapy
CPT/HCPCS: 36415; 70450; 80048; 80053; 83735; 84484; 85025; 85027; 90999; 93005; 93306; 95816; 99285; J0360; J1171; J1642; J1644; J2270; J2405

== ENCOUNTER → 2025-02-28 22:19 | Outpatient (BNV) | payer OTHER, SELFPAY | PROVIDERS: Admitting Provider Hospitalist; Emergency Provider Internal Medicine; Visit Provider Radiology Diagnostic Radiology | DX: R42 Dizziness and giddiness (principal); W19.XXXA Unspecified fall, initial encounter | CPT/HCPCS: 70450 ==

== ENCOUNTER 2025-02-28 23:53 | Outpatient (BNV) | payer OTHER, SELFPAY | END 2025-03-01 07:00 | PROVIDERS: Admitting Provider Hospitalist; Emergency Provider Internal Medicine; Visit Provider Internal Medicine Cardiovascular Disease | DX: I42.2 Other hypertrophic cardiomyopathy (principal); I31.39 Other pericardial effusion (noninflammatory) | CPT/HCPCS: 93306 ==

== ENCOUNTER → 2025-02-28 23:53 | Outpatient (BNV) | payer OTHER, SELFPAY | PROVIDERS: Admitting Provider Hospitalist; Emergency Provider Internal Medicine; Visit Provider Internal Medicine | DX: N18.6 End stage renal disease (principal) | CPT/HCPCS: 99233 ==

== ENCOUNTER → 2025-02-28 23:53 | Outpatient (BNV) | payer OTHER, SELFPAY | PROVIDERS: Admitting Provider Hospitalist; Emergency Provider Internal Medicine; Visit Provider Internal Medicine Cardiovascular Disease | DX: R55 Syncope and collapse (principal) | CPT/HCPCS: 93010; 99222 ==

== ENCOUNTER → 2025-02-28 23:53 | Outpatient (BNV) | payer OTHER, SELFPAY | PROVIDERS: Admitting Provider Hospitalist; Emergency Provider Internal Medicine; Visit Provider Psychiatry & Neurology Neurology | DX: R55 Syncope and collapse (principal) | CPT/HCPCS: 99222 ==

== ENCOUNTER 2025-03-09 06:30 | Outpatient (REF) | payer OTHER, SELFPAY ==
--- OUTSIDE RECORDS SUMMARY | 2025-03-09 09:50 | XMS_ITS | Encounter Summary ---
Author Organization [facility] Address [address] [place] [address] Phone Care Team Providers Care Solutions Development Analyst Name Role Phone Annmarie Ba MD Primary Care Provider Unavailabl e Encounter Details Date Type Department Care Team (Late st Contact Info) Description 10/19/2022 Office Communication [facility] [address] [place] [address] Edith Garcia, RN [address] [place] [address] Social History Tobacco Use Types [...] on filedocumented in this encounter Care Teams Solutions Development Analyst Relationship Specialty Start Date End Date Annmarie Ba MD PCP - General 10/03/20 06/22/24 documented as of this encounter
[2025-03-09 11:43] LABS: CDiff Gene PCR POSITIVE (Negative)
[2025-03-09 12:19] LABS: CDIFF Internal ctrl Dots and bkg OK (V); CDiff Toxin Negative (Negative)
== END 2025-03-09 06:31 | disposition home or self-care (01) ==
LOC: HO.HMGCLNP 06:30
PROVIDERS: PCP Nurse Practitioner Family; Visit Provider Nurse Practitioner Family
DX: R19.7 Diarrhea, unspecified (principal)
CPT/HCPCS: 87324; 87338; 87493

== ENCOUNTER 2025-03-11 15:03 | Outpatient (AMB) | payer OTHER, SELFPAY ==
--- NOTE | 2025-03-11 15:03 | MHC.PC.OV ---
Vital Signs 03/11/25 15:07 Height 6 ft Weight 235 lb BMI 31.9 BP 148/90 H Blood Pressure Location Rt brachial Position Sitting Respiration 16 Pulse 87 Pulse Source Pulse Oximeter Temp 98.5 F Temp Source Oral Pulse Oximetry (%) 98 Oxygen Delivery Method Room Air Intake Visit Reasons: tcm Intake Note: Pt is here today for his TCM f/u seizures Allergies ceftriaxone Adverse Reaction (Verified 03/11/25 15:09) Nausea and Vomiting lorazepam (From Ativan) Adverse Reaction (Verified 03/11/25 15:09) Shakiness metoclopramide (From Reglan) Adverse Reaction (Verified 03/11/25 15:09) Nausea Tobacco use date assessed: 03/11/25 Dental Screening Dental Screen Date: 03/11/25 Did you have a dental visit in the last 12 months?: Yes Did you have a dental problem in the last 6 months where you did not have access to dental care?: Yes Was dental information given to patient?: Patient has dentist HPI TCM TCM Information Date of Discharge 03/02/25 Discharged From [facility] Interactive Contact Date (Reference documentation from this date) 03/01/25 HPI Comments History of Present Illness Details Patient is a 29-year-old male with a past medical history of HTN, anemia, ESRD on HD (MWF), mood disorder, seizure disorder, chronic back pain who was admitted for a syncopal event on February 28. He was evaluated by Neurology while inpatient and they felt it was a seizure that he had because he had some postictal confusion so they increased his Keppra from 500mg twice daily to 750mg twice daily. Orthostatics were negative he had an echo with a normal EF that showed asymmetric hypertrophy and he had no events on telemetry. He did end up getting HD while in the hospital. His hypertension medications were continued. He was then discharged home on March 02. Since being home, the patient reports, small bump and small head lac during 02/28 episode (fell on his face). He has been taking the new dose of Keppra 750mg BID since discharge. HE has felt fine since discharge, no dizziness, no lightheadedness, he does have some headaches from hitting his head, has been going to HD as scheduled. He is not sure if he has a follow up with Neurology yet, he will call them today to find out. He is also questioning about C diff, he tells me he got a phone call today that he needs to take an antibiotic and he is asking what C diff is. He tells me he did take some antibiotics quite awhile ago for some dental procedure that he needed done and he has had watery diarrhea several times a day since then. He denies any weight loss. He also tells me he is having trouble sleeping which he takes 50 mg of trazodone for. He tells me he used to be on a much higher dose and he is asking if he should increase his dose. [facility] Medical History (Updated 03/11/25 @ 15:39 by Shelley Monteiro PA-C) Seizure disorder Syncope ESRD needing dialysis Drug abuse Normocytic anemia CKD (chronic kidney disease) Anemia HTN (hypertension) ESRD on dialysis End stage chronic kidney disease Bilateral lower extremity pain Back pain Family History Sister Substance use disorder Social History Household Members: Family Household Members Other:: mom, step dad, sister and nephew Housing: House Do you presently have visiting nurse or other home services: No Alcohol intake: never Comment: Pt refusing bed alarm Patient Tobacco Use Status: Current someday Tobacco user Tobacco use type: Smokeless Tobacco e-Cigarette/Vaping Use: Never Used Substance Use Type: Marijuana Advance Directives Date on File: 12/11/23 service: No Cognitive needs: No Hearing needs: No Vision needs: No Questionnaire Thrive Questionnaire Date Thrive assessed: 03/02/25 NAHED-7 AMB Questionnaire NAHED-7 Date NAHED - 7 assessed: 08/04/24 Source: Developed by Drs. Shad Hansen, Shirley Jenkins, Matthew Rojas and colleagues, with an educational marcela from [employer]. Physical exam (Primary Care) BMI result Body Mass Index 31.9 Tobacco/Smoking Status: Tobacco use Status Tobacco use date assessed 08/04/24 03/11/25 15:05 Patient Tobacco Use Status Former Tobacco user 03/11/25 15:05 e-Cigarette/Vaping Use Never Used 03/11/25 15:05 Thrive Assessment: Date of Thrive Assessment Date Thrive assessed 03/02/25 03/11/25 15:05 Const General: cooperative, healthy appearing, comfortable, no acute distress and well developed Orientation/consciousness: patient oriented x3 Limitations: no limitations HENMT Other: Three small bumps on upper forehead Head: Yes normal to inspection and Yes normocephalic Ears: hearing grossly normal bilaterally General nose exam: Normal external nose present Face and sinus: Yes normal facial exam Eyes General: appearance normal, both eyes and all related structures Neck Neck: Yes normal visual inspection and Yes full ROM Resp Effort & Inspection: normal respiratory effort and able to speak in complete sentences Skin General skin exam: no rashes or lesions noted Neuro General: patient oriented x3 Extrem General: Yes normal to inspection Coding Level of Care Code TCM Mod MDM <= 14 Days Diagnoses Seizure disorder G40.909 Clostridioides difficile diarrhea A04.72 Insomnia, unspecified type G47.00 Insomnia type: unspecified Assessment & Plan Assessment & Plan (1) Seizure disorder: Code(s): G40.909 - Epilepsy, unspecified, not intractable, without status epilepticus Category: Medical Plan: Patient has had not had any further seizures since increasing his dose of Keppra to 750 twice daily from 500 twice daily. He was encouraged to call neurology did not sure he has follow up with them. He tells me he usually sees them approximately every 6 months. Advised if he did have any further activity that he should go to the emergency department or call 911. (2) Clostridioides difficile diarrhea: Code(s): A04.72 - Enterocolitis due to Clostridium difficile, not specified as recurrent Category: Medical Plan: Educated patient on what C diff is and encouraged him to pick up worker the antibiotics and start taking them. Also recommended adding probiotics once he is finished taking the antibiotics. (3) Insomnia: Code(s): G47.00 - Insomnia, unspecified Category: Medical Qualifiers: Insomnia type: unspecified Qualified Code(s): G47.00 - Insomnia, unspecified Plan: Recommended he increase his trazodone to 75 mg a day, he has 50 mg tablets at home that he could cut in half to make 75 mg to see if that helps. Encouraged him to follow up with his PCP if it works well for further prescription.
[2025-03-11 15:07] VITALS: BP 148/90; PULSE 87; RESP 16; TEMP 36.9; O2SAT 98; BMI 31.9
--- OUTSIDE RECORDS SUMMARY | 2025-03-11 16:23 | XMS_ITS | Encounter Summary ---
Author Organization [facility] Address [address] [place] [address] Phone Care Team Providers Care Tableman Name Role Phone Annmarie Ba MD Primary Care Provider Unavailabl e Encounter Details Date Type Department Care Team (Late st Contact Info) Description 10/19/2022 Office Communication [facility] [address] [place] [address] Edith Garcia, RN [address] [place] [address] Social History Tobacco Use Types [...] on filedocumented in this encounter Care Teams Tableman Relationship Specialty Start Date End Date Annmarie Ba MD PCP - General 10/03/20 06/22/24 documented as of this encounter
== END 2025-03-11 15:50 | disposition home or self-care (01) ==
PROVIDERS: PCP Nurse Practitioner Family; Visit Provider Physician Assistant
DX: G40.909 Epilepsy, unspecified, not intractable, without status epilepticus (principal); A04.72 Enterocolitis due to Clostridium difficile, not specified as recurrent; G47.00 Insomnia, unspecified

== ENCOUNTER → 2025-03-11 15:03 | Outpatient (BNVA) | payer OTHER, SELFPAY | PROVIDERS: PCP Nurse Practitioner Family; Visit Provider Physician Assistant | DX: I12.0 Hypertensive chronic kidney disease with stage 5 chronic kidney disease or end stage renal disease (principal); N18.6 End stage renal disease; A04.72 Enterocolitis due to Clostridium difficile, not specified as recurrent; G47.00 Insomnia, unspecified; G40.909 Epilepsy, unspecified, not intractable, without status epilepticus; Z79.899 Other long term (current) drug therapy; Z79.891 Long term (current) use of opiate analgesic; Z91.81 History of falling | CPT/HCPCS: 99495 ==

== ENCOUNTER 2025-03-14 15:49 | Inpatient (IN) | payer OTHER, SELFPAY ==
[2025-03-14] VITALS (10 sets, daily range): BP systolic 164–229; BP diastolic 81–142; PULSE 78–90; RESP 18–26; TEMP 36.2–36.6; O2SAT 90–98; BMI 31.9
--- NOTE | 2025-03-14 | ECG_ITS ---
Test Reason : ABDOMINAL PAIN Blood Pressure : */* mmHG Vent. Rate : 81 BPM Atrial Rate : 81 BPM P-R Int : 176 ms QRS Dur : 82 ms QT Int : 364 ms P-R-T Axes : 101 73 84 degrees QTcB Int : 422 ms Artifact in tracing Normal sinus rhythm Normal ECG When compared with ECG of 28-Feb-2025 19:53, No significant changes seen Referred By: Stefan Medina Electronically Signed By: CHASE FERREIRA
--- NOTE | ~2025-03-14 | XR_ITS ---
CLINICAL HISTORY: cp 1 view chest x-ray Comparison: CR - XR CHEST 2V - 02/26/25 17:39 EDT Findings: Right-sided Port-A-Cath. No consolidation or effusion. Enlargement of the cardiopericardial silhouette. No acute fracture. IMPRESSION: 1. No acute findings. Cardiomegaly. This document has been electronically signed by: Rolando Ruiz MD on 03/14/2025 17:16:46
--- NOTE | 2025-03-14 16:23 | ED.WEAKNESS ---
HPI - Weakness General Chief complaint: Weakness Stated complaint: diff breathing when lying down,tingling hands/feet Time Seen by Provider: 03/14/25 15:58 History of Present Illness HPI Narrative: 29-year-old male with a past medical history of HTN, anemia, ESRD on hemodialysis, seizure disorder, chronic back pain. Patient was diagnosed with C diff 2 days ago. Last got dialyze on Saturday skip his dialysis on Saturday now noticing increasing shortness of breath generalized malaise weakness. Patient then came in for further evaluation. No abdominal pain. No focal weakness. Still have diarrhea. Been compliant taking his antibiotics. Patient is from home. Related Data Home Medications ?Medication ?Instructions ?Recorded ?Confirmed atorvastatin 20 mg tablet 20 mg PO DAILY 03/13/23 03/01/25 clonidine 0.3 mg/24 hr weekly 1 patch topical FR@0900 03/13/23 03/01/25 transdermal patch gabapentin 100 mg capsule 200 mg PO BID 03/13/23 03/01/25 ketoconazole 2 % topical cream 1 appl topical DAILY PRN Rash 03/13/23 03/01/25 sennosides 8.6 mg-docusate sodium 2 tab PO BID PRN Constipation 03/13/23 03/01/25 50 mg tablet (Senna Plus) sertraline 50 mg tablet 50 mg PO DAILY 03/13/23 03/01/25 sevelamer carbonate 800 mg tablet 2,400 mg PO TIDWMEAL 03/13/23 03/01/25 losartan 100 mg tablet 100 mg PO BID 02/24/24 03/01/25 nitroglycerin 0.4 mg sublingual 0.4 mg sublingual Q5M PRN Chest 02/24/24 03/01/25 tablet Pain alprazolam 0.5 mg tablet,extended 0.5 mg PO BID PRN Anxiety 02/26/25 03/01/25 release 24 hr buspirone 15 mg tablet 15 mg PO BID 02/26/25 03/01/25 carvedilol 12.5 mg tablet 25 mg PO BID 02/26/25 03/01/25 hydrocortisone 2.5 % topical cream 1 appl topical DAILY PRN Rash 02/26/25 03/01/25 trazodone 50 mg tablet 50 mg PO BEDTIME PRN Sleep 02/26/25 03/01/25 vitamin B complex and vitamin C 1 cap PO BEDTIME 03/01/25 03/01/25 no.20-folic acid 1 mg capsule (Triphrocaps) Previous Rx's ?Medication ?Instructions ?Recorded ondansetron 4 mg disintegrating 4 mg PO Q8H PRN nausea and 10/20/24 tablet vomiting #14 tabs levetiracetam 250 mg tablet 750 mg (3 x 250 mg) PO BID #540 03/02/25 tabs Allergies Allergy/AdvReac Type Severity Reaction Status Date / Time ceftriaxone AdvReac Nausea and Verified 03/14/25 15:57 Vomiting lorazepam (From Ativan) AdvReac Shakiness Verified 03/14/25 15:57 metoclopramide (From Reglan) AdvReac Nausea Verified 03/14/25 15:57 Review of Systems Review of Systems: Positive history of end-stage renal disease. Positive history of diarrhea diagnosed with C diff PMFSH Past Medical History Attestation statement: The following information was validated with the patient. Medical History Seizure disorder Syncope ESRD needing dialysis Drug abuse Normocytic anemia CKD (chronic kidney disease) Anemia HTN (hypertension) ESRD on dialysis End stage chronic kidney disease Bilateral lower extremity pain Back pain Family History Family History Sister Substance use disorder Social History Social History Household Members: Family Household Members Other:: mom, step dad, sister and nephew Housing: House Do you presently have visiting nurse or other home services: No Alcohol intake: unknown Comment: Pt refusing bed alarm Patient Tobacco Use Status: Current someday Tobacco user Tobacco use type: Smokeless Tobacco Smoked in Last 30 Days: No e-Cigarette/Vaping Use: Never Used Use of substances other than those prescribed or required for medical reasons: No Substance Use Type: Marijuana Advance Directives: Yes Advance Directives on File: Yes Advance Directives Date on File: 12/11/23 Do you have a plan to hurt others: No Plan service: No Cognitive needs: No Hearing needs: No Vision needs: No Physical Exam Vital Signs: Vital Signs: Last Vital Signs Pulse 90 03/14/25 18:02 Resp 24 H 03/14/25 18:02 BP 168/107 H 03/14/25 18:02 Pulse Ox 92 03/14/25 18:02 O2 Del Method Nasal Cannula 03/14/25 18:02 O2 Flow Rate 2 03/14/25 18:02 BMI result Body Mass Index 31.9 Appearance: Alert. Oriented X3. No acute distress. Eyes: Pupils equal, round and reactive to light. ENT: Pharynx normal. Neck: Normal inspection. Neck supple. No lymph nodes noted. No crepitus CVS: Normal heart rate and rhythm. Pulses normal. Normal S1 and S2 Respiratory: No respiratory distress. Breath sounds normal. No Wheezing. No rales Abdomen: Soft and nontender. No rigidity. No distention. good BS x4 Skin: Skin warm and dry. Normal skin color. Normal skin turgor. Extremities: No lower extremity edema. Neurovascular intact to all extremities. No Lacerations. No Rash Neuro: Oriented X 3. No motor deficit. No sensory deficit. Moving all extermities. No slurred speech Medications Administered Generic Name Dose Route Start Last Admin Trade Name Freq PRN Reason Stop Dose Admin Calcium Gluconate 1 gm in 50 mls @ 50 mls/hr 03/14/25 17:32 03/14/25 17:56 Calcium Gluconate IV 03/14/25 18:31 50 mls/hr ONCE ONE Administration Discontinued Medications Generic Name Dose Route Start Last Admin Trade Name Freq PRN Reason Stop Dose Admin Dextrose 25 gm 03/14/25 17:32 03/14/25 17:53 Dextrose 50 % 25 Gm/50 Ml Syringe IVPUSH 03/14/25 17:33 25 gm ONCE ONE Administration Insulin Human Regular 5 unit 03/14/25 17:32 03/14/25 18:08 Insulin Regular, Human 100 Unit/Ml 10 Ml Vial IVPUSH 03/14/25 17:33 5 unit ONCE ONE Administration Ondansetron HCl 4 mg 03/14/25 17:40 03/14/25 17:49 Ondansetron Hcl 4 Mg/2 Ml Vial IVPUSH 03/14/25 17:41 4 mg ONCE ONE Administration Sodium Bicarbonate 50 meq 03/14/25 17:32 03/14/25 17:51 Sodium Bicarbonate 8.4% 50 Meq/50 Ml Syringe IVPUSH 03/14/25 17:33 50 meq ONCE ONE Administration Sodium Zirconium Cyclosilicate 10 gm 03/14/25 17:32 03/14/25 18:03 Sodium Zirconium Cyclosilicate 10 Gm Powd.Pack PO 03/14/25 17:33 10 gm ONCE ONE Administration Medical Decision Making Medical Decision Making [facility] Narrative: 29 years old with a history of end-stage renal disease. Missed his dialysis due to repeated bouts of diarrhea was diagnosed outpatient with C diff. presented today with having weakness after missing his dialysis. His last dialysis was on Saturday. About 4 days prior. Patient feels generally weak. Tired. Been having lots of diarrhea that was green in color. Feel very tired. His normal dialysis doctors Dr. Hicks. no coughing or congestion or upper respiratory symptoms. My interpretation patient's chest x-ray is grossly negative. His electrolytes came back with a potassium of 6.6 that was not hemolyzed. We did a stat EKG my interpretation the EKG showed a sinus rhythm heart rate was 80 AL QRS QTC normal no acute ST segment elevation in light of the elevated potassium we initiated treatment for his hyperkalemia which included calcium gluconate, insulin and glucose, bicarb, low count mind. Patient also was noted to have a low hemoglobin of 6.6. This is much lower than its baseline of about 10. His stool looks green. The stent out for guaiac. Question etiology of the anemia. Director Reactor Projects/ rotary shear cutter made aware. Will have patient get dialysis right now. Hospitalist team was consulted. Patient will require admission. Placed on a monitor. spoke with rotary shear cutter on for Dr. Hicks's group , she will arrange for dialysis Differential Diagnosis Differential Diagnoses: The differential diagnosis associated with the presentation includes Admission/Observation Consideration of admission/observation: Escalation of care including admission/observation considered Consult Healthcare Provider Management of the patient was discussed with: Hospitalist and Features Editor ( nephrology) Lab Data [facility] Lab Attestation statement: I reviewed the patient's lab results. 03/14/25 16:47 03/14/25 16:47 Labs: Lab Results 03/14/25 03/14/25 Range/Units 16:47 16:56 WBC 10.2 (4.8-10.8) X10*3/uL RBC 2.07 L D (4.60-5.80) X10*6/uL Hgb 6.7 L* D (14.0-18.0) g/dl Hct 19.4 L* D (42.0-52.0) % MCV 93.7 (80.0-98.0) fL MCH 32.4 (27.0-33.0) pg MCHC 34.5 (31.0-36.0) g/dl RDW 12.2 (11.0-16.0) % Plt Count 116 L (160-400) X10*3/uL MPV 10.3 (9.4-12.4) fL Immature Gran % (Auto) 0.5 H (0.0-0.4) % Neut % (Auto) 82.9 H (45-73) % Lymph % (Auto) 7.6 L (20-40) % Kingfisher % (Auto) 6.8 (2-11) % Eos % (Auto) 2.0 (0-4) % Baso % (Auto) 0.2 (0-2) % Lymph # (Auto) 0.8 L (1.2-4.9) X10*3/uL Kingfisher # (Auto) 0.7 (0.1-1.2) X10*3/uL Eos # (Auto) 0.2 (0.0-0.4) X10*3/uL Baso # (Auto) 0.0 (0.0-0.2) X10*3/uL Abs Immat Gran (auto) 0.05 H (0.00-0.03) X10*3/uL Absolute Neuts (auto) 8.5 H (2.0-8.3) x10*3/uL Absolute Nucleated RBC 0.000 (0.0-0.012) X10*3/uL Nucleated RBC % (auto) 0.0 (0.0-0.2) /100WBC Smear Tech's Comments VERIFIED VBG pH 7.50 H (7.32-7.43) VBG pCO2 33 mmHg VBG pO2 78 mmHg VBG HCO3 26 (22-26) mmol/L VBG O2 Saturation TNP VBG Base Excess 3.7 mmol/L Sodium 142 (135-145) mmol/L Potassium 6.6 H* D (3.3-5.1) mmol/L Chloride 101 (96-108) mmol/L Carbon Dioxide 24 (22-29) mmol/L Anion Gap 24 H (12-20) BUN 85 H (9-16) mg/dL Creatinine 15.69 H* (0.5-1.4) mg/dL Estim Creat Clear Calc 8.6 Estimated GFR 4 Random Glucose 93 (60-115) mg/dL Calcium 8.2 L D (8.4-10.2) mg/dL Phosphorus 4.5 (2.7-4.5) mg/dL Magnesium 1.7 (1.6-2.6) mg/dL Total Bilirubin 0.5 (0.0-1.0) mg/dL Direct Bilirubin 0.2 (0.0-0.5) mg/dL AST 19 (5-37) U/L ALT 14 (0-40) U/L Alkaline Phosphatase 160 H (39-117) U/L Troponin I High Sens 40.4 H (<3.5-35.0) ng/L B-Natriuretic Peptide 1721 H (<100) pg/mL Total Protein 6.1 L (6.5-8.0) g/dL Albumin 4.1 (3.5-5.0) g/dL Independent Interpretation I performed an independent interpretation of an: EKG ( my interpretation patient's EKG as above.) and Plain X-Ray ( My interpretation patient's chest x-ray was grossly negative) Radiology Impression Discussion of test interpretation with radiology: I have reviewed the radiologist's reading. External Record Review External record reviewed: Inpatient record Social Determinants Patient?s care significantly limited by Social Determinants of Health including: Alcoholism and drug addiction in family and Problems related to primary support group Critical Care Time Critical Care Time Critical Care Time: Yes Total Critical Care Time: 40 Attestation: I have personally provided 40 minutes of critical care time exclusive of time spent on separately billable procedures. Time includes review of lab data, radiology results, discussion with consultants, and monitoring for potential decompensation. Interventions were performed as documented above Discharge Plan Discharge Clinical Impression: Anemia, Acute hyperkalemia, Renal failure Patient Disposition: Admitted As Inpatient Print Language: [place]
[2025-03-14 16:59] LABS: Eosinophils Absolute Auto 0.2 X10*3/uL (0.0-0.4); Lymphocytes Absolute Auto 0.8 X10*3/uL (1.2-4.9); PLT CLUMP 1; SCAN SMEAR FLAG 1
[2025-03-14 17:01] LABS: Basophils Percent Auto 0.2 % (0-2); Imm Gran Abs Auto 0.05 X10*3/uL (0.00-0.03); Imm Gran Pct Auto 0.5 % (0.0-0.4); Lymphocytes Percent Auto 7.6 % (20-40); MANUAL DIFF FLAG SCAN; Mean Corpuscular HGB Conc 34.5 g/dl (31.0-36.0); Mean Corpuscular Hemoglobin 32.4 pg (27.0-33.0); Mean Corpuscular Volume 93.7 fL (80.0-98.0); Mean Platelet Volume 10.3 fL (9.4-12.4); Monocytes Absolute Auto 0.7 X10*3/uL (0.1-1.2); Monocytes Percent Auto 6.8 % (2-11); Neutrophils Absolute Auto 8.5 x10*3/uL (2.0-8.3); Neutrophils Percent Auto 82.9 % (45-73); Red Blood Count 2.07 X10*6/uL (4.60-5.80); Red Cell Distribution Width 12.2 % (11.0-16.0)
[2025-03-14 17:04] LABS: Platelet Count 116 X10*3/uL (160-400); White Blood Count 10.2 X10*3/uL (4.8-10.8)
[2025-03-14 17:07] LABS: VBG Base Excess 3.7 mmol/L; VBG HCO3 26 mmol/L (22-26); VBG pCO2 33 mmHg; VBG pO2 78 mmHg
[2025-03-14 17:08] LABS: Venous Blood Gas Refer to POC result
[2025-03-14 17:09] LABS: Hematocrit 19.4 % (42.0-52.0); Hemoglobin 6.7 g/dl (14.0-18.0)
[2025-03-14 17:20] LABS: B Type Natriuretic Peptide 1721 pg/mL (<100)
[2025-03-14 17:21] LABS: Troponin-I High Sensitivity 40.4 ng/L (<3.5-35.0)
[2025-03-14 17:34] LABS: Alanine Aminotransferase 14 U/L (0-40); Albumin Level 4.1 g/dL (3.5-5.0); Alkaline Phosphatase 160 U/L (39-117); Anion Gap 24 (12-20); Aspartate Amino Transferase 19 U/L (5-37); Bilirubin Direct 0.2 mg/dL (0.0-0.5); Bilirubin Total 0.5 mg/dL (0.0-1.0); Blood Urea Nitrogen 85 mg/dL (9-16); Calcium 8.2 mg/dL (8.4-10.2); Carbon Dioxide 24 mmol/L (22-29); Chloride 101 mmol/L (96-108); Creatinine Clr Calc Pharmacy 8.6; Estimated Glomerular Filt Rate 4; Glucose Random 93 mg/dL (60-115); Magnesium 1.7 mg/dL (1.6-2.6); Phosphorus 4.5 mg/dL (2.7-4.5); Potassium 6.6 mmol/L (3.3-5.1); Sodium 142 mmol/L (135-145); Total Protein 6.1 g/dL (6.5-8.0)
[2025-03-14 17:43] LABS: SLIDE REVIEW VERIFIED
[2025-03-14] MEDS: ondansetron HCL 4 MG/2 ML VIAL IVPUSH (17:49)
[2025-03-14] MEDS: Sodium Bicarbonate 8.4% 50 MEQ/50 ML SYRINGE IVPUSH (17:51)
[2025-03-14] MEDS: Dextrose 50 % 25 GM/50 ML SYRINGE IVPUSH (17:53)
[2025-03-14] MEDS: Calcium Gluconate/NaCl,Iso-Osm 1 GM/50 ML PLAST..BAG IV (17:56)
[2025-03-14] MEDS: Sodium Zirconium Cyclosilicate 10 GM POWD.PACK PO (18:03)
[2025-03-14] MEDS: Insulin Regular, Human 100 UNIT/ML 10 ML VIAL IVPUSH (18:08)
--- NOTE | 2025-03-14 18:15 | PC.NURSE ---
While at pts bedside admnistering medication, pt noted to have decre O2 sats 88 %, pt states his breathing is worsening. Pt placed on O2 @ 2L via NC O2 sats now 96%
[2025-03-14] MEDS: HYDROmorphone HCl 0.5 MG/0.5 ML SYRINGE IVPUSH (18:33)
--- NOTE | 2025-03-14 18:37 | W.PM.DNNEP ---
Subjective Subjective Date of Service: 03/14/25 This patient was seen during dialysis. Physical Exam Vital Signs: Vital Signs: Last Vital Signs Pulse 90 03/14/25 18:02 Resp 24 H 03/14/25 18:02 BP 168/107 H 03/14/25 18:02 Pulse Ox 92 03/14/25 18:02 O2 Del Method Nasal Cannula 03/14/25 18:02 O2 Flow Rate 2 03/14/25 18:02 BMI result Body Mass Index 31.9 Assessment & Plan Assessment and plan (1) Acute hyperkalemia: Status: Acute (2) ESRD (end stage renal disease): Status: Acute Plan Missed dialysis Last dialysis Saturday BP 180s K 6.7 Plan: HD 2 hours Heparin free Blood flow 400 Dialysate 600 K 1k Bicarboante 38 Calcium 2.5 UF: 2 liter + transfusion ON-call dialysis nurse informed Time Spent With Patient Time: Total time managing care of this patient today ____ minutes. Procedures Date of Service Date of Service: 03/14/25
--- NOTE | 2025-03-14 19:08 | PHA.MEDREC ---
Addendum entered by Lucia Felton [facility] ED 03/14/25 19:30: [facility] REVIEWED Original Note: Pharmacy Consult ? Medication Reconciliation Pharmacy has completed the medication reconciliation. Spoke with patient to confirm medications. No changes besides addition of metronidazole 500 mg q8h which he started Saturday and last took this morning, and increase in keppra dose. Patient reports he recently picked up new dose and is taking only 1 tab bid and an extra tablet after dialysis (MWF). Dose recently filled was on 03/10 for 250 mg tablets. Patient understands new dose is 750 mg but reports only taking one tab during his scheduled times of the new rx. Entered in dose patient is supposed to be on. He has a clonidine patch on now, he put it on Saturday morning. No claims for sevelamer but he reports he takes 3 tabs with his meals. He confirmed he takes alprazolam only as needed but up to bid. He reports he took all of his morning medications today.
--- NOTE | 2025-03-14 19:34 | PM.IMHP ---
History of Present Illness Date of Service: 03/14/25 Attending physician on admission: Zuri Mullins Chief Complaint: Shortness of breath Gary Burns is a very pleasant 29 years old man with past medical history significant for end-stage renal disease on hemodialysis, essential hypertension, anemia and seizure disorder presents to the emergency department complaining of shortness on breath with exertion and upon lying down. He also reported fatigue and generalized weakness. He denied any associated chest pain and palpitations. He was recently diagnosed with C diff (March 09) and has been taking Flagyl. He does complain of very occasional mild stomach pain and has been having nonbloody diarrhea. He denied recent use of NSAIDs and takes Tylenol at times. Last hemodialysis session was last Saturday and was completed without complications. He denied recent use of antibiotics except for Flagyl. Patient stated that he has been transfused in the past which he attributes to his renal disease. Denies blood in urine. He denied tobacco smoker but vapes cannabis. He denied alcohol abuse. He is a former illicit drug user. 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 Hicks. Patient is not taking blood thinners. In the ED, he was found to have tachypnea and elevated blood pressure. Last blood pressure is 168/107. O2 sats on room air are 90%, currently requiring 2 L/min supplemental oxygen via nasal cannula. Blood workup showed no leukocytosis. Hemoglobin is 6.79 hematocrit 19.4. Platelets are 116. VBG showed a pH of 7.50, pCO2 33 NaHCO3 26. Potassium 6.6. There are no significant electrolyte imbalances except for hyperkalemia, 6.6. LFTs are unremarkable except for elevated alk-phos, 160. Troponin is 40.4, BNP 1791 and normal albumin. C diff (03/09/2025) is positive. CXR showed no acute findings but cardiomegaly. ECG showed normal sinus rhythm, 81 bpm, no peaked T-waves. ED tx: Calcium gluconate 1 g IV, insulin R 5 units IV, D50 25 g IV, bicarb 50 mEq IV, Lokelma 10 g PO, Zofran 4 mg IV, Dilaudid 0.5 mg IV. Review of Systems Review of Systems: All 12 systems were reviewed and normal except as noted in HPI. [facility] Medical History Seizure disorder Syncope ESRD needing dialysis Drug abuse Normocytic anemia CKD (chronic kidney disease) Anemia HTN (hypertension) ESRD on dialysis End stage chronic kidney disease Bilateral lower extremity pain Back pain Family History Sister Substance use disorder Social History Household Members: Family Household Members Other:: mom, step dad, sister and nephew Housing: House Do you presently have visiting nurse or other home services: No Alcohol intake: unknown Comment: Pt refusing bed alarm Patient Tobacco Use Status: Current someday Tobacco user Tobacco use type: Smokeless Tobacco Smoked in Last 30 Days: No e-Cigarette/Vaping Use: Never Used Use of substances other than those prescribed or required for medical reasons: No Substance Use Type: Marijuana Advance Directives: Yes Advance Directives on File: Yes Advance Directives Date on File: 12/11/23 Do you have a plan to hurt others: No Plan service: No Cognitive needs: No Hearing needs: No Vision needs: No Meds Allergies Allergy/AdvReac Type Severity Reaction Status Date / Time ceftriaxone AdvReac Nausea and Verified 03/14/25 15:57 Vomiting lorazepam (From Ativan) AdvReac Shakiness Verified 03/14/25 15:57 metoclopramide (From Reglan) AdvReac Nausea Verified 03/14/25 15:57 Active Medications: Current Medications Acetaminophen (Acetaminophen 325 Mg Tablet) 650 mg PO Q6H PRN PRN Reason: Pain, Mild 1-3,fever,headache Calcium Carbonate (Calcium Carbonate 750 Mg Tab.Chew) 750 mg PO Q4H PRN PRN Reason: Heartburn Magnesium Hydroxide (Milk Of Magnesia 30 Ml Oral.Susp) 30 ml PO DAILY PRN PRN Reason: Constipation Melatonin (Melatonin 3 Mg Tablet) 6 mg PO BEDTIME PRN PRN Reason: Insomnia Pantoprazole Sodium (Pantoprazole Sodium 40 Mg/10 Ml Vial) 80 mg IVPUSH ONCE ONE Stop: 03/14/25 19:30 Pantoprazole Sodium (Pantoprazole Sodium 40 Mg/10 Ml Vial) 40 mg IVPUSH BID@0630,1630 DENZEL Sodium Chloride (0.9 % Sodium Chloride Flush 3 Ml Syringe) 3 ml IVFLUSH QSHIFT DENZEL Vancomycin HCl (Vancomycin Hcl 125 Mg Capsule) 125 mg PO Q6H [facility] Stop: 03/24/25 19:29 Home Medications ?Medication ?Instructions ?Recorded ?Confirmed ?Last Taken ?Type atorvastatin 20 mg tablet 20 mg PO DAILY 03/13/23 03/14/25 02/28/25 History clonidine 0.3 mg/24 hr weekly 1 patch topical FR@0900 03/13/23 03/14/25 03/12/25 History transdermal patch gabapentin 100 mg capsule 200 mg PO BID 03/13/23 03/14/25 02/28/25 History ketoconazole 2 % topical cream 1 appl topical DAILY PRN Rash 03/13/23 03/14/25 Unknown History sennosides 8.6 mg-docusate sodium 2 tab PO BID PRN Constipation 03/13/23 03/14/25 02/28/25 History 50 mg tablet (Senna Plus) sertraline 50 mg tablet 50 mg PO DAILY 03/13/23 03/14/25 02/28/25 History sevelamer carbonate 800 mg tablet 2,400 mg PO TIDWMEAL 03/13/23 03/14/25 02/28/25 History losartan 100 mg tablet 100 mg PO BID 02/24/24 03/14/25 02/28/25 History nitroglycerin 0.4 mg sublingual 0.4 mg sublingual Q5M PRN Chest 02/24/24 03/14/25 Unknown History tablet Pain alprazolam 0.5 mg tablet,extended 0.5 mg PO BID PRN Anxiety 02/26/25 03/14/25 Unknown History release 24 hr buspirone 15 mg tablet 15 mg PO BID 02/26/25 03/14/25 02/28/25 History carvedilol 12.5 mg tablet 25 mg PO BID 02/26/25 03/14/25 02/28/25 History hydrocortisone 2.5 % topical cream 1 appl topical DAILY PRN Rash 02/26/25 03/14/25 Unknown History trazodone 50 mg tablet 50 mg PO BEDTIME PRN Sleep 02/26/25 03/14/25 02/28/25 History vitamin B complex and vitamin C 1 cap PO BEDTIME 03/01/25 03/14/25 02/27/25 History no.20-folic acid 1 mg capsule (Triphrocaps) levetiracetam 250 mg tablet 750 mg PO BID@0900,2100 03/14/25 03/14/25 Unknown History levetiracetam 250 mg tablet 750 mg PO MOWEFR@1600 after 03/14/25 03/14/25 Unknown History dialysis loperamide 2 mg tablet 2 mg PO BID PRN Loose Stool 03/14/25 03/14/25 Unknown History (Anti-Diarrheal (loperamide)) metronidazole 500 mg tablet 500 mg PO Q8H 03/14/25 03/14/25 03/14/25 History Physical Exam Vital Signs and Narrative: Vital Signs: Last Vital Signs Pulse 90 03/14/25 18:02 Resp 24 H 03/14/25 18:02 BP 168/107 H 03/14/25 18:02 Pulse Ox 92 03/14/25 18:02 O2 Del Method Nasal Cannula 03/14/25 18:02 O2 Flow Rate 2 03/14/25 18:02 BMI result Body Mass Index 31.9 Constitutional - Awake and Alert, No apparent distress. Nasal cannula in place. Very pleasant and cooperative. HEENT - PER, EOMI. No sclerae icterus. Moist oral mucosa. Hard - S1S2, RRR, No murmurs Lungs - Normal lung expansion, Normal respiratory effort, No respiratory distress, CTA bilaterally Abdomen - NT / ND; +BS; No rebound or guarding Extremities - no calf tenderness bilaterally, no swelling Musculoskeletal - Normal inspection, normal ROM Skin - Warm/Dry. Pallor. Neurological - Alert & oriented x3. No focal weakness grossly noted. Normal speech. Psychological - Appropriate affect Results Labs 03/14/25 16:47 03/14/25 16:47 Labs: Laboratory Results - last 24 hr 03/14/25 03/14/25 03/14/25 16:47 16:56 17:32 MCV 93.7 MCH 32.4 MCHC 34.5 RDW 12.2 Plt Count 116 L MPV 10.3 Immature Gran % (Auto) 0.5 H Neut % (Auto) 82.9 H Lymph % (Auto) 7.6 L Cassia % (Auto) 6.8 Eos % (Auto) 2.0 Baso % (Auto) 0.2 Lymph # (Auto) 0.8 L Cassia # (Auto) 0.7 Eos # (Auto) 0.2 Baso # (Auto) 0.0 Abs Immat Gran (auto) 0.05 H Absolute Neuts (auto) 8.5 H Absolute Nucleated RBC 0.000 Nucleated RBC % (auto) 0.0 Smear Tech's Comments VERIFIED VBG pH 7.50 H VBG pCO2 33 VBG pO2 78 VBG HCO3 26 VBG O2 Saturation TNP VBG Base Excess 3.7 Anion Gap 24 H Estim Creat Clear Calc 8.6 Estimated GFR 4 Random Glucose 93 Calcium 8.2 L D Phosphorus 4.5 Magnesium 1.7 Total Bilirubin 0.5 Direct Bilirubin 0.2 AST 19 ALT 14 Alkaline Phosphatase 160 H Troponin I High Sens 40.4 H B-Natriuretic Peptide 1721 H Total Protein 6.1 L Albumin 4.1 Blood Type O Positive Antibody Screen NEGATIVE Crossmatch See Detail Assessment and Plan (1) Uncontrolled hypertension: Status: Acute (2) Acute hyperkalemia: Status: Resolved Plan Gary Burns is a 29 y/o man admitted with: Severe anemia Hgb 11.1---> 6.7 (over last 12 days). Admit to hospitalist service. Telemetry. PRBC transfusion (total 2 units requested for now). Continue to monitor H&H closely. Protonix 80 mg IV now then 40 mg IV daily. Anemia workup: Retic count, ferritin, TIBC, iron level, vitamin B12, folate and stool for occult blood. HyperKalemia. Missed last HD session. ECG showed no peaked T-waves. Received calcium gluconate, bicarb, Lokelma, insulin R and D50. Recheck potassium level now. Dr. [place] contacted by ED and will be dialyzed tonight. ESRD on HD. Missed last hemodialysis. Low-salt diet, low-potassium and fluid restriction. Nephrology consult for inpatient hemodialysis. C diff infection, 1st episode. No abdominal pain or distention. Contact precautions. Start vancomycin 125 mg PO QID for 10 days. Elevated troponin and BNP. Likely secondary to end-stage renal disease. Denied chest pain. CXR showed cardiomegaly. Recheck troponin. February 26, 2025 -normal LV, EF 55-60% small pericardial effusion near the left ventricle and no significant valve disease. Thrombocytopenia, chronic. Continue to monitor. Essential hypertension. On clonidine patches, losartan and carvedilol. Seizure disorder. Continue Keppra. Hyperlipidemia. Continue atorvastatin. Mood disorder/insomnia. Continue BuSpar,, alprazolam, trazodone and melatonin. DVT prophylaxis: SCDs. Code status: Full Patient will need hospitalization for at least 2 midnights for severe anemia and hypokalemia treatment with PRBC transfusion and urgent hemodialysis. Quality Stroke Does the patient have a stroke diagnosis?: No VTE Prior VTE?: No VTE Risk Level:: Medical - moderate - high VTE Device Contraindication: N/A - Device Ordered VTE Drug Contraindication: Treatment Not Indicated
--- NOTE | 2025-03-14 19:55 | PC.NURSE ---
patient transported to dialysis with this RN. inside sales director at bedside to assist with transfusion but dual sign completed with floor RN. Patient vitals rechecked. Patient alert and oriented speaking clear full sentences. 1 unit PRBC infusing through with dialysis.
[2025-03-14 19:56] LABS: Iron 51 mcg/dL (45-160); Percent Iron Saturation 28 % (15-50); Total Iron Binding Capacity 180 mcg/dL (228-428); Unsaturated Iron Binding 129 ug/dL
[2025-03-14 20:10] LABS: Immature Retic Fraction 21.7 % (2.3-13.4); Retic HGB Equivalent 37.1 pg (30.0-35.0); Reticulocyte Percent 0.9 % (0.5-1.8); Reticulocytes Absolute 0.018 X10*6/uL (0.026-0.095)
--- NOTE | 2025-03-14 20:45 | PC.NURSE ---
Patient completed first unit of PRBC in diaylsis with RN. RN completed post infusion vital signs and reported back to RN in ED.
--- NOTE | 2025-03-14 23:25 | PC.NURSE ---
assumed care of pt, Per Candy ARGUELLO hold off on second unit of blood until repeat labs are drawn
[2025-03-14 23:34] LABS: MANUAL DIFF FLAG NO
[2025-03-14 23:35] LABS: Basophils Percent Auto 0.3 % (0-2); Eosinophils Absolute Auto 0.2 X10*3/uL (0.0-0.4); Eosinophils Percent Auto 2.4 % (0-4); Hematocrit 21.4 % (42.0-52.0); Hemoglobin 7.5 g/dl (14.0-18.0); Imm Gran Abs Auto 0.03 X10*3/uL (0.00-0.03); Imm Gran Pct Auto 0.4 % (0.0-0.4); Lymphocytes Absolute Auto 0.9 X10*3/uL (1.2-4.9); Lymphocytes Percent Auto 12.3 % (20-40); Mean Corpuscular Hemoglobin 32.2 pg (27.0-33.0); Mean Corpuscular Volume 91.8 fL (80.0-98.0); Mean Platelet Volume 9.4 fL (9.4-12.4); Monocytes Absolute Auto 0.7 X10*3/uL (0.1-1.2); Monocytes Percent Auto 9.4 % (2-11); Neutrophils Absolute Auto 5.7 x10*3/uL (2.0-8.3); Neutrophils Percent Auto 75.2 % (45-73); Platelet Count 109 X10*3/uL (160-400); Red Blood Count 2.33 X10*6/uL (4.60-5.80); Red Cell Distribution Width 12.6 % (11.0-16.0); White Blood Count 7.6 X10*3/uL (4.8-10.8)
[2025-03-14] MEDS: Acetaminophen 325 MG TABLET 650 MG PO (23:37)
[2025-03-14] MEDS: Multivitamin TABLET 1 TAB PO (23:37)
[2025-03-14] MEDS: levETIRAcetam 250 MG TABLET 750 MG PO (23:38)
[2025-03-14] MEDS: busPIRone HCl 5 MG TABLET 15 MG PO (23:38)
[2025-03-14] MEDS: Gabapentin 100 MG CAPSULE 200 MG PO (23:38)
[2025-03-14] MEDS: carvediloL 25 MG TABLET PO (23:38)
[2025-03-14] MEDS: Losartan Potassium 50 MG TABLET 100 MG PO (23:38)
[2025-03-14] MEDS: Pantoprazole Sodium 40 MG/10 ML VIAL 80 MG IVPUSH (23:39)
[2025-03-14] MEDS: vancomycin HCL 125 MG CAPSULE PO (23:41)
--- NOTE | 2025-03-14 23:43 | PC.NURSE ---
pt returned from dialysis at this time, pt medicated per mar with night time medications, tolerated whole well with water
[2025-03-14 23:47] LABS: Potassium 3.8 mmol/L (3.3-5.1)
[2025-03-15] VITALS (7 sets, daily range): BP systolic 143–192; BP diastolic 78–115; PULSE 78–85; RESP 16–20; TEMP 36.6–36.9; O2SAT 93–96; BMI 30.2
[2025-03-15] LABS: Troponin-I High Sensitivity 36.7 ng/L (<3.5-35.0)
[2025-03-15 00:04] LABS: Anion Gap 20 (12-20); Blood Urea Nitrogen 52 mg/dL (9-16); Calcium 9.2 mg/dL (8.4-10.2); Carbon Dioxide 29 mmol/L (22-29); Chloride 98 mmol/L (96-108); Creatinine Clr Calc Pharmacy 12.4; Estimated Glomerular Filt Rate 6; Glucose Random 91 mg/dL (60-115); Potassium 3.7 mmol/L (3.3-5.1); Sodium 143 mmol/L (135-145)
[2025-03-15 00:29] LABS: Folate 3.6 ng/mL (> or = 4.0); Vitamin B12 236 pg/mL (200-900)
[2025-03-15] MEDS: Ketorolac Tromethamine 15 MG/ML VIAL IVPUSH (01:39)
--- NOTE | 2025-03-15 01:59 | PC.NURSE ---
provider Candy POACHER OPERATOR at bedside and discussed further pain medication for headache. Pt medicated with toradol per NOV.
[2025-03-15 05:11] LABS: Anion Gap 18 (12-20); Blood Urea Nitrogen 55 mg/dL (9-16); Calcium 8.4 mg/dL (8.4-10.2); Carbon Dioxide 31 mmol/L (22-29); Chloride 99 mmol/L (96-108); Creatinine Clr Calc Pharmacy 11.3; Estimated Glomerular Filt Rate 5; Glucose Random 118 mg/dL (60-115); Potassium 4.2 mmol/L (3.3-5.1); Sodium 144 mmol/L (135-145)
[2025-03-15] MEDS: Pantoprazole Sodium 40 MG/10 ML VIAL IVPUSH ×2 (06:11→14:51)
--- NOTE | 2025-03-15 06:14 | PC.NURSE ---
pt medicated per MAR. Pt asks for a different pain medication. Advised RN will discuss with admitting physician.
--- NOTE | 2025-03-15 06:15 | PC.NURSE ---
pt taken to dialysis at this time.
--- NOTE | 2025-03-15 07:22 | PC.NURSE ---
report obtained from overnight cashier nurses, pt currently in dialysis, will let hub know as he is scheduled for a tele bed
--- NOTE | 2025-03-15 08:07 | PC.NURSE ---
this nurse ever saw the patient as he was in dialysis, pt was given a bed while in dialysis, report was placed in [facility] by prior nurse.
[2025-03-15] MEDS: vancomycin HCL 125 MG CAPSULE PO ×2 (09:01→14:51)
[2025-03-15] MEDS: Acetaminophen 325 MG TABLET 650 MG PO (09:01)
[2025-03-15] MEDS: 0.9 % Sodium Chloride Flush 3 ML SYRINGE IVFLUSH ×2 (09:05→14:51)
--- NOTE | 2025-03-15 09:12 | PM.PNNEP ---
Subjective Subjective Date of Service: 03/15/25 Physical Exam Vital Signs: Vital Signs: Last Vital Signs Temp 98.1 F 03/15/25 06:10 Pulse 81 03/15/25 06:10 Resp 16 03/15/25 06:10 BP 150/91 H 03/15/25 06:10 Pulse Ox 93 03/15/25 06:10 O2 Del Method Room Air 03/15/25 06:10 O2 Flow Rate 2 03/14/25 18:02 BMI result Body Mass Index 31.9 cvs: s1s2 Rs; cta ABd; soft Objective Data Labs 03/15/25 14:29 03/15/25 04:28 Labs: Laboratory Results - last 24 hr 03/14/25 03/14/25 03/14/25 16:47 16:56 17:32 WBC 10.2 RBC 2.07 L D Hgb 6.7 L* D Hct 19.4 L* D MCV 93.7 MCH 32.4 MCHC 34.5 RDW 12.2 Plt Count 116 L MPV 10.3 Immature Gran % (Auto) 0.5 H Neut % (Auto) 82.9 H Lymph % (Auto) 7.6 L Newton % (Auto) 6.8 Eos % (Auto) 2.0 Baso % (Auto) 0.2 Lymph # (Auto) 0.8 L Newton # (Auto) 0.7 Eos # (Auto) 0.2 Baso # (Auto) 0.0 Abs Immat Gran (auto) 0.05 H Absolute Neuts (auto) 8.5 H Absolute Nucleated RBC 0.000 Nucleated RBC % (auto) 0.0 Smear Tech's Comments VERIFIED Absolute Retic 0.018 L Percent Retic 0.9 Immature Retic Fraction 21.7 H Retic Hgb Equivalent 37.1 H VBG pH 7.50 H VBG pCO2 33 VBG pO2 78 VBG HCO3 26 VBG O2 Saturation TNP VBG Base Excess 3.7 Sodium 142 Potassium 6.6 H* D Chloride 101 Carbon Dioxide 24 Anion Gap 24 H BUN 85 H Creatinine 15.69 H* Estim Creat Clear Calc 8.6 Estimated GFR 4 Random Glucose 93 Calcium 8.2 L D Phosphorus 4.5 Magnesium 1.7 Iron 51 TIBC 180 L % Saturation 28 Unsat Iron Binding 129 Total Bilirubin 0.5 Direct Bilirubin 0.2 AST 19 ALT 14 Alkaline Phosphatase 160 H Troponin I High Sens 40.4 H B-Natriuretic Peptide 1721 H Total Protein 6.1 L Albumin 4.1 Vitamin B12 Folate Blood Type O Positive Antibody Screen NEGATIVE Crossmatch See Detail 03/14/25 03/14/25 03/14/25 18:22 23:28 23:28 WBC 7.6 RBC 2.33 L Hgb 7.5 L Hct 21.4 L MCV 91.8 MCH 32.2 MCHC 35.0 RDW 12.6 Plt Count 109 L MPV 9.4 Immature Gran % (Auto) 0.4 Neut % (Auto) 75.2 H Lymph % (Auto) 12.3 L Newton % (Auto) 9.4 Eos % (Auto) 2.4 Baso % (Auto) 0.3 Lymph # (Auto) 0.9 L Newton # (Auto) 0.7 Eos # (Auto) 0.2 Baso # (Auto) 0.0 Abs Immat Gran (auto) 0.03 Absolute Neuts (auto) 5.7 Absolute Nucleated RBC 0.000 Nucleated RBC % (auto) 0.0 Smear Tech's Comments Absolute Retic Percent Retic Immature Retic Fraction Retic Hgb Equivalent VBG pH VBG pCO2 VBG pO2 VBG HCO3 VBG O2 Saturation VBG Base Excess Sodium 143 Potassium 3.8 D 3.7 Chloride 98 Carbon Dioxide 29 Anion Gap 20 BUN 52 H Creatinine 10.97 H* Estim Creat Clear Calc 12.4 Estimated GFR 6 Random Glucose 91 Calcium 9.2 D Phosphorus Magnesium Iron TIBC % Saturation Unsat Iron Binding Total Bilirubin Direct Bilirubin AST ALT Alkaline Phosphatase Troponin I High Sens 36.7 H B-Natriuretic Peptide Total Protein Albumin Vitamin B12 236 Folate 3.6 L Blood Type Antibody Screen Crossmatch 03/15/25 04:28 WBC RBC Hgb Hct MCV MCH MCHC RDW Plt Count MPV Immature Gran % (Auto) Neut % (Auto) Lymph % (Auto) Newton % (Auto) Eos % (Auto) Baso % (Auto) Lymph # (Auto) Newton # (Auto) Eos # (Auto) Baso # (Auto) Abs Immat Gran (auto) Absolute Neuts (auto) Absolute Nucleated RBC Nucleated RBC % (auto) Smear Tech's Comments Absolute Retic Percent Retic Immature Retic Fraction Retic Hgb Equivalent VBG pH VBG pCO2 VBG pO2 VBG HCO3 VBG O2 Saturation VBG Base Excess Sodium 144 Potassium 4.2 Chloride 99 Carbon Dioxide 31 H Anion Gap 18 BUN 55 H Creatinine 12.04 H* Estim Creat Clear Calc 11.3 Estimated GFR 5 Random Glucose 118 H Calcium 8.4 D Phosphorus Magnesium Iron TIBC % Saturation Unsat Iron Binding Total Bilirubin Direct Bilirubin AST ALT Alkaline Phosphatase Troponin I High Sens B-Natriuretic Peptide Total Protein Albumin Vitamin B12 Folate Blood Type Antibody Screen Crossmatch Procedures Date of Service Date of Service: 03/15/25 Assessment & Plan Assessment and plan (1) ESRD (end stage renal disease): Status: Acute Plan Mr. 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 ESRD Dialyzed at [facility] via [facility] Permcath 2. HTN Managed on Losartan 100mg, Coreg 25mg BID Hydralazine 25mg TID prn, and Clonidine patch 0.3 q 7 days Plan: - HD saturday for 2 hour - next iHD session will be as scheduled MWF - Renal restricted diet - antihypertensives as above - sevelamer tid meal - on keppra mwf bid - on mircera q 2weeks in HDU, will need epo if staying > 2 days Time Spent With Patient Time: Total time managing care of this patient today ____ minutes. Progress Note: Quality Stroke Does the patient have a stroke diagnosis?: No
[2025-03-15] MEDS: busPIRone HCl 5 MG TABLET 15 MG PO (10:38)
[2025-03-15] MEDS: ALPRAZolam 0.5 MG TABLET PO (10:38)
[2025-03-15] MEDS: Gabapentin 100 MG CAPSULE 200 MG PO (10:39)
[2025-03-15] MEDS: Sertraline HCL 50 MG TABLET PO (10:39)
--- NOTE | 2025-03-15 11:01 | CONS_ITS ---
DATE OF SERVICE: 03/15/2025 REFERRING PHYSICIAN: Dr. Francisco J Mullins REASON FOR CONSULTATION: Anemia. HISTORY OF PRESENT ILLNESS: The patient is a pleasant 29-year-old man with a history of end-stage renal disease, on hemodialysis, who was admitted to the hospital after presenting to the emergency room with shortness of breath. He was diagnosed recently with C diff and treated with metronidazole. He had some diarrhea that was nonbloody and some epigastric pain, but denies any rectal bleeding. He has no history of peptic ulcer disease and reports bowel movements were normal the day prior to admission. He was treated with Flagyl for his C diff infection. He denies recent antibiotic usage. In the emergency department, he was noted to be anemic with a hematocrit of 19.4, which was treated with blood transfusion x2 units. He has had no bleeding since admission. He does describe a long history of anemia and states he has been evaluated with this through his primary primary products inspectors. He has no history of prior GI blood loss and has not undergone upper endoscopy or colonoscopy. PAST MEDICAL HISTORY: 1. End-stage renal disease, on hemodialysis. 2. History of substance abuse. 3. Hypertension. 4. Anemia. 5. Seizure disorder. 6. Back pain. CURRENT MEDICATIONS: His current medication list is reviewed in the chart. ALLERGIES: MULTIPLE MEDICATION ALLERGIES ARE REVIEWED. FAMILY HISTORY: This is reviewed with the patient and it is noncontributory. SOCIAL HISTORY: There is a history of tobacco use. He denies current substance abuse. REVIEW OF SYSTEMS: SKIN: No pruritus. HEENT: Negative. CARDIOPULMONARY: No shortness of breath or chest pain. GASTROINTESTINAL: As above. GENITOURINARY: Negative. NEUROPSYCHIATRIC: Negative. PHYSICAL EXAMINATION: GENERAL: Reveals a pleasant male, lying comfortably in bed, undergoing hemodialysis through his left fistula. SKIN: Anicteric. HEENT: Shows no scleral icterus. NECK: Without lymphadenopathy or thyromegaly. LUNGS: Clear. HEART: Shows a regular rate and rhythm. S1, S2. No murmur. ABDOMEN: Soft without focal masses or tenderness. Bowel sounds are present. No organomegaly is noted. EXTREMITIES: Without edema. LABORATORY DATA: Reviewed. His hematocrit after transfusion improved to 21.4. His baseline looks to be around the mid 20s. Previous iron studies on March 14 have shown an iron saturation of 28%. Imaging with chest x-ray was done on admission and showed no acute findings except for cardiomegaly. Previous CT scan of the abdomen and pelvis in 2022 showed some possible proctitis. IMPRESSION: Anemia. At this time, he has no signs or symptoms of GI blood loss, and I have not recommended further evaluation. I agree with treating him with blood transfusion as you are doing. Hematology consultation and further evaluation with his primary products inspectors may help elucidate the etiology of his anemia. This does not appear to be gastrointestinal-related based on his current presentation. I discussed this with him stool specimens for occult blood have been negative in the past in 2022 and have been requested. Thanks for asking me to see him. I will follow him as needed. MD BECKI Novoa/BALA / [phone]
[2025-03-15] MEDS: Losartan Potassium 50 MG TABLET 100 MG PO (11:44)
[2025-03-15] MEDS: levETIRAcetam 250 MG TABLET 750 MG PO ×2 (11:44→14:52)
[2025-03-15] MEDS: Sevelamer Carbonate Tablet 800 MG TABLET 2400 MG PO ×2 (11:44→17:10)
[2025-03-15] MEDS: Atorvastatin Calcium 20 MG TABLET PO (11:44)
[2025-03-15] MEDS: carvediloL 25 MG TABLET PO (11:44)
[2025-03-15] MEDS: Butalb/Acetamin/Caff 50/325/40 TABLET 1 TAB PO (11:53)
[2025-03-15 14:35] LABS: Hemoglobin 9.8 g/dl (14.0-18.0); Mean Corpuscular Hemoglobin 31.7 pg (27.0-33.0); Mean Corpuscular Volume 90.6 fL (80.0-98.0); Mean Platelet Volume 9.3 fL (9.4-12.4); Platelet Count 117 X10*3/uL (160-400); Red Blood Count 3.09 X10*6/uL (4.60-5.80); Red Cell Distribution Width 13.7 % (11.0-16.0); White Blood Count 7.1 X10*3/uL (4.8-10.8)
[2025-03-15] MEDS: Ondansetron ODT 4 MG TAB.RAPDIS TRANSLINGU (14:51)
--- NOTE | 2025-03-15 16:30 | MHC.CM.PN ---
PT REPORTS HE LIVES WITH HIS MOTHER, STEP FATHER, SISTER AND NEPHEW HIS SISTER WORKS HIS LANGUAGE INSTRUCTOR AND PROVIDES CARE DAILY HE USES A CANE FOR DME HCP ON FILE PCP: JANICE NELSON IMM DELIVERED DCP: HOME RESUME LANGUAGE INSTRUCTOR FAMILY TO TRANSPORT
--- NOTE | 2025-03-15 16:50 | W.PM.IDCN ---
History of Present Illness Data of Consult Service Date: 03/15/25 Requesting physician: Yuriy Lundy Primary Care Provider: Pillo Trejo PRODUCTION EXPEDITER- HPI Reason for consult: Cdiff diarrhea He presents with weakness and shortness of breath. He missed his dialysis 03/12 and now has symptoms He has diarrhea and has Cdiff toxin gene positive. He has no fever or chills but bowel movements 4-5 times a day. [facility] Past Medical History Medical History Seizure disorder Syncope ESRD needing dialysis Drug abuse Normocytic anemia CKD (chronic kidney disease) Anemia HTN (hypertension) ESRD on dialysis End stage chronic kidney disease Bilateral lower extremity pain Back pain Family History Family History Sister Substance use disorder Social History Social History Household Members: Family Household Members Other:: mom, step dad, sister and nephew Housing: House Do you presently have visiting nurse or other home services: Yes (sister is digital publishing specialist) Alcohol intake: unknown Comment: Pt refusing bed alarm Patient Tobacco Use Status: Former Tobacco user Tobacco use type: Smokeless Tobacco e-Cigarette/Vaping Use: Never Used Substance Use Type: Marijuana Advance Directives Date on File: 12/11/23 service: No Cognitive needs: No Hearing needs: No Vision needs: No Meds Allergies Allergy/AdvReac Type Severity Reaction Status Date / Time ceftriaxone AdvReac Nausea and Verified 03/14/25 15:57 Vomiting lorazepam (From Ativan) AdvReac Shakiness Verified 03/14/25 15:57 metoclopramide (From Reglan) AdvReac Nausea Verified 03/14/25 15:57 Active Medications: Current Medications Acetaminophen (Acetaminophen 325 Mg Tablet) 650 mg PO Q6H PRN PRN Reason: Pain, Mild 1-3,fever,headache Last Admin: 03/15/25 09:01 Dose: 650 mg Acetaminophen/Butalbital/Caffeine (Butalb/Acetamin/Caff 50/325/40 Tablet) 1 tab PO Q4H PRN PRN Reason: Headache Last Admin: 03/15/25 11:53 Dose: 1 tab Alprazolam (Alprazolam 0.5 Mg Tablet) 0.5 mg PO BID PRN PRN Reason: Anxiety Last Admin: 03/15/25 10:38 Dose: 0.5 mg Atorvastatin Calcium (Atorvastatin Calcium 20 Mg Tablet) 20 mg PO DAILY [facility] Last Admin: 03/15/25 11:44 Dose: 20 mg Buspirone HCl (Buspirone Hcl 5 Mg Tablet) 15 mg PO BID [facility] Last Admin: 03/15/25 10:38 Dose: 15 mg Calcium Carbonate (Calcium Carbonate 750 Mg Tab.Chew) 750 mg PO Q4H PRN PRN Reason: Heartburn Carvedilol (Carvedilol 25 Mg Tablet) 25 mg PO BID [facility]; Protocol Last Admin: 03/15/25 11:44 Dose: 25 mg Clonidine (Clonidine 0.3 Mg Patch.Tdwk) 0.3 mg TRANSDERMA FR@0900 [facility]; Protocol Gabapentin (Gabapentin 100 Mg Capsule) 200 mg PO BID [facility] Last Admin: 03/15/25 10:39 Dose: 200 mg Levetiracetam (Levetiracetam 250 Mg Tablet) 750 mg PO BID@0900,2100 [facility] Last Admin: 03/15/25 11:44 Dose: 750 mg Levetiracetam (Levetiracetam 250 Mg Tablet) 750 mg PO MOWEFR@1600 [facility] Last Admin: 03/15/25 14:52 Dose: 750 mg Losartan Potassium (Losartan Potassium 50 Mg Tablet) 100 mg PO BID [facility]; Protocol Last Admin: 03/15/25 11:44 Dose: 100 mg Magnesium Hydroxide (Milk Of Magnesia 30 Ml Oral.Susp) 30 ml PO DAILY PRN PRN Reason: Constipation Melatonin (Melatonin 3 Mg Tablet) 6 mg PO BEDTIME PRN PRN Reason: Insomnia Multivitamins/Vitamin C (Multivitamin Tablet) 1 tab PO BEDTIME [facility] Last Admin: 03/14/25 23:37 Dose: 1 tab Ondansetron HCl (Ondansetron Odt 4 Mg Tab.Rapdis) 4 mg TRANSLINGU Q8H PRN PRN Reason: Nausea and Vomiting Last Admin: 03/15/25 14:51 Dose: 4 mg Pantoprazole Sodium (Pantoprazole Sodium 40 Mg/10 Ml Vial) 40 mg IVPUSH BID@0630,1630 [facility] Last Admin: 03/15/25 14:51 Dose: 40 mg Senna/Docusate Sodium (Sennosides/Docusate Sodium Tablet) 2 tab PO BID PRN PRN Reason: Constipation Sertraline HCl (Sertraline Hcl 50 Mg Tablet) 50 mg PO DAILY [facility] Last Admin: 03/15/25 10:39 Dose: 50 mg Sevelamer Carbonate (Sevelamer Carbonate Tablet 800 Mg Tablet) 2,400 mg PO TIDWM [facility] Last Admin: 03/15/25 11:44 Dose: 2,400 mg Sodium Chloride (0.9 % Sodium Chloride Flush 3 Ml Syringe) 3 ml IVFLUSH QSHIFT [facility] Last Admin: 03/15/25 14:51 Dose: 3 ml Trazodone HCl (Trazodone Hcl 50 Mg Tablet) 50 mg PO BEDTIME PRN PRN Reason: Sleep Vancomycin HCl (Vancomycin Hcl 125 Mg Capsule) 125 mg PO Q6H [facility] Stop: 03/24/25 19:29 Last Admin: 03/15/25 14:51 Dose: 125 mg Home Medications ?Medication ?Instructions ?Recorded ?Confirmed ?Last Taken ?Type atorvastatin 20 mg tablet 20 mg PO DAILY 03/13/23 03/14/25 02/28/25 History clonidine 0.3 mg/24 hr weekly 1 patch topical FR@0900 03/13/23 03/14/25 03/12/25 History transdermal patch gabapentin 100 mg capsule 200 mg PO BID 03/13/23 03/14/25 02/28/25 History ketoconazole 2 % topical cream 1 appl topical DAILY PRN Rash 03/13/23 03/14/25 Unknown History sennosides 8.6 mg-docusate sodium 2 tab PO BID PRN Constipation 03/13/23 03/14/25 02/28/25 History 50 mg tablet (Senna Plus) sertraline 50 mg tablet 50 mg PO DAILY 03/13/23 03/14/25 02/28/25 History sevelamer carbonate 800 mg tablet 2,400 mg PO TIDWMEAL 03/13/23 03/14/25 02/28/25 History losartan 100 mg tablet 100 mg PO BID 02/24/24 03/14/25 02/28/25 History nitroglycerin 0.4 mg sublingual 0.4 mg sublingual Q5M PRN Chest 02/24/24 03/14/25 Unknown History tablet Pain alprazolam 0.5 mg tablet,extended 0.5 mg PO BID PRN Anxiety 02/26/25 03/14/25 Unknown History release 24 hr buspirone 15 mg tablet 15 mg PO BID 02/26/25 03/14/25 02/28/25 History carvedilol 12.5 mg tablet 25 mg PO BID 02/26/25 03/14/25 02/28/25 History hydrocortisone 2.5 % topical cream 1 appl topical DAILY PRN Rash 02/26/25 03/14/25 Unknown History trazodone 50 mg tablet 50 mg PO BEDTIME PRN Sleep 02/26/25 03/14/25 02/28/25 History vitamin B complex and vitamin C 1 cap PO BEDTIME 03/01/25 03/14/25 02/27/25 History no.20-folic acid 1 mg capsule (Triphrocaps) levetiracetam 250 mg tablet 750 mg PO BID@0900,2100 03/14/25 03/14/25 Unknown History levetiracetam 250 mg tablet 750 mg PO MOWEFR@1600 after 03/14/25 03/14/25 Unknown History dialysis loperamide 2 mg tablet 2 mg PO BID PRN Loose Stool 03/14/25 03/14/25 Unknown History (Anti-Diarrheal (loperamide)) metronidazole 500 mg tablet 500 mg PO Q8H 03/14/25 03/14/25 03/14/25 History Physical Exam Vital Signs: Vital Signs: Last Vital Signs Temp 97.9 F 03/15/25 15:11 Pulse 82 03/15/25 15:11 Resp 20 03/15/25 15:11 BP 155/101 H 03/15/25 15:11 Pulse Ox 94 03/15/25 15:11 O2 Del Method Room Air 03/15/25 15:11 O2 Flow Rate 2 03/14/25 18:02 BMI result Body Mass Index 30.2 Const: General: cooperative HEENT: Head: Yes normal to inspection Face and sinus: Yes normal facial exam Mouth: Normal oral and palatal mucosa present Teeth and gingiva: dentition normal Eyes: General: appearance normal, both eyes and all related structures Pupils: Equal, round and reactive pupils present Resp: Effort & Inspection: normal respiratory effort Cardio: Rate: regular rate Rhythm: regular rhythm GI: Palpation (GI): Soft to palpation and nontender : General: Yes no CVA tenderness Back/Spine/Pelvis: Back: no CVA tenderness Skin: General skin exam: no rashes or lesions noted Neuro: General: moves all extremities Cranial nerves: Yes Equal, round and reactive pupils present Extrem: General: Yes normal to inspection Psych: Appearance: grossly normal Results Labs 03/15/25 14:29 03/15/25 04:28 Labs: Short CBC 03/14/25 03/14/25 03/15/25 Range/Units 16:47 23:28 14:29 WBC 10.2 7.6 7.1 (4.8-10.8) X10*3/uL Hgb 6.7 L* D 7.5 L 9.8 L D (14.0-18.0) g/dl Hct 19.4 L* D 21.4 L 28.0 L D (42.0-52.0) % Plt Count 116 L 109 L 117 L (160-400) X10*3/uL BMP 03/14/25 03/14/25 03/14/25 16:47 23:28 23:28 Sodium 142 143 Potassium 6.6 H* D 3.8 D 3.7 Chloride 101 98 Carbon Dioxide 24 29 BUN 85 H 52 H Creatinine 15.69 H* 10.97 H* Calcium 8.2 L D 9.2 D 03/15/25 04:28 Sodium 144 Potassium 4.2 Chloride 99 Carbon Dioxide 31 H BUN 55 H Creatinine 12.04 H* Calcium 8.4 D Liver Function 03/14/25 Range/Units 16:47 Total Bilirubin 0.5 (0.0-1.0) mg/dL Direct Bilirubin 0.2 (0.0-0.5) mg/dL AST 19 (5-37) U/L ALT 14 (0-40) U/L Alkaline Phosphatase 160 H (39-117) U/L Albumin 4.1 (3.5-5.0) g/dL Assessment and Plan (1) ESRD (end stage renal disease): Status: Acute (2) Diarrhea: Status: Acute Plan First Cdiff per patient. Po Vancomycin 125 mg qid for 10 days.
--- NOTE | 2025-03-15 17:10 | PM.DS ---
DS: Providers Provider Date of Service: 03/15/25 Date of admission: 03/14/25 18:16 Date of discharge: 03/15/25 Primary care physician: NEL Garcia Consults: 03/14/25 18:12 Consult to Nephrology Routine Consulting Provider[facility] Reason for consultation: ESRD MWF, missed dialysis Saturday; H&H 6.7/19.4 03/14/25 18:15 Consult to Infectious Diseases Routine Consulting Provider: [facility] Reason for consultation: CDiff 03/14/25 18:23 Consult to Nephrology Stat Consulting Provider: Jeffery Hicks Reason for consultation: renal failure 03/14/25 19:57 Consult to Gastroenterology Routine Consulting Provider: Jacob Carbajal Reason for consultation: Severe anemia 11.1--> 6.7 Has provider been notified: No DS: Diagnosis Discharge Diagnosis (1) ESRD (end stage renal disease): Status: Acute (2) Diarrhea: Status: Acute DS: Summary Hospital Course Hospital Course: From admitting HPI: Date of Service: 03/14/25 Attending physician on admission: Zuri Mullins Chief Complaint: Shortness of breath Gary Burns is a very pleasant 29 years old man with past medical history significant for end-stage renal disease on hemodialysis, essential hypertension, anemia and seizure disorder presents to the emergency department complaining of shortness on breath with exertion and upon lying down. He also reported fatigue and generalized weakness. He denied any associated chest pain and palpitations. He was recently diagnosed with C diff (March 09) and has been taking Flagyl. He does complain of very occasional mild stomach pain and has been having nonbloody diarrhea. He denied recent use of NSAIDs and takes Tylenol at times. Last hemodialysis session was last Saturday and was completed without complications. He denied recent use of antibiotics except for Flagyl. Patient stated that he has been transfused in the past which he attributes to his renal disease. Denies blood in urine. He denied tobacco smoker but vapes cannabis. He denied alcohol abuse. He is a former illicit drug user. 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 Patient is not taking blood thinners. In the ED, he was found to have tachypnea and elevated blood pressure. Last blood pressure is 168/107. O2 sats on room air are 90%, currently requiring 2 L/min supplemental oxygen via nasal cannula. Blood workup showed no leukocytosis. Hemoglobin is 6.79 hematocrit 19.4. Platelets are 116. VBG showed a pH of 7.50, pCO2 33 NaHCO3 26. Potassium 6.6. There are no significant electrolyte imbalances except for hyperkalemia, 6.6. LFTs are unremarkable except for elevated alk-phos, 160. Troponin is 40.4, BNP 1791 and normal albumin. C diff (03/09/2025) is positive. CXR showed no acute findings but cardiomegaly. ECG showed normal sinus rhythm, 81 bpm, no peaked T-waves. ED tx: Calcium gluconate 1 g IV, insulin R 5 units IV, D50 25 g IV, bicarb 50 mEq IV, Lokelma 10 g PO, Zofran 4 mg IV, Dilaudid 0.5 mg IV. Hospital course: Pt was admitted to the hospital for hypertensive crisis, acute on chronic anemia, and electrolyte abnormalities secondary to missed dialysis on Saturday. Pt has been experiencing abdominal pain intractable diarrhea from C diff infection, and was unable to attend his normal dialysis session. Pt received partial dialysis yesterday and a full session today with resolution of electrolyte abnormalities and good effect on BP. Was as well transfused 2 units of PRBCs for anemia, and seen by GI who found no evidence for active bleeding. Repeat H&H post-dialysis was improved to 9 0.8/28.0. He was also seen by ID who recommended switching metronidazole to vancomycin p.o.. Reports last episode of diarrhea was over 24 hours ago. Patient's only complaint is of mild abdominal discomfort which is improved from prior. Pt wishes to be discharged. For ESRD, continue normal dialysis schedule. Should follow up outpatient with PCP in 1 week for repeat labs and routine post hospital follow up. For acute C diff colitis, stop metronidazole and instead take vancomycin 125 mg p.o. 4 times a day for the next 10 days. For HTN Continue clonidine, losartan, and carvedilol For seizure disorder, continue Keppra For hyperlipidemia continue statin For mood disorder/insomnia continue BuSpar, alprazolam, tramadol, and melatonin. Time Attestation Discharge Coordination Time (in mins): 35 Quality: Safe Use of Opioids Does Pt have an Active Cancer Diagnosis on the Problem List?: No Quality: Stroke Does the patient have a stroke diagnosis?: No Physical Exam Vital Signs: Vital Signs: Last Vital Signs Temp 97.9 F 03/15/25 15:11 Pulse 82 03/15/25 15:11 Resp 20 03/15/25 15:11 BP 155/101 H 03/15/25 15:11 Pulse Ox 94 03/15/25 15:11 O2 Del Method Room Air 03/15/25 15:11 O2 Flow Rate 2 03/14/25 18:02 BMI result Body Mass Index 30.2 General: AOx3, no acute distress Resp: CTA bilaterally CVS: S1, S2, RRR GI: +BS, no distention, NT Skin: Warm, dry Neuro: Cranial nerves II-XII grossly intact bilaterally. Motor grossly intact bilaterally Extremities: No edema Psych: Appropriate affect DS: Data Data Completed and Pending Completed studies during hospitalization [Text1]: Procedures Performance of Urinary Filtration, Intermittent, Less than 6 Hours Per Day (02/26/25) Transfusion of Nonautologous Red Blood Cells into Peripheral Vein, Percutaneous Approach (04/19/23) Labs on day of discharge: Laboratory Results - last 24 hr 03/14/25 03/14/25 03/14/25 16:47 17:32 18:22 WBC 10.2 RBC 2.07 L D Hgb 6.7 L* D Hct 19.4 L* D MCV 93.7 MCH 32.4 MCHC 34.5 RDW 12.2 Plt Count 116 L MPV 10.3 Immature Gran % (Auto) 0.5 H Neut % (Auto) 82.9 H Lymph % (Auto) 7.6 L [place] % (Auto) 6.8 Eos % (Auto) 2.0 Baso % (Auto) 0.2 Lymph # (Auto) 0.8 L [place] # (Auto) 0.7 Eos # (Auto) 0.2 Baso # (Auto) 0.0 Abs Immat Gran (auto) 0.05 H Absolute Neuts (auto) 8.5 H Absolute Nucleated RBC 0.000 Nucleated RBC % (auto) 0.0 Smear Tech's Comments VERIFIED Absolute Retic 0.018 L Percent Retic 0.9 Immature Retic Fraction 21.7 H Retic Hgb Equivalent 37.1 H Sodium 142 Potassium 6.6 H* D Chloride 101 Carbon Dioxide 24 Anion Gap 24 H BUN 85 H Creatinine 15.69 H* Estim Creat Clear Calc 8.6 Estimated GFR 4 Random Glucose 93 Calcium 8.2 L D Phosphorus 4.5 Magnesium 1.7 Iron 51 TIBC 180 L % Saturation 28 Unsat Iron Binding 129 Total Bilirubin 0.5 Direct Bilirubin 0.2 AST 19 ALT 14 Alkaline Phosphatase 160 H Troponin I High Sens 40.4 H B-Natriuretic Peptide 1721 H Total Protein 6.1 L Albumin 4.1 Vitamin B12 236 Folate 3.6 L Blood Type O Positive Antibody Screen NEGATIVE Crossmatch See Detail 03/14/25 03/14/25 03/15/25 23:28 23:28 04:28 WBC 7.6 RBC 2.33 L Hgb 7.5 L Hct 21.4 L MCV 91.8 MCH 32.2 MCHC 35.0 RDW 12.6 Plt Count 109 L MPV 9.4 Immature Gran % (Auto) 0.4 Neut % (Auto) 75.2 H Lymph % (Auto) 12.3 L [place] % (Auto) 9.4 Eos % (Auto) 2.4 Baso % (Auto) 0.3 Lymph # (Auto) 0.9 L [place] # (Auto) 0.7 Eos # (Auto) 0.2 Baso # (Auto) 0.0 Abs Immat Gran (auto) 0.03 Absolute Neuts (auto) 5.7 Absolute Nucleated RBC 0.000 Nucleated RBC % (auto) 0.0 Smear Tech's Comments Absolute Retic Percent Retic Immature Retic Fraction Retic Hgb Equivalent Sodium 143 144 Potassium 3.8 D 3.7 4.2 Chloride 98 99 Carbon Dioxide 29 31 H Anion Gap 20 18 BUN 52 H 55 H Creatinine 10.97 H* 12.04 H* Estim Creat Clear Calc 12.4 11.3 Estimated GFR 6 5 Random Glucose 91 118 H Calcium 9.2 D 8.4 D Phosphorus Magnesium Iron TIBC % Saturation Unsat Iron Binding Total Bilirubin Direct Bilirubin AST ALT Alkaline Phosphatase Troponin I High Sens 36.7 H B-Natriuretic Peptide Total Protein Albumin Vitamin B12 Folate Blood Type Antibody Screen Crossmatch 03/15/25 14:29 WBC 7.1 RBC 3.09 L D Hgb 9.8 L D Hct 28.0 L D MCV 90.6 MCH 31.7 MCHC 35.0 RDW 13.7 Plt Count 117 L MPV 9.3 L Immature Gran % (Auto) Neut % (Auto) Lymph % (Auto) [place] % (Auto) Eos % (Auto) Baso % (Auto) Lymph # (Auto) [place] # (Auto) Eos # (Auto) Baso # (Auto) Abs Immat Gran (auto) Absolute Neuts (auto) Absolute Nucleated RBC 0.000 Nucleated RBC % (auto) 0.0 Smear Tech's Comments Absolute Retic Percent Retic Immature Retic Fraction Retic Hgb Equivalent Sodium Potassium Chloride Carbon Dioxide Anion Gap BUN Creatinine Estim Creat Clear Calc Estimated GFR Random Glucose Calcium Phosphorus Magnesium Iron TIBC % Saturation Unsat Iron Binding Total Bilirubin Direct Bilirubin AST ALT Alkaline Phosphatase Troponin I High Sens B-Natriuretic Peptide Total Protein Albumin Vitamin B12 Folate Blood Type Antibody Screen Crossmatch Discharge Plan Discharge Anticipated Discharge Date/Time: 03/15/25 16:59 Patient Disposition: Home, Self-Care Discharge Diagnosis: Hyperkalemia Referrals: Pillo Trejo, [employer] [Primary Care Provider, Internal Medicine] - 1 Week Discharge Medications: New vancomycin 125 mg capsule 125 mg PO QID Qty: 40 0RF Rx Instructions: Take one tablet four times a day for acute C-Diff colitis Continued atorvastatin 20 mg tablet 20 mg PO DAILY sennosides-docusate sodium [Senna Plus] 8.6-50 mg tablet 2 tab PO BID PRN (Reason: Constipation) clonidine 0.3 mg/24 hr patch weekly 1 patch topical FR@0900 gabapentin 100 mg capsule 200 mg PO BID sertraline 50 mg tablet 50 mg PO DAILY sevelamer carbonate 800 mg tablet 2,400 mg PO TIDWMEAL ketoconazole 2 % Cream 1 appl TOPICAL DAILY PRN (Reason: Rash) Rx Instructions: face nitroglycerin 0.4 mg Tablet, Sublingual 0.4 mg SUBLINGUAL Q5M PRN (Reason: Chest Pain) Rx Instructions: do not exceed 3 doses per episode losartan 100 mg tablet 100 mg PO BID carvedilol 12.5 mg tablet 25 mg PO BID trazodone 50 mg tablet 50 mg PO BEDTIME PRN (Reason: Sleep) buspirone 15 mg tablet 15 mg PO BID alprazolam 0.5 mg Tablet Extended Release 24 Hr 0.5 mg PO BID PRN (Reason: Anxiety) hydrocortisone 2.5 % Cream 1 appl TOPICAL DAILY PRN (Reason: Rash) Protocol: Apply to: Apply to: FACE Triphrocaps 1 mg capsule 1 cap PO BEDTIME ondansetron 4 mg tablet,disintegrating 4 mg PO Q8H PRN (Reason: nausea and vomiting) Qty: 14 0RF loperamide [Anti-Diarrheal (loperamide)] 2 mg tablet 2 mg PO BID PRN (Reason: Loose Stool) levetiracetam 250 mg tablet 750 mg PO MOWEFR@1600 levetiracetam 250 mg tablet 750 mg PO BID@0900,2100 Discontinued metronidazole 500 mg tablet 500 mg PO Q8H Discharge Orders: Discharge Order (Routine); Ordered 03/15/25 Ordered By: Yuriy Lundy Activity on Discharge: As tolerated Stand Alone Forms: Patient Portal Discharge page Print Language: Eritrean Care Plan Goals: Resume all home meds Take full course of new vancomycin antibiotic Compliance with dialysis Health Concerns: ESRD C-Diff colitis Uncontrollable HTN Plan of Treatment: Resume home meds Stop metronidazole prescription and replace with vancomycin Take vancomycin 125 mg p.o. 4 times a day for the next 10 days Resume outpatient dialysis Follow up with PCP in one week for repeat labs and routine post-hospital follow up Assessment: See discharge summary
== END 2025-03-15 18:06 | disposition home or self-care (01) | DRG 640 ==
LOC: HO.ED 18:30 → HO.EDOVER 18:56 → HO.IMC 03-15 07:35
PROVIDERS: Internal Medicine; Nurse Practitioner Family; Admitting Provider Student in an Organized Health Care Education/Training Program; Emergency Provider Emergency Medicine Emergency Medical Services; PCP Nurse Practitioner Family; Visit Provider Student in an Organized Health Care Education/Training Program
DX: E87.5 Hyperkalemia (principal); N18.6 End stage renal disease; I12.0 Hypertensive chronic kidney disease with stage 5 chronic kidney disease or end stage renal disease; A04.72 Enterocolitis due to Clostridium difficile, not specified as recurrent; I16.9 Hypertensive crisis, unspecified; D63.1 Anemia in chronic kidney disease; E78.5 Hyperlipidemia, unspecified; F39 Unspecified mood [affective] disorder; G47.00 Insomnia, unspecified; G40.909 Epilepsy, unspecified, not intractable, without status epilepticus; M54.9 Dorsalgia, unspecified; G89.29 Other chronic pain; Z99.2 Dependence on renal dialysis; Z91.158 Patient's noncompliance with renal dialysis for other reason; Z79.899 Other long term (current) drug therapy
CPT/HCPCS: 36415; 71045; 80048; 80076; 82607; 82746; 82803; 83540; 83735; 83880; 84100; 84132; 84484; 85025; 85027; 85045; 86850; 86900; 86901; 86923; 90999; 93005; 99285; J0613; J1171; J1885; J2405; J2470; P9016

== ENCOUNTER → 2025-03-14 15:53 | Outpatient (BNV) | payer OTHER, SELFPAY | PROVIDERS: Admitting Provider Student in an Organized Health Care Education/Training Program; Emergency Provider Emergency Medicine Emergency Medical Services; PCP Nurse Practitioner Family; Visit Provider Internal Medicine | DX: R10.9 Unspecified abdominal pain (principal) | CPT/HCPCS: 93010 ==

== ENCOUNTER → 2025-03-14 16:06 | Outpatient (BNV) | payer OTHER, SELFPAY | PROVIDERS: Emergency Provider Emergency Medicine Emergency Medical Services; PCP Nurse Practitioner Family; Visit Provider Nuclear Medicine | DX: M54.50 Low back pain, unspecified (principal); R07.9 Chest pain, unspecified | CPT/HCPCS: 71045 ==

== ENCOUNTER → 2025-03-14 18:16 | Outpatient (BNV) | payer OTHER, SELFPAY | PROVIDERS: Admitting Provider Student in an Organized Health Care Education/Training Program; Emergency Provider Emergency Medicine Emergency Medical Services; PCP Nurse Practitioner Family; Visit Provider Internal Medicine | DX: N18.6 End stage renal disease (principal); R19.7 Diarrhea, unspecified; A04.72 Enterocolitis due to Clostridium difficile, not specified as recurrent | CPT/HCPCS: 99232 ==

== ENCOUNTER → 2025-03-14 18:16 | Outpatient (BNV) | payer OTHER, SELFPAY | PROVIDERS: Admitting Provider Student in an Organized Health Care Education/Training Program; Emergency Provider Emergency Medicine Emergency Medical Services; PCP Nurse Practitioner Family; Visit Provider Internal Medicine | DX: I12.0 Hypertensive chronic kidney disease with stage 5 chronic kidney disease or end stage renal disease (principal); N18.6 End stage renal disease; Z99.2 Dependence on renal dialysis; E87.5 Hyperkalemia | CPT/HCPCS: 99223 ==

== ENCOUNTER 2025-04-10 09:03 | Outpatient (REF) | payer OTHER, SELFPAY ==
[2025-04-10 11:15] LABS: MANUAL DIFF FLAG NO
[2025-04-10 11:24] LABS: Hematocrit 25.2 % (42.0-52.0); Hemoglobin 8.6 g/dl (14.0-18.0); Imm Gran Abs Auto 0.01 X10*3/uL (0.00-0.03); Imm Gran Pct Auto 0.2 % (0.0-0.4); Lymphocytes Absolute Auto 1.0 X10*3/uL (1.2-4.9); Mean Corpuscular HGB Conc 34.1 g/dl (31.0-36.0); Mean Corpuscular Hemoglobin 32.5 pg (27.0-33.0); Mean Corpuscular Volume 95.1 fL (80.0-98.0); NRBC Abs Auto 0.000 X10*3/uL (0.0-0.012); NRBC Pct Auto 0.0 /100WBC (0.0-0.2); Platelet Count 146 X10*3/uL (160-400); Red Blood Count 2.65 X10*6/uL (4.60-5.80); White Blood Count 5.4 X10*3/uL (4.8-10.8)
[2025-04-10 11:49] LABS: Alanine Aminotransferase 18 U/L (0-40); Albumin Level 4.3 g/dL (3.5-5.0); Alkaline Phosphatase 152 U/L (39-117); Anion Gap 21 (12-20); Aspartate Amino Transferase 19 U/L (5-37); Blood Urea Nitrogen 77 mg/dL (9-16); Calcium 7.7 mg/dL (8.4-10.2); Carbon Dioxide 26 mmol/L (22-29); Chloride 101 mmol/L (96-108); Magnesium 2.0 mg/dL (1.6-2.6); Potassium 5.3 mmol/L (3.3-5.1); Sodium 143 mmol/L (135-145); Total Protein 6.3 g/dL (6.5-8.0)
[2025-04-10 12:45] LABS: Estimated Glomerular Filt Rate 4
== END 2025-04-10 09:04 | disposition home or self-care (01) ==
LOC: HO.HMGCLDS 09:03
PROVIDERS: PCP Nurse Practitioner Family; Visit Provider Nurse Practitioner Family
DX: I10 Essential (primary) hypertension (principal)
CPT/HCPCS: 36415; 80053; 83735; 84443; 85025

== ENCOUNTER 2025-05-27 12:01 | Inpatient (IN) | payer OTHER, SELFPAY ==
[2025-05-27 12:13] VITALS: BP 152/80; BP 152/93; PULSE 73; PULSE 79; RESP 16; TEMP 36.9; O2SAT 100; O2SAT 99; BMI 33.9
[2025-05-27 12:57] LABS: MANUAL DIFF FLAG NO
[2025-05-27 13:04] LABS: Hematocrit 25.8 % (42.0-52.0); Hemoglobin 8.9 g/dl (14.0-18.0); Imm Gran Abs Auto 0.04 X10*3/uL (0.00-0.03); Imm Gran Pct Auto 0.4 % (0.0-0.4); Lymphocytes Absolute Auto 0.8 X10*3/uL (1.2-4.9); Mean Corpuscular HGB Conc 34.5 g/dl (31.0-36.0); Mean Corpuscular Hemoglobin 33.0 pg (27.0-33.0); Mean Corpuscular Volume 95.6 fL (80.0-98.0); NRBC Abs Auto 0.000 X10*3/uL (0.0-0.012); NRBC Pct Auto 0.0 /100WBC (0.0-0.2); Platelet Count 136 X10*3/uL (160-400); Red Blood Count 2.70 X10*6/uL (4.60-5.80); White Blood Count 9.3 X10*3/uL (4.8-10.8)
--- NOTE | 2025-05-27 13:21 | ECG_ITS ---
Test Reason : WEAKNESS Blood Pressure : */* mmHG Vent. Rate : 76 BPM Atrial Rate : 76 BPM P-R Int : 276 ms QRS Dur : 126 ms QT Int : 418 ms P-R-T Axes : 27 -24 41 degrees QTcB Int : 470 ms Sinus rhythm with 1st degree A-V block Non-specific intra-ventricular conduction block Abnormal ECG When compared with ECG of 14-Mar-2025 15:53, [place] interval has increased Questionable change in QRS duration Referred By: Generic ED Physician Electronically Signed By: Juvencio Vila
[2025-05-27 13:24] LABS: Alanine Aminotransferase 20 U/L (0-40); Albumin Level 4.5 g/dL (3.5-5.0); Alkaline Phosphatase 157 U/L (39-117); Anion Gap 24 (12-20); Aspartate Amino Transferase 26 U/L (5-37); Blood Urea Nitrogen 87 mg/dL (9-16); Calcium 7.5 mg/dL (8.4-10.2); Carbon Dioxide 21 mmol/L (22-29); Chloride 104 mmol/L (96-108); Creatinine Clr Calc Pharmacy 8.8; Estimated Glomerular Filt Rate 4; Magnesium 1.8 mg/dL (1.6-2.6); Potassium 7.6 mmol/L (3.3-5.1); Sodium 141 mmol/L (135-145); Total Protein 6.7 g/dL (6.5-8.0)
--- NOTE | 2025-05-27 13:31 | PC.NURSE ---
Pt pale, c/o weakness; states he only mised yesterday's dialysis; IV access obtained to R hand; pt has an existing portacath but the device on palpation feels antiverted backwards and unable to be accessed; pt palpated the site himself and stated it feels different than usual ; pt's serum potassium high at >7; aware; pt to go for emergency dialysis
--- NOTE | 2025-05-27 13:33 | ED_ITS ---
HPI - General Adult General Chief complaint: Weakness Stated complaint: DIZZINESS Time Seen by Provider: 05/27/25 13:28 History of Present Illness ED Provider: Smith Rodriges MD HPI narrative: 29-year-old male miss dialysis comes for evaluation generalized weakness diarrhea. I was notified by lab staff at about 13:26 patient had not yet been signed up with a provider yet. They told me that his creatinine was 15+ and his potassium was over 7 without hemolysis. I was handed an EKG shortly after that which revealed sinus rhythm with significant peaked T-waves. Related Data Home Medications ?Medication ?Instructions ?Recorded ?Confirmed atorvastatin 20 mg tablet 20 mg PO DAILY 03/13/2301/15 clonidine 0.3 mg/24 hr weekly 1 patch topical FR@0900 03/13/23 05/27/25 transdermal patch gabapentin 100 mg capsule 200 mg PO BID 03/13/2305/27 sertraline 50 mg tablet 50 mg PO DAILY 03/13/2301/15 losartan 100 mg tablet 100 mg PO BID 02/24/2405/27 nitroglycerin 0.4 mg sublingual 0.4 mg sublingual Q5M PRN Chest 02/24/24 05/27/25 tablet Pain alprazolam 0.5 mg tablet,extended 0.5 mg PO BID PRN An xiety 02/26/25 05/27/25 release 24 hr buspirone 15 mg tablet 15 mg PO BID 02/26/25 carvedilol 12.5 mg tablet 25 mg PO BID 02/26/25 vitamin B complex and vitamin C 1 cap PO BEDTIME 03/0105/27/25 no.20-folic acid 1 mg capsule (Triphrocaps) levetiracetam 250 mg tablet 750 mg PO BID@0900,2100 05/27/25 levetiracetam 250 mg tablet 750 mg PO MOWEFR@1600 afte r 03/14/25 05/27/25 dialysis loperamide 2 mg tablet 2 mg PO BID PRN Loose Stool 03/14/25 05/27/25 (Anti-Diarrheal (loperamide)) trazodone 100 mg tablet 100 mg PO BEDTIME PRN insomn ia 05/27/25 05/27/25 Allergies Allergy/AdvReac Type Severity Reaction Status Date / Time ceftriaxone AdvReac Nausea and Verified 05/27/25 12:16 Vomiting lorazepam (From Ativan) AdvReac Shakiness Verified 05/27/25 12:16 metoclopramide (From Reglan) AdvReac Nausea Verified 05/27/25 12:16 [facility] Past Medical History Medical History Renal failure Anemia ESRD (end stage renal disease) Seizure disorder Syncope ESRD needing dialysis Drug abuse Normocytic anemia CKD (chronic kidney disease) Anemia HTN (hypertension) ESRD on dialysis End stage chronic kidney disease Bilateral lower extremity pain Back pain Family History Family History Sister Substance use disorder Social History Social History Household Members: Family Household Members Other:: mom, step dad, sister and nephew Housing: House Do you presently have visiting nurse or other home services: Yes (vna 1x/month, data center architect - daily.) Alcohol intake: unknown Comment: SEIZURE PRECAUTIONS Patient Tobacco Use Status: Former Tobacco user Tobacco use type: Smokeless Tobacco Smoked in Last 30 Days: No e-Cigarette/Vaping Use: Never Used Use of substances other than those prescribed or required for medical reasons: No Substance Use Type: Marijuana Currently Displaying Signs/Symptoms of Drug Intoxication Withdrawal: No Have you been hit, kicked, punched, or otherwise hurt by someone within the past year? If so, by whom?: No Do you feel safe in your current relationship?: No Current Relationship Is there a partner from a previous relationship who is making you feel unsafe now?: No Are you made to feel afraid or neglected: No Advance Directives: Yes Advance Directives on File: Yes Advance Directives Date on File: 12/11/23 Do you have a plan to hurt others: No Plan Recently lost weight without trying: No How much weight loss: Not applicable Eating poorly because of decreased appetite: No Nutrition screen score: 0 Nutrition Risks: No Nutritional Risk Poor oral hygiene: No service: No Cognitive needs: No Hearing needs: No Vision needs: No Physical Exam ED Exam Exam: EXAM: Gen: Alert, mildly ill-appearing diaphoretic not distressed breathing comfortably Head: Atraumatic Eyes: Anicteric, Normal conjunctiva. ENT: Moist mucosa, no pallor. ? Neck: Supple. Skin: ?No observable rash or bruising on exposed or examined skin Respiratory: Breathing comfortably, No distress.Clear to auscultation bilaterally, symmetric chest expansion, No wheeze, rales, ronchi. Cardiovascular: Regular rate and rhythm. No murmurs or rub. Well perfused periphery, warm extremities. No edema. ? Abdominal: No focal tenderness. Soft, no objective distension. No palpable masses or obvious organomegaly. ?No guarding, no rebound tenderness or other peritoneal findings. : No flank tenderness. Neuro: Alert. Gross movement of all extremities intact. ? Psych: Calm. Cooperative. MSK: No grossly visible deformity. Vital signs: See flowsheet Vital Signs: Vital Signs - 24 hr 05/27/25 12:13 Temperature 98.5 F Pulse Rate 73 Respiratory Rate 16 Blood Pressure 152/93 H Pulse Oximetry 100 Oxygen Delivery Method Room Air BMI result Body Mass Index 33.9 Medications Administered Generic Name Dose Route Start Last Admin Trade Name Freq PRN Reason Stop Dose Admin Atorvastatin Calcium 20 mg 05/28/25 09:00 05/28/25 08:08 Atorvastatin Calcium 20 Mg Tablet PO 20 mg DAILY DENZEL Administration Buspirone HCl 15 mg 05/27/25 21:00 05/28/25 08:09 Buspirone Hcl 5 Mg Tablet PO 15 mg BID DENZEL Administration Carvedilol 25 mg 05/27/25 21:00 05/28/25 08:08 Carvedilol 25 Mg Tablet PO 25 mg BID DENZEL Administration Protocol Gabapentin 200 mg 05/27/25 21:00 05/28/25 08:09 Gabapentin 100 Mg Capsule PO 200 mg BID DENZEL Administration Levetiracetam 750 mg 05/27/25 21:00 05/28/25 08:10 Levetiracetam 250 Mg Tablet PO 750 mg BID@0900,2100 DENZEL Administration Losartan Potassium 100 mg 05/28/25 09:00 05/28/25 08:09 Losartan Potassium 50 Mg Tablet PO 100 mg BID DENZEL Administration Protocol Multivitamins/Vitamin C 1 tab 05/27/25 21:00 05/27/25 20:17 Multivitamin Tablet PO 1 tab BEDTIME DENZEL Administration Sertraline HCl 50 mg 05/28/25 09:00 05/28/25 08:09 Sertraline Hcl 50 Mg Tablet PO 50 mg DAILY DENZEL Administration Sodium Chloride 3 ml 05/27/25 16:00 05/28/25 08:08 0.9 % Sodium Chloride Flush 3 Ml Syringe IVFLUSH 3 ml QSHIFT DENZEL Administration Trazodone HCl 100 mg 05/27/25 18:48 05/28/25 00:05 Trazodone Hcl 100 Mg Tablet PO 100 mg BEDTIME PRN Administration Insomnia Discontinued Medications Generic Name Dose Route Start Last Admin Trade Name Ruth Ann PRN Reason Stop Dose Admin Acetaminophen 650 mg 05/27/25 14:45 05/27/25 20:17 Acetaminophen 325 Mg Tablet PO 650 mg Q6H PRN Administration Pain, Mild 1-3,fever,headache Acetaminophen/Butalbital/Caffeine 1 tab 05/27/25 22:56 05/27/25 23:05 Butalb/Acetamin/Caff 50/325/40 Tablet PO 05/27/25 22:57 1 tab ONCE STA Administration Albuterol Sulfate 10 mg 05/27/25 13:30 05/27/25 13:46 Albuterol Sulfate (0.083%) 2.5 Mg/3 Ml Vial.Neb INHALE 05/27/25 13:31 10 mg ONCE ONE Administration Dextrose 25 gm 05/27/25 13:30 05/27/25 13:46 Dextrose 50 % 25 Gm/50 Ml Syringe IVPUSH 05/27/25 13:31 25 gm ONCE ONE Administration Calcium Gluconate 2 gm in 100 mls @ 50 mls/hr 05/27/25 13:30 05/27/25 15:47 Calcium Gluconate IV 05/27/25 15:29 Infused ONCE ONE Infusion Insulin Human Regular 5 unit 05/27/25 13:30 05/27/25 13:47 Insulin Regular, Human 100 Unit/Ml 10 Ml Vial IVPUSH 05/27/25 13:31 5 unit ONCE ONE Administration Levetiracetam 750 mg 05/27/25 20:00 05/27/25 20:16 Levetiracetam 250 Mg Tablet PO 05/27/25 20:01 750 mg ONCE ONE Administration Ondansetron HCl 4 mg 05/27/25 14:12 05/27/25 14:16 Ondansetron Odt 4 Mg Tab.Rapdis TRANSLINGU 05/27/25 14:13 4 mg ONCE ONE Administration Sodium Bicarbonate 50 meq 05/27/25 13:30 05/27/25 13:46 Sodium Bicarbonate 8.4% 50 Meq/50 Ml Syringe IVPUSH 05/27/25 13:31 50 meq ONCE ONE Administration Procedures Procedure Narrative Procedure Narrative: Ultrasound Guided Peripheral Intravenous Catheter Placement Indication: Intravenous Access Location: Right ??Vascular Location of Catheter Tip: Basilic Provider: Self I was approached by nursing staff and informed that multiple unsuccessful attempts had been made to establish IV access in the patient. The patients arm was surveyed with the ultrasound for verification of vessel collapsibility, patency, depth and caliber, as well as identification of nearby structures. The target area was prepped with chlorhexidine. A tourniquet was placed proximally on the extremity. Under real-time ultrasound guidance, an 20 G 2.25 inch nontunneled catheter ? was advanced into the target vein. Dark blood was visualized in the flash chamber. The catheter was easily advanced into the vein. The catheter was evacuated of air and flushed with sterile saline. The catheter was secured in place with a tegaderm. The patient tolerated the procedure well and there were no complications. Estimated Blood Loss: 1mL Total Time for Procedure: 5min Images Stored CPT: 41369; 63577 ___ Unfortunately about 20 minutes later the nurse told me that the patient was having pain he did have some subcutaneous cobblestoning and we removed this line as it may have infiltrated Medical Decision Making Medical Decision Making MDM Narrative: Medical Decision Making: [age] male who missed dialysis. Hyperkalemic with peak T-waves plan for calcium, albuterol, insulin, dextrose, discussion with patient with nephrology for emergent dialysis if possible Case discussed with nephrology and hospitalist to expedite rapid transfer to the floor for admission to medical telemetry for emergent dialysis patient was given bicarbonate, calcium, insulin, dextrose, albuterol Patient is not hypoxic or clinically fluid overloaded. He does have lower leg myalgia likely due to the hyperkalemia. Preliminary Favored Differential Diagnosis: Missed dialysis, hyperkalemia, uremia, acidosis, among additional considered etiologies Testing Interpreted Independently: ?See below for details Radiology or Lab testing Results Reviewed: ?See below for details Consults: ?See below for details Independent Historians/External Chart Reviews: ?See below for details Social Determinants of Health Impacting MDM/Planning: ?See below for details Consult Healthcare Provider Management of the patient was discussed with: Hospitalist and Wellness Health Coach (Nephrology contacted through tiger at 01:52 p.m. eventually we conversed and arranged emergent dialysis) Lab Data MDM Lab Attestation statement: I reviewed the patient's lab results. 05/27/25 12:45 05/28/25 05:36 Labs: Lab Results 05/27/25 Range/Units 12:45 WBC 9.3 (4.8-10.8) X10*3/uL RBC 2.70 L (4.60-5.80) X10*6/uL Hgb 8.9 L (14.0-18.0) g/dl Hct 25.8 L (42.0-52.0) % MCV 95.6 (80.0-98.0) fL MCH 33.0 (27.0-33.0) pg MCHC 34.5 (31.0-36.0) g/dl RDW 14.0 (11.0-16.0) % Plt Count 136 L (160-400) X10*3/uL MPV 9.6 (9.4-12.4) fL Immature Gran % (Auto) 0.4 (0.0-0.4) % Neut % (Auto) 80.6 H (45-73) % Lymph % (Auto) 9.0 L (20-40) % [place] % (Auto) 7.5 (2-11) % Eos % (Auto) 2.1 (0-4) % Baso % (Auto) 0.4 (0-2) % Lymph # (Auto) 0.8 L (1.2-4.9) X10*3/uL [place] # (Auto) 0.7 (0.1-1.2) X10*3/uL Eos # (Auto) 0.2 (0.0-0.4) X10*3/uL Baso # (Auto) 0.0 (0.0-0.2) X10*3/uL Abs Immat Gran (auto) 0.04 H (0.00-0.03) X10*3/uL Absolute Neuts (auto) 7.5 (2.0-8.3) x10*3/uL Absolute Nucleated RBC 0.000 (0.0-0.012) X10*3/uL Nucleated RBC % (auto) 0.0 (0.0-0.2) /100WBC Sodium 141 (135-145) mmol/L Potassium 7.6 H* D (3.3-5.1) mmol/L Chloride 104 (96-108) mmol/L Carbon Dioxide 21 L (22-29) mmol/L Anion Gap 24 H (12-20) BUN 87 H (9-16) mg/dL Creatinine 15.82 H* (0.5-1.4) mg/dL Estim Creat Clear Calc 8.8 Estimated GFR 4 Fasting Glucose 104 H (60-99) mg/dL Calcium 7.5 L (8.4-10.2) mg/dL Magnesium 1.8 (1.6-2.6) mg/dL Total Bilirubin 0.7 (0.0-1.0) mg/dL AST 26 (5-37) U/L ALT 20 (0-40) U/L Alkaline Phosphatase 157 H (39-117) U/L Total Protein 6.7 (6.5-8.0) g/dL Albumin 4.5 (3.5-5.0) g/dL Independent Interpretation I performed an independent interpretation of an: EKG (Sinus rhythm peaked T- waves poor R-wave progression no acute ischemic changes) Chronic Conditions Patient?s care impacted by: Hypertension and Other (ESRD) Social Determinants Poor adherence with dialysis Critical Care Time Critical Care Time Critical Care Time: Yes Total Critical Care Time: 40 Attestation: ED Critical Care: Authorized and Performed by: Smith Rodriges MD Total critical care time: Approximately 40 Due to a high probability of clinically significant, life threatening deterioration, the patient required my highest level of preparedness to intervene emergently and I personally spent this critical care time directly and personally managing the patient. This critical care time included obtaining a history; examining the patient; pulse oximetry; ordering and review of studies; arranging urgent treatment with development of a management plan; evaluation of patient's response to treatment; frequent reassessment; and, discussions with other providers. This critical care time was performed to assess and manage the high probability of imminent, life-threatening deterioration that could result in multi-organ failure. It was exclusive of separately billable procedures and treating other patients and teaching time. Discharge Plan Discharge Clinical Impression: Hyperkalemia Patient Disposition: Admitted As Inpatient Interventions: Admission Worksheet (ED) Last Done: 05/27/25 14:41 Discharge Date/Time: 05/27/25 15:15
[2025-05-27] MEDS: Albuterol Sulfate (0.083%) 2.5 MG/3 ML VIAL.NEB 10 MG INHALE (13:46)
[2025-05-27] MEDS: Calcium Gluconate/NaCl,Iso-Osm 2 GM/100 ML PLAST..BAG IV (13:47)
--- NOTE | 2025-05-27 14:07 | PC.NURSE ---
U/S guided 18G IV obtained by Dr Smith to R inner upper arm; + flush and blood return; pt c/o severe burning when IVP sodium bicarb admin. per orders; provider made and is at bedside to re-eval line via U/S; all other sr. social media & mobile manager through peripheral IV R hand
--- NOTE | 2025-05-27 14:18 | PC.NURSE ---
U/S IV removed by
[2025-05-27 14:33] VITALS: BP 153/95; PULSE 77; RESP 18; TEMP 36.4; O2SAT 95
--- NOTE | 2025-05-27 14:47 | PM.IMHP ---
History of Present Illness Date of Service: 05/27/25 Attending physician on admission: Mohsen Ortiz Chief Complaint: weakness This is a 29-year-old male with history of ESRD on hemodialysis, hypertension, anemia, seizure disorder presents to the emergency department with weakness, feeling lightheaded and tingling in his hands and legs. Patient missed his hemodialysis on Saturday due to multiple episodes of diarrhea. Today in the emergency department he was noted to have elevated potassium at 7.6, creatinine 15.82. He had no shortness a breath, no hypoxia. Blood pressure stable in the 150 systolic. In the emergency department patient received insulin/dextrose, sodium bicarbonate, albuterol, calcium gluconate and the case was discussed with Nephrology who agreed to admit the patient for urgent hemodialysis. Review of Systems Review of Systems: Yes all other systems are reviewed and are negative Constitutional: Constitutional: Denies chills and Denies fever(s) [facility] Medical History Renal failure Anemia ESRD (end stage renal disease) Seizure disorder Syncope ESRD needing dialysis Drug abuse Normocytic anemia CKD (chronic kidney disease) Anemia HTN (hypertension) ESRD on dialysis End stage chronic kidney disease Bilateral lower extremity pain Back pain Family History Sister Substance use disorder Social History Household Members: Family Household Members Other:: mom, step dad, sister and nephew Housing: House Do you presently have visiting nurse or other home services: Yes (sister is citizenship teacher) Alcohol intake: unknown Comment: Pt refusing bed alarm Patient Tobacco Use Status: Former Tobacco user Tobacco use type: Smokeless Tobacco Smoked in Last 30 Days: No e-Cigarette/Vaping Use: Never Used Use of substances other than those prescribed or required for medical reasons: No Substance Use Type: Marijuana Advance Directives: Yes Advance Directives on File: Yes Advance Directives Date on File: 12/11/23 Do you have a plan to hurt others: No Plan service: No Cognitive needs: No Hearing needs: No Vision needs: No Meds Allergies Allergy/AdvReac Type Severity Reaction Status Date / Time ceftriaxone AdvReac Nausea and Verified 05/27/25 12:16 Vomiting lorazepam (From Ativan) AdvReac Shakiness Verified 05/27/25 12:16 metoclopramide (From Reglan) AdvReac Nausea Verified 05/27/25 12:16 Active Medications: Current Medications Calcium Gluconate (Calcium Gluconate) 2 gm in 100 mls @ 50 mls/hr IV ONCE ONE Stop: 05/27/25 15:29 Last Admin: 05/27/25 13:47 Dose: 50 mls/hr Home Medications ?Medication ?Instructions ?Recorded ?Confirmed ?Last Taken ?Type atorvastatin 20 mg tablet 20 mg PO DAILY 03/13/23 05/27/25 05/27/25 History clonidine 0.3 mg/24 hr weekly 1 patch topical FR@0900 03/13/23 05/27/25 05/21/25 History transdermal patch gabapentin 100 mg capsule 200 mg PO BID 03/13/23 05/27/25 05/27/25 History sertraline 50 mg tablet 50 mg PO DAILY 03/13/23 05/27/25 05/27/25 History losartan 100 mg tablet 100 mg PO BID 02/24/24 05/27/25 05/27/25 History nitroglycerin 0.4 mg sublingual 0.4 mg sublingual Q5M PRN Chest 02/24/24 05/27/25 05/27/25 History tablet Pain alprazolam 0.5 mg tablet,extended 0.5 mg PO BID PRN Anxiety 02/26/25 05/27/25 Unknown History release 24 hr buspirone 15 mg tablet 15 mg PO BID 02/26/25 05/27/25 05/27/25 History carvedilol 12.5 mg tablet 25 mg PO BID 02/26/25 05/27/25 05/27/25 History vitamin B complex and vitamin C 1 cap PO BEDTIME 03/01/25 05/27/25 05/26/25 History no.20-folic acid 1 mg capsule (Triphrocaps) levetiracetam 250 mg tablet 750 mg PO BID@0900,2100 03/14/25 05/27/25 05/27/25 History levetiracetam 250 mg tablet 750 mg PO MOWEFR@1600 after 03/14/25 05/27/25 05/26/25 History dialysis loperamide 2 mg tablet 2 mg PO BID PRN Loose Stool 03/14/25 05/27/25 Unknown History (Anti-Diarrheal (loperamide)) trazodone 100 mg tablet 100 mg PO BEDTIME PRN insomnia 05/27/25 05/27/25 Unknown History Physical Exam Vital Signs and Narrative: Vital Signs: Last Vital Signs Temp 97.6 F 05/27/25 14:33 Pulse 77 05/27/25 14:33 Resp 18 05/27/25 14:33 BP 153/95 H 05/27/25 14:33 Pulse Ox 95 05/27/25 14:33 O2 Del Method Room Air 05/27/25 14:33 BMI result Body Mass Index 33.9 Const: General: cooperative, comfortable, no acute distress, alert and awake Nutritional Appearance: average body habitus Orientation/consciousness: patient oriented x3 Resp: Effort & Inspection: normal respiratory effort, able to speak in complete sentences, no respiratory distress and no use of accessory muscles Auscultation: clear to auscultation bilaterally Cardio: Rate: regular rate GI: Inspection: No distended Palpation (GI): Soft to palpation Neuro: General: patient oriented x3, moves all extremities and CN's II-XI intact bilaterally Results Labs 05/27/25 12:45 05/27/25 12:45 Labs: Laboratory Results - last 24 hr 05/27/25 12:45 MCV 95.6 MCH 33.0 MCHC 34.5 RDW 14.0 Plt Count 136 L MPV 9.6 Immature Gran % (Auto) 0.4 Neut % (Auto) 80.6 H Lymph % (Auto) 9.0 L [place] % (Auto) 7.5 Eos % (Auto) 2.1 Baso % (Auto) 0.4 Lymph # (Auto) 0.8 L [place] # (Auto) 0.7 Eos # (Auto) 0.2 Baso # (Auto) 0.0 Abs Immat Gran (auto) 0.04 H Absolute Neuts (auto) 7.5 Absolute Nucleated RBC 0.000 Nucleated RBC % (auto) 0.0 Anion Gap 24 H Estim Creat Clear Calc 8.8 Estimated GFR 4 Fasting Glucose 104 H Calcium 7.5 L Magnesium 1.8 Total Bilirubin 0.7 AST 26 ALT 20 Alkaline Phosphatase 157 H Total Protein 6.7 Albumin 4.5 Assessment and Plan (1) Hyperkalemia: Status: Acute Plan This is a 29-year-old male with a history of ESRD on hemodialysis Saturday, Saturday, Saturday, seizure disorder, hypertension who presents to the emergency department with feeling lightheaded, hand and leg tingling and nausea found to have hyperkalemia Hyperkalemia Due to missing hemodialysis; normal HD schedule MWF Plan for urgent dialysis today Follows with Dr. Hicks Trend BMP HTN continue baseline meds- carvedilol, clonidine patch hold losartan until potassium normalizes seizure d/o continue keppra mood continue baseline meds HLD continue statin dvt ppx- mechanical devices, early ambulation Quality Stroke Does the patient have a stroke diagnosis?: No VTE Prior VTE?: No VTE Risk Level:: Medical - moderate - high VTE Device Contraindication: N/A - Device Ordered VTE Drug Contraindication: N/A - Med Ordered
--- OUTSIDE RECORDS SUMMARY | 2025-05-27 14:49 | XMS_ITS | Clinical Summary ---
Author Organization [facility] Address [address] [place] [id number] Phone Care Team Providers Care Telephone Sales Agent Name Role Phone Kalen Kerns MD Primary Care Provider [phone] Allergies No known active allergies Medications cloNIDine [...] 76 05/28/2018 10:51 AM EDT Temperature 36.7 C (98.1 F) 05/28/2018 10:51 AM EDT Respiratory Rate - - Oxygen Saturation - - Inhaled Oxygen Concentration - - Weight 87.6 kg (193 lb 3 oz) 05/28/2018 10:51 AM EDT Height 183.5 cm (6' 0.25 ) 05/28/2018 10:51 AM E DT Body Mass Index 26.02 05/28/2018 10:51 AM EDT Plan of Treatment Health Maintenance Due Date Last Done Comments Varicella Vaccines (1 of 2 - 13+ 2-dose series) 2007 DTaP,Tdap,and Td Vaccines (1 - Tdap) 2012 Hepatitis B Vaccines (1 of 3 - 19+ 3-dose series) 2013 HPV Vaccines (1 - 3-dose SCD M series) 2021 Influenza Vaccines (#1) 2025 08/25/20, 08/14/2019, 07/26/2017 COVID-19 Vaccine (3 - 2024-2 6 season) 2025 12/15/2020, 11/03/2020 Meningococcal Vaccine Aged Out 03/01/2017 [...] patient's age to complete this topic Insurance KASIA MORA [id number] [facility] OTHER [facility] Address: [address] [place] [address] [place] [address] Care Teams Telephone Sales Agent Relationship Specialty Start Date End Date Kalen Kerns MD [address] [place] [address] [place] [address] PCP - General Pediatrics 05/27/18
--- NOTE | 2025-05-27 18:46 | PHA.MEDREC ---
Pharmacy Consult ? Medication Reconciliation Pharmacy has completed the medication reconciliation. Spoke to patient to confirm med list. Patient states he is no longer taking Hydrocortisone 1% cream, Ondansetron 4 mg, Senna plus, and Sevelamer Cerb 2,400 mg (was put on hold, Patient takes off and on but is not taking right now). Patient confirmed Clonidine patch every Saturday. Patch is on right upper arm, Levetiracetam 750 mg BID and Levetiracetam 750 mg after dialysis Saturday. Patient had all his morning medications today.
[2025-05-27 19:47] VITALS: BMI 32.0
[2025-05-27 20:00] VITALS: BP 180/102; PULSE 84; RESP 18; TEMP 36.7; O2SAT 96
[2025-05-27 20:16] VITALS: BP 172/102; PULSE 84
[2025-05-27] MEDS: 0.9 % Sodium Chloride Flush 3 ML SYRINGE IVFLUSH (21:59)
[2025-05-27 22:41] VITALS: BP 166/95; PULSE 84; RESP 18
[2025-05-27] MEDS: Butalb/Acetamin/Caff 50/325/40 TABLET 1 TAB PO (23:05)
[2025-05-28 00:42] LABS: Anion Gap 19 (12-20); Blood Urea Nitrogen 40 mg/dL (9-16); Calcium 7.9 mg/dL (8.4-10.2); Carbon Dioxide 31 mmol/L (22-29); Chloride 98 mmol/L (96-108); Creatinine Clr Calc Pharmacy 14.3; Estimated Glomerular Filt Rate 7; Magnesium 1.8 mg/dL (1.6-2.6); Potassium 3.7 mmol/L (3.3-5.1); Sodium 144 mmol/L (135-145)
[2025-05-28 03:55] VITALS: BP 170/80; PULSE 76; RESP 18; TEMP 36.6
--- NOTE | 2025-05-28 06:03 | P.CONNP_ITS ---
History of Present Illness Reason for Consult Consult date: 05/27/25 Chief Complaint Chief complaint: urgent HD History of Present Illness Narrative: CAESAR consulted for severe HYperK Missed HD wed and noted muscle weakness and tingling-- this happens when my K is high . He has chronic diarrhea and it had worsened on Wed and prevented him from going for his HD treatment. He has multiple chronic med prob as ntoed below Review of Systems Review of Systems Yes all other systems are reviewed and are negative Constitutional: Denies chills and Denies fever(s) PMFSH Past Medical History Medical History Renal failure Anemia ESRD (end stage renal disease) Seizure disorder Syncope ESRD needing dialysis Drug abuse Normocytic anemia CKD (chronic kidney disease) Anemia HTN (hypertension) ESRD on dialysis End stage chronic kidney disease Bilateral lower extremity pain Back pain Family History Family History Sister Substance use disorder Social History Social History Household Members: Family Household Members Other:: mom, step dad, sister and nephew Housing: House Do you presently have visiting nurse or other home services: Yes (vna 1x/month, bankruptcy attorney - daily.) Alcohol intake: unknown Comment: SEIZURE PRECAUTIONS Patient Tobacco Use Status: Former Tobacco user Tobacco use type: Smokeless Tobacco Smoked in Last 30 Days: No e-Cigarette/Vaping Use: Never Used Use of substances other than those prescribed or required for medical reasons: No Substance Use Type: Marijuana Currently Displaying Signs/Symptoms of Drug Intoxication Withdrawal: No Have you been hit, kicked, punched, or otherwise hurt by someone within the past year? If so, by whom?: No Do you feel safe in your current relationship?: No Current Relationship Is there a partner from a previous relationship who is making you feel unsafe now?: No Are you made to feel afraid or neglected: No Advance Directives: Yes Advance Directives on File: Yes Advance Directives Date on File: 12/11/23 Do you have a plan to hurt others: No Plan Recently lost weight without trying: No How much weight loss: Not applicable Eating poorly because of decreased appetite: No Nutrition screen score: 0 Nutrition Risks: No Nutritional Risk Poor oral hygiene: No service: No Cognitive needs: No Hearing needs: No Vision needs: No Meds Allergies Allergy/AdvReac Type Severity Reaction Status Date / Time ceftriaxone AdvReac Nausea and Verified 05/27/25 12:16 Vomiting lorazepam (From Ativan) AdvReac Shakiness Verified 05/27/25 12:16 metoclopramide (From Reglan) AdvReac Nausea Verified 05/27/25 12:16 Active Medications: Current Medications Acetaminophen (Acetaminophen 325 Mg Tablet) 975 mg PO Q6H PRN PRN Reason: Pain, Mild 1-3,fever,headache Alprazolam (Alprazolam 0.5 Mg Tablet) 0.5 mg PO BID PRN PRN Reason: Anxiety Atorvastatin Calcium (Atorvastatin Calcium 20 Mg Tablet) 20 mg PO DAILY DENZEL Buspirone HCl (Buspirone Hcl 5 Mg Tablet) 15 mg PO BID [facility] Last Admin: 05/27/25 20:16 Dose: 15 mg Calcium Carbonate (Calcium Carbonate 750 Mg Tab.Chew) 750 mg PO Q4H PRN PRN Reason: Heartburn Carvedilol (Carvedilol 25 Mg Tablet) 25 mg PO BID [facility]; Protocol Last Admin: 05/27/25 20:16 Dose: 25 mg Clonidine (Clonidine 0.3 Mg Patch.Tdwk) 0.3 mg TRANSDERMA FR@0900 [facility]; Protocol Gabapentin (Gabapentin 100 Mg Capsule) 200 mg PO BID [facility] Last Admin: 05/27/25 20:17 Dose: 200 mg Levetiracetam (Levetiracetam 250 Mg Tablet) 750 mg PO BID@0900,2100 [facility] Last Admin: 05/27/25 21:56 Dose: 750 mg Levetiracetam (Levetiracetam 250 Mg Tablet) 750 mg PO MOWEFR@1600 DENZEL Loperamide HCl (Loperamide Hcl 2 Mg Capsule) 2 mg PO BID PRN PRN Reason: Loose Stool Magnesium Hydroxide (Milk Of Magnesia 30 Ml Oral.Susp) 30 ml PO DAILY PRN PRN Reason: Constipation Melatonin (Melatonin 3 Mg Tablet) 6 mg PO BEDTIME PRN PRN Reason: Insomnia Multivitamins/Vitamin C (Multivitamin Tablet) 1 tab PO BEDTIME [facility] Last Admin: 05/27/25 20:17 Dose: 1 tab Sertraline HCl (Sertraline Hcl 50 Mg Tablet) 50 mg PO DAILY [facility] Sodium Chloride (0.9 % Sodium Chloride Flush 3 Ml Syringe) 3 ml IVFLUSH QSHIFT DENZEL Last Admin: 05/27/25 21:59 Dose: 3 ml Trazodone HCl (Trazodone Hcl 100 Mg Tablet) 100 mg PO BEDTIME PRN PRN Reason: Insomnia Last Admin: 05/28/25 00:05 Dose: 100 mg Home Medications ?Medication ?Instructions ?Recorded ?Confirmed ?Last Taken ?Type atorvastatin 20 mg tablet 20 mg PO DAILY 03/13/2301/1505/27/25 History clonidine 0.3 mg/24 hr weekly 1 patch topical FR@0900 03/13/23 05/27/25 05/21/25 History transdermal patch gabapentin 100 mg capsule 200 mg PO BID 03/13/2305/2705/27/25 History sertraline 50 mg tablet 50 mg PO DAILY 03/13/2301/1505/27/25 History losartan 100 mg tablet 100 mg PO BID 02/24/2405/2705/27/25 History nitroglycerin 0.4 mg sublingual 0.4 mg sublingual Q5M PRN Chest 02/24/24 05/27/25 05/27/25 History tablet Pain alprazolam 0.5 mg tablet,extended 0.5 mg PO BID PRN An xiety 02/26/25 05/27/25 Unknown History release 24 hr buspirone 15 mg tablet 15 mg PO BID 02/26/2505/27/25 History carvedilol 12.5 mg tablet 25 mg PO BID 02/26/2505/27/25 History vitamin B complex and vitamin C 1 cap PO BEDTIME 03/0105/27/25 05/26/25 History no.20-folic acid 1 mg capsule (Triphrocaps) levetiracetam 250 mg tablet 750 mg PO BID@0900,2100 05/27/25 05/27/25 History levetiracetam 250 mg tablet 750 mg PO MOWEFR@1600 afte r 03/14/25 05/27/25 05/26/25 History dialysis loperamide 2 mg tablet 2 mg PO BID PRN Loose Stool 03/14/25 05/27/25 Unknown History (Anti-Diarrheal (loperamide)) trazodone 100 mg tablet 100 mg PO BEDTIME PRN insomn ia 05/27/25 05/27/25 Unknown History Physical Exam Vital Signs: Last Vital Signs Temp 97.8 F 05/28/25 03:55 Pulse 76 05/28/25 03:55 Resp 18 05/28/25 03:55 BP 170/80 H 05/28/25 03:55 Pulse Ox 96 05/27/25 20:00 O2 Del Method Room Air 05/27/25 20:00 BMI result Body Mass Index 32.0 Const General: cooperative, comfortable, no acute distress, alert and awake Nutritional Appearance: average body habitus Orientation/consciousness: patient oriented x3 Resp Effort & Inspection: normal respiratory effort, able to speak in complete sentences, no respiratory distress and no use of accessory muscles Auscultation: clear to auscultation bilaterally Cardio Rate: regular rate GI Inspection: No distended Palpation (GI): Soft to palpation Neuro General: patient oriented x3, moves all extremities and CN's II-XI intact bilaterally Results Lab Results 05/27/25 12:45 05/28/25 00:03 Lab results: Chemistry 05/27/25 05/28/25 12:45 00:03 Sodium 141 144 Potassium 7.6 H* D 3.7 D Carbon Dioxide 21 L 31 H BUN 87 H 40 H Creatinine 15.82 H* 9.49 H* Calcium 7.5 L 7.9 L Hematology 05/27/25 12:45 WBC 9.3 Hgb 8.9 L Plt Count 136 L Assessment and Plan (1) Hyperkalemia: Status: Acute Plan 29-year-old male with a history of ESRD on hemodialysis Saturday, Saturday, Saturday, seizure disorder, hypertension who presents to the emergency department with feeling lightheaded, hand and leg tingling and nausea found to have sever hyperkalemia ESRD: mwf at [facility] ( [place] [phone] ) Hyperkalemia HTN seizure d/o continue keppra REC: urgent HD on 1 K bath today and then again HD 05/28 to get back on mwf schedule; may need Lokelma on non-HD days as outpt if K run high Procedures Date of Service Date of Service: 05/28/25
[2025-05-28 07:00] LABS: Anion Gap 18 (12-20); Blood Urea Nitrogen 43 mg/dL (9-16); Calcium 7.6 mg/dL (8.4-10.2); Carbon Dioxide 29 mmol/L (22-29); Chloride 100 mmol/L (96-108); Creatinine Clr Calc Pharmacy 13.6; Estimated Glomerular Filt Rate 6; Potassium 4.3 mmol/L (3.3-5.1); Sodium 143 mmol/L (135-145)
[2025-05-28 07:43] VITALS: BP 170/100; PULSE 81; RESP 18; TEMP 36.8; O2SAT 98
[2025-05-28] MEDS: 0.9 % Sodium Chloride Flush 3 ML SYRINGE IVFLUSH ×2 (08:08→15:24)
--- NOTE | 2025-05-28 09:23 | MHC.CM.PN ---
IMM delivered. Patient lives in a home w/ family including: mother, step father, sister and nephew His sister is his TELLER COORDINATOR and provides assistance daily with laundry, cleaning, cooking, etc. He cannot recall how many hours. He reports he is independent w/ hygiene/dressing. Uses a cane PRN when outside the home. HD in [place] (he cannot recall which center) M/W/F, 10am chair time, [facility] transport. PCP Pillo Trejo MANAGED CARE ANALYST HCP on file and verified. [facility] is Caitlin hernández. DP: Goal is home, resume TELLER COORDINATOR. Requesting BLS transport through [facility]. CM will continue to follow.
--- NOTE | 2025-05-28 12:41 | MHC.CM.PN ---
PER MD ROUNDS- PT WILL D/C TODAY. THIS GLASS LOADING EQUIPMENT TENDER SPOKE W/ PATIENT HE WILL ARRANGE HIS OWN TRANSPORT @ D/C.
--- NOTE | 2025-05-28 15:35 | P.DS_ITS ---
DS: Providers Provider Date of Service: 05/28/25 Date of admission: 05/27/25 14:32 Date of discharge: 05/28/25 Primary care physician: DRAKE Garcia- Consults: 05/27/25 14:19 Consult to Nephrology Stat Consulting Provider: [facility] Reason for consultation: needs HD 05/27/25 14:45 Consult to Nephrology Routine Consulting Provider: [facility] Reason for consultation: hyperkalemia Has provider been notified: No DS: Diagnosis Discharge Diagnosis (1) Hyperkalemia: Status: Acute (2) ESRD on dialysis: Status: Acute (3) Chronic diarrhea: Status: Acute DS: Summary Hospital Course Hospital Course: from admission H+P by hospitalist Susan Powell, 05/27/25: This is a 29-year-old male with history of ESRD on hemodialysis, hypertension, anemia, seizure disorder presents to the emergency department with weakness, feeling lightheaded and tingling in his hands and legs. Patient missed his hemodialysis on Saturday due to multiple episodes of diarrhea. Today in the emergency department he was noted to have elevated potassium at 7.6, creatinine 15.82. He had no shortness a breath, no hypoxia. Blood pressure stable in the 150 systolic. In the emergency department patient received insulin/dextrose, sodium bicarbonate, albuterol, calcium gluconate and the case was discussed with Nephrology who agreed to admit the patient for urgent hemodialysis. He underwent urgent HD and then routine HD the next day with normalization of potassium. Diarrhea resolved but if recurs, to submit stool for GI panel and C. difficile PCR given history of prior C. difficile. No abdominal pain or fever and normal WBCs. Discharged home with instructions to resume usual HD schedule and to follow up with Nephrology in 1-2 weeks. If diarrhea recurs, could consider outpatient GI consultation as well. Time Attestation Discharge Coordination Time (in mins): 45 Quality: Safe Use of Opioids Does Pt have an Active Cancer Diagnosis on the Problem List?: No Quality: Stroke Does the patient have a stroke diagnosis?: No Physical Exam Vital Signs: Vital Signs: Last Vital Signs Temp 98.3 F 05/28/25 07:43 Pulse 81 05/28/25 07:43 Resp 18 05/28/25 07:43 BP 170/100 H 05/28/25 07:43 Pulse Ox 98 09/05/25 07:43 O2 Del Method Room Air 05/28/25 07:43 BMI result Body Mass Index 32.0 Gen: in no acute distress HEENT: sclera anicteric, moist mucus membranes Neck: supple Lungs: clear to auscultation bilaterally Heart: regular rate and rhythm, no murmurs Abd: soft, non-tender, non-distended Ext: no edema Skin: warm/well-perfused Neuro: alert and oriented x3, no focal findings Psych: appropriate affect DS: Data Data Completed and Pending Completed studies during hospitalization [Text1]: Laboratory Results WBC 9.3 X10*3/uL (4.8-10.8) 05/27/25 12:45 RBC 2.70 X10*6/uL (4.60-5.80) L 05/27/25 12:45 Hgb 8.9 g/dl (14.0-18.0) L 05/27/25 12:45 Hct 25.8 % (42.0-52.0) L 05/27/25 12:45 MCV 95.6 fL (80.0-98.0) 05/27/25 12:45 MCH 33.0 pg (27.0-33.0) 05/27/25 12:45 MCHC 34.5 g/dl (31.0-36.0) 05/27/25 12:45 RDW 14.0 % (11.0-16.0) 05/27/25 12:45 Plt Count 136 X10*3/uL (160-400) L 05/27/25 12:45 MPV 9.6 fL (9.4-12.4) 05/27/25 12:45 Immature Gran % (Auto) 0.4 % (0.0-0.4) 05/27/25 12:45 Neut % (Auto) 80.6 % (45-73) H 05/27/25 12:45 Lymph % (Auto) 9.0 % (20-40) L 05/27/25 12:45 Levy % (Auto) 7.5 % (2-11) 05/27/25 12:45 Eos % (Auto) 2.1 % (0-4) 05/27/25 12:45 Baso % (Auto) 0.4 % (0-2) 05/27/25 12:45 Lymph # (Auto) 0.8 X10*3/uL (1.2-4.9) L 05/27/25 12:45 Levy # (Auto) 0.7 X10*3/uL (0.1-1.2) 05/27/25 12:45 Eos # (Auto) 0.2 X10*3/uL (0.0-0.4) 05/27/25 12:45 Baso # (Auto) 0.0 X10*3/uL (0.0-0.2) 05/27/25 12:45 Abs Immat Gran (auto) 0.04 X10*3/uL (0.00-0.03) H 05/27/25 12:45 Absolute Neuts (auto) 7.5 x10*3/uL (2.0-8.3) 05/27/25 12:45 Absolute Nucleated RBC 0.000 X10*3/uL (0.0-0.012) 05/27/25 12:45 Nucleated RBC % (auto) 0.0 /100WBC (0.0-0.2) 05/27/25 12:45 Hold Purple Top SEE NOTE 05/28/25 05:36 Sodium 143 mmol/L (135-145) 05/28/25 05:36 Potassium 4.3 mmol/L (3.3-5.1) 05/28/25 05:36 Chloride 100 mmol/L (96-108) 05/28/25 05:36 Carbon Dioxide 29 mmol/L (22-29) 05/28/25 05:36 Anion Gap 18 (12-20) 05/28/25 05:36 BUN 43 mg/dL (9-16) H 05/28/25 05:36 Creatinine 10.03 mg/dL (0.5-1.4) H* 05/28/25 05:36 Estim Creat Clear Calc 13.6 05/28/25 05:36 Estimated GFR 6 05/28/25 05:36 Random Glucose 99 mg/dL (60-115) 05/28/25 05:36 Fasting Glucose 104 mg/dL (60-99) H 05/27/25 12:45 Calcium 7.6 mg/dL (8.4-10.2) L 05/28/25 05:36 Magnesium 1.8 mg/dL (1.6-2.6) 05/28/25 00:03 Total Bilirubin 0.7 mg/dL (0.0-1.0) 05/27/25 12:45 AST 26 U/L (5-37) 05/27/25 12:45 ALT 20 U/L (0-40) 05/27/25 12:45 Alkaline Phosphatase 157 U/L (39-117) H 05/27/25 12:45 Total Protein 6.7 g/dL (6.5-8.0) 05/27/25 12:45 Albumin 4.5 g/dL (3.5-5.0) 05/27/25 12:45 Discharge Plan Discharge Anticipated Discharge Date/Time: 05/28/25 15:26 Patient Disposition: Home, Self-Care Discharge Diagnosis: hyperkalemia ESRD on HD diarrhea Referrals: Jeffery Hicks MD [Physician, Nephrology] - 2 Weeks Pillo Trejo FNP- [Primary Care Provider, Internal Medicine] - 1 Week Discharge Medications: Continued atorvastatin 20 mg tablet 20 mg PO DAILY clonidine 0.3 mg/24 hr patch weekly 1 patch topical FR@0900 gabapentin 100 mg capsule 200 mg PO BID sertraline 50 mg tablet 50 mg PO DAILY nitroglycerin 0.4 mg Tablet, Sublingual 0.4 mg SUBLINGUAL Q5M PRN (Reason: Chest Pain) Rx Instructions: do not exceed 3 doses per episode losartan 100 mg tablet 100 mg PO BID carvedilol 12.5 mg tablet 25 mg PO BID buspirone 15 mg tablet 15 mg PO BID alprazolam 0.5 mg Tablet Extended Release 24 Hr 0.5 mg PO BID PRN (Reason: Anxiety) Triphrocaps 1 mg capsule 1 cap PO BEDTIME trazodone 100 mg tablet 100 mg PO BEDTIME PRN (Reason: insomnia) loperamide [Anti-Diarrheal (loperamide)] 2 mg tablet 2 mg PO BID PRN (Reason: Loose Stool) levetiracetam 250 mg tablet 750 mg PO MOWEFR@1600 levetiracetam 250 mg tablet 750 mg PO BID@0900,2100 Discharge Orders: Discharge Order (Routine); Ordered 05/28/25 Ordered By: Mohsen Ortiz Diet: Advance to usual diet Activity on Discharge: As tolerated Stand Alone Forms: Patient Portal Discharge page Print Language: Greenlandic Other Ambulatory Orders: CDiff Gene PCR (Routine) Timeframe: 1 Day Facility: [facility] - Location: Laboratory Ordered By: Mohsen Ortiz GI Panel (Routine) Timeframe: 1 Day Facility: [facility] - Location: Laboratory Ordered By: Mohsen Ortiz Care Plan Goals: normal potassium Health Concerns: hyperkalemia ESRD on HD diarrhea Plan of Treatment: resume dialysis as per usual schedule MWF follow up with your dump 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 difficile PCR Please follow up with your primary care doctor within 1 week. Return to the hospital if you experience recurrent or worsening symptoms. Assessment: See Discharge Summary. Discharge Date/Time: 05/28/25 17:56
[2025-05-28 15:49] VITALS: BP 170/110; PULSE 87; RESP 18; TEMP 36.5; O2SAT 96
[2025-05-28 16:53] VITALS: BP 145/108; PULSE 82; RESP 18; TEMP 36.9; O2SAT 96
--- NOTE | 2025-05-28 17:03 | PC.NURSE ---
Elevated BP before dialysis and afterwards ( 170/100, 145/108 manual and auto). aware. Pt allowed to d/c and will follow up outpt,
== END 2025-05-28 17:56 | disposition home or self-care (01) | DRG 640 ==
LOC: HO.ED 13:31 → HO.EDOVER 14:33 → HO.S3 14:49
PROVIDERS: Internal Medicine; Physician Assistant Medical; Admitting Provider Hospitalist; Emergency Provider Emergency Medicine; PCP Nurse Practitioner Family; Visit Provider Family Medicine
DX: E87.5 Hyperkalemia (principal); N18.6 End stage renal disease; I12.0 Hypertensive chronic kidney disease with stage 5 chronic kidney disease or end stage renal disease; G40.909 Epilepsy, unspecified, not intractable, without status epilepticus; F39 Unspecified mood [affective] disorder; E78.5 Hyperlipidemia, unspecified; K52.9 Noninfective gastroenteritis and colitis, unspecified; D63.1 Anemia in chronic kidney disease; Z99.2 Dependence on renal dialysis; Z91.158 Patient's noncompliance with renal dialysis for other reason; Z87.891 Personal history of nicotine dependence; Z79.899 Other long term (current) drug therapy
CPT/HCPCS: 36415; 80048; 80053; 83735; 85025; 90999; 93005; 99285; J0613

== ENCOUNTER → 2025-05-27 13:21 | Outpatient (BNV) | payer OTHER, SELFPAY | PROVIDERS: Admitting Provider Hospitalist; Emergency Provider Emergency Medicine; PCP Nurse Practitioner Family; Visit Provider Internal Medicine Cardiovascular Disease | DX: I44.0 Atrioventricular block, first degree (principal); I45.4 Nonspecific intraventricular block | CPT/HCPCS: 93010 ==

== ENCOUNTER → 2025-05-27 14:32 | Outpatient (BNV) | payer OTHER, SELFPAY | PROVIDERS: Admitting Provider Hospitalist; Emergency Provider Emergency Medicine; PCP Nurse Practitioner Family; Visit Provider Physician Assistant Medical | DX: E87.5 Hyperkalemia (principal); N18.6 End stage renal disease; Z99.2 Dependence on renal dialysis; K52.9 Noninfective gastroenteritis and colitis, unspecified | CPT/HCPCS: 99223; 99239 ==

== ENCOUNTER 2025-09-07 14:02 | Outpatient (REF) | payer OTHER, SELFPAY ==
[2025-09-07 16:30] LABS: Folate 3.4 ng/mL (> or = 4.0); Vitamin B12 291 pg/mL (200-900)
[2025-09-11 13:33] LABS: Vitamin D 25-OH, D2 <4 ng/mL; Vitamin D 25-OH, D3 32 ng/mL; Vitamin D 25-OH, Total 32 ng/mL (30-100)
== END 2025-09-07 14:03 | disposition home or self-care (01) ==
LOC: HO.LAB 14:02
PROVIDERS: PCP Nurse Practitioner Family; Visit Provider Nurse Practitioner Family
DX: K21.9 Gastro-esophageal reflux disease without esophagitis (principal); K52.9 Noninfective gastroenteritis and colitis, unspecified; E55.9 Vitamin D deficiency, unspecified; R10.9 Unspecified abdominal pain
CPT/HCPCS: 36415; 82306; 82607; 82746; 83013; 86140; 86364; 99202

== ENCOUNTER 2025-09-07 14:02 | Outpatient (AMB) | payer OTHER, SELFPAY ==
--- NOTE | 2025-09-07 14:06 | MHC.OFFVIS ---
Vital Signs 09/07/25 14:13 Height 6 ft Weight 244 lb 11.41 oz BMI 33.2 BP 156/94 H Blood Pressure Location Rt brachial Position Sitting Pulse 82 Pulse Source Pulse Oximeter Pulse Oximetry (%) 96 Oxygen Delivery Method Room Air Intake Visit Reasons: Diarrhea Intake Note: New pt for chronic diarrhea + GI upset eval. Hx of C. Diff. CC: C/O frequent diarrhea and GI upset, nausea and GERD also reported. Pt states that he will often have multiple BMs per day. He does sometimes miss dialysis appointments due to the urgency and severity of the diarrhea. Fund Development Manager Required: No Accompanied by: Self / Same As Patient Allergies ceftriaxone Adverse Reaction (Verified 09/07/25 14:09) Nausea and Vomiting lorazepam (From Ativan) Adverse Reaction (Verified 09/07/25 14:09) Shakiness metoclopramide (From Reglan) Adverse Reaction (Verified 09/07/25 14:09) Nausea HPI HPI Diarrhea: Details: 29-year-old male with past medical history of chronic diarrhea, insomnia, seated diarrhea, ESRD on dialysis, seizure disorder, thrombocytopenia, hypertension is here today for initial consultation. Patient is here to evaluate his bowel issues that he has been dealing with in the past several years. Patient reports however getting worse. Diagnosed with C diff in the past and last stool sample back in February of this year showed positive C diff, however toxins a and B were negative. 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 Patient however does report frequent postprandial loose stools. He admits not taking enough fiber. Goes to dialysis 3 times a week and sometimes has to miss it due to his frequent stooling. Patient also reports epigastric pain postprandially. Denies any nausea or vomiting. Reports occasional dyspepsia without dysphagia or odynophagia. [facility] Medical History (Updated 09/07/25 @ 14:09 by MATTIE Blount) Fistula ESRD on dialysis Renal failure Anemia ESRD (end stage renal disease) Seizure disorder Syncope ESRD needing dialysis Drug abuse Normocytic anemia CKD (chronic kidney disease) Anemia HTN (hypertension) End stage chronic kidney disease Bilateral lower extremity pain Back pain Family History Sister Substance use disorder Social History Household Members: Family Household Members Other:: mom, step dad, sister and nephew Housing: House Do you presently have visiting nurse or other home services: Yes (vna 1x/month, motion picture narrator - daily.) Alcohol intake: unknown Comment: SEIZURE PRECAUTIONS Patient Tobacco Use Status: Former Tobacco user Tobacco use type: Smokeless Tobacco e-Cigarette/Vaping Use: Never Used Substance Use Type: Marijuana Advance Directives Date on File: 12/11/23 service: No Cognitive needs: No Hearing needs: No Vision needs: No Review of Systems Const Denies weight gain and Denies weight loss ENT Reports no additional complaints, Denies dysphagia and Denies odynophagia Card Reports no additional complaints Resp Reports no additional complaints GI Reports abdominal pain, Denies belching, Denies melena, Reports bloating, Denies change in bowel habits, Denies dysphagia, Denies excessive flatus, Denies dyspepsia, Reports heartburn, Denies diarrhea, Reports loose stools, Denies nausea, Denies odynophagia and Denies vomiting Reports no additional complaints Musc Reports no additional complaints Neuro Reports no additional complaints Psych Reports no additional complaints Endo Reports no additional complaints Physical Exam Vital Signs: Last Vital Signs Pulse 82 09/07/25 14:13 BP 156/94 H 09/07/25 14:13 Pulse Ox 96 09/07/25 14:13 Oxygen Delivery Method Room Air 09/07/25 14:13 BMI result Body Mass Index 33.2 Const General: healthy appearing and no acute distress Nutritional Appearance: obese Orientation/consciousness: patient oriented x3 Resp Effort & Inspection: normal respiratory effort, able to speak in complete sentences, no tracheal deviation and symmetric chest movement Auscultation: clear to auscultation bilaterally Cardio Rate: regular rate GI Inspection: Yes normal to inspection, No distended and Yes obesity Palpation (GI): Soft to palpation, not firm, nontender and No hepatosplenomegaly present Auscultation: normal bowel sounds General: Yes no CVA tenderness Back/Spine/Pelvis Back: no CVA tenderness Skin General skin exam: elasticity normal, turgor normal and dry skin Neuro General: patient oriented x3 Psych Appearance: grossly normal Mental Status: mental status grossly normal Assessment & Plan Assessment & Plan (1) Chronic diarrhea: Code(s): K52.9 - Noninfective gastroenteritis and colitis, unspecified Category: Medical (2) Postprandial diarrhea: Code(s): K52.9 - Noninfective gastroenteritis and colitis, unspecified (3) GERD (gastroesophageal reflux disease): Code(s): K21.9 - Gastro-esophageal reflux disease without esophagitis Qualifiers: Esophagitis presence: esophagitis presence not specified Qualified Code(s): K21.9 - Gastro-esophageal reflux disease without esophagitis Plan Will recheck C diff, CRP, fecal calprotectin, transglutaminase, H pylori, vitamin-D, B12, folate and GI panel. Patient will start taking fiber daily. Increase fluid intake and activity to promote bowel motility. Discussed with patient low FODMAP diet. List of recommended as well as list of food to avoid given to patient. Patient will start taking pantoprazole daily. Avoid dietary triggers in late night snacking. Staying upright for minimum 3 hours after meals discussed with patient. Patient is here today with his sister who also is a patient of mine. She is here with patient for emotional support and to help him remember all the steps that we have discussed. Patient will return to the office in 3 months, sooner on as needed basis. Both patient and his sister are agreeable to plan of care and verbalize understanding of instructions. They were given the opportunity to ask questions and all questions answered. Thank you for allowing me to participate in his care Orders: Orders C Reactive Protein 09/07/25 K58.9 - Irritable bowel syndrome, unspecified CDiff Gene PCR 09/07/25 R19.7 - Diarrhea, unspecified Vitamin D 25-OH (D2 and D3) 09/07/25 E55.9 - Vitamin D deficiency, unspecified Vitamin B12 and Folate 09/07/25 R19.7 - Diarrhea, unspecified Transglutaminase IgA 09/07/25 R10.9 - Unspecified abdominal pain H Pylori Breath Test 09/07/25 K21.9 - Gastro-esophageal reflux disease without esophagitis Calprotectin, Fecal 09/07/25 R15.9 - Full incontinence of feces GI Panel 09/07/25 R19.7 - Diarrhea, unspecified Medications: New methylcellulose (laxative) (Citrucel) take it with full glass of water 1,000 mg (2 x 500 mg) PO DAILY 60 tabs 2RF K52.9 - Noninfective gastroenteritis and colitis, unspecified pantoprazole take one tablet half an hour before breakfast 40 mg PO DAILY 30 tabs 3RF K21.9 - Gastro-esophageal reflux disease without esophagitis Coding Level of Care Code New Pt Level 4 (96175) Diagnoses Chronic diarrhea K52.9 Postprandial diarrhea K52.9 Gastroesophageal reflux disease, unspecified whether esophagitis present K21.9 Esophagitis presence: esophagitis presence not specified Time Spent (min) 50 Comment 35 minutes spent with patient and additional 15 minutes spent reviewing his records for
[2025-09-07 14:13] VITALS: BP 156/94; PULSE 82; O2SAT 96; BMI 33.2
--- OUTSIDE RECORDS SUMMARY | 2025-09-07 18:18 | XMS_ITS | Clinical Summary ---
Author Organization [facility] Address [address] [place] [phone] Phone Care Team Providers Care Retail Merchandiser Technician Name Role Phone Kalen Kerns MD Primary Care Provider [phone] Allergies No known active allergies Medications cloNIDine [...] to complete this topic Insurance KASIA MORA [id number] [facility] OTHER O O [facility] [place] [facility] [place] Address: [address] [place] [address] Care Teams Retail Merchandiser Technician Relationship Specialty Start Date End Date Kalen Kerns MD [address] [place] [address] [place] [address] PCP - General Pediatrics 05/27/18
== END 2025-09-07 14:36 | disposition home or self-care (01) ==
LOC: HO.HGI 14:02
PROVIDERS: PCP Nurse Practitioner Family; Visit Provider Nurse Practitioner Family
DX: K52.9 Noninfective gastroenteritis and colitis, unspecified (principal); K21.9 Gastro-esophageal reflux disease without esophagitis
CPT/HCPCS: 99204